=== PATIENT | female | born 1970 | race Caucasian/White ===

== ENCOUNTER 2020-08-29 11:15 | Outpatient (REF) | payer OTHER, SELFPAY | END 2020-08-29 11:16 | disposition home or self-care (01) | LOC: HO.LAB 11:15 | PROVIDERS: Visit Provider Internal Medicine | DX: Z20.828 Contact with and (suspected) exposure to other viral communicable diseases (principal) | CPT/HCPCS: C9803; U0003 ==

== ENCOUNTER → 2020-09-14 10:24 | Outpatient (BNVA) | payer OTHER, SELFPAY | PROVIDERS: Visit Provider Internal Medicine | DX: Z76.89 Persons encountering health services in other specified circumstances (principal) ==

== ENCOUNTER 2020-09-28 09:31 | Outpatient (REF) | payer OTHER, SELFPAY ==
[2020-09-28 10:31] LABS: Estimated Average Glucose 163 mg/dL; Hemoglobin A1c % 7.3 %
[2020-09-28 10:46] LABS: Alanine Aminotransferase 39 U/L (0-31); Albumin Level 4.3 g/dL (3.5-5.0); Alkaline Phosphatase 65 U/L (39-117); Anion Gap 14 (12-20); Aspartate Amino Transferase 27 U/L (5-31); Bilirubin Total 1.1 mg/dL (0.0-1.0); Blood Urea Nitrogen 15 mg/dL (9-16); Calcium 9.3 mg/dL (8.4-10.2); Carbon Dioxide 28 mmol/L (22-29); Chloride 100 mmol/L (96-108); Cholesterol 134 mg/dL; Estimated Glomerular Filt Rate > 60; Glucose Random 131 mg/dL (60-115); HDL Cholesterol 35 mg/dL; LDL Cholesterol Calculated 70 mg/dl; Potassium 4.7 mmol/l (3.3-5.1); Sodium 137 mmol/L (135-145); Total Protein 7.9 g/dL (6.5-8.0); Triglycerides 148 mg/dL
[2020-09-28 11:07] LABS: Free T4 (Free Thyroxine) 1.02 ng/dL (0.71-1.85); Thyroid Stimulating Hormone 5.97 uIU/mL (0.32-4.0); Vitamin D 25-OH Total 29.3 ng/mL (>30)
[2020-09-28 11:20] LABS: Creatinine Urine 129.17 mg/dL
[2020-09-28 11:33] LABS: Microalbum/Creatinine Ratio Ur 414.1 ug/mg cr
[2020-09-29 03:26] LABS: LDL Cholesterol Direct 80 mg/dL (<100)
== END 2020-09-28 09:32 | disposition home or self-care (01) ==
LOC: HO.LAB 09:31
PROVIDERS: Visit Provider Internal Medicine
DX: E11.9 Type 2 diabetes mellitus without complications (principal); E55.9 Vitamin D deficiency, unspecified; E03.9 Hypothyroidism, unspecified
CPT/HCPCS: 36415; 80053; 80061; 82043; 82306; 83036; 83721; 84439; 84443

== ENCOUNTER 2020-10-11 16:08 | Emergency (ER) | payer OTHER, SELFPAY ==
[2020-10-11 18:02] VITALS: BP 200/93; PULSE 66; RESP 16; TEMP 36.6; O2SAT 99; BMI 44.6
[2020-10-11 19:28] VITALS: BP 194/88; PULSE 68; RESP 16; O2SAT 99
--- NOTE | 2020-10-11 19:31 | ED.GENADULT ---
HPI - General Adult General Chief complaint: General Medical Stated complaint: Medical Refill Time Seen by Provider: 10/11/20 19:16 Source: patient Mode of arrival: ambulatory Limitations: no limitations History of Present Illness HPI narrative: Patient comes to emergency room requesting medication refill. Patient states she was patient of Dr. Caldera, unfortunately she has not been able to find another primary care physician. Patient has an appointment pending, however she ran out of lisinopril. Patient is asymptomatic, however, on triage she was noted that her blood pressure is 200/93 Related Data Home Medications Medication Instructions Recorded Confirmed atorvastatin 40 mg tablet 40 mg PO DAILY 09/14/20 09/14/20 chlorthalidone 25 mg tablet 12.5 mg PO DAILY 09/14/20 09/14/20 lisinopril 40 mg tablet 40 mg PO DAILY 09/14/20 09/14/20 metformin 500 mg tablet,extended 1,000 mg PO BID 09/14/20 09/14/20 release 24 hr metoprolol tartrate 100 mg tablet 100 mg PO BID 09/14/20 09/14/20 omeprazole 40 mg capsule,delayed 40 mg PO DAILY 09/14/20 09/14/20 release semaglutide 0.5 mg SUBCUT QWEEK ml 09/14/20 09/14/20 Previous Rx's Medication Instructions Recorded blood sugar diagnostic #100 ea 07/24/20 levothyroxine 125 mcg tablet 125 mcg PO DAILY 30 Days #30 tab 09/28/20 lisinopril 40 mg PO DAILY #90 tab 10/11/20 Allergies Allergy/AdvReac Type Severity Reaction Status Date / Time shellfish derived Allergy Severe ANAPHALAXIS Verified 09/14/20 11:16 [SHELLFISH DERIVED] Iodinated Contrast Media Allergy Unknown CAN NOT Verified 09/14/20 11:16 [IODINATED CONTRAST MEDIA - HAVE DUE IV DYE] TO SHELLFISH ALLERGY shellfish Allergy Unknown Unknown Uncoded 09/14/20 11:16 Review of Systems Review of Systems: Constitutional : No Weight loss, No Fever, No Chills, No Night Sweats, No Fatigue, No Malaise ENT/Mouth : No Hearing loss, No Ear Pain, No Nasal Congestion, No Sinus Pain, No Hoarseness, No sore throat, No Rhinorrhea, No Swallowing Difficulty Eyes: No Eye Pain, No Swelling, No Redness, No Foreign Body, No Discharge, No Vision Changes Cardiovascular : No Chest Pain, No SOB, No Dyspnea on Exertion, No Orthopnea, No Edema, No Palpitations Respiratory : No Cough, No Sputum, No Wheezing, No Smoke Exposure, No Dyspnea Gastrointestinal : No Nausea, No Vomiting, No Diarrhea, No Constipation, No abdominal Pain, No Hematochezia, No Melena Genitourinary : no irregular bleeding, No Dysuria, No Urinary Frequency, No Hematuria, No Urinary Incontinence, No Urgency, No Flank Pain, No Urinary Flow Changes, No Hesitancy Musculoskeletal : No joint pain, No Myalgias, No Joint Swelling Skin : No Skin Lesions, No rash Neuro : No Weakness, No Numbness, No Paresthesias, No Loss of Consciousness, No Dizziness, No Headache Psych : No Anxiety/Panic, No Depression, No SI/HI/AH/VH, No Social Issues, Heme/Lymph: No Bruising, No Bleeding,No Lymphadenopathy Endocrine : No Polyuria, No Polydipsia, No Temperature Intolerance PMFSH Past Medical History Medical History HLD (hyperlipidemia) HTN (hypertension) Hypothyroidism T2DM (type 2 diabetes mellitus) Vitamin D deficiency Surgical History Hx of section Family History Family History Father No problems noted. Mother Breast cancer Social History Social History Alcohol intake: former Smoking Status: Never smoker Advance Directives: No Advance Directives Information Provided: Yes Physical Exam Vital Signs: Vital Signs: Last Vital Signs Temp 97.8 F 10/11/20 18:02 Pulse 68 10/11/20 21:22 Resp 16 10/11/20 21:22 BP 149/84 H 10/11/20 21:22 Pulse Ox 99 10/11/20 21:22 Body Mass Index 44.6 Appearance: Alert. Oriented X3. No acute distress. Eyes: Pupils equal, round and reactive to light. ENT: Pharynx normal. Neck: Normal inspection. Neck supple. No lymph nodes noted. No crepitus CVS: Normal heart rate and rhythm. Pulses normal. Normal S1 and S2 Respiratory: No respiratory distress. Breath sounds normal. No Wheezing. No rales Abdomen: Soft and nontender. No rigidity. No distention. good BS x4 Skin: Skin warm and dry. Normal skin color. Normal skin turgor. Extremities: No lower extremity edema. No lower extremity edema. No Lacerations. No Rash Neuro: Oriented X 3. No motor deficit. No sensory deficit. Moving all extermities. No slurred speech. Course Course Course Narrative: Patient was given 1 dose of p.o. labetalol to control the blood pressure. Patient was given a prescription of lisinopril. Patient takes for other medications but states she has been off for over a month. Patient received 1 dose of p.o. labetalol, blood pressure is now 149/84, patient asymptomatic. Prescription to lisinopril as requested was sent to her pharmacy. Discharge Plan Discharge Clinical Impression: Medication refill HTN (hypertension) Qualifiers: Hypertension type: unspecified Qualified Code(s): I10 - Essential (primary) hypertension Patient Disposition: Home, Self-Care Instructions: Hypertension (ED) Additional Instructions: Please follow-up with your primary care physician tomorrow. If you have any worsening or new symptoms, please return to the emergency room or call 911 Prescriptions: New lisinopril 40 mg tablet 40 mg PO DAILY Qty: 90 RF: 0 No Action (DME) FreeStyle Precision [employer] Antonio Strips Strip See Rx Instructions .ROUTE .MEDSUPPLY Qty: 100 RF: 11 levothyroxine 125 mcg tablet 125 mcg PO DAILY 30 Days Qty: 30 RF: 11 metformin 500 mg tablet extended release 24 hr 1,000 mg PO BID RF: 0 omeprazole 40 mg capsule,delayed release(DR/EC) 40 mg PO DAILY RF: 0 metoprolol tartrate 100 mg tablet 100 mg PO BID RF: 0 atorvastatin 40 mg tablet 40 mg PO DAILY RF: 0 chlorthalidone 25 mg tablet 12.5 mg PO DAILY RF: 0 lisinopril 40 mg tablet 40 mg PO DAILY RF: 0 Ozempic 0.25 mg or 0.5 mg(2 mg/1.5 mL) pen injector 0.5 mg subcut QWEEK RF: 0
[2020-10-11 19:45] VITALS: BP 196/88; PULSE 68
[2020-10-11] MEDS: Labetalol HCL 100 MG TABLET PO (19:45)
[2020-10-11 20:27] VITALS: BP 189/81; PULSE 66; RESP 16; O2SAT 99
[2020-10-11 21:22] VITALS: BP 149/84; PULSE 68; RESP 16; O2SAT 99
== END 2020-10-11 21:41 | disposition home or self-care (01) ==
PROVIDERS: Emergency Provider Emergency Medicine
DX: I10 Essential (primary) hypertension (principal); Z76.0 Encounter for issue of repeat prescription; E11.9 Type 2 diabetes mellitus without complications
CPT/HCPCS: 99283; 99284

== ENCOUNTER 2020-12-05 10:47 | Outpatient (REF) | payer OTHER, SELFPAY ==
[2020-12-05 11:27] LABS: MANUAL DIFF FLAG NO
[2020-12-05 11:37] LABS: Basophils Percent Auto 0.4 % (0-2); Eosinophils Absolute Auto 0.2 X10*3/uL (0.0-0.4); Eosinophils Percent Auto 2.6 % (0-4); Hematocrit 37.4 % (37-47); Hemoglobin 11.6 g/dl (12.0-16.0); Imm Gran Abs Auto 0.04 X10*3/uL (0.00-0.03); Imm Gran Pct Auto 0.6 % (0.0-0.4); Lymphocytes Percent Auto 27.3 % (20-40); Mean Corpuscular Hemoglobin 25.6 pg (27.0-33.0); Mean Corpuscular Volume 82.4 fL (80-98); Mean Platelet Volume 10.2 fL (9.4-12.3); Monocytes Absolute Auto 0.6 X10*3/uL (0.1-1.2); Monocytes Percent Auto 8.9 % (2-11); Neutrophils Absolute Auto 4.4 X10*3/uL (2.0-8.3); Neutrophils Percent Auto 60.2 % (45-73); Platelet Count 259 X10*3/uL (160-400); Red Blood Count 4.54 X10*6/uL (4.20-5.50); Red Cell Distribution Width 14.2 % (11.0-16.0); White Blood Count 7.2 X10*3/uL (4.8-10.8)
[2020-12-05 11:41] LABS: Estimated Average Glucose 131 mg/dL; Hemoglobin A1c % 6.2 %
[2020-12-05 11:49] LABS: Glucose Urine UA NEG (NEG); Leukocyte Esterase Urine NEG (NEG); Nitrite Urine NEG (NEG); Specific Gravity - Urine >= 1.030 (1.005-1.025); Urine Blood TRACE (NEG); Urine Ketones NEG (NEG); Urine Protein 2+ MG/DL (NEG-TRACE)
[2020-12-05 12:05] LABS: Alanine Aminotransferase 43 U/L (0-31); Alkaline Phosphatase 60 U/L (39-117); Anion Gap 12 (12-20); Aspartate Amino Transferase 29 U/L (5-31); Bilirubin Total 0.9 mg/dL (0.0-1.0); Blood Urea Nitrogen 10 mg/dL (9-16); Calcium 9.4 mg/dL (8.4-10.2); Carbon Dioxide 25 mmol/L (22-29); Chloride 104 mmol/L (96-108); Estimated Glomerular Filt Rate > 60; Glucose Random 102 mg/dL (60-115); Potassium 4.4 mmol/L (3.3-5.1); Sodium 137 mmol/L (135-145); Total Protein 7.6 g/dL (6.5-8.0)
[2020-12-05 12:05] LABS: Appearance Urine HAZY; Color Urine YELLOW
[2020-12-05 12:06] LABS: Cholesterol 211 mg/dL; HDL Cholesterol 37 mg/dL; LDL Cholesterol Calculated 139 mg/dl; Triglycerides 177 mg/dL
[2020-12-05 12:16] LABS: Thyroid Stimulating Hormone 3.86 uIU/mL (0.32-4.0)
[2020-12-05 12:23] LABS: Bacteria Urine 1+ /LPF; RBC Urine 0-2 /HPF (0); Squamous Epithelial Cell Urine TRACE /LPF; WBC Urine 0 /HPF (0-4)
[2020-12-05 12:39] LABS: Creatinine Urine 70.78 mg/dL
[2020-12-05 12:52] LABS: Creatinine Urine 72.59 mg/dL
== END 2020-12-05 10:48 | disposition home or self-care (01) ==
LOC: HO.LAB 10:47
PROVIDERS: Absent Provider Internal Medicine; PCP Internal Medicine; Visit Provider Internal Medicine
DX: I10 Essential (primary) hypertension (principal); E03.9 Hypothyroidism, unspecified; E11.9 Type 2 diabetes mellitus without complications; E78.00 Pure hypercholesterolemia, unspecified
CPT/HCPCS: 36415; 80053; 80061; 81001; 81003; 82043; 83036; 84439; 84443; 85025

== ENCOUNTER → 2021-01-16 09:16 | Outpatient (REF) | payer OTHER, SELFPAY ==
--- NOTE | 2021-01-16 09:30 | CA_ITS ---
Transthoracic Echocardiogram Patient (Last, First, Middle): Marli Hanna J Gender: Female Date of : 1970 Age: 50 Procedure Date: 01/16/2021 Procedure Type: Transthoracic Echocardiogram Location: OP Height: 154.94 cm Weight: 104.33 kg BSA: 2.00 m2 Heart Rate: bpm BP: 140 / 90 mmHg Mobile Home Installer: Referring MD: Phill Banuelos MD Nanny/Household Manager: Tony Maddox MD Symptoms: R06.09 DYSPNEA, I49.9 CARDIAC ARRHYTHMIAS LVH PVCS Study Quality: Fair ECG Rhythm: Sinus Conclusions: - 1. Low normal LV systolic function with pseudonormal filling pattern 2. Mild mitral regurgitation 3. Normal RV systolic pressure 4. No pericardial effusion 5. Mildly dilated left atrium Findings Left Ventricle Normal left ventricular size, thickness, and systolic function. The visually estimated ejection fraction is between 50-55%. Spectral Doppler is indicative of a pseudonormal filling pattern. E/E prime ratio is between 8 and 15 consistent with indeterminate filling pressures. Right Ventricle Normal right ventricular cavity size and systolic function. Atria The left atrium is mildly dilated. There is no evidence of interatrial shunt. The right atrium is normal in size. Aortic Valve The aortic valve structure and function is likely normal. There is no aortic valve stenosis. There is no aortic valve regurgitation. Mitral Valve Normal mitral valve structure and function. There is mild mitral valve regurgitation. There is no mitral valve stenosis. Pulmonic Valve The pulmonic valve was not well visualized. Tricuspid Valve Likely normal tricuspid valve structure and function. There is trace tricuspid valve regurgitation. The right ventricular systolic pressure is normal. The right ventricular systolic pressure is 18 mmHg. There is no evidence of pulmonary hypertension. Great Vessels All visible segments of the aorta are normal in size. The pulmonary artery was not well visualized. Venous The inferior vena cava is normal in size and collapses greater than 50% with inspiration. Pericardium/Pleural There is no evidence of pericardial effusion. Prior Study Comparison No previous study in last 5 years for comparison. Measurements 2D Linear Measurements IVSd: 1.14 0.6-0.9/0.6-1.0 cm LVIDd: 5.17 3.9-5.3/4.2-5.9 cm LVIDd Index: 2.59 2.4-3.2/2.2-3.1 cm/m2 LVIDs: 3.79 2.0-3.6 cm LVPWd: 1.12 0.7-1.1 cm Ao Root: 2.60 2.1-3.5 cm LA Diam: 4.20 2.7-3.8/3.0-4.0 cm LAIDs Index: 2.10 1.5-2.3 cm/m2 LV Mass: 282.86 67-162/88-224 g LV Mass Index: 141.43 43-95/49-115 g/m2 LVOT Diam: 2.10 3.0+(-)1.3 cm Mitral Valve MV Pk E: 1.06 MV PK A: 0.72 MV Decel Time: 153.00 E/A: 1.50 E'Lateral: 7.16 E'Medial: 6.77 E/E' Med: 15.70 E/E' Lat: 14.80 PHT: 45.00 MVA PHT: 4.89 Decel [place]: 6.94 Aortic Valve AoV Pk Eric: 1.40 AoV Mn Eric: 0.92 AoV VTI: 0.34 AoV Pk Grad: 8.00 Aov Mn Grad: 4.00 TANIA Cont.VTI: 2.32 LVOT LVOT Pk Eric: 0.95 LVOT Mn Eric: 0.65 LVOT VTI: 0.23 LVOT Pk Grad: 4.00 LVOT Mn Grad: 2.00 LVOT Diam: 2.10 LVOT Area: 3.46 Diastolic Function MV Pk E: 1.06 MV Pk A: 0.72 E/A: 1.50 E'Medial: 6.77 E/E' Med: 15.70 E' Laterial: 7.16 E/E' Lat: 14.80 Tricuspid Valve TR Pk Eric: 1.91 TR Pk Grad: 15.00 RA Press: 3.00 RVSP: 18.00 Great Vessels Aorta Ao Root-2D: 2.60 2.0-3.7 cm Ao Asc: 3.00 2.1-3.4 cm Pulmonary Valve PV Pk Eric: 0.76 Peak PV Grad: 2.00 Updated in Other Vendor System with Status of Final Tony Maddox MD electronically signed on 01/16/2021 12:09:26 PM with status of Final
== END ==
LOC: HO.CARD 09:16
PROVIDERS: Visit Provider Internal Medicine
DX: R06.09 Other forms of dyspnea (principal); I49.9 Cardiac arrhythmia, unspecified; I49.3 Ventricular premature depolarization; I51.7 Cardiomegaly
CPT/HCPCS: 93306

== ENCOUNTER → 2021-01-30 12:44 | Outpatient (BNVA) | payer OTHER, SELFPAY | PROVIDERS: PCP Internal Medicine; Referring Provider Internal Medicine; Visit Provider Internal Medicine | DX: R06.02 Shortness of breath (principal); R94.31 Abnormal electrocardiogram [ECG] [EKG]; E11.8 Type 2 diabetes mellitus with unspecified complications; E78.5 Hyperlipidemia, unspecified; I10 Essential (primary) hypertension | CPT/HCPCS: 93005; 99202 ==

== ENCOUNTER → 2021-02-14 09:26 | Outpatient (BNVA) | payer OTHER, SELFPAY | PROVIDERS: PCP Internal Medicine; Visit Provider Internal Medicine ==

== ENCOUNTER → 2021-02-15 09:22 | Outpatient (REF) | payer OTHER, SELFPAY ==
--- NOTE | ~2021-02-15 | NM_ITS ---
Myocardial perfusion study Indication: Shortness of breath evaluate for myocardial ischemia Technique: The patient was brought in for a Lexiscan perfusion study on 02/15/2021. Patient performed low-level exercise and was injected 0.4 mg of Lexiscan intravenously. Within a minute of injection, 35 mCi of sestamibi was given intravenously. Images were obtained using the SPECT gamma camera interlaced with the gating device. Images were obtained in supine position. Resting perfusion study was performed on 02/19/2021. Patient was administered 35 mCi of sestamibi intravenously at rest. Images were then obtained in supine position. Images obtained with and without CT attenuation. Total DLP 180 mGy-cm. Images were processed with the software and compared side to side in short axis, horizontal long axis and vertical long axis views. Findings: The stress perfusion study showed nonattenuated images show minimal thinning in the distal lateral wall of the LV myocardium otherwise normal uptake of radiotracer in all segments of LV myocardium. Attenuated corrected images show minimal thinning of the distal septum of the LV myocardium.. The gated study shows normal LV systolic function with calculated LVEF of 56%. LV cavity is normal in size. The gated study shows normal systolic wall thickening and contraction of segments. Resting study shows nonattenuated images show normal uptake of radiotracer in all segments of myocardium except for minimal thinning of the distal lateral wall. Attenuation corrected images show mildly reduced uptake in the distal septum of the LV myocardium.. Gating at rest reveals normal systolic wall motion with ejection fraction at 53%. The findings are consistent with normal myocardial perfusion. NM/NM cardiolite stress test Impression: 1. Myocardial perfusion imaging study shows normal myocardial perfusion 2. Gated LVEF is 56% 3. Transient ischemic dilatation not present EKG is nondiagnostic for ischemia
--- NOTE | 2021-02-15 09:25 | CA_ITS ---
Acquisition Time: 2021-02-15 09:34:18 Total Exercise Time: 00:02:38 Test Indications: SOB Medications: Protocol: CLAUDY Max HR: 151 BPM 88% of Pred: 171 BPM Max BP: 198/076 mmHG Max Work Load: 4.6 METS Exercise stress test with exercise 2 min 38 sec of Claudy protocol, with moderate shortness of breath and request to slow exercise. Treadmill placed in recovery and slowed to 0.8 MPH. Testing changed to a pharmacological stress test with Lexiscan injection, without anginal symptoms, with isolated PVC and runs of ventricular bigeminy, with normotensive response to injection, with nondiagnostic EKG for ischemia. Nuclear images pending. Test reviewed with Dr Adame. Referred By: Stone Adame Overread By: JUDY MEADE
== END ==
LOC: HO.CARD 09:22
PROVIDERS: Visit Provider Internal Medicine
DX: R06.02 Shortness of breath (principal)
CPT/HCPCS: 78452; 93017; A9500; J0280; J2785

== ENCOUNTER 2021-03-02 09:05 | Outpatient (REF) | payer OTHER, SELFPAY ==
--- NOTE | ~2021-03-02 | MM_ITS ---
EXAMINATION: MM SCREENING DIGITAL BREAST TOMOSYNTHESIS, BILATERAL CLINICAL INFORMATION: Screening. Asymptomatic. The lifetime risk of breast cancer based on the Tyrer-Cuzick Model is 14%. COMPARISON: Mammography: 06/25/2017, 03/22/2016, 10/19/2014 TECHNIQUE: Digital breast tomosynthesis is performed in both the craniocaudal and mediolateral oblique views along with computer-aided detection (CAD). Synthesized 2D images are generated from the tomosynthesis. Additional views are provided: Exaggerated right CC, left CC, bilateral MLO. FINDINGS: The breasts are almost entirely fatty (ACR BI-RADS breast composition Category a). There are no significant masses, abnormal calcifications, or other abnormalities. Background stromal and fibroglandular densities are stable. There is a group of 3 punctate round calcifications central right breast mid depth. Mildly prominent draining vein again seen right axilla. The axillary nodes and skin contours are unremarkable. MM/MM tomosynthesis screening BI IMPRESSION: No significant changes from prior exams. ASSESSMENT: BI-RADS 2: Benign RECOMMENDATION: Routine annual mammography screening. This patient's information was entered into a reminder system with a target due date for their next mammogram.
--- NOTE | ~2021-03-02 | MM_ITS ---
EXAMINATION: BONE DENSITOMETRY CLINICAL INDICATION: Postmenopausal. COMPARISON: Baseline BD dated 03/20/2012. TECHNIQUE: Using a Prezto DXA System (software version: 13.1) manufactured by [employer], dual-energy x-ray absorptiometry was performed of the lumbar spine and left hip. The images are of good technical quality. Summary results are attached. FINDINGS: AP SPINE L1-L4: Current: BMD 1.152 g/cm2, Z-score -1.1, T-score -0.2, normal, 0.8% decrease from baseline (<5% change is not significant). Baseline: BMD 1.161 g/cm2. LEFT FEMUR, NECK: Current: BMD 1.074 g/cm2, Z-score 0.3, T-score 0.3, normal. Baseline: BMD 1.134 g/cm2. LEFT FEMUR, TOTAL: Current: BMD 1.259 g/cm2, Z-score 1.6, T-score 2.0, normal, 1.8% increase from baseline (<5% change is not significant). Baseline: BMD 1.237 g/cm2. IDENTIFIED RISK FACTORS: Early menopause, secondary osteoporosis. HISTORY OF FRACTURE: None listed. MEDICATIONS: None listed. MM/XR DEXA axial skeleton IMPRESSION: 1. DIAGNOSIS: Normal bone density based on the lowest T-score value of -0.2 in the lumbar spine applying World Health Organization criteria. 2. 10-YEAR FRACTURE RISK PREDICTION, FRAX: According to the guidelines, FRAX calculation should only be performed on patients in the osteopenia bone density category. Therefore, FRAX was not performed on this patient. 3. Treatment Recommendations: NOF guidelines recommend consideration for treatment in postmenopausal women and men age 50 and older presenting with the following: -A hip or vertebral (clinical or morphometric) fracture. -T-score less than or equal to -2.5 at the femoral neck or spine after appropriate evaluation to exclude secondary causes. -Low bone mass at the hip or spine and a 10-year fracture probability by FRAX of greater than or equal to 3% for hip fracture or greater than or equal to 20% for major osteoporotic fracture based on the [place] adapted WHO algorithm. 4. Other Recommendations: All treatment decisions require clinical judgment and consideration of individual patient factors, including patient preferences, comorbidities, previous drug use, risk factors not captured in the FRAX model (e.g. frailty, falls, vitamin D deficiency, increased bone turnover, interval significant decline in bone density) and possible under or overestimation of fracture risk by FRAX. FUTURE SCAN RECOMMENDATION: People with diagnosed cases of osteoporosis or at high risk for fracture should have regular bone mineral density tests. For patients eligible for Medicare, routine testing is allowed once every 2 years. The testing frequency can be increased to one year for patients who have rapidly progressing disease, those who are receiving or discontinuing medical therapy to restore bone mass, or have additional risk factors.
== END 2021-03-02 09:06 | disposition home or self-care (01) ==
LOC: HO.MAMMO 09:05
PROVIDERS: Visit Provider Internal Medicine
DX: Z12.31 Encounter for screening mammogram for malignant neoplasm of breast (principal); M81.8 Other osteoporosis without current pathological fracture; Z78.0 Asymptomatic menopausal state
CPT/HCPCS: 77063; 77067; 77080

== ENCOUNTER 2021-03-30 11:21 | Outpatient (REF) | payer OTHER, SELFPAY ==
[2021-03-30 12:57] LABS: MANUAL DIFF FLAG NO
[2021-03-30 13:02] LABS: Basophils Percent Auto 0.3 % (0-2); Eosinophils Percent Auto 0.5 % (0-4); Hematocrit 34.2 % (37-47); Hemoglobin 10.5 g/dl (12.0-16.0); Imm Gran Abs Auto 0.02 X10*3/uL (0.00-0.03); Imm Gran Pct Auto 0.3 % (0.0-0.4); Lymphocytes Absolute Auto 1.8 X10*3/uL (1.2-4.9); Lymphocytes Percent Auto 29.5 % (20-40); Mean Corpuscular HGB Conc 30.7 g/dl (31.0-35.0); Mean Corpuscular Hemoglobin 25.8 pg (27.0-33.0); Mean Platelet Volume 10.7 fL (9.4-12.3); Monocytes Absolute Auto 0.5 X10*3/uL (0.1-1.2); Monocytes Percent Auto 8.6 % (2-11); Neutrophils Absolute Auto 3.7 X10*3/uL (2.0-8.3); Neutrophils Percent Auto 60.8 % (45-73); Platelet Count 245 X10*3/uL (160-400); Red Blood Count 4.07 X10*6/uL (4.20-5.50); Red Cell Distribution Width 14.2 % (11.0-16.0); White Blood Count 6.1 X10*3/uL (4.8-10.8)
[2021-03-30 13:28] LABS: Estimated Average Glucose 157 mg/dL; Hemoglobin A1c % 7.1 %
[2021-03-30 13:37] LABS: Alanine Aminotransferase 43 U/L (0-31); Alkaline Phosphatase 68 U/L (39-117); Anion Gap 12 (12-20); Aspartate Amino Transferase 28 U/L (5-31); Bilirubin Total 0.9 mg/dL (0.0-1.0); Blood Urea Nitrogen 14 mg/dL (9-16); Calcium 9.9 mg/dL (8.4-10.2); Carbon Dioxide 27 mmol/L (22-29); Chloride 105 mmol/L (96-108); Estimated Glomerular Filt Rate > 60; Glucose Random 141 mg/dL (60-115); Sodium 139 mmol/L (135-145); Total Protein 7.7 g/dL (6.5-8.0)
[2021-03-30 13:40] LABS: Creatinine Urine 196.36 mg/dL
[2021-03-30 14:03] LABS: Free T4 (Free Thyroxine) 1.19 ng/dL (0.71-1.85); Thyroid Stimulating Hormone 3.89 uIU/mL (0.32-4.0)
[2021-03-30 14:07] LABS: Microalbum/Creatinine Ratio Ur 1594.5 ug/mg cr
== END 2021-03-30 11:22 | disposition home or self-care (01) ==
LOC: HO.WFDLDS 11:21
PROVIDERS: Visit Provider Internal Medicine
DX: E11.9 Type 2 diabetes mellitus without complications (principal); I10 Essential (primary) hypertension; E03.9 Hypothyroidism, unspecified
CPT/HCPCS: 36415; 80053; 82043; 83036; 84439; 84443; 85025

== ENCOUNTER 2021-08-29 09:01 | Outpatient (REF) | payer OTHER, SELFPAY | END 2021-08-29 09:02 | disposition home or self-care (01) | LOC: HO.LAB 09:01 | PROVIDERS: Visit Provider Internal Medicine | DX: Z20.822 Contact with and (suspected) exposure to COVID-19 (principal) | CPT/HCPCS: C9803; U0003; U0005 ==

== ENCOUNTER 2021-11-05 10:21 | Outpatient (REF) | payer OTHER, SELFPAY ==
[2021-11-05 11:05] LABS: MANUAL DIFF FLAG NO
[2021-11-05 11:16] LABS: Basophils Percent Auto 0.2 % (0-2); Eosinophils Percent Auto 0.2 % (0-4); Hematocrit 36.8 % (37.0-47.0); Hemoglobin 11.5 g/dl (12.0-16.0); Imm Gran Abs Auto 0.02 X10*3/uL (0.00-0.03); Imm Gran Pct Auto 0.3 % (0.0-0.4); Lymphocytes Percent Auto 32.4 % (20-40); Mean Corpuscular HGB Conc 31.3 g/dl (31.0-35.0); Mean Corpuscular Hemoglobin 25.4 pg (27.0-33.0); Mean Corpuscular Volume 81.2 fL (80.0-98.0); Mean Platelet Volume 10.3 fL (9.4-12.3); Monocytes Absolute Auto 0.5 X10*3/uL (0.1-1.2); Monocytes Percent Auto 7.9 % (2-11); Neutrophils Absolute Auto 3.7 x10*3/uL (2.0-8.3); Platelet Count 257 X10*3/uL (160-400); Red Blood Count 4.53 X10*6/uL (4.20-5.50); Red Cell Distribution Width 14.4 % (11.0-16.0); White Blood Count 6.2 X10*3/uL (4.8-10.8)
[2021-11-05 11:28] LABS: Estimated Average Glucose 226 mg/dL; Hemoglobin A1c % 9.5 %
[2021-11-05 11:59] LABS: Alanine Aminotransferase 46 U/L (0-31); Albumin Level 4.1 g/dL (3.5-5.0); Alkaline Phosphatase 74 U/L (39-117); Anion Gap 13 (12-20); Aspartate Amino Transferase 33 U/L (5-31); Bilirubin Total 0.8 mg/dL (0.0-1.0); Blood Urea Nitrogen 12 mg/dL (9-16); Calcium 10.1 mg/dL (8.4-10.2); Carbon Dioxide 27 mmol/L (22-29); Chloride 101 mmol/L (96-108); Cholesterol 133 mg/dL; Estimated Glomerular Filt Rate > 60; Glucose Random 185 mg/dL (60-115); HDL Cholesterol 31 mg/dL; LDL Cholesterol Calculated 75 mg/dl; Potassium 4.9 mmol/L (3.3-5.1); Sodium 136 mmol/L (135-145); Triglycerides 135 mg/dL
[2021-11-05 12:02] LABS: Magnesium 1.4 mg/dL (1.6-2.6); Phosphorus 3.8 mg/dL (2.7-4.5)
[2021-11-05 12:23] LABS: Free T4 (Free Thyroxine) 1.21 ng/dL (0.71-1.85); Thyroid Stimulating Hormone 8.89 uIU/mL (0.32-4.0); Vitamin D 25-OH Total 17.3 ng/mL (>30)
[2021-11-05 14:01] LABS: Microalbum/Creatinine Ratio Ur 2538.7 ug/mg cr
[2021-11-06 14:27] LABS: LDL Cholesterol Direct 86 mg/dL (<100)
[2021-11-06 17:46] LABS: Calcium (PTHI) 9.9 mg/dL (8.6-10.4); PTHI 44 pg/mL (14-64)
== END 2021-11-05 10:22 | disposition home or self-care (01) ==
LOC: HO.LAB 10:21
PROVIDERS: Absent Provider Internal Medicine; PCP Internal Medicine; Visit Provider Internal Medicine
DX: I10 Essential (primary) hypertension (principal); E03.9 Hypothyroidism, unspecified; E55.9 Vitamin D deficiency, unspecified; E11.8 Type 2 diabetes mellitus with unspecified complications
CPT/HCPCS: 36415; 80053; 80061; 82043; 82306; 83036; 83721; 83735; 83970; 84100; 84439; 84443; 85025

== ENCOUNTER → 2021-12-18 10:01 | Outpatient (BNVA) | payer OTHER, SELFPAY | PROVIDERS: PCP Internal Medicine; Visit Provider Nurse Practitioner Gerontology | DX: E11.65 Type 2 diabetes mellitus with hyperglycemia (principal); E78.5 Hyperlipidemia, unspecified; E03.9 Hypothyroidism, unspecified; E55.9 Vitamin D deficiency, unspecified; I10 Essential (primary) hypertension; Z79.84 Long term (current) use of oral hypoglycemic drugs | CPT/HCPCS: 82947; 99212 ==

== ENCOUNTER 2022-01-21 11:38 | Outpatient (REF) | payer OTHER, SELFPAY ==
[2022-01-21 12:41] LABS: Estimated Average Glucose 283 mg/dL; Hemoglobin A1c % 11.5 %
[2022-01-21 12:45] LABS: Anion Gap 13 (12-20); Blood Urea Nitrogen 15 mg/dL (9-16); Calcium 10.1 mg/dL (8.4-10.2); Carbon Dioxide 26 mmol/L (22-29); Chloride 99 mmol/L (96-108); Estimated Glomerular Filt Rate 48; Glucose Random 286 mg/dL (60-115); Magnesium 1.6 mg/dL (1.6-2.6); Potassium 4.9 mmol/L (3.3-5.1); Sodium 133 mmol/L (135-145)
[2022-01-21 13:08] LABS: Free T4 (Free Thyroxine) 1.34 ng/dL (0.71-1.85); Thyroid Stimulating Hormone 4.11 uIU/mL (0.32-4.0); Vitamin D 25-OH Total 28.9 ng/mL (>30)
== END 2022-01-21 11:39 | disposition home or self-care (01) ==
LOC: HO.LAB 11:38
PROVIDERS: PCP Internal Medicine; Visit Provider Internal Medicine
DX: E11.9 Type 2 diabetes mellitus without complications (principal); I10 Essential (primary) hypertension; E03.9 Hypothyroidism, unspecified; E55.9 Vitamin D deficiency, unspecified; E61.2 Magnesium deficiency
CPT/HCPCS: 36415; 80048; 82306; 83036; 83735; 84439; 84443

== ENCOUNTER 2022-06-04 09:31 | Outpatient (REF) | payer OTHER, SELFPAY ==
[2022-06-04 11:42] LABS: Estimated Average Glucose 128 mg/dL; Hemoglobin A1c % 6.1 %
[2022-06-04 12:05] LABS: Alanine Aminotransferase 26 U/L (0-31); Albumin Level 4.4 g/dL (3.5-5.0); Alkaline Phosphatase 71 U/L (39-117); Anion Gap 16 (12-20); Aspartate Amino Transferase 20 U/L (5-31); Bilirubin Total 0.9 mg/dL (0.0-1.0); Blood Urea Nitrogen 16 mg/dL (9-16); Calcium 10.4 mg/dL (8.4-10.2); Carbon Dioxide 27 mmol/L (22-29); Chloride 103 mmol/L (96-108); Estimated Glomerular Filt Rate > 60; Glucose Random 105 mg/dL (60-115); Potassium 4.7 mmol/L (3.3-5.1); Sodium 141 mmol/L (135-145); Total Protein 7.8 g/dL (6.5-8.0)
[2022-06-04 12:13] LABS: Free T4 (Free Thyroxine) 1.53 ng/dL (0.71-1.85)
== END 2022-06-04 09:32 | disposition home or self-care (01) ==
LOC: HO.LAB 09:31
PROVIDERS: PCP Internal Medicine; Visit Provider Internal Medicine
DX: I10 Essential (primary) hypertension (principal); E11.9 Type 2 diabetes mellitus without complications; E03.9 Hypothyroidism, unspecified; R79.89 Other specified abnormal findings of blood chemistry
CPT/HCPCS: 36415; 80053; 83036; 84439; 84443

== ENCOUNTER → 2022-06-20 07:39 | Outpatient (BNVA) | payer OTHER, SELFPAY | PROVIDERS: PCP Internal Medicine; Referring Provider Internal Medicine; Visit Provider Internal Medicine | DX: R94.31 Abnormal electrocardiogram [ECG] [EKG] (principal); I49.9 Cardiac arrhythmia, unspecified; I10 Essential (primary) hypertension | CPT/HCPCS: 93005; 99212 ==

== ENCOUNTER → 2022-08-19 11:05 | Outpatient (REF) | payer OTHER, SELFPAY | LOC: HO.CARD 11:05 | PROVIDERS: PCP Internal Medicine; Visit Provider Internal Medicine | DX: I49.9 Cardiac arrhythmia, unspecified (principal) | CPT/HCPCS: 93242 ==

== ENCOUNTER 2023-01-28 09:34 | Emergency (ER) | payer OTHER, SELFPAY ==
--- NOTE | ~2023-01-28 | XR_ITS ---
EXAMINATION: XR KNEE, RIGHT CLINICAL INFORMATION: Knee pain. COMPARISON: None available. TECHNIQUE: Four views of the right knee. FINDINGS: There is mild suprapatellar joint effusion. No loose bodies or bony erosive changes seen. There is mild superior patellar spurring. The soft tissues are normal. XR/XR knee RT 3V IMPRESSION: Mild suprapatellar joint effusion. No visible acute fracture, dislocation or subluxation seen. Anterior superior patellar enthesophyte.
--- NOTE | ~2023-01-28 | US_ITS ---
EXAMINATION: US VENOUS ULTRASOUND WITH DOPPLER LOWER EXTREMITY, RIGHT CLINICAL INFORMATION: Pain and swelling right lower leg COMPARISON: None available. TECHNIQUE: Ultrasound of the deep veins is performed from the hip to the calf with compression sonography and color and pulse Doppler assessment. Spectral analysis with color-flow imaging is performed. FINDINGS: There is normal venous compression and respiratory variation and augmented flow. The visualized common femoral vein, superficial femoral vein, profunda femoral vein, popliteal vein, and the trifurcation region shows no evidence of deep venous thrombosis. There is no significant popliteal fossa cyst. If the patient's symptoms persist, followup ultrasound in 5 days 7 days might be of value to exclude proximal propagation from a non-visualized calf vein. US/US venous duplex LE RT IMPRESSION: No DVT demonstrated in the right lower extremity.
[2023-01-28 09:44] VITALS: BP 151/77; PULSE 79; RESP 18; TEMP 36.1; O2SAT 97; BMI 43.5
--- NOTE | 2023-01-28 13:35 | ED_ITS ---
HPI - Extremity Problem General Chief complaint: Extremity Problem Stated complaint: R leg pain Time Seen by Provider: 01/28/23 09:58 History of Present Illness HPI Narrative: patient complains of pain in the right thigh and posterior and lateral right knee for several days which became worse today without injury She has had no trauma no fever denies any redness, denies any significant swelling, no other joint pains Related Data Home Medications Medication Instructions Recorded Confirmed metoprolol tartrate 100 mg tablet 100 mg PO BID 09/14/20 06/20/22 amlodipine 5 mg tablet 5 mg PO BID 01/30/21 06/20/22 omeprazole 40 mg capsule,delayed 40 mg PO DAILY PRN 02/14/21 06/20/22 release chlorthalidone 25 mg tablet 25 mg PO DAILY 06/20/22 06/20/22 dulaglutide 1.5 mg/0.5 mL 1.5 mg subcut QWEEK 06/20/22 06/20/22 subcutaneous pen injector (Trulicity) metformin 500 mg tablet 1,000 mg PO BID 06/20/22 06/20/22 Previous Rx's Medication Instructions Recorded lisinopril 40 mg tablet 40 mg PO DAILY #90 tabs 10/11/20 atorvastatin 80 mg tablet 80 mg PO BEDTIME 30 days #30 tabs 02/14/21 cholecalciferol (vitamin D3) 1,250 1,250 mcg PO QWEEK 8 weeks #8 caps 11/05/21 mcg (50,000 unit) capsule cholecalciferol (vitamin D3) 50 50 mcg PO DAILY 30 days #30 caps 11/05/21 mcg (2,000 unit) capsule levothyroxine 137 mcg tablet 137 mcg PO DAILY 30 days #30 tabs 11/05/21 blood sugar diagnostic (FreeStyle #50 ea 12/18/21 Lite Strips) acetaminophen 300 mg-codeine 30 mg 1 tab PO Q6H PRN pain #14 tabs 01/28/23 tablet Allergies Allergy/AdvReac Type Severity Reaction Status Date / Time shellfish derived Allergy Severe ANAPHALAXIS Verified 01/28/23 09:56 [SHELLFISH DERIVED] Iodinated Contrast Media Allergy Unknown CAN NOT Verified 01/28/23 09:56 [IODINATED CONTRAST MEDIA - HAVE DUE IV DYE] TO SHELLFISH ALLERGY [facility] Past Medical History Medical History (Updated 01/29/23 @ 00:01 by Background Daemon) HLD (hyperlipidemia) HTN (hypertension) Hypothyroidism T2DM (type 2 diabetes mellitus) Type 2 diabetes mellitus with diabetic neuropathy, unspecified Vitamin D deficiency Surgical History History of cholecystectomy Hx of section Family History Family History Father Hypertension Heart disease Mother Breast cancer Social History Social History Alcohol intake: former Patient Tobacco Use Status: Never used Tobacco Advance Directives: No Advance Directives Information Provided: No Patient : No Physical Exam Vital Signs: Vital Signs: Last Vital Signs Temp 97 F 01/28/23 09:44 Pulse 79 01/28/23 09:44 Resp 18 01/28/23 09:44 BP 151/77 H 01/28/23 09:44 Pulse Ox 97 01/28/23 09:44 O2 Del Method Room Air 01/28/23 09:44 BMI result Body Mass Index 43.5 General appearance no distress Head is normocephalic atraumatic Neck is supple Chest wall nontender Chest clear to auscultation bilateral No pleuritic pain no respiratory distress Extremities full range of motion x4 The right lower extremity had some posterior knee and posterior thigh tenderness as well as right knee tenderness, there is no redness or warmth the right knee extends to 180 and flexes past 90, there is mild swelling, skin is otherwise intact, patient can do straight leg raise no ligamentous laxity Skin no rash Neuro no focal motor sensory deficits Course Course Course Narrative: ultrasound was negative for DVT X-ray of the right knee showed some mild effusion and arthritis On exam circulation is good, there is no evidence of infection no evidence of septic joint and patient is discharged with analgesics and advised if posterior leg pain continues follow with her doctor for repeat outpatient ultrasound in a week to confirm there is no DVT Medications Administered Discontinued Medications Generic Name Dose Route Start Last Admin Trade Name Freq PRN Reason Stop Dose Admin Acetaminophen/Codeine Phosphate 1 tab 01/28/23 11:55 01/28/23 12:08 Acetaminophen With Codeine # 3 Tablet PO 01/28/23 11:56 1 tab ONCE ONE Administration Discharge Plan Discharge Clinical Impression: Leg pain Patient Disposition: Home, Self-Care Additional Instructions: we are not sure what is causing the pain in the back of her leg Ultrasound did not show any evidence of blood clot x-ray of your right knee showed some mild arthritis At this time there is no sign of any dangerous condition or infection If pain in the back of the leg continues follow with your doctor for repeat ultrasound in 1 week to confirm that you are not developing a clot If pain continues follow with primary or orthopedist for further evaluation Prescriptions: New acetaminophen-codeine 300-30 mg tablet 1 tab PO Q6H PRN (Reason: pain) Qty: 14 0RF No Action levothyroxine 137 mcg tablet 137 mcg PO DAILY 30 Days Qty: 30 3RF cholecalciferol (vitamin D3) 50 mcg (2,000 unit) capsule 50 mcg PO DAILY 30 Days Qty: 30 11RF cholecalciferol (vitamin D3) 1,250 mcg (50,000 unit) capsule 1,250 mcg PO QWEEK 56 Days Qty: 8 0RF lisinopril 40 mg tablet 40 mg PO DAILY Qty: 90 0RF metoprolol tartrate 100 mg tablet 100 mg PO BID omeprazole 40 mg capsule,delayed release(DR/EC) 40 mg PO DAILY PRN atorvastatin 80 mg tablet 80 mg PO BEDTIME 30 Days Qty: 30 11RF amlodipine 5 mg tablet 5 mg PO BID (DME) FreeStyle Lite Strips Strip See Rx Instructions .ROUTE .MEDSUPPLY Qty: 50 11RF Rx Instructions: As directed twice a day Trulicity 1.5 mg/0.5 mL pen injector 1.5 mg subcut QWEEK metformin 500 mg tablet 1,000 mg PO BID chlorthalidone 25 mg tablet 25 mg PO DAILY Referrals: Fabricio Millan MD [Physician] - ( right knee pain) Stand Alone Forms: Work/School Release Interventions: ED Discharge Assessment Last Done: 01/28/23 13:47 Discharge Date/Time: 01/28/23 13:47
== END 2023-01-28 13:47 | disposition home or self-care (01) ==
PROVIDERS: Emergency Provider Emergency Medicine; PCP Internal Medicine
DX: M79.604 Pain in right leg (principal); E11.9 Type 2 diabetes mellitus without complications; I10 Essential (primary) hypertension; E78.5 Hyperlipidemia, unspecified; Z79.85 Long-term (current) use of injectable non-insulin antidiabetic drugs; Z79.84 Long term (current) use of oral hypoglycemic drugs; Z79.02 Long term (current) use of antithrombotics/antiplatelets; Z79.899 Other long term (current) drug therapy
CPT/HCPCS: 73562; 93971; 99284

== ENCOUNTER 2024-02-05 12:22 | Outpatient (REF) | payer OTHER, SELFPAY ==
[2024-02-05 13:22] LABS: MANUAL DIFF FLAG NO
[2024-02-05 13:40] LABS: Basophils Percent Auto 0.3 % (0-2); Eosinophils Percent Auto 0.2 % (0-4); Hematocrit 38.2 % (37.0-47.0); Hemoglobin 12.4 g/dl (12.0-16.0); Imm Gran Abs Auto 0.02 X10*3/uL (0.00-0.03); Imm Gran Pct Auto 0.3 % (0.0-0.4); Lymphocytes Absolute Auto 2.1 X10*3/uL (1.2-4.9); Mean Corpuscular HGB Conc 32.5 g/dl (31.0-35.0); Mean Corpuscular Hemoglobin 26.6 pg (27.0-33.0); Mean Platelet Volume 11.3 fL (9.4-12.3); Monocytes Absolute Auto 0.6 X10*3/uL (0.1-1.2); Monocytes Percent Auto 9.3 % (2-11); Neutrophils Absolute Auto 3.4 x10*3/uL (2.0-8.3); Neutrophils Percent Auto 55.9 % (45-73); Platelet Count 265 X10*3/uL (160-400); Red Blood Count 4.66 X10*6/uL (4.20-5.50); Red Cell Distribution Width 13.4 % (11.0-16.0)
[2024-02-05 13:42] LABS: Estimated Average Glucose 346 mg/dL; Hemoglobin A1c % 13.7 % (<6.0)
[2024-02-05 13:54] LABS: Alanine Aminotransferase 23 U/L (0-31); Albumin Level 3.8 g/dL (3.5-5.0); Alkaline Phosphatase 66 U/L (39-117); Anion Gap 13 (12-20); Aspartate Amino Transferase 23 U/L (5-31); Bilirubin Total 0.7 mg/dL (0.0-1.0); Blood Urea Nitrogen 15 mg/dL (9-16); Calcium 9.8 mg/dL (8.4-10.2); Carbon Dioxide 26 mmol/L (22-29); Chloride 102 mmol/L (96-108); Estimated Glomerular Filt Rate 46; Magnesium 1.4 mg/dL (1.6-2.6); Potassium 4.5 mmol/L (3.3-5.1); Sodium 136 mmol/L (135-145); Total Protein 7.8 g/dL (6.5-8.0)
[2024-02-05 14:08] LABS: Thyroid Stimulating Hormone 5.35 uIU/mL (0.32-4.0); Vitamin D 25-OH Total 20.3 ng/mL (>30)
[2024-02-05 14:28] LABS: Creatinine Urine 142.45 mg/dL
[2024-02-05 14:39] LABS: Microalbumin Urine > 2000.0 mg/L
[2024-02-05 15:38] LABS: Glucose Random 380 mg/dL (60-115)
== END 2024-02-05 12:23 | disposition home or self-care (01) ==
LOC: HO.10HDL 12:22
PROVIDERS: Visit Provider Internal Medicine
DX: E11.9 Type 2 diabetes mellitus without complications (principal); I10 Essential (primary) hypertension; E03.9 Hypothyroidism, unspecified; N18.9 Chronic kidney disease, unspecified; E55.9 Vitamin D deficiency, unspecified
CPT/HCPCS: 36415; 80053; 82043; 82306; 82570; 83036; 83735; 84439; 84443; 85025

== ENCOUNTER 2024-05-26 09:44 | Outpatient (AMB) | payer OTHER, SELFPAY ==
--- NOTE | 2024-05-26 09:34 | HO.NEPHOV_ITS ---
Vital Signs 05/26/24 09:46 Height 5 ft 1 in Weight 205 lb BMI 38.7 BP 148/88 H Blood Pressure Location Lt brachial Position Sitting Pulse 76 Pulse Source Pulse Oximeter Pulse Oximetry (%) 98 Oxygen Delivery Method Room Air Intake Visit Reasons: Proteinuria/ Conf Safety Engineer Pressure Vessels Required: No Accompanied by: Daughter Allergies shellfish derived [SHELLFISH DERIVED] Allergy (Severe, Verified 05/26/24 09:49) ANAPHALAXIS Iodinated Contrast Media [IODINATED CONTRAST MEDIA - IV DYE] Allergy (Unknown, Verified 05/26/24 09:49) CAN NOT HAVE DUE TO SHELLFISH ALLERGY Medication List - Last Reconciled 05/26/24 by Heather Vargas, DNP, MARKETING PROGRAM MANAGER-BC amlodipine 5 mg PO BID blood sugar diagnostic (FreeStyle Lite Strips) As directed twice a day chlorthalidone 25 mg PO DAILY levothyroxine 137 mcg PO DAILY 30 days lisinopril 40 mg PO DAILY metformin 1,000 mg PO BID metoprolol tartrate 100 mg PO BID omeprazole 40 mg PO DAILY PRN HPI Comments Details: Pt is a 53 y/o female with a medical history of CKD stage 3a, proteinuria, uncontrolled DMII, HTN, RLS, GERD, hypercholesterolemia, morbid obesity, hx of cholecystectomy. Some diastolic dysfunction 2/2 HTN per cardiology in 2021 based on echo. She was referred by her PCP Dr Banuelos for proteinuria. non-smoker alcohol none no other drugs she takes chlorthalidone 25mg (pt reports taking every other day, not daily), amlodipine 5mg BID, lisinopril 40mg daily, metoprolol 100mg daily for blood pr essure control. she takes metformin 500mg BID and trulicity 1.5mg weekly SC injection for management of her diabetes. Most recent a1c was 13.7 in January she takes vitamin D 2000iu daily magnesium OTC due to low magnesium level per PCP, takes two daily dose unclear. does not see other providers outside of her PCP. has had ongoing proteinuria since at least 2018, DMII longstanding microalbumin to creatinine ratio 1404 in January, she has been elevated since at least 2018 (at that time ratio was 1596) blood pressures 140s/90s at home, taking medication as prescribed with exception of chlorthalidone which she takes every other day, not daily diet: uses a lot of salt, fair amount of ham, does eat low-sodium chips but they are not sodium-free sugars are high but does not check daily reports she recently lost 25lbs by losing more vegetables, cut down on rice to once weekly as well but still could improve, bread is my weakness. no shortness of breath no chest pain denies urinary symptoms- no burning, frequency, urgency, nocturia, blood in urine or flank pain. [facility] Medical History (Updated 05/26/24 @ 11:47 by Heather Vargas, DNP, MARKETING PROGRAM MANAGER-BC) Type 2 diabetes mellitus with diabetic neuropathy, unspecified Hypothyroidism Vitamin D deficiency HLD (hyperlipidemia) HTN (hypertension) T2DM (type 2 diabetes mellitus) Surgical History History of cholecystectomy Hx of section Family History Father Hypertension Heart disease Mother Breast cancer Social History Alcohol intake: former Patient Tobacco Use Status: Never used Tobacco Review of Systems Const All systems reviewed & are unremarkable except as noted in HPI and below Card Denies chest pain, Denies leg edema and Denies dyspnea Resp Denies dyspnea GI Reports no additional complaints Denies hematuria, Denies difficulty voiding, Denies nocturia, Denies dysuria, Denies flank pain and Denies urinary urgency Musc Denies arthralgias and Denies joint swelling Skin/Breast Denies rash Physical Exam Vital Signs: Last Vital Signs Pulse 76 05/26/24 09:46 BP 148/88 H 05/26/24 09:46 Pulse Ox 98 05/26/24 09:46 Oxygen Delivery Method Room Air 05/26/24 09:46 BMI result Body Mass Index 38.7 Const Other: General: No acute distress, well-appearing. Neck: No lymphadenopathy, no thyromegaly. No JVD. Resp: Clear to auscultation bilaterally. Cardio: Regular rate, regular rhythm; Heart sounds: S1 normal heart sound present and S2 normal heart sound present. No JVD. No lower extremity edema. GI: soft, nontender, no guarding. : No CVA tenderness. Skin: no rashes or lesions noted Neuro: Alert, oriented to person, place, time. Moves all extremities spontaneously. Results Reviewed Nephrology Results: Hgb 12.4 g/dl (12.0-16.0) 02/05/24 WBC 6.0 X10*3/uL (4.8-10.8) 02/05/24 Plt Count 265 X10*3/uL (160-400) 02/05/24 Sodium 136 mmol/L (135-145) 02/05/24 Potassium 4.5 mmol/L (3.3-5.1) 02/05/24 Chloride 102 mmol/L (96-108) 02/05/24 Carbon Dioxide 26 mmol/L (22-29) 02/05/24 BUN 15 mg/dL (9-16) 02/05/24 Creatinine 1.22 mg/dL (0.5-1.4) 02/05/24 Calcium 9.8 mg/dL (8.4-10.2) 02/05/24 Urine Creatinine 142.45 mg/dL 02/05/24 Assessment & Plan Assessment & Plan (1) Type 2 diabetes mellitus with diabetic neuropathy, unspecified: Code(s): E11.40 - Type 2 diabetes mellitus with diabetic neuropathy, unspecified Category: Medical Qualifiers: Diabetes mellitus halfway insulin use: without intermediate teacher use Qualified Code(s): E11.40 - Type 2 diabetes mellitus with diabetic neuropathy, unspecified (2) Proteinuria: Code(s): R80.9 - Proteinuria, unspecified Category: Medical Qualifiers: Proteinuria type: persistent Qualified Code(s): R80.1 - Persistent proteinuria, unspecified (3) CKD (chronic kidney disease): Code(s): N18.9 - Chronic kidney disease, unspecified Category: Medical Plan 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 will get renal US to rule out FSGS given longstanding obesity workup including serum electrophoresis has been completed, non-diabetic cause of proteinuria seem less likely blood pressure is suboptimally controlled today, pt only taking chlorthalidone every other day, advised to start taking daily patient would benefit from starting jardiance, would recommend starting this for renal protection and improved diabetic control advised reduce salt in diet continue to work on additional weight loss continue to work on improving blood sugar control pt to get labs tomorrow and renal ultrasound, she will return in 4-6 weeks Orders: Orders Magnesium 05/27/24 E11.40 - Type 2 diabetes mellitus with diabetic neuropathy, unspecified US renal BI Today E11.40 - Type 2 diabetes mellitus with diabetic neuropathy, unspecified, R80.9 - Proteinuria, unspecified Basic Metabolic Panel 05/27/24. - Type 2 diabetes mellitus with diabetic neuropathy, unspecified, N18.30 - Chronic kidney disease, stage 3 unspecified Vitamin D 1,25 dihydroxy 05/27/24. - Type 2 diabetes mellitus with diabetic neuropathy, unspecified, R79.89 - Other specified abnormal findings of blood chemistry, R80.9 - Proteinuria, unspecified Parathyroid Hormone Intact 05/27/24. - Type 2 diabetes mellitus with diabetic neuropathy, unspecified Phosphorus 05/27/24 - Type 2 diabetes mellitus with diabetic neuropathy, unspecified TSH reflex Free T4 05/27/24 E03.9 - Hypothyroidism, unspecified, - Type 2 diabetes mellitus with diabetic neuropathy, unspecified UA w Microscopic 05/27/24 - Type 2 diabetes mellitus with diabetic neuropathy, unspecified Coding Level of Care Code New Pt Level 4 (12444) Diagnoses Type 2 diabetes mellitus with diabetic neuropathy, without long-term current use of insulin Diabetes mellitus halfway insulin use: without halfway use Persistent proteinuria R80.1 Proteinuria type: persistent CKD (chronic kidney disease) N18.9
[2024-05-26 09:46] VITALS: BP 148/88; PULSE 76; O2SAT 98; BMI 38.7
== END 2024-05-26 10:15 | disposition home or self-care (01) ==
PROVIDERS: PCP Internal Medicine; Visit Provider Internal Medicine Hypertension Specialist
DX: E11.40 Type 2 diabetes mellitus with diabetic neuropathy, unspecified (principal); R80.1 Persistent proteinuria, unspecified; N18.9 Chronic kidney disease, unspecified
CPT/HCPCS: 99204

== ENCOUNTER → 2024-05-26 09:44 | Outpatient (BNVA) | payer OTHER, SELFPAY | PROVIDERS: PCP Internal Medicine; Visit Provider Internal Medicine Hypertension Specialist | DX: E11.65 Type 2 diabetes mellitus with hyperglycemia (principal); E11.40 Type 2 diabetes mellitus with diabetic neuropathy, unspecified; R80.1 Persistent proteinuria, unspecified; N18.9 Chronic kidney disease, unspecified | CPT/HCPCS: 99202 ==

== ENCOUNTER 2024-05-31 09:49 | Outpatient (REF) | payer OTHER, SELFPAY ==
[2024-05-31 10:05] LABS: MANUAL DIFF FLAG NO
[2024-05-31 11:03] LABS: Basophils Percent Auto 0.3 % (0-2); Hematocrit 38.1 % (37.0-47.0); Hemoglobin 12.4 g/dl (12.0-16.0); Imm Gran Abs Auto 0.04 X10*3/uL (0.00-0.03); Imm Gran Pct Auto 0.6 % (0.0-0.4); Lymphocytes Absolute Auto 2.1 X10*3/uL (1.2-4.9); Lymphocytes Percent Auto 32.6 % (20-40); Mean Corpuscular HGB Conc 32.5 g/dl (31.0-35.0); Mean Corpuscular Volume 82.8 fL (80.0-98.0); Mean Platelet Volume 10.4 fL (9.4-12.3); Monocytes Absolute Auto 0.6 X10*3/uL (0.1-1.2); Neutrophils Absolute Auto 3.6 x10*3/uL (2.0-8.3); Neutrophils Percent Auto 56.5 % (45-73); Platelet Count 264 X10*3/uL (160-400); Red Cell Distribution Width 13.5 % (11.0-16.0); White Blood Count 6.3 X10*3/uL (4.8-10.8)
[2024-05-31 11:12] LABS: Estimated Average Glucose 246 mg/dL; Hemoglobin A1c % 10.2 % (<6.0)
[2024-05-31 11:35] LABS: Alanine Aminotransferase 25 U/L (0-31); Alkaline Phosphatase 70 U/L (39-117); Anion Gap 13 (12-20); Aspartate Amino Transferase 22 U/L (5-31); Bilirubin Total 0.7 mg/dL (0.0-1.0); Blood Urea Nitrogen 14 mg/dL (9-16); Calcium 10.1 mg/dL (8.4-10.2); Carbon Dioxide 25 mmol/L (22-29); Chloride 104 mmol/L (96-108); Cholesterol 225 mg/dL (<200); Estimated Glomerular Filt Rate 40; Glucose Fasting 197 mg/dL (60-99); HDL Cholesterol 39 mg/dL (>40); LDL Cholesterol Calculated 152 mg/dL (<100); Potassium 4.5 mmol/L (3.3-5.1); Sodium 137 mmol/L (135-145); Total Protein 8.3 g/dL (6.5-8.0); Triglycerides 173 mg/dL (<150)
[2024-05-31 11:51] LABS: Thyroid Stimulating Hormone 8.96 uIU/mL (0.32-4.0)
[2024-05-31 12:45] LABS: Creatinine Urine 46.21 mg/dL
[2024-05-31 12:46] LABS: Microalbum/Creatinine Ratio Ur 4286.9 ug/mg cr (<30)
== END 2024-05-31 09:50 | disposition home or self-care (01) ==
LOC: HO.LAB 09:49
PROVIDERS: Absent Provider Nurse Practitioner Family; PCP Internal Medicine; Visit Provider Internal Medicine
DX: N18.30 Chronic kidney disease, stage 3 unspecified (principal); E11.40 Type 2 diabetes mellitus with diabetic neuropathy, unspecified
CPT/HCPCS: 36415; 80053; 80061; 82043; 82570; 83036; 84443; 85025

== ENCOUNTER 2024-06-02 09:41 | Outpatient (AMB) | payer OTHER, SELFPAY ==
[2024-06-02 09:42] VITALS: BP 130/76; PULSE 71; BMI 38.7
--- NOTE | 2024-06-02 09:42 | A.OFFVIS_ITS ---
Vital Signs 06/02/24 09:42 Height 5 ft 1 in Weight 204 lb 9.423 oz BMI 38.7 BP 130/76 Blood Pressure Location Lt brachial Position Sitting Pulse 71 Pulse Source Monitor Intake Visit Reasons: F/U Per Croke HTN/PVCs Vaccines Solutions Specialist Required: No Accompanied by: Self / Same As Patient Allergies shellfish derived [SHELLFISH DERIVED] Allergy (Severe, Verified 05/26/24 09:49) ANAPHALAXIS Iodinated Contrast Media [IODINATED CONTRAST MEDIA - IV DYE] Allergy (Unknown, Verified 05/26/24 09:49) CAN NOT HAVE DUE TO SHELLFISH ALLERGY Medication List - Last Reconciled 06/02/24 by Stone Adame MD amlodipine 5 mg PO BID blood sugar diagnostic (FreeStyle Lite Strips) As directed twice a day chlorthalidone 25 mg PO DAILY levothyroxine 137 mcg PO DAILY 30 days lisinopril 40 mg PO DAILY metformin 1,000 mg PO BID metoprolol tartrate 100 mg PO BID omeprazole 40 mg PO DAILY PRN HPI Comments Details: Marli has been referred for follow-up again. Last seen in 2021. She carries a diagnosis of diastolic dysfunction as well as PVCs. Many cardiovascular risk factors including diabetes, hypertension, dyslipidemia. In the past, shortness of breath led to evaluation and diagnosis of diastolic dysfunction. She has also had PVCs on EKG but no symptoms. Overall, she states she feels well. She states that her PCP wanted her to get re-evaluated. [facility] Medical History (Updated 06/02/24 @ 11:36 by Stone Adame MD) Type 2 diabetes mellitus with diabetic neuropathy, unspecified Hypothyroidism Vitamin D deficiency HLD (hyperlipidemia) HTN (hypertension) T2DM (type 2 diabetes mellitus) Surgical History History of cholecystectomy Hx of section Family History Father Hypertension Heart disease Mother Breast cancer Social History Alcohol intake: former Patient Tobacco Use Status: Never used Tobacco Review of Systems Const Denies chills, Denies fatigue, Denies fever(s), Denies frequent falls, Denies weakness, Denies weight gain and Denies weight loss ENT Denies dizziness Card Denies chest pain, Denies leg edema, Denies lightheadedness, Denies palpitations, Denies dyspnea and Denies dyspnea on exertion Resp Denies cough, Denies dyspnea and Denies dyspnea on exertion GI Denies hematochezia Musc Denies abnormal gait, Denies muscle weakness, Denies numbness, Denies radiating pain into limb and Denies tingling Neuro Denies abnormal gait, Denies dizziness, Denies frequent falls, Denies numbness, Denies tingling and Denies weakness Endo Denies fatigue and Denies palpitations Physical Exam Vital Signs: Last Vital Signs Pulse 71 06/02/24 09:42 BP 130/76 06/02/24 09:42 BMI result Body Mass Index 38.7 Const General: comfortable and no acute distress Orientation/consciousness: patient oriented x3 HEENT Other: Unremarkable Head: Yes normal to inspection Neck Neck: Yes normal visual inspection Chest Chest palpation & inspection: normal inspection of the chest Resp Auscultation: clear to auscultation bilaterally Cardio Palpation: normal PMI Heart sounds: S1 normal heart sound present, S2 normal heart sound present, no gallops, no murmurs and no rubs GI Palpation (GI): Soft to palpation Back/Spine/Pelvis Other: unremarkable Skin General skin exam: no rashes or lesions noted Neuro General: patient oriented x3 Extrem General: Yes normal to inspection Psych Mental Status: mental status grossly normal Office Procedures EKG Details: EKG with underlying sinus rhythm at 71/Min; frequent PVCs; LVH with repolarization changes; [place] [id number], Complete Assessment & Plan Assessment & Plan (1) PVC (premature ventricular contraction): Code(s): I49.3 - Ventricular premature depolarization Category: Medical (2) Diastolic dysfunction: Code(s): I51.89 - Other ill-defined heart diseases Category: Medical (3) Essential hypertension: Code(s): I10 - Essential (primary) hypertension Category: Medical (4) Type 2 diabetes mellitus with unspecified complications: Code(s): E11.8 - Type 2 diabetes mellitus with unspecified complications Category: Medical Plan Baseline EKG shows sinus rhythm with PVCs. Echocardiogram 2020 with low-normal LVEF at 50-55%, moderate diastolic dysfunction, mild left atrial dilatation. Myocardial perfusion imaging study 2020 unremarkable. Holter monitor 2021 with normal sinus rhythm but frequent PVCs and a burden of 11.6%. Overall many risk factors for coronary disease and history of frequent PVCs. We will recheck echocardiogram for any PVC induced cardiomyopathy. Holter monitor to assess PVC burden. Home sleep study. For blood pressure, on amlodipine, lisinopril, chlorthalidone, metoprolol. Seems reasonable. Diabetes seems poorly controlled as hemoglobin A1c is 10.2%. She is on metformin. Suspect she is going to need other medications too. Follow-up after testing. Orders: Orders RT home sleep study Today G47.33 - Obstructive sleep apnea (adult) (pediatric) ECG 3 day holter monitor Today I49.3 - Ventricular premature depolarization CA echo transthoracic complete Today I49.3 - Ventricular premature depolarization Coding Level of Care Code Est Pt Level 4 (45515) Diagnoses PVC (premature ventricular contraction) I49.3 Diastolic dysfunction I51.89 Essential hypertension I10 Type 2 diabetes mellitus with unspecified complications E11.8 CPT Codes EKG - CPT: 48424-[id number], Complete ([id number])
== END 2024-06-02 10:11 | disposition home or self-care (01) ==
PROVIDERS: PCP Internal Medicine; Visit Provider Internal Medicine
DX: I49.3 Ventricular premature depolarization (principal); I51.89 Other ill-defined heart diseases; I10 Essential (primary) hypertension; E11.8 Type 2 diabetes mellitus with unspecified complications
CPT/HCPCS: 93010; 99214

== ENCOUNTER → 2024-06-02 09:41 | Outpatient (BNVA) | payer OTHER, SELFPAY | PROVIDERS: PCP Internal Medicine; Visit Provider Internal Medicine | DX: I49.3 Ventricular premature depolarization (principal); I11.0 Hypertensive heart disease with heart failure; I51.89 Other ill-defined heart diseases; E11.8 Type 2 diabetes mellitus with unspecified complications; R94.31 Abnormal electrocardiogram [ECG] [EKG]; I51.7 Cardiomegaly | CPT/HCPCS: 93005; 99212 ==

== ENCOUNTER 2024-06-18 10:51 | Outpatient (REF) | payer OTHER, SELFPAY ==
--- NOTE | ~2024-06-18 | US_ITS ---
EXAMINATION: US RETROPERITONEAL LIMITED (RENAL ONLY) CLINICAL INFORMATION: Proteinuria. COMPARISON: None available. TECHNIQUE: Real-time imaging of the kidneys. FINDINGS: RIGHT KIDNEY: 11.1 x 5.6 x 6.3 cm (SAG x AP x TRV). The kidney is normal in size, contour, and echogenicity. Renal cortical thickness is normal. No calculi or focal parenchymal lesions. No hydronephrosis. LEFT KIDNEY: 11.0 x 5.6 x 5.1 cm (SAG x AP x TRV). The kidney is normal in size, contour, and echogenicity. Renal cortical thickness is normal. No calculi or focal parenchymal lesions. No hydronephrosis. ADDITIONAL FINDINGS: Incidental note made of an echogenic liver consistent with hepatic steatosis. US/US renal BI IMPRESSION: 1. Normal-appearing kidneys. 2. Incidentally noted hepatic steatosis. Electronically signed by: Troy Vines MD 08/15/2024 10:51 PM MEJIA
== END 2024-06-18 10:52 | disposition home or self-care (01) ==
LOC: HO.US 10:51
PROVIDERS: PCP Internal Medicine; Visit Provider Internal Medicine Hypertension Specialist
DX: R80.9 Proteinuria, unspecified (principal); E11.40 Type 2 diabetes mellitus with diabetic neuropathy, unspecified
CPT/HCPCS: 76775

== ENCOUNTER → 2024-07-13 09:45 | Outpatient (REF) | payer OTHER, SELFPAY ==
--- NOTE | 2024-07-13 09:48 | HM_ITS ---
Conclusion: 1. Patient was monitored for total period of 2 days and 23 hours 2. Baseline was normal sinus rhythm with average heart of 85 beats per minute 3. No significant pauses noted 4. Frequent PVCs noted with total burden of 2.8%, mostly isolated 5. No patient reported events MTDD
== END ==
LOC: HO.CARD 09:45
PROVIDERS: PCP Internal Medicine; Visit Provider Internal Medicine
DX: I49.3 Ventricular premature depolarization (principal)
CPT/HCPCS: 93242

== ENCOUNTER → 2024-07-13 09:48 | Outpatient (BNV) | payer OTHER, SELFPAY | PROVIDERS: PCP Internal Medicine; Visit Provider Internal Medicine Cardiovascular Disease | DX: I49.3 Ventricular premature depolarization (principal) | CPT/HCPCS: 93244 ==

== ENCOUNTER 2024-08-26 11:07 | Outpatient (AMB) | payer OTHER, SELFPAY ==
[2024-08-26 11:27] VITALS: BP 138/84; PULSE 79; O2SAT 99; BMI 38.9
--- NOTE | 2024-08-26 11:27 | HO.NEPHOV_ITS ---
Vital Signs 08/26/24 11:27 Height 5 ft 1 in Weight 206 lb 2 oz BMI 38.9 BP 138/84 Blood Pressure Location Lt brachial Position Sitting Pulse 79 Pulse Source Pulse Oximeter Pulse Oximetry (%) 99 Oxygen Delivery Method Room Air Intake Visit Reasons: F/U appt/ LVM Tobacco Sample Puller Required: No Accompanied by: Self / Same As Patient Allergies shellfish derived [SHELLFISH DERIVED] Allergy (Severe, Verified 08/26/24 11:30) ANAPHALAXIS Iodinated Contrast Media [IODINATED CONTRAST MEDIA - IV DYE] Allergy (Unknown, Verified 08/26/24 11:30) CAN NOT HAVE DUE TO SHELLFISH ALLERGY Medication List - Last Reconciled 08/26/24 by Nacho Rivas MD amlodipine 5 mg PO BID blood sugar diagnostic (FreeStyle Lite Strips) As directed twice a day chlorthalidone 25 mg PO DAILY levothyroxine 137 mcg PO DAILY 30 days lisinopril 40 mg PO DAILY metformin 1,000 mg PO BID metoprolol tartrate 100 mg PO BID omeprazole 40 mg PO DAILY PRN Do you need a note to return to daycare/school/sports/work: No HPI Comments Details: Pt is a 53 y/o female with a medical history of CKD stage 3a, proteinuria, uncontrolled DMII, HTN, RLS, GERD, hypercholesterolemia, morbid obesity, hx of cholecystectomy. Some diastolic dysfunction 2/2 HTN per cardiology in 2021 based on echo. She was referred by her PCP Dr Banuelos for proteinuria. History of ongoing proteinuria since at least 2018, DMII longstanding microalbumin to creatinine ratio 1404 in January, she has been elevated since at least 2018 (at that time ratio was 1596) reports she recently lost 25lbs by losing more vegetables, cut down on rice to once weekly as well but still could improve, bread is my weakness. no shortness of breath no chest pain denies urinary symptoms- no burning, frequency, urgency, nocturia, blood in urine or flank pain. She underwent renal ultrasonogram which was reportedly normal [facility] Medical History Type 2 diabetes mellitus with diabetic neuropathy, unspecified Hypothyroidism Vitamin D deficiency HLD (hyperlipidemia) HTN (hypertension) T2DM (type 2 diabetes mellitus) Surgical History History of cholecystectomy Hx of section Family History Father Hypertension Heart disease Mother Breast cancer Social History Alcohol intake: former Patient Tobacco Use Status: Never used Tobacco Physical Exam Vital Signs: Last Vital Signs Pulse 79 08/26/24 11:27 BP 138/84 08/26/24 11:27 Pulse Ox 99 08/26/24 11:27 Oxygen Delivery Method Room Air 08/26/24 11:27 BMI result Body Mass Index 38.9 Comfortable Neck supple no JVD. Lungs entry equal no rales. Heart S1-S2 heard no gallop or rub. Abdomen soft nontender. Neuro alert awake oriented. No asterixis. Extremities no edema. Results Reviewed Results Reviewed: June 24. US/US renal BI IMPRESSION: 1. Normal-appearing kidneys. 2. Incidentally noted hepatic steatosis. Nephrology Results: Hgb 12.4 g/dl (12.0-16.0) 05/31/24 WBC 6.3 X10*3/uL (4.8-10.8) 05/31/24 Plt Count 264 X10*3/uL (160-400) 05/31/24 Sodium 137 mmol/L (135-145) 05/31/24 Potassium 4.5 mmol/L (3.3-5.1) 05/31/24 Chloride 104 mmol/L (96-108) 05/31/24 Carbon Dioxide 25 mmol/L (22-29) 05/31/24 BUN 14 mg/dL (9-16) 05/31/24 Creatinine 1.38 mg/dL (0.5-1.4) 05/31/24 Calcium 10.1 mg/dL (8.4-10.2) 05/31/24 Urine Creatinine 46.21 mg/dL 05/31/24 Renal US 06/18/24 Assessment & Plan Assessment & Plan (1) Type 2 diabetes mellitus with diabetic neuropathy, unspecified: Code(s): E11.40 - Type 2 diabetes mellitus with diabetic neuropathy, unspecified Category: Medical Qualifiers: Diabetes mellitus termite control servicer insulin use: without residential use Qualified Code(s): E11.40 - Type 2 diabetes mellitus with diabetic neuropathy, unspecified (2) Proteinuria: Code(s): R80.9 - Proteinuria, unspecified Category: Medical Qualifiers: Proteinuria type: persistent Qualified Code(s): R80.1 - Persistent proteinuria, unspecified (3) CKD (chronic kidney disease): Code(s): N18.9 - Chronic kidney disease, unspecified Category: Medical Plan 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 Differential would include FSGS from obesity. Serological workup for nondiabetic causes are unremarkable Mild bump in serum creatinine after increasing chlorthalidone. I will decrease chlorthalidone down to 12.5 mg every day. Recheck renal function in next few weeks. She would benefit from SGLT2 inhibitors, would recommend starting this for renal protection and improved diabetic control advised reduce salt in diet continue to work on additional weight loss continue to work on improving blood sugar control Orders: Orders Basic Metabolic Panel 3 Months N18.9 - Chronic kidney disease, unspecified UA and rflx microscopic 3 Months N18.9 - Chronic kidney disease, unspecified Phospholipase A2 Receptor Pnl 3 Months N18.9 - Chronic kidney disease, unspecified Complement C3 3 Months N18.9 - Chronic kidney disease, unspecified Complement C4 3 Months N18.9 - Chronic kidney disease, unspecified Medications: Changed From chlorthalidone 25 mg PO DAILY To chlorthalidone 12.5 mg PO DAILY Coding Level of Care Code Est Pt Level 4 (53189) Diagnoses Type 2 diabetes mellitus with diabetic neuropathy, without long-term current use of insulin E11.40 Diabetes mellitus residential insulin use: without residential use Persistent proteinuria R80.1 Proteinuria type: persistent CKD (chronic kidney disease) N18.9
== END 2024-08-26 11:40 | disposition home or self-care (01) ==
PROVIDERS: PCP Internal Medicine; Visit Provider Internal Medicine Hypertension Specialist
DX: E11.40 Type 2 diabetes mellitus with diabetic neuropathy, unspecified (principal); E11.22 Type 2 diabetes mellitus with diabetic chronic kidney disease; N18.9 Chronic kidney disease, unspecified; R80.1 Persistent proteinuria, unspecified
CPT/HCPCS: 99214

== ENCOUNTER → 2024-08-26 11:07 | Outpatient (BNVA) | payer OTHER, SELFPAY | PROVIDERS: PCP Internal Medicine; Visit Provider Internal Medicine Hypertension Specialist | DX: I12.9 Hypertensive chronic kidney disease with stage 1 through stage 4 chronic kidney disease, or unspecified chronic kidney disease (principal); E11.22 Type 2 diabetes mellitus with diabetic chronic kidney disease; E11.40 Type 2 diabetes mellitus with diabetic neuropathy, unspecified; N18.31 Chronic kidney disease, stage 3a; R80.1 Persistent proteinuria, unspecified | CPT/HCPCS: 99212 ==

== ENCOUNTER 2024-09-15 21:17 | Emergency (ER) | payer OTHER, SELFPAY ==
[2024-09-15] VITALS (25 sets, daily range): BP systolic 54–179; BP diastolic 34–110; PULSE 77–122; RESP 1–34; TEMP 35.8–36.3; O2SAT 65–97; BMI 39.6
--- NOTE | ~2024-09-15 | XR_ITS ---
CLINICAL HISTORY: line placement Chest X-ray, 1 View COMPARISON: CR - XR CHEST 1V - 09/15/24 22:21 EST FINDINGS: Similar diffuse right lung airspace disease with right lower lung consolidation. No pleural effusion. No pneumothorax. Stable heart size. No acute fracture. Endotracheal tube in place with tip 3.1 cm above the sarah. Enteric tube in place with tip projecting below the diaphragm beyond the [id number]. Dual-lumen right internal jugular central line in place with tip projecting over the right atrium. IMPRESSION: Similar right lung airspace disease and right lower lung consolidation. Support devices as above. This document has been electronically signed by: Diallo Davis MD on 09/15/2024 23:53:40
--- NOTE | ~2024-09-15 | XR_ITS ---
CLINICAL HISTORY: Intubation Chest X-ray, 1 View COMPARISON: CR - CHEST 2 VIEWS [id number] - 08/27/15 01:32 EST FINDINGS: Diffuse right lung airspace disease. No pleural effusion. No pneumothorax. No cardiomegaly. No acute fracture. Endotracheal tube in place with tip in the right mainstem bronchus. Enteric tube in place, with tip projecting below the diaphragm beyond the [id number]. IMPRESSION: Right mainstem bronchus intubation. Recommend ETT retraction approximately 5 cm. Right lung airspace disease, which could be due to pulmonary edema or pneumonia. This document has been electronically signed by: Diallo Davis MD on 09/15/2024 22:12:02
--- NOTE | ~2024-09-15 | XR_ITS ---
CLINICAL HISTORY: Confirmation of ET tube Chest X-ray, 1 View COMPARISON: CR - XR CHEST 1V - 09/15/24 21:40 EST FINDINGS: Diffuse right lung airspace disease with similar area of consolidation in the right lower lung. No pleural effusion. No pneumothorax. No cardiomegaly. No acute fracture. Endotracheal tube in place with tip 2.1 cm above the sarah, repositioned since the prior study. Enteric tube in place, with tip projecting below the diaphragm beyond the [id number]. IMPRESSION: Right lung airspace disease with similar right lower lung consolidation, which could be due to pneumonia. Support devices as above. This document has been electronically signed by: Diallo Davis MD on 09/15/2024 22:52:32
[2024-09-15 21:42] LABS: Glucose, Whole Blood 205 mg/dL (60-115)
[2024-09-15 21:48] LABS: ABG Base Excess -18.7 mmol/L; ABG HCO3 14 mmol/L (22-26); ABG pCO2 67 mmHg (32-45); ABG pH 6.93 (7.35-7.45); ABG pO2 74 mmHg (83-108)
[2024-09-15] MEDS: Etomidate 20 MG/10 ML VIAL IVPUSH (21:59)
[2024-09-15] MEDS: Rocuronium Bromide 50 MG/5 ML VIAL IVPUSH (21:59)
[2024-09-15] MEDS: 0.9 % Sodium Chloride 1,000 ML 999 ML IVCONT (22:00)
[2024-09-15] MEDS: Piperacillin Sodium/Tazobactam 4.5 GM in 0.9 % Sodium Chloride 100 ML IV (22:03)
[2024-09-15] MEDS: vancomycin/NS 2,000 MG/500 ML PLAST..BAG 250 MG IV (22:03)
[2024-09-15 22:04] LABS: VBG Base Excess -17.3 mmol/L; VBG HCO3 16 mmol/L (22-26); VBG O2 % Saturation < 30.0 %; VBG pCO2 71 mmHg; VBG pO2 28 mmHg
[2024-09-15 22:04] LABS: Venous Blood Gas Refer to POC result
[2024-09-15 22:05] LABS: VBG pH 6.95 (7.32-7.43)
--- NOTE | 2024-09-15 22:05 | PHA.MEDREC ---
Pharmacy Consult ? Medication Reconciliation Pharmacy has completed the medication reconciliation. Obtained from pt's claim history, unable to confirm if taking chlorthalidone 12.5 mg
[2024-09-15 22:07] LABS: Prothrombin Time 11.1 SEC (10.9-12.4)
[2024-09-15 22:10] LABS: Basophils Absolute Auto 0.1 X10*3/uL (0.0-0.2); Basophils Percent Auto 0.3 % (0-2); Eosinophils Percent Auto 0.1 % (0-4); Hematocrit 48.6 % (37.0-47.0); Hemoglobin 14.8 g/dl (12.0-16.0); Imm Gran Abs Auto 0.39 X10*3/uL (0.00-0.03); Lymphocytes Percent Auto 52.9 % (20-40); MANUAL DIFF FLAG SCAN; Mean Corpuscular HGB Conc 30.5 g/dl (31.0-35.0); Mean Corpuscular Hemoglobin 26.5 pg (27.0-33.0); Mean Corpuscular Volume 86.9 fL (80.0-98.0); Mean Platelet Volume 10.8 fL (9.4-12.3); Monocytes Absolute Auto 1.6 X10*3/uL (0.1-1.2); Monocytes Percent Auto 8.5 % (2-11); NRBC Pct Auto 0.4 /100WBC (0.0-0.2); Neutrophils Absolute Auto 6.9 x10*3/uL (2.0-8.3); Neutrophils Percent Auto 36.2 % (45-73); Platelet Count 378 X10*3/uL (160-400); Red Blood Count 5.59 X10*6/uL (4.20-5.50); Red Cell Distribution Width 14.2 % (11.0-16.0); SCAN SMEAR FLAG 1
--- NOTE | 2024-09-15 22:15 | PC.NURSE ---
please see code sheet, xray completed for tube placement, medicated per mar. pt currently on 400 tidal volume, 20 resp, 15 off peep, 100% . pt keep de-stating, respiratory at the bedside managing airway.
[2024-09-15 22:28] LABS: Lymphocytes Absolute Auto 10.1 X10*3/uL (1.2-4.9)
[2024-09-15 22:30] LABS: Ethanol < 10 mg/dL
[2024-09-15 22:31] LABS: Troponin-I High Sensitivity 24.5 ng/L (<3.5-17.0)
[2024-09-15 22:33] LABS: SLIDE REVIEW VERIFIED
[2024-09-15] MEDS: Norepinephrine Bitartrate/D5W 8 MG/250 ML PLAST..BAG 9.2 MG IVCONT (22:35)
[2024-09-15 22:36] LABS: Alanine Aminotransferase 47 U/L (0-31); Albumin Level 3.8 g/dL (3.5-5.0); Alkaline Phosphatase 100 U/L (39-117); Anion Gap 18 (12-20); Aspartate Amino Transferase 56 U/L (5-31); Bilirubin Direct 0.1 mg/dL (0.0-0.5); Bilirubin Total 0.6 mg/dL (0.0-1.0); Blood Urea Nitrogen 21 mg/dL (9-16); Calcium 9.6 mg/dL (8.4-10.2); Carbon Dioxide 18 mmol/L (22-29); Chloride 105 mmol/L (96-108); Creatinine Clr Calc Pharmacy 47.6; Estimated Glomerular Filt Rate 36; Glucose Random 300 mg/dL (60-115); Lipase 57 U/L (8-78); Magnesium 2.3 mg/dL (1.6-2.6); Potassium 2.9 mmol/L (3.3-5.1); Sodium 138 mmol/L (135-145); Total Protein 9.1 g/dL (6.5-8.0)
[2024-09-15] MEDS: propofoL 1,000 MG/100 ML VIAL 17.66 MG IVCONT (22:38)
[2024-09-15 22:45] LABS: TSH reflex Free T4 39.14 uIU/mL (0.32-4.0)
--- NOTE | 2024-09-15 22:53 | PC.NURSE ---
central line being placed at the bedside, 1 amp of calcium chloride, 1 am of sodium Bicarb
[2024-09-15] MEDS: Tenecteplase 50 MG/10 ML KIT IVPUSH (23:07)
[2024-09-15] MEDS: propofoL 200 MG/20 ML VIAL 100 MG IVPUSH (23:11)
--- NOTE | 2024-09-15 23:14 | W.PM.CCHP ---
Procedures Date of Service Date of Service: 09/15/24 Central Line Placement Right IJ: Central Line Comments: Emergent central line required after cardiac arrest. Consent for Procedure: Emergent-no informed consent obtained Time out performed: Yes Sterile Technique Used: Yes Patient placed on monitor/pulse ox: Yes MD prep: mask, gown and gloves Central line prep: Povidone-Iodine 1% Local anesthesia used: other anesthetic (on prop) Ultrasound used for placement: Yes Central line lumen inserted: triple Post procedure: sutured in place, good blood return, all ports aspirated, flushed, capped and sterile dressing applied Post procedure x-ray: tip of catheter in good position and no pneumothorax seen Patient tolerated procedure: well and no complications Complications: none
[2024-09-15] MEDS: Midazolam HCl/NS 50 MG/50 ML PLAST..BAG IVCONT (23:15)
[2024-09-15 23:18] LABS: B Type Natriuretic Peptide 246 pg/mL (<100)
[2024-09-15] MEDS: Rocuronium Bromide 50 MG/5 ML VIAL 100 MG IVPUSH (23:18)
[2024-09-15] MEDS: Calcium Chloride 1 GM/10 ML SYRINGE IVPUSH (23:18)
--- NOTE | 2024-09-15 23:18 | PC.NURSE ---
Provider at the bedside with respiratory, pt manually being bag by respiratory
[2024-09-15 23:19] LABS: Free T4 (Free Thyroxine) 1.04 ng/dL (0.71-1.85)
--- NOTE | 2024-09-15 23:55 | PC.NURSE ---
pt de-stating, began to manual ventilations.
[2024-09-16] VITALS (8 sets, daily range): BP systolic 95–128; BP diastolic 25–78; PULSE 89–92; RESP 3–128; TEMP 36.6–36.7; O2SAT 86–96
[2024-09-16 00:05] LABS: Reflex Lactate? Lactic Acid Added
--- NOTE | 2024-09-16 00:08 | ED_ITS ---
HPI - CPR General Chief Complaint: Cardiac Arrest/CPR Stated Complaint: difficulty breathing Time Seen by Provider: 09/15/24 21:52 Source: family Mode of arrival: wheelchair Limitations: other History of Present Illness ED Provider: Dr. Amena Neff HPI narrative: Patient comes to the emergency room via private vehicle. According to the patient's mother, they had just gotten out of latter day, got today a residency. Patient started complaining of severe short of breath, the patient's mother helped her into the car and arrived to the ED. On arrival to the emergency room, seems that patient was able to get into the wheelchair from the car. When she got into registration, patient vomited and lost consciousness and pulse. Related Data Home Medications ?Medication ?Instructions ?Recorded ?Confirmed metoprolol tartrate 100 mg tablet 100 mg PO BID 09/14/20 09/15/24 amlodipine 5 mg tablet 5 mg PO BID 01/30/21 09/15/24 metformin 500 mg tablet 1,000 mg PO BID 06/20/22 09/15/24 chlorthalidone 25 mg tablet 12.5 mg PO DAILY 08/26/24 08/26/24 dulaglutide 1.5 mg/0.5 mL 1.5 mg subcut Q7D 09/15/24 09/15/24 [facility] Previous Rx's ?Medication ?Instructions ?Recorded lisinopril 40 mg tablet 40 mg PO DAILY #90 tabs 10/11/20 levothyroxine 137 mcg tablet 137 mcg PO DAILY 30 days #30 tabs 11/05/21 blood sugar diagnostic (FreeStyle #50 ea 12/18/21 Lite Strips) Allergies Allergy/AdvReac Type Severity Reaction Status Date / Time shellfish derived Allergy Severe ANAPHALAXIS Verified 09/15/24 21:56 [SHELLFISH DERIVED] Iodinated Contrast Media Allergy Unknown CAN NOT Verified 09/15/24 21:56 [IODINATED CONTRAST MEDIA - HAVE DUE IV DYE] TO SHELLFISH ALLERGY Review of Systems 2 Review of Systems: Per family, patient complained of severe shortness of breath prior to arrival to the emergency room. Yes unobtainable due to endotracheal tube and Unobtainable due to mental condition PMFSH Past Medical History Medical History Type 2 diabetes mellitus with diabetic neuropathy, unspecified Hypothyroidism Vitamin D deficiency HLD (hyperlipidemia) HTN (hypertension) T2DM (type 2 diabetes mellitus) Surgical History History of cholecystectomy Hx of section Family History Family History Father Hypertension Heart disease Mother Breast cancer Social History Social History Alcohol intake: former Patient Tobacco Use Status: Never used Tobacco Advance Directives: No Advance Directives Information Provided: Yes Do you have a plan to hurt others: No Plan Physical Exam 2 Vital Signs: Vital Signs: Last Vital Signs Temp 98.1 F 09/16/24 00:41 Pulse 92 09/16/24 00:41 Resp 128 H 09/16/24 00:41 BP 128/78 09/16/24 00:41 Pulse Ox 93 09/16/24 00:41 O2 Del Method Ambu-Bag 09/16/24 00:41 FiO2 100 09/16/24 00:06 BMI result Body Mass Index 39.6 Const: Other: Appearance: Unresponsive Eyes: Pupils equal, round and reactive to light. ENT: Pharynx normal. Neck: Normal inspection. Neck supple. No lymph nodes noted. No crepitus CVS: No pulse, CPR in progress Respiratory: In acute respiratory failure, intubated Abdomen: Soft , distended Skin: Cold and mottled Extremities: No obvious injuries, no edema Neuro: Unresponsive Psych: Unresponsive Course Course Course Narrative: When patient was in cardiac arrest, patient was intubated without any medication. After 4 minutes of CPR, patient regained ROSC, strong pulse. Stable blood pressure Patient started waking up: Patient was giving etomidate and rocuronium to paralyze the patient, fighting the vent, started on propofol Patient in critical condition, intubated, central line in place. According to the patient's family, patient recently had a stress test for which they do not have the results. Patient has no known history of asthma, COPD or CHF Medications Administered Generic Name Dose Route Start Last Admin Trade Name Freq PRN Reason Stop Dose Admin Propofol 1,000 mg in 100 mls @ 0 mls/hr 09/15/24 22:00 09/15/24 22:38 Diprivan IVCONT 30 mcg/kg/min .Q0M MILO 17.66 mls/hr Administration Protocol Per Protocol Norepinephrine Bitartrate 8 mg in 250 mls @ 0 mls/hr 09/15/24 22:00 09/15/24 22:41 Levophed IVCONT 0.07 mcg/kg/min .Q0M MILO 12.88 mls/hr Titration Protocol Per Protocol Midazolam HCl 50 mg in 50 mls @ 2 mls/hr 09/15/24 23:15 09/15/24 23:15 Versed IVCONT 2 mg/hr .Q24H MILO 2 mls/hr Administration 2 MG/HR Sodium Bicarbonate 150 meq/ 1,000 mls @ 100 mls/hr 09/16/24 00:45 09/16/24 01:04 Dextrose IV 100 mls/hr .Q10H MILO Administration Discontinued Medications Generic Name Dose Route Start Last Admin Trade Name Freq PRN Reason Stop Dose Admin Calcium Chloride 1 gm 09/15/24 22:47 09/15/24 23:18 Calcium Chloride 1 Gm/10 Ml Syringe IVPUSH 09/15/24 22:48 1 gm STAT STA Administration Etomidate 20 mg 09/15/24 21:53 09/15/24 21:59 Etomidate 20 Mg/10 Ml Vial IVPUSH 09/15/24 21:54 20 mg NOW STA Administration Sodium Chloride 1,000 mls @ 999 mls/hr 09/15/24 21:54 09/16/24 01:29 Ns IVCONT 09/15/24 22:54 Infused .Q1H1M ONE Infusion Vancomycin HCl 2,000 mg in 500 mls @ 250 mls/hr 09/15/24 21:55 09/15/24 22:03 Vancomycin/Ns IV 09/15/24 23:54 250 mls/hr ONCE ONE Administration Piperacillin Sod/Tazobactam 100 mls @ 200 mls/hr 09/15/24 21:55 09/16/24 01:29 Sod 4.5 gm/ Sodium Chloride IV 09/15/24 22:24 Infused ONCE ONE Infusion Potassium Chloride 40 meq in 100 mls @ 100 mls/hr 09/15/24 23:25 09/16/24 00:39 Potassium Chloride/H20 IV 09/16/24 00:24 100 mls/hr ONCE ONE Administration Sodium Chloride 1,000 mls @ 999 mls/hr 09/16/24 00:24 09/16/24 01:10 Ns IVCONT 09/16/24 01:24 Not Given .Q1H1M ONE Propofol 100 mg 09/15/24 21:52 09/15/24 23:11 Propofol 200 Mg/20 Ml Vial IVPUSH 09/15/24 21:53 100 mg ONCE ONE Administration Rocuronium [place] 50 mg 09/15/24 21:53 09/15/24 21:59 Rocuronium [place] 50 Mg/5 Ml Vial IVPUSH 09/15/24 21:54 50 mg ONCE ONE Administration Rocuronium [place] 100 mg 09/15/24 23:04 09/15/24 23:18 Rocuronium [place] 50 Mg/5 Ml Vial IVPUSH 09/15/24 23:05 100 mg ONCE ONE Administration Tenecteplase 50 mg 09/15/24 22:45 09/15/24 23:07 Tenecteplase 50 Mg/10 Ml Kit IVPUSH 09/15/24 22:46 50 mg ONCE ONE Administration Medical Decision Making Medical Decision Making MDM Narrative: When patient was brought to the main ED immediately. CPR started and intubated. Before we attempted intubation, there was a very large amount of vomit in the patient's airway and frothy sputum. According to the patient's mother, she did not have any tonic-clonic movement to suspect seizure Once intubated, it was very difficult to oxygenate the patient. We were able to ventilate without any problem but the oxygen would increase. After 15-20 minutes of Ambu ventilation, patient eventually reach an oxygen saturation of 92%. However, every time that we tried to switch the patient to the event machine, her oxygen with dropped to the 70s. We tried AC/VC, AC/VC plus which seems to work the best, we tried AC/PC which was worse. Also, the respiratory therapist tried to imitative ventilatory settings, same as the Ambu bag ventilation. However, the patient did not respond well. Oxygen saturation remained in the low 80s high 70s. We know that the patient has right lower lobe pneumonia likely from aspiration. After faliling all ventilatory settings, we rotated the patient on her left lateral side. Seems that she was able to tolerate the vent a bit better. However, after a few minutes her oxygen dropped again to the 70s. The only way that we can keep a constant saturation for the patient is with the Ambu bag ventilation. It is unlikely that patient has severe hypoxia is secondary to just pneumonia. Patient is too unstable to go to the CT scan, prophylactically we treated for pulmonary embolism, patient was given TNK Patient has already received IV fluids, vancomycin, Zofran. Patient is currently on propofol which dropped the blood pressure, patient now also on Levophed. I discussed the patient with our machine i trimmer Dr. Odom, we are running out of options, is likely that the patient will need ECMO. There is a possibility that this might be massive saddle embolism. Patient would require care at a tertiary level of care hospital I discussed the patient with Dr. Allen, pt accepted to [facility] ICU, given the patient's current condition, patient will have to be life flighted Patient's mother and patient's son have been informed of the situation. Agreeable to have the patient transferred. Differential Diagnosis Differential Diagnoses: The differential diagnosis associated with the presentation includes (Flash pulmonary edema, pneumonia, pulmonary embolism) Admission/Observation Consideration of admission/observation: Escalation of care including admission/observation considered Consult Healthcare Provider Management of the patient was discussed with: Treating Plant Supervisor Lab Data MDM Lab Attestation statement: I reviewed the patient's lab results. 09/15/24 21:54 09/15/24 21:35 Labs: Lab Results 09/15/24 09/15/24 09/15/24 Range/Units 21:35 21:37 21:44 WBC (4.8-10.8) X10*3/uL RBC (4.20-5.50) X10*6/uL Hgb (12.0-16.0) g/dl Hct (37.0-47.0) % MCV (80.0-98.0) fL MCH (27.0-33.0) pg MCHC (31.0-35.0) g/dl RDW (11.0-16.0) % Plt Count (160-400) X10*3/uL MPV (9.4-12.3) fL Immature Gran % (Auto) (0.0-0.4) % Neut % (Auto) (45-73) % Lymph % (Auto) (20-40) % Bee % (Auto) (2-11) % Eos % (Auto) (0-4) % Baso % (Auto) (0-2) % Lymph # (Auto) (1.2-4.9) X10*3/uL Bee # (Auto) (0.1-1.2) X10*3/uL Eos # (Auto) (0.0-0.4) X10*3/uL Baso # (Auto) (0.0-0.2) X10*3/uL Abs Immat Gran (auto) (0.00-0.03) X10*3/uL Absolute Neuts (auto) (2.0-8.3) x10*3/uL Absolute Nucleated RBC (0.0-0.012) X10*3/uL Nucleated RBC % (auto) (0.0-0.2) /100WBC Smear Tech's Comments PT 11.1 (10.9-12.4) SEC INR 1.0 (0.9-1.1) O2 Saturation 78.0 % ABG pH at Pt Temp 6.93 L* (7.35-7.45) ABG pCO2 at Pt Temp 67 H* (32-45) mmHg ABG pO2 at Pt Temp 74 L (83-108) mmHg ABG HCO3 14 L (22-26) mmol/L ABG Base Excess (Actual) -18.7 mmol/L VBG pH 6.95 L* (7.32-7.43) VBG pCO2 71 mmHg VBG pO2 28 mmHg VBG HCO3 16 L (22-26) mmol/L VBG O2 Saturation < 30.0 % VBG Base Excess -17.3 mmol/L Sodium 138 (135-145) mmol/L Potassium 2.9 L* D (3.3-5.1) mmol/L Chloride 105 (96-108) mmol/L Carbon Dioxide 18 L (22-29) mmol/L Anion Gap 18 (12-20) BUN 21 H (9-16) mg/dL Creatinine 1.51 H (0.5-1.4) mg/dL Estim Creat Clear Calc 47.6 Estimated GFR 36 POC Glucose 205 H (60-115) mg/dL Random Glucose 300 H (60-115) mg/dL Lactic Acid 10.5 H* (0.5-2.0) mmol/L Calcium 9.6 (8.4-10.2) mg/dL Magnesium 2.3 (1.6-2.6) mg/dL Total Bilirubin 0.6 (0.0-1.0) mg/dL Direct Bilirubin 0.1 (0.0-0.5) mg/dL AST 56 H (5-31) U/L ALT 47 H (0-31) U/L Alkaline Phosphatase 100 (39-117) U/L Ammonia (13-55) umol/L Troponin I High Sens 24.5 H (<3.5-17.0) ng/L B-Natriuretic Peptide (<100) pg/mL Total Protein 9.1 H (6.5-8.0) g/dL Albumin 3.8 (3.5-5.0) g/dL Lipase 57 (8-78) U/L TSH 39.14 H (0.32-4.0) uIU/mL Free T4 1.04 (0.71-1.85) ng/dL Hold Yellow Top See Note Urine Color Urine Appearance Urine pH (5.0-9.0) Ur Specific [place] (1.005-1.025) Urine Protein (Neg-Trace) mg/dL Urine Glucose (UA) (Negative) mg/dL Urine Ketones (Negative) mg/dL Urine Blood (Negative) Urine Nitrite (Negative) Ur Leukocyte Esterase (Negative) Urine RBC (0-2) /HPF Urine WBC (0-5) /HPF Ur Squamous Epith Cells (0-2) /HPF Urine Bacteria (None Seen) Hyaline Casts (0-2) /LPF Urine Opiates Screen (Not Detect) Ur Buprenorphine Scrn (Not Detect) ng/mL Ur Oxycodone Screen (Not Detect) ng/mL Urine Methadone Screen (Not Detect) ng/mL Urine Fentanyl Screen (Not Detect) Ur Barbiturates Screen (Not Detect) Ur Phencyclidine Scrn (Not Detect) Ur Amphetamines Screen (Not Detect) U Benzodiazepines Scrn (Not Detect) Urine Cocaine Screen (Not Detect) U Marijuana (THC) Screen (Not Detect) Ethyl Alcohol < 10 mg/dL Influenza Type A (PCR) (Negative) Influenza Type B (PCR) (Negative) RSV RNA Qual (PCR) (Negative) SARS-CoV-2 RNA (RT-PCR) (Negative) 09/15/24 09/15/24 09/16/24 Range/Units 21:54 23:26 00:11 WBC 19.0 H (4.8-10.8) X10*3/uL RBC 5.59 H D (4.20-5.50) X10*6/uL Hgb 14.8 (12.0-16.0) g/dl Hct 48.6 H D (37.0-47.0) % MCV 86.9 (80.0-98.0) fL MCH 26.5 L (27.0-33.0) pg MCHC 30.5 L (31.0-35.0) g/dl RDW 14.2 (11.0-16.0) % Plt Count 378 D (160-400) X10*3/uL MPV 10.8 (9.4-12.3) fL Immature Gran % (Auto) 2.0 H (0.0-0.4) % Neut % (Auto) 36.2 L (45-73) % Lymph % (Auto) 52.9 H (20-40) % Bee % (Auto) 8.5 (2-11) % Eos % (Auto) 0.1 (0-4) % Baso % (Auto) 0.3 (0-2) % Lymph # (Auto) 10.1 H (1.2-4.9) X10*3/uL Bee # (Auto) 1.6 H (0.1-1.2) X10*3/uL Eos # (Auto) 0.0 (0.0-0.4) X10*3/uL Baso # (Auto) 0.1 (0.0-0.2) X10*3/uL Abs Immat Gran (auto) 0.39 H (0.00-0.03) X10*3/uL Absolute Neuts (auto) 6.9 (2.0-8.3) x10*3/uL Absolute Nucleated RBC 0.080 H (0.0-0.012) X10*3/uL Nucleated RBC % (auto) 0.4 H (0.0-0.2) /100WBC Smear Tech's Comments VERIFIED PT (10.9-12.4) SEC INR (0.9-1.1) O2 Saturation % ABG pH at Pt Temp (7.35-7.45) ABG pCO2 at Pt Temp (32-45) mmHg ABG pO2 at Pt Temp (83-108) mmHg ABG HCO3 (22-26) mmol/L ABG Base Excess (Actual) mmol/L VBG pH (7.32-7.43) VBG pCO2 mmHg VBG pO2 mmHg VBG HCO3 (22-26) mmol/L VBG O2 Saturation % VBG Base Excess mmol/L Sodium (135-145) mmol/L Potassium (3.3-5.1) mmol/L Chloride (96-108) mmol/L Carbon Dioxide (22-29) mmol/L Anion Gap (12-20) BUN (9-16) mg/dL Creatinine (0.5-1.4) mg/dL Estim Creat Clear Calc Estimated GFR POC Glucose (60-115) mg/dL Random Glucose (60-115) mg/dL Lactic Acid (0.5-2.0) mmol/L Calcium (8.4-10.2) mg/dL Magnesium (1.6-2.6) mg/dL Total Bilirubin (0.0-1.0) mg/dL Direct Bilirubin (0.0-0.5) mg/dL AST (5-31) U/L ALT (0-31) U/L Alkaline Phosphatase (39-117) U/L Ammonia 86 H (13-55) umol/L Troponin I High Sens (<3.5-17.0) ng/L B-Natriuretic Peptide 246 H (<100) pg/mL Total Protein (6.5-8.0) g/dL Albumin (3.5-5.0) g/dL Lipase (8-78) U/L TSH (0.32-4.0) uIU/mL Free T4 (0.71-1.85) ng/dL Hold Yellow Top Urine Color Yellow Urine Appearance Cloudy Urine pH 6.0 (5.0-9.0) Ur Specific [place] 1.015 (1.005-1.025) Urine Protein 300 (3+) H (Neg-Trace) mg/dL Urine Glucose (UA) 250 H (Negative) mg/dL Urine Ketones Negative (Negative) mg/dL Urine Blood Small (1+) H (Negative) Urine Nitrite Negative (Negative) Ur Leukocyte Esterase Small (1+) H (Negative) Urine RBC 0-2 (0-2) /HPF Urine WBC >50 H (0-5) /HPF Ur Squamous Epith Cells 11-20 (0-2) /HPF Urine Bacteria 4+ (None Seen) Hyaline Casts 3-5 (0-2) /LPF Urine Opiates Screen Not Detected (Not Detect) Ur Buprenorphine Scrn Not Detected (Not Detect) ng/mL Ur Oxycodone Screen Not Detected (Not Detect) ng/mL Urine Methadone Screen Not Detected (Not Detect) ng/mL Urine Fentanyl Screen Not Detected (Not Detect) Ur Barbiturates Screen Not Detected (Not Detect) Ur Phencyclidine Scrn Not Detected (Not Detect) Ur Amphetamines Screen Not Detected (Not Detect) U Benzodiazepines Scrn Not Detected (Not Detect) Urine Cocaine Screen Not Detected (Not Detect) U Marijuana (THC) Screen Not Detected (Not Detect) Ethyl Alcohol mg/dL Influenza Type A (PCR) NEGATIVE (Negative) Influenza Type B (PCR) NEGATIVE (Negative) RSV RNA Qual (PCR) NEGATIVE (Negative) SARS-CoV-2 RNA (RT-PCR) NEGATIVE (Negative) Independent Interpretation I performed an independent interpretation of an: Plain X-Ray Radiology Impression Discussion of test interpretation with radiology: I have reviewed the radiologist's reading. Radiologist Impression: Similar diffuse right lung airspace disease with right lower lung consolidation. No pleural effusion. No pneumothorax. Stable heart size. No acute fracture. Endotracheal tube in place with tip 3.1 cm above the sarah. Enteric tube in place with tip projecting below the diaphragm beyond the [id number]. Dual-lumen right internal jugular central line in place with tip projecting over the right atrium. IMPRESSION: Similar right lung airspace disease and right lower lung consolidation. Support devices as above. Independent Historian Clinical information obtained from an independent historian. History obtained from or confirmed by: Other (Patient's mother) External Record Review External record reviewed: Inpatient record Procedures Central Line Placement Right IJ: Patient Placed on Monitor/Pulse Ox: Yes Prep: mask, gown and gloves Central Line Prep: Povidone-Iodine 1% Ultrasound Used for Placement: Yes Central Line Lumen Inserted: triple Post Procedure: sutured in place, good blood return, all ports aspirated, flushed, capped and sterile dressing applied Post Procedure X-Ray: tip of catheter in good position and no pneumothorax seen Patient Tolerated Procedure: well and no complications Complications: none Intubation Intubation Type:: Endotracheal Tube Insertion Intubation Date:: 09/16/24 sedative: none paralytic: other (During the intubation, we were able to intubate without any medications.) ET Tube Size: 7 ET Tube Uncuffed: No Tube Secured Depth (cm): 22 Tube Secured Location: lips Tube Placement Confirmation: visualized tube passing through cords, equal breath sounds bilaterally, no breath sounds over epigastrium and confirmation by capnometry Patient Tolerated Procedure: well Intubation Complications: none Critical Care Time Critical Care Time Critical Care Time: Yes Total Critical Care Time: 120 Attestation: I have personally provided critical care time. Time includes review of lab data, radiology results, discussion with consultants, and monitoring for potential decompensation. Intervention performed as documented. Discharge Plan Discharge Clinical Impression: Cardiac arrest, Acute hypoxic respiratory failure, Pneumonia, Acute hypokalemia Patient Disposition: [facility] Transfer Details: [facility] ICU, Dr. Allen Prescriptions: No Action levothyroxine 137 mcg tablet 137 mcg PO DAILY 30 Days Qty: 30 3RF lisinopril 40 mg tablet 40 mg PO DAILY Qty: 90 0RF Trulicity 1.5 mg/0.5 mL pen injector 1.5 mg subcut Q7D metoprolol tartrate 100 mg tablet 100 mg PO BID amlodipine 5 mg tablet 5 mg PO BID (DME) FreeStyle Lite Strips Strip See Rx Instructions .ROUTE .MEDSUPPLY Qty: 50 11RF Rx Instructions: As directed twice a day metformin 500 mg tablet 1,000 mg PO BID chlorthalidone 25 mg tablet 12.5 mg PO DAILY Print Language: Citizen [place]
[2024-09-16 00:12] LABS: Influenza A PCR NEGATIVE (Negative); Influenza B PCR NEGATIVE (Negative); Resp Syncy Virus RNA Qual PCR NEGATIVE (Negative); SARS COV2 PCR INHOUSE NEGATIVE (Negative)
[2024-09-16 00:18] LABS: Appearance Urine Cloudy; Color Urine Yellow; Glucose Urine UA 250 mg/dL (Negative); Leukocyte Esterase Urine Small (1+) (Negative); Nitrite Urine Negative (Negative); Specific Gravity - Urine 1.015 (1.005-1.025); UMIC TRIGGER UACC YES; Urine Blood Small (1+) (Negative); Urine Ketones Negative (Negative); Urine Protein 300 (3+) mg/dL (Neg-Trace)
[2024-09-16 00:29] LABS: Amphetamine Screen Urine Not Detected (Not Detect); Barbiturates, Urine Not Detected (Not Detect); Benzodiazepines Screen Urine Not Detected (Not Detect); Buprenorphine Scr Not Detected (Not Detect); Cannabinoid Screen Urine Not Detected (Not Detect); Cocaine Screen Urine Not Detected (Not Detect); Fentanyl, urine Not Detected (Not Detect); Methadone Screen, Urine Not Detected (Not Detect); Opiate Screen Urine Not Detected (Not Detect); Oxycodone Screen Urine Not Detected (Not Detect); Phencyclidine Screen Urine Not Detected (Not Detect)
[2024-09-16 00:34] LABS: Bacteria Urine 4+ (None Seen); RBC Urine 0-2 /HPF (0-2); UACC Culture Trigger YES; WBC Urine >50 /HPF (0-5)
[2024-09-16] MEDS: Potassium Chloride/H20 40 MEQ/100 ML PIGGYBACK 100 MEQ IV (00:39)
[2024-09-16 00:46] LABS: Ammonia 86 umol/L (13-55)
[2024-09-16] MEDS: Sodium Bicarbonate 8.4% 150 MEQ in Dextrose 5 % 850 ML 100 MEQ IV (01:04)
--- NOTE | 2024-09-16 01:04 | PC.NURSE ---
bicab drip mixed and hang
--- NOTE | 2024-09-16 01:06 | PC.NURSE ---
report given to [facility], and care transfered
--- NOTE | 2024-09-16 01:27 | PC.NURSE ---
Pt transferred to [facility] [place] with [facility], report given to ICU at [facility] [place] Jerad Rowley
--- NOTE | 2024-09-16 01:33 | PC.NURSE ---
prior to pt being flighted out, temperature sensor castelan placed, ua collected and sent.
--- NOTE | 2024-09-16 07:43 | ECG_ITS ---
Test Reason : Cardiac arrest Blood Pressure : */* mmHG Vent. Rate : 123 BPM Atrial Rate : 123 BPM P-R Int : 138 ms QRS Dur : 150 ms QT Int : 342 ms P-R-T Axes : 54 9 179 degrees QTcB Int : 489 ms Sinus tachycardia Possible Left atrial enlargement Left bundle branch block Abnormal ECG When compared with ECG of 26-Aug-2015 23:31, Vent. rate has increased by 42 bpm Left bundle branch block is now Present Referred By: Amena Neff Electronically Signed By: Eliot Orlando
[2024-09-18 07:13] LABS: Lactic Acid 10.5 mmol/L (0.5-2.0)
== END 2024-09-16 02:32 | disposition short-term general hospital (02) ==
PROVIDERS: Emergency Provider Emergency Medicine; PCP Internal Medicine
DX: I46.9 Cardiac arrest, cause unspecified (principal); J96.01 Acute respiratory failure with hypoxia; J18.9 Pneumonia, unspecified organism; E87.6 Hypokalemia; E11.9 Type 2 diabetes mellitus without complications; I10 Essential (primary) hypertension; Z03.818 Encounter for observation for suspected exposure to other biological agents ruled out; Z51.81 Encounter for therapeutic drug level monitoring; Z79.899 Other long term (current) drug therapy; Z79.84 Long term (current) use of oral hypoglycemic drugs
CPT/HCPCS: 0241U; 31500; 36415; 36556; 51701; 71045; 80048; 80076; 80307; 81001; 82140; 82803; 82947; 83605; 83690; 83735; 83880; 84439; 84443; 84484; 85025; 85610; 87040; 87086; 93005; 94002; 96365; 96366; 96367; 96368; 96375; 96376; 99285; 99291; 99292; J0171; J2251; J2543; J2704; J3101; J3370; J3480

== ENCOUNTER → 2024-09-15 21:45 | Outpatient (BNV) | payer OTHER, SELFPAY | PROVIDERS: Emergency Provider Emergency Medicine; PCP Internal Medicine; Visit Provider Radiology Diagnostic Radiology | DX: R91.8 Other nonspecific abnormal finding of lung field (principal) | CPT/HCPCS: 71045 ==

== ENCOUNTER → 2024-09-15 21:59 | Outpatient (BNV) | payer OTHER, SELFPAY | PROVIDERS: Emergency Provider Emergency Medicine; PCP Internal Medicine; Visit Provider Registered Nurse Community Health | DX: I46.9 Cardiac arrest, cause unspecified (principal) | CPT/HCPCS: 36556 ==

== ENCOUNTER → 2024-09-16 07:43 | Outpatient (BNV) | payer OTHER, SELFPAY | PROVIDERS: Emergency Provider Emergency Medicine; PCP Internal Medicine; Visit Provider Internal Medicine Cardiovascular Disease | DX: R94.31 Abnormal electrocardiogram [ECG] [EKG] (principal) | CPT/HCPCS: 93010 ==

== ENCOUNTER 2024-10-11 11:33 | Outpatient (REF) | payer OTHER, SELFPAY ==
[2024-10-11 12:47] LABS: MANUAL DIFF FLAG NO
[2024-10-11 12:54] LABS: Appearance Urine Cloudy; Color Urine Yellow; Glucose Urine UA Negative (Negative); Leukocyte Esterase Urine Trace (Negative); Nitrite Urine Negative (Negative); PH 5.5 (5.0-9.0); Specific Gravity - Urine 1.015 (1.005-1.025); UMIC TRIGGER UA YES; Urine Blood Negative (Negative); Urine Ketones Negative (Negative); Urine Protein 300 (3+) mg/dL (Neg-Trace)
--- OUTSIDE RECORDS SUMMARY | 2024-10-11 12:55 | XMS_ITS | Continuity of Care Document ---
Author Organization [facility] ter Address [address] [place] [id number] Care Team Providers Care Obstetrics Teacher Name Role Phone Verenice FONSECA, Naman Primary Care Physician Encounter [facility] Date(s): 09/16/24 - 09/29/[address] [address]- Encounter Diagnosis Cardiomyopathy(Discharge Diagnosis) - 09/18/24 Discharge Disposition: A-D/C Home Attending Physician: Kirk Hernandez MD Admitting Physician: Víctor Medrano MD Referring Physician: Not on Staff, Referring MD Encounter Type: Disch IP Allergies, Adverse Reactions, Alerts Substance Criticality Severity Reaction Reaction Severity Status shellfish Active Medications amLODIPine 5 mg oral tablet TAKE 1 TABLET BY MOUTH TWICE A DAY Start Date: 09/16/24 Status: Ordered Repeat number: 1 aspirin 81 mg oral delayed release tablet 81 mg, By Mouth, Daily, # 30 tablet, Refills 0, Tot. Refills 0, Maintenance, 09/29/24 1:13:00 PM EST, Route to Pharmacy Electronically, [facility], Partial fill upon patient request if the prescription is for a schedule II opioid drug., 158, cm, 09/29/24 1:28:00 EST, Height, 98, kg, 09/16/24 2:10:00 EST, Dry Weight Start Date: 09/29/24 Status: Ordered Quantity: 30.0 Unit: tablet Repeat number: 1 atorvastatin 40 mg oral tablet = 40 mg, By Mouth, Daily at bedtime, # 30 tablet, 0 Refills, Maintenance, 09/29/24 1:13:00 PM EST, Tablet, [facility], Partial fill upon patient request if the prescription is for a schedule II opioid drug., 158, cm, 09/29/24 1:28:00 EST, Height, 98, kg, 09/16/24 2:10:00 EST, Dry Weight Start Date: 09/29/24 Status: Ordered Quantity: 30.0 Unit: tablet Repeat number: 1 Coreg 6.25 mg oral tablet 6.25 mg, 1, tablet, By Mouth, 2 times a day, # 60 tablet, Refills 0, Tot. Refills 0, Maintenance, 09/29/24 1:15:00 PM EST, Route to Pharmacy Electronically, [facility], Partial fill uponpatient request if the prescription is for a schedule II opioid drug., 158, cm, 09/29/24 1:28:00 EST, Height, 98, kg, 09/16/24 2:10:00 EST, Dry Weight Start Date: 09/29/24 Status: Ordered Quantity: 60.0 Unit: tablet Repeat number: 1 famotidine 20 mg oral tablet 20 mg, By Mouth, Daily at bedtime, # 30 tablet, Refills 0, Tot. Refills 0, Maintenance, 09/29/24 1:13:00 PM EST, Route to Pharmacy Electronically, [facility], Partial fill upon patient request if the prescription is for a schedule II opioid drug., 158, cm, 09/29/24 1:28:00 EST, Height,98, kg, 09/16/24 2:10:00 EST, Dry Weight Start Date: 09/29/24 Status: Ordered Quantity: 30.0 Unit: tablet Repeat number: 1 levothyroxine 0.137 mg oral tablet 1 tablet = 137 mcg, By Mouth, Daily, # 30 tablet, 0 Refills, Maintenance, 09/29/24 6:17:00 PM EST, Tablet, [id number], Partial fill upon patient request if the prescription is for a schedule II opioid drug., 158, cm, 09/29/24 1:28:00 EST, Height, 98, kg, 09/16/24 2:10:00 EST, Dry Weight Start Date: 09/29/24 Stop Date: 10/29/24 Status: Ordered Quantity: 30.0 Unit: tablet Repeat number: 1 levothyroxine 0.137 mg oral tablet TAKE 1 TABLET BY MOUTH EVERY DAY Start Date: 09/16/24 Status: Ordered Repeat number: 1 sodium bicarbonate 650 mg oral tablet = 650 mg, By Mouth, 2 times a day, for 30 days, # 60 tablet, 0 Refills, Acute 10/29/24 1:13:00 PM EST, 09/29/24 1:13:00 PM EST, Tablet, [facility], Partial fill upon patient request if the prescription is for a schedule II opioid drug., 158, cm, 09/29/24 1:28:00 EST, Height, 98, kg, 09/16/24 2:10:00 EST, Dry Weight Start Date: 09/29/24 Stop Date: 10/29/24 Status: Ordered Quantity: 60.0 Unit: tablet Repeat number: 1 Trulicity Pen 1.5 mg/0.5 mL subcutaneous solution INJECT 1 PEN SUBCUTANEOUSLY ONCE A WEEK Start Date: 09/16/24 Status: Ordered Repeat number: 1 Problem List Condition Confirmation Course Effective Dates Status Health St atus Informant Severe obesity Confirmed Active Diagnosis Diagnosis Type Effective Dates Health Status Cl inical Service Informant Cardiomyopathy Discharge Diagnosis 09/18/24 Results Radiology Reports * Exam Date Time Procedure Performing Provider Status 09/18/24 3:04 PM US Doppler Ext Lower Venous Bilat Leslee Mix; Auth (Verified) Notes: (US Doppler Ext Lower Venous Bilat) Reason For Exam: hypoxic, initial c/f PE, r/o DVT;Other: RESULT: US Doppler Ext Lower Venous Bilat US Doppler Ext Lower Venous Bilat Reason: Hypoxia, initial c f PE, r o DVT; Clinical Question(s): Thrombosis COMPARISON: None IMAGING TECHNIQUE: Streamlined portable ultrasound of the lower extremity deep venous system was performed using grayscale, color, and spectral Doppler ultrasound from the common femoral through the popliteal vein assessing for complete compressibility and good response to compression and augmentation. The calf veins are not assessed. FINDINGS: RIGHT LOWER EXTREMITY: Common femoral vein: Patent. No thrombosis. Femoral vein: Patent. No thrombosis. Popliteal vein: Patent. No thrombosis. LEFT LOWER EXTREMITY: Common femoral vein: Patent. No thrombosis. Femoral vein: Patent. No thrombosis. Popliteal vein: Patent. No thrombosis. OTHER FINDINGS: None. IMPRESSION: No evidence of deep venous thrombosis from the groin through the popliteal vein. Calf veins not assessed with portable technique. WSN: [id number] Ordering Physician: Nikolai Helton Dictated By: Alek Jackson MD Dictated Date/Time: 09/18/24 3:19 pm Reviewed By: Alek Jackson MD Signed By: Alek Jackson MD Signed Date/Time: 09/18/24 3:19 pm Transcribed By: CHRIS Transcribed Date/Time: 09/18/24 3:18 pm * Exam Date Time Procedure Performing Provider Status 09/16/24 10:[address] Head/Brain W/O Contrast Dolly Pitt llfrances; Auth (Verified) Notes: (CT Head/Brain W/O Contrast) Reason For Exam: cardiac arrest;Other: RESULT: CT Head/Brain W/O Contrast CT Head/Brain W/O Contrast INDICATION: Reason: Other:; cardiac arrest; Clinical Question(s): Anoxic Ischemic Encephalopathy; Order Comment: TECHNIQUE: Noncontrast head CT using axial technique and reconstructed in axial and coronal planes.Iterative reconstruction techniques are used to optimize dose and image quality. CTDIvol Head: 45.80 mGy, DLP Head: 773 mGy*cm. COMPARISON: None. FINDINGS: Hydrogeologist view findings, lines and tubes: None. BRAIN AND EXTRA-AXIAL SPACES: No parenchymal hemorrhage, midline shift, or mass effect. Brown-white matter differentiation is wellpreserved. No acute infarct. Ventricles, sulci, and basilar cisterns are normal. No white matter lesions. No subarachnoid hemorrhage. No subdural or epidural collection. CALVARIUM, SKULL BASE, AND SOFT TISSUES: No fractures or suspicious bony lesions. The paranasal sinuses and mastoid air cells are clear. Visualized orbits and globes are intact. The extracranial soft tissues are unremarkable. IMPRESSION: No acute intracranial pathology. WSN: [id number] Ordering Physician: Brad Ramos Dictated By: Bob Cruz MD Dictated Date/Time: 09/16/24 10:46 a Reviewed By: Bob Cruz MD Signed By: Bob Cruz MD Signed Date/Time: 09/16/24 10:46 am Transcribed By: CHRIS Transcribed Date/Time: 09/16/24 10:43 am * Exam Date Time Procedure Performing Provider Status 09/16/24 10:[address] Chest W/O Contrast Noa Pitt ; Auth (Verified) Notes: (CT Chest W/O Contrast) Reason For Exam: Other: RESULT: CT Chest W/O Contrast CT Chest W/O Contrast INDICATION: Reason: Other:; Clinical Question(s): Other:; hypoxemia TECHNIQUE: Helical CT scan of the chest without IV contrast, formatted in 3 planes. Weight-based protocol was performed using automatic exposure control. CTDIvol Body: 15.10 mGy, DLP Body: 505 mGy*cm. COMPARISON: None. FINDINGS: Hydrogeologist view findings, lines and tubes: Endotracheal tube terminates above the sarah. Vascular access catheter tip is in the area of the cavoatrial junction. There is an enteric tube with the tip extending to the stomach. On the printing gray cloth tender image the distal tip is seen at the level of the distal gastric body. Trachea and airways: Proximal tracheal bronchial tree is patent. Expiratory appearance. Lungs and pleura: Lower lung consolidative opacities as well as atelectasis with bilateral [id number] volume effusions. There is also mild lower lung interlobular septal thickening. No pneumothorax. Mediastinum and arpita: No mass or hematoma. Enlarged mediastinal lymph nodes, right precarinal up to1.6 cm, for example. No esophageal abnormality. Thyroid gland is not seen Heart: Francisco heart size. Trace volume of pericardial fluid. Mild coronary artery calcification. Aorta: Mild vascular calcification but no aneurysm. Pulmonary arteries: Nonenlarged main pulmonary artery. Chest wall soft tissues: No axillary adenopathy. Mild edema. Diaphragm: Intact. Upper abdomen: No acute abnormality. Hepatic steatosis. Bones: No acute or destructive osseous abnormality. IMPRESSION: Bilateral lower lung opacities are concerning for infection or aspiration. There is concomitant pulmonary edema with pleural effusions, interlobular septal thickening, and basilar atelectasis. Enlarged right precarinal lymph node could be reactive. WSN: [id number] Ordering Physician: Rene Borrego Dictated By: Breana Mcdaniel MD Dictated Date/Time: 09/16/24 10:51 a Reviewed By: Breana Mcdaniel MD Signed By: Breana Mcdaniel MD Signed Date/Time: 09/16/24 10:51 am Transcribed By: CHRIS Transcribed Date/Time: 09/16/24 10:35 am * Exam Date Time Procedure Performing Provider Status 09/16/24 3:32 AM Chest Portable Bryce De Paz; Auth (V erified) Notes: (Chest Portable) Reason For Exam: Line Placement RESULT: Chest Portable Chest Portable Reason: Line Placement; Clinical Question(s): Line Placement COMPARISON: None. FINDINGS: LINES AND TUBES: Endotracheal tube tip 2.5 cm above the sarah. Enteric tube tip below the diaphragm, outside the field of view at the bottom of the image Right IJ central venous catheter in place with tip in the region of the right atrium in good position. LUNGS AND PLEURA: Ill-defined diffuse air space opacities in the right lower lung, no definite focal consolidation. Left retrocardiac opacity. Normal pulmonary vascularity. No pleural effusion. No pneumothorax. HEART, MEDIASTINUM AND ARPITA: Heart is normal in size. Aorta is mildly calcified. BONES AND SOFT TISSUES: No acute abnormality. IMPRESSION: Support lines and tubes in appropriate position. Mild diffuse airspace opacities in the right lower lung, may be atelectasis and/or early infiltrateprocess. Left retrocardiac opacity consistent with left lower lobe atelectasis and/or infiltrates and/or a small left pleural effusion. Correlation with a chest CT is advised. I have personally reviewed the images and I agree with this report. WSN: [id number] Ordering Physician: Brad Ramos Dictated By: Jessica Álvarez DO Dictated Date/Time: 09/16/24 8:41 am Reviewed By: Krzysztof Lackey MD, V Signed By: Krzysztof Lackey MD, V Signed Date/Time: 09/16/24 8:46 am Transcribed By: CHRIS Transcribed Date/Time: 09/16/24 8:24 am Vital Signs Most recent to oldest [Reference Range]: 1 2 3 Height 158 cm (09/29/24 1:28 AM) 158 cm (09/28/24 8:40 PM) 158 cm (09/28/24 3:28 PM) Weight 97.3 kg (09/17/24 4:00 AM) 100.2 kg (09/16/24 2:10 AM) Oxygen Saturation [94-100 %] 100 % (09/29/24 1:00 PM) 99 % (09/29/24 7:00 AM) 100 % (09/29/24 1:28 AM) Pulse Rate [55-90 bpm] 71 bpm (09/29/24 1:00 PM) 96 bpm *H* (09/29/24 7:00 AM) 92 bpm *H* (09/29/24 1: AM) Body Mass Index [18.5-24.99 kg/m2] 40.14 kg/m2 *>HHI* (09/16/24 2:10 AM) Blood Pressure [90-138/55-84 mm Hg] 129/80mm Hg (09/29/24 1:00 PM) 132/78mm Hg (09/29/24 7:00 AM) 124/65mm Hg (09/29/24 1:28 AM) Respiratory Rate [16-30 br/min] 16 br/min (09/29/24 1:00 PM) 20 br/min (09/29/24 7:00 AM) 16 br/min (09/29/24 1: AM) Temperature [96.8-100.4 DegF] 97.9 DegF (09/29/24 1:00 PM) 98.7 DegF (09/29/24 7:00 AM) 97.9 DegF (09/29/24 1: AM) Liters per Minute 2 L/min (09/20/24 7:27 AM) 2 L/min (09/19/24 8:25 PM) 1 L/min (09/19/24 1:00 PM) Mode of Delivery (Oxygen) Room air (09/29/24 1:00 PM) Room air (09/29/24 7:00 AM) Room air (09/29/24 1:28 AM) Blood pressure sites Arm, right (09/29/24 1:00 PM) Arm, right (09/29/24 7:00 AM) Arm, right (09/29/24 1:28 AM) Temperature Route Oral (09/29/24 1:00 PM) Oral (09/29/24 7:00 AM) Oral (09/29/24 1:28 AM) Dry Weight 98 kg (09/16/24 2:10 AM) Weight Obtained Via Bed scale (09/17/24 4:00 AM) Bed scale (09/16/24 2:10 AM) Dry Weight Obtained Via Bed scale (09/16/24 2:10 AM) Social History Social History Type Response Smoking Status Never smoker entered on: 05/17/14 Sex Sex Representation Female (finding) Note * Mary FONSECA, Kirk Johnson: PERFORM, MODIFY, MODIFY Event Display: Discharge/Transfer Note Hospital Authored Date: [id number] Patient: ??MARLI HANNA ? Age:??53 Years?Sex:??Female?:??1970?? Patient Information Discharge Location: S1 Primary Care Physician: Naman Caldera MD Admit Date/Time: 09/16/2024 01:56 Discharge Disposition Discharge Disposition: ?? Discharge Diagnosis ?? PNA (pneumonia) (J18.9) Cardiac arrest with pulseless electrical activity (I46.9) Acute hypoxemic respiratory failure (J96.01) ABELARDO (acute kidney injury) (N17.9) Heart failure with reduced ejection fraction (I50.20) Hypertension (I10) Hyperlipidemia (E78.5) Type 2 diabetes mellitus (E11.9) Normocytic hypochromic anemia (D50.9) _ Discharge Medications Amlodipine (amLODIPine 5 mg oral tablet)?TAKE 1 TABLET BY MOUTH TWICE A DAY Aspirin (aspirin 81 mg oral delayed release tablet)?81?Milligram?By Mouth?Daily Atorvastatin (atorvastatin 40 mg oral tablet)?40?Milligram?By Mouth?Daily at bedtime Carvedilol (Coreg 6.25 mg oral tablet)?6.25?Milligram?1?tablet?By Mouth?2 times aday dulaglutide (Trulicity Pen 1.5 mg/0.5 mL subcutaneous solution)?INJECT 1 PEN SUBCUTANEOUSLY ONCEA WEEK Famotidine (famotidine 20 mg oral tablet)?20?Milligram?By Mouth?Daily at bedtime Levothyroxine (levothyroxine 0.137 mg oral tablet)?TAKE 1 TABLET BY MOUTH EVERY DAY sodium bicarbonate (sodium bicarbonate 650 mg oral tablet)?650?Milligram?By Mouth?2 times a day?for 30?Days ? Medications Started sodium bicarbonate, aspirin, statins, famotidine, carvedilol Medications Discontinued metformin, metoprolol, lisinopril Doses Changed none Allergies Allergies ?(Active and Proposed Allergies Only) shellfish? (Severity: Unknown severity, Onset: Unknown) ? PCP Follow-Up/Heads-Up PCP f/u in 1 week to rpt BMP. Future Appointments Friday 9:15 AM EST ?? With: Alivia ROSE, Julissa Garcia Where: [facility] [address] [place], [place] [id number]- Status: Pending Hospital Course ??53yoF with pmhx??T2DM with neuropathy, hypothyroidism,??hypertension, hyperlipidemia, vitamin D deficiency who was initially transferred 09/15 from?? s/p cardiac arrest and septic shock requiring intubation??to MICU with course complicated by pneumonia, pulmonary edema, abelardo,??and new cardiomyopathy. Patient extubated 09/17, with resolution of shock and weaned to NC oxygen support, now stable for transfer for acute floor.? On evaluation, patient reports that she remembers suddenly feeling like she was falling prior to her arrest. She denied chest pain, shortness of breath, lightheadedness, dizziness, or abdominal discomfort. She remembers expressing I feel like i'm going to to someone around her and asked for EMS to be called. Now, she feels better and is thankful that she is alive. She notes some chest discomfort from the cpr which is reproducible. ?? Per Admission note, patient received CPR for 14min with 1x epi before ROSC. At ,??labs notable for??leukocytosis 19,??hypokalemia 2.9, creatinine 1.51,??hyperglycemia 300,??troponin 24.5, TSH 39.14with free T41.04, mag??2.3, lactate??10.5. ??CXR??notable for??right lung airspace disease with right lower lobe consolidation. ??She was intubated and transferred to [facility] ICU for septic shock s/p cardiac arrest with propofol gtt, levophed gtt, and bicarb gtt. ?? Hospital course??per MICU note:?? PEA at OSH (given TNK) of unclear etiology. Intubated found to have pna, pulm edema, new CMP /w EF25-30%, ABELARDO, shock. low suspicion of PE based on RV eval, negative DVT study, and marked improvement off AC. extubated 09/17, now on 1L LFNC. Urine output increased, likely in polyuric phase of ATN, lytes and acid base stable. remains on ceftriaxone. consulted cardiology today given new CMP, which may be stunning iso recent arrest. HDS, stable for floor /w tele. Objective Assessment and Plan 53yoF with pmhx??T2DM with neuropathy, hypothyroidism,??hypertension, hyperlipidemia, vitamin D deficiency who was initially transferred 09/15 from??HH s/p cardiac arrest and septic shock requiring intubation??to MICU with course complicated by pneumonia, pulmonary edema, abelardo,??and new cardiomyopathy. Patient extubated 09/17, with resolution of shock and weaned to NC oxygen support, now stable for transfer for acute floor. Patient currently pending??Improvement of renal function, wean off oxygen support, further investigation and management of new cardiomyopathy, and overall clinical improvement. ?? Acute hypoxemic respiratory failure (J96.01) - improved Pulmonary edema (J81.1) - resolved S/p extubation s/p completed ceftriaxone Pt likely with undiagnosed FRANCISCO, would benefit from sleep study outpatient ?? ABELARDO (acute kidney injury) (N17.9) Cr??baseline is 1.63,??improving, rpt BMP in 1 week by pcp Hold??lasix for now. ?? Renal recs - renal function is stable and improving - no indication for renal replacement therapy?? -??continue??sodium bicarb 650 mg TID ?? Heart failure with reduced ejection fraction (I50.20) S/p Cardiac arrest with pulseless electrical activity (I46.9) Cardiomyopathy (I42.9) Hypertension (I10) Hyperlipidemia (E78.5) Echo with EF 20-25% with LBBB on EKG without known cardiac history Concern for chronic undiagnosed heart failure vs depressed EF post cardiac arrest S/p PEA arrest where pt was given??TNK. RV size is normal. US LE venous doppler neg for DVT.? Cardiology recs ??? ASA 81mg Po daily?? -Lipitor 40mg PO Daily?? -start coreg 3.125mg Po BID, increase to 6.25mg PO BID if tolerated.? ACEI/ARB once Cr improves - likely outpatient?? -Will arrange FU in 4 weeks -No clinical HF on exam cath and cardiac MRI outpt. likely needs zio patch after discharge s/p stress test??09/23 positive for fixed ischemia and hypokinesia?---cardiology on board for further plan??outpatient cardiac cath once creatinine stable. ?? NM Stress test Summary ??1. Myocardial perfusion imaging is abnormal after Regadenoson stress test.There is a medium sizedmoderate intensity mostly fixed defect of the mid- inferior, basal inferior haq and apical inferior haq likely representing scar/artifact. ??2. LV function is abnormal with diffuse hypokinesis and an E.F. of 25 % at rest and 26% with stress. ? Normocytic hypochromic anemia (D50.9):?? H/H stable No signs of acute blood loss at this time. Consider reactive in acute process.? Type 2 diabetes mellitus (E11.9):??- Continue home meds ?? Hypothyroidism (E03.9) Continue home levothyroxine 137mcg ??cortisol wnl ?? Pt is clinically and hemodynamically stable and better at discharge. ?? Vital Signs?? Temperature: 98.7 DegF (09/29/24 07:00:00) Temperature Route: Oral (09/29/24 07:00:00) Pulse Rate:??96 bpm??High (09/29/24 07:00:00) Respiratory Rate: 20 br/min (09/29/24 07:00:00) Systolic Blood Pressure: 132 mm Hg (09/29/24 07:00:00) Diastolic Blood Pressure: 78 mm Hg (09/29/24 07:00:00) Blood pressure sites: Arm, right (09/29/24 07:00:00) Mean Arterial Pressure: 85 mm Hg (09/29/24 01:28:00) Pulse Pressure: 54 mm Hg (09/29/24 07:00:00) Oxygen Saturation: 99 % (09/29/24 07:00:00) Mode of Delivery (Oxygen): Room air (09/29/24 07:00:00) Early Warning Score: 4 (09/29/24 11:26:08) ? . Physical Exam ?General: Awake, not in??distress, obese?Head and neck: Atraumatic, no neck swelling ?Eye: no injection or jaundice, EOMI. ?Cardiac: RRR, no murmurs, gallops or rubs, no S3 or S4. ?Pulmonary: Normal breathing sounds bilaterally with good air entry with??no wheezing or??rhonchi ?Abdominal: No tenderness or rebound tenderness, normal BS, no HSM ?Skin: No rashes, jaundice or schritching florentino ?Extremities: No edema, no swelling or varicose veins ?Neuro: awake, alert oriented X3, no focal weakness. ?Psych: Not anxious _ Pending Results Add On Lab Order ordered on 09/23/2024 Basic Metabolic Panel ordered on 2024 Phosphorus Level ordered on 2024 Tot. Lipid Fatty Acid Profile ordered on 09/25/2024 Follow-Up Appointments Added Follow Up ?Time Frame ?Comments [facility] [phone]?1 week Home Health Face to Face *Denotes mandatory licea ?? *I certify that this patient is under my care and that I or an allowed non- physician working with me had a face to face encounter with the patient on this date:??09/29/2024 13:11 ?? *The encounter with the patient was in whole, or in part, for the following medical condition, which is the primary diagnosis(es) for home health care:??Cardiomyopathy (I42.9) Pneumonia of both lungs due to infectious organism, unspecified part of lung (J18.9) PNA (pneumonia) (J18.9) Cardiac arrest with pulseless electrical activity (I46.9) Acute hypoxemic respiratory failure (J96.01) ABELARDO (acute kidney injury) (N17.9) Heart failure with reduced ejection fraction (I50.20) Pulmonary edema (J81.1) Hypertension (I10) Hyperlipidemia (E78.5) Type 2 diabetes mellitus (E11.9) Normocytic hypochromic anemia (D50.9) ?? *Select the indications for the discipline/s that are being arranged for this patient. Nursing (select all that apply): [_] None [x_] Medication management (reconciliation, teaching)?? [_x] Chronic disease management?? [_] Wound care and treatment?? [_x] Home safety evaluation [_] Administer SQ/IM/IV medications?? [_] Cath care?? [_] Drain care?? [_] Trach or GT care?? Other _ Occupation Therapy (select all that apply): [_] None [_] ADL Management [_] Fall prevention training [_] Energy conservation [_] Cognitive training Other _ Physical Therapy (select all that apply): [_] None [_] Functional mobility training [_x] Home exercise program to strengthen [x_] Increase ROM?? [x_] Falls prevention training [_] Home maintenance program for chronic disease Other _ Speech Therapy (select all that apply): [_] None [_] Swallow evaluation and training [_] Speech and language training [_] Cognitive training to process, organize, and/or recall information Other _ ? *Homebound due to (select all that apply): [_] Inability to leave home without assistance/supervision [_] Inability to ambulate without assistance [_] Pain [_x] Decreased strength and endurance [_] Unsteady gait [_] Severe SOB and fatigue [_] Impaired transfers [_] Inability to negotiate stairs [_] Limited weight bearing [_] Mental status change? *Physician Signature: eder hernandez ?? *By signing this, I certify that I have personally evaluated the patient and agree with the findings and recommendations as documented above. ? Results Discharge Labs BACTERIOLOGY MRSA PCR Result Negative, MRSA target DNA not detected. ()?? 09/16/2024 09:38 S Aureus ??PCR Result Positive, SA target DNA detected. (Abnormal)?? 09/16/2024 09:38 Blood Culture Results Final report ()?? 09/16/2024 08:10 Blood Culture Specimen Source BLOOD ()?? 09/16/2024 08:10 Blood Culture Isolate 1 Comment ()?? 09/16/2024 08:10 Sputum Culture Specimen Source ENDOTRACHEAL ASPIRATE ()?? 09/16/2024 11:31 Sputum Cult Epithelial Cells Few ()?? 09/16/2024 11:31 Gram Stain Evaluation Comment ()?? 09/16/2024 11:31 Sputum Gram Stain Result 1 Comment ()?? 09/16/2024 11:31 Sputum Gram Stain Result 2 Comment ()?? 09/16/2024 11:31 Sputum Culture Isolate 1 Comment ()?? 09/16/2024 11:31 White Blood Cells Moderate ()?? 09/16/2024 11:31 Blood Cult 2 Results Final report ()?? 09/16/2024 10:39 Blood Culture 2 Specimen Source BLOOD ()?? 09/16/2024 10:39 Blood Culture 2 Isolate 1 Comment ()?? 09/16/2024 10:39 Sputum Culture Status Final report ()?? 09/16/2024 11:31 ?? BLOOD COUNT & DIFF WBC 5.2 k/mm3 ()?? 09/29/2024 07:00 RBC 3.70 m/mm3 (Low)?? 09/29/2024 07:00 Hgb 9.7 Gm/dL (Low)?? 09/29/2024 07:00 Hct 30.3 % (Low)?? 09/29/2024 07:00 MCV 81.9 femtoliters ()?? 09/29/2024 07:00 MCH 26.2 pg (Low)?? 09/29/2024 07:00 MCHC 32.0 Gm/dL (Low)?? 09/29/2024 07:00 Platelet Count 334 k/mm3 ()?? 09/29/2024 07:00 RDW-SD 44.6 femtoliters ()?? 09/29/2024 07:00 MPV 9.2 femtoliters (Low)?? 09/29/2024 07:00 Nucleated RBC (Automated) 0.0 #/100 WBC'S ()?? 09/29/2024 07:00 Abs. NRBC 0.0 k/mm3 ()?? 09/29/2024 07:00 Abs. Neut 6.3 k/mm3 ()?? 09/16/2024 03:19 Abs. Lymph 1.4 k/mm3 ()?? 09/16/2024 03:19 Abs. Pecos 0.7 k/mm3 ()?? 09/16/2024 03:19 Abs. Eo 0.0 k/mm3 ()?? 09/16/2024 03:19 Abs. Baso 0.0 k/mm3 ()?? 09/16/2024 03:19 Neut % 74.1 % ()?? 09/16/2024 03:19 Lymph % 16.6 % ()?? 09/16/2024 03:19 Pecos % 8.1 % ()?? 09/16/2024 03:19 Eos % 0.0 % ()?? 09/16/2024 03:19 Baso % 0.1 % ()?? 09/16/2024 03:19 Hemoglobin (POC) POC Cartridge 12.6 Gm/dL ()?? 09/16/2024 02:49 Hematocrit (POC) POC Cartridge 37 % ()?? 09/16/2024 02:49 Imm Gran 1.1 % ()?? 09/16/2024 03:19 Abs. Imm Gran 0.1 k/mm3 ()?? 09/16/2024 03:19 ?? BLOOD GAS pH (POC) POC Cartridge 7.31 (Low)?? 09/16/2024 02:49 pCO2 (POC) POC Cartridge 40.2 mm Hg ()?? 09/16/2024 02:49 pO2 (POC) POC Cartridge 93 mm Hg ()?? 09/16/2024 02:49 Estimated Bicarbonate (POC) POC Cart 20.2 mmol/L (Low)?? 09/16/2024 02:49 % O2 Sat Arterial (POC) POC Cartridge 96 % ()?? 09/16/2024 02:49 pCO2 Venous (POC) POC Cartridge 42.3 mm Hg ()?? 09/17/2024 12:20 pO2 Venous (POC) POC Cartridge 39 mm Hg ()?? 09/17/2024 12:20 Estimated Bicarbonate Luan (POC) POC Cart 21 mmol/L (Low)?? 09/17/2024 12:20 % O2 Sat Venous (POC) POC Cartridge 67 ()?? 09/17/2024 12:20 Base Excess (POC) POC Cartridge NEGATIVE 6 ()?? 09/16/2024 02:49 pH 7.32 (Low)?? 09/17/2024 11:58 pCO2 35 mm Hg (Low)?? 09/17/2024 11:58 pO2 81 mm Hg ()?? 09/17/2024 11:58 Bicarbonate, Estimated 17 mmol/L (Low)?? 09/17/2024 11:58 Specimen Type - Blood Gas ARTERIAL ()?? 09/17/2024 11:58 pH, Venous 7.32 (Low)?? 09/16/2024 11:49 pCO2, Venous 39 mm Hg (Low)?? 09/16/2024 11:49 pO2, Venous 46 mm Hg (High)?? 09/16/2024 11:49 Bicarbonate, Estimated(Venous) 19 mmol/L (Low)?? 09/16/2024 11:49 Percent O2 (FIO2) 50 ()?? 09/17/2024 11:58 ?? CARDIAC Nt-Probnp 1111 pg/mL (High)?? 09/24/2024 09:31 High Sensitivity Troponin (HSTnT) 236 ng/L (Critical)?? 09/16/2024 09:27 ?? CHEM GENERAL Sodium 135 mmol/L ()?? 09/29/2024 07:00 Potassium 5.0 mmol/L ()?? 09/29/2024 07:00 Chloride 103 mmol/L ()?? 09/29/2024 07:00 Bicarbonate Level 15 mmol/L (Low)?? 09/29/2024 07:00 Anion Gap 17 mmol/L ()?? 09/29/2024 07:00 Sodium (POC) POC Cartridge 139 mmol/L ()?? 09/16/2024 02:49 Potassium (POC) POC Cartridge 4.1 mmol/L ()?? 09/16/2024 02:49 Glucose Level 111 mg/dL (High)?? 09/29/2024 07:00 Glucose (POC) POC Cartridge 204 (High)?? 09/16/2024 02:49 Glucose, POC 131 mg/dL (High)?? 09/29/2024 11:15 BUN 69 mg/dL (High)?? 09/29/2024 07:00 Creatinine-Blood 3.89 mg/dL (High)?? 09/29/2024 07:00 Estimated GFR Creatinine 13 ML/MIN/1.73 M2 ()?? 09/29/2024 07:00 Calcium 10.0 mg/dL ()?? 09/29/2024 07:00 Ionized Calcium (POC) POC Cartridge 1.28 mmol/L ()?? 09/16/2024 02:49 Phosphorus 6.0 mg/dL (High)?? 09/29/2024 07:00 Magnesium 1.8 mg/dL ()?? 09/29/2024 07:00 Protein, Total 7.8 Gm/dL ()?? 09/25/2024 07:32 Albumin 3.3 Gm/dL (Low)?? 09/25/2024 07:32 AG Ratio 0.7 ()?? 09/22/2024 07:16 Alkaline Phosphatase 80 units/L ()?? 09/25/2024 07:32 AST (SGOT) 21 units/L ()?? 09/25/2024 07:32 ALT (SGPT) 22 units/L ()?? 09/25/2024 07:32 Bilirubin, Total 0.2 mg/dL ()?? 09/25/2024 07:32 Bilirubin, Direct 0.1 mg/dL ()?? 09/25/2024 07:32 Bilirubin, Indirect 0.1 mg/dL ()?? 09/25/2024 07:32 Lactate 3.3 mmol/L (High)?? 09/16/2024 09:27 ? COAG INR 1.1 ()?? 09/23/2024 07:29 Protime (PT) 11.2 seconds ()?? 09/23/2024 07:29 APTT 23.8 seconds ()?? 09/16/2024 03:19 ? ENDOCRINE/TUMOR MARKER TSH 20.40 uIU/mL (High)?? 09/27/2024 07:20 Free T4 1.22 ng/dL ()?? 09/25/2024 07:32 T3, Free 1.6 pg/mL (Low)?? 09/27/2024 07:20 Cortisol Level 16.5 ??g/dL ()?? 09/23/2024 07:29 ?? HEME OTHER Hold Lavender Top SPECIMEN DISCARDED AFTER 24 HOURS. ()?? 09/20/2024 06:59 ? LIPID STUDIES Cholesterol 260 mg/dL (High)?? 09/27/2024 07:20 Triglycerides 222 mg/dL (High)?? 09/27/2024 07:20 HDL Cholesterol 32 mg/dL (Low)?? 09/27/2024 07:20 LDL Cholesterol 184 mg/dL (High)?? 09/27/2024 07:20 Non HDL Cholesterol 228 mg/dL (High)?? 09/27/2024 07:20 ? MISC. CHEMISTRY Procalcitonin 14.80 ng/mL ()?? 09/16/2024 09:27 ? UA/URINALYSIS Appear/Color, Urine COLORLESS ()?? 09/19/2024 08:50 Specific Republic, Urine <1.005 ()?? 09/19/2024 08:50 pH, Urine 6.5 ()?? 09/19/2024 08:50 Albumin, Urine 1+ (Abnormal)?? 09/19/2024 08:50 Glucose, Urine NEGATIVE ()?? 09/19/2024 08:50 Ketones, Urine NEGATIVE ()?? 09/19/2024 08:50 Bilirubin, Urine NEGATIVE ()?? 09/19/2024 08:50 Hemoglobin, Urine 2+ (Abnormal)?? 09/19/2024 08:50 Nitrite, Urine NEGATIVE ()?? 09/19/2024 08:50 Leukocyte, Urine NEGATIVE ()?? 09/19/2024 08:50 Urobilinogen NORMAL mg/dL ()?? 09/19/2024 08:50 WBC's, Urine 1 /HPF ()?? 09/19/2024 08:50 RBC's, Urine 12 /HPF (High)?? 09/19/2024 08:50 Squamous Epith <1 /HPF ()?? 09/19/2024 08:50 ?? URINE OTHER Creatinine, Urine Random 22.3 mg/dL ()?? 09/16/2024 23:50 Sodium, Urine Random 79 mmol/L ()?? 09/19/2024 08:50 Urea Nitrogen, Urine Random 101.2 mg/dL ()?? 09/16/2024 23:50 Osmolality, Urine Random 246 mOsm/kg ()?? 09/19/2024 08:50 Est Creatinine Clearance 13.51 mL/min ()?? 09/29/2024 07:46 ? VIROLOGY Adenovirus by PCR NEGATIVE ()?? 09/16/2024 23:40 Coronavirus 229E by PCR (not COVID-19) NEGATIVE ()?? 09/16/2024 23:40 Coronavirus HKU1 by PCR (not COVID-19) NEGATIVE ()?? 09/16/2024 23:40 Coronavirus NL63 by PCR (not COVID-19) NEGATIVE ()?? 09/16/2024 23:40 Coronavirus OC43 by PCR (not COVID-19) NEGATIVE ()?? 09/16/2024 23:40 Human Metapneumovirus by PCR NEGATIVE ()?? 09/16/2024 23:40 Rhinovirus/Enterovirus by PCR NEGATIVE ()?? 09/16/2024 23:40 Influenza A by PCR NEGATIVE ()?? 09/16/2024 23:40 Influenza B by PCR NEGATIVE ()?? 09/16/2024 23:40 Parainfluenza 1 by PCR NEGATIVE ()?? 09/16/2024 23:40 Parainfluenza 2 by PCR NEGATIVE ()?? 09/16/2024 23:40 Parainfluenza 3 by PCR NEGATIVE ()?? 09/16/2024 23:40 Parainfluenza 4 by PCR NEGATIVE ()?? 09/16/2024 23:40 RSV by PCR NEGATIVE ()?? 09/16/2024 23:40 Bordetella Pertussis by PCR NEGATIVE ()?? 09/16/2024 23:40 Chlamydophila Pneumoniae by PCR NEGATIVE ()?? 09/16/2024 23:40 Mycoplasma Pneumoniae by PCR NEGATIVE ()?? 09/16/2024 23:40 COVID-19 PCR Specimen Source NASAL ()?? 09/16/2024 03:46 COVID-19 PCR Result NEGATIVE ()?? 09/16/2024 03:46 COVID-19 (SARS-CoV-2) by PCR NEGATIVE ()?? 09/16/2024 23:40 Bordetella Parapertussis by PCR NEGATIVE ()?? 09/16/2024 23:40 ? 25_ minutes spent on discharge * Josue Rosas LPN: PERFORM Event Display: Patient Education/Instruction Authored Date: [id number] Inpatient Adult Discharge Instructions. [place] [id number] Name: MARLI HANNA : 1970?? Visit: 09/16/2024 01:56?? Current Date: 09/29/2024 13:49 ?? Account: [id number]?? Inpatient Adult Discharge Instructions We would like to thank you for allowing us to assist you with your healthcare needs. The following includes patient education materials and information regarding your injury/illness. Our entire staffstrives to provide an excellent experience for our patients and their families. PLEASE ENSURE YOU FOLLOW-UP PER THE INSTRUCTIONS BELOW! ?? YOUR OPINION IS IMPORTANT TO US! Please complete the survey you may receive by mail or email. Your feedback will be used to make improvements to the healthcare experiences of our patients and their families. Surveys are administered by [employer] ?? If further treatment with your primary care physician or another doctor is recommended, it is important for you to keep the appointment. Call your primary care physician or return to the Emergency Department immediately if your condition worsens, fails to improve, or new symptoms develop. If you need to find a doctor, you can call [facility] for a referral at [phone] or toll free at [email or web address] ([phone]) or log in to [email or web address].. ?? [facility], in keeping with [facility] guidance, no longer requires face masks for staff, patientsor visitors in most situations. Similiar to time spent indoors at other locations, there is the chance that you were exposed to repiratory viruses during your time with us (such as flu or COVID-19). If you develop symptoms concerning for a viral respiratory infection, please seek testing (and treatment if indicated) from your medical provider or home test kit. ?? You can view and manage your care through the patient portal or by using a health care tyrell of your choosing. [employer] is a website that allows you to securely view your medical information including your hospital discharge summary, office visit summaries, medications and follow-up visits. You can also request appointments, renew medications, and request access to your medical information using a health care tyrell of your choosing, or just ask a question. You can enroll at [email or web address] or register during your next office visit. You have been discharged from [facility], Patient Care Unit: S1??. If you have any questions regarding these instructions, including results of studies pending, afteryou leave, please call us and we will be happy to assist you 24/03. [facility] Your Care Team Attending Physician Kirk Hernandez MD?? Consulting Providers Kirk Hernandez MD?? Discharging Providers Kirk Hernandez MD Reason for Your Visit cardiac arrest, septic shock?? Your Diagnosis Cardiomyopathy Pneumonia of both lungs due to infectious organism, unspecified part of lung Acute hypoxemic respiratory failure ABELARDO (acute kidney injury) Cardiac arrest with pulseless electrical activity Heart failure with reduced ejection fraction Hyperlipidemia Hypertension Normocytic hypochromic anemia PNA (pneumonia) Pulmonary edema Type 2 diabetes mellitus Tests Performed Below is a partial list of the tests performed during your hospitalization. You may have had other tests and procedures not included in this list. Please discuss all test results with your provider. ABG ABG POC CARTRIDGE BASE EXCESS POC CARTRIDGE Blood Culture Blood Culture #2 Blood Culture 2 Results Blood Culture Result CALCIUM IONIZED POC CART CBC CBC w/ Differential Comprehensive Metabolic Panel Cortisol Level COVID-19 (2019 Novel Coronavirus) PCR Creatinine Urine Culture Sputum w/ Gram Smear EST CO2 VENOUS POC CARTRIDGE Free T3 Free T4 GLUCOSE POC GLUCOSE POC CARTRIDGE HEMATOCRIT POC CARTRIDGE HEMOGLOBIN POC CARTRIDGE HOLD LAVENDER TUBE ISTAT O2SAT Lactate Level Lipid Panel Liver Function Panel Lytes Magnesium Level Mg Level MRSA/MSSA PCR Nasal Swab NT ProBNP Osmolality Urine PCO2 VENOUS POC CARTRIDGE PO2 VENOUS POC CARTRIDGE POTASSIUM POC CARTRIDGE ProBNP Procalcitonin Level PT (INR) PTT Respiratory Pathogen PCR with COVID-19 SODIUM POC CARTRIDGE Sodium Urine Sputum Culture Troponin T, High Sensitivity TSH UA UREA NITROGEN, URINE MG/DL VBG Chest CT W/O Contrast CT Head/Brain W/O Contrast CXR Portable Venous Doppler Ext Lower Bilat (US) ABG (Lab) POC Cartridge (ABG POC CARTRIDGE)?? Add On Lab Order?? B Type Natriuretic Peptide (NT-proBNP) (NT ProBNP)?? Base Excess (Lab) POC Cartridge (BASE EXCESS POC CARTRIDGE)?? Basic Metabolic Panel?? Blood Culture?? Blood Culture #2?? Blood Culture 2 Results?? Blood Culture Result?? Blood Gas Arterial (ABG)?? Blood Gas Venous (VBG)?? CBC?? CBC w/ Differential?? COVID-19 (2019 Novel Coronavirus) PCR?? CT Chest W/O Contrast (Chest CT W/O Contrast)?? CT Head/Brain W/O Contrast?? Complete Urinalysis (UA)?? Comprehensive Metabolic Panel?? Cortisol Level?? Creatinine Urine?? Electrolytes (Lytes)?? Est CO2 Venous (Lab) POC Cartridge (EST CO2 VENOUS POC CARTRIDGE)?? Free T4?? Glucose (Lab) POC Cartridge (GLUCOSE POC CARTRIDGE)?? Glucose POC?? Hematocrit (Lab) POC Cartridge (HEMATOCRIT POC CARTRIDGE)?? Hemoglobin (Lab) POC Cartridge (HEMOGLOBIN POC CARTRIDGE)?? Hepatic Function Panel (Liver Function Panel)?? High??Sensitivity??Troponin T (Troponin T, High Sensitivity)?? Hold Lavender Top Tube (HOLD LAVENDER TUBE)?? INR (PT (INR))?? Ionized Calcium(POC) POC Cartridge (CALCIUM IONIZED POC CART)?? Lactic Acid Level (Lactate Level)?? Lipid Panel?? MRSA/MSSA PCR Nasal Swab?? Magnesium Level (Mg Level)?? O2 Sat Venous (Lab) POC Cartridge (ISTAT O2SAT)?? Osmolality Urine?? PTT?? Phosphorus Level?? Potassium (Lab) POC Cartridge (POTASSIUM POC CARTRIDGE)?? Procalcitonin Level?? Respiratory Pathogen PCR with COVID-19?? Sodium (Lab) POC Cartridge (SODIUM POC CARTRIDGE)?? Sodium Urine?? Sputum Culture?? Sputum, Gram Smear w/Culture Rfx (Culture Sputum w/ Gram Smear)?? T3 Free (Free T3)?? TSH?? Tot. Lipid Fatty Acid Profile?? US Doppler Ext Lower Venous Bilat (Venous Doppler Ext Lower Bilat (US))?? Urea Nitrogen Urine (UREA NITROGEN, URINE MG/DL)?? Chest Portable (CXR Portable)?? pCO2 Venous (Lab) POC Cartridge (PCO2 VENOUS POC CARTRIDGE)?? pO2 Venous (Lab) POC Cartridge (PO2 VENOUS POC CARTRIDGE)?? Primary Care Provider Naman Caldera MD? Advance Directive Health Care Proxy on File No Patient refuses to discuss Discharge Vitals Temperature: 97.9 DegF Height: 158 cm Pulse Rate: 71 bpm Weight: 97.3 kg Respiratory Rate: 16 br/min Body Mass Index:??40.14 kg/m2??Critical Systolic Blood Pressure: 129 mm Hg Body surface area: 2.1 Diastolic Blood Pressure: 80 mm Hg ?? Oxygen Saturation: 100 % ?? Studies Pending All studies ordered during this hospital stay have been completed unless listed below. Please discuss all pending results with your provider listed above in these instructions. ?? Add On Lab Order?? Basic Metabolic Panel?? Phosphorus Level?? Tot. Lipid Fatty Acid Profile?? What to do next Instructions From Your Doctor ?? Orders? 09/29/24 13:20:00 EST?? Prescriptions??, ??09/29/24 13:20:00 EST?? Scheduled Follow-Up Appointments Friday 9:15 AM EST ?? With: Alivia ROSE, Julissa Garcia Where: [facility] [address] [place] [id number]- Status: Pending You Need to Schedule the Following Appointments Follow Up with??[facility] [phone] When:??Within 1 week Discharge Medications MARLI HANNA :1970 Visit Date:09/16/2024 Medications: Please continue your medications until treatment is completed or stopped by your provider. Medications not listed below should be discontinued. Discuss any questions related to medications with your provider. What How Much When Instructions Next Dose New Aspirin (aspirin 81 mg oral delayed release tablet) 81 Milligram Oral Daily Pickup at [place] [address] next dose 09/30/24 @ 9:00m New Atorvastatin (atorvastatin 40 mg oral tablet) 40 Milligram Oral Daily at Bedtime Pickup at [place] [address] next dose 09/29/24 @ 9:00pm New Carvedilol (Coreg 6.25 mg oral tablet) 1 tab(s) Oral Twice a day Pickup at [place] [address] next dose 09/29/24 @ 9:00pm New Famotidine (famotidine 20 mg oral tablet) 20 Milligram Oral Daily at Bedtime Pickup at [place] [address] next dose 09/29/24??@ 9:00pm New sodium bicarbonate (sodium bicarbonate 650 mg oral tablet) 650 Milligram Oral Twice a day Duration: 30 Days Pickup at [place] [address] next dose 09/29/24 @ 17:00 Changed Levothyroxine (levothyroxine 0.137 mg oral tablet) TAKE 1 TABLET BY MOUTH EVERY DAY ?? next dose 09/30/24 @ 6:00am Unchanged Amlodipine (amLODIPine 5 mg oral tablet) TAKE 1 TABLET BY MOUTH TWICE A DAY ?? next dose 09/29/24 @ 9:00pm Unchanged dulaglutide (Trulicity Pen 1.5 mg/ 0.5 mL subcutaneous solution) INJECT 1 PEN SUBCUTANEOUSLY ONCE A WEEK ?? as directed Pharmacy Information [facility] 3: [address], [place] [id number] [phone] ?? What How Much When Comments Stop Taking Lisinopril 10 Milligram Oral Daily Stop Taking Lisinopril (lisinopril 40 mg oral tablet) TAKE 1 TABLET BY MOUTH EVERY DAY ?? Stop Taking Metformin 500 Milligram Oral Stop Taking Metformin (metFORMIN 500 mg oral tablet) TAKE 2 TABLETS BY MOUTH TWICE A DAY ?? Stop Taking Metoprolol (Metoprolol Tartrate 100 mg oral tablet) TAKE 1 TABLET BY MOUTH TWICE A DAY ?? Stop Taking Metoprolol (Metoprolol Tartrate) 100 Milligram Twice a day Stop Taking Pravastatin 40 Milligram Oral Daily at Bedtime Stop Taking sitagliptin (Januvia) 100 Milligram Oral Daily Prescription Given During Visit Aspirin (aspirin 81 mg oral delayed release tablet) - 81 mg, By Mouth, Daily, # 30 tablet, 0 Refills, [place] [address] [phone]?? Atorvastatin (atorvastatin 40 mg oral tablet) - 40 mg, By Mouth, Daily at bedtime, # 30 tablet, 0 Refills, [place] [address] [phone]?? Carvedilol (Coreg 6.25 mg oral tablet) - 1 tablet = 6.25 mg, By Mouth, 2 times a day, # 60 tablet, 0 Refills, [place] [address] [phone]?? Famotidine (famotidine 20 mg oral tablet) - 20 mg, By Mouth, Daily at bedtime, # 30 tablet, 0 Refills, [place] [address] [phone]?? sodium bicarbonate (sodium bicarbonate 650 mg oral tablet) - 650 mg, By Mouth, 2 times a day, # 60 tablet, 0 Refills, [place] [address] [phone]?? Laboratory Results Below is a partial list of the most recent Laboratory test results done prior to this discharge. You may have had other tests and procedures not included in this list. Please discuss all test resultswith your provider. Est Creatinine Clearance - 13.51 mL/min (09/29/2024) ABG (09/17/2024) ???pH - 7.32???pCO2 - 35 mm Hg???pO2 - 81 mm Hg???Bicarbonate, Estimated - 17 mmol/L???Specimen Type - Blood Gas - ARTERIAL???Percent O2 (FIO2) - 50 ABG POC CARTRIDGE (09/16/2024) ???pH (POC) POC Cartridge - 7.31???pCO2 (POC) POC Cartridge - 40.2 mm Hg???pO2 (POC) POC Cartridge - 93 mm Hg???Estimated Bicarbonate (POC) POC Cart - 20.2 mmol/L???% O2 Sat Arterial (POC) POC Cartridge - 96 %???Specimen Type - Blood Gas - ARTERIAL BASE EXCESS POC CARTRIDGE (09/16/2024) ???Base Excess (POC) POC Cartridge - NEGATIVE 6 Blood Culture (09/16/2024) ???Blood Culture Results - Final report???Blood Culture Specimen Source - BLOOD Blood Culture #2 (09/16/2024) ???Blood Cult 2 Results - Final report???Blood Culture 2 Specimen Source - BLOOD Blood Culture 2 Results (09/16/2024) ???Blood Culture 2 Isolate 1 - Comment Blood Culture Result (09/16/2024) ???Blood Culture Isolate 1 - Comment CALCIUM IONIZED POC CART (09/16/2024) ???Ionized Calcium (POC) POC Cartridge - 1.28 mmol/L CBC (09/29/2024) ???WBC - 5.2 k/mm3???RBC - 3.70 m/mm3???Hgb - 9.7 Gm/dL???Hct - 30.3 %???MCV - 81.9 femtoliters???MCH - 26.2 pg???MCHC - 32.0 Gm/dL???Platelet Count - 334 k/mm3???RDW-SD - 44.6 femtoliters???MPV - 9.2 femtoliters???Nucleated RBC (Automated) - 0.0 #/100 WBC'S???Abs. NRBC - 0.0 k/mm3 CBC w/ Differential (09/16/2024) ???WBC - 8.5 k/mm3???RBC - 4.67 m/mm3???Hgb - 12.0 Gm/dL???Hct - 37.8 %???MCV - 80.9 femtoliters???MCH - 25.7 pg???MCHC - 31.7 Gm/dL???Platelet Count - 343 k/mm3???RDW-SD - 41.3 femtoliters???MPV - 10.1 femtoliters???Nucleated RBC (Automated) - 0.0 #/100 WBC'S???Abs. NRBC - 0.0 k/mm3???Abs. Neut - 6.3 k/mm3???Abs. Lymph - 1.4 k/mm3???Abs. Pecos - 0.7 k/mm3???Abs. Eo - 0.0 k/mm3???Abs. Baso - 0.0 k/mm3???Neut % - 74.1 %???Lymph % - 16.6 %???Pecos % - 8.1 %???Eos % - 0.0 %???Baso % - 0.1 %???Imm Gran - 1.1 %???Abs. Imm Gran - 0.1 k/mm3 Comprehensive Metabolic Panel (09/22/2024) ???Sodium - 133 mmol/L???Potassium - 4.8 mmol/L???Chloride - 99 mmol/L???Bicarbonate Level - 16 mmol/L???Anion Gap - 18???Glucose Level - 107 mg/dL???BUN - 69 mg/dL???Creatinine-Blood - 5.31 mg/dL???Estimated GFR Creatinine - 9 ML/MIN/1.73 M2???Calcium - 9.8 mg/dL???Protein, Total - 7.6 Gm/dL???Albumin - 3.2 Gm/dL???AG Ratio - 0.7???Alkaline Phosphatase - 87 units/L???AST (SGOT) - 26 units/L???ALT (SGPT) - 29 units/L???Bilirubin, Total - 0.2 mg/dL Cortisol Level (09/23/2024) ???Cortisol Level - 16.5 ??g/dL COVID-19 (2019 Novel Coronavirus) PCR (09/16/2024) ???COVID-19 PCR Specimen Source - NASAL???COVID-19 PCR Result - NEGATIVE Creatinine Urine (09/16/2024) ???Creatinine, Urine Random - 22.3 mg/dL Culture Sputum w/ Gram Smear (09/16/2024) ???Sputum Culture Specimen Source - ENDOTRACHEAL ASPIRATE???Sputum Cult Epithelial Cells - Few???Gram Stain Evaluation - Comment???Sputum Gram Stain Result 1 - Comment???Sputum Gram Stain Result 2 - Comment???White Blood Cells - Moderate EST CO2 VENOUS POC CARTRIDGE (09/17/2024) ???Estimated Bicarbonate Luan (POC) POC Cart - 21 mmol/L Free T3 (09/27/2024) ???T3, Free - 1.6 pg/mL Free T4 (09/25/2024) ???Free T4 - 1.22 ng/dL GLUCOSE POC (09/29/2024) ???Glucose, POC - 131 mg/dL GLUCOSE POC CARTRIDGE (09/16/2024) ???Glucose (POC) POC Cartridge - 204 HEMATOCRIT POC CARTRIDGE (09/16/2024) ???Hematocrit (POC) POC Cartridge - 37 % HEMOGLOBIN POC CARTRIDGE (09/16/2024) ???Hemoglobin (POC) POC Cartridge - 12.6 Gm/dL HOLD LAVENDER TUBE (09/20/2024) ???Hold Lavender Top - SPECIMEN DISCARDED AFTER 24 HOURS. ISTAT O2SAT (09/17/2024) ???% O2 Sat Venous (POC) POC Cartridge - 67 Lactate Level (09/16/2024) ???Lactate - 3.3 mmol/L Lipid Panel (09/27/2024) ???Cholesterol - 260 mg/dL???Triglycerides - 222 mg/dL???HDL Cholesterol - 32 mg/dL???LDL Cholesterol - 184 mg/dL???Non HDL Cholesterol - 228 mg/dL Liver Function Panel (09/25/2024) ???Protein, Total - 7.8 Gm/dL???Albumin - 3.3 Gm/dL???Alkaline Phosphatase - 80 units/L???AST (SGOT) - 21 units/L???ALT (SGPT) - 22 units/L???Bilirubin, Total - 0.2 mg/dL???Bilirubin, Direct - 0.1 mg/dL???Bilirubin, Indirect - 0.1 mg/dL Lytes (09/17/2024) ???Sodium - 137 mmol/L???Potassium - 5.0 mmol/L???Chloride - 99 mmol/L???Bicarbonate Level - 19 mmol/L???Anion Gap - 19 Magnesium Level (09/21/2024) ???Magnesium - 2.2 mg/dL Mg Level (09/29/2024) ???Magnesium - 1.8 mg/dL MRSA/MSSA PCR Nasal Swab (09/16/2024) ???MRSA PCR Result - Negative, MRSA target DNA not detected.???S Aureus PCR Result - Positive, SA target DNA detected. NT ProBNP (09/24/2024) ???Nt-Probnp - 1111 pg/mL Osmolality Urine (09/19/2024) ???Osmolality, Urine Random - 246 mOsm/kg PCO2 VENOUS POC CARTRIDGE (09/17/2024) ???pCO2 Venous (POC) POC Cartridge - 42.3 mm Hg PO2 VENOUS POC CARTRIDGE (09/17/2024) ???pO2 Venous (POC) POC Cartridge - 39 mm Hg POTASSIUM POC CARTRIDGE (09/16/2024) ???Potassium (POC) POC Cartridge - 4.1 mmol/L ProBNP (09/20/2024) ???Nt-Probnp - 2450 pg/mL Procalcitonin Level (09/16/2024) ???Procalcitonin - 14.80 ng/mL PT (INR) (09/23/2024) ???INR - 1.1???Protime (PT) - 11.2 seconds PTT (09/16/2024) ???APTT - 23.8 seconds Respiratory Pathogen PCR with COVID-19 (09/16/2024) ???Adenovirus by PCR - NEGATIVE???Coronavirus 229E by PCR (not COVID-19) - NEGATIVE???Coronavirus HKU1 by PCR (not COVID-19) - NEGATIVE???Coronavirus NL63 by PCR (not COVID-19) - NEGATIVE???Coronavirus OC43 by PCR (not COVID-19) - NEGATIVE???Human Metapneumovirus by PCR - NEGATIVE???Rhinovirus/Enterovirus by PCR - NEGATIVE???Influenza A by PCR - NEGATIVE???Influenza B by PCR - NEGATIVE???Parainfluenza 1 by PCR - NEGATIVE???Parainfluenza 2 by PCR - NEGATIVE???Parainfluenza 3 by PCR - NEGATIVE???Parainfluenza 4 by PCR - NEGATIVE???RSV by PCR - NEGATIVE???Bordetella Pertussis by PCR - NEGATIVE??? Chlamydophila Pneumoniae by PCR - NEGATIVE???Mycoplasma Pneumoniae by PCR - NEGATIVE???COVID-19 (SARS-CoV-2) by PCR - NEGATIVE???Bordetella Parapertussis by PCR - NEGATIVE SODIUM POC CARTRIDGE (09/16/2024) ???Sodium (POC) POC Cartridge - 139 mmol/L Sodium Urine (09/19/2024) ???Sodium, Urine Random - 79 mmol/L Sputum Culture (09/16/2024) ???Sputum Culture Isolate 1 - Comment???Sputum Culture Status - Final report Troponin T, High Sensitivity (09/16/2024) ???High Sensitivity Troponin (HSTnT) - 236 ng/L TSH (09/27/2024) ???TSH - 20.40 uIU/mL UA (09/19/2024) ? ?Appear/Color, Urine - COLORLESS? ?Specific [place], Urine - <1.005? ?pH, Urine - 6.5? ?Albumin, Urine - 1+???Glucose, Urine - NEGATIVE???Ketones, Urine - NEGATIVE???Bilirubin, Urine - NEGATIVE???Hemoglobin, Urine - 2+???Nitrite, Urine - NEGATIVE???Leukocyte, Urine - NEGATIVE???Urobilinogen - NORMAL? ?WBC's, Urine - 1 /HPF? ?RBC's, Urine - 12 /HPF? ?Squamous Epith - <1 /HPF UREA NITROGEN, URINE MG/DL (09/16/2024) ???Urea Nitrogen, Urine Random - 101.2 mg/dL VBG (09/16/2024) ???Specimen Type - Blood Gas - VENOUS???pH, Venous - 7.32???pCO2, Venous - 39 mm Hg???pO2, Venous -46 mm Hg???Bicarbonate, Estimated(Venous) - 19 mmol/L You will be contacted within 72 hours with your results. Allergies (NKA means No Known Allergies) shellfish Problems Active Problems??(1) Severe obesity?? Education Materials Below is the list of Educational Leaflet Providered with your Discharge Instructions. Valuables and Belongings I fully understand and agree that [facility] accepts no responsibility for all my personal property including clothing, toilet articles, radios, jewelry, dentures, hearing aids, rings, money, or any other property that is in my possession or is brought to me after admission. I understand certain valuables may be placed in a hospital safe for a short period of time. I understand that the hospital is not liable for loss or damage due to accident, fire, or other natural occurrence while said property is in the safe. I accept full responsibility for any personal property that I keep with me, and will not hold the hospital responsible in case of loss or disappearance. I acknowledge that i have been encouraged to send valuables and belongings home. ?? No Valuables/Belongings: No valuables/belongings present Date for Pt to Sign Valuables/Belongings: 09/18/24 21:51:00 ?? Other Discharge Information ? Case Management Discharge Plan?? Discharge Plan?? Discharge Agency Information?? Discharge Level of Care at Discharge: Homehealth/VNA Name of Agency #1: [facility] [phone] Discharge VNA/Hospice/Home Care: [facility] [phone] Service Categories #1: Physical Therapy, Prison ?? Service Comments #1: [facility] will contact you within 24-48hrs to arrange a visit ?? Pulmonary Rehab Status?? Pulmonary Rehab Discharge Status?? CPAP/BiPAP Mask Type: Full CPAP/BiPAP Mask Size: Medium Respiratory Rate: 16 br/min PEEP: 5 ? Common Emergency Awareness Tips IS IT A STROKE? Act FAST and Check for these signs: FACE Does the face look uneven? ARM Does one arm drift down? SPEECH Does their speech sound strange? TIME Call at any sign of stroke ?? Heart Attack Signs Chest discomfort: Most heart attacks involve discomfort in the center of the chest and lasts more than a few minutes, or goes away and comes back. It can feel like uncomfortable pressure, squeezing, fullness or pain. Discomfort in upper body: Symptoms can include pain or discomfort in one or both arms, back, neck, jaw or stomach. Shortness of breath: With or without discomfort. Other signs: Breaking out in a cold sweat, nausea, or lightheaded. Remember, MINUTES DO MATTER. If you experience any of these heart attack warning signs, call to get immediate medical attention! ?? Smoking can increase your chances of developing chronic health problems and can cause harmful effects to other family members in your house. If you smoke, you are strongly encouraged to quit. Please call [facility] Link at [phone] or [phone] ([phone]) or log in to [email or web address] for referrals to smoking cessation programs. ?? 560 Suicide & Crisis Lifeline is available 24/03 if you or someone you know needs to find a reason to keep living. By calling 042 you'll be connected to a skilled, trained counselor at a crisis center in your area. INPATIENT DISCHARGE INSTRUCTIONS SIGNATURE PAGE ADÁNGILLIANMARLI Location:[facility] Registration Date and Time:09/16/2024 01:56 EST Primary Care Physician: Verenice FONSECA, Naman, Attending Physician: Mary FONSECA, Kirk Johnson, I MARLI HANNA, have received the above patient education materials/instructions and have verbalized understanding. If ambulance or transport services are being used I further acknowledge being given a choice of service. ?? If you need to contact me, please call me at this number: . Patient/Collections Curator Name: Patient/Collections Curator Signature: Relationship to Patient: Witness Name/Signature: Date: * Jade Rsoa RN: PERFORM, SIGN, VERIFY Event Display: Case Management Discharge Plan Authored Date: [id number] Patient: MARLI HANNA Age: 53 years Sex: Female : 1970 Associated Diagnoses: None Author: Jade Rosa RN Discharge Plan Case Management Discharge Plan : Case Management Discharge Plan Data 09/28/2024 10:30 EST Discharge Level of Care at Discharge Homehealth/VNA Discharge VNA/Hospice/Home Care [facility] [phone] Name of Agency #1 [facility] [phone] Service Categories #1 Physical Therapy, Prison Service Comments #1 [facility] will contact you within 24-48hrs to arrange a visit * Event Display: Provider Clarification Note Please click on pdf link to open report * Víctor Medrano MD: PERFORM Event Display: Procedures Invasive Line Authored Date: [id number] Vascular Access Insertion Entered On: 09/16/2024 2:56 EST Performed On: 09/16/2024 2:55 EST by Víctor Medrano MD Vascular Access Insertion Date of Vascular Access Insertion : 09/16/2024 EST Procedure Location Vascular Access : MICU Person recording insertion : Underground Foreman Underground Foreman of Vascular Access : Víctor Medrano MD Occupation of Vascular Access Underground Foreman : Attending physician Was dairy quality assurance officer a member of PICC/IV Team : No Was vascular access order placed : No Vascular Access Type : Arterial line Time Out Performed : Yes Time Out Data : Patient identified, Site verified, Procedure verified, Consent signed, RN attendance Reason for Vascular Access Insertion : Hemodynamic monitoring Suspected Vascular Access Infection : No, the access was not exchanged over a guide wire Vascular Access Procedure Check : Consent obtained Hand Hygiene prior to insertion : Yes Maximal sterile barriers used : Mask, Sterile gown, Large sterile full body drape, Sterile gloves, Ultrasound sterile cover, Cap Sterile Field Maintained : Yes Skin Preparation : Chlorhexidine (CHG) Skin Prep dry at first skin puncture : Yes Vascular Access Catheter Type : Non-tunneled (other than dialysis) Vascular Access Insertion Site : Radial Vascular Access Insertion Side : Right Vessel Identified By : Ultrasound Vascular Access Insertion Circumstance : Emergent (life-threatening or code situation) Vascular Access Dressing : Occlusive Follow-up CXR : Not applicable Complications during Insertion : None Tolerated CLIP procedure well : Yes Insertion Attempts : 1 Mitchell FONSECA, Víctor K - 09/16/2024 2:55 EST Admission evaluation note * Arabella Rosenberg MD: PERFORM Event Display: Admission Note Authored Date: [id number] Patient: ??MARLI HANNA ? Age:??53 Years?Sex:??Female?:??1970?? Chief Complaint/Reason for Consultation cardiac arrest, septic shock History of Present Illness Briefly: 53yoF with pmhx??T2DM with neuropathy, hypothyroidism,??hypertension, hyperlipidemia, vitamin D deficiency who was initially transferred 09/15 from?? s/p cardiac arrest and septic shock requiring intubation??to MICU with course complicated by pneumonia, pulmonary edema, abelardo,??and new cardiomyopathy. Patient extubated 09/17, with resolution of shock and weaned to NC oxygen support, now stable for transfer for acute floor.? On evaluation, patient reports that she remembers suddenly feeling like she was falling prior to her arrest. She denied chest pain, shortness of breath, lightheadedness, dizziness, or abdominal discomfort. She remembers expressing I feel like i'm going to to someone around her and asked for EMS to be called. Now, she feels better and is thankful that she is alive. She notes some chest discomfort from the cpr which is reproducible. ?? Per Admission note, patient received CPR for 14min with 1x epi before ROSC. At ,??labs notable for??leukocytosis 19,??hypokalemia 2.9, creatinine 1.51,??hyperglycemia 300,??troponin 24.5, TSH 39.14with free T41.04, mag??2.3, lactate??10.5. ??CXR??notable for??right lung airspace disease with right lower lobe consolidation. ??She was intubated and transferred to [facility] ICU for septic shock s/p cardiac arrest with propofol gtt, levophed gtt, and bicarb gtt. ?? Hospital course??per MICU note:?? PEA at OSH (given TNK) of unclear etiology. Intubated found to have pna, pulm edema, new CMP /w EF25-30%, ABELARDO, shock. low suspicion of PE based on RV eval, negative DVT study, and marked improvement off AC. extubated 09/17, now on 1L LFNC. Urine output increased, likely in polyuric phase of ATN, lytes and acid base stable. remains on ceftriaxone. consulted cardiology today given new CMP, which may be stunning iso recent arrest. HDS, stable for floor /w tele. Objective Measurements?? Height: 158 cm (09/16/24) Weight: 97.3 kg (09/17/24) Dry Weight: 98 kg (09/16/24) Body Mass Index:??40.14 kg/m2??Critical (09/16/24) ? Vital Signs?? Temperature: 98.1 DegF (09/19/24 03:00:00) Temperature Route: Oral (09/19/24 03:00:00) Pulse Rate:??103 bpm??High (09/19/24 03:00:00) Heart Rate Monitored:??107 bpm??High (09/18/24 18:00:19) Respiratory Rate: 21 br/min (09/19/24 03:00:00) Vented: No (09/18/24 18:00:00) Systolic Blood Pressure: 138 mm Hg (09/19/24 03:00:00) Diastolic Blood Pressure: 84 mm Hg (09/19/24 03:00:00) Blood pressure sites: Arm, left (09/19/24 03:00:00) Pulse Pressure: 54 mm Hg (09/19/24 03:00:00) Oxygen Saturation: 94 % (09/19/24 03:00:00) Liters per Minute: 1 L/min (09/19/24 03:00:00) Mode of Delivery (Oxygen): Nasal cannula (09/19/24 03:00:00) FiO2: 50 % (09/18/24 07:00:00) Early Warning Score: 8 (09/19/24 03:01:18) ? Physical Exam Gen: No acute distress, well appearing, CPAP in place, obese female, castelan in place. HEENT:??Neck full ROM, mucous membranes moist, EMOI, PERRLA CV:??S1, S2 heard, no murmurs appreciated. ??No LE edema. Cap refill <2s.?? Resp: Lungs clear to auscultation bilaterally,??breathing comfortably with CPAP, transmitted breathsounds heard.?? Abd:??Soft, nontender, nondistended, obese abdomen Mentation: Baseline, A&O x3 Assessment/Plan Diagnoses ABELARDO (acute kidney injury) ??(N17.9) Acute hypoxemic respiratory failure ??(J96.01) Cardiac arrest with pulseless electrical activity ??(I46.9) Heart failure with reduced ejection fraction ??(I50.20) Hyperlipidemia ??(E78.5) Hypertension ??(I10) Normocytic hypochromic anemia ??(D50.9) PNA (pneumonia) ??(J18.9) Pulmonary edema ??(J81.1) Type 2 diabetes mellitus ??(E11.9) 1. ??Cardiomyopathy ??(I42.9) ?? Assessment:??53yoF with pmhx??T2DM with neuropathy, hypothyroidism,??hypertension, hyperlipidemia, vitamin D deficiency who was initially transferred 09/15 from??HH s/p cardiac arrest and septic shockrequiring intubation??to MICU with course complicated by pneumonia, pulmonary edema, abelardo,??and new cardiomyopathy. Patient extubated 09/17, with resolution of shock and weaned to NC oxygen support, now stable for transfer for acute floor. Patient currently pending??Improvement of renal function, wean off oxygen support, further investigation and management of new cardiomyopathy, and overall clinical improvement. ?? Acute hypoxemic respiratory failure (J96.01) - improving PNA (pneumonia) (J18.9) Pulmonary edema (J81.1) - resolved Patient initially intubated, s/p extubation now requiring near 1L NC and CPAP nightly?? Patient on ceftriaxone s/p zosyn?? 09/16 CXR??Support lines and tubes in appropriate position. Mild diffuse airspace opacities in the right lower lung, may be atelectasis and/or early infiltrate process. Left retrocardiac opacity consistent with left lower lobe atelectasis and/or infiltrates and/or a small left pleural effusion. 09/16 CT Chest -??Bilateral lower lung opacities are concerning for infection or aspiration. There is concomitant pulmonary edema with pleural effusions, interlobular septal thickening, and basilar atelectasis. ?? Enlarged right precarinal lymph node could be reactive. ?? Plan: - Continue ceftraixone for??5-7d total?? Plan: - Continuous O2 monitor - Continue to wean oxygen as tolerated - Pt likely with undiagnosed FRANCISCO, would benefit from sleep study outpatient ?? ABELARDO (acute kidney injury) (N17.9):?? Creatinine has been increasing from 1.83 on arrival 09/16 to 5.6 now. Initially patient was oliguric, however urine production has improved and patient now has clear urine in castelan bag Pt treated with lasix during admission. Concern for transition of oliguiric??phase to polyuric phase of ATN? Plan:?? - Monitor I/Os - Daily BMP - Consult Renal, appreciate recommendations - Avoid nephrotoxic medications?? - Hold on further lasix at this time, patient appear euvolemic? Heart failure with reduced ejection fraction (I50.20) S/p Cardiac arrest with pulseless electrical activity (I46.9) Cardiomyopathy (I42.9) Hypertension (I10) Hyperlipidemia (E78.5) Echo with EF 20-25% with LBBB on EKG without known cardiac history Concern for chronic undiagnosed heart failure vs depressed EF post cardiac arrest S/p PEA arrest where pt was given??TNK. RV size is normal. US LE venous doppler neg for DVT.? Plan: - Cardiology consulted and recommend stabilizing renal function prior to continued ischemic workup with ct coronaries vs cardiac cath and initiation of gdmt ?- Patient likely needs zio patch after discharge - monitor tech - Initiation of GDMT pending renal improvement and further cardiac investigation ?? Normocytic hypochromic anemia (D50.9):?? Hb has been reducing during hospitalization, initially 12, now 9 Patient s/p TNK at OSH No signs of acute blood loss at this time. Consider reactive in acute process.? Plan:?? - Daily cbc - Monitor for signs of blood loss ?? Type 2 diabetes mellitus (E11.9):??- Continue insulin sliding scale - POC glc TID and bedtime ?? Hypothyroidism (E03.9) - Continue home levothyroxine 137mcg ?? Quality??Measures VTE Prophylaxis:??SQH ?VTE Prophylaxis Assessment:??VTE Prophylaxis Ordered Discharge Planning:??Pending clinical course Ongoing Medical Necessity:??Improvement of renal function, wean off oxygen support, further investigation and management of new cardiomyopathy. Code Status:??Full code confirmed on transfer to acute floor ?Order Code Status:??Code Status Ordered ? Patient discussed with attending, Dr. Catse. ?? Arabella Rosenberg MD Internal Medicine-Pediatrics PGY3 Histories Allergies Allergies ?(Active and Proposed Allergies Only) shellfish? (Severity: Unknown severity, Onset: Unknown) ? Past Medical History/Problem List Active Problems(1) Severe obesity Neuropathy Hypothyroidism Hypertension Hyperlipidemia Vitamin D deficiency ? Past Surgical History investigating ? Social History Tobacco Details:??Use: Never smoker. investigating ? Family History investigating ? Medications Home Medications Amlodipine (amLODIPine 5 mg oral tablet)?TAKE 1 TABLET BY MOUTH TWICE A DAY dulaglutide (Trulicity Pen 1.5 mg/0.5 mL subcutaneous solution)?INJECT 1 PEN SUBCUTANEOUSLY ONCEA WEEK Levothyroxine (levothyroxine 0.137 mg oral tablet)?TAKE 1 TABLET BY MOUTH EVERY DAY Lisinopril (lisinopril 40 mg oral tablet)?TAKE 1 TABLET BY MOUTH EVERY DAY Metformin (metFORMIN 500 mg oral tablet)?TAKE 2 TABLETS BY MOUTH TWICE A DAY Metoprolol (Metoprolol Tartrate 100 mg oral tablet)?TAKE 1 TABLET BY MOUTH TWICE A DAY ? Inpatient Medications Medications (7) Active SCHEDULED: (6) Albuterol 0.083% Inhalation Solution (Albuterol 0.083% inhalation karen) ??2.5 mg 3 mL, BAND Nebulizer, 4 times a day Ceftriaxone 1 Gm Inj (Ceftriaxone Inj) ??1 Gm, IVPB, Every 24 hours Famotidine 10 mg/mL Inj (Famotidine Inj) ??20 mg 2 mL, IV Push Slowly, Every 24 hours Heparin 5000 units/mL Inj (1 mL) (Heparin Inj) ??5,000 units 1 mL, Subcutaneous Injection, 3 times a day Insulin Lispro 100 units/mL Inj (Insulin LISPRO Sliding Scale) ??2-10 units, Subcutaneous Injection, 3 times a day before meals Levothyroxine 137 mcg Tablet (levothyroxine 0.137 mg oral tablet) ??137 mcg, Orogastric Tube, Daily CONTINUOUS: (0) PRN: (1) Acetaminophen 325 mg Tablet (Tylenol 325 mg oral tablet) ??650 mg, By Mouth, Every 4 hours ? Results Recent Labs BACTERIOLOGY Sputum Culture Status Final report ()?? 09/16/2024 11:31 ?? BLOOD COUNT & DIFF WBC 5.8 k/mm3 ()?? 09/18/2024 03:00 RBC 3.56 m/mm3 (Low)?? 09/18/2024 03:00 Hgb 9.4 Gm/dL (Low)?? 09/18/2024 03:00 Hct 29.1 % (Low)?? 09/18/2024 03:00 MCV 81.7 femtoliters ()?? 09/18/2024 03:00 MCH 26.4 pg (Low)?? 09/18/2024 03:00 MCHC 32.3 Gm/dL (Low)?? 09/18/2024 03:00 Platelet Count 207 k/mm3 ()?? 09/18/2024 03:00 RDW-SD 43.8 femtoliters ()?? 09/18/2024 03:00 MPV 10.0 femtoliters ()?? 09/18/2024 03:00 Nucleated RBC (Automated) 0.0 #/100 WBC'S ()?? 09/18/2024 03:00 Abs. NRBC 0.0 k/mm3 ()?? 09/18/2024 03:00 ?? CHEM GENERAL Sodium 139 mmol/L ()?? 09/18/2024 16:18 Potassium 4.4 mmol/L ()?? 09/18/2024 16:18 Chloride 101 mmol/L ()?? 09/18/2024 16:18 Bicarbonate Level 17 mmol/L (Low)?? 09/18/2024 16:18 Anion Gap 21 (High)?? 09/18/2024 16:18 Glucose Level 109 mg/dL (High)?? 09/18/2024 16:18 Glucose, POC 140 mg/dL (High)?? 09/18/2024 22:11 BUN 54 mg/dL (High)?? 09/18/2024 16:18 Creatinine-Blood 5.16 mg/dL (High)?? 09/18/2024 16:18 Estimated GFR Creatinine 9 ML/MIN/1.73 M2 ()?? 09/18/2024 16:18 Calcium 9.0 mg/dL ()?? 09/18/2024 16:18 Phosphorus 8.1 mg/dL (High)?? 09/18/2024 03:00 Magnesium 2.2 mg/dL ()?? 09/18/2024 16:18 ?? URINE OTHER Est Creatinine Clearance 10.18 mL/min ()?? 09/18/2024 17:08 ? * Loan FONSECA, Mary Kerns: PERFORM Event Display: Admission Note Authored Date: Attending attestation.??Patient seen and examined on Sep 19. Reviewed HPI, ROS. I have independently examined the patient, confirmed physical exam findings and developed the plan with the resident. Agree with assessment and plan as outlined in Dr. Rosenberg' note. ?? Worsening acute kidney injury - likely ATN. Renal consult. * Brad Ramos DO: PERFORM, MODIFY, MODIFY, MODIFY, MODIFY, MODIFY, MODIFY, MODIFY, MODIFY, MODIFY, MODIFY, MODIFY, MODIFY Winston FONSECA, MMALANNAH,SIN, Vish: MODIFY Event Display: Admission Note Authored Date: Patient: ??MARLI HANNA ? Age:??53 Years?Sex:??Female?:??1970?? Chief Complaint/Reason for Consultation cardiac arrest, septic shock History of Present Illness 53F with a past medical history of type 2 diabetes mellitus??with neuropathy, hypothyroidism,??hypertension, hyperlipidemia, vitamin D deficiency??coming in as a transfer from s/p cardiac arrest and septic shock. ?? HPI obtained from??paper charts??from OSH.?? Patient's mother reports that they had just gotten outof latter-day. ??Patient then started complaining of severe shortness of breath, she was helped into the car and came into the ED.?? On arrival to the emergency room, she was initially talking in triage,but then became unresponsive and pulseless. Per EMS report, CPR went on for 14 minutes and epinephrine was only given once before ROSC was achieved. ?? OSH Hospital course: Initial vital signs,??97F, heart rate 90,??BP 108/65.?? Lab work??showed??ABG pH 6.93, pCO2 67, pO274, bicarb of 14.?? She had a leukocytosis of 19, H/H 14.8/48.6, platelets at 378.?? Hypokalemia at2.9, creatinine elevated at 1.51, glucose high at 300.?? LFTs within normal limits.?High-sensitivity troponin was 24.5, TSH was 39.14 with a free T4 of 1.04.?? Magnesium was 2.3. ??Elevated lactate to 10.5.?? Chest x-ray showed right lung airspace disease with right lower lobe consolidation. ??Patient was intubated, no findings of pleural effusion, pneumothorax or cardiomegaly. Transferred to [facility] ICU for septic shock s/p cardiac arrest. CT head--not done at because of ventilation issues (spoke to her nurse at , confirmed unable to do any imaging besides CXR). ?? Home medications: Metoprolol 100 mg??twice daily, amlodipine 5 mg twice daily, metformin??1000 mg twice daily, chlorthalidone??12.5 mg daily, Trulicity, levothyroxine 137 mcg daily, lisinopril 40 mg daily. ?? On arrival, she is on propofol, levophed and bicarbonate drip. Finished her course of vancomycin. ?? Review of Systems unable to obtain Objective Vital Signs?? Temperature: 97.8 DegF (09/16/24 02:10:00) Temperature Route: Oral (09/16/24 02:10:00) Pulse Rate: 89 bpm (09/16/24 02:19:00) Heart Rate Monitored: 89 bpm (09/16/24 02:19:00) Respiratory Rate: 18 br/min (09/16/24 02:10:00) Vented: Yes (09/16/24 02:07:00) Systolic Blood Pressure: 119 mm Hg (09/16/24 02:10:00) Diastolic Blood Pressure:??86 mm Hg??High (09/16/24 02:10:00) Blood pressure sites: Arm, right (09/16/24 02:10:00) Mean Arterial Pressure: 97 mm Hg (09/16/24 02:10:00) Pulse Pressure: 33 mm Hg (09/16/24 02:10:00) Oxygen Saturation: 95 % (09/16/24 02:20:32) Mode of Delivery (Oxygen): Ventilator (09/16/24 02:10:00) FiO2: 100 % (09/16/24 02:00:00) ? Physical Exam General Appearance:?? intubated sedated no response. pupils are 2mm bilaterally and minimally responsive to light. obese body habitus Cardiovascular: RRR S1 and S2 heard with no M/R/G. Respiratory: ??Breath sounds bilaterally . + crackles GI: Soft. Nontender and nondistended.?No rebound tenderness or other findings suggestive of an acute abdomen.?? MS: ??No appreciable BLE edema. Skin:??No rashes seen on extremities. Neuro:?Could not assess speech due to intubated. deeply sedated Assessment/Plan 53F with a past medical history of type 2 diabetes mellitus??with neuropathy, hypothyroidism,??hypertension, hyperlipidemia, vitamin D deficiency??coming in as a transfer from s/p PEA cardiac arrest and septic shock of unknown origin. ?? Neuro Intubated Sedated s/p TNK (?) at outside hospital, not sure what the indication was - propofol gtt with RASS goal -3 to -4 for ARDS - fentanyl gtt to titrate CPOT<2, and fentanyl 25mcg prn pushes q2 for CPOT>2 - CTH post-arrest to eval for anoxia, however, rocuronium is wearing off, gag reflex is intact, withdraws to pain in all 4 extremities (to perform when she is on a lower PEEP, she is on a PEEP of 18 right now) ?? Cardiovascular Hypertension Hyperlipemia PEA cardiac arrest Septic Shock unclear etiology but may be PNA was complaining of shortness of breath, PEA arrest - norepinephrine currently at 0.1, MAP goal>65mmHg - hydrocortisone 100mg every 8 hours - fludrocortisone 0.05 mg QD - holding home metoprolol, amlodipine, lisinopril and chlorthalidone ?? Pulmonary Acute Hypoxic Hypercarbic Respiratory Failure iSTAT labs shows pH 7.1, PF ratio about 92 given rocuronium in the helicopter en route to [facility] to help with ventilation synchrony currently 28/480/18/100% FiO2 - ACVC, lung protective ventilation with??low tidal volume (around 6-8 ml/kg predicted body weight), plateau pressure <30 cm H2O, driving pressure??<15 cm H2O, wean down FiO2 - ABG improved - COVID negative, pending RSV and flu ?? GI - famotidine while intubated - meds through OGT, will confirm line placement with CXR statport ?? ID Community Acquired Pneumonia CXR from OSH showed RLL consolidation - COVID/RSV/Flu sent - Zosyn and vancomycin ?? Renal/Electrolytes Acute Kidney Injury Hypokalemia- resolved K was 2.9 on arrival to OSH Cr 1.5, unclear baseline - recheck K>>4.1 - castelan in place ?? Endo Type 2 DM holding home metformin and Trulicity POC 178 on arrival to the unit - insulin lispro and POC q6 while intubated ?? Hypothyroidism - on levothyroxine 135mcg at home ?? Heme/Onc no active issues ?? MSK no active issues ?? Quality measures VTE prophylaxis: [facility] Code status: full Diet: NPO Family update: mother (marli) and son updated on admission; Marli Senior is bilingual Polish and Chinese, but she says she would prefer an hospital cna present for medical updates for questions Patient case and plan discussed with attending physician Dr. Medrano ?? Brad Ramos??DO Internal Medicine PGY3 ?? Supervising Attending Note ?? I have personally reviewed this patient and participated in the management plan outlined above. ?? Date of Service:?09/16/2024? I spent additional??90 minutes in performing critical care.?? The patient required critical careservices due to??critical and medical diagnoses and problems listed below.??The threat to imminent deterioration of these conditions mandated critical care monitoring, observation and management. This critical care service was provided in supervision of house staff (residents and/or fellows taking care of the patient), and/or [id number] with an advanced practice provider yet independently provided critical care services with additional critical care time as documented above. ?? Critical care diagnoses: ?? Acute hypoxic??and hypercarbic respiratory failure. Post PEA arrest. Possible massive PE. Post arrest anoxic ischemic encephalopathy. At need for targeted temperature management. Postcardiac arrest??ischemic cardiomyopathy. Undifferentiated shock ?? Her clinical presentation is not very clear.?? We are not sure why she deteriorated and had a PEA arrest.?? This probably of her respiratory??origin??but??it is also possible that administration of tenecteplase helped to stabilize her and get her back with a return??of spontaneous circulation.??From our standpoint at the moment she is critically ill and with an unknown and guarded prognosis.?? We will target??therapeutic hypothermia externally to see if we regain some mental function and preserve some??tissues.?? We will monitor her??kidney function and kidney perfusion.?? Will obtain CT scan of the brain as well as CT scan of the chest to see if we find any??pathologies that explain the clinical picture.?? Family were at bedside. ?? Critical care time reflects my personal work performing the following specific actions at the patient's bedside with the multidisciplinary team: ?? Critical care management included:??Active management of invasive mechanical ventilation, Assessment and interpretation of invasive hemodynamic monitoring, Management of Unstable hemodynamics withvasopressors and/or inoptropes, Management of Unstable hemodynamics with IV fluids infusions or boluses, Management of Unstable hemodynamics with diuretics, Management of Unstable hemodynamics with IV corticosteroids, Continuous neurological assessment due to acute, impending, or ongoing neurologiccompromise, Management of sedative infusions See chart documentation for additional details ?? Additional activities performed during the critical care time included: - Review of overnight and recent events - Review of medications, allergies, and vital signs - Serial data review - Ordering, interpreting, and reviewing diagnostic studies/lab tests - Clinical examination - High complexity medical decision-making ?? This time also includes time spent for documentation, but??does not include time spent in performing any separately billed procedures. ?? Vish Montero MD, KATHY, A Supervising Critical Care Medicine Attending Division of Pulmonary, and Critical Care Medicine, Department of Medicine, [facility]?? Histories Allergies Allergies ?(Active and Proposed Allergies Only) shellfish? (Severity: Unknown severity, Onset: Unknown) ? Past Medical History/Problem List No problems documented. ? Past Surgical History No surgery history documented. ? Social History Tobacco Details:??Use: Never smoker. ? Family History No Family History documented. ? Medications Home Medications Levothyroxine?100?Microgram?Daily Lisinopril?10?Milligram?By Mouth?Daily Metformin?500?Milligram?By Mouth Metoprolol (Metoprolol Tartrate)?100?Milligram?2 times a day Pravastatin?40?Milligram?By Mouth?Daily at bedtime sitagliptin (Januvia)?100?Milligram?By Mouth?Daily ? Results Recent Labs No labs resulted between 09/15/2024 00:00 and 09/16/2024 02:42? EKG study * Event Display: ECG 12-Lead Authored Date: Please click on pdf link to open report * Event Display: ECG 12-Lead Authored Date: Ventricular Rate: 100 BPM Atrial Rate: 100 BPM P-R Interval: 144 ms QRS Duration: 136 ms Q-T Interval: 394 ms QTC Calculation(Bazett): 508 ms P Haverstraw: 36 degrees R Haverstraw: -8 degrees T Haverstraw: 40 degrees Normal sinus rhythm Left bundle branch block Abnormal ECG Confirmed by RIVAS LEES ([id number]) on 09/23/2024 2:49:21 PM [place]: RIVAS LEES * Event Display: ECG 12-Lead Authored Date: Please click on pdf link to open report * Event Display: ECG 12-Lead Authored Date: Ventricular Rate: 97 BPM Atrial Rate: 97 BPM P-R Interval: 150 ms QRS Duration: 132 ms Q-T Interval: 392 ms QTC Calculation(Bazett): 497 ms P Haverstraw: 42 degrees R Haverstraw: -9 degrees T Haverstraw: 61 degrees Sinus rhythm with Premature supraventricular complexes Left bundle branch block Abnormal ECG Confirmed by RIVAS LEES ([id number]) on 09/23/2024 2:49:15 PM [place]: RIVAS LEES * Event Display: ECG 12-Lead Authored Date: Please click on pdf link to open report * Event Display: ECG 12-Lead Authored Date: Ventricular Rate: 105 BPM Atrial Rate: 105 BPM P-R Interval: 152 ms QRS Duration: 138 ms Q-T Interval: 398 ms QTC Calculation(Bazett): 526 ms P Haverstraw: 34 degrees R Haverstraw: 14 degrees T Haverstraw: 233 degrees Sinus tachycardia with occasional Premature ventricular complexes and Fusion complexes Left bundle branch block Minimal voltage criteria for LVH, may be normal variant ( [place] product ) Possible Anterolateral infarct , age undetermined T wave abnormality, consider inferior ischemia Abnormal ECG When compared with ECG of 16-Sep-2024 09:48, Premature ventricular complexes are now Present T wave inversion now evident in Inferior leads Confirmed by Randall Camarena ([id number]) on 09/17/2024 12:24:16 PM [place]: Randall Camarena Heart * Event Display: Echocardiogram - Complete Authored Date: [id number] Transthoracic Echocardiography Report (TTE) Patient Demographics Patient Name MARLI HANNA Date of Study 09/21/2024 Corporate Gender Female Facility Race Unknown .[id number] Ethnicity or Date of 1970 Height: 62.2 inches Age 53 year(s) Weight: 213.85 pounds Accession Number [id number] BSA: 1.97 m2 Room Number [id number] BMI: 38.86 kg/m2 Referring Héctor Wiseman MD Interpreting Marvin Colbert, Physician Physician Cocoa Milling Machine Operator Gaurav Bruno [facility] Indications Heart failure. Clinical History Severe Obesity Hypertension. Diabetes Mellitus. Hyperlipidemia. Cardiac arrest Septic shock Study Data Type of Study TTE procedure:Echo Complete-(Doppler, Colorflow) with Contrast. Procedure Information:Definity was administered by RN . Study Date09/21/2024 Start Time: 11:10 AM Study Location: [facility] [place] Adult Echo Study Status: Echo lab Patient Status: Routine Technical Quality: Adequate Blood Pressure:135/65 mmHg EKG: Sinus with ectopy HR: 91 bpm Contrast Medium: Definity. Amount - 2 ml 2D Measurements LV Diastolic Dimension: 5.4 cm LV Systolic Dimension: 4.9 cm LV Septum Diastolic: 1.2 cm LV PW Diastolic: 1.2 cm AO Root Dimension: 2.9 cm LA Dimension: 4.1 cm LA ESV (BP):44.1 ml LVOT Stroke Volume: 50.2 ml LA ESV Index: 22 ml/m2 Stroke Volume Index25.48 ml/m2 LVOT: 2.1 cm Cardiac Index:2.32 l/min/m2 Ascending Aorta:3 cm Doppler Measurements AV Peak Velocity: 115 cm/s MV Peak E-Wave: 77.1 cm/s AV Peak Gradient: 5.29 mmHg MV Peak A-Wave: 75.8 cm/s AV Mean Gradient: 4 mmHg MV E/A Ratio: 1.02 AV VTI:25.7 cm LVOT Peak Velocity: 73.7 cm/s MV Mean Gradient: 2 mmHg LVOT VTI14.5 cm MV Area (continuity): 2.24 cm2 AV Area (Continuity):1.95 cm2 MV Deceleration Time: 141 msec PV Peak Velocity: 103 cm/s E' Septal Velocity: 4.57 cm/s PV Peak Gradient: 4.24 mmHg E' Lateral Velocity: 6.96 cm/s E/Med E':16.8709 E/Lat E':11.72005 Cardiac Anatomy Left Ventricle/Interventricular Septum The left ventricle is mildly dilated. The left ventricular wall thickness is mildly increased. The LV systolic function is severely reduced. Quantitative LVEF 27% (biplane Zimmerman). There is severe global LV hypokinesis. There is abnormal septal motion consistent with LBBB. Unable to assess diastolic function. LV global longitudinal strain is severely abnormal, Left Atrium/Interatrial Septum The left atrium is normal in size (by indexed volume). Aortic Valve The aortic valve is probably trileaflet. There is no aortic stenosis. There is no aortic regurgitation. Mitral Valve The mitral annulus is dilated. The mitral leaflets appear mildly thickened. There is apical tethering of both mitral leaflets. There is mild mitral regurgitation. Aorta The ascending aorta and aortic root are normal in size. Right Ventricle The right ventricle is normal in size and systolic function. Right Atrium The right atrium is normal in size. Pulmonic Valve The pulmonic valve is grossly normal. The pulmonic valve is functionally normal. Tricuspid Valve The tricuspid valve is poorly visualized. There is trace tricuspid regurgitation. Pumonary Artery Unable to estimate pulmonary artery systolic pressure. Venous Structures The inferior vena cava size is normal with normal inspiratory collapse. The central venous pressure estimation is normal, 3mmHg. Pericardium/Extracardiac There is no significant pericardial effusion. Summary The left ventricle is mildly dilated. The left ventricular wall thickness is mildly increased. The LV systolic function is severely reduced. Quantitative LVEF 27% (biplane Zimmerman). There is severe global LV hypokinesis. There is abnormal septal motion consistent with LBBB. Unable to assess diastolic function. LV global longitudinal strain is severely abnormal, The right ventricle is normal in size and systolic function. Normal biatrial size. There is mild mitral regurgitation. Normal CVP estimate. Unable to estimate PASP. Comparison Comparison is made to the study of September 16, 2024. No definite significant change. Signature * Event Display: Echocardiogram - Complete Authored Date: * Event Display: Echocardiogram - Complete Authored Date: Transthoracic Echocardiography Report (TTE) Patient Demographics Patient Name MARLI HANNA Date of Study 09/16/2024 Corporate Gender Female Facility Race Unknown .[id number] Ethnicity or Date of 1970 Height: 62.2 inches Age 53 year(s) Weight: 220.46 pounds Accession Number [id number] BSA: 2 m2 Room Number [id number] BMI: 40.06 kg/m2 Referring Salima López MD Interpreting Brandon Adams MD Physician Physician Cocoa Milling Machine Operator Ml Gallagher Indications Hypoxemia and Congestive heart failure. Clinical History Diabetes Mellitus. Hypertension. Hyperlipidemia. Study Data Type of Study TTE procedure:Echo Complete-(Doppler, Colorflow) with Contrast. Procedure Information:Saline (bubble study) was administered by Data Modeler . Study Date09/16/2024 Start Time: 03:11 PM Study Location: [facility] [place] Adult Echo Study Status: Bedside Patient Status: Routine Technical Quality: Technically difficult due to patient on ventilator. Blood Pressure:131/61 mmHg EKG: Sinus tachycardia HR: 98 bpm Contrast Medium: Definity. Amount - 2 ml 2D Measurements LV Diastolic Dimension: 4.5 cm LV Systolic Dimension: 3 cm LV Septum Diastolic: 1.3 cm LV PW Diastolic: 1.2 cm AO Root Dimension: 3.4 cm LA Dimension: 3.2 cm LA ESV (BP):37.1 ml LVOT Stroke Volume: 39.67 ml LA ESV Index: 19 ml/m2 Stroke Volume Index19.84 ml/m2 LVOT: 1.9 cm Cardiac Index:1.94 l/min/m2 Ascending Aorta:3.1 cm Doppler Measurements AV Peak Velocity: 152 cm/s MV Peak E-Wave: 80.9 cm/s AV Peak Gradient: 9.24 mmHg AV Mean Gradient: 5 mmHg AV VTI:25.2 cm MV Mean Gradient: 2 mmHg LVOT Peak Velocity: 91.5 cm/s MV Area (continuity): 1.97 cm2 LVOT VTI14 cm AV Area (Continuity):1.57 cm2 PV Peak Velocity: 112 cm/s PV Peak Gradient: 5.02 mmHg E' Septal Velocity: 4.13 cm/s E' Lateral Velocity: 8.27 cm/s E/Med E':19.61310 E/Lat E':9.857343 Cardiac Anatomy Left Ventricle/Interventricular Septum The left ventricular size is normal. The left ventricular wall thickness is mildly increased. The LV systolic function is severely reduced. The left ventricular ejection fraction is 25-30%. There is global hypokinesis of the left ventricle. There is abnormal septal motion consistent with LBBB. Unable to assess diastolic function. Left Atrium/Interatrial Septum The left atrium is normal in size. An agitated saline study (bubble study) was performed and was normal at rest and with Valsalva. There is no evidence of right to left shunting. Aortic Valve The aortic valve is probably trileaflet. There is no aortic stenosis. There is no aortic regurgitation. Mitral Valve The mitral valve is grossly normal. There is trace mitral regurgitation. Aorta The ascending aorta and aortic root are normal in size. Right Ventricle The right ventricle is normal in size and function. Right Atrium The right atrium is normal in size. Pulmonic Valve The pulmonic valve appears grossly normal. There is no significant pulmonic regurgitation. Tricuspid Valve The tricuspid valve is grossly normal. There is trace tricuspid valve regurgitation. Pumonary Artery An accurate pulmonary artery pressure could not be obtained. Venous Structures The inferior vena cava appears normal. Pericardium/Extracardiac There is no significant pericardial effusion. Summary 1) The LV systolic function is severely reduced. The left ventricular ejection fraction is 25-30%. There is global hypokinesis of the left ventricle. There is abnormal septal motion consistent with LBBB. 2) The left ventricular wall thickness is mildly increased. 3) The right ventricle is normal in size and function. 4) An agitated saline study (bubble study) was performed and was normal at rest and with Valsalva. There is no evidence of right to left shunting. 5) No significant valvular abnormalities. Comparison No prior study available for comparison. Signature * Event Display: Echocardiogram - Complete Authored Date: Cardiology * Event Display: Cardiac Rhythm Strips Authored Date: * Event Display: Cardiac Rhythm Strips Authored Date: * Event Display: Cardiac Rhythm Strips Authored Date: * Event Display: Stress Nuc with Regadenoson Authored Date: Please click on pdf link to open report Hospital Progress note * Josue Rosas LPN: PERFORM, SIGN, VERIFY Event Display: Progress Note Hospital Authored Date: Patient: MARLI HANNA Age: 53 years Sex: Female : 1970 Associated Diagnoses: None Author: Josue Rosas LPN Findings Narrative/Incidental Patient discharge paperwork gone over with patient including F/U appointments. IV discontinued catheter tip in place. Patient belongings including cell-phone and chargers. Patient now discharged homewith family.. Discharge Information Case Management Discharge Plan : Case Management Discharge Plan Data 09/28/2024 10:30 EST Discharge Level of Care at Discharge Homehealth/VNA Discharge VNA/Hospice/Home Care [facility] [phone] Name of Agency #1 [facility] [phone] Service Categories #1 Physical Therapy, Prison Service Comments #1 [facility] will contact you within 24-48hrs to arrange a visit * Josue Rosas LPN: PERFORM, SIGN, VERIFY Event Display: Progress Note Hospital Authored Date: Patient: MARLI HANNA Age: 53 years Sex: Female : 1970 Associated Diagnoses: None Author: Josue Rosas LPN Findings Narrative/Incidental Patient alert and oriented times 4. Lung sounds clear. Bowel sounds positive times 4 quadrants. Denies any pain at this time. Patient tolerated all medications and breathing treatments. Patient expected to be dischaaarged at 3:30pm. Will continue current plan of care.. Discharge Information Case Management Discharge Plan : Case Management Discharge Plan Data 09/28/2024 10:30 EST Discharge Level of Care at Discharge Homehealth/VNA Discharge VNA/Hospice/Home Care [facility] [phone] Name of Agency #1 [facility] [phone] Service Categories #1 Physical Therapy, Prison Service Comments #1 [facility] will contact you within 24-48hrs to arrange a visit * Michelle ROSE, Karissa: PERFORM Event Display: Progress Note Hospital Authored Date: [id number] Patient: ??MARLI HANNA ? Age:??53 Years?Sex:??Female?:??1970?? Attending:??Kirk Hernandez MD Admission Date: 09/16/2024 ?? Subjective Patient seen and examined; events noted.?? No complaints to offer this morning. ? Objective Vital Signs (last 24 hrs) ?Last Charted Heart Rate Peripheral?H??96bpm ??(SEP 29 07:00) Resp Rate?20 br/min ??(SEP 29 07:00) SBP?132 mm Hg ??(SEP 29 07:00) DBP?78 mm Hg ??(SEP 29 07:00) SpO2?99 % ??(SEP 29 07:00) Height?158 cm ??(SEP 29:28) Intake?? Output?? Oral Fluids: 360 mL (08:00) Urine Voided: 1750 mL (08:00) ?? Urine Count: 1 (14:00) ?? Intake/Output? 09/16 01:56 09/29 07:00 09/28 07:00 09/27 07:00 09/26 07:00 ?? 09/29 09:40 09/29 09:40 09/29 06:59 09/28 06:59 09/27 06:59 Intake ? 6408.3 ?360 ?360 ?600 ?120 Output ?68801 ? 1750 ?0 ? 2000 ?900 Net Total ? -51887.7 ?-1390 ?360 ?-1400 ? -780 ? Urine Count ? 12 ?0 ?3 ?7 ?2 ? Physical Exam General: NAD, AAOx4 HEENT: NCAT, MMM Neck: no JVD, neck supple Cardio: normal S1 snd S2, no MRG, RRR Resp: CTAB Abdo:??NT, ND Extremities: No peripheral edema Skin: No rashes or other abnormalities Neuro: Grossly intact ?? BLOOD COUNT & DIFF WBC 5.2 k/mm3 ()?? 09/29/2024 07:00 RBC 3.70 m/mm3 (Low)?? 09/29/2024 07:00 Hgb 9.7 Gm/dL (Low)?? 09/29/2024 07:00 Hct 30.3 % (Low)?? 09/29/2024 07:00 MCV 81.9 femtoliters ()?? 09/29/2024 07:00 MCH 26.2 pg (Low)?? 09/29/2024 07:00 MCHC 32.0 Gm/dL (Low)?? 09/29/2024 07:00 Platelet Count 334 k/mm3 ()?? 09/29/2024 07:00 RDW-SD 44.6 femtoliters ()?? 09/29/2024 07:00 MPV 9.2 femtoliters (Low)?? 09/29/2024 07:00 Nucleated RBC (Automated) 0.0 #/100 WBC'S ()?? 09/29/2024 07:00 Abs. NRBC 0.0 k/mm3 ()?? 09/29/2024 07:00 ?? CHEM GENERAL Sodium 135 mmol/L ()?? 09/29/2024 07:00 Potassium 5.0 mmol/L ()?? 09/29/2024 07:00 Chloride 103 mmol/L ()?? 09/29/2024 07:00 Bicarbonate Level 15 mmol/L (Low)?? 09/29/2024 07:00 Anion Gap 17 mmol/L ()?? 09/29/2024 07:00 Glucose Level 111 mg/dL (High)?? 09/29/2024 07:00 Glucose, POC 100 mg/dL (High)?? 09/29/2024 06:12 BUN 69 mg/dL (High)?? 09/29/2024 07:00 Creatinine-Blood 3.89 mg/dL (High)?? 09/29/2024 07:00 Estimated GFR Creatinine 13 ML/MIN/1.73 M2 ()?? 09/29/2024 07:00 Calcium 10.0 mg/dL ()?? 09/29/2024 07:00 Phosphorus 6.0 mg/dL (High)?? 09/29/2024 07:00 Magnesium 1.8 mg/dL ()?? 09/29/2024 07:00 ?? URINE OTHER Est Creatinine Clearance 13.51 mL/min ()?? 09/29/2024 07:46 ?? No qualifying data available ? Assessment/Plan Ms. Hanna is a 53 year-old female with??a past medical history of??T2DM with neuropathy, hypothyroidism, hypertension, hyperlipidemia, vitamin D deficiency who was initially transferred 09/15 from [facility] cardiac arrest and septic shock requiring intubation to MICU with course complicated by pneumonia, pulmonary edema, ABELARDO, and new cardiomyopathy. Patient extubated 09/17 with persistent non-oliguric stage III ABELARDO slowly recovering.?? We have been consulted in order to help manage her ABELARDO. ?? 1. Non-Oliguric ABELARDO - in the setting of PEA for 14 minutes I think this is more than likely ischemic ATN with slow recovery - improving renal function function?? - dosing meds for eGFR < 15 mL/min ?? Plan - renal function is stable and improving - no indication for renal replacement therapy?? -??continue??sodium bicarb 650 mg TID ? Case discussed with Dr. Qursehi. Thank you for allowing us to participate in your patient's care. ?? Karissa Martinez [facility]- [facility] [place]?? * Dylon Whittington DO: PERFORM Event Display: Progress Note Hospital Authored Date: I have seen and evaluated the patient in conjunction with the advanced practitioner. I have personally examined the patient, reviewed their history, confirmed the above findings, and agree with the impressions and recommendations of the advanced practitioner.?? Consult note * Adelia Becker MD: PERFORM Event Display: Consultation Note Authored Date: Patient: ??MARLI HANNA ? Age:??53 Years?Sex:??Female?:??1970? Hypothyroidism Patient is a 53?? yo F with pmhx??T2DM with neuropathy, hypothyroidism,??hypertension, hyperlipidemia, vitamin D deficiency who was initially transferred 09/15 from[facility]/p cardiac arrest and septic shock requiring intubation, course complicated by pneumonia, pulmonary edema, abelardo,??and new cardiomyopathy. Patient was??extubated 09/17 and transferred to medical floors.?Endocrinology is consulted??for history of hypothyroidism with elevated TSH. ?? Patient is has a history of hypothyroidism and appears to be on levothyroxine 137 mcg??daily which she has been getting throughout her admission. ??She is currently??vitally stable with no evidence of hypothermia, bradycardia??or hyponatremia. TFTs from today show a TSH of 28, free T4 1.04. ??TSH on admission a week ago was 19, Free T4 1.24. Cardiac arrest likely not related to hypothyroidism given normal Free t4, however given the fact that patient came with??a high TSH we will increase the dose??slightly??with need for repeat TFTs in 4to 6 weeks outpatient. ?? Plan: -Increase levothyroxine to 150 mcg daily -Repeat TFTs??in 4 to 6 weeks outpatient ?? Full consult note to follow tomorrow Discussed with Dr. Cristina Becker MD PGY-4 Endocrinology, Diabetes and Metabolism? * Letty Evans MD: PERFORM Event Display: Consultation Note Authored Date: ?I have discussed the case and its management with the fellow ??and agree with the findings and plan as documented in the fellow s note. * Benito Mobley MD: PERFORM Event Display: Consultation Note Authored Date: [id number] Patient: ??MARLI HANNA ? Age:??53 Years?Sex:??Female?:??1970?? dictation software was used do not hesitate to contact for any questions related to possible errors SUBJECTIVE Marli Hanna is a 53-year-old lady with no known CKD??for whom nephrology has been consulted for??stage 3 ABELARDO. ?? She presented??after??PEA??requiring 40 minutes of CPR??and improvement of receiving tenecteplase.?? After ROSC??an echocardiogram was performed showing??wall hypokinesis with an ejection fraction of 25??to 30%. CT of the chest??showed possible pulmonary edema versus aspiration??and of course her creatinine today has increased to??5.5. She however has made 3 L worth of urine in the past 24 hours??nephrology has been consulted for??her ABELARDO ?? OBJECTIVE?? GENERAL aox4? MSK/SKIN/EXT no LE ??pitting edema ??No Castelan?DIALYSIS ACCESS??No access ?? Labs??(Last four charted values) WBC ?5.0?(SEP 19)?5.8?(SEP 18)?7.1?(SEP 17)?8.5?(SEP 16) Hgb ?L??9.7?(SEP 19)?L??9.4?(SEP 18)?L??10.2?(SEP 17)?12.0?(BRADEN 16) Hct ?37?(SEP 16)?L??31.1?(SEP 19)?L??29.1?(SEP 18)?L??31.5?(SEP 17) Plt ?197?(SEP 19)?207?(SEP 18)?209?(SEP 17)?343?(SEP 16) Na ?140?(SEP 19)?139?(SEP 18)?136?(SEP 18)?137?(SEP 17) K ?5.0?(SEP 19)?4.4?(SEP 18)?4.9?(SEP 18)?5.0?(SEP 17) Cr ?H??5.55?(SEP 19)?H??5.16?(SEP 18)?H??4.77?(SEP 18)?H??3.51?(SEP 17) BUN ?H??57?(SEP 19)?H??54?(SEP 18)?H??48?(SEP 18)?H??41?(SEP 17) Glucose ?H??126?(SEP 19)?H??109?(SEP 18)?H??116?(SEP 18)?H??108?(SEP 17) Glucose Random ?H??136?(SEP 19)?H??123?(SEP 19)?H??111?(SEP 19)?H??140?(SEP 18) Mg ?2.2?(SEP 18)?2.1?(SEP 17)?2.3?(SEP 17)?1.6?(SEP 16) Phos ?H??7.8?(SEP 19)?H??8.1?(SEP 18)?H??6.8?(SEP 17)?H??4.9?(SEP 17) INR ?H??1.2?(SEP 16) ?? ASSESSMENT 53-year-old lady with no known history of CKD??who nephrology has been consulted for stage 3 ABELARDO ?? stage 3 abelardo In the setting of??PEA for 14 minutes??I think this is more than likely ischemic ATN??though after liters of urine she appears to be in a polyuric phase.?? Because she does not have any crazy electrolyte abnormalities??or??any??obligate volume requirements??to hold off due to the renal replacement therapy and continue to trend her creatinine ?? PLAN daily bmp no indication for volume or??renal replacement therapy? * Maryann FONSECA, Rosamaria: PERFORM, MODIFY Event Display: Consultation Note Authored Date: Patient: ??MARLI HANNA ? Age:??53 Years?Sex:??Female?:??1970?? Indication for Consult cardiac arrest, septic shock History of Present Illness/Interval History Consultation requested for: Cardiomyopathy Consultation requested by: Sunitha FONSECA [facility] Primary gun striper: None Consulting gun striper: Dr. Adams ? 53-year-old female with history of type 2 diabetes with neuropathy, hypertension, hyperlipidemia, hypothyroidism, vitamin D deficiency, obesity who presented to [facility] as a transfer from outside hospital s/p cardiac arrest s/p TNK.?? Cardiology has been consulted for new cardiomyopathy seen on echocard iogram ? As per ED/EMS/ICU documentation: Patient developed sudden onset shortness of breath, she was helped into the car and came into the ED while in the emergency department she became unresponsive and pulseless.?? CPR was done for approximately 14 minutes with 1 epi.?? And there is some report that TNK was given at outside hospital (norecords available in the system for what indication).?? Patient was transferred to [facility] where she required vasopressor support for a little bit, initially she was cooled however later on patient was following commands.?? Today patient was extubated initially to BiPAP and then to nasal cannula. Patient had an echocardiogram done yesterday that showed LVEF of 25 to 30% with global hypokinesis and abnormal septal motion consistent with left bundle branch block..?? Her initial EKG showed normal sinus rhythm with a left bundle branch block and some T wave changes in the lateral leads. ?? We spoke to patient today after she had been extubated Patient reports that she does not have any cardiac history, she did have palpitations a few days ago and some dizziness otherwise no chest pain or shortness of breath.?? Yesterday after she came backfrom latter-day she developed significant shortness of breath and she is unable to recall what happenednext however she denied chest pain, palpitations or any other symptoms during this episode. She was previously told by her PCP that on EKG something was abnormal and she was referred for an echocardiogram. Otherwise as per external review it appears she is on Trulicity, amlodipine, levothyroxine, metformin, lisinopril and metoprolol. ?? At bedside she is refusing any chest pain and overall feels better.?? Patient denies??any??smoking, marijuana use, alcohol use. ??No family history of??premature coronary artery disease Review of Systems An extensive review of system was conducted and everything was negative except ones mentioned above Physical Exam Vitals & Measurements T:??100.0?F?? HR:??112??(Monitored)?? RR:??24?? BP:??134/83?? BP:??163/73(Line)?? SpO2:??97%?? HT:??158??cm?? WT:??97.3??kg?? BMI:??40.14?? Weight lb/oz: 214 lb 8 oz General: Patient in no acute distress.?? HEENT: normocephalic, atraumatic Respiratory: bilateral equal air entry, clear to auscultation with no wheezes or crackles. CVS: Sinus tachycardia. ??No JVD. ??No murmurs Abdomen: soft, non tender, non distended, bowel sounds present, no organomegaly.?? Extremities: no cyanosis, pulses present and equal bilaterally. . No edema noted b/l.?? Neuro: alert and oriented x3. Cranial nerves II-XII grossly intact. Moving all extremities spontaneously. Normal tones, following simple commands.?? . ??No murmurs Intake and Output Today's Output Total? 1625?? Today's Urine Catheter? 1625?? Today's Balance?-1625?? Yesterday's Intake Total?192?? Yesterday's Output Total? 3380?? Yesterday's Urine Catheter? 3380?? Yesterday's Balance?-3188?? Clinical Range's Intake Total? 1435?? Clinical Range's Output Total? 5438?? Clinical Range's Total NG Output?100?? Clinical Range's Total Urine Catheter? 5338?? Clinical Range's Balance ?-4003?? Assessment/Plan 1.??Cardiomyopathy Cardiac arrest s/p ROSC??(received TNK/unknown indication) now extubated Left bundle branch block on EKG??(unclear if this is new or old) History of hypertension/type 2 diabetes Patient??with history of hypertension??and type 2 diabetes??presenting??after a cardiac arrest??(CPR 30 minutes, received TNK,??unsure??what the indication was).?? Initially there was concern of septic shock??and she required Levophed, she has been weaned off of??vasopressor. ??She is Staph aureus positive otherwise??no infectious etiology has been identified so far. It appears from her history??she had??sudden onset shortness of breath,??was brought into the ED??where she had??cardiac arrest??which was presumably PEA,??she also received TNK??which is unclear forwhat reason. Her EKG at [facility] shows??a left bundle branch block??(patient does report she had an EKG done at her PCP which she was told was??abnormal and an echocardiogram was ordered at that time, she is unable torecall what condition it was). She had only mildly elevated troponin in 200. ??Patient denied any chest pain??prior to this episode??however did endorse??some ongoing??palpitations??and exertional shortness of breath. Her echo??showing new cardiomyopathy??which is more global without any wall motion. ?? Assessment: Unclear what prompted??patient's cardiac arrest,??not sure if this was??an acute IL??shaista troponin was only 2000 and patient did not have any chest pain.?? She does have a left bundle branch block??however??patient reports she had an abnormal EKG in the past??([facility]/PCP).??Do not suspect this was??ACS??his cardiac arrest was PEA and not VT/V-fib. She has a cardiomyopathy with EF of 20 to 25% and a left bundle branch block, unclear if she has depressed EF??post??cardiac arrest??or if this has been ongoing for some time. Her risk factors for CAD include hypertension, type 2 diabetes and obesity ? Recommendation -Continue ICU care as you are doing -Once patient is stabilized and out of the ICU??we will decide on further ischemic workup.?CT coronaries versus??cardiac cath. ??Her creatinine needs to improved??before further workup is done. -Once stabilized??will initiate patient on GDMT -No evidence of volume overload right now -We will continue to follow patient??along with you -Continue color television console monitor -Check lipid panel and A1c ??? Patient will probably need Zio patch on discharge??to monitor for arrhythmias ?? Case discussed with Dr. Adams Allergies shellfish Home Medications Amlodipine: TAKE 1 TABLET BY MOUTH TWICE A DAY dulaglutide: INJECT 1 PEN SUBCUTANEOUSLY ONCE A WEEK Levothyroxine: TAKE 1 TABLET BY MOUTH EVERY DAY Lisinopril: TAKE 1 TABLET BY MOUTH EVERY DAY Metformin: TAKE 2 TABLETS BY MOUTH TWICE A DAY Metoprolol: TAKE 1 TABLET BY MOUTH TWICE A DAY Hospital Medications Medications (14) Active SCHEDULED: (6) Albuterol 0.083% Inhalation Solution (Albuterol 0.083% inhalation karen) ??2.5 mg 3 mL, BAND Nebulizer, 4 times a day Ceftriaxone 1 Gm Inj (Ceftriaxone Inj) ??1 Gm, IVPB, Every 24 hours Famotidine 10 mg/mL Inj (Famotidine Inj) ??20 mg 2 mL, IV Push Slowly, Every 24 hours Heparin 5000 units/mL Inj (1 mL) (Heparin Inj) ??5,000 units 1 mL, Subcutaneous Injection, 3 times a day Insulin Lispro 100 units/mL Inj (Insulin LISPRO Sliding Scale) ??2-10 units, Subcutaneous Injection, 3 times a day before meals Levothyroxine 137 mcg Tablet (levothyroxine 0.137 mg oral tablet) ??137 mcg, Orogastric Tube, Daily CONTINUOUS: (6) Fentanyl 1000mcg/100mL NaCL 1,000 mcg (FENTanyl 1000mcg / 100mL NaCl 1,000 mcg) ??1,000 mcg 100 mL,IV Infusion Insulin R 100 units in 100 mL NaCL 100 units [1 units/hr] + NaCL 0.9% Premixed IV 100 mL (Insulin R100 units in 100 mL Premix 100 units [1 units/hr] + NaCL 0.9% Premixed IV 100 mL) ??100 mL, IV Infusion, 1 mL/hr NaCL 0.9% (1000 mL) Cont IV 500 mL (NaCL 0.9% Bolus 500 mL) ??500 mL, IV Infusion Nitroglycerin 100 mg Cont IV 100 mg (Nitroglycerin 100 mg/250 mL D5W 100 mg) ??100 mg 250 mL, IV Infusion NORepinephrine 4mg / 250mL D5W 4 mg (Levophed 4 mg / D5W 250 mL 4 mg) ??4 mg 250 mL, IV Infusion Propofol 10mg/mL Cont IV (100mL) 1000 mg (Propofol 1% /100 mL 1000 mg) ??1,000 mg 100 mL, IV Infusion PRN: (2) Acetaminophen 325 mg Tablet (Tylenol 325 mg oral tablet) ??650 mg, By Mouth, Every 4 hours FENTanyl 50 mcg/mL Inj (2 mL) (FENTanyl Inj) ??25 mcg 0.5 mL, IV Push Slowly, Every 2 hours Lab Results Cardiology Labs Blood Count & Diff?? COAG?? General Chemistry?? Cardiac?? Endocrine/Tumor Marker?? WBC: 5.8 k/mm3 (09/18/24) INR:??1.2??High (09/16/24) Sodium: 139 mmol/L (09/18/24) Bilirubin, Total: 0.9 mg/dL (09/16/24) Free T4: 1.24 ng/dL (09/16/24) RBC:??3.56 m/mm3??Low (09/18/24) Protime (PT):??12.3 seconds??High (09/16/24) Potassium: 4.4 mmol/L (09/18/24) ? Hgb:??9.4 Gm/dL??Low (09/18/24) APTT: 23.8 seconds (09/16/24) Chloride: 101 mmol/L (09/18/24) ? Hct:??29.1 %??Low (09/18/24) ?? Bicarbonate Level:??17 mmol/L??Low (09/18/24) ? MCV: 81.7 femtoliters (09/18/24) ?? Anion Gap:??21??High (09/18/24) ? Platelet Count: 207 k/mm3 (09/18/24) ?? Glucose Level:??109 mg/dL??High (09/18/24) ? BUN:??54 mg/dL??High (09/18/24) ? Creatinine-Blood:??5.16 mg/dL??High (09/18/24) ? Estimated GFR Creatinine: 9 ML/MIN/1.73 M2 (09/18/24) ? Calcium: 9 mg/dL (09/18/24) ? Magnesium: 2.2 mg/dL (09/18/24) ? Protein, Total: 6.8 Gm/dL (09/16/24) ? Albumin:??3.3 Gm/dL??Low (09/16/24) ? Alkaline Phosphatase: 72 units/L (09/16/24) ? AST (SGOT):??93 units/L??High (09/16/24) ? ALT (SGPT):??57 units/L??High (09/16/24) ? Diagnostic Impression ECG ECG 12-Lead ?? 08:18:39 Please click on pdf link to open report ?? Signed By: Nicol FONSECA, Randall López ?? ECG 12-Lead ?? 08:18:39 Ventricular Rate: 105 BPM Atrial Rate: 105 BPM P-R Interval: 152 ms QRS Duration: 138 ms Q-T Interval: 398 ms QTC Calculation(Bazett): 526 ms P [place]: 34 degrees R [place]: 14 degrees T [place]: 233 degrees Sinus tachycardia with occasional Premature ventricular complexes and Fusion complexes Left bundle branch block Minimal voltage criteria for LVH, may be normal variant ( [place] product ) Possible Anterolateral infarct , age undetermined T wave abnormality, consider inferior ischemia Abnormal ECG When compared with ECG of 16-Sep-2024 09:48, Premature ventricular complexes are now Present T wave inversion now evident in Inferior leads Confirmed ?? Signed By: Randall Camarena MD Stress Test No qualifying data available. Echo Echocardiogram - Complete ?? 15:11:20 Summary 1) The LV systolic function is severely reduced. The left ventricular ejection fraction is 25-30%. There is global hypokinesis of the left ventricle. There is abnormal septal motion consistent with LBBB. 2) The left ventricular wall thickness is mildly increased. 3) The right ventricle is normal in size and function. 4) An agitated saline study (bubble study) was performed and was normal at rest and with Valsalva. There is no evidence of right to left shunting. 5) No significant valvular abnormalities. ?? Comparison No prior study available for comparison. ?? Signature ?? Signed By: Brandon Adams MD Problem List/Past Medical History Ongoing Severe obesity Procedure/Surgical History No qualifying data available. Social History Tobacco Use: Never smoker. Family History No family history recorded. * Brandon Adams MD: PERFORM Event Display: Consultation Note Authored Date: [id number] Attending Attestation:??I have seen and evaluated this patient on the date of service. ??I have discussed the case and its management with the fellow and agree with the findings and plan as documented in the fellow???s note.? 53-year-old with type 2 diabetes, hypertension??initially presented to an outside hospital with acute shortness of breath??and then??had an arrest??(reportedly PEA). ??Was resuscitated??and??may havereceived TNK.?? Admitted to the MICU underwent echocardiogram which showed LVEF 30% with septal dyssynchrony. ??She has done well in the MICU is currently off pressors and??has been extubated awake and alert. ?? In reviewing her echocardiogram, unclear if this is related to post resuscitation.?? It does not appear classic for stress cardiomyopathy. ??The septal dyssynchrony is more than??one would expect??for her LBBB??(which is not particularly wide).?? Also, her arrest does not sound to be??cardiac per se although was not really clear in etiology and she does have several risk factors.?? On exam, she does not appear to be??in??heart failure, nor is there any concern for low cardiac output. ?? In terms of diagnostic workup, additional evaluation??of her coronaries??would be appropriate givenher risk factors.?? She may be a good candidate??for a cardiac??CT, once her acute kidney injury??has resolved.?Also would favor??repeating an echocardiogram limited in a few days to see??if??there is improvement in??LV function.?? Would recommend outpatient ZIO as well. ??Further recommendations??will??be depending on her clinical course and diagnostic results. ?? In regard to medical therapy given that she was just extubated on pressors would not start anythingtoday.?? Once she is stable would initiate low-dose beta- edi. ??Would hold off on??THOMAS/ARB??at this time given acute??kidney injury. ?? Brandon Adams MD [address] , [address] [place] [address] [address] [facility], [address], [place], [place] [id number] [phone] ([phone])?? Radiology * Event Display: NM Myocard Perf SPECT Multi Authored Date: [id number] Myocardial Perfusion Imaging Demographics Patient Name ADÁN LE Gender Female Corporate Race Unknown Facility Room Number [id number] Height 62.2 inches Date of 1970 Weight 214.5 pounds Age 53 year(s) BSA 1.97 m2 Accession Number [id number] BMI 38.98 kg/m2 Date of study 09/22/2024 Resident Referring Physician Lopez Scott Fellow Danielito Carrasco MD Interpreting St Kerri CORTEZ Technologist Hipolito Carvalho Physician Procedure Procedure Type: Myocardial Perfusion Imaging:NM Myocardial Perfusion Spect Multi Indications: Chest pain. Stress Protocols Resting ECG Sinus rhythm. Left Bundle Branch Block. Resting HR:98 bpm Resting BP:124/68 mmHg Pre-stress physical exam: The patient's medications include Heparin, Albuterol, Famotidine, Levothyroxine, Tylenol, Insulin and were not held prior to the test. Stress Protocol:Pharmacologic - IV Regadenoson Dose: 0.4 mg Peak HR:121 bpm HR response: Not assessed Peak BP:154/62 mmHg (pharmacologic study) Predicted HR: 168 bpm HR recovery: Not Assessed % of predicted HR: 72 (Pharmacologic Study) BP response: Normal resting BP with Reason for termination:Protocol complete appropriate response Functional capacity:Not assessed HR/BP product:[id number] Chest pain:No chest pain ST Changes:No changes from baseline Arrhythmias No arrhythmias. Stress Interpretation Pharmacologic study only. Physiologic response not assessed - pharm stress. EKG nondiagnostic LBBB. Imaging Protocols - One Day Rest Stress Isotope:Tc99m Sestamibi Isotope: Tc99m Sestamibi Isotope dose:11.6 mCi IV Isotope dose:33.2 mCi IV Date:09/22/2024 Date:09/22/2024 Time to Rest Imagin minutes Time to Stress Imagin minutes Technique: Gated Technique: Gated Supine Supine Imaging Results Study artifacts 1) Breast attenuation Summed scores - Summed stress score: 10 - Summed rest score: 8 - Summed difference score: 2 Rest ejection Stress ejection Ejection fraction:25 % Ejection fraction:26 % EDV :146 ml EDV :191 ml ESV :109 ml ESV :142 ml Stroke volume :37 ml Stroke volume :49 ml LV mass :159 gr LV mass :201 gr Conclusions Summary 1. Myocardial perfusion imaging is abnormal after Regadenoson stress test. There is a medium sized moderate intensity mostly fixed defect of the mid-inferior, basal inferior haq and apical inferior haq likely representing scar/artifact. 2. LV function is abnormal with diffuse hypokinesis and an E.F. of 25 % at rest and 26% with stress. 3. EKG portion of the stress test is reported separately. This procedure is not being performed on this patient for preoperative evaluation for low-risk surgery within 30 days. Signatures * Event Display: NM Myocard Perf SPECT Multi Authored Date: Patient Care team information Care Team Personnel Name: Srinivasan Juarez RN Position: [facility] RN Member Role: Primary Care Nurse Name: Melinda Doe RN Position: S RN Member Role: Primary Care Nurse Name: Cassy Plata RN Position: S RN Member Role: Primary Care Nurse Name: Josue Rosas LPN Position: S RN Member Role: Primary Care Nurse Name: Karissa Martinez NP Position: S Associate Professional Member Role: Lifetime Consulting Provider Address: [address] [place] [address] [facility] [place], [place] [address] Telecom: Name: Jason Qureshi MD Position: [facility] Renal MD Member Role: Lifetime Consulting Physician Address: [address] [place], [place] [address] [place], [place] [address] Telecom: Name: Naman Caldera MD Position: Reference Physician Member Role: PCP Address: [address] [place] [address]- [place] Telecom: Name: Dylon Whittington DO Position: [facility] Renal MD Member Role: Lifetime Consulting Physician Address: [address] [facility] [place] [address]- [place] Telecom: Name: Oxana Odom RN Position: S RN Member Role: Primary Care Nurse Name: Willian Luo RN Position: S RN Member Role: Primary Care Nurse Name: Kaylee Chan LPN Position: S RN Member Role: Primary Care Nurse Name: Marlon Duarte RN Position: S RN Member Role: Primary Care Nurse Name: Susan Neff RN Position: S RN Member Role: Primary Care Nurse Name: Florencia Dyson RN, Heather Sadler Position: S RN Member Role: Primary Care Nurse Name: Roberto Huston RN Position: S RN Member Role: Primary Care Nurse Care Team Related Persons Name: MARLI LUU Insurance Providers Guarantor name: LEENA Health Plan Information #: 1 Payer: [employer] Member Number: [id number] Policy Number: NA Group Number: [id number] Health Plan Information #: 2 Payer: S[employer]URANCE Member Number: [id number] Policy Number: NA Group Number: NA
--- OUTSIDE RECORDS SUMMARY | 2024-10-11 12:55 | XMS_ITS | Clinical Summary ---
Author Organization [facility] Address [address] [place] [address] Phone Care Team Providers Care Tram Driver Name Role Phone Phill Banuelos MD Primary Care Provider Allergies Active Allergy Reactions Criticality Noted Date Comments Shellfish Allergy Other (see comments) 03/08/20 21 Medications amLODIPine (NORVASC) 10 MG tablet Take 1 tablet by mouth 2 (two) times a day Active atorvastatin (LIPITOR) 80 MG tablet Take 1 tablet by mouth 1 (one) time each day Active levothyroxine sodium (TIROSINT) 125 MCG capsule Take 1 tablet by mouth 1 (one) time each day Active lisinopril 40 MG tablet Take 1 tablet by mouth 1 (one) time each day Active metFORMIN XR (GLUCOPHAGE-XR) 500 MG 24 hr tablet Take 2 tablets by mouth 2 (two) times a day Active metoprolol tartrate (LOPRESSOR) 100 MG tablet Take 1 tablet by mouth 2 (two) times a day Active omeprazole (PriLOSEC) [address] capsule Take 1 capsule by mouth 1 (one) time each day Active chlorthalidone 25 MG tablet Take 1 tablet (25 mg total) by mouth 1 (one) time each day 90 tablet 3 1 Active Blood Pressure Monitor kit 1 kit 1 (one) time each day 1 kit 1 Active Invokana 100 MG tabletIndications :Renal disorder due to type 2 diabetes mellitus <Diabetic nephropathy> (HCC),Persistent proteinuria,Essen tial hypertension TAKE 1 TABLET BY MOUTH DAILY 90 tablet 2 2 Active Trulicity 1.5 MG/0.5ML solution pen-injector Inject 1 pen under the skin per week 2 Active Active Problems Problem Noted Date Diagnosed Date Chronic kidney disease, stage 2 (mild) 1 Proteinuria 04/26/2021 Anemia 03/08/2021 Essential hypertension 03/08/2021 Renal disorder due to type 2 diabetes mellitus 0 03/08/2021 Resolved Problems Problem Noted Date Diagnosed Date Resolved Date Hypothyroidism 03/08/2021 04/24/2021 Type 2 diabetes mellitus 03/08/2021 Family History Medical History Relation Comments Cancer Mother Kidney disease Mother Hypertension Sibling 1 Diabetes Sibling 2 Relation Status Comments Mother Alive Sibling 1 Sibling 2 Social History Tobacco Use Types Packs/Day Years Used Date Smoking Tobacco: Never Smokeless Tobacco: Never Alcohol Use Standard Drinks/Week Comments No 0 (1 standard drink = 0.6 oz pur e alcohol) Comments Unknown Sex and Gender Information Value Date Recorded Sex Assigned at Not on file Legal Sex Female 4:55 PM EST Gender Identity Not on file Sexual Orientation Not on file Last Filed Vital Signs Vital Sign Reading Time Taken Comments Blood Pressure 122/80 06/11/2022 11:03 AM EDT Pulse 74 06/11/2022 11:03 AM EDT Temperature - - Respiratory Rate - - Oxygen Saturation 98% 06/11/2022 11:03 AM EDT Inhaled Oxygen Concentration - - Weight 91.2 kg (201 lb) 06/11/2022 11:03 AM EDT Height 154.9 cm (5' 1 ) 08/16/2019 12:00 PM EST Body Mass Index 37.98 08/16/2019 12:00 PM EST Plan of Treatment Health Maintenance Due Date Last Done Comments Breast Cancer Screening 1970 Pneumococcal Vaccine: Pediat rics (0 to 5 Years) and At-Risk Patients (6 to 64 Years) (1 of 2 - PCV) 1977 Hepatitis B Vaccine (1 of 3 - 19+ 3-dose series) 1990 Colorectal Cancer Screening: Annual FOBT 2020 Colorectal Cancer Screening: Colonoscopy 2020 Colorectal Cancer Screening: Sigmoidoscopy 2020 Diabetes: Ophthalmology Exam 10/02/2020 Diabetes: Pedal Pulse Checked 10/02/2020 Diabetes: Sensory Foot Exam 10/02/2020 Diabetes: Visual Foot Exam 10/02/2020 Diabetes: Hemoglobin A1C 04/23/2022 022, 09/28/2020, 04/14/2019 Influenza Vaccine (#1) 2024 Procedures Procedure Name Priority Date/Time Associated Diagnosis Comments EXT RESULT ENTRY Routine 01/21/2022 from Last 3 Months or Most Recently Relevant to Health Maintenance Results * (ABNORMAL) EXT RESULT ENTRY (01/21/2022) Sodium 133(A) 137 - 147 Potassium 4.9 3.4 - 5.5 Chloride 99.0 99.0 - 108.0 Anion Gap 13 <=30 MMOL/L BUN 15 4 - 21 mg/dL Creatinine 1.19(A) 0.50 - 1.10 mg/dL Calcium 10.1 8.7 - 10.7 mg/dL eGFR Non-Afr [place] 48 Magnesium 1.6 1.6 - 2.4 Hemoglobin A1C 11.5(A) 4.0 - 6.0 01/21/2022 Historical Provider LAB BLOOD ORDERABLES Amarilis l Result from Last 3 Months or Most Recently Relevant to Health Maintenance Insurance MEDICAID MEDICAID [facility] MEDICAID Care Teams Tram Driver Relationship Specialty Start Date End Date Phill Banuelos MD [address] [place], [place] PCP - General Internal Medicine 04/26/21
--- OUTSIDE RECORDS SUMMARY | 2024-10-11 12:55 | XMS_ITS | Clinical Summary ---
Author Organization [facility] Address [address] [place] [address] Care Team Providers Care Security Flex Officer Name Role Phone Unavailable Primary Care Provider Unavailabl e Encounters Date Type Department Care Team Description 09/16/2024 1:41 AM EST - 09/16/2024 11:59 PM EST Hospital Encounter [facility] [address] [place] [address] Forest Henry MD Discharge Disposition: Home or Self Care from Last 3 Months Social History Tobacco Use Types Packs/Day Years Used Date Smoking Tobacco: Never Assessed Sex and Gender Information Value Date Recorded Sex Assigned at Not on file Gender Identity Not on file Sexual Orientation Not on file Plan of Treatment Health Maintenance Due Date Last Done Comments Hepatitis C Virus Screening 1970 HIV Screening 1984 DTaP/Tdap/Td Vaccines (1 - Tdap) 1990 Hepatitis B Vaccines (1 of 3 - 19+ 3-dose series) 09/03 Pap Smear (Ages 21-65) 1992 Mammogram 2011 Colonoscopy 2016 Pneumococcal Vaccines 50+ (1 of 1 - PCV) 2021 Zoster (Shingles) Vaccine (1 of 2) 2021 Influenza Vaccine 04/01/2024 COVID-19 Vaccine ( - 2023-25 season) 2024
--- OUTSIDE RECORDS SUMMARY | 2024-10-11 12:55 | XMS_ITS | Encounter Summary ---
Author Organization [facility] Address [address] [place] [address] Care Team Providers Care Portrait Artist Name Role Phone Unavailable Primary Care Provider Unavailabl e Encounter Details Date Type Department Care Team (Latest Contact Info) Description 09/16/2024 1:41 AM EST - 09/16/2024 11:59 PM [facility] Hospital Encounter [facility] [address] [place] [address] Forest Henry MD [address] [facility] [address] [place] [address] Discharge Disposition: Home or Self Care Social History Tobacco Use Types Packs/Day Years Used Date Smoking Tobacco: Never Assessed Sex and Gender Information Value Date Recorded Sex Assigned at Not on file Gender Identity Not on file Sexual Orientation Not on file documented as of this encounter Plan of Treatment Not on file documented as of this encounter Visit Diagnoses Not on filedocumented in this encounter
[2024-10-11 12:57] LABS: Bacteria Urine 1+ (None Seen); Basophils Percent Auto 0.2 % (0-2); Eosinophils Percent Auto 0.2 % (0-4); Hematocrit 32.2 % (37.0-47.0); Hemoglobin 10.3 g/dl (12.0-16.0); Hyaline Casts Urine 0-2 /LPF (0-2); Imm Gran Abs Auto 0.01 X10*3/uL (0.00-0.03); Imm Gran Pct Auto 0.2 % (0.0-0.4); Lymphocytes Absolute Auto 1.2 X10*3/uL (1.2-4.9); Lymphocytes Percent Auto 21.9 % (20-40); Mean Corpuscular Hemoglobin 26.9 pg (27.0-33.0); Mean Corpuscular Volume 84.1 fL (80.0-98.0); Mean Platelet Volume 9.4 fL (9.4-12.3); Monocytes Absolute Auto 0.5 X10*3/uL (0.1-1.2); Monocytes Percent Auto 8.8 % (2-11); Neutrophils Absolute Auto 3.6 x10*3/uL (2.0-8.3); Neutrophils Percent Auto 68.7 % (45-73); Platelet Count 294 X10*3/uL (160-400); RBC Urine 0-2 /HPF (0-2); Red Blood Count 3.83 X10*6/uL (4.20-5.50); Red Cell Distribution Width 15.2 % (11.0-16.0)
[2024-10-11 12:58] LABS: White Blood Count 5.3 X10*3/uL (4.8-10.8)
[2024-10-11 12:59] LABS: Estimated Average Glucose 137 mg/dL; Hemoglobin A1C 123.7872 umol/L; Hemoglobin A1c % 6.4 % (<6.0); Total Hemoglobin (HGBA1C) 2643.7894 umol/L
[2024-10-11 13:08] LABS: Alanine Aminotransferase 7 U/L (0-31); Albumin Level 4.1 g/dL (3.5-5.0); Alkaline Phosphatase 58 U/L (39-117); Anion Gap 13 (12-20); Aspartate Amino Transferase 19 U/L (5-31); Bilirubin Total 0.4 mg/dL (0.0-1.0); Blood Urea Nitrogen 42 mg/dL (9-16); Calcium 10.1 mg/dL (8.4-10.2); Carbon Dioxide 22 mmol/L (22-29); Chloride 108 mmol/L (96-108); Estimated Glomerular Filt Rate 26; Glucose Random 113 mg/dL (60-115); Magnesium 1.7 mg/dL (1.6-2.6); Potassium 4.6 mmol/L (3.3-5.1); Sodium 138 mmol/L (135-145); Total Protein 8.8 g/dL (6.5-8.0)
[2024-10-11 13:27] LABS: Thyroid Stimulating Hormone 1.46 uIU/mL (0.32-4.0)
[2024-10-11 13:29] LABS: Creatinine Urine 71.23 mg/dL
[2024-10-11 13:45] LABS: Microalbum/Creatinine Ratio Ur 1521.8 ug/mg cr (<30)
== END 2024-10-11 11:34 | disposition home or self-care (01) ==
LOC: HO.10HDL 11:33
PROVIDERS: Visit Provider Internal Medicine
DX: E11.22 Type 2 diabetes mellitus with diabetic chronic kidney disease (principal); I12.9 Hypertensive chronic kidney disease with stage 1 through stage 4 chronic kidney disease, or unspecified chronic kidney disease; N18.9 Chronic kidney disease, unspecified; K21.9 Gastro-esophageal reflux disease without esophagitis
CPT/HCPCS: 36415; 80053; 81001; 82043; 82570; 83036; 83735; 84443; 85025

== ENCOUNTER 2024-11-09 22:53 | Emergency (ER) | payer OTHER, SELFPAY ==
--- NOTE | 2024-11-09 | ECG_ITS ---
Test Reason : CARDIAC ARREST Blood Pressure : */* mmHG Vent. Rate : 109 BPM Atrial Rate : 109 BPM P-R Int : 162 ms QRS Dur : 140 ms QT Int : 356 ms P-R-T Axes : 51 4 255 degrees QTcB Int : 479 ms Sinus tachycardia Left bundle branch block Abnormal ECG When compared with ECG of 15-Sep-2024 21:38, No significant change was found Referred By: Generic ED Physician Electronically Signed By: INA BERMAN
--- NOTE | ~2024-11-09 | XR_ITS ---
CLINICAL HISTORY: ETT, GT, aspiration 1 view chest x-ray Comparison: CR - XR CHEST 1V - 09/15/24 23:00 EST Findings: Hazy opacities throughout the right lung, similar to prior. No large effusion or pneumothorax. Endotracheal tube tip is at the sarah and directed towards the left mainstem bronchus. Distal gastric tube is below the left hemidiaphragm tip is outside the field of view. Cardiomediastinal silhouette is stable. IMPRESSION: 1. Endotracheal tube tip at sarah, directed towards left mainstem bronchus, recommend retraction by 2-3 cm 2. Right lung hazy opacities. This document has been electronically signed by: Stan Dutta MD on 11/10/2024 00:31:13
--- NOTE | ~2024-11-09 | XR_ITS ---
CLINICAL HISTORY: intubation 1 view chest x-ray. Comparison: CR - XR CHEST 1V - 11/10/24 00:59 EDT Findings: The endotracheal tube is within the proximal left mainstem bronchus. No other interval change from the recent prior study. IMPRESSION: Endotracheal tube is within the proximal left mainstem bronchus. This document has been electronically signed by: Marquis Giraldo MD on 11/10/2024 04:53:38
--- NOTE | ~2024-11-09 | XR_ITS ---
CLINICAL HISTORY: s p attemped right IJ central line , r o pneumo 1 view chest x-ray. Comparison: CR - XR CHEST 1V - 11/09/24 22:33 EDT Findings: Study is mildly limited by overlying external artifact. There is no evidence of a pneumothorax. Endotracheal tube remains at the sarah with tip directed towards the left mainstem bronchus. NG tube passes into the stomach. There are hazy bilateral airspace opacities stable on the right and increased on the left suggestive of pneumonitis or edema. Cardiomediastinal silhouette is stable. IMPRESSION: Findings as above. This document has been electronically signed by: Marquis Giraldo MD on 11/10/2024 01:59:24
[2024-11-09 23:01] LABS: Glucose, Whole Blood 98 mg/dL (60-115)
[2024-11-09] MEDS: Etomidate 20 MG/10 ML VIAL IVPUSH (23:01)
[2024-11-09] MEDS: Rocuronium Bromide 50 MG/5 ML VIAL IVPUSH (23:01)
[2024-11-09] MEDS: propofoL 1,000 MG/100 ML VIAL 16.29 MG IVCONT (23:05)
[2024-11-09 23:17] VITALS: BMI 39.0
[2024-11-09 23:21] VITALS: BP 102/59; PULSE 100; RESP 24; TEMP 36.9; O2SAT 85
[2024-11-09 23:21] LABS: Appearance Urine Clear; Color Urine Yellow; Glucose Urine UA Negative (Negative); Leukocyte Esterase Urine Small (1+) (Negative); Nitrite Urine Negative (Negative); UMIC TRIGGER UACC YES; Urine Blood Negative (Negative); Urine Ketones Negative (Negative); Urine Protein 300 (3+) mg/dL (Neg-Trace)
[2024-11-09 23:22] LABS: Basophils Percent Auto 0.2 % (0-2); Eosinophils Percent Auto 0.1 % (0-4); Hematocrit 38.8 % (37.0-47.0); Hemoglobin 11.8 g/dl (12.0-16.0); Imm Gran Abs Auto 0.14 X10*3/uL (0.00-0.03); Lymphocytes Percent Auto 51.1 % (20-40); MANUAL DIFF FLAG SCAN; Mean Corpuscular HGB Conc 30.4 g/dl (31.0-35.0); Mean Corpuscular Hemoglobin 26.3 pg (27.0-33.0); Mean Corpuscular Volume 86.4 fL (80.0-98.0); Mean Platelet Volume 9.8 fL (9.4-12.3); Monocytes Absolute Auto 1.3 X10*3/uL (0.1-1.2); Monocytes Percent Auto 8.8 % (2-11); Neutrophils Absolute Auto 5.5 x10*3/uL (2.0-8.3); Neutrophils Percent Auto 38.8 % (45-73); Platelet Count 345 X10*3/uL (160-400); Red Blood Count 4.49 X10*6/uL (4.20-5.50); Red Cell Distribution Width 14.5 % (11.0-16.0); SCAN SMEAR FLAG 1; White Blood Count 14.1 X10*3/uL (4.8-10.8)
[2024-11-09 23:23] LABS: Bacteria Urine Trace (None Seen); Hyaline Casts Urine 0-2 /LPF (0-2); RBC Urine 0-2 /HPF (0-2); UACC Culture Trigger YES
[2024-11-09 23:28] LABS: INTERNATIONAL NORM RATIO 1.1 (0.9-1.1); Prothrombin Time 12.4 SEC (10.9-12.4)
[2024-11-09] MEDS: 0.9 % Sodium Chloride 1,000 ML 999 ML IVCONT (23:28)
[2024-11-09 23:30] LABS: Lymphocytes Absolute Auto 7.2 X10*3/uL (1.2-4.9)
[2024-11-09 23:32] LABS: Venous Blood Gas Refer to POC result
[2024-11-09] MEDS: ondansetron HCL 4 MG/2 ML VIAL IVPUSH (23:32)
[2024-11-09 23:33] LABS: VBG Base Excess -17.5 mmol/L; VBG HCO3 14 mmol/L (22-26); VBG pCO2 61 mmHg; VBG pH 6.97 (7.32-7.43); VBG pO2 36 mmHg
[2024-11-09 23:40] LABS: Lactic Acid 8.6 mmol/L (0.5-2.0)
--- OUTSIDE RECORDS SUMMARY | 2024-11-09 23:40 | XMS_ITS ---
Author Name [facility] Organization Unknown Encounters Encounter Type Encounter Reason Primary Diagnosis Location Date Ambulatory Cardiac Arrest Cardiac Arrest [facility] [employer] 09/16/2024 Care Team Organization Name Specialty Phone Email Start Date End [facility] [employer] 10/05/2024 [place] 09/16[place]
--- OUTSIDE RECORDS SUMMARY | 2024-11-09 23:40 | XMS_ITS | Clinical Summary ---
Author Organization [facility] Address [address] [facility] [address] [place] [address] Phone Care Team Providers Care Acid Mixer Name Role Phone Phill Banuelos MD Primary Care Provider [phone] Allergies Active Allergy Reactions Criticality Noted Date [...] 10.1 8.7 - 10.7 mg/dL eGFR Non-Afr [place] 48 Magnesium 1.6 1.6 - 2.4 Hemoglobin A1C 11.5(A) 4.0 - 6.0 01/21/2022 Historical Provider LAB BLOOD ORDERABLES Amarilis l Result from Last 3 Months or Most Recently Relevant to Health Maintenance Insurance MEDICAID MEDICAID [facility] MEDICAID Care Teams Acid Mixer Relationship Specialty Start Date End Date Phill Banuelos MD [id number] [place], [place] PCP - General Internal Medicine 04/26/21
--- OUTSIDE RECORDS SUMMARY | 2024-11-09 23:40 | XMS_ITS | Clinical Summary ---
Author Organization [facility] Address [address] [place] [address] Care Team Providers Care Form Stripper Name Role Phone Unavailable Primary Care Provider Unavailabl e Encounters Date Type Department Care Team Description 09/16/2024 1:41 AM EST - 09/16/2024 11:59 PM EST Hospital Encounter [facility] [address] [place] [address] Forest Henry MD Discharge Disposition: Home or [...]
[2024-11-09 23:42] LABS: B Type Natriuretic Peptide 250 pg/mL (<100)
[2024-11-09 23:43] VITALS: BP 75/43; PULSE 94
[2024-11-09 23:43] LABS: SLIDE REVIEW VERIFIED
[2024-11-09] MEDS: Norepinephrine Bitartrate/D5W 8 MG/250 ML PLAST..BAG 8.48 MG IVCONT (23:43)
[2024-11-09 23:45] LABS: Alanine Aminotransferase 45 U/L (0-31); Albumin Level 3.7 g/dL (3.5-5.0); Alkaline Phosphatase 104 U/L (39-117); Anion Gap 21 (12-20); Aspartate Amino Transferase 43 U/L (5-31); Bilirubin Direct 0.2 mg/dL (0.0-0.5); Bilirubin Total 0.6 mg/dL (0.0-1.0); Blood Urea Nitrogen 27 mg/dL (9-16); Calcium 9.5 mg/dL (8.4-10.2); Carbon Dioxide 14 mmol/L (22-29); Chloride 107 mmol/L (96-108); Creatinine Clr Calc Pharmacy 37.4; Estimated Glomerular Filt Rate 31; Glucose Random 255 mg/dL (60-115); Sodium 138 mmol/L (135-145); Total Protein 8.6 g/dL (6.5-8.0)
[2024-11-09 23:47] LABS: Troponin-I High Sensitivity 24.6 ng/L (<3.5-17.0)
[2024-11-09 23:49] VITALS: BP 84/53; PULSE 96
[2024-11-09 23:54] VITALS: BP 78/50; PULSE 91
[2024-11-10] VITALS (24 sets, daily range): BP systolic 69–137; BP diastolic 40–78; PULSE 80–94; RESP 20–36; TEMP 37.8–38.2; O2SAT 88–98
[2024-11-10] MEDS: Piperacillin Sodium/Tazobactam 3.375 GM in 0.9 % Sodium Chloride 50 ML IV (00:09)
[2024-11-10 00:11] LABS: Influenza A PCR NEGATIVE (Negative); Influenza B PCR NEGATIVE (Negative); Resp Syncy Virus RNA Qual PCR NEGATIVE (Negative); SARS COV2 PCR INHOUSE NEGATIVE (Negative)
[2024-11-10] MEDS: Furosemide 100 MG/10 ML VIAL 80 MG IVPUSH (00:15)
[2024-11-10] MEDS: vancomycin/NS 2,000 MG/500 ML PLAST..BAG 250 MG IV (00:25)
--- NOTE | 2024-11-10 00:38 | PC.NURSE ---
Spoke with Amy from [facility]: ETT at [facility] towards left, recommend retracting 2-3cm. aware
[2024-11-10] MEDS: Midazolam HCl/NS 50 MG/50 ML PLAST..BAG IVCONT (00:45)
[2024-11-10 01:15] LABS: ABG Refer to POC result
[2024-11-10 01:17] LABS: Reflex Lactate? Lactic Acid Added
[2024-11-10 01:22] LABS: ABG Base Excess -9.6 mmol/L; ABG HCO3 15 mmol/L (22-26); ABG pCO2 32 mmHg (32-45); ABG pH 7.28 (7.35-7.45); ABG pO2 67 mmHg (83-108)
--- NOTE | 2024-11-10 01:27 | ED.GENADULT ---
HPI - General Adult General Chief complaint: Cardiac Arrest/CPR Stated complaint: unresponsive Time Seen by Provider: 11/09/24 23:08 Source: EMS Mode of arrival: EMS Limitations: other History of Present Illness ED Provider: Dr. Amena Neff HPI narrative: patient comes to the emergency room via private vehicle unresponsive. According to the family, earlier today, the patient complaining of sudden onset of severe shortness of breath. The patient's mother went to get the patient's inhaler to a different room, when she returned, the patient was cyanotic. The family was able to get the patient in the car and they brought her to the emergency room. When the patient arrived to the ED, security staff pulled the patient out of the car, they put the patient on the wheelchair, no palpable pulses or spontaneous respiration present. patient was and immediately brought her back in the main ED. CPR was started And the patient was emergently intubated. Of note, this is the 2nd time that patient presenting in the same way. On 09/15/2023, patient had similar presentation. Related Data Home Medications ?Medication ?Instructions ?Recorded ?Confirmed metoprolol tartrate 100 mg tablet 100 mg PO BID 09/14/20 09/15/24 amlodipine 5 mg tablet 5 mg PO BID 01/30/21 09/15/24 metformin 500 mg tablet 1,000 mg PO BID 06/20/22 09/15/24 chlorthalidone 25 mg tablet 12.5 mg PO DAILY 08/26/24 08/26/24 dulaglutide 1.5 mg/0.5 mL 1.5 mg subcut Q7D 09/15/24 09/15/24 subcutaneous pen injector ([facility]) Previous Rx's ?Medication ?Instructions ?Recorded lisinopril 40 mg tablet 40 mg PO DAILY #90 tabs 10/11/20 levothyroxine 137 mcg tablet 137 mcg PO DAILY 30 days #30 tabs 11/05/21 blood sugar diagnostic (FreeStyle #50 ea 12/18/21 Lite Strips) Allergies Allergy/AdvReac Type Severity Reaction Status Date / Time shellfish derived Allergy Severe ANAPHALAXIS Verified 11/09/24 23:19 [SHELLFISH DERIVED] Iodinated Contrast Media Allergy Unknown CAN NOT Verified 11/09/24 23:19 [IODINATED CONTRAST MEDIA - HAVE DUE IV DYE] TO SHELLFISH ALLERGY Review of Systems Review of Systems: Yes unobtainable due to endotracheal tube and Other PMFSH Past Medical History Medical History Type 2 diabetes mellitus with diabetic neuropathy, unspecified Hypothyroidism Vitamin D deficiency HLD (hyperlipidemia) HTN (hypertension) T2DM (type 2 diabetes mellitus) Surgical History History of cholecystectomy Hx of section Family History Family History Father Hypertension Heart disease Mother Breast cancer Social History Social History Alcohol intake: former Patient Tobacco Use Status: Never used Tobacco Advance Directives: Yes Advance Directives Information Provided: Yes Advance Directives on File: No Physical Exam ED Vital Signs: Vital Signs - 24 hr 11/09/24 23:21 11/09/24 23:43 11/09/24 23:49 Temperature 98.4 F Pulse Rate 100 94 96 Respiratory Rate 24 H Blood Pressure 102/59 L 75/43 L 84/53 L Pulse Oximetry 85 L Oxygen Delivery Method Ambu-Bag Fraction of Inspired Oxygen 11/09/24 23:54 11/10/24 00:00 11/10/24 00:06 Temperature Pulse Rate 91 94 93 Respiratory Rate Blood Pressure 78/50 L 69/44 L 89/57 L Pulse Oximetry Oxygen Delivery Method Fraction of Inspired Oxygen 11/10/24 00:10 11/10/24 00:16 11/10/24 00:18 Temperature Pulse Rate 93 91 89 Respiratory Rate Blood Pressure 70/40 L 89/52 L 89/52 L Pulse Oximetry Oxygen Delivery Method Fraction of Inspired Oxygen 11/10/24 00:22 11/10/24 00:24 11/10/24 00:29 Temperature 100.4 F 100.4 F Pulse Rate 91 91 89 Respiratory Rate 30 H 25 H Blood Pressure 104/67 123/76 114/76 Pulse Oximetry 91 L 88 L Oxygen Delivery Method Ambu-Bag Ambu-Bag Fraction of Inspired Oxygen 11/10/24 00:36 11/10/24 00:45 11/10/24 00:45 Temperature 100.2 F Pulse Rate 93 94 91 Respiratory Rate 30 H 21 H Blood Pressure 120/73 119/73 119/73 Pulse Oximetry 89 L Oxygen Delivery Method Ambu-Bag Fraction of Inspired Oxygen 11/10/24 00:51 11/10/24 00:59 11/10/24 01:15 Temperature 100.2 F 100.2 F Pulse Rate 88 87 84 Respiratory Rate 36 H 30 H Blood Pressure 82/55 L 116/62 122/73 Pulse Oximetry 90 L 97 Oxygen Delivery Method Ambu-Bag Mechanical Ventilation Fraction of Inspired Oxygen 100 11/10/24 01:23 11/10/24 01:38 11/10/24 01:44 Temperature 100.0 F 100.0 F Pulse Rate 81 80 Respiratory Rate 30 H 30 H Blood Pressure 123/65 113/69 Pulse Oximetry 95 98 Oxygen Delivery Method Mechanical Ventilation Mechanical Ventilation Fraction of Inspired Oxygen 100 100 100 11/10/24 01:53 11/10/24 01:59 11/10/24 03:11 Temperature 100.0 F 100.0 F 100.2 F Pulse Rate 81 81 89 Respiratory Rate 30 H 30 H 30 H Blood Pressure 124/70 137/52 L 135/70 Pulse Oximetry 98 98 95 Oxygen Delivery Method Mechanical Ventilation Mechanical Ventilation Mechanical Ventilation Fraction of Inspired Oxygen 100 100 100 11/10/24 03:38 11/10/24 03:38 Temperature Pulse Rate 89 89 Respiratory Rate Blood Pressure 134/68 134/68 Pulse Oximetry Oxygen Delivery Method Fraction of Inspired Oxygen BMI result Body Mass Index 39.0 Const Other: Appearance: Unresponsive Eyes: Pupils equal, round and reactive to light. ENT: large amount of vomit in the mouth Neck: Normal inspection. Neck supple. No lymph nodes noted. No crepitus CVS: no pulse, CPR started upon arrival Respiratory: cyanotic, intubated on arrival Abdomen: Soft and nontender. No rigidity. No distention. Skin: warm, cyanotic Extremities: No lower extremity edema. No Lacerations. No Rash Neuro: unresponsive Psych: unresponsive Course Course Course Narrative: on 09/15/2024, patient presented to this emergency room with a similar presentation, unresponsive, cyanotic and in cardiac arrest. Patient states that she does not know why the patient went to cardiac arrest. Eventually patient was extubated and sent home. I requested records from [facility]. Seems that she was diagnosed with new onset CHF with an ejection fraction of 20-25% and new onset cardiomyopathy. Based on this information, it is possible that patient went into flash pulmonary edema? When I intubated the patient, there was a large amount of vomit and frothy sputum in the ET tube Of note, when the patient was intubated, no medications were push. patient did not have a gag reflex. Patient had a very large amount of vomit in the oropharynx. Patient was in asystole and CPR in progress. After 4 minutes of CPR, we got ROSC, within a few seconds, patient started opening her eyes, blinking. Medications were pushed Medications Administered Generic Name Dose Route Start Last Admin Trade Name Freq PRN Reason Stop Dose Admin Norepinephrine Bitartrate 8 mg in 250 mls @ 0 mls/hr 11/09/24 23:30 11/10/24 03:38 Levophed IVCONT 0.3 mcg/kg/min .Q0M MILO 50.91 mls/hr Administration Protocol Per Protocol Propofol 1,000 mg in 100 mls @ 0 mls/hr 11/09/24 23:45 11/10/24 02:45 Diprivan IVCONT 50 mcg/kg/min .Q0M MILO 27.15 mls/hr Administration Protocol Per Protocol Midazolam HCl 50 mg in 50 mls @ 2 mls/hr 11/10/24 00:45 11/10/24 00:45 Versed IVCONT 2 mg/hr .Q24H MILO 2 mls/hr Administration Protocol 2 MG/HR Discontinued Medications Generic Name Dose Route Start Last Admin Trade Name Freq PRN Reason Stop Dose Admin Etomidate 20 mg 11/09/24 23:29 11/09/24 23:01 Etomidate 20 Mg/10 Ml Vial IVPUSH 11/09/24 23:30 20 mg NOW STA Administration Furosemide 80 mg 11/10/24 00:12 11/10/24 00:15 Furosemide 100 Mg/10 Ml Vial IVPUSH 11/10/24 00:13 80 mg ONCE ONE Administration Protocol Sodium Chloride 1,000 mls @ 999 mls/hr 11/09/24 23:26 11/10/24 00:12 Ns IVCONT 11/10/24 00:26 Infused .Q1H1M ONE Infusion Vancomycin HCl 2,000 mg in 500 mls @ 250 mls/hr 11/09/24 23:26 11/10/24 02:31 Vancomycin/Ns IV 11/10/24 01:25 Infused ONCE ONE Infusion Piperacillin Sod/Tazobactam 50 mls @ 100 mls/hr 11/09/24 23:26 11/10/24 00:46 Sod 3.375 gm/ Sodium Chloride IV 11/09/24 23:55 Infused ONCE ONE Infusion Midazolam HCl 4 mg 11/10/24 02:21 11/10/24 02:27 Midazolam Hcl 2 Mg/2 Ml Vial IVPUSH 11/10/24 02:22 4 mg ONCE ONE Administration Ondansetron HCl 4 mg 11/09/24 23:26 11/09/24 23:32 Ondansetron Hcl 4 Mg/2 Ml Vial IVPUSH 11/09/24 23:27 4 mg ONCE ONE Administration Propofol 100 mg 11/09/24 23:29 11/09/24 23:38 Propofol 200 Mg/20 Ml Vial IVPUSH 11/09/24 23:30 Not Given ONCE ONE Rocuronium [place] 50 mg 11/09/24 23:29 11/09/24 23:01 Rocuronium [place] 50 Mg/5 Ml Vial IVPUSH 11/09/24 23:30 50 mg ONCE ONE Administration Procedures Central Line Placement Right Femoral: Time Out Performed: Yes Patient Placed on Monitor/Pulse Ox: Yes MD Prep: mask, gown and gloves Central Line Prep: Chlorhexidine scrub Ultrasound Used for Placement: Yes Central Line Lumen Inserted: triple Post Procedure: sutured in place, good blood return, all ports aspirated, flushed, capped and sterile dressing applied Patient Tolerated Procedure: well and no complications Complications: none Medical Decision Making Medical Decision Making MDM Narrative: - when patient arrived, CPR was done, 4 minutes, 1 epinephrine push was given, patient regained ROSC - patient was given etomidate, rocuronium, patient is on a propofol drip. When patient regained loss, patient was hypotensive in the 70s. Given 1 L of normal saline ( This was given before we got records from [facility] and we were not aware of patient's new diagnosis of CHF and cardiomyopathy) it was noted the patient had a large amount of vomit in the airway upon intubated, patient very likely aspirated, patient was given vancomycin and Zosyn. Also, given Lasix, Zofran. Patient is on a propofol drip, drop for the blood pressure, Levophed was started. I attempted inserting an right IJ central line. However, patient does not tolerate being supine or in Trendelenburg position. Patient has oxygen saturation dropped to the 50s even being intubated. A right femoral line was inserted. Patient's seems to be waking up even on propofol at maximum dose, 50 micrograms/kilogram per hour. Versed drip was started. It was very difficult to oxygenate the patient. Ventilating patient was not difficult. However, the oxygen saturation did not improve past 90 even on an Ambu bag with 100% O2. We tried AC\VC, AC/VC Plus, AC/PC, patient kept desaturated into the 70s uneven down to the 60s unfortunately, we do not have beds available here at [facility]. I spoke with the ICU fellow at [facility]. They do not have beds either. [facility] also, patient remained too unstable to be transferred, patient did not tolerate any vent settings. Eventually, after 2 hours of continuous Ambu bag ventilation, we were able to stabilize the patient on the vent. Patient is on AC/VC Plus, on a respiratory rate of 30, tidal volume 300, FiO2 100, peep 15 current vitals: Heart rate 80, respirations 30, oxygen saturation 98% intubated, blood pressure 133/65 at this time, patient has propofol 50 micrograms/kilogram per minute, norepinephrine 0.4 micrograms/kilogram per minute per minute, Versed 2 milligrams/hour [facility] accepted the patient. Patient will be going from ED to ED, Dr. Welsh accepted the patient patient will be traveling with a CD with patient's images and the records from [facility] that were sent to us patient's family agreeable with plan and with transfer out of state to [place] Initially, [facility] came to [place] picking supervisor the patient. however, the team that oversees the [facility] crew in [facility], they were uncomfortable having the patient being transferred with ALS rather than critical care transport. there is a that they were uncomfortable with the patient going with a PEEP that high, on 100% FiO2 with a high respiratory rate. we were able to reduce the PEEP to 12, tidal volume 300, respiratory rate 18. Vitals signs: Heart rate 92, oxygen 93%, blood pressure 126/61, temperature 100.8 degrees however, per [facility] house furnishings supervisor from [place], they recommended against transfering the patient with ALS. We called critical care transport and they are on the way Differential Diagnosis Differential Diagnoses: The differential diagnosis associated with the presentation includes ( Flash pulmonary edema, pneumonia, arrhythmia) Admission/Observation Consideration of admission/observation: Escalation of care including admission/observation considered Consult Healthcare Provider Management of the patient was discussed with: Director Of Sleep Lab Data MDM Lab Attestation statement: I reviewed the patient's lab results. 11/09/24 23:10 11/09/24 23:10 Labs: Lab Results 11/09/24 11/09/24 11/09/24 Range/Units 22:55 23:10 23:16 WBC 14.1 H (4.8-10.8) X10*3/uL RBC 4.49 (4.20-5.50) X10*6/uL Hgb 11.8 L (12.0-16.0) g/dl Hct 38.8 D (37.0-47.0) % MCV 86.4 (80.0-98.0) fL MCH 26.3 L (27.0-33.0) pg MCHC 30.4 L (31.0-35.0) g/dl RDW 14.5 (11.0-16.0) % Plt Count 345 (160-400) X10*3/uL MPV 9.8 (9.4-12.3) fL Immature Gran % (Auto) 1.0 H (0.0-0.4) % Neut % (Auto) 38.8 L (45-73) % Lymph % (Auto) 51.1 H (20-40) % [place] % (Auto) 8.8 (2-11) % Eos % (Auto) 0.1 (0-4) % Baso % (Auto) 0.2 (0-2) % Lymph # (Auto) 7.2 H (1.2-4.9) X10*3/uL [place] # (Auto) 1.3 H (0.1-1.2) X10*3/uL Eos # (Auto) 0.0 (0.0-0.4) X10*3/uL Baso # (Auto) 0.0 (0.0-0.2) X10*3/uL Abs Immat Gran (auto) 0.14 H (0.00-0.03) X10*3/uL Absolute Neuts (auto) 5.5 (2.0-8.3) x10*3/uL Absolute Nucleated RBC 0.000 (0.0-0.012) X10*3/uL Nucleated RBC % (auto) 0.0 (0.0-0.2) /100WBC Smear Tech's Comments VERIFIED PT 12.4 (10.9-12.4) SEC INR 1.1 (0.9-1.1) O2 Saturation % ABG pH at Pt Temp (7.35-7.45) ABG pCO2 at Pt Temp (32-45) mmHg ABG pO2 at Pt Temp (83-108) mmHg ABG HCO3 (22-26) mmol/L ABG Base Excess (Actual) mmol/L VBG pH (7.32-7.43) VBG pCO2 mmHg VBG pO2 mmHg VBG HCO3 (22-26) mmol/L VBG O2 Saturation % VBG Base Excess mmol/L Sodium 138 (135-145) mmol/L Potassium 4.0 (3.3-5.1) mmol/L Chloride 107 (96-108) mmol/L Carbon Dioxide 14 L (22-29) mmol/L Anion Gap 21 H (12-20) BUN 27 H (9-16) mg/dL Creatinine 1.74 H (0.5-1.4) mg/dL Estim Creat Clear Calc 37.4 Estimated GFR 31 POC Glucose 98 (60-115) mg/dL Random Glucose 255 H (60-115) mg/dL Lactic Acid 8.6 H* (0.5-2.0) mmol/L Lactic Acid F/U @ 2Hr (0.5-2.0) mmol/L Calcium 9.5 (8.4-10.2) mg/dL Total Bilirubin 0.6 (0.0-1.0) mg/dL Direct Bilirubin 0.2 (0.0-0.5) mg/dL AST 43 H (5-31) U/L ALT 45 H (0-31) U/L Alkaline Phosphatase 104 (39-117) U/L Troponin I High Sens 24.6 H (<3.5-17.0) ng/L B-Natriuretic Peptide 250 H (<100) pg/mL Total Protein 8.6 H (6.5-8.0) g/dL Albumin 3.7 (3.5-5.0) g/dL Urine Color Yellow Urine Appearance Clear Urine pH 6.0 (5.0-9.0) Ur Specific [place] 1.010 (1.005-1.025) Urine Protein 300 (3+) H (Neg-Trace) mg/dL Urine Glucose (UA) Negative (Negative) mg/dL Urine Ketones Negative (Negative) mg/dL Urine Blood Negative (Negative) Urine Nitrite Negative (Negative) Ur Leukocyte Esterase Small (1+) H (Negative) Urine RBC 0-2 (0-2) /HPF Urine WBC 11-20 H (0-5) /HPF Ur Squamous Epith Cells 3-5 (0-2) /HPF Urine Bacteria Trace (None Seen) Hyaline Casts 0-2 (0-2) /LPF Influenza Type A (PCR) (Negative) Influenza Type B (PCR) (Negative) RSV RNA Qual (PCR) (Negative) SARS-CoV-2 RNA (RT-PCR) (Negative) 11/09/24 11/09/24 11/10/24 Range/Units 23:24 23:25 01:15 WBC (4.8-10.8) X10*3/uL RBC (4.20-5.50) X10*6/uL Hgb (12.0-16.0) g/dl Hct (37.0-47.0) % MCV (80.0-98.0) fL MCH (27.0-33.0) pg MCHC (31.0-35.0) g/dl RDW (11.0-16.0) % Plt Count (160-400) X10*3/uL MPV (9.4-12.3) fL Immature Gran % (Auto) (0.0-0.4) % Neut % (Auto) (45-73) % Lymph % (Auto) (20-40) % [place] % (Auto) (2-11) % Eos % (Auto) (0-4) % Baso % (Auto) (0-2) % Lymph # (Auto) (1.2-4.9) X10*3/uL [place] # (Auto) (0.1-1.2) X10*3/uL Eos # (Auto) (0.0-0.4) X10*3/uL Baso # (Auto) (0.0-0.2) X10*3/uL Abs Immat Gran (auto) (0.00-0.03) X10*3/uL Absolute Neuts (auto) (2.0-8.3) x10*3/uL Absolute Nucleated RBC (0.0-0.012) X10*3/uL Nucleated RBC % (auto) (0.0-0.2) /100WBC Smear Tech's Comments PT (10.9-12.4) SEC INR (0.9-1.1) O2 Saturation 90.0 % ABG pH at Pt Temp 7.28 L (7.35-7.45) ABG pCO2 at Pt Temp 32 (32-45) mmHg ABG pO2 at Pt Temp 67 L (83-108) mmHg ABG HCO3 15 L (22-26) mmol/L ABG Base Excess (Actual) -9.6 mmol/L VBG pH 6.97 L* (7.32-7.43) VBG pCO2 61 mmHg VBG pO2 36 mmHg VBG HCO3 14 L (22-26) mmol/L VBG O2 Saturation 31.0 % VBG Base Excess -17.5 mmol/L Sodium (135-145) mmol/L Potassium (3.3-5.1) mmol/L Chloride (96-108) mmol/L Carbon Dioxide (22-29) mmol/L Anion Gap (12-20) BUN (9-16) mg/dL Creatinine (0.5-1.4) mg/dL Estim Creat Clear Calc Estimated GFR POC Glucose (60-115) mg/dL Random Glucose (60-115) mg/dL Lactic Acid (0.5-2.0) mmol/L Lactic Acid F/U @ 2Hr (0.5-2.0) mmol/L Calcium (8.4-10.2) mg/dL Total Bilirubin (0.0-1.0) mg/dL Direct Bilirubin (0.0-0.5) mg/dL AST (5-31) U/L ALT (0-31) U/L Alkaline Phosphatase (39-117) U/L Troponin I High Sens (<3.5-17.0) ng/L B-Natriuretic Peptide (<100) pg/mL Total Protein (6.5-8.0) g/dL Albumin (3.5-5.0) g/dL Urine Color Urine Appearance Urine pH (5.0-9.0) Ur Specific [place] (1.005-1.025) Urine Protein (Neg-Trace) mg/dL Urine Glucose (UA) (Negative) mg/dL Urine Ketones (Negative) mg/dL Urine Blood (Negative) Urine Nitrite (Negative) Ur Leukocyte Esterase (Negative) Urine RBC (0-2) /HPF Urine WBC (0-5) /HPF Ur Squamous Epith Cells (0-2) /HPF Urine Bacteria (None Seen) Hyaline Casts (0-2) /LPF Influenza Type A (PCR) NEGATIVE (Negative) Influenza Type B (PCR) NEGATIVE (Negative) RSV RNA Qual (PCR) NEGATIVE (Negative) SARS-CoV-2 RNA (RT-PCR) NEGATIVE (Negative) 11/10/24 Range/Units 01:24 WBC (4.8-10.8) X10*3/uL RBC (4.20-5.50) X10*6/uL Hgb (12.0-16.0) g/dl Hct (37.0-47.0) % MCV (80.0-98.0) fL MCH (27.0-33.0) pg MCHC (31.0-35.0) g/dl RDW (11.0-16.0) % Plt Count (160-400) X10*3/uL MPV (9.4-12.3) fL Immature Gran % (Auto) (0.0-0.4) % Neut % (Auto) (45-73) % Lymph % (Auto) (20-40) % [place] % (Auto) (2-11) % Eos % (Auto) (0-4) % Baso % (Auto) (0-2) % Lymph # (Auto) (1.2-4.9) X10*3/uL [place] # (Auto) (0.1-1.2) X10*3/uL Eos # (Auto) (0.0-0.4) X10*3/uL Baso # (Auto) (0.0-0.2) X10*3/uL Abs Immat Gran (auto) (0.00-0.03) X10*3/uL Absolute Neuts (auto) (2.0-8.3) x10*3/uL Absolute Nucleated RBC (0.0-0.012) X10*3/uL Nucleated RBC % (auto) (0.0-0.2) /100WBC Smear Tech's Comments PT (10.9-12.4) SEC INR (0.9-1.1) O2 Saturation % ABG pH at Pt Temp (7.35-7.45) ABG pCO2 at Pt Temp (32-45) mmHg ABG pO2 at Pt Temp (83-108) mmHg ABG HCO3 (22-26) mmol/L ABG Base Excess (Actual) mmol/L VBG pH (7.32-7.43) VBG pCO2 mmHg VBG pO2 mmHg VBG HCO3 (22-26) mmol/L VBG O2 Saturation % VBG Base Excess mmol/L Sodium (135-145) mmol/L Potassium (3.3-5.1) mmol/L Chloride (96-108) mmol/L Carbon Dioxide (22-29) mmol/L Anion Gap (12-20) BUN (9-16) mg/dL Creatinine (0.5-1.4) mg/dL Estim Creat Clear Calc Estimated GFR POC Glucose (60-115) mg/dL Random Glucose (60-115) mg/dL Lactic Acid (0.5-2.0) mmol/L Lactic Acid F/U @ 2Hr 1.7 (0.5-2.0) mmol/L Calcium (8.4-10.2) mg/dL Total Bilirubin (0.0-1.0) mg/dL Direct Bilirubin (0.0-0.5) mg/dL AST (5-31) U/L ALT (0-31) U/L Alkaline Phosphatase (39-117) U/L Troponin I High Sens 54.3 H* D (<3.5-17.0) ng/L B-Natriuretic Peptide (<100) pg/mL Total Protein (6.5-8.0) g/dL Albumin (3.5-5.0) g/dL Urine Color Urine Appearance Urine pH (5.0-9.0) Ur Specific [place] (1.005-1.025) Urine Protein (Neg-Trace) mg/dL Urine Glucose (UA) (Negative) mg/dL Urine Ketones (Negative) mg/dL Urine Blood (Negative) Urine Nitrite (Negative) Ur Leukocyte Esterase (Negative) Urine RBC (0-2) /HPF Urine WBC (0-5) /HPF Ur Squamous Epith Cells (0-2) /HPF Urine Bacteria (None Seen) Hyaline Casts (0-2) /LPF Influenza Type A (PCR) (Negative) Influenza Type B (PCR) (Negative) RSV RNA Qual (PCR) (Negative) SARS-CoV-2 RNA (RT-PCR) (Negative) Independent Interpretation I performed an independent interpretation of an: Plain X-Ray Radiology Impression Discussion of test interpretation with radiology: I have reviewed the radiologist's reading. Radiologist Impression: Study is mildly limited by overlying external artifact. There is no evidence of a pneumothorax. Endotracheal tube remains at the sarah with tip directed towards the left mainstem bronchus. NG tube passes into the stomach. There are hazy bilateral airspace opacities stable on the right and increased on the left suggestive of pneumonitis or edema. Cardiomediastinal silhouette is stable. IMPRESSION: Findings as above. Critical Care Time Critical Care Time Critical Care Time: Yes Total Critical Care Time: 120 Attestation: I have personally provided critical care time. Time includes review of lab data, radiology results, discussion with consultants, and monitoring for potential decompensation. Intervention performed as documented. Discharge Plan Discharge Clinical Impression: Cardiac arrest, Flash pulmonary edema, GILBERTO (acute kidney injury) Patient Disposition: [facility] Transfer Details: [facility] ED to ED, Dr. Welsh Prescriptions: No Action levothyroxine 137 mcg tablet 137 mcg PO DAILY 30 Days Qty: 30 3RF lisinopril 40 mg tablet 40 mg PO DAILY Qty: 90 0RF Trulicity 1.5 mg/0.5 mL pen injector 1.5 mg subcut Q7D metoprolol tartrate 100 mg tablet 100 mg PO BID amlodipine 5 mg tablet 5 mg PO BID (DME) FreeStyle Lite Strips Strip See Rx Instructions .ROUTE .MEDSUPPLY Qty: 50 11RF Rx Instructions: As directed twice a day metformin 500 mg tablet 1,000 mg PO BID chlorthalidone 25 mg tablet 12.5 mg PO DAILY Print Language: Greenlandic
--- NOTE | 2024-11-10 01:40 | PC.NURSE ---
see code sheet 4722-1080. 2313- 16F temp sensing castelan placed 2324- pt unable to tolerate vent, pt manually bagged at 100% FIO2, and RT at bedside. 2356- 20C central line placed by in the right femoral. 0113- pt placed on vent tolerating well. pt manually bagged by this RN and RT at this time. see mar for medication administration and titration.
--- NOTE | 2024-11-10 01:43 | PC.NURSE ---
pt mother collected pt belongings at this time. belongings list updated.
--- NOTE | 2024-11-10 01:43 | MHC.EDTECH ---
Family took belongings home. Belongings list updated
[2024-11-10 01:47] LABS: ~Lactic Acid-LAB USE ONLY 1.7 mmol/L (0.5-2.0)
[2024-11-10 01:59] LABS: Troponin-I High Sensitivity 54.3 ng/L (<3.5-17.0)
--- NOTE | 2024-11-10 02:19 | PC.NURSE ---
pt noted to desat to 85% n the vent, RT and provider called to bedside. pt manually being bagged at this time.
[2024-11-10] MEDS: Midazolam HCl 2 MG/2 ML VIAL 4 MG IVPUSH (02:27)
--- NOTE | 2024-11-10 02:35 | PC.NURSE ---
report given to Brenda PALM at [facility] ed. pt back on mechanical vent sating 95%.
[2024-11-10] MEDS: propofoL 1,000 MG/100 ML VIAL 27.15 MG IVCONT ×2 (02:45→05:26)
--- NOTE | 2024-11-10 03:11 | PC.NURSE ---
family at bedside with pt. ems at bedside, report given.
[2024-11-10] MEDS: Norepinephrine Bitartrate/D5W 8 MG/250 ML PLAST..BAG 50.91 MG IVCONT (03:38)
--- NOTE | 2024-11-10 04:43 | PC.NURSE ---
[facility] unable to transport pt. air flight coming at this time to transport pt via helicopter.
[2024-11-10] MEDS: Acetaminophen 1,000 MG/100 ML PIGGYBACK 400 MG IV (04:44)
--- NOTE | 2024-11-10 04:58 | PC.NURSE ---
Critical radiology report given to DR. Alexander. Respirator called per Dr. Alexander, T tube in the main stem of the left bronchus
--- NOTE | 2024-11-10 05:27 | PC.NURSE ---
CCT at bedside for flight transport of pt. report given at bedside.
[2024-11-10 05:41] LABS: Glucose, Whole Blood 176 mg/dL (60-115)
== END 2024-11-10 06:47 | disposition short-term general hospital (02) ==
PROVIDERS: Emergency Provider Emergency Medicine; PCP Internal Medicine
DX: I46.9 Cardiac arrest, cause unspecified (principal); J81.0 Acute pulmonary edema; I13.0 Hypertensive heart and chronic kidney disease with heart failure and stage 1 through stage 4 chronic kidney disease, or unspecified chronic kidney disease; I50.30 Unspecified diastolic (congestive) heart failure; N18.9 Chronic kidney disease, unspecified; E11.22 Type 2 diabetes mellitus with diabetic chronic kidney disease; N17.8 Other acute kidney failure; R06.02 Shortness of breath; Z03.818 Encounter for observation for suspected exposure to other biological agents ruled out; E78.5 Hyperlipidemia, unspecified; E03.9 Hypothyroidism, unspecified; I25.2 Old myocardial infarction; Z79.899 Other long term (current) drug therapy; Z79.85 Long-term (current) use of injectable non-insulin antidiabetic drugs; Z79.84 Long term (current) use of oral hypoglycemic drugs
CPT/HCPCS: 0241U; 31500; 36415; 36556; 71045; 80053; 81001; 82248; 82803; 82947; 83605; 83880; 84484; 85025; 85610; 87040; 87086; 93005; 94002; 96361; 96365; 96366; 96367; 96375; 99285; 99291; 99292; J0131; J0171; J1940; J2250; J2251; J2405; J2543; J2704; J3370

== ENCOUNTER → 2024-11-09 23:01 | Outpatient (BNV) | payer OTHER, SELFPAY | PROVIDERS: Emergency Provider Emergency Medicine; PCP Internal Medicine; Visit Provider Internal Medicine | DX: I44.7 Left bundle-branch block, unspecified (principal) | CPT/HCPCS: 93010 ==

== ENCOUNTER → 2024-11-09 23:20 | Outpatient (BNV) | payer OTHER, SELFPAY | PROVIDERS: Emergency Provider Emergency Medicine; PCP Internal Medicine; Visit Provider Radiology Diagnostic Radiology | DX: Z99.11 Dependence on respirator [ventilator] status (principal) | CPT/HCPCS: 71045 ==

== ENCOUNTER → 2024-11-10 00:14 | Outpatient (BNV) | payer OTHER, SELFPAY | PROVIDERS: Emergency Provider Emergency Medicine; PCP Internal Medicine; Visit Provider Radiology Diagnostic Radiology | DX: Z45.2 Encounter for adjustment and management of vascular access device (principal); Z99.11 Dependence on respirator [ventilator] status | CPT/HCPCS: 71045 ==

== ENCOUNTER 2024-11-23 09:49 | Outpatient (AMB) | payer OTHER, SELFPAY ==
--- NOTE | 2024-11-23 09:53 | HO.NEPHOV_ITS ---
Vital Signs 11/23/24 09:54 Height 5 ft 1 in Weight 189 lb BMI 35.7 BP 112/72 Blood Pressure Location Lt brachial Position Sitting Pulse 93 Pulse Source Pulse Oximeter Pulse Oximetry (%) 98 Oxygen Delivery Method Room Air Intake Visit Reasons: CKD/ Conf Drywall Stripper Required: No Accompanied by: Mother Allergies shellfish derived [SHELLFISH DERIVED] Allergy (Severe, Verified 11/23/24 09:56) ANAPHALAXIS Iodinated Contrast Media [IODINATED CONTRAST MEDIA - IV DYE] Allergy (Unknown, Verified 11/23/24 09:56) CAN NOT HAVE DUE TO SHELLFISH ALLERGY Medication List - Last Reconciled 11/23/24 by Nacho Rivas MD amlodipine 10 mg PO BID apixaban (Eliquis) 5 mg PO BID aspirin 81 mg PO DAILY atorvastatin 40 mg PO DAILY blood sugar diagnostic (FreeStyle Lite Strips) As directed twice a day carvedilol 6.25 mg PO BID dulaglutide (Trulicity) 1.5 mg subcut Q7D empagliflozin (Jardiance) 10 mg PO DAILY famotidine 20 mg PO DAILY ferrous sulfate 325 mg PO DAILY furosemide 40 mg PO DAILY levothyroxine 137 mcg PO DAILY 30 days sacubitril-valsartan 24-26 mg (Entresto) 1 tab PO BID HPI Comments Details: Pt is a 53 y/o female with a medical history of CKD stage 3a, proteinuria, uncontrolled DMII, HTN, RLS, GERD, hypercholesterolemia, morbid obesity, hx of cholecystectomy. Some diastolic dysfunction 2/2 HTN per cardiology in 2021 based on echo. She was referred by her PCP Dr Banuelos for proteinuria. History of ongoing proteinuria since at least 2018, DMII longstanding microalbumin to creatinine ratio 1404 in January, she has been elevated since at least 2018 (at that time ratio was 1596) reports she recently lost 25lbs by losing more vegetables, cut down on rice to once weekly as well but still could improve, bread is my weakness. no shortness of breath no chest pain denies urinary symptoms- no burning, frequency, urgency, nocturia, blood in urine or flank pain. She underwent renal ultrasonogram which was reportedly normal 11/21/2024. Two weeks ago she had cardiac arrest and resuscitated. Transferred to [facility] Waiting for cardiac evaluation. She is off chlorthalidone. Currently on Lasix 20 mg a day. She has no cardiology follow up [facility] Medical History Type 2 diabetes mellitus with diabetic neuropathy, unspecified Hypothyroidism Vitamin D deficiency HLD (hyperlipidemia) HTN (hypertension) T2DM (type 2 diabetes mellitus) Surgical History History of cholecystectomy Hx of section Family History Father Hypertension Heart disease Mother Breast cancer Social History Alcohol intake: former Patient Tobacco Use Status: Never used Tobacco Physical Exam Vital Signs: Last Vital Signs Pulse 93 11/23/24 09:54 BP 112/72 11/23/24 09:54 Pulse Ox 98 11/23/24 09:54 Oxygen Delivery Method Room Air 11/23/24 09:54 BMI result Body Mass Index 35.7 Comfortable Neck supple no JVD. Lungs entry equal no rales. Heart S1-S2 heard no gallop or rub. Abdomen soft nontender. Neuro alert awake oriented. No asterixis. Extremities no edema. Results Reviewed Nephrology Results: Hgb 11.8 g/dl (12.0-16.0) L 11/09/24 WBC 14.1 X10*3/uL (4.8-10.8) H 11/09/24 Plt Count 345 X10*3/uL (160-400) 11/09/24 Sodium 138 mmol/L (135-145) 11/09/24 Potassium 4.0 mmol/L (3.3-5.1) 11/09/24 Chloride 107 mmol/L (96-108) 11/09/24 Carbon Dioxide 14 mmol/L (22-29) L 11/09/24 BUN 27 mg/dL (9-16) H 11/09/24 Creatinine 1.74 mg/dL (0.5-1.4) H 11/09/24 Calcium 9.5 mg/dL (8.4-10.2) 11/09/24 Urine Protein 300 (3+) mg/dL (Neg-Trace) H 11/09/24 Urine Creatinine 71.23 mg/dL 10/11/24 Assessment & Plan Assessment & Plan (1) Type 2 diabetes mellitus with diabetic neuropathy, unspecified: Code(s): E11.40 - Type 2 diabetes mellitus with diabetic neuropathy, unspecified Category: Medical Qualifiers: Diabetes mellitus terminal system operator insulin use: without alf use Qualified Code(s): E11.40 - Type 2 diabetes mellitus with diabetic neuropathy, unspecified (2) Proteinuria: Code(s): R80.9 - Proteinuria, unspecified Category: Medical Qualifiers: Proteinuria type: persistent Qualified Code(s): R80.1 - Persistent proteinuria, unspecified (3) CKD (chronic kidney disease): Code(s): N18.9 - Chronic kidney disease, unspecified Category: Medical Plan 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 Differential would include FSGS from obesity. Serological workup for nondiabetic causes are unremarkable GILBERTO due to hypoperfusion Renal function is improving She would benefit from SGLT2 inhibitors, for renal protection and improved diabetic control advised reduce salt in diet continue to work on additional weight loss continue to work on improving blood sugar control She needs cardiology follow up and she has an appointment in [facility] Coding Level of Care Code Est Pt Level 4 (92583) Diagnoses Type 2 diabetes mellitus with diabetic neuropathy, without long-term current use of insulin E11.40 Diabetes mellitus alf insulin use: without terminal system operator use Persistent proteinuria R80.1 Proteinuria type: persistent CKD (chronic kidney disease) N18.9
[2024-11-23 09:54] VITALS: BP 112/72; PULSE 93; O2SAT 98; BMI 35.7
--- OUTSIDE RECORDS SUMMARY | 2024-11-23 11:14 | XMS_ITS | Continuity of Care Document ---
Author Organization [facility] Address [address] [place] [address]- Care Team Providers Care Securities Clerk Name Role Phone Naman Caldera MD Primary Care Physician [phone] [id number] Date(s): 09/29/24 - 10/29/[address] [address]- Attending Physician: Not on Staff, Attending MD Admitting Physician: Not on Staff, Admitting MD Referring Physician: Not on Staff, Referring MD Encounter Type: Pre-Outpt Allergies, Adverse Reactions, Alerts Substance Criticality Severity [...] 1:13:00 PM EST, Route to Pharmacy Electronically, [facility], Partial fill upon patient request [...] Refills, Maintenance, 09/29/24 1:13:00 PM EST, Tablet, [facility], Partial fill upon patient request [...] 1:15:00 PM EST, Route to Pharmacy Electronically, [facility], Partial fill uponpatient request if the [...] 1:13:00 PM EST, Route to Pharmacy Electronically, [facility], Partial fill upon patient request if [...] Refills, Maintenance, 09/29/24 6:17:00 PM EST, Tablet, [id number], Partial fill upon patient request [...] Date: 09/16/24 Status: Ordered Repeat number: 1 Trulicity Pen 1.5 mg/0.5 mL subcutaneous solution INJECT 1 PEN SUBCUTANEOUSLY ONCE A WEEK Start Date: 09/16/24 Status: Ordered Repeat number: 1 Problem List Condition Confirmation Course Effective Dates Status Health St [facility] Informant Severe obesity Confirmed Active Social History Social History Type Response Smoking Status Never smoker entered on: 05/17/14 Sex Sex Representation Female (finding) Patient Care team information Care Team Personnel Name: Srinivasan Juarez RN Position: S RN Member Role: Primary Care Nurse Name: Melinda Doe RN Position: S RN Member Role: Primary Care Nurse Name: Cassy Plata RN Position: S RN Member Role: Primary Care Nurse Name: Josue Rosas LPN Position: S RN Member Role: Primary Care Nurse Name: Karissa Martinez NP Position: [facility] Associate Professional Member Role: Lifetime Consulting Provider Address: [address] [place], [place] [address] [address] Telecom: Name: Jason Qureshi MD Position: [facility] Renal MD Member Role: Lifetime Consulting Physician Address: [address] [place], [place] [address] [address] Telecom: Name: Naman Caldera MD Position: Reference Physician Member Role: PCP Address: [address] [place] [address] Telecom: Name: Dylon Whittington DO Position: [facility] Renal MD Member Role: Lifetime Consulting Physician Address: [address] [place], [place] [address] [address] Telecom: Name: Oxana Odom RN Position: S [...] Care Nurse Care Team Related Persons Name: REY LUU Name: BOBBY ARCE Insurance Providers Guarantor name: LEENA Health Plan Information #: 1 Payer: [employer] Member Number: NA Policy Number: NA Group Number: NA
--- OUTSIDE RECORDS SUMMARY | 2024-11-23 11:14 | XMS_ITS | Continuity of Care Document ---
Author Organization [facility] Address [address] [place] [address]- Care Team Providers Care Telephone Coin Box Collector Name Role Phone Phill Banuelos MD Primary Care Physician [phone] Encounter 10/01/24 - 11/09/24 [facility] Nurse [facility] [address] [place] [address]- Discharge Disposition: GOALS MET Encounter Type: Disch [facility] Allergies, Adverse Reactions, Alerts Substance Criticality Severity [...] 1:13:00 PM EST, Route to Pharmacy Electronically, [facility], Partial fill upon patient [...] Refills, Maintenance, 09/29/24 1:13:00 PM EST, Tablet, [facility], Partial fill upon patient request if the prescription is for a schedule II opioid drug., 158, cm, 09/29/24 1:28:00 EST, Height, 98, kg, 09/16/24 2:10:00 EST, Dry Weight Start Date: 09/29/24 Status: Ordered Quantity: 30.0 Unit: tablet Repeat number: 1 Blood pressure cuff for HTN Blood pressure cuff for HTN, See Instructions, # 1 each, Refills 0, Tot. Refills 0, Maintenance, Blood pressure cuff for HTN, 11/03/24 9:52:00 AM EST, Supply Start Date: 11/03/24 Status: Ordered Quantity: 1.0 Unit: each Repeat number: 1 Coreg 6.25 mg oral tablet 6.25 mg, 1, tablet, By Mouth, 2 times a day, # 60 tablet, Refills 0, Tot. Refills 0, Maintenance, 09/29/24 1:15:00 PM EST, Route to Pharmacy Electronically, [facility], Partial fill uponpatient request if the [...] 1:13:00 PM EST, Route to Pharmacy Electronically, [facility], Partial fill upon patient request if [...] Effective Dates Status Health [facility] Informant Obese class II Confirmed Active Social History Social History Type Response Smoking Status Never smoker entered on: 05/17/14 Sex Sex Representation Female (finding) Patient Care team information Care Team Personnel Name: Srinivasan Juarez RN Position: [facility] RN Member Role: Primary Care Nurse Name: Melinda Doe RN Position: S RN Member Role: Primary Care Nurse Name: Cassy Plata RN Position: S RN Member Role: Primary Care Nurse Name: Phill Banuelos MD Position: [facility] Outreach Member Role: PCP Address: [address] Phill Rene [place]uel[place], [place] [address] Telecom: Name: Josue Rosas LPN Position: [facility] RN Member Role: Primary Care Nurse Name: Karissa Martinez NP Position: [facility] Associate Professional Member Role: Lifetime Consulting Provider Address: [address] [facility] [place], [place] [address] Telecom: Name: Jason Qureshi MD Position: [facility] Renal MD Member Role: Lifetime Consulting Physician Address: [address] [facility] [place], [place] [address] Telecom: Name: Dylon Whittington DO Position: [facility] Renal MD Member Role: Lifetime Consulting Physician Address: [address] [facility] [place] [address]- Telecom: Name: Oxana Odom RN Position: [facility] RN Member Role: Primary Care Nurse Name: Willian Luo RN Position: [facility] RN Member Role: Primary Care Nurse Name: Kaylee Chan LPN Position: [facility] RN Member Role: Primary Care Nurse Name: Marlon Duarte RN Position: [facility] RN Member Role: Primary Care Nurse Name: Susan Neff RN Position: [facility] RN Member Role: Primary Care Nurse Name: Heather Rosas RN Position: S RN Member Role: Primary Care Nurse Name: Roberto Huston RN Position: [facility] RN Member Role: Primary Care Nurse Care Team Related Persons Name: REY LUU Name: REY LUU Name: BOBBY ARCE Insurance Providers Guarantor name: NA Health Plan Information #: 1 Payer: [employer] Member Number: NA Policy Number: NA Group Number: NA
--- OUTSIDE RECORDS SUMMARY | 2024-11-23 11:14 | XMS_ITS | Encounter Summary ---
Author Organization [facility] Address [address] [place] [address] Care Team Providers Care Technician Submarine Cable Equipment Name Role Phone Unavailable Primary Care Provider Unavailabl e Encounter Details Date Type Department Care Team (Late st Contact Info) Description 11/10/2024 6:10 AM EDT Ancillary Procedure [facility] [address] [place] [address] Provider, File Room Social History Tobacco Use Types Packs/Day Years Used Date Smoking Tobacco: Never Assessed AUDIT-C Answer Date Recorded Q1: How often do you have a drink containing alcohol? Patient unable to answer 11/10/2024 Q2: How many drinks containi ng alcohol do you have on a typical day when you are drinking? Patient unable to answer Q3: How often do you have si x or more drinks on one occasion? Patient unable to answer 11/10/2024 Sex and Gender Information Value Date Recorded Sex Assigned at Female 11/10/2024 6:28 AM EDT Gender Identity Female 11/10/2024 6:28 AM EDT Sexual Orientation Choose not to disclose 2024 6:28 AM EDT documented as of this encounter Plan of Treatment Not on file documented as of this encounter Procedures Procedure Name Priority Date/Time Associated Diagnosis Comments MAN ARCHIVE FOR REFERENCE ONLY CR Routine 11/10/2024 6:10 AM EDT documented in this encounter Results * MAN Archive for reference only CR (11/10/2024 6:10 AM EDT) Narrative SYSTEMGENERATED, DOCUMENTATION - 11/10/2024 6:08 AM EDT This order has been auto-finalized and does not contain a result. Heather CORONEL DIGITIZE FILMS documented in this encounter Visit Diagnoses Not on filedocumented in this encounter
--- OUTSIDE RECORDS SUMMARY | 2024-11-23 11:14 | XMS_ITS | Clinical Summary ---
Author Organization [facility] Address [address] [place] [address] Phone Care Team Providers Care Education Reporter Name Role Phone Phill Banuelos MD Primary Care Provider [phone] Allergies Active Allergy Reactions Criticality Noted Date [...] Relevant to Health Maintenance Insurance MEDICAID MEDICAID [facility] MEDICAID Care Teams Education Reporter Relationship Specialty Start Date End Date Phill Banuelos MD [address] [place], [place] PCP - General Internal Medicine 04/26/21
--- OUTSIDE RECORDS SUMMARY | 2024-11-23 11:15 | XMS_ITS | Encounter Summary ---
Author Organization [facility] Address [address] [place] [address] Care Team Providers [facility] [employer] [employer] Name Role Phone Unavailable Primary Care Provider Unavailabl e Reason for Referral * Cardiology (Routine) - Authorized Specialty Diagnoses / Procedures Referred By Contact Referred To Contact Cardiovascular Disease / Cardiology Diagnoses Cardiac arrest (HCC) Cardiomyopathy (HCC) Srinivasan Mattson MD [address] [place] [address] [address] [place] [id number] Referral ID Status Reason Start Date Expiration Date V isits Requested Visits Authorized [id number] Authorized Consult 11/17/2024 11/18/2025 1 1 Question Answer Reason for referral: Arrhythmia Reason for Visit * Reason Comments Cardiopulmonary Arrest * Auth/Cert Specialty Diagnoses / Procedures Referred By Contac t Referred To Contact Diagnoses Acute respiratory failure (HCC) Cardiac arrest (HCC) respiratory distress, cardiac arrest, ROSC Procedures na Referral ID Status Reason Start Date Expiration Date Visits Re quested Visits Authorized [id number] 1 1 Encounter Details Date Type Department Care Team (Late st Contact Info) Description 11/10/2024 6:20 AM EDT - 11/18/2024 11:32 AM EDT Hospital Encounter [facility] [address] [place] [address] Satnam Silva MD [address] [facility] [address] [place] [address] Luke King MD [address] [place] [address] Cesilia Ames MD [address] [address] [place] [address] Neil Rivera MD 85 [facility] [address] [place] [address] Srinivasan Mattson MD [address] [place] [address] Neil Padilla MD [address] [place] [id number] Acute respiratory failure (HCC) (Primary Dx); Cardiac arrest (HCC); Cardiomyopathy (HCC); Shock (HCC); Indwelling catheter present on admission; Left bundle branch block (LBBB) Discharge Disposition: Home or Self Care Social History Tobacco Use Types Packs/Day Years Used Date Smoking Tobacco: Never Assessed [facility] Utilities Answer Date Recorded In the past 12 months has [facility], gas, oil, or water [employer] threatened to shut off services in your home? Patient unable to answer 11/12/2024 AUDIT-C Answer Date Recorded Q1: How often do you have a drink containing alcohol? Patient unable to answer 11/10/2024 Q2: How many drinks containi ng alcohol do you have on a typical day when you are drinking? Patient unable to answer Q3: How often do you have si x or more drinks on one occasion? Patient unable to answer 11/10/2024 Hunger Vital Sign Answer Date Recorded Within the past 12 months, y ou worried that your food would run out before you got the money to buy more. Patient unable to answer 11/12/2024 Within the past 12 months, t he food you bought just didn't last and you didn't have money to get more. Patient unable to answer 11/12/2024 PRAPARE - Transportation Answer Date Re corded In the past 12 months, has l ack of transportation kept you from medical appointments or from getting medications? Patient unable to answer 11/12/2024 In the past 12 months, has l ack of transportation kept you from meetings, work, or from getting things needed for daily living? Patient unable to answer 11/12/2024 Housing Stability Vital Sign Answer Nelson e Recorded In the last 12 months, was t here a time when you were not able to pay the mortgage or rent on time? Patient unable to answer 11/12/2024 In the past 12 months, how m any times have you moved where you were living? 0 11/12/2024 At any time in the past 12 m [facility], were you homeless or living in a alf (including now)? Patient unable to answer 11/12/2024 Sex and Gender Information Value Date Recorded Sex Assigned at Female 11/10/2024 6:28 AM EDT Gender Identity Female 11/10/2024 6:28 AM EDT Sexual Orientation Choose not to disclose 2024 6:28 AM EDT documented as of this encounter Last Filed Vital Signs Vital Sign Reading Time Taken Comments Blood Pressure 164/91 11/18/2024 7:51 AM EDT Pulse 89 11/18/2024 7:51 AM EDT Temperature 35.4 ??C (95.7 ??F) 11/18/2024 7 :51 AM EDT Respiratory Rate 18 11/18/2024 7:51 AM EDT Oxygen Saturation 97% 11/18/2024 7:5 1 AM EDT Inhaled Oxygen Concentration - - Weight 86.5 kg (190 lb 11.2 oz) 11/18/2024 6:52 AM EDT Height 154.9 cm (5' 1 ) 11/10/2024 3:00 PM EDT per pt mother Body Mass Index 36.03 11/10/2024 3:00 PM EDT documented in this encounter Discharge Summaries * Srinivasan Mattson MD - 11/18/2024 11:32 AM EDT Inpatient Discharge Summary [facility] Brief Overview Patient Demographics Name: Marli Hanna :1970 Admission Date: 11/10/2024 Admitting Provider: Luke King MD Discharge Date: 11/18/2024 Discharge Provider: No att. providers found Discharge Disposition: Home Or Self Care Primary Care Provider at Discharge: No primary care provider on file. Primary Discharge Diagnosis Principal Problem: Cardiac arrest (HCC) (POA: Yes) Resolved Problems: Discharge Medications Discharge Medications NEW MEDICATIONS * apixaban 5 MG tablet; Quantity: 14 tablet; Commonly known as: ELIQUIS; 10 mg, Oral, Every 12 hours scheduled * apixaban 5 MG tablet; Quantity: 60 tablet; Commonly known as: ELIQUIS; 5 mg, Oral, Every 12 hours scheduled; Start taking on: November 22, 2024 empagliflozin 10 MG tablet; Quantity: 90 tablet; Commonly known as: JARDIANCE; 10 mg, Oral, Daily ferrous sulfate 325 (65 FE) MG EC tablet; Quantity: 30 tablet; 325 mg, Oral, Daily, Take 2 hours before or 4 hours after acid reducers. furosemide 20 MG tablet; Quantity: 60 tablet; Commonly known as: LASIX; 40 mg, Oral, Daily sacubitril-valsartan 24-26 mg per tablet; Quantity: 60 tablet; Commonly known as: ENTRESTO; 1 tablet, Oral, 2 times daily * There are duplicate medications prescribed to the patient CHANGED MEDICATIONS carvedilol 6.25 MG tablet; Quantity: 120 tablet; What changed: how much to take; Commonly known as: COREG; 12.5 mg, Oral, 2 times daily CONTINUED MEDICATIONS amLODIPine 10 MG tablet; Commonly known as: NORVASC; 1 tablet, Oral, 2 times daily Aspirin Low Dose 81 MG EC tablet; Generic drug: aspirin enteric coated; 81 mg, Oral, Daily atorvastatin 40 MG tablet; Commonly known as: LIPITOR; 40 mg, Oral, Nightly famotidine 20 MG tablet; Commonly known as: PEPCID; 20 mg, Oral, Nightly glipiZIDE 10 MG tablet; Commonly known as: GLUCOTROL; 1 tablet, Mouth/Oral Cavity, Every 12 hours levothyroxine 137 MCG tablet; Commonly known as: SYNTHROID, LEVOTHROID; 137 mcg, Oral, Every morning metFORMIN 500 MG 24 hr tablet; Commonly known as: GLUCOPHAGE-XR; 2 tablets, Oral, 2 times daily Trulicity 1.5 MG/0.5ML prefilled pen injection; Generic drug: dulaglutide; 1.5 mg, Subcutaneous, Weekly STOPPED MEDICATIONS lisinopril 40 MG tablet; Commonly known as: PRINIVIL,ZeSTRIL; metoPROLOL TARTRATE 100 MG tablet; Commonly known as: LOPRESSOR; sodium bicarbonate 650 MG tablet; No future appointments. Follow Up Information [facility] [place] [facility] Specialty: Cardiology Details of Hospital Stay Hospital Course A 54-year-old female with a medical history of recently diagnosed non-ischemic cardiomyopathy (NICM) with an ejection fraction (EF) of 25%, hypertension, hyperlipidemia, chronic kidney disease (CKD),hypothyroidism, and a recent PEA cardiac arrest in September 2024, was transferred from [place] after[place] episode of unresponsiveness. Upon admission, she was diagnosed with acute pulmonary edema and acute respiratory failure. Transthoracic echocardiogram (TTE) showed severely diminished left ventricular (LV) function, normal right ventricular (RV) size and function, and an LV internal dimension (LVIDD) of 5.6 cm. A mildly elevated high-sensitivity troponin was noted. Additionally, she was diagnosed with an acute right common femoral vein (CFV) deep vein thrombosis (DVT) and started on anticoagulation. She was diuresed with a negative fluid balance of -5 L, transitioned from nasal cannula to room air, and clinically approached euvolemia. During her hospitalization, she was managed for acute respiratory failure and pulmonary edema. She was closely monitored with cardiac telemetry and received diuretic therapy with furosemide 40 mg daily, closely tracking her fluid balance, electrolytes, and renal function. Her chronic conditions, including type 2 diabetes, hypertension, hyperlipidemia, CKD, hypothyroidism, obesity, and anemia, were managed appropriately. A nuclear stress test from September 2024 revealed a positive fixed area of ischemia with hypokinesia in the mid, basal, and apical inferior haq. On 11/16/24, right and left heart catheterizations (RHC and LHC) revealed minimal nonobstructive coronary artery disease (CAD) with a small ramus intermedius stenosis. Right heart pressures were unremarkable, with a mildly elevated LV end-diastolic pressure (LVEDP) of 23-25 mmHg. The degree of her heart failure with reduced ejection fraction (HFrEF) did not match her catheterization results, supporting a diagnosis of NICM. The patient is being discharged with a management plan that includes continued monitoring with cardiac telemetry and a 2g sodium diet. Diuretic therapy will continue with furosemide 40 mg daily po. She will remain on guideline-directed medical therapy (GDMT) including Entresto, Coreg, and Jardiance. Spironolactone 12.5 mg will be started on an outpatient basis. Coreg will be increased to 12.5 mg twice daily, and she will be discharged on oral Lasix 40 mg. Follow-up appointments will be scheduled to continue monitoring her progress. Her heparin drip to Eliquis loading dose 10 mg twice daily for the first 7 days then 5 mg twice daily for 3 months for DVT treatment. Changes in medications and follow-up -Continue anticoagulation with Eliquis as prescribed -Started GDMT of Entresto, Jardiance and Coreg -Spironolactone 12.5 mg to be added on outpatient basis -Started p.o. ferrous sulfate -Follow-up with director of creative services clinic Procedures: Surgical/Procedural Cases on this Admission Case IDs Date Procedure Surgeon Location Status [id number] 11/16/24 CORONARY ANGIO W/LV+LT/RT CATH Carlos Herman MD [employer] Comp Physical Exam at Discharge Discharge Condition: good Last Vitals: Pulse:89,Resp:18,BP:(!) 164/91,SpO2:97 %,Weight: 86.5 kg (190 lb 11.2 oz) BMI: Body mass index is 36.03 kg/m??. Temp Last 24 hrs: Temp Min: 95.7 ??F (35.4 ??C) Max: 96.7 ??F (35.9 ??C) Physical Exam Constitutional - alert. not in acute distress. Head - normocephalic and atraumatic. Cardiovascular - normal rate. normal heart sounds. Pulmonary - breath sounds present bilaterally. no wheezing and no crackles. Abdominal - soft. Skin - warm. Neurological - alert and oriented x 4. Discharge Orders Amb Referral to Cardiology Referral Priority: Routine Referral Type: Cardiology Referral Reason: Consult Requested Specialty: Cardiovascular Disease Number of Visits Requested: 1 Activity as tolerated DISCHARGE DIET Diet Restricted Diet Diet Restrictions Cardiac (heart healthy) Code Status: Code Status Procedures Full Code 4. Next of Kin (Spouse, Adult Child, Parent, Adult Sibling, Grandparent): Scott Powell - Adult child - [phone] 4. Next of Kin (Spouse, Adult Child, Parent, Adult Sibling, Grandparent): Benito Hanna - Adult child - [phone] 4. Next of Kin (Spouse, Adult Child, Parent, Adult Sibling, Grandparent): Alfred Rios - Adult child - [phone] Activity Restrictions: (including driving, showering, working) None Time Spent on Discharge Total time spent for discharge:40 minutes Time was spent in educating the patient, making a comprehensive discharge plan and discussion with the staff regarding the discharge plan, medication reconciliation and discharge summary Srinivasan Mattson MD 11/18/2024 4:25 PM documented in this encounter Discharge Instructions * Appointments* Isi Valladares RN - 11/16/2024 3:18 PM EDT New PCP appointment: Dr. Ruth Meyers November 26 at 2:15pm [address] [place] [address] * Discharge Instr - Incision/Wound/Pressure Ulcer/Ostomy* Marilyn Robertson RN - 11/11/2024 2:19 PM EDT 1. Routine interventions per skin Injury prevention and treatment interventions per protocol: Low air loss bed, dry flow pads under patient, Q2 turns, waffle cushion when OOB to chair, limit sit times to 1 hr (may extend to 2 hours if no sacral or posterior wounds) with frequent weight shifts. Elevate heels off bed with pillows or boots. 2. Optimize nutrition per RD recommendations. Glucose control. 3. Progress mobility per MDs orders. 4. Protective sacral foam dressing q3d and prn, remove and reapply for twice daily skin assessments * Attachments The following attachments cannot be sent through Care Everywhere. * Femoral Site Care (Cuban) * Radial Site Care (Cuban) documented in this encounter Medications at Time of Discharge Medication Sig Dispensed Refills Start Date End Date amLODIPine (NORVASC) 10 MG tablet Take 1 tablet (10 mg total) by mouth 2 times a day. apixaban (ELIQUIS) 5 MG tabletIndications:Cardi omyopathy (HCC) Take 2 tablets (10 mg total) by mouth every 12 (twelve) hours around the clock. 14 tablet 11/18/2024 apixaban (ELIQUIS) 5 MG tabletIndications:Cardi omyopathy (HCC) Take 1 tablet (5 mg total) by mouth every 12 (twelve) hours around the clock. Do not start before November 22, 2024. 60 tablet 11/22/2024 12/22/2024 Aspirin Low Dose 81 MG EC tablet Take 1 tablet (81 mg total) by mouth daily. atorvastatin (LIPITOR) 40 MG tablet Take 1 tablet (40 mg total) by mouth nightly. carvedilol (COREG) 6.25 MG tabletIndications:Cardi omyopathy (HCC) Take 2 tablets (12.5 mg total) by mouth 2 times a day. 120 tablet 11/18/2024 12/18/2024 empagliflozin (JARDIANCE) 10 MG tabletIndications:Cardi omyopathy (HCC) Take 1 tablet (10 mg total) by mouth daily. 90 tablet 3 11/18/2024 11/13/2025 famotidine (PEPCID) 20 MG tablet Take 1 tablet (20 mg total) by mouth nightly. ferrous sulfate 325 (65 FE) MG EC tabletIndications:Cardi omyopathy (HCC) Take 1 tablet (325 mg total) by mouth daily. Take 2 hours before or 4 hours after acid reducers. 30 tablet 11/18/2024 12/18/2024 furosemide (LASIX) 20 MG tabletIndications:Cardi omyopathy (HCC) Take 2 tablets (40 mg total) by mouth daily. 60 tablet 11/18/2024 12/18/2024 glipiZIDE (GLUCOTROL) 10 MG tablet 1 tablet (10 mg total) by Mouth/Oral Cavity route every 12 hours. 10/22/2024 levothyroxine (SYNTHROID, LEVOTHROID) 137 MCG tablet Take 137 mcg by mouth every morning. metFORMIN (GLUCOPHAGE-XR) 500 MG 24 hr tablet Take 2 tablets (1,000 mg total) by mouth 2 times a day. sacubitril-valsartan (ENTRESTO) 24-26 mg per tabletIndications:Cardi omyopathy (HCC) Take 1 tablet by mouth 2 (two) times a day. 60 tablet 11/18/2024 12/18/2024 Trulicity 1.5 MG/0.5ML prefilled pen injection Inject 1.5 mg under the skin once a week. documented as of this encounter Progress Notes * Hannah Abdul RN - 11/18/2024 9:28 AM EDT 11/18/24 0928 Plan Plan Home with family Patient/Family in Agreement with Plan yes Final Discharge Disposition Code 01 - home or self-care Final Case Management Care Plan Note Summary: Per provider, patient is medically ready to transition home. Confirmed that patient is able to obtain medications/food/necessities post discharge. Final Destination: Home Plan for home support/Caregiver/responsible person: Self, family Follow-up provider appointment: Per AVS/W-10 Equipment Ordered and Given at Discharge: Rolling walker Final Discharge Transportation: Family * Srinivasan Mattson MD - 11/17/2024 4:11 PM EDT Cardiology Hospitalist Progress Note Principal Problem: Cardiac arrest (HCC) (POA: Yes) Resolved Problems: Assessment & Plan 54-year-old female with recently diagnosed NICM EF 25%, hypertension, hyperlipidemia, CKD, hypothyroidism, PEA cardiac arrest September 2024 transferred from [place] following an episode of unresponsiveness. Found to have acute pulmonary edema and acute respiratory failure. TTE demonstrates severely d iminished LV function, normal RV size and function, LVIDD 5.6cm, high- sensitivity troponin is mildly elevated. Diagnosed with acute R CFV DVT and started on anticoagulation. Patient was diuresed and transition to nasal cannula and eventually to room air. She has a negativefluid balance of -5 L and clinically close to euvolemia. GDMT with Entresto/Coreg/Jardiance. LHC/RHC done on 11/16 Assessment Acute medical issues: Acute respiratory failure with hypoxemia, resolved Cardiac arrest not TTM candidate Acute on chronic decompensated HFrEF, stage C AHA Pulmonary edema IVCD GILBERTO on CKD stage III Streptococcal pneumonia Acute metabolic encephalopathy Acute right CFV DVT Chronic conditions: Type 2 diabetes, A1c 6.0 Hypertension Hyperlipidemia CKD Hypothyroidism Anemia, normocytic and normochromic, Obesity BMI 36 Plan -Continue monitoring cardiac telemetry -2 g sodium diet - Continue diuretic therapy with furosemide 40 mg daily, closely monitor fluid balance, electrolytestatus and renal function. Consider transition to oral diuretic - GDMT with Entresto 24-26 mg twice daily, Jardiance 10 mg daily -nuclear stress test on 09/23 demonstrates a positive fixed area of ischemia with hypokinesia over the mid inferior, basal inferior, and apical inferior wall -11/16/24 RHC and LHC: minimal nonobstructive CAD, small ramus intermedius moderate to severe stenosis. R heart pressures were unremarkable other than a mildly elevated LVEDP - . Her degree of HFrEF does not match cath results, suggesting she has NICM. -Start spironolactone 12.5 mg on outpatient basis -Will switch the heparin drip to p.o. DOAC -Increased his Coreg to 12.5 mg twice daily -Will discharge on p.o. Lasix 40 mg DVT PROPHYLAXIS Risk Assessment Scores and Dates: VTE Time Out IMPROVE SCORE: 2 (11/10/2024 9:01 AM) Interpretation - High Risk Chemical Prophylaxis heparin (porcine) 1000 unit/mL injection 2,600 Units Intravenous Every 6 hours PRN heparin (porcine) 1000 unit/mL injection 1,700 Units Intravenous Every 6 hours PRN heparin (porcine) IV infusion 25,000 units in 500 mL 0.45% NaCl (premix) Intravenous Continuous Heparin (Porcine) in NaCl, Enoxaparin Sodium 90 mg Last dose 11/15/2024 12:33 PM Heparin (Porcine) in NaCl, Heparin Sodium (Porcine) 5000 Units Last dose 11/16/2024 4:56 PM Mechanical Prophylaxis Mechanical VTE prophylaxis NOT ordered. Click here to order if appropriate Subjective LOS: Day 7 Patient seen this morning, no acute events overnight She is sitting comfortably in bed, no complaints or concerns Objective Last Vitals Pulse:80,Resp:18,BP:134/65,SpO2:98 %,Weight:86.4 kg (190 lb 7.6 oz) Temp Last 24 hrs: Temp Min: 96 ??F (35.6 ??C) Max: 97.2 ??F (36.2 ??C) Intake/Output Summary (Last 24 hours) at 11/17/2024 1611 Last data filed at 11/17/2024 1330 Gross per 24 hour Intake 1262.03 ml Output 560 ml Net 702.03 ml Physical Exam Constitutional:-awake, alert, oriented in no distress SKIN: Inspection of the skin reveals no rashes, ulcerations or petechiae. HEENT:-Normocephalic, Atraumatic,PEERLA, EOMI, no conjuctival jaundice or erythema noted,Mucous membranes moist, External ears w/o mass. External Ears w/o lesion, Nose w/o mass or lesion, Oropharynx w/o erythema, Oropharynx w/o edema. Neck:-Supple, no JVD, no carotid bruits, no thyroid masses or lymphadenopathy, trachea in the middle. Chest:-CTA, no wheezes, no rales, no rhonchi, equal breath sounds. CVS:-RRR, normal S1, normal S2, no S3, no S$, no click, gallops or murmurs, carotid upstroke is 2+ bilaterally with no bruit Abd:-soft, NT, BS active, no rebound, rigidity or guarding, no hernias, no venous distension, no bruits audible Extr:-well perfused, no edema, no cyanosis, no calf tenderness. Neurological Normal gait, No focal deficit, Normal speech, Normal tone, Strength equal bilateral, Reflexes equal bilateral, Sensation intact, Cranial nerves intact. Musculoskeletal:-No deformities. Skin:-No bruises, no echymosis, no petechias. Relevant data reviewed Labs and Radiology Notable labs are: No results found for: CK , HEATHER , TNI , BNP Lab Results Component Value Date PROBNP 2,385 (H) 11/10/2024 No results found for: HEATHER , TNI Lab Results Component Value Date WBC 7.1 11/17/2024 HGB 9.0 (L) 11/17/2024 HCT 29.2 (L) 11/17/2024 PLT 286 11/17/2024 Lab Results Component Value Date NA 137 11/17/2024 K 3.9 11/17/2024 CL 102 11/17/2024 CO2 20 (L) 11/17/2024 CO2 24 11/12/2024 BUN 32 (H) 11/17/2024 CREAT 1.2 (H) 11/17/2024 GLUC 128 (H) 11/17/2024 GLUC 138 (H) 11/17/2024 Lab Results Component Value Date TSH 2.76 11/10/2024 Imaging Studies Vas Venous Duplex - Leg Result Date: 11/11/2024 Table formatting from the original result was not included. Department: [facility] Patient: [id number] (MARLI HANNA) Patient Location: ..[address] CPT Code: [address]453 ICD-9: Referring Physician: EDEL Erazo Critical Findings: [place] was given to ADDI Flores by Tegan El RVT at 11:41 am on 11/11/2024. Result: partial acute thrombus of right CFV Read Back Performed: Yes Right lower extremity venous duplex ultrasound exam demonstrates acute thrombus involving the common femoral vein. Diagnosis of acute thrombosis is supported by a low level of echogenicity of the thrombus in the distended vein. The remainder of the deep system is patent. Left lower extremity venous duplex ultrasound exam demonstrates normalDoppler flow with no thrombus seen in dan scale. Findings are not consistent with the presence of deep vein thrombosis. Indications Bilateral Swelling of Limb [M79.89]. 54 year old female presents with bilateral leg swelling. Findings: Right Impression Phasic Compressible Common Femoral Vein AcutePartial Thrombus Yes Partial Proximal femoral vein Normal Complete Mid femoral vein Normal CompleteDistal femoral vein Normal Complete Popliteal Normal Complete Posterior Tibial Vein Normal CompletePeroneal Normal Complete GSV Saphenofemoral junction Normal Complete Left Impression Phasic Compressible Common Femoral Vein Normal Yes Complete Proximal femoral vein Normal Complete Mid femoral veinNormal Complete Distal femoral vein Normal Complete Popliteal Normal Complete Posterior Tibial VeinNormal Complete Peroneal Normal Complete GSV Saphenofemoral junction Normal Complete ElectronicallySigned by: Mihai Vicente MD, MPH, RPVI on 2024-11-11 12:51:41 PM End of Report XR Chest 1 view-Portable Result Date: 11/11/2024 EXAMINATION: XR CHEST CLINICAL INFORMATION: Confirm ETT, s/p retraction. COMPARISON: XR Chest 11/10/2024 at 0645 hours TECHNIQUE: Frontal view of the chest was obtained on 11/10/2024 at 1501 hours. HEART & VASCULARITY: There are moderate cardiomegaly and increased pulmonary vascularity. LUNGS: Lungs are hypoinflated. Extensive alveolar infiltrates are seen in bilateral lungs. No pneumothorax is seen. LINES & SUPPORTING TUBES: Endotracheal tube is seen ending at 5.5 cm above sarah. Enteric tube is seen coiled up in left upper quadrant of abdomen. 1. Unchanged moderate cardiomegaly and pulmonary venous congestion. 2. Persistent hypoinflated lungs with Extensive alveolar infiltrates compatible with pulmonary edema due to congestive heart failure or bronchopneumonia. 3. Interval retraction of endotracheal tube away from sarah. 4. No interval change in position of coiled up enteric tube. XR Chest 1 view-Portable (STAT) Result Date: 11/11/2024 EXAMINATION: XR CHEST CLINICAL INFORMATION: Readjusted ET tube COMPARISON: Chest x-ray on 11/10/2024t 1501 hours TECHNIQUE: Frontal view of the chest was obtained on 11/11/2024 at 0527 hours. FINDINGS: HEART & VASCULARITY: There are moderate cardiomegaly and increased pulmonary vascularity. LUNGS: Lungs are hypoinflated. Extensive alveolar infiltrates are seen in bilateral lungs. No pneumothorax is seen. LINES & SUPPORTING TUBES: Endotracheal tube is seen ending at 1.0 cm above sarah. Enteric tube is seen coiled up in left upper quadrant of abdomen. 1. Unchanged moderate cardiomegaly and pulmonary venous congestion. 2. Unchanged hypoinflated lungswith Extensive alveolar infiltrates compatible with pulmonary edema due to congestive heart failureor bronchopneumonia. 3. Interval advancement of endotracheal tube close to sarah. 4. No interval change in position of coiled up enteric tube. XR Abdomen 1 view Result Date: 11/10/2024 EXAMINATION: XR ABDOMEN KUB CLINICAL INDICATION: Confirm OGT. COMPARISON: No prior plain film examination of the abdomen. Chest x-ray dated November 10, 2024. TECHNIQUE: Supine AP view of the abdomen. FINDINGS: The lower abdomen and right abdomen are cut off the image. The tip and sidehole of a presumed nasogastric tube project over the left upper quadrant, below the diaphragm. Suspect hepatosplenomegaly. No evidence of intestinal obstruction or free air. Mild degenerative changes of the spine. The patient is status post cholecystectomy. No acute finding. Echocardiogram (TTE) Comprehensive (Contrast PRN) Result Date: 11/10/2024 Left ventricular systolic function is severely decreased. The quantitative EF by 2D Zimmerman biplaneis 25%. Right ventricular systolic function is normal. Valve structure and function are normal. There is no previous study for comparison in our system. XR Chest 1 view-Portable Result Date: 11/10/2024 EXAMINATION: XR CHEST 1 VIEW-PORTABLE CLINICAL HISTORY: 54f s/p arrest; xfer [facility]; HARPREET;diminished bases; eval tube placement/ptx COMPARISON: Earlier same day FINDINGS: Tip of ETT terminates over the left mainstem bronchus approximately 2.5 cm distal of the bifurcation. Recommend retraction. The NG tube is stable. Persistent and unchanged symmetric bilateral interstitial and airspace opacities. No pneumothorax. Stable heart size and mediastinal contours. The aortic knob is poorly defined. 1. ETT placement. Recommend retraction. 2. Stable bilateral infiltrates. 3. Superior mediastinal prominence. Consider CT follow-up correlation as clinically warranted. This may reflect technique. RECOMMENDATIONS: MAN Archive for reference only CR Result Date: 11/10/2024 This order has been auto-finalized and does not contain a result. MAN Archive for reference only CR Result Date: 11/10/2024 This order has been auto-finalized and does not contain a result. Sign Srinivasan Mattson MD 11/17/2024 4:11 PM * Nan Dietz MD - 11/17/2024 1:55 PM EDT CARDIOLOGY FELLOWS SERVICE PROGRESS NOTE Date of Consult: 11/17/2024 Patient's Primary Care Physician: No primary care provider on file. Reason for Consultation: s/p arrest ; HFrEF exacerbation Admit Date: 11/10/2024 6:20 AM Assessment & Plan 54-year-old female with a history of obesity, hypothyroidism, CKD, hypertension, hyperlipidemia, and recently diagnosed HFrEF (25%) secondary to a suspected prior PEA cardiac arrest in September 2024 who was transferred from outside hospital following an unresponsive episode, concerning for an another cardiac arrest vs respiratory arrest. Family said patient collapsed in car on arrival to ED; unclear if she had true loss of pulses and what initial rhythm was. Upon transfer to , she was deemed not a candidate for TTM; cardiology have been consulted for further recommendations 2 unresponsive episodes. Recurrent Collapse secondrary to acute pulmonary edema Acute decompensated heart failure History of recently diagnosed HFrEF (25%) Chronic Kidney Disease stage 3 Hypertension Hyperlipidemia Hypothyroidism Obesity Diabetes mellitus (A1c 6.0) Likely undiagnosed obstructive sleep apnea Acute R common femoral partial DVT TTE 11/10/2024: Normal LV size, eccentric hypertrophy, severely decreased LV function, global anginal strain is -6.3%, global hypokinesis, normal RV size and function, normal atria, no valvular disease, no pericardial effusion. LVIDD 5.6 cm WNL; LVOT VTI 16.1 cm Troponins have downtrended (79 --> 70). Creatinine better with diuresis (1.8 --> 1.5) Transferrin 189, ferritin 114, iron sat 7, iron 16, HIV negative Bilateral leg DVT studies : R partial DVT Bilateral renal artery ultrasound normal (but was done without dopplers) 11/16/24 RHC and LHC: minimal nonobstructive CAD, small ramus intermedius moderate to severe stenosis. R heart pressures were unremarkable other than a mildly elevated LVEDP 23 - 25. Her degree of HFrEF does not match cath results, suggesting she has NICM. Plan -- From our perspective, patient can be discharged. We can further work-up her HFrEF outpatient. Liban arrange for her to have followup with director of creative services clinic. She should go home on PO [id number] daily. She needs to weigh herself unclothed at home on the day of discharge as this will be her dry weight. She needs to weigh herself daily and take an extra dose of lasix if her weight goes upby 5 pounds and call the clinic. - Resume jardiance 10mg daily -- Increase coreg 6.25 bid to 12.5mg bid -- Start entresto 24-26mg bid -- Start spironolactone 12.5mg bid tomorrow or when we see her outpatient, we can start it -- Patient can swap to oral anticoagulation for DVT - Continue aspirin 81mg daily - Continue atorvastatin 40mg daily - Patient should start iron supplementation prior to discharge - Please maintain on telemetry. Monitor BMP/mag closely; please aim for K 4< and Mg 2<. -- Patient may benefit from a GLP-1 agonist ; should discuss with her PCP following discharge. She should also get tested for sleep apnea formally. Patient seen with Dr. Giraldo. The plan is considered preliminary until co- signed by the attendingphysician. Subjective Today: Patient seated in chair. Feeling much better. We discussed the above plan and she is in agreement. Hospital Presentation Summary: 54-year-old female with a history of obesity, hypothyroidism, CKD, hypertension, hyperlipidemia, and recently diagnosed HFrEF (25%) secondary to a suspected prior PEA cardiac arrest in September 2024 who was transferred from outside hospital following an unresponsive episode, concerning for an another cardiac arrest vs respiratory arrest. History obtained primarily from chart review and collateral history from patient mother and son by bedside. In September 2024, she went to an outside hospital after she was acutely short of breath and felt like she was going to . Per mother, immediately upon arrival, patient became unresponsive.Had CPR ; chart documentation details PEA arrest secondary to likely respiratory arrest. Patient was diuresed that admission; she was also found to have a new EF of 20-25%. In the chart, she is also noted to have had a nuclear stress test on 09/23 which showed a positive fixed area of ischemia with hypokinesia over the mid inferior, basal inferior, and apical inferior wall. She was discharged on amlodipine 5 mg daily, aspirin 81 mg daily, Lipitor 40 mg daily, Coreg 6.25 mg daily, Trulicity, and levothyroxine 0.137 mg daily. She was not discharged with a diuretic. Patient was planned to have outpatient cardiology appointment (family stated patient had an upcoming appointment at [facility] this week close) and also being planned for future outpatient cath and a Zio patch. However, 11/09 night, patient called her mother around 10 PM saying again that she felt like she could not breathe and was going to . On arrival, mother noted that patient was wheezing significantly and very short of breath. She seemed to also be foaming at the mouth with bubbly sputum. She immediately drove the patient to the outside hospital. However, patient became unresponsive in the parking lot per documentation. Unclear if loss of pulses and what initial rhythm may have been. Seems to have likely been a respiratory arrest-patient quickly achieved ROSC after approximately 4 minutes of CPR. When she was being intubated, vomit was noted in her area intubation. Per documentation, patient was following commands and alert just before intubation. She was transferred to [facility] for CCU evaluation and further care. In our ED, patient febrile 100.6, pulse between 80-90, respiratory rate 16, blood pressure normotensive 119/58. Labs on arrival: Hb 10.5, plts 361, na 137, K 4, cl 104, co2 19, Cr 1.8, ca 8.5, ALT 54, trop 79, probnp 2385, TSH 2.76. Latest ABG pH 7.24, CO2 51, O2 65, bicarb 23. Chest x-ray shows diffuse pulmonary congestion. She was deemed not to be a TTM candidate. Review of Systems The review of systems was negative, other than that stated above. Objective Past History No past medical history on file. Past Surgical History: Procedure Laterality Date CC CORONARY ANGIO W/LV+LT/RT CATH N/A 11/16/2024 Procedure: CORONARY ANGIO W/LV+LT/RT CATH; Surgeon: Carlos Herman MD; Location: [facility]; Service: Cardiovascular; Laterality: N/A; No family history on file. Medications Prior to Admission Medications: Medications Prior to Admission Medication Sig Dispense Refill Last Dose glipiZIDE (GLUCOTROL) 10 MG tablet 1 tablet (10 mg total) by Mouth/Oral Cavity route every 12 hours. sodium bicarbonate 650 MG tablet 1 tablet (650 mg total) by Mouth/Oral Cavity route every 12 hours. amLODIPine (NORVASC) 10 MG tablet Take 1 tablet (10 mg total) by mouth 2 times a day. Aspirin Low Dose 81 MG EC tablet Take 1 tablet (81 mg total) by mouth daily. atorvastatin (LIPITOR) 40 MG tablet Take 1 tablet (40 mg total) by mouth nightly. carvedilol (COREG) 6.25 MG tablet Take 1 tablet (6.25 mg total) by mouth 2 times a day. famotidine (PEPCID) 20 MG tablet Take 1 tablet (20 mg total) by mouth nightly. levothyroxine (SYNTHROID, LEVOTHROID) 137 MCG tablet Take 137 mcg by mouth every morning. lisinopril (PRINIVIL,ZeSTRIL) 40 MG tablet Take 1 tablet (40 mg total) by mouth daily. metFORMIN (GLUCOPHAGE-XR) 500 MG 24 hr tablet Take 2 tablets (1,000 mg total) by mouth 2 times a day. metoPROLOL TARTRATE (LOPRESSOR) 100 MG tablet Take 1 tablet (100 mg total) by mouth 2 times a day. Trulicity 1.5 MG/0.5ML prefilled pen injection Inject 1.5 mg under the skin once a week. Current Medications / MAR: Medications Scheduled Medication Ordered Dose/Rate, Route, Frequency Last Action [Provider Held] amLODIPine (NORVASC) tablet 10 mg On hold since 11/13/2024 at 1542 until manually unheld; held by Hiram Olmedo Reason: NPO On hold since 11/13/2024 at 1542 until manually unheld (Needs Review) Hold reason: NPO 10 mg, PO, BID Ordered aspirin chewable tablet 81 mg 81 mg, PO, Daily Given, 81 mg at 11/17 942 atorvastatin (LIPITOR) tablet 40 mg 40 mg, PO, Daily Given, 40 mg at 11/17 942 carvedilol (COREG) tablet 6.25 mg 6.25 mg, PO, BID with meals Given, 6.25 mg at 11/17 942 cefUROXime (CEFTIN) tablet 500 mg 500 mg, PO, Q12H MILO Given, 500 mg at 11/17 942 chlorhexidine gluconate 2 % wipes - central line CHG application No Dose/Rate, TOP, Daily Given, 1 each at 11/11 1252 [Provider Held] empagliflozin (JARDIANCE) tablet 10 mg On hold since Fri11/15/2024 at 1500 until manually unheld; held by Andrea Cain Reason: Pre-procedure On hold since 11/15/2024 at 1500 until manually unheld (Needs Review) Hold reason: Pre-procedure 10 mg, PO, Daily Given, 10 mg at 11/15 0911 famotidine (PEPCID) tablet 20 mg 20 mg, PO, Daily Given, 20 mg at 11/17 0943 [Provider Held] furosemide (LASIX) injection 40 mg On hold since yesterday at 0703 until manually unheld; held by Clemente Young Reason: Pre-procedure On hold since yesterday at 0703 until manually unheld (Needs Review) Hold reason: Pre-procedure 40 mg, IV, Daily Ordered insulin lispro (HumaLOG/ADMELOG) 100 units/mL injection 1-6 Units 1-6 Units, SC, TID with meals Given, 1 Units at 11/15 1233 levothyroxine (SYNTHROID, LEVOTHROID) tablet 137 mcg 137 mcg, PO, Daily 6AM Given, 137 mcg at 11/17 0621 multivitamin tablet 1 tablet 1 tablet, PO, Daily Given, 1 tablet at 11/17 0943 senna-docusate (SENNA-S) 8.6-50 MG tablet 2 tablet 2 tablet, PO, Nightly Given, 2 tablet at 11/13 2138 thiamine mononitrate (VITAMIN B-1) tablet 200 mg 200 mg, PO, Daily Given, 200 mg at 11/17 0944 Continuous Medication Ordered Dose/Rate, Route, Frequency Last Action heparin (porcine) IV infusion 25,000 units in 500 mL 0.45% NaCl (premix) 15 Units/kg/hr, IV, Continuous Rate Change - High Risk Medication, 14 Units/kg/hr at 11/17 1250 PRN Medication Ordered Dose/Rate, Route, Frequency Last Action acetaminophen (TYLENOL) tablet 650 mg 650 mg, PO, Q6H PRN Given, 650 mg at 11/16 2109 bisacodyl (DULCOLAX) suppository 10 mg 10 mg, RE, Daily PRN Ordered dextrose 50 % solution 12.5 g (Or Linked Group #1) 12.5 g, IV, Q15 Min PRN Ordered dextrose 50 % solution 25 g (Or Linked Group #1) 25 g, IV, Q15 Min PRN Ordered glucagon (GLUCAGEN) injection 1 mg (Or Linked Group #1) 1 mg, IM, Daily PRN Ordered glucose (GLUTOSE 15) 40 % oral gel 37.5 g (Or Linked Group #1) 1 Tube, PO, Q15 Min PRN Ordered glucose (GLUTOSE 15) 40 % oral gel 75 g (Or Linked Group #1) 2 Tube, PO, Q15 Min PRN Ordered heparin (porcine) 1000 unit/mL injection 1,700 Units 20 Units/kg, IV, Q6H PRN Ordered heparin (porcine) 1000 unit/mL injection 2,600 Units 30 Units/kg, IV, Q6H PRN Ordered lactulose (ENULOSE) 10 gm/15 mL solution 20 g 30 mL, PO, Q4H PRN Ordered naloxone (NARCAN) 0.4 mg/mL injection 0.4 mg 0.4 mg, IV, Q5 Min PRN Ordered perflutren lipid microsphere (DEFINITY) 1.3 mL in sodium chloride (NS) 0.9 % 10 mL 0.5-8 mL, IV, Once in imaging Ordered Allergies No Known Allergies Vital Signs Pulse:80,Resp:18,BP:134/65,SpO2:98 %,Weight:86.4 kg (190 lb 7.6 oz) Temp Last 24 hrs: Temp Min: 96 ??F (35.6 ??C) Max: 97.2 ??F (36.2 ??C) Intake/Output Summary (Last 24 hours) at 11/17/2024 1355 Last data filed at 11/17/2024 1201 Gross per 24 hour Intake 1042.03 ml Output 760 ml Net 282.03 ml Physical Examination General: Well-developed. Well-nourished. Resting comfortably. Obese. HEENT: Normocephalic, atraumatic. PERRLA. EOMI. Mucous membranes moist. Neck: Difficult to assess JVP Cardiovascular: Regular rate. Regular rhythm. No murmrs, gallops, or rubs. Respiratory: Adequate respiratory effort. Wheezing Abdomen: Soft. Nondistended. Nontender. No rigidity or guarding. Normoactive bowel sounds. Extremities: no sacral or bilateral lower extremity edema. Skin: Warm, dry. Neurologic: Awake. Alert. No gross focal deficits. Moves all four extremities spontaneously. Relevant Data Reviewed: Results from last 7 days Lab Units 11/17/24 1208 11/17/24 1032 11/17/24 0753 11/16/24 1209 11/16/24 0750 11/15/24 1204 11/15/24 0840 11/11/24 0336 11/11/24 0001 SODIUM mmol/L -- 137 -- -- 134* -- 134* < > 139 POTASSIUM mmol/L -- 3.9 -- -- 3.7 -- 3.8 < > 3.8 CHLORIDE mmol/L -- 102 -- -- 99 -- 96* < > 107 CO2 mmol/L -- 20* -- -- 23 -- 26 < > 22 CO2, TOTAL -- -- -- -- -- -- -- < > -- BUN mg/dL -- 32* -- -- 43* -- 45* < > 33* CREATININE mg/dL -- 1.2* -- -- 1.4* -- 1.6* < > 1.7* CALCIUM mg/dL -- 9.6 -- -- 9.7 -- 9.9 < > 8.8 GLUCOSE mg/dL -- 138* -- -- 115* -- 117* < > 139* GLUCOSE, POC mg/dL 128* -- 100* < > -- < > -- < > -- EGFR -- 54* -- -- 45* -- 38* < > 36* ALBUMIN g/dL -- -- -- -- -- -- -- -- 3.5 PROTEIN, TOTAL g/dL -- -- -- -- -- -- -- -- 7.4 BILIRUBIN TOTAL mg/dL -- -- -- -- -- -- -- -- 0.8 ALK PHOS U/L -- -- -- -- -- -- -- -- 96 ALT U/L -- -- -- -- -- -- -- -- 49 AST U/L -- -- -- -- -- -- -- -- 36 < > = values in this interval not displayed. Lab Results Component Value Date MG 2.1 11/16/2024 Results from last 7 days Lab Units 11/17/24 0832 11/16/24 0750 11/15/24 1928 11/11/24 2343 11/11/24 1243 WHITE BLOOD CELL COUNT Thou/uL 7.1 7.7 7.4 < > 6.3 HEMOGLOBIN g/dL 9.0* 9.4* 9.4* < > 8.5* HEMATOCRIT % 29.2* 30.1* 29.8* < > 28.1* PLATELET COUNT Thou/uL 286 300 304 < > 202 NEUTROS PCT % -- -- 58.6 -- 69.4 LYMPHS PCT % -- -- 25.3 -- 17.9 MONOS PCT % -- -- 10.9 -- 11.7 EOS PCT % -- -- 0.3 -- 0.3 BASOS PCT % -- -- 0.3 -- 0.2 < > = values in this interval not displayed. Lab Results Component Value Date HSTNT 70 () 11/10/2024 HSTNT 79 () 11/10/2024 Lab Results Component Value Date PROBNP 2,385 (H) 11/10/2024 Lab Results Component Value Date HGBA1C 6.0 (H) 11/12/2024 No results found for: CHOL No results found for: HDL No results found for: LDLCALC Lab Results Component Value Date TRIG 210 (H) 11/10/2024 No results found for: CHOLHDL ECG: TELE: Imaging Studies: Echocardiogram (TTE) Comprehensive (Contrast PRN) Result Date: 11/10/2024 Left ventricular systolic function is severely decreased. The quantitative EF by 2D Zimmerman biplane is 25%. Right ventricular systolic function is normal. Valve structure and function are normal. There is no previous study for comparison in our system. Sign: Nan Dietz MD Internal Medicine PGY-2 [facility] 11/17/2024 1:55 PM Available via [employer] Text 24/03 at Crnp Consult Service Associated attestation - Yung Giraldo MD - 11/17/2024 5:16 PM EDT Ms. Hanna was seen and examined with Dr. Dietz I agree with Dr. Dietz SVS detailed recommendations for discharge. * Pao Zepeda, PT - 11/17/2024 10:07 AM EDT Physical Therapy Progress Note Assessment Summary: Marli Hanna was seen for follow-up PT session. Pt demonstrated good progress towards her PT goals. At previous session, Pt was being treated at ICU LOC and was unable to progress past bedlevel. Today, Pt ambulated in [place] w/o use of an assistive device and negotiated stairs with unilateral UE support. Pt admitted to 5/10 fatigue at conclusion of session. Discussed use of RW as energy conservation tool for community mobility, Pt receptive. Anticipate Pt will be safe to return home with assist from family PRN when medically ready for DC. Defer to primary medical team for referral to OP cardiac rehab. Safety: - Precautions/Restrictions: fall, other (see comments) (skin) - Pt cleared for participation in therapy by RN. Pt received semi-reclined in bed on RA. Pt alert, in NAD, and agreeable to participation in PT follow-up. - At conclusion of session, hand-off provided to RN. White board updated with mobility recommendations. Progress Towards Goals: progress toward functional goals is good Outcome Measures: The Activity Measure for Post-Acute Care (AM-PAC) Basic Mobility Inpatient Short Form (6-clicks) royce standardized measure used to quantify functional deficits in mobility. The total score of the measure ranges from 6-24. A higher score indicates a higher level of independence with functional mobility. Current [facility] Basic Mobility Score: 22 Rehab Plan of Care - It is imperative that Pt mobilizes daily with nursing/PROCESSING ENGINEER staff in order to maintain her current level of function and prevent further deconditioning during hospital stay. Recommend transfer<>chair for meals, use of restroom for toileting , and ambulation in pis[place] with staff at least 3x/day. - PT team will follow-up with Pt in house at 2-3x/week alirio to address the functional deficits described above in order to maximize Pt's functional independence, reduce risk for for falls, decrease risk of hospital readmission, and assist in facilitation of DC planning. 1.) PT Recommendations for Staff: SBA x 1 to ambulate 2.) PT Frequency during Hospitalization: 2-3 times/wk 3.) Plan of Care Reviewed With: patient Objective Data/Intervention Bed Mobility: Ind Transfers: Pt completed STSs w/ SBA x 1 . Pt utilized bilateral UE for push-off during performance of sit<>stand. Gait/Stairs: Pt completed three bouts of gait training (approximately 250 feet each). X 1 bout w/ RW, x 1 bout with IV pole, x 1 bout w/o device. Pt ambulated with steady reciprocal gait pattern. No LOB or LE buckling noted throughout. Pt negotiated 3 steps using step-to pattern and unilateral rail for UE support, SBA x 1 provided throughout. No LOB or LE buckling noted appreciated. Activity Tolerance: Pt was on RA for duration of session. Pt's activity tolerance was limited d/t fatigue. Pt rated her overall perceived exertion as a 5/10 at conclusion of the session. 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 Existing Precautions/Restrictions fall;other (see comments) (skin) Pain Scale: Numbers Pre/Post-Treatment Pre/Posttreatment Pain Comment Pt reported mild chest soreness, denied pain. Cognition Affect/Mental Status (Cognition) WFL Orientation Status (Cognition) oriented x 4 Coping Trust Relationship/Rapport care explained;choices provided;thoughts/feelings acknowledged;reassurance provided;questions encouraged;questions answered Observed Emotional State calm;cooperative Verbalized Emotional State acceptance Plan of Care Review Plan of Care Reviewed With patient Safety Safety WDL WDL All Alarms alarm(s) activated and audible Enhanced Safety Measures bed alarm set Progressive Mobility Progressive Mobility Level Achieved Ambulation Ambulation Distance (Feet) 250 [facility] Basic Mobility Turning from your back to your side while in a flat bed without using bedrails? 4 Moving from lying on your back to sitting on the side of a flat bed without using bedrails? 4 Moving to and from a bed to a chair (including wheelchair)? 4 Standing up from a chair using your arms? 4 To walk in a hospital room? 3 Climbing 3-5 steps with a railing? 3 [facility] Basic Mobility Score 22 Therapy Assessment/Plan (PT) Therapy Frequency (PT) 2-3 times/wk PT Recommendations for Staff SBA x 1 to ambulate Progress Summary (PT) Progress Toward Functional Goals (PT) progress toward functional goals is good Therapy Plan Review/Discharge Plan (PT) Therapy Plan Review (PT) care plan/treatment goals reviewed;participants included;patient Sign: Pao Zepeda PT Thank you for consulting PT services. If unable to contact this medical underwriter via [employer], please contact Physical Therapy PT Team. * Neil Padilla MD - 11/16/2024 12:56 PM EDT Cardiology Hospitalist Progress Note Principal Problem: Cardiac arrest (HCC) (POA: Yes) Resolved Problems: Assessment & Plan 54-year-old female with recently diagnosed NICM EF 25%, hypertension, hyperlipidemia, CKD, hypothyroidism, PEA cardiac arrest September 2024 transferred from [facility] following an episode of unresponsiveness. Found to have acute pulmonary edema and acute respiratory failure. TTE demonstrates severely d iminished LV function, normal RV size and function, LVIDD 5.6cm, high- sensitivity troponin is mildly elevated. Diagnosed with acute R CFV DVT and started on anticoagulation. Patient was diuresed and transition to nasal cannula and eventually to room air. She has a negativefluid balance of -5 L and clinically close to euvolemia. GDMT with Entresto/Coreg/Jardiance. LHC/RHC done on 11/16 with pending results. Assessment Acute medical issues: Acute respiratory failure with hypoxemia, resolved Cardiac arrest not TTM candidate Acute on chronic decompensated HFrEF, stage C AHA Pulmonary edema IVCD GILBERTO on CKD stage III Streptococcal pneumonia Acute metabolic encephalopathy Acute right CFV DVT Chronic conditions: Type 2 diabetes, A1c 6.0 Hypertension Hyperlipidemia CKD Hypothyroidism Anemia, normocytic and normochromic, Obesity BMI 36 Plan -Continue monitoring cardiac telemetry -2 g sodium diet - Continue diuretic therapy with furosemide 40 mg daily, closely monitor fluid balance, electrolytestatus and renal function. Consider transition to oral diuretic - IV chlorothiazide was discontinued - GDMT with Entresto 24-26 mg twice daily, Coreg 6.25 mg twice daily, Jardiance 10 mg daily - Workup for renal artery stenosis with arterial Doppler ongoing, would be favoring severe LV dysfunction as is the reason for cardiopulmonary decompensation - Anticoagulant was changed to IV unfractionated heparin - Recurrent admissions with flash pulmonary edema and decompensated heart failure with who were notinvestigation regarding left main disease. Will discuss with general cardiology. Would recommend [facility] -nuclear stress test on 09/23 demonstrates a positive fixed area of ischemia with hypokinesia over the mid inferior, basal inferior, and apical inferior wall - At the time discharge needs to assume medical anticoagulation with DOAC - Remains in the hospital today with ongoing diuresis and optimization of medical management and GDMT. For [facility] today DVT PROPHYLAXIS Risk Assessment Scores and Dates: VTE Time Out IMPROVE SCORE: 2 (11/10/2024 9:01 AM) Interpretation - High Risk Chemical Prophylaxis heparin (porcine) IV infusion 25,000 units in 500 mL 0.45% NaCl (premix) Intravenous Continuous heparin (porcine) 1000 unit/mL injection 2,600 Units Intravenous Every 6 hours PRN heparin (porcine) 1000 unit/mL injection 1,700 Units Intravenous Every 6 hours PRN Heparin (Porcine) in NaCl, Enoxaparin Sodium 90 mg Last dose 11/15/2024 12:33 PM Mechanical Prophylaxis Mechanical VTE prophylaxis NOT ordered. Click here to order if appropriate Subjective LOS: Day 6 Patient seen at the bedside in rounds this morning, denies chest pressure and denies lightheadedness or dizziness, no orthopnea or paroxysmal tunnel dyspnea Fluid balance negative -4.5 L from admission, even from yesterday Telemetry:-NSR Objective Last Vitals Pulse:82,Resp:18,BP:119/68,SpO2:98 %,Weight:85.3 kg (188 lb 0.8 oz) Temp Last 24 hrs: Temp Min: 96.5 ??F (35.8 ??C) Max: 97.1 ??F (36.2 ??C) Intake/Output Summary (Last 24 hours) at 11/16/2024 1256 Last data filed at 11/16/2024 0832 Gross per 24 hour Intake 1906.24 ml Output 700 ml Net 1206.24 ml Physical Exam Constitutional:-awake, alert, oriented in no distress SKIN: Inspection of the skin reveals no rashes, ulcerations or petechiae. HEENT:-Normocephalic, Atraumatic,PEERLA, EOMI, no conjuctival jaundice or erythema noted,Mucous membranes moist, External ears w/o mass. External Ears w/o lesion, Nose w/o mass or lesion, Oropharynx w/o erythema, Oropharynx w/o edema. Neck:-Supple, no JVD, no carotid bruits, no thyroid masses or lymphadenopathy, trachea in the middle. Chest:-CTA, no wheezes, no rales, no rhonchi, equal breath sounds. CVS:-RRR, normal S1, normal S2, no S3, no S$, no click, gallops or murmurs, carotid upstroke is 2+ bilaterally with no bruit Abd:-soft, NT, BS active, no rebound, rigidity or guarding, no hernias, no venous distension, no bruits audible Extr:-well perfused, no edema, no cyanosis, no calf tenderness. Neurological Normal gait, No focal deficit, Normal speech, Normal tone, Strength equal bilateral, Reflexes equal bilateral, Sensation intact, Cranial nerves intact. Musculoskeletal:-No deformities. Skin:-No bruises, no echymosis, no petechias. Relevant data reviewed Labs and Radiology Notable labs are: No results found for: CK , HEATHER , TNI , BNP Lab Results Component Value Date PROBNP 2,385 (H) 11/10/2024 No results found for: HEATHER , TNI Lab Results Component Value Date WBC 7.7 11/16/2024 HGB 9.4 (L) 11/16/2024 HCT 30.1 (L) 11/16/2024 PLT 300 11/16/2024 Lab Results Component Value Date NA 134 (L) 11/16/2024 K 3.7 11/16/2024 CL 99 11/16/2024 CO2 23 11/16/2024 CO2 24 11/12/2024 BUN 43 (H) 11/16/2024 CREAT 1.4 (H) 11/16/2024 GLUC 127 (H) 11/16/2024 GLUC 115 (H) 11/16/2024 Lab Results Component Value Date TSH 2.76 11/10/2024 Imaging Studies Vas Venous Duplex - Leg Result Date: 11/11/2024 Table formatting from the original result was not included. Department: [facility] Patient: [id number] (MARLI HANNA) Patient Location: ..[address] CPT Code: 15130 ICD-9: Referring Physician: EDEL CASAS Impression Critical Findings: [place] was given to ADDI Flores by Tegan El RVT at 11:41 am on 11/11/2024. Result: partial acute thrombus of right CFV Read Back Performed: Yes Right lower extremity venous duplex ultrasound exam demonstrates acute thrombus involving the common femoral vein. Diagnosis of acute thrombosis is supported by a low level of echogenicity of the thrombus in the distended vein. The remainder of the deep system is patent. Left lower extremity venous duplex ultrasound exam demonstrates normalDoppler flow with no thrombus seen in dan scale. Findings are not consistent with the presence of deep vein thrombosis. Indications Bilateral Swelling of Limb [M79.89]. 54 year old female presents with bilateral leg swelling. Findings: Right Impression Phasic Compressible Common Femoral Vein AcutePartial Thrombus Yes Partial Proximal femoral vein Normal Complete Mid femoral vein Normal CompleteDistal femoral vein Normal Complete Popliteal Normal Complete Posterior Tibial Vein Normal CompletePeroneal Normal Complete GSV Saphenofemoral junction Normal Complete Left Impression Phasic Compressible Common Femoral Vein Normal Yes Complete Proximal femoral vein Normal Complete Mid femoral veinNormal Complete Distal femoral vein Normal Complete Popliteal Normal Complete Posterior Tibial VeinNormal Complete Peroneal Normal Complete GSV Saphenofemoral junction Normal Complete ElectronicallySigned by: Mihai Vicente MD, MPH, RPVI on 2024-11-11 12:51:41 PM End of Report XR Chest 1 view-Portable Result Date: 11/11/2024 EXAMINATION: XR CHEST CLINICAL INFORMATION: Confirm ETT, s/p retraction. COMPARISON: XR Chest 11/10/2024 at 0645 hours TECHNIQUE: Frontal view of the chest was obtained on 11/10/2024 at 1501 hours. HEART & VASCULARITY: There are moderate cardiomegaly and increased pulmonary vascularity. LUNGS: Lungs are hypoinflated. Extensive alveolar infiltrates are seen in bilateral lungs. No pneumothorax is seen. LINES & SUPPORTING TUBES: Endotracheal tube is seen ending at 5.5 cm above sarah. Enteric tube is seen coiled up in left upper quadrant of abdomen. 1. Unchanged moderate cardiomegaly and pulmonary venous congestion. 2. Persistent hypoinflated lungs with Extensive alveolar infiltrates compatible with pulmonary edema due to congestive heart failure or bronchopneumonia. 3. Interval retraction of endotracheal tube away from sarah. 4. No interval change in position of coiled up enteric tube. XR Chest 1 view-Portable (STAT) Result Date: 11/11/2024 EXAMINATION: XR CHEST CLINICAL INFORMATION: Readjusted ET tube COMPARISON: Chest x-ray on 11/10/2024t 1501 hours TECHNIQUE: Frontal view of the chest was obtained on 11/11/2024 at 0527 hours. FINDINGS: HEART & VASCULARITY: There are moderate cardiomegaly and increased pulmonary vascularity. LUNGS: Lungs are hypoinflated. Extensive alveolar infiltrates are seen in bilateral lungs. No pneumothorax is seen. LINES & SUPPORTING TUBES: Endotracheal tube is seen ending at 1.0 cm above sarah. Enteric tube is seen coiled up in left upper quadrant of abdomen. 1. Unchanged moderate cardiomegaly and pulmonary venous congestion. 2. Unchanged hypoinflated lungswith Extensive alveolar infiltrates compatible with pulmonary edema due to congestive heart failureor bronchopneumonia. 3. Interval advancement of endotracheal tube close to sarah. 4. No interval change in position of coiled up enteric tube. XR Abdomen 1 view Result Date: 11/10/2024 EXAMINATION: XR ABDOMEN KUB CLINICAL INDICATION: Confirm OGT. COMPARISON: No prior plain film examination of the abdomen. Chest x-ray dated November 10, 2024. TECHNIQUE: Supine AP view of the abdomen. FINDINGS: The lower abdomen and right abdomen are cut off the image. The tip and sidehole of a presumed nasogastric tube project over the left upper quadrant, below the diaphragm. Suspect hepatosplenomegaly. No evidence of intestinal obstruction or free air. Mild degenerative changes of the spine. The patient is status post cholecystectomy. No acute finding. Echocardiogram (TTE) Comprehensive (Contrast PRN) Result Date: 11/10/2024 Left ventricular systolic function is severely decreased. The quantitative EF by 2D Zimmerman biplaneis 25%. Right ventricular systolic function is normal. Valve structure and function are normal. There is no previous study for comparison in our system. XR Chest 1 view-Portable Result Date: 11/10/2024 EXAMINATION: XR CHEST 1 VIEW-PORTABLE CLINICAL HISTORY: 54f s/p arrest; xfer [facility]; [facility]; diminished bases; eval tube placement/ptx COMPARISON: Earlier same day FINDINGS: Tip of ETT terminates over the left mainstem bronchus approximately 2.5 cm distal of the bifurcation. Recommend retraction. The NG tube is stable. Persistent and unchanged symmetric bilateral interstitial and airspaceopacities. No pneumothorax. Stable heart size and mediastinal contours. The aortic knob is poorly defined. 1. ETT placement. Recommend retraction. 2. Stable bilateral infiltrates. 3. Superior mediastinal prominence. Consider CT follow-up correlation as clinically warranted. This may reflect technique. RECOMMENDATIONS: MAN Archive for reference only CR Result Date: 11/10/2024 This order has been auto-finalized and does not contain a result. MAN Archive for reference only CR Result Date: 11/10/2024 This order has been auto-finalized and does not contain a result. Sign Neil Padilla MD 11/16/2024 12:56 PM * Nan Dietz MD - 11/16/2024 12:20 PM EDT CARDIOLOGY FELLOWS SERVICE PROGRESS NOTE Date of Consult: 11/16/2024 Patient's Primary Care Physician: No primary care provider on file. Reason for Consultation: s/p arrest ; HFrEF exacerbation Admit Date: 11/10/2024 6:20 AM Assessment & Plan 54-year-old female with a history of obesity, hypothyroidism, CKD, hypertension, hyperlipidemia, and recently diagnosed HFrEF (25%) secondary to a suspected prior PEA cardiac arrest in September 2024 who was transferred from outside hospital following an unresponsive episode, concerning for an another cardiac arrest vs respiratory arrest. Family said patient collapsed in car on arrival to ED; unclear if she had true loss of pulses and what initial rhythm was. Upon transfer to , she was deemed not a candidate for TTM; cardiology have been consulted for further recommendations 2 unresponsive episodes. Recurrent Collapse secondrary to acute pulmonary edema Acute decompensated heart failure History of recently diagnosed HFrEF (25%) Chronic Kidney Disease stage 3 Hypertension Hyperlipidemia Hypothyroidism Obesity Diabetes mellitus (A1c 6.0) Likely undiagnosed obstructive sleep apnea Acute R common femoral partial DVT TTE 11/10/2024: Normal LV size, eccentric hypertrophy, severely decreased LV function, global anginal strain is -6.3%, global hypokinesis, normal RV size and function, normal atria, no valvular disease, no pericardial effusion. LVIDD 5.6 cm WNL; LVOT VTI 16.1 cm Troponins have downtrended (79 --> 70). Creatinine better with diuresis (1.8 --> 1.5) Transferrin 189, ferritin 114, iron sat 7, iron 16, HIV negative Bilateral leg DVT studies : R partial DVT Bilateral renal artery ultrasound normal (but was done without dopplers) Although patient does not have evident pitting edema and her JVD is difficult to assess, her elevated BNP, classical history for dyspnea with pulmonary edema, and chest x-ray support acute decompensated heart failure. Especially since she was not on a diuretic at home. Family also mentioned that patient frequently snores at night and sometimes has apneic episodes briefly-she likely had undiagnosed FRANCISCO as well. Considering these factors, we suspect that her 2 sudden collapses were likely respiratory arrests from acute pulmonary edema. Plan --Plan for RHC and LHC today - Continue aspirin 81mg daily - Continue atorvastatin 40mg daily - Hold jardiance 10mg daily in prep for cath -- Continue home coreg 6.25 bid -- Continue entresto 24-26mg bid -- Cr 1.6 today (stable). Post heart cath, we can plan to start spironolactone 25mg OD -- Patient currently on heparin drip pre- cath - Patient should start iron supplementation prior to discharge - Please maintain on telemetry. Monitor BMP/mag closely; please aim for K 4< and Mg 2<. Patient seen with Dr. Giraldo. The plan is considered preliminary until co- signed by the attendingphysician. Subjective Today: Patient seated in chair. Feeling much better. Patient says she has not had a cath before, just the nuclear stress test in September. Hospital Course Summary: 54-year-old female with a history of obesity, hypothyroidism, CKD, hypertension, hyperlipidemia, and recently diagnosed HFrEF (25%) secondary to a suspected prior PEA cardiac arrest in September 2024 who was transferred from outside hospital following an unresponsive episode, concerning for an another cardiac arrest vs respiratory arrest. History obtained primarily from chart review and collateral history from patient mother and son by bedside. In September 2024, she went to an outside hospital after she was acutely short of breath and felt like she was going to . Per mother, immediately upon arrival, patient became unresponsive. Had CPR ; chart documentation details PEA arrest secondary to likely respiratory arrest. Patient was diuresed that admission; she was also found to have a new EF of 20-25%. In the chart, she is alsonoted to have had a nuclear stress test on 09/23 which showed a positive fixed area of ischemia withhypokinesia over the mid inferior, basal inferior, and apical inferior wall. She was discharged on amlodipine 5 mg daily, aspirin 81 mg daily, Lipitor 40 mg daily, Coreg 6.25 mg daily, Trulicity, andlevothyroxine 0.137 mg daily. She was not discharged with a diuretic. Patient was planned to have outpatient cardiology appointment (family stated patient had an upcoming appointment at [facility] this week close) and also being planned for future outpatient cath and a Zio patch. However, 11/09 night, patient called her mother around 10 PM saying again that she felt like she could not breathe and was going to . On arrival, mother noted that patient was wheezing significantly and very short of breath. She seemed to also be foaming at the mouth with bubbly sputum. She immediately drove the patient to the outside hospital. However, patient became unresponsive in the parking lot per documentation. Unclear if loss of pulses and what initial rhythm may have been. Seems to have likely been a respiratory arrest-patient quickly achieved ROSC after approximately 4 minutes of CPR. When she was being intubated, vomit was noted in her area intubation. Per documentation, patient was following commands and alert just before intubation. She was transferred to [facility] for CCU evaluation and further care. In our ED, patient febrile 100.6, pulse between 80-90, respiratory rate 16, blood pressure normotensive 119/58. Labs on arrival: Hb 10.5, plts 361, na 137, K 4, cl 104, co2 19, Cr 1.8, ca 8.5, ALT 54, trop 79, probnp 2385, TSH 2.76. Latest ABG pH 7.24, CO2 51, O2 65, bicarb 23. Chest x-ray shows diffuse pulmonary congestion. She was deemed not to be a TTM candidate. Review of Systems The review of systems was negative, other than that stated above. Objective Past History No past medical history on file. No past surgical history on file. No family history on file. Medications Prior to Admission Medications: Medications Prior to Admission Medication Sig Dispense Refill Last Dose glipiZIDE (GLUCOTROL) 10 MG tablet 1 tablet (10 mg total) by Mouth/Oral Cavity route every 12 hours. sodium bicarbonate 650 MG tablet 1 tablet (650 mg total) by Mouth/Oral Cavity route every 12 hours. amLODIPine (NORVASC) 10 MG tablet Take 1 tablet (10 mg total) by mouth 2 times a day. Aspirin Low Dose 81 MG EC tablet Take 1 tablet (81 mg total) by mouth daily. atorvastatin (LIPITOR) 40 MG tablet Take 1 tablet (40 mg total) by mouth nightly. carvedilol (COREG) 6.25 MG tablet Take 1 tablet (6.25 mg total) by mouth 2 times a day. famotidine (PEPCID) 20 MG tablet Take 1 tablet (20 mg total) by mouth nightly. levothyroxine (SYNTHROID, LEVOTHROID) 137 MCG tablet Take 137 mcg by mouth every morning. lisinopril (PRINIVIL,ZeSTRIL) 40 MG tablet Take 1 tablet (40 mg total) by mouth daily. metFORMIN (GLUCOPHAGE-XR) 500 MG 24 hr tablet Take 2 tablets (1,000 mg total) by mouth 2 times a day. metoPROLOL TARTRATE (LOPRESSOR) 100 MG tablet Take 1 tablet (100 mg total) by mouth 2 times a day. Trulicity 1.5 MG/0.5ML prefilled pen injection Inject 1.5 mg under the skin once a week. Current Medications / MAR: Medications Scheduled Medication Ordered Dose/Rate, Route, Frequency Last Action [Provider Held] amLODIPine (NORVASC) tablet 10 mg On hold since 11/13/2024 at 1542 until manually unheld; held by Hiram Olmedo Reason: NPO On hold since 11/13/2024 at 1542 until manually unheld (Needs Review) Hold reason: NPO 10 mg, PO, BID Ordered aspirin chewable tablet 81 mg 81 mg, PO, Daily Given, 81 mg at 11/16 0737 atorvastatin (LIPITOR) tablet 40 mg 40 mg, PO, Daily Given, 40 mg at 11/16 0738 carvedilol (COREG) tablet 6.25 mg 6.25 mg, PO, BID with meals Given, 6.25 mg at 11/16 0640 cefUROXime (CEFTIN) tablet 500 mg 500 mg, PO, Q12H MILO Given, 500 mg at 11/16 0737 chlorhexidine gluconate 2 % wipes - central line CHG application No Dose/Rate, TOP, Daily Given, 1 each at 11/11 1252 [Provider Held] empagliflozin (JARDIANCE) tablet 10 mg On hold since yesterday at 1500 until manually unheld; held by Andrea Cain Reason: Pre-procedure On hold since yesterday at 1500 until manually unheld (Needs Review) Hold reason: Pre-procedure 10 mg, PO, Daily Given, 10 mg at 11/15 0911 famotidine (PEPCID) tablet 20 mg 20 mg, PO, Daily Given, 20 mg at 11/16 0739 [Provider Held] furosemide (LASIX) injection 40 mg On hold since today at 0703 until manually unheld; held by Clemente Young Reason: Pre-procedure On hold since today at 0703 until manually unheld Hold reason: Pre-procedure 40 mg, IV, Daily Ordered insulin lispro (HumaLOG/ADMELOG) 100 units/mL injection 1-6 Units 1-6 Units, SC, TID with meals Given, 1 Units at 11/15 1233 levothyroxine (SYNTHROID, LEVOTHROID) tablet 137 mcg 137 mcg, PO, Daily 6AM Given, 137 mcg at 11/16 0527 multivitamin tablet 1 tablet 1 tablet, PO, Daily Given, 1 tablet at 11/16 0739 senna-docusate (SENNA-S) 8.6-50 MG tablet 2 tablet 2 tablet, PO, Nightly Given, 2 tablet at 11/13 2139 thiamine mononitrate (VITAMIN B-1) tablet 200 mg 200 mg, PO, Daily Given, 200 mg at 11/16 0740 Continuous Medication Ordered Dose/Rate, Route, Frequency Last Action sodium chloride 0.9% (NS) infusion 100 mL/hr, IV, Continuous New Bag, 100 mL/hr at 11/16 0832 heparin (porcine) IV infusion 25,000 units in 500 mL 0.45% NaCl (premix) 15 Units/kg/hr, IV, Continuous Rate Change - High Risk Medication, 12 Units/kg/hr at 11/16 0454 PRN Medication Ordered Dose/Rate, Route, Frequency Last Action acetaminophen (TYLENOL) tablet 650 mg 650 mg, PO, Q6H PRN Given, 650 mg at 11/14 0943 bisacodyl (DULCOLAX) suppository 10 mg 10 mg, RE, Daily PRN Ordered dextrose 50 % solution 12.5 g (Or Linked Group #1) 12.5 g, IV, Q15 Min PRN Ordered dextrose 50 % solution 25 g (Or Linked Group #1) 25 g, IV, Q15 Min PRN Ordered glucagon (GLUCAGEN) injection 1 mg (Or Linked Group #1) 1 mg, IM, Daily PRN Ordered glucose (GLUTOSE 15) 40 % oral gel 37.5 g (Or Linked Group #1) 1 Tube, PO, Q15 Min PRN Ordered glucose (GLUTOSE 15) 40 % oral gel 75 g (Or Linked Group #1) 2 Tube, PO, Q15 Min PRN Ordered heparin (porcine) 1000 unit/mL injection 1,700 Units 20 Units/kg, IV, Q6H PRN Ordered heparin (porcine) 1000 unit/mL injection 2,600 Units 30 Units/kg, IV, Q6H PRN Ordered lactulose (ENULOSE) 10 gm/15 mL solution 20 g 30 mL, PO, Q4H PRN Ordered naloxone (NARCAN) 0.4 mg/mL injection 0.4 mg 0.4 mg, IV, Q5 Min PRN Ordered perflutren lipid microsphere (DEFINITY) 1.3 mL in sodium chloride (NS) 0.9 % 10 mL 0.5-8 mL, IV, Once in imaging Ordered Allergies No Known Allergies Vital Signs Pulse:82,Resp:18,BP:119/68,SpO2:98 %,Weight:85.3 kg (188 lb 0.8 oz) Temp Last 24 hrs: Temp Min: 96.5 ??F (35.8 ??C) Max: 97.1 ??F (36.2 ??C) Intake/Output Summary (Last 24 hours) at 11/16/2024 1220 Last data filed at 11/16/2024 0832 Gross per 24 hour Intake 1906.24 ml Output 700 ml Net 1206.24 ml Physical Examination General: Well-developed. Well-nourished. Resting comfortably. Obese. HEENT: Normocephalic, atraumatic. PERRLA. EOMI. Mucous membranes moist. Neck: Difficult to assess JVP Cardiovascular: Regular rate. Regular rhythm. No murmrs, gallops, or rubs. Respiratory: Adequate respiratory effort. Wheezing Abdomen: Soft. Nondistended. Nontender. No rigidity or guarding. Normoactive bowel sounds. Extremities: no sacral or bilateral lower extremity edema. Skin: Warm, dry. Neurologic: Awake. Alert. No gross focal deficits. Moves all four extremities spontaneously. Relevant Data Reviewed: Results from last 7 days Lab Units 11/16/24 0750 11/16/24 0739 11/15/24 2049 11/15/24 1204 11/15/24 0840 11/14/24 0820 11/14/24 0650 11/11/24 0336 11/11/24 0001 11/10/24 0750 11/10/24 0642 SODIUM mmol/L 134* -- -- -- 134* -- 136 < > 139 < > 137 POTASSIUM mmol/L 3.7 -- -- -- 3.8 -- 3.6 < > 3.8 < > 4.0 CHLORIDE mmol/L 99 -- -- -- 96* -- 98 < > 107 < > 104 CO2 mmol/L 23 -- -- -- 26 -- 24 < > 22 < > 19* CO2, TOTAL -- -- -- -- -- -- -- < > -- < > -- BUN mg/dL 43* -- -- -- 45* -- 46* < > 33* < > 31* CREATININE mg/dL 1.4* -- -- -- 1.6* -- 1.6* < > 1.7* < > 1.8* CALCIUM mg/dL 9.7 -- -- -- 9.9 -- 9.4 < > 8.8 < > 8.5* GLUCOSE mg/dL 115* -- -- -- 117* -- 112* < > 139* < > 217* GLUCOSE, POC mg/dL -- 119* 187* < > -- < > -- < > -- < > -- EGFR 45* -- -- -- 38* -- 38* < > 36* < > 33* ALBUMIN g/dL -- -- -- -- -- -- -- -- 3.5 -- 3.4* PROTEIN, TOTAL g/dL -- -- -- -- -- -- -- -- 7.4 -- 7.1 BILIRUBIN TOTAL mg/dL -- -- -- -- -- -- -- -- 0.8 -- 0.6 ALK PHOS U/L -- -- -- -- -- -- -- -- 96 -- 109 ALT U/L -- -- -- -- -- -- -- -- 49 -- 54* AST U/L -- -- -- -- -- -- -- -- 36 -- 46 < > = values in this interval not displayed. Lab Results Component Value Date MG 2.1 11/16/2024 Results from last 7 days Lab Units 11/16/24 0750 11/15/24 1928 11/15/24 0840 11/11/24 2343 11/11/24 1243 11/11/24 0001 11/10/24 0642 WHITE BLOOD CELL COUNT Thou/uL 7.7 7.4 7.1 < > 6.3 < > 13.2* HEMOGLOBIN g/dL 9.4* 9.4* 9.9* < > 8.5* < > 10.5* HEMATOCRIT % 30.1* 29.8* 30.9* < > 28.1* < > 33.7* PLATELET COUNT Thou/uL 300 304 306 < > 202 < > 361 NEUTROS PCT % -- 58.6 -- -- 69.4 -- 71.7 LYMPHS PCT % -- 25.3 -- -- 17.9 -- 17.6 MONOS PCT % -- 10.9 -- -- 11.7 -- 9.5 EOS PCT % -- 0.3 -- -- 0.3 -- 0.1 BASOS PCT % -- 0.3 -- -- 0.2 -- 0.3 < > = values in this interval not displayed. Lab Results Component Value Date HSTNT 70 (HH) 11/10/2024 HSTNT 79 (HH) 11/10/2024 Lab Results Component Value Date PROBNP 2,385 (H) 11/10/2024 Lab Results Component Value Date HGBA1C 6.0 (H) 11/12/2024 No results found for: CHOL No results found for: HDL No results found for: LDLCALC Lab Results Component Value Date TRIG 210 (H) 11/10/2024 No results found for: CHOLHDL ECG: TELE: Imaging Studies: Echocardiogram (TTE) Comprehensive (Contrast PRN) Result Date: 11/10/2024 Left ventricular systolic function is severely decreased. The quantitative EF by 2D Zimmerman biplane is 25%. Right ventricular systolic function is normal. Valve structure and function are normal. There is no previous study for comparison in our system. Sign: Nan Dietz MD Internal Medicine PGY-2 [facility] 11/16/2024 12:20 PM Available via [employer] Text 24/03 at [facility] Consult Service * Isi Valladares RN - 11/16/2024 9:29 AM EDT 11/16/24 0900 Discharge Needs Assessment Offered/Gave Vendor List yes Discharge Coordination/Tasks Status Patient/Patient Waist Cutter Provided With Choices Of Homecare Company Preferences(s) Homecare Company Preference(s) Karrie Miranda Plan Plan Home Care Patient/Family in Agreement with Plan yes Case Management Care Plan Note Summary: Per clinical progression rounds with the bedside RN and provider, and ongoing continuing care assessment, patient is not yet clinically stable for transition. Plan is for L/RHC today. CM spoke with Pt about discharge planning. Pt would like to return home w/ services. She reports she has georges ambulating to the bathroom and feels strong enough to return home. At this time transition plan remains for patient to be discharged when medically stable. CC will continue to follow for readiness to transition. Recommendation: Anticipate transition home w/ services when medically stable. * Isi Valladares RN - 11/16/2024 9:27 AM EDT Error * Nan Dietz MD - 11/15/2024 12:06 PM EDT CARDIOLOGY FELLOWS SERVICE PROGRESS NOTE Date of Consult: 11/15/2024 Patient's Primary Care Physician: No primary care provider on file. Reason for Consultation: s/p arrest ; HFrEF exacerbation Admit Date: 11/10/2024 6:20 AM Assessment & Plan 54-year-old female with a history of obesity, hypothyroidism, CKD, hypertension, hyperlipidemia, and recently diagnosed HFrEF (25%) secondary to a suspected prior PEA cardiac arrest in September 2024 who was transferred from outside hospital following an unresponsive episode, concerning for an another cardiac arrest vs respiratory arrest. Family said patient collapsed in car on arrival to ED; unclear if she had true loss of pulses and what initial rhythm was. Upon transfer to , she was deemed not a candidate for TTM; cardiology have been consulted for further recommendations 2 unresponsive episodes. Recurrent Collapse secondrary to acute pulmonary edema Acute decompensated heart failure History of recently diagnosed HFrEF (25%) Chronic Kidney Disease stage 3 Hypertension Hyperlipidemia Hypothyroidism Obesity Diabetes mellitus (A1c 6.0) Likely undiagnosed obstructive sleep apnea Acute R common femoral partial DVT TTE 11/10/2024: Normal LV size, eccentric hypertrophy, severely decreased LV function, global anginal strain is -6.3%, global hypokinesis, normal RV size and function, normal atria, no valvular disease, no pericardial effusion. LVIDD 5.6 cm WNL; LVOT VTI 16.1 cm Troponins have downtrended (79 --> 70). Creatinine better with diuresis (1.8 --> 1.5) Transferrin 189, ferritin 114, iron sat 7, iron 16, HIV negative Bilateral leg DVT studies : R partial DVT Although patient does not have evident pitting edema and her JVD is difficult to assess, her elevated BNP, classical history for dyspnea with pulmonary edema, and chest x-ray support acute decompensated heart failure. Especially since she was not on a diuretic at home. Family also mentioned that patient frequently snores at night and sometimes has apneic episodes briefly-she likely had undiagnosed FRANCISCO as well. Considering these factors, we suspect that her 2 sudden collapses were likely respiratory arrests from acute pulmonary edema. Plan -- We have consulted interventional cardiology to see if patient can get RHC and LHC tomorrow. Patient to be NPO from midnight onwards. -- Please reduce to IV lasix 40mg OD. - Continue jardiance 10mg daily -- Continue home coreg 6.25 bid -- Continue entresto 24-26mg bid -- Cr 1.6 today (stable). Post heart cath, we can plan to start spironolactone 25mg OD -- Follow-up bilateral renal artery ultrasound -- Patient currently on lovenox injections for DVT treatment. Would continue for now. Once patient post-cath, can then transition to PO anticoagulation. - Patient should start iron supplementation prior to discharge - Please maintain on telemetry. Monitor BMP/mag closely; please aim for K 4< and Mg 2<. Patient seen with Dr. Giraldo. The plan is considered preliminary until co- signed by the attendingphysician. Subjective Today: Patient seated in chair. Feeling much better. Patient says she has not had a cath before, just the nuclear stress test in September. Hospital Course Summary: 54-year-old female with a history of obesity, hypothyroidism, CKD, hypertension, hyperlipidemia, and recently diagnosed HFrEF (25%) secondary to a suspected prior PEA cardiac arrest in September 2024 who was transferred from outside hospital following an unresponsive episode, concerning for an another cardiac arrest vs respiratory arrest. History obtained primarily from chart review and collateral history from patient mother and son by bedside. In September 2024, she went to an outside hospital after she was acutely short of breath and felt like she was going to . Per mother, immediately upon arrival, patient became unresponsive.Had CPR ; chart documentation details PEA arrest secondary to likely respiratory arrest. Patient was diuresed that admission; she was also found to have a new EF of 20-25%. In the chart, she is also noted to have had a nuclear stress test on 09/23 which showed a positive fixed area of ischemia with hypokinesia over the mid inferior, basal inferior, and apical inferior wall. She was discharged on amlodipine 5 mg daily, aspirin 81 mg daily, Lipitor 40 mg daily, Coreg 6.25 mg daily, Trulicity, and levothyroxine 0.137 mg daily. She was not discharged with a diuretic. Patient was planned to have outpatient cardiology appointment (family stated patient had an upcoming appointment at [facility] this week close) and also being planned for future outpatient cath and a Zio patch. However, 3/11 night, patient called her mother around 10 PM saying again that she felt like she could not breathe and was going to . On arrival, mother noted that patient was wheezing significantly and very short of breath. She seemed to also be foaming at the mouth with bubbly sputum. She immediately drove the patient to the outside hospital. However, patient became unresponsive in the parking lot per documentation. Unclear if loss of pulses and what initial rhythm may have been. Seems to have likely been a respiratory arrest-patient quickly achieved ROSC after approximately 4 minutes of CPR. When she was being intubated, vomit was noted in her area intubation. Per documentation, patient was following commands and alert just before intubation. She was transferred to [facility] for CCU evaluation and further care. In our ED, patient febrile 100.6, pulse between 80-90, respiratory rate 16, blood pressure normotensive 119/58. Labs on arrival: Hb 10.5, plts 361, na 137, K 4, cl 104, co2 19, Cr 1.8, ca 8.5, ALT 54, trop 79, probnp 2385, TSH 2.76. Latest ABG pH 7.24, CO2 51, O2 65, bicarb 23. Chest x-ray shows diffuse pulmonary congestion. She was deemed not to be a TTM candidate. Review of Systems The review of systems was negative, other than that stated above. Objective Past History No past medical history on file. No past surgical history on file. No family history on file. Medications Prior to Admission Medications: Medications Prior to Admission Medication Sig Dispense Refill Last Dose glipiZIDE (GLUCOTROL) 10 MG tablet 1 tablet (10 mg total) by Mouth/Oral Cavity route every 12 hours. sodium bicarbonate 650 MG tablet 1 tablet (650 mg total) by Mouth/Oral Cavity route every 12 hours. amLODIPine (NORVASC) 10 MG tablet Take 1 tablet (10 mg total) by mouth 2 times a day. Aspirin Low Dose 81 MG EC tablet Take 1 tablet (81 mg total) by mouth daily. atorvastatin (LIPITOR) 40 MG tablet Take 1 tablet (40 mg total) by mouth nightly. carvedilol (COREG) 6.25 MG tablet Take 1 tablet (6.25 mg total) by mouth 2 times a day. famotidine (PEPCID) 20 MG tablet Take 1 tablet (20 mg total) by mouth nightly. levothyroxine (SYNTHROID, LEVOTHROID) 137 MCG tablet Take 137 mcg by mouth every morning. lisinopril (PRINIVIL,ZeSTRIL) 40 MG tablet Take 1 tablet (40 mg total) by mouth daily. metFORMIN (GLUCOPHAGE-XR) 500 MG 24 hr tablet Take 2 tablets (1,000 mg total) by mouth 2 times a day. metoPROLOL TARTRATE (LOPRESSOR) 100 MG tablet Take 1 tablet (100 mg total) by mouth 2 times a day. Trulicity 1.5 MG/0.5ML prefilled pen injection Inject 1.5 mg under the skin once a week. Current Medications / MAR: Medications Scheduled Medication Ordered Dose/Rate, Route, Frequency Last Action [Provider Held] amLODIPine (NORVASC) tablet 10 mg On hold since 11/13/2024 at 1542 until manually unheld; held by Hiram Olmedo Reason: NPO On hold since 11/13/2024 at 1542 until manually unheld (Needs Review) Hold reason: NPO 10 mg, PO, BID Ordered aspirin chewable tablet 81 mg 81 mg, PO, Daily Given, 81 mg at 11/15 910 atorvastatin (LIPITOR) tablet 40 mg 40 mg, PO, Daily Given, 40 mg at 11/15 910 carvedilol (COREG) tablet 6.25 mg 6.25 mg, PO, BID with meals Given, 6.25 mg at 11/15 910 cefUROXime (CEFTIN) tablet 500 mg 500 mg, PO, Q12H MILO Given, 500 mg at 11/15 909 chlorhexidine gluconate 2 % wipes - central line CHG application No Dose/Rate, TOP, Daily Given, 1 each at 11/11 1252 empagliflozin (JARDIANCE) tablet 10 mg 10 mg, PO, Daily Given, 10 mg at 11/15 910 enoxaparin (LOVENOX) syringe 90 mg 1 mg/kg, SC, Q12H Given, 90 mg at 11/15 0056 famotidine (PEPCID) tablet 20 mg 20 mg, PO, Daily Given, 20 mg at 11/15 910 furosemide (LASIX) injection 40 mg 40 mg, IV, BID Given, 40 mg at 11/15 909 insulin lispro (HumaLOG/ADMELOG) 100 units/mL injection 1-6 Units 1-6 Units, SC, TID with meals Ordered levothyroxine (SYNTHROID, LEVOTHROID) tablet 137 mcg 137 mcg, PO, Daily 6AM Given, 137 mcg at 11/15 0439 multivitamin tablet 1 tablet 1 tablet, PO, Daily Given, 1 tablet at 11/15 0911 potassium chloride (KLOR-CON M20) CR tablet 40 mEq 40 mEq, PO, Once Ordered senna-docusate (SENNA-S) 8.6-50 MG tablet 2 tablet 2 tablet, PO, Nightly Given, 2 tablet at 11/13 213 thiamine mononitrate (VITAMIN B-1) tablet 200 mg 200 mg, PO, Daily Given, 200 mg at 11/15 0911 PRN Medication Ordered Dose/Rate, Route, Frequency Last Action acetaminophen (TYLENOL) tablet 650 mg 650 mg, PO, Q6H PRN Given, 650 mg at 11/14 0943 bisacodyl (DULCOLAX) suppository 10 mg 10 mg, RE, Daily PRN Ordered dextrose 50 % solution 12.5 g (Or Linked Group #1) 12.5 g, IV, Q15 Min PRN Ordered dextrose 50 % solution 25 g (Or Linked Group #1) 25 g, IV, Q15 Min PRN Ordered glucagon (GLUCAGEN) injection 1 mg (Or Linked Group #1) 1 mg, IM, Daily PRN Ordered glucose (GLUTOSE 15) 40 % oral gel 37.5 g (Or Linked Group #1) 1 Tube, PO, Q15 Min PRN Ordered glucose (GLUTOSE 15) 40 % oral gel 75 g (Or Linked Group #1) 2 Tube, PO, Q15 Min PRN Ordered lactulose (ENULOSE) 10 gm/15 mL solution 20 g 30 mL, PO, Q4H PRN Ordered naloxone (NARCAN) 0.4 mg/mL injection 0.4 mg 0.4 mg, IV, Q5 Min PRN Ordered perflutren lipid microsphere (DEFINITY) 1.3 mL in sodium chloride (NS) 0.9 % 10 mL 0.5-8 mL, IV, Once in imaging Ordered Allergies No Known Allergies Vital Signs Pulse:86,Resp:20,BP:(!) 126/58,SpO2:95 %,Weight:85.2 kg (187 lb 13.3 oz) Temp Last 24 hrs: Temp Min: 96.3 ??F (35.7 ??C) Max: 97.1 ??F (36.2 ??C) Intake/Output Summary (Last 24 hours) at 11/15/2024 1207 Last data filed at 11/15/2024 1024 Gross per 24 hour Intake 240 ml Output 1050 ml Net -810 ml Physical Examination General: Well-developed. Well-nourished. Resting comfortably. Obese. HEENT: Normocephalic, atraumatic. PERRLA. EOMI. Mucous membranes moist. Neck: Difficult to assess JVP Cardiovascular: Regular rate. Regular rhythm. No murmrs, gallops, or rubs. Respiratory: Adequate respiratory effort. Wheezing Abdomen: Soft. Nondistended. Nontender. No rigidity or guarding. Normoactive bowel sounds. Extremities: no sacral or bilateral lower extremity edema. Skin: Warm, dry. Neurologic: Awake. Alert. No gross focal deficits. Moves all four extremities spontaneously. Relevant Data Reviewed: Results from last 7 days Lab Units 11/15/24 0840 11/15/24 0829 11/14/24 2114 11/14/24 0820 11/14/24 0650 11/13/24 1614 11/13/24 1205 11/11/24 0336 11/11/24 0001 11/10/24 0750 11/10/24 0642 SODIUM mmol/L 134* -- -- -- 136 -- 137 < > 139 < > 137 POTASSIUM mmol/L 3.8 -- -- -- 3.6 -- 4.0 < > 3.8 < > 4.0 CHLORIDE mmol/L 96* -- -- -- 98 -- 102 < > 107 < > 104 CO2 mmol/L 26 -- -- -- 24 -- 22 < > 22 < > 19* CO2, TOTAL -- -- -- -- -- -- -- < > -- < > -- BUN mg/dL 45* -- -- -- 46* -- 41* < > 33* < > 31* CREATININE mg/dL 1.6* -- -- -- 1.6* -- 1.5* < > 1.7* < > 1.8* CALCIUM mg/dL 9.9 -- -- -- 9.4 -- 9.5 < > 8.8 < > 8.5* GLUCOSE mg/dL 117* -- -- -- 112* -- 136* < > 139* < > 217* GLUCOSE, POC mg/dL -- 127* 177* < > -- < > -- < > -- < > -- EGFR 38* -- -- -- 38* -- 41* < > 36* < > 33* ALBUMIN g/dL -- -- -- -- -- -- -- -- 3.5 -- 3.4* PROTEIN, TOTAL g/dL -- -- -- -- -- -- -- -- 7.4 -- 7.1 BILIRUBIN TOTAL mg/dL -- -- -- -- -- -- -- -- 0.8 -- 0.6 ALK PHOS U/L -- -- -- -- -- -- -- -- 96 -- 109 ALT U/L -- -- -- -- -- -- -- -- 49 -- 54* AST U/L -- -- -- -- -- -- -- -- 36 -- 46 < > = values in this interval not displayed. Lab Results Component Value Date MG 2.2 11/15/2024 Results from last 7 days Lab Units 11/15/24 0840 11/14/24 0650 11/12/24 2350 11/11/24 2343 11/11/24 1243 11/11/24 0001 11/10/24 0642 WHITE BLOOD CELL COUNT Thou/uL 7.1 6.2 8.0 < > 6.3 < > 13.2* HEMOGLOBIN g/dL 9.9* 9.3* 9.3* < > 8.5* < > 10.5* HEMATOCRIT % 30.9* 29.2* 29.4* < > 28.1* < > 33.7* PLATELET COUNT Thou/uL 306 264 233 < > 202 < > 361 NEUTROS PCT % -- -- -- -- 69.4 -- 71.7 LYMPHS PCT % -- -- -- -- 17.9 -- 17.6 MONOS PCT % -- -- -- -- 11.7 -- 9.5 EOS PCT % -- -- -- -- 0.3 -- 0.1 BASOS PCT % -- -- -- -- 0.2 -- 0.3 < > = values in this interval not displayed. Lab Results Component Value Date HSTNT 70 () 11/10/2024 HSTNT 79 () 11/10/2024 Lab Results Component Value Date PROBNP 2,385 (H) 11/10/2024 Lab Results Component Value Date HGBA1C 6.0 (H) 11/12/2024 No results found for: CHOL No results found for: HDL No results found for: LDLCALC Lab Results Component Value Date TRIG 210 (H) 11/10/2024 No results found for: CHOLHDL ECG: TELE: Imaging Studies: Echocardiogram (TTE) Comprehensive (Contrast PRN) Result Date: 11/10/2024 Left ventricular systolic function is severely decreased. The quantitative EF by 2D Zimmerman biplane is 25%. Right ventricular systolic function is normal. Valve structure and function are normal. There is no previous study for comparison in our system. Sign: Nan Dietz MD Internal Medicine PGY-2 [facility] 11/15/2024 12:07 PM Available via [employer] Text 24/03 at Crnp Consult Service Associated attestation - Yung Giraldo MD - 11/16/2024 6:34 PM EDT Ms. Hanna was seen and examined with Dr. Almanza and I agree with Dr. Almanza's assessment and plan. The patient has a reduced ejection fraction and I do not believe that she has had 2 episodes of pulseless arrest but do believe she has had 2 episodes of acute pulmonary edema. She is scheduled to have coronary angiography to exclude the possibility that she has severe coronary disease causing her episodes of what sound to be acute pulmonary edema. * Neil Padilla MD - 11/15/2024 11:10 AM EDT Cardiology Hospitalist Progress Note Principal Problem: Cardiac arrest (HCC) (POA: Yes) Resolved Problems: Assessment & Plan 54-year-old female with recently diagnosed NICM EF 25%, hypertension, hyperlipidemia, CKD, hypothyroidism, PEA cardiac arrest September 2024 transferred from [place] following an episode of unresponsiveness. Found to have acute pulmonary edema and acute respiratory failure. TTE demonstrates severely d iminished LV function, normal RV size and function, LVIDD 5.6cm, high- sensitivity troponin is mildly elevated. Diagnosed with acute R CFV DVT and started on anticoagulation. Assessment Acute medical issues: Acute respiratory failure with hypoxemia, resolved Cardiac arrest not TTM candidate Acute on chronic decompensated HFrEF, stage C AHA Pulmonary edema IVCD GILBERTO on CKD stage III Streptococcal pneumonia Acute metabolic encephalopathy Acute right CFV DVT Chronic conditions: Type 2 diabetes, A1c 6.0 Hypertension Hyperlipidemia CKD Hypothyroidism Anemia, normocytic and normochromic, Obesity BMI 36 Plan -Continue monitoring cardiac telemetry -2 g sodium diet - Continue diuretic therapy with furosemide 40 mg twice daily, closely monitor fluid balance, electrolyte status and renal function. Consider transition to oral diuretic - IV chlorothiazide was discontinued - GDMT with Entresto 24-26 mg twice daily, Coreg 6.25 mg twice daily, Jardiance 10 mg daily - Workup for renal artery stenosis with arterial Doppler ongoing, would be favoring severe LV dysfunction as is the reason for cardiopulmonary decompensation - Continue anticoagulation with subcutaneous Lovenox and therapeutic doses - Recurrent admissions with flash pulmonary edema and decompensated heart failure with who were notinvestigation regarding left main disease. Will discuss with general cardiology. Would recommend [facility] -nuclear stress test on 09/23 demonstrates a positive fixed area of ischemia with hypokinesia over the mid inferior, basal inferior, and apical inferior wall - Remains in the hospital today with ongoing diuresis and optimization of medical management and GDMT DVT PROPHYLAXIS Risk Assessment Scores and Dates: VTE Time Out IMPROVE SCORE: 2 (11/10/2024 9:01 AM) Interpretation - High Risk Chemical Prophylaxis enoxaparin (LOVENOX) syringe 90 mg Subcutaneous Every 12 hours Heparin Sodium (Porcine), Heparin (Porcine) in NaCl, Enoxaparin Sodium 90 mg Last dose 11/15/2024 12:56 AM Mechanical Prophylaxis Mechanical VTE prophylaxis NOT ordered. Click here to order if appropriate Subjective LOS: Day 5 Patient seen at the bedside in rounds this morning, denies chest pressure and denies lightheadedness or dizziness, no orthopnea or paroxysmal tunnel dyspnea Fluid balance negative -6.0 L from admission Telemetry:-NSR Objective Last Vitals Pulse:86,Resp:20,BP:(!) 126/58,SpO2:95 %,Weight:85.2 kg (187 lb 13.3 oz) Temp Last 24 hrs: Temp Min: 96.3 ??F (35.7 ??C) Max: 97.1 ??F (36.2 ??C) Intake/Output Summary (Last 24 hours) at 11/15/2024 1111 Last data filed at 11/15/2024 1024 Gross per 24 hour Intake 240 ml Output 1050 ml Net -810 ml Physical Exam Constitutional:-awake, alert, oriented in no distress SKIN: Inspection of the skin reveals no rashes, ulcerations or petechiae. HEENT:-Normocephalic, Atraumatic,PEERLA, EOMI, no conjuctival jaundice or erythema noted,Mucous membranes moist, External ears w/o mass. External Ears w/o lesion, Nose w/o mass or lesion, Oropharynx w/o erythema, Oropharynx w/o edema. Neck:-Supple, no JVD, no carotid bruits, no thyroid masses or lymphadenopathy, trachea in the middle. Chest:-CTA, no wheezes, no rales, no rhonchi, equal breath sounds. CVS:-RRR, normal S1, normal S2, no S3, no S$, no click, gallops or murmurs, carotid upstroke is 2+ bilaterally with no bruit Abd:-soft, NT, BS active, no rebound, rigidity or guarding, no hernias, no venous distension, no bruits audible Extr:-well perfused, no edema, no cyanosis, no calf tenderness. Neurological Normal gait, No focal deficit, Normal speech, Normal tone, Strength equal bilateral, Reflexes equal bilateral, Sensation intact, Cranial nerves intact. Musculoskeletal:-No deformities. Skin:-No bruises, no echymosis, no petechias. Relevant data reviewed Labs and Radiology Notable labs are: No results found for: CK , HEATHER , TNI , BNP Lab Results Component Value Date PROBNP 2,385 (H) 11/10/2024 No results found for: HEATHER , TNI Lab Results Component Value Date WBC 7.1 11/15/2024 HGB 9.9 (L) 11/15/2024 HCT 30.9 (L) 11/15/2024 PLT 306 11/15/2024 Lab Results Component Value Date NA 134 (L) 11/15/2024 K 3.8 11/15/2024 CL 96 (L) 11/15/2024 CO2 26 11/15/2024 CO2 24 11/12/2024 BUN 45 (H) 11/15/2024 CREAT 1.6 (H) 11/15/2024 GLUC 117 (H) 11/15/2024 GLUC 127 (H) 11/15/2024 Lab Results Component Value Date TSH 2.76 11/10/2024 Imaging Studies Vas Venous Duplex - Leg Result Date: 11/11/2024 Table formatting from the original result was not included. Department: [facility] Patient: [id number] (MARLI HANNA) Patient Location: ..[address] CPT Code: 38810 ICD-9: Referring Physician: EDEL Erazo Critical Findings: [place] was given to ADDI Flores by Tegan El RVT at 11:41 am on 11/11/2024. Result: partial acute thrombus of right CFV Read Back Performed: Yes Right lower extremity venous duplex ultrasound exam demonstrates acute thrombus involving the common femoral vein. Diagnosis of acute thrombosis is supported by a low level of echogenicity of the thrombus in the distended vein. The remainder of the deep system is patent. Left lower extremity venous duplex ultrasound exam demonstrates normalDoppler flow with no thrombus seen in dan scale. Findings are not consistent with the presence of deep vein thrombosis. Indications Bilateral Swelling of Limb [M79.89]. 54 year old female presents with bilateral leg swelling. Findings: Right Impression Phasic Compressible Common Femoral Vein AcutePartial Thrombus Yes Partial Proximal femoral vein Normal Complete Mid femoral vein Normal CompleteDistal femoral vein Normal Complete Popliteal Normal Complete Posterior Tibial Vein Normal CompletePeroneal Normal Complete GSV Saphenofemoral junction Normal Complete Left Impression Phasic Compressible Common Femoral Vein Normal Yes Complete Proximal femoral vein Normal Complete Mid femoral veinNormal Complete Distal femoral vein Normal Complete Popliteal Normal Complete Posterior Tibial VeinNormal Complete Peroneal Normal Complete GSV Saphenofemoral junction Normal Complete ElectronicallySigned by: Mihai Vicente MD, MPH, RPVI on 2024-11-11 12:51:41 PM End of Report XR Chest 1 view-Portable Result Date: 11/11/2024 EXAMINATION: XR CHEST CLINICAL INFORMATION: Confirm ETT, s/p retraction. COMPARISON: XR Chest 11/10/2024 at 0645 hours TECHNIQUE: Frontal view of the chest was obtained on 11/10/2024 at 1501 hours. HEART & VASCULARITY: There are moderate cardiomegaly and increased pulmonary vascularity. LUNGS: Lungs are hypoinflated. Extensive alveolar infiltrates are seen in bilateral lungs. No pneumothorax is seen. LINES & SUPPORTING TUBES: Endotracheal tube is seen ending at 5.5 cm above sarah. Enteric tube is seen coiled up in left upper quadrant of abdomen. 1. Unchanged moderate cardiomegaly and pulmonary venous congestion. 2. Persistent hypoinflated lungs with Extensive alveolar infiltrates compatible with pulmonary edema due to congestive heart failure or bronchopneumonia. 3. Interval retraction of endotracheal tube away from sarah. 4. No interval change in position of coiled up enteric tube. XR Chest 1 view-Portable (STAT) Result Date: 11/11/2024 EXAMINATION: XR CHEST CLINICAL INFORMATION: Readjusted ET tube COMPARISON: Chest x-ray on 11/10/2024t 1501 hours TECHNIQUE: Frontal view of the chest was obtained on 11/11/2024 at 0527 hours. FINDINGS: HEART & VASCULARITY: There are moderate cardiomegaly and increased pulmonary vascularity. LUNGS: Lungs are hypoinflated. Extensive alveolar infiltrates are seen in bilateral lungs. No pneumothorax is seen. LINES & SUPPORTING TUBES: Endotracheal tube is seen ending at 1.0 cm above sarah. Enteric tube is seen coiled up in left upper quadrant of abdomen. 1. Unchanged moderate cardiomegaly and pulmonary venous congestion. 2. Unchanged hypoinflated lungswith Extensive alveolar infiltrates compatible with pulmonary edema due to congestive heart failureor bronchopneumonia. 3. Interval advancement of endotracheal tube close to sarah. 4. No interval change in position of coiled up enteric tube. XR Abdomen 1 view Result Date: 11/10/2024 EXAMINATION: XR ABDOMEN KUB CLINICAL INDICATION: Confirm OGT. COMPARISON: No prior plain film examination of the abdomen. Chest x-ray dated November 10, 2024. TECHNIQUE: Supine AP view of the abdomen. FINDINGS: The lower abdomen and right abdomen are cut off the image. The tip and sidehole of a presumed nasogastric tube project over the left upper quadrant, below the diaphragm. Suspect hepatosplenomegaly. No evidence of intestinal obstruction or free air. Mild degenerative changes of the spine. The patient is status post cholecystectomy. No acute finding. Echocardiogram (TTE) Comprehensive (Contrast PRN) Result Date: 11/10/2024 Left ventricular systolic function is severely decreased. The quantitative EF by 2D Zimmerman biplaneis 25%. Right ventricular systolic function is normal. Valve structure and function are normal. There is no previous study for comparison in our system. XR Chest 1 view-Portable Result Date: 11/10/2024 EXAMINATION: XR CHEST 1 VIEW-PORTABLE CLINICAL HISTORY: 54f s/p arrest; xfer [facility]; HARPREET;diminished bases; eval tube placement/ptx COMPARISON: Earlier same day FINDINGS: Tip of ETT terminates over the left mainstem bronchus approximately 2.5 cm distal of the bifurcation. Recommend retraction. The NG tube is stable. Persistent and unchanged symmetric bilateral interstitial and airspace opacities. No pneumothorax. Stable heart size and mediastinal contours. The aortic knob is poorly defined. 1. ETT placement. Recommend retraction. 2. Stable bilateral infiltrates. 3. Superior mediastinal prominence. Consider CT follow-up correlation as clinically warranted. This may reflect technique. RECOMMENDATIONS: MAN Archive for reference only CR Result Date: 11/10/2024 This order has been auto-finalized and does not contain a result. MAN Archive for reference only CR Result Date: 11/10/2024 This order has been auto-finalized and does not contain a result. Sign Neil Padilla MD 11/15/2024 11:11 AM * Hannah Vaughn, OT - 11/15/2024 10:27 AM EDT Occupational Therapy Progress Note Assessment & Progress Summary: Marli was seen for OT follow up session today and was pleasant, cooperative and highly appreciative of session. She was able to perform all mobility, grooming/bathing standing at the sink and dressing activities without need for physical assist. Pt walked to and from the bathroom without device or assistance with no LOB or unsteadiness noted. She was noted with some redness and chaffing under breasts and in groin area with pt requesting powder that she has been prescribed in the past -nurse made aware and reported he will follow up with MD. Pt requesting to sit EOB (where she was initially found) with nurse aware. Marli is currently at or near baseline functional level and doesn't require further skilled OT services in house, with orders completed after session today. She is expected to be able to transition home, when medically cleared, with family assist prn. Progress Towards Goals: progress toward functional goals is good Outcome Measures: The Activity Measure for Post-Acute Care (AM-PAC) Daily Activity Inpatient Short Form (6-clicks) royce standardized measure used to quantify deficits in self- care. The total score of the measure ranges from 6-24. A higher score indicates a higher level of independence with self-care tasks. Current [facility] Daily Activity Score: 24 Precautions/Restrictions: fall, other (see comments) (skin) Rehab Plan of Care No further skilled OT services are indicated at this time with orders completed. See below for recommendations. -OT Recommendations for Staff: SB assist for toileting. Encourage active participation with grooming and bathing at the sink and dressing from EOB. Encourage frequent mobilization during the day. -OT Frequency during Hospitalization: 2-3 times/wk -Progressive Mobility Level: Level 5 -Plan of Care Reviewed With: care plan/treatment goals reviewed, patient, participants voiced agreement with care plan Education: OT role, POC, and recommendations Treatment Interventions/Objective Data Interventions to Optimize ADL Performance Grooming: Pt was able to wash face and hands and complete oral care while standing at the sink without need for assistance. Bathing: Pt completed sponge bathing while standing at the sink without need for physical assistance. No LOB or unsteadiness noted during performance. Dressing: Pt donned antwan gown over arms and head while standing and doffed/donned socks from EOB using figure 4 posture with no assistance. Toileting: Independent for clothing mgmt in standing as well as for heidi-area hygiene. Transfers and Functional Mobility: Independent for sit to stands and transfers. She was able to walk in room and bathroom without device, assist or LOB noted. Endurance/Activity Tolerance: good for session completed on RA without reports of SOB or dizziness. Vitals: HR: 87-110 bpm, O2: 97-96% on RA Subjective Thank you so much for taking the time to do this. Flowsheet Data 11/15/24 1027 OT Time and Intention OT Follow-Up Visit follow up treatment Mode of Treatment individual therapy;occupational therapy Patient Effort excellent Symptoms Noted During/After Treatment none General Information Patient Profile Reviewed yes Patient/Family/Caregiver Comments/Observations Thank you so much for taking the time to do this. General Observations of Patient Pt was received sitting EOB, in NAD and agreeable to OT session. Existing Precautions/Restrictions fall;other (see comments) (skin) Pain Assessment Pretreatment Pain Rating 0/10 - no pain Posttreatment Pain Rating 0/10 - no pain Cognition Behavioral Issues (Cognition) combative/physical outbursts Orientation Status (Cognition) oriented x 4 Follows Commands (Cognition) follows two-step commands Cognitive Function (Cognition) WNL Coping Observed Emotional State calm;cooperative;pleasant Verbalized Emotional State acceptance Safety Safety WDL WDL Safety Factors bed in low position;call light in reach All Alarms alarm(s) activated and audible Enhanced Safety Measures bed alarm set Progressive Mobility Progressive Mobility Level Achieved Ambulation [facility] Daily Activity Putting on and taking off Lower Body Clothing? 4 Bathing (including washing/rinsing/drying)? 4 Toileting (includes using toilet, bedpan, or urinal)? 4 Putting on and taking off upper body clothing? 4 Taking care of personal grooming such as brushing teeth? 4 Eating meals? 4 [facility] Daily Activity Score 24 Therapy Assessment/Plan (OT) Predicted Duration of Therapy Intervention (OT) Orders d/polina after session today Progress Summary (OT) Progress Toward Functional Goals (OT) progress toward functional goals is good Daily Progress Summary (OT) goals met Therapy Plan Review/Discharge Plan (OT) Therapy Plan Review (OT) care plan/treatment goals reviewed;patient;participants voiced agreement with care plan OT Recommendations for Staff SB assist for toileting. Encourage active participation with grooming and bathing at the sink and dressing from EOB. Encourage frequent mobilization during the day. Bed Mobility Goal 1 (OT) Progress/Outcomes (Bed Mobility Goal 1, OT) goal met Transfer Goal 1 (OT) Progress/Outcome (Transfer Goal 1, OT) goal met Dressing Goal 1 (OT) Progress/Outcome (Dressing Goal 1, OT) goal met Toileting Goal 1 (OT) Progress/Outcome (Toileting Goal 1, OT) goal met Grooming Goal 1 (OT) Progress/Outcome (Grooming Goal 1, OT) goal met Sign: Hannah Vaughn OT * Neil Padilla MD - 11/14/2024 1:27 PM EDT Cardiology Hospitalist Progress Note Principal Problem: Cardiac arrest (HCC) (POA: Yes) Resolved Problems: Assessment & Plan 54-year-old female with recently diagnosed NICM EF 25%, hypertension, hyperlipidemia, CKD, hypothyroidism, PEA cardiac arrest September 2024 transferred from [place] following an episode of unresponsiveness. Found to have acute pulmonary edema and acute respiratory failure. TTE demonstrates severely d iminished LV function, normal RV size and function, LVIDD 5.6cm, high- sensitivity troponin is mildly elevated. Diagnosed with acute R CFV DVT and started on anticoagulation. Assessment Acute medical issues: Acute respiratory failure with hypoxemia, resolved Cardiac arrest not TTM candidate Acute on chronic decompensated HFrEF, stage C AHA Pulmonary edema IVCD GILBERTO on CKD stage III Streptococcal pneumonia Acute metabolic encephalopathy Acute right CFV DVT Chronic conditions: Type 2 diabetes, A1c 6.0 Hypertension Hyperlipidemia CKD Hypothyroidism Anemia, normocytic and normochromic, Obesity BMI 36 Plan -Continue monitoring cardiac telemetry -2 g sodium diet - Continue diuretic therapy with furosemide 40 mg twice daily, closely monitor fluid balance, electrolyte status and renal function - IV chlorothiazide will be discontinued - GDMT with Entresto 24-26 mg twice daily, Coreg 6.25 mg twice daily, Jardiance 10 mg daily - Workup for renal artery stenosis with arterial Doppler ongoing, would be favoring severe LV dysfunction as is the reason for cardiopulmonary decompensation - Continue anticoagulation with subcutaneous Lovenox and therapeutic doses - Recurrent admissions with flash pulmonary edema and decompensated heart failure with who were notinvestigation regarding left main disease. Will discuss with general cardiology -nuclear stress test on 09/23 demonstrates a positive fixed area of ischemia with hypokinesia over the mid inferior, basal inferior, and apical inferior wall - Remains in the hospital today with ongoing diuresis and optimization of medical management and GDMT DVT PROPHYLAXIS Risk Assessment Scores and Dates: VTE Time Out IMPROVE SCORE: 2 (11/10/2024 9:01 AM) Interpretation - High Risk Chemical Prophylaxis enoxaparin (LOVENOX) syringe 90 mg Subcutaneous Every 12 hours Heparin Sodium (Porcine), Heparin (Porcine) in NaCl, Enoxaparin Sodium 90 mg Last dose 11/13/2024 11:31 PM Mechanical Prophylaxis Mechanical VTE prophylaxis NOT ordered. Click here to order if appropriate Subjective LOS: Day 4 Patient seen at the bedside in rounds this morning, denies chest pressure and denies lightheadedness or dizziness, no orthopnea or paroxysmal tunnel dyspnea Fluid balance negative -5.4 L from admission Telemetry:-NSR Objective Last Vitals Pulse:89,Resp:19,BP:131/72,SpO2:96 %,Weight:86.5 kg (190 lb 11.2 oz) Temp Last 24 hrs: Temp Min: 97.2 ??F (36.2 ??C) Max: 99.9 ??F (37.7 ??C) Intake/Output Summary (Last 24 hours) at 11/14/2024 1327 Last data filed at 11/14/2024 1000 Gross per 24 hour Intake 126 ml Output 1300 ml Net -1174 ml Physical Exam Constitutional:-awake, alert, oriented in no distress SKIN: Inspection of the skin reveals no rashes, ulcerations or petechiae. HEENT:-Normocephalic, Atraumatic,PEERLA, EOMI, no conjuctival jaundice or erythema noted,Mucous membranes moist, External ears w/o mass. External Ears w/o lesion, Nose w/o mass or lesion, Oropharynx w/o erythema, Oropharynx w/o edema. Neck:-Supple, no JVD, no carotid bruits, no thyroid masses or lymphadenopathy, trachea in the middle. Chest:-CTA, no wheezes, no rales, no rhonchi, equal breath sounds. CVS:-RRR, normal S1, normal S2, no S3, no S$, no click, gallops or murmurs, carotid upstroke is 2+ bilaterally with no bruit Abd:-soft, NT, BS active, no rebound, rigidity or guarding, no hernias, no venous distension, no bruits audible Extr:-well perfused, no edema, no cyanosis, no calf tenderness. Neurological Normal gait, No focal deficit, Normal speech, Normal tone, Strength equal bilateral, Reflexes equal bilateral, Sensation intact, Cranial nerves intact. Musculoskeletal:-No deformities. Skin:-No bruises, no echymosis, no petechias. Relevant data reviewed Labs and Radiology Notable labs are: No results found for: CK , HEATHER , TNI , BNP Lab Results Component Value Date PROBNP 2,385 (H) 11/10/2024 No results found for: HEATHER , TNI Lab Results Component Value Date WBC 6.2 11/14/2024 HGB 9.3 (L) 11/14/2024 HCT 29.2 (L) 11/14/2024 PLT 264 11/14/2024 Lab Results Component Value Date NA 136 11/14/2024 K 3.6 11/14/2024 CL 98 11/14/2024 CO2 24 11/14/2024 CO2 24 11/12/2024 BUN 46 (H) 11/14/2024 CREAT 1.6 (H) 11/14/2024 GLUC 139 (H) 11/14/2024 GLUC 112 (H) 11/14/2024 Lab Results Component Value Date TSH 2.76 11/10/2024 Imaging Studies Vas Venous Duplex - Leg Result Date: 11/11/2024 Table formatting from the original result was not included. Department: [facility] Patient: [id number] (MARLI HANNA) Patient Location: ..[address] CPT Code: 69889 ICD-9: Referring Physician: EDEL Erazo Critical Findings: [place] was given to ADDI Flores by Tegan El RVT at 11:41 am on 11/11/2024. Result: partial acute thrombus of right CFV Read Back Performed: Yes Right lower extremity venous duplex ultrasound exam demonstrates acute thrombus involving the common femoral vein. Diagnosis of acute thrombosis is supported by a low level of echogenicity of the thrombus in the distended vein. The remainder of the deep system is patent. Left lower extremity venous duplex ultrasound exam demonstrates normalDoppler flow with no thrombus seen in dan scale. Findings are not consistent with the presence of deep vein thrombosis. Indications Bilateral Swelling of Limb [M79.89]. 54 year old female presents with bilateral leg swelling. Findings: Right Impression Phasic Compressible Common Femoral Vein AcutePartial Thrombus Yes Partial Proximal femoral vein Normal Complete Mid femoral vein Normal CompleteDistal femoral vein Normal Complete Popliteal Normal Complete Posterior Tibial Vein Normal CompletePeroneal Normal Complete GSV Saphenofemoral junction Normal Complete Left Impression Phasic Compressible Common Femoral Vein Normal Yes Complete Proximal femoral vein Normal Complete Mid femoral veinNormal Complete Distal femoral vein Normal Complete Popliteal Normal Complete Posterior Tibial VeinNormal Complete Peroneal Normal Complete GSV Saphenofemoral junction Normal Complete ElectronicallySigned by: Mihai Vicente MD, MPH, RPVI on 2024-11-11 12:51:41 PM End of Report XR Chest 1 view-Portable Result Date: 11/11/2024 EXAMINATION: XR CHEST CLINICAL INFORMATION: Confirm ETT, s/p retraction. COMPARISON: XR Chest 11/10/2024 at 0645 hours TECHNIQUE: Frontal view of the chest was obtained on 11/10/2024 at 1501 hours. HEART & VASCULARITY: There are moderate cardiomegaly and increased pulmonary vascularity. LUNGS: Lungs are hypoinflated. Extensive alveolar infiltrates are seen in bilateral lungs. No pneumothorax is seen. LINES & SUPPORTING TUBES: Endotracheal tube is seen ending at 5.5 cm above sarah. Enteric tube is seen coiled up in left upper quadrant of abdomen. 1. Unchanged moderate cardiomegaly and pulmonary venous congestion. 2. Persistent hypoinflated lungs with Extensive alveolar infiltrates compatible with pulmonary edema due to congestive heart failure or bronchopneumonia. 3. Interval retraction of endotracheal tube away from sarah. 4. No interval change in position of coiled up enteric tube. XR Chest 1 view-Portable (STAT) Result Date: 11/11/2024 EXAMINATION: XR CHEST CLINICAL INFORMATION: Readjusted ET tube COMPARISON: Chest x-ray on 11/10/2024t 1501 hours TECHNIQUE: Frontal view of the chest was obtained on 11/11/2024 at 0527 hours. FINDINGS: HEART & VASCULARITY: There are moderate cardiomegaly and increased pulmonary vascularity. LUNGS: Lungs are hypoinflated. Extensive alveolar infiltrates are seen in bilateral lungs. No pneumothorax is seen. LINES & SUPPORTING TUBES: Endotracheal tube is seen ending at 1.0 cm above sarah. Enteric tube is seen coiled up in left upper quadrant of abdomen. 1. Unchanged moderate cardiomegaly and pulmonary venous congestion. 2. Unchanged hypoinflated lungswith Extensive alveolar infiltrates compatible with pulmonary edema due to congestive heart failureor bronchopneumonia. 3. Interval advancement of endotracheal tube close to sarah. 4. No interval change in position of coiled up enteric tube. XR Abdomen 1 view Result Date: 11/10/2024 EXAMINATION: XR ABDOMEN KUB CLINICAL INDICATION: Confirm OGT. COMPARISON: No prior plain film examination of the abdomen. Chest x-ray dated November 10, 2024. TECHNIQUE: Supine AP view of the abdomen. FINDINGS: The lower abdomen and right abdomen are cut off the image. The tip and sidehole of a presumed nasogastric tube project over the left upper quadrant, below the diaphragm. Suspect hepatosplenomegaly. No evidence of intestinal obstruction or free air. Mild degenerative changes of the spine. The patient is status post cholecystectomy. No acute finding. Echocardiogram (TTE) Comprehensive (Contrast PRN) Result Date: 11/10/2024 Left ventricular systolic function is severely decreased. The quantitative EF by 2D Zimmerman biplaneis 25%. Right ventricular systolic function is normal. Valve structure and function are normal. There is no previous study for comparison in our system. XR Chest 1 view-Portable Result Date: 11/10/2024 EXAMINATION: XR CHEST 1 VIEW-PORTABLE CLINICAL HISTORY: 54f s/p arrest; xfer [facility]; HARPREET;diminished bases; eval tube placement/ptx COMPARISON: Earlier same day FINDINGS: Tip of ETT terminates over the left mainstem bronchus approximately 2.5 cm distal of the bifurcation. Recommend retraction. The NG tube is stable. Persistent and unchanged symmetric bilateral interstitial and airspace opacities. No pneumothorax. Stable heart size and mediastinal contours. The aortic knob is poorly defined. 1. ETT placement. Recommend retraction. 2. Stable bilateral infiltrates. 3. Superior mediastinal prominence. Consider CT follow-up correlation as clinically warranted. This may reflect technique. RECOMMENDATIONS: MAN Archive for reference only CR Result Date: 11/10/2024 This order has been auto-finalized and does not contain a result. MAN Archive for reference only CR Result Date: 11/10/2024 This order has been auto-finalized and does not contain a result. Sign Neil Padilla MD 11/14/2024 1:27 PM * Nan Dietz MD - 11/14/2024 11:20 AM EDT CARDIOLOGY FELLOWS SERVICE PROGRESS NOTE Date of Consult: 11/14/2024 Patient's Primary Care Physician: No primary care provider on file. Reason for Consultation: s/p arrest ; HFrEF exacerbation Admit Date: 11/10/2024 6:20 AM Assessment & Plan 54-year-old female with a history of obesity, hypothyroidism, CKD, hypertension, hyperlipidemia, and recently diagnosed HFrEF (25%) secondary to a suspected prior PEA cardiac arrest in September 2024 who was transferred from outside hospital following an unresponsive episode, concerning for an another cardiac arrest vs respiratory arrest. Family said patient collapsed in car on arrival to ED; unclear if she had true loss of pulses and what initial rhythm was. Upon transfer to , she was deemed not a candidate for TTM; cardiology have been consulted for further recommendations 2 unresponsive episodes. Recurrent Collapse secondrary to acute pulmonary edema Acute decompensated heart failure History of recently diagnosed HFrEF (25%) Chronic Kidney Disease stage 3 Hypertension Hyperlipidemia Hypothyroidism Obesity Diabetes mellitus (A1c 6.0) Likely undiagnosed obstructive sleep apnea Acute R common femoral partial DVT TTE 11/10/2024: Normal LV size, eccentric hypertrophy, severely decreased LV function, global anginal strain is -6.3%, global hypokinesis, normal RV size and function, normal atria, no valvular disease, no pericardial effusion. LVIDD 5.6 cm WNL; LVOT VTI 16.1 cm Troponins have downtrended (79 --> 70). Creatinine better with diuresis (1.8 --> 1.5) Transferrin 189, ferritin 114, iron sat 7, iron 16, HIV negative Bilateral leg DVT studies : R partial DVT Although patient does not have evident pitting edema and her JVD is difficult to assess, her elevated BNP, classical history for dyspnea with pulmonary edema, and chest x-ray support acute decompensated heart failure. Especially since she was not on a diuretic at home. Family also mentioned that patient frequently snores at night and sometimes has apneic episodes briefly-she likely had undiagnosed FRANCISCO as well. Considering these factors, we suspect that her 2 sudden collapses were likely respiratory arrests from acute pulmonary edema. Plan -- Continue IV Lasix 40 mg twice daily. We can stop the IV chlorothiazide 250mg - Continue jardiance 10mg daily -- Continue home coreg 6.25 bid -- Please start entresto 24-26mg bid today -- Follow-up bilateral renal artery ultrasound - Patient will need an ischemic evaluation at some point, once she is more euvolemic and optimized.We are still assessing whether will be inpatient vs outpatient. -- Patient currently on lovenox injections for DVT treatment. Would continue for now. Once we know if patient is not having inpatient cath (or post-cath), can then transition to PO anticoagulation. - Patient should start iron supplementation prior to discharge - Please maintain on telemetry. Monitor BMP/mag closely; please aim for K 4< and Mg 2<. Patient seen with Dr. Giraldo. The plan is considered preliminary until co- signed by the attendingphysician. Subjective Today: Patient downgraded from ICU overnight. Is doing well - has mobilized to bathroom and back. Says chest is sore, on coughing particularly. Appears much more euvolemic. Hospital Course Summary: 54-year-old female with a history of obesity, hypothyroidism, CKD, hypertension, hyperlipidemia, and recently diagnosed HFrEF (25%) secondary to a suspected prior PEA cardiac arrest in September 2024 who was transferred from outside hospital following an unresponsive episode, concerning for an another cardiac arrest vs respiratory arrest. History obtained primarily from chart review and collateral history from patient mother and son by bedside. In September 2024, she went to an outside hospital after she was acutely short of breath and felt like she was going to . Per mother, immediately upon arrival, patient became unresponsive.Had CPR ; chart documentation details PEA arrest secondary to likely respiratory arrest. Patient was diuresed that admission; she was also found to have a new EF of 20-25%. In the chart, she is also noted to have had a nuclear stress test on 09/23 which showed a positive fixed area of ischemia with hypokinesia over the mid inferior, basal inferior, and apical inferior wall. She was discharged on amlodipine 5 mg daily, aspirin 81 mg daily, Lipitor 40 mg daily, Coreg 6.25 mg daily, Trulicity, and levothyroxine 0.137 mg daily. She was not discharged with a diuretic. Patient was planned to have outpatient cardiology appointment (family stated patient had an upcoming appointment at [facility] this week close) and also being planned for future outpatient cath and a Zio patch. However, 11/09 night, patient called her mother around 10 PM saying again that she felt like she could not breathe and was going to . On arrival, mother noted that patient was wheezing significantly and very short of breath. She seemed to also be foaming at the mouth with bubbly sputum. She immediately drove the patient to the outside hospital. However, patient became unresponsive in the parking lot per documentation. Unclear if loss of pulses and what initial rhythm may have been. Seems to have likely been a respiratory arrest-patient quickly achieved ROSC after approximately 4 minutes of CPR. When she was being intubated, vomit was noted in her area intubation. Per documentation, patient was following commands and alert just before intubation. She was transferred to [facility] for CCU evaluation and further care. In our ED, patient febrile 100.6, pulse between 80-90, respiratory rate 16, blood pressure normotensive 119/58. Labs on arrival: Hb 10.5, plts 361, na 137, K 4, cl 104, co2 19, Cr 1.8, ca 8.5, ALT 54, trop 79, probnp 2385, TSH 2.76. Latest ABG pH 7.24, CO2 51, O2 65, bicarb 23. Chest x-ray shows diffuse pulmonary congestion. She was deemed not to be a TTM candidate. Review of Systems The review of systems was negative, other than that stated above. Objective Past History No past medical history on file. No past surgical history on file. No family history on file. Medications Prior to Admission Medications: Medications Prior to Admission Medication Sig Dispense Refill Last Dose glipiZIDE (GLUCOTROL) 10 MG tablet 1 tablet (10 mg total) by Mouth/Oral Cavity route every 12 hours. sodium bicarbonate 650 MG tablet 1 tablet (650 mg total) by Mouth/Oral Cavity route every 12 hours. amLODIPine (NORVASC) 10 MG tablet Take 1 tablet (10 mg total) by mouth 2 times a day. Aspirin Low Dose 81 MG EC tablet Take 1 tablet (81 mg total) by mouth daily. atorvastatin (LIPITOR) 40 MG tablet Take 1 tablet (40 mg total) by mouth nightly. carvedilol (COREG) 6.25 MG tablet Take 1 tablet (6.25 mg total) by mouth 2 times a day. famotidine (PEPCID) 20 MG tablet Take 1 tablet (20 mg total) by mouth nightly. levothyroxine (SYNTHROID, LEVOTHROID) 137 MCG tablet Take 137 mcg by mouth every morning. lisinopril (PRINIVIL,ZeSTRIL) 40 MG tablet Take 1 tablet (40 mg total) by mouth daily. metFORMIN (GLUCOPHAGE-XR) 500 MG 24 hr tablet Take 2 tablets (1,000 mg total) by mouth 2 times a day. metoPROLOL TARTRATE (LOPRESSOR) 100 MG tablet Take 1 tablet (100 mg total) by mouth 2 times a day. Trulicity 1.5 MG/0.5ML prefilled pen injection Inject 1.5 mg under the skin once a week. Current Medications / MAR: Medications Scheduled Medication Ordered Dose/Rate, Route, Frequency Last Action [Provider Held] amLODIPine (NORVASC) tablet 10 mg On hold since yesterday at 1542 until manually unheld; held by Hiram Olmedo Reason: NPO On hold since yesterday at 1542 until manually unheld Hold reason: NPO 10 mg, PO, BID Ordered aspirin chewable tablet 81 mg 81 mg, PO, Daily Given, 81 mg at 11/14 0915 [Provider Held] aspirin enteric coated (ECOTRIN LOW STRENGTH) tablet 81 mg On hold since yesterday at 1542 until manually unheld; held by AXEL Olmedo Reason: NPO On hold since yesterday at 1542 until manually unheld Hold reason: NPO 81 mg, PO, Daily Ordered [Provider Held] atorvastatin (LIPITOR) tablet 40 mg On hold since yesterday at 1542 until manually unheld; held by Hiram Olmedo Reason: NPO On hold since yesterday at 1542 until manually unheld Hold reason: NPO 40 mg, PO, Nightly Ordered atorvastatin (LIPITOR) tablet 40 mg 40 mg, PO, Daily Given, 40 mg at 11/14 0915 [Provider Held] carvedilol (COREG) tablet 6.25 mg On hold since yesterday at 1542 until manually unheld; held by Hiram Olmedo Reason: NPO On hold since yesterday at 1542 until manually unheld Hold reason: NPO 6.25 mg, PO, BID Ordered carvedilol (COREG) tablet 6.25 mg 6.25 mg, PO, BID with meals Given, 6.25 mg at 11/14 914 cefTRIAXone (ROCEPHIN) 1 g in sodium chloride-MBP (NS) 100 mL IVPB-MBP 1 g, IV, Q24H Stopped, 11/14 1000 chlorhexidine gluconate 2 % wipes - central line CHG application No Dose/Rate, TOP, Daily Given, 1 each at 11/11 1252 empagliflozin (JARDIANCE) tablet 10 mg 10 mg, PO, Daily Given, 10 mg at 11/14 914 enoxaparin (LOVENOX) syringe 90 mg 1 mg/kg, SC, Q12H Given, 90 mg at 11/13 2331 famotidine (PEPCID) tablet 20 mg 20 mg, PO, Daily Given, 20 mg at 11/14 914 furosemide (LASIX) injection 40 mg 40 mg, IV, BID Given, 40 mg at 11/14 913 insulin lispro (HumaLOG/ADMELOG) 100 units/mL injection 1-6 Units 1-6 Units, SC, TID with meals Ordered [Provider Held] levothyroxine (SYNTHROID, LEVOTHROID) tablet 137 mcg On hold since yesterday at 1542 until manually unheld; held by ADDI Olmedo-Vira Reason: NPO On hold since yesterday at 1542 until manually unheld Hold reason: NPO 137 mcg, PO, QAM Ordered levothyroxine (SYNTHROID, LEVOTHROID) tablet 137 mcg 137 mcg, PO, Daily 6AM Given, 137 mcg at 11/14 0518 multivitamin tablet 1 tablet 1 tablet, PO, Daily Given, 1 tablet at 11/14 914 senna-docusate (SENNA-S) 8.6-50 MG tablet 2 tablet 2 tablet, PO, Nightly Given, 2 tablet at 11/139 PRN Medication Ordered Dose/Rate, Route, Frequency Last Action acetaminophen (TYLENOL) tablet 650 mg 650 mg, PO, Q6H PRN Given, 650 mg at 11/14 0843 bisacodyl (DULCOLAX) suppository 10 mg 10 mg, RE, Daily PRN Ordered dextrose 50 % solution 12.5 g (Or Linked Group #1) 12.5 g, IV, Q15 Min PRN Ordered dextrose 50 % solution 25 g (Or Linked Group #1) 25 g, IV, Q15 Min PRN Ordered glucagon (GLUCAGEN) injection 1 mg (Or Linked Group #1) 1 mg, IM, Daily PRN Ordered glucose (GLUTOSE 15) 40 % oral gel 37.5 g (Or Linked Group #1) 1 Tube, PO, Q15 Min PRN Ordered glucose (GLUTOSE 15) 40 % oral gel 75 g (Or Linked Group #1) 2 Tube, PO, Q15 Min PRN Ordered lactulose (ENULOSE) 10 gm/15 mL solution 20 g 30 mL, PO, Q4H PRN Ordered naloxone (NARCAN) 0.4 mg/mL injection 0.4 mg 0.4 mg, IV, Q5 Min PRN Ordered perflutren lipid microsphere (DEFINITY) 1.3 mL in sodium chloride (NS) 0.9 % 10 mL 0.5-8 mL, IV, Once in imaging Ordered Allergies No Known Allergies Vital Signs Pulse:89,Resp:19,BP:131/72,SpO2:96 %,Weight:86.5 kg (190 lb 11.2 oz) Temp Last 24 hrs: Temp Min: 97.2 ??F (36.2 ??C) Max: 99.9 ??F (37.7 ??C) Intake/Output Summary (Last 24 hours) at 11/14/2024 1120 Last data filed at 11/14/2024 1000 Gross per 24 hour Intake 525.75 ml Output 1525 ml Net -999.25 ml Physical Examination General: Well-developed. Well-nourished. Resting comfortably. Obese. HEENT: Normocephalic, atraumatic. PERRLA. EOMI. Mucous membranes moist. Neck: Difficult to assess JVP Cardiovascular: Regular rate. Regular rhythm. No murmrs, gallops, or rubs. Respiratory: Adequate respiratory effort. Wheezing Abdomen: Soft. Nondistended. Nontender. No rigidity or guarding. Normoactive bowel sounds. Extremities: no sacral or bilateral lower extremity edema. Skin: Warm, dry. Neurologic: Awake. Alert. No gross focal deficits. Moves all four extremities spontaneously. Relevant Data Reviewed: Results from last 7 days Lab Units 11/14/24 0820 11/14/24 0650 11/13/24204411/13/24 1614 11/13/24 1205 11/12/24 2351 11/12/24 2350 11/11/24 0336 11/11/24 0001 11/10/24 0750 11/10/24 0642 SODIUM mmol/L -- 136 -- -- 137 -- 138 < > 139 < > 137 POTASSIUM mmol/L -- 3.6 -- -- 4.0 -- 4.0 < > 3.8 < > 4.0 CHLORIDE mmol/L -- 98 -- -- 102 -- 104 < > 107 < > 104 CO2 mmol/L -- 24 -- -- 22 -- 23 < > 22 < > 19* CO2, TOTAL -- -- -- -- -- -- -- < > -- < > -- BUN mg/dL -- 46* -- -- 41* -- 38* < > 33* < > 31* CREATININE mg/dL -- 1.6* -- -- 1.5* -- 1.5* < > 1.7* < > 1.8* CALCIUM mg/dL -- 9.4 -- -- 9.5 -- 9.3 < > 8.8 < > 8.5* GLUCOSE mg/dL -- 112* -- -- 136* -- 116* < > 139* < > 217* GLUCOSE, POC mg/dL 128* -- 158* < > -- < > -- < > -- < > -- EGFR -- 38* -- -- 41* -- 41* < > 36* < > 33* ALBUMIN g/dL -- -- -- -- -- -- -- -- 3.5 -- 3.4* PROTEIN, TOTAL g/dL -- -- -- -- -- -- -- -- 7.4 -- 7.1 BILIRUBIN TOTAL mg/dL -- -- -- -- -- -- -- -- 0.8 -- 0.6 ALK PHOS U/L -- -- -- -- -- -- -- -- 96 -- 109 ALT U/L -- -- -- -- -- -- -- -- 49 -- 54* AST U/L -- -- -- -- -- -- -- -- 36 -- 46 < > = values in this interval not displayed. Lab Results Component Value Date MG 2.1 11/14/2024 Results from last 7 days Lab Units 11/14/24 0650 11/12/24 2350 11/11/24 2343 11/11/24 1243 11/11/24 0001 11/10/24 0642 WHITE BLOOD CELL COUNT Thou/uL 6.2 8.0 7.1 6.3 < > 13.2* HEMOGLOBIN g/dL 9.3* 9.3* 9.1* 8.5* < > 10.5* HEMATOCRIT % 29.2* 29.4* 29.7* 28.1* < > 33.7* PLATELET COUNT Thou/uL 264 233 215 202 < > 361 NEUTROS PCT % -- -- -- 69.4 -- 71.7 LYMPHS PCT % -- -- -- 17.9 -- 17.6 MONOS PCT % -- -- -- 11.7 -- 9.5 EOS PCT % -- -- -- 0.3 -- 0.1 BASOS PCT % -- -- -- 0.2 -- 0.3 < > = values in this interval not displayed. Lab Results Component Value Date HSTNT 70 () 11/10/2024 HSTNT 79 () 11/10/2024 Lab Results Component Value Date PROBNP 2,385 (H) 11/10/2024 Lab Results Component Value Date HGBA1C 6.0 (H) 11/12/2024 No results found for: CHOL No results found for: HDL No results found for: LDLCALC Lab Results Component Value Date TRIG 210 (H) 11/10/2024 No results found for: CHOLHDL ECG: TELE: Imaging Studies: Echocardiogram (TTE) Comprehensive (Contrast PRN) Result Date: 11/10/2024 Left ventricular systolic function is severely decreased. The quantitative EF by 2D Zimmerman biplane is 25%. Right ventricular systolic function is normal. Valve structure and function are normal. There is no previous study for comparison in our system. Sign: Nan Dietz MD Internal Medicine PGY-2 [facility] 11/14/2024 11:20 AM Available via [employer] 24/03 at [facility] Consult Service Associated attestation - Yung Giraldo MD - 11/14/2024 11:44 AM EDT Ms. Hanna was seen and examined with Dr. Almanza and I agree with her assessment and plan. I wouldsuggest renal artery ultrasounds to exclude renal artery stenosis as a cause of her flash pulmonaryedema and also recommend coronary angiography to make sure that she does not have severe triple-vessel disease. * Nan Dietz MD - 11/13/2024 11:49 AM EDT CARDIOLOGY FELLOWS SERVICE PROGRESS NOTE Date of Consult: 11/13/2024 Patient's Primary Care Physician: No primary care provider on file. Reason for Consultation: s/p arrest ; HFrEF exacerbation Admit Date: 11/10/2024 6:20 AM Assessment & Plan 54-year-old female with a history of obesity, hypothyroidism, CKD, hypertension, hyperlipidemia, and recently diagnosed HFrEF (25%) secondary to a suspected prior PEA cardiac arrest in September 2024 who was transferred from outside hospital following an unresponsive episode, concerning for an another cardiac arrest vs respiratory arrest. Family said patient collapsed in car on arrival to ED; unclear if she had true loss of pulses and what initial rhythm was. Upon transfer to , she was deemed not a candidate for TTM; cardiology have been consulted for further recommendations regarding recent cardiac arrest. Recurrent Collapse - unclear if true loss of pulses or electrical activity; likely respiratory arrest Acute decompensated heart failure History of recently diagnosed HFrEF (25%) Chronic Kidney Disease stage 3 Hypertension Hyperlipidemia Hypothyroidism Obesity Diabetes mellitus (A1c 6.0) Likely undiagnosed obstructive sleep apnea Acute R common femoral partial DVT TTE 11/10/2024: Normal LV size, eccentric hypertrophy, severely decreased LV function, global anginal strain is -6.3%, global hypokinesis, normal RV size and function, normal atria, no valvular disease, no pericardial effusion. LVIDD 5.6 cm WNL; LVOT VTI 16.1 cm Troponins have downtrended (79 --> 70). Creatinine improving with diuresis (1.8 --> 1.5) Transferrin 189, ferritin 114, iron sat 7, iron 16, HIV negative Bilateral leg DVT studies negative Although patient does not have evident pitting edema and her JVD is difficult to assess, her elevated BNP, classical history for dyspnea with pulmonary edema, chest x-ray support fluid overload from acute decompensated heart failure. Especially since she was not on a diuretic at home. Family also mentioned that patient frequently snores at night and sometimes has apneic episodes briefly-she likely had undiagnosed FRANCISCO as well. Considering these factors, we suspect that her 2 sudden collapses were likely respiratory arrests. Plan -- Continue IV Lasix 40 mg twice daily and the IV chlorothiazide 250mg daily: we want to continue diuresing her well - Please start jardiance 10mg daily -- Continue home coreg 6.25 bid - Please maintain on telemetry. Monitor BMP/mag closely; please aim for K 4< and Mg 2<. -- In the setting of HTN and flash edema, we would recommend doing a bilateral renal artery ultrasound - Patient should start iron supplementation prior to discharge - Patient will need an ischemic evaluation at some point, once she is more euvolemic and optimized.May be inpatient vs outpatient. - If possible, please consider swapping from heparin drip to therapeutic lovenox injections for theDVT to minimize volume intake Patient seen with Dr. Giraldo. The plan is considered preliminary until co- signed by the attendingphysician. Subjective Summary: 54-year-old female with a history of obesity, hypothyroidism, CKD, hypertension, hyperlipidemia, and recently diagnosed HFrEF (25%) secondary to a suspected prior PEA cardiac arrest in September 2024 who was transferred from outside hospital following an unresponsive episode, concerning for an another cardiac arrest vs respiratory arrest. History obtained primarily from chart review and collateral history from patient mother and son by bedside. In September 2024, she went to an outside hospital after she was acutely short of breath and felt like she was going to . Per mother, immediately upon arrival, patient became unresponsive.Had CPR ; chart documentation details PEA arrest secondary to likely respiratory arrest. Patient was diuresed that admission; she was also found to have a new EF of 20-25%. In the chart, she is also noted to have had a nuclear stress test on 09/23 which showed a positive fixed area of ischemia with hypokinesia over the mid inferior, basal inferior, and apical inferior wall. She was discharged on amlodipine 5 mg daily, aspirin 81 mg daily, Lipitor 40 mg daily, Coreg 6.25 mg daily, Trulicity, and levothyroxine 0.137 mg daily. She was not discharged with a diuretic. Patient was planned to have outpatient cardiology appointment (family stated patient had an upcoming appointment at [facility] this week close) and also being planned for future outpatient cath and a Zio patch. However, 11/09 night, patient called her mother around 10 PM saying again that she felt like she could not breathe and was going to . On arrival, mother noted that patient was wheezing significantly and very short of breath. She seemed to also be foaming at the mouth with bubbly sputum. She immediately drove the patient to the outside hospital. However, patient became unresponsive in the parking lot per documentation. Unclear if loss of pulses and what initial rhythm may have been. Seems to have likely been a respiratory arrest-patient quickly achieved ROSC after approximately 4 minutes of CPR. When she was being intubated, vomit was noted in her area intubation. Per documentation, patient was following commands and alert just before intubation. She was transferred to [facility] for CCU evaluation and further care. In our ED, patient febrile 100.6, pulse between 80-90, respiratory rate 16, blood pressure normotensive 119/58. Labs on arrival: Hb 10.5, plts 361, na 137, K 4, cl 104, co2 19, Cr 1.8, ca 8.5, ALT 54, trop 79, probnp 2385, TSH 2.76. Latest ABG pH 7.24, CO2 51, O2 65, bicarb 23. Chest x-ray shows diffuse pulmonary congestion. She was deemed not to be a TTM candidate. Today: Patient extubated last night successfully. On room air currently, talking and doing well. Says she is med compliant at home. Says she gets a home nurse to visit her daily. She is not very active at home - stays on the first floor mostly, does not do stairs often. Says the only chest pain she had athome was from the compressions she had after the 1st arrest. Review of Systems The review of systems was negative, other than that stated above. Objective Past History No past medical history on file. No past surgical history on file. No family history on file. Medications Prior to Admission Medications: Medications Prior to Admission Medication Sig Dispense Refill Last Dose glipiZIDE (GLUCOTROL) 10 MG tablet 1 tablet (10 mg total) by Mouth/Oral Cavity route every 12 hours. sodium bicarbonate 650 MG tablet 1 tablet (650 mg total) by Mouth/Oral Cavity route every 12 hours. amLODIPine (NORVASC) 10 MG tablet Take 1 tablet (10 mg total) by mouth 2 times a day. Aspirin Low Dose 81 MG EC tablet Take 1 tablet (81 mg total) by mouth daily. atorvastatin (LIPITOR) 40 MG tablet Take 1 tablet (40 mg total) by mouth nightly. carvedilol (COREG) 6.25 MG tablet Take 1 tablet (6.25 mg total) by mouth 2 times a day. famotidine (PEPCID) 20 MG tablet Take 1 tablet (20 mg total) by mouth nightly. levothyroxine (SYNTHROID, LEVOTHROID) 137 MCG tablet Take 137 mcg by mouth every morning. lisinopril (PRINIVIL,ZeSTRIL) 40 MG tablet Take 1 tablet (40 mg total) by mouth daily. metFORMIN (GLUCOPHAGE-XR) 500 MG 24 hr tablet Take 2 tablets (1,000 mg total) by mouth 2 times a day. metoPROLOL TARTRATE (LOPRESSOR) 100 MG tablet Take 1 tablet (100 mg total) by mouth 2 times a day. Trulicity 1.5 MG/0.5ML prefilled pen injection Inject 1.5 mg under the skin once a week. Current Medications / MAR: Medications Scheduled Medication Ordered Dose/Rate, Route, Frequency Last Action aspirin chewable tablet 81 mg 81 mg, PO, Daily Given, 81 mg at 11/13 0804 atorvastatin (LIPITOR) tablet 40 mg 40 mg, PO, Daily Given, 40 mg at 11/13 0804 carvedilol (COREG) tablet 6.25 mg 6.25 mg, PO, BID with meals Given, 6.25 mg at 11/13 0804 cefTRIAXone (ROCEPHIN) 1 g in sodium chloride-MBP (NS) 100 mL IVPB-MBP 1 g, IV, Q24H New Bag, 1 g at 11/12 1020 chlorhexidine gluconate 2 % wipes - central line CHG application No Dose/Rate, TOP, Daily Given, 1 each at 11/11 1252 chlorothiazide (DIURIL) 250 mg in sodium chloride (NS) 0.9 % 50 mL IVPB 250 mg, IV, Once Ordered enoxaparin (LOVENOX) syringe 90 mg 1 mg/kg, SC, Q12H Ordered famotidine (PEPCID) tablet 20 mg 20 mg, PO, Daily Given, 20 mg at 11/14 803 furosemide (LASIX) injection 40 mg 40 mg, IV, BID Given, 40 mg at 11/13 08 levothyroxine (SYNTHROID, LEVOTHROID) tablet 137 mcg 137 mcg, PO, Daily 6AM Given, 137 mcg at 11/13 06 multivitamin tablet 1 tablet 1 tablet, PO, Daily Given, 1 tablet at 11/14 803 senna-docusate (SENNA-S) 8.6-50 MG tablet 2 tablet 2 tablet, PO, Nightly Given, 2 tablet at 11/12 2008 PRN Medication Ordered Dose/Rate, Route, Frequency Last Action acetaminophen (TYLENOL) tablet 650 mg 650 mg, PO, Q6H PRN Given, 650 mg at 11/12 2008 bisacodyl (DULCOLAX) suppository 10 mg 10 mg, RE, Daily PRN Ordered dextrose 50 % solution 12.5 g (Or Linked Group #1) 12.5 g, IV, Q15 Min PRN Ordered dextrose 50 % solution 25 g (Or Linked Group #1) 25 g, IV, Q15 Min PRN Ordered glucagon (GLUCAGEN) injection 1 mg (Or Linked Group #1) 1 mg, IM, Daily PRN Ordered glucose (GLUTOSE 15) 40 % oral gel 37.5 g (Or Linked Group #1) 1 Tube, PO, Q15 Min PRN Ordered glucose (GLUTOSE 15) 40 % oral gel 75 g (Or Linked Group #1) 2 Tube, PO, Q15 Min PRN Ordered lactulose (ENULOSE) 10 gm/15 mL solution 20 g 30 mL, PO, Q4H PRN Ordered naloxone (NARCAN) 0.4 mg/mL injection 0.4 mg 0.4 mg, IV, Q5 Min PRN Ordered perflutren lipid microsphere (DEFINITY) 1.3 mL in sodium chloride (NS) 0.9 % 10 mL 0.5-8 mL, IV, Once in imaging Ordered Allergies No Known Allergies Vital Signs Pulse:87,Resp:19,BP:(!) 104/58,SpO2:93 %,Weight:90.5 kg (199 lb 8.3 oz) Temp Last 24 hrs: Temp Min: 99.1 ??F (37.3 ??C) Max: 100.9 ??F (38.3 ??C) Intake/Output Summary (Last 24 hours) at 11/13/2024 1149 Last data filed at 11/13/2024 1100 Gross per 24 hour Intake 1150.46 ml Output 2295 ml Net -1144.54 ml Physical Examination General: Well-developed. Well-nourished. Resting comfortably. Obese. HEENT: Normocephalic, atraumatic. PERRLA. EOMI. Mucous membranes moist. Neck: Difficult to assess JVP Cardiovascular: Regular rate. Regular rhythm. No murmrs, gallops, or rubs. Respiratory: Adequate respiratory effort. No wheezing Abdomen: Soft. Nondistended. Nontender. No rigidity or guarding. Normoactive bowel sounds. Extremities: no sacral or bilateral lower extremity edema. Skin: Warm, dry. Neurologic: Awake. Alert. No gross focal deficits. Moves all four extremities spontaneously. Relevant Data Reviewed: Results from last 7 days Lab Units 11/13/24 0731 11/12/24 2351 11/12/24 2350 11/12/24 1512 11/12/24 1312 11/12/24 1137 11/12/24 1015 11/12/24 0339 11/11/24 2343 11/11/24 0336 11/11/24 0001 11/10/24 0750 11/10/24 0642 SODIUM mmol/L -- -- 138 -- 142 -- -- -- 140 < > 139 < > 137 POTASSIUM mmol/L -- -- 4.0 -- 4.3 -- -- -- 3.9 < > 3.8 < > 4.0 CHLORIDE mmol/L -- -- 104 -- 108* -- -- -- 109* < > 107 < > 104 CO2 mmol/L -- -- 23 -- 21* -- -- -- 22 < > 22 < > 19* CO2, TOTAL mmol/L -- -- -- -- -- -- 24 -- -- -- -- < > -- BUN mg/dL -- -- 38* -- 36* -- -- -- 35* < > 33* < > 31* CREATININE mg/dL -- -- 1.5* -- 1.4* -- -- -- 1.5* < > 1.7* < > 1.8* CALCIUM mg/dL -- -- 9.3 -- 9.3 -- -- -- 9.2 < > 8.8 < > 8.5* GLUCOSE mg/dL -- -- 116* -- 157* -- -- -- 144* < > 139* < > 217* GLUCOSE, POC mg/dL 131* 114* -- < > -- < > -- < > -- < > -- < > -- EGFR -- -- 41* -- 45* -- -- -- 41* < > 36* < > 33* ALBUMIN g/dL -- -- -- -- -- -- -- -- -- -- 3.5 -- 3.4* PROTEIN, TOTAL g/dL -- -- -- -- -- -- -- -- -- -- 7.4 -- 7.1 BILIRUBIN TOTAL mg/dL -- -- -- -- -- -- -- -- -- -- 0.8 -- 0.6 ALK PHOS U/L -- -- -- -- -- -- -- -- -- -- 96 -- 109 ALT U/L -- -- -- -- -- -- -- -- -- -- 49 -- 54* AST U/L -- -- -- -- -- -- -- -- -- -- 36 -- 46 < > = values in this interval not displayed. Lab Results Component Value Date MG 1.9 11/12/2024 Results from last 7 days Lab Units 11/12/24 2350 11/11/24 2343 11/11/24 1243 11/11/24 0001 11/10/24 0642 WHITE BLOOD CELL COUNT Thou/uL 8.0 7.1 6.3 < > 13.2* HEMOGLOBIN g/dL 9.3* 9.1* 8.5* < > 10.5* HEMATOCRIT % 29.4* 29.7* 28.1* < > 33.7* PLATELET COUNT Thou/uL 233 215 202 < > 361 NEUTROS PCT % -- -- 69.4 -- 71.7 LYMPHS PCT % -- -- 17.9 -- 17.6 MONOS PCT % -- -- 11.7 -- 9.5 EOS PCT % -- -- 0.3 -- 0.1 BASOS PCT % -- -- 0.2 -- 0.3 < > = values in this interval not displayed. Lab Results Component Value Date HSTNT 70 () 11/10/2024 HSTNT 79 () 11/10/2024 Lab Results Component Value Date PROBNP 2,385 (H) 11/10/2024 Lab Results Component Value Date HGBA1C 6.0 (H) 11/12/2024 No results found for: CHOL No results found for: HDL No results found for: LDLCALC Lab Results Component Value Date TRIG 210 (H) 11/10/2024 No results found for: CHOLHDL ECG: TELE: Imaging Studies: Echocardiogram (TTE) Comprehensive (Contrast PRN) Result Date: 11/10/2024 Left ventricular systolic function is severely decreased. The quantitative EF by 2D Zimmerman biplane is 25%. Right ventricular systolic function is normal. Valve structure and function are normal. There is no previous study for comparison in our system. Sign: Nan Dietz MD Internal Medicine PGY-2 [facility] 11/13/2024 11:49 AM Available via [employer] 24/03 at [facility] Consult Service Associated attestation - Yung Giraldo MD - 11/14/2024 9:00 AM EDT Ms. Hanna was seen and examined with Dr. Dietz and I agree with Dr. Dietz's assessment and plan with the exception that I would not label her tow events as cardiac arrests or even arrests . We spoke with her mother who drove her to the hospital each time and she describes the patient havingextreme dyspnea and frothy sputum so I am suspicious about acute pulmonary edema. That differential includes mitral apparatus ischemia, occult not hypertensive renal artery stenosis, and hypertensivecrisis. We suggest continued diuresis until she develops signs of volume contraction such as increasing creat and decreasing Cl, monitoring to observe rhythms, renal artery ultrasound, and probably coronary angiography to evaluate her reduced ef. * Neil Rivera MD - 11/13/2024 10:30 AM EDT Critical Care Progress Note Assessment 54 y.o. female with history of obesity, hypothyroidism, CKD, HFrEF who presented with cardiac arrest. Active Problems: Cardiac arrest-not a TTM candidate Shock likely cardiogenic -resolved Acute hypoxemic respiratory failure Strept pneumo PNA Acute on possibly chronic HFrEF Acute cardiogenic pulmonary edema NSTEMI type II, demand GILBERTO on CKD3 Acute metabolic encephalopathy Anemia Acute right common femoral DVT Comorbid Conditions: Obesity Hypothyroidism Possible HFrEF Hypertension, hyperlipidemia Diabetes CKD3 Total LOS: 3 days Overnight Extubated overnight Now on RA Doing much better Plan by System I performed rounds on the medical unit with the entire critical care team and we discussed the events below while developing the daily treatment plan: Neuro: CAM-ICU Delirium Present: Negative Henao Agitation Sedation Scale (RASS) / Modified RASS: 0-->alert and calm Acute metabolic encephalopathy S/p arrest; 4 mins before ROSC Awake and O , follows commands Can hold off CT head as she is following commands Was Not a TTM candidate Resp: Down to RA Seems like flash edema No RH strain on ECHO sonot consistent with PE leading to cardiac arrest CV: Shock, likely cardiogenic and septic-resolved NSTEMI type II, demand Acute on chronic HFrEF with EF 25% Heart is massive on CXR EKG nonischemic Elevated proBNP Norvasc DC and should not restart Was not on diuretic at home Will make sure we work with heart failure team at time of DC to keep volume status managed as much as possible >Echo: 11/10 Left ventricular systolic function is severely decreased. The quantitative EF by 2D Zimmerman biplaneis 25%. Right ventricular systolic function is normal. Valve structure and function are normal. There is no previous study for comparison in our system. GI: Cont tube feeds Bowel regimen LFT PPI >Nutrition: Diet/Nutrition Received: NPO, ice chips Diet Regular Renal: GILBERTO on CKD-unknown baseline -improving Keep O>I 2 L; no change Remove Tate >Intake & Output Intake/Output Summary (Last 24 hours) at 11/13/2024 1030 Last data filed at 11/13/2024 1000 Gross per 24 hour Intake 1189.16 ml Output 2530 ml Net -1340.84 ml I/O last 3 completed shifts: In: 2517.4 [I.V.:1218.4; NG/GT:940; IV Piggyback:359] Out: 4395 [Urine:4395] Endo: Monitor glucose FS q 4h Heme/Onc: Anemia Monitor H/H, goal 03/21 Doppler LE: acute R common femoral DVT Transition to Lovenox treatment dose ID: Strep pneumonia Ceftriaxone D4 ABX; complete 7 days therapy Urine Strep Ag + >Antibiotics: Anti-infectives (From admission, onward) Start Dose/Rate Route Frequency Ordered Stop 11/11/24 1030 cefTRIAXone (ROCEPHIN) 1 g in sodium chloride-MBP (NS) 100 mL IVPB-MBP 1 g 200 mL/hr over 30 Minutes Intravenous Every 24 hours 11/11/24 1013 >Recent Cultures: Culture Date Value Ref Range Status 11/10/2024 Negative after 2 days Final 11/10/2024 Sterile after 3 days Preliminary 11/10/2024 Sterile after 3 days Preliminary ICU Checklist Drips: heparin (porcine) IV infusion - thromboembolic/standard/full dose protocol, 15 Units/kg/hr, Last Rate: 17 Units/kg/hr (11/13/24 0800) Lines: Peripheral IV - Single Lumen (Adult) 11/12/24 0837 cephalic vein (lateral side of arm), right 22 gauge;1 in length;3/4 in length (Active) Number of days: 1 Peripheral IV - Single Lumen (Adult) 11/12/24 0837 cephalic vein (lateral side of arm), left 22 gauge;1 in length;3/4 in length (Active) Number of days: 1 Restraints: Restraint Type: Unlocked Unlocked Bilateral Wrist (NV): discontinued Behaviors Observed: pulling at lines/tubes Mobility: Progressive Mobility Level Achieved: Level 0 Tate: Urethral Catheter (Adult) 11/10/24 0629 latex (Active) Number of days: 3 GI Prophylaxis (if needed): PPI VTE Time Out IMPROVE SCORE: 2 (11/10/2024 9:01 AM) Interpretation - High Risk Chemical Prophylaxis heparin (porcine) IV infusion 25,000 units in 500 mL 0.45% NaCl (premix) Intravenous Continuous heparin (porcine) 1000 unit/mL injection 2,800 Units Intravenous Every 6 hours PRN heparin (porcine) 1000 unit/mL injection 1,800 Units Intravenous Every 6 hours PRN Heparin Sodium (Porcine) 5000 Units Last dose 11/11/2024 6:13 AM Mechanical Prophylaxis Code Status and Disposition CODE STATUS: FULL DISPOSITION: ICU--> Floor I spent 32 minutes of Critical Care time in multiple visits throughout the day for collaboration/coordination of care exclusive of time spent performing separately billable medical procedures. I affirm that this patient is critically ill and at high risk for sudden, fatal deterioration due to one or more of the above active issues. I managed/supervised life- or organ-supporting interventions that require frequent physician assessment and reassessment. Critical care time was spent, but not limited to, the review of laboratory test results, medications, relevant radiology and discussing this critically ill patient's care with other medical staff in the unit or at the nursing station ont floor where the patient is located. My full attention was given to the management of this patient and I was immediately available during this same time. Objective SpO2:94 %,O2 Device: room air (none), , Temp Last 24 hrs: Temp Min: 99.1 ??F (37.3 ??C) Max: 100.9 ??F (38.3 ??C) WBC Trend White Blood Cell Count Date Value Ref Range Status 11/12/2024 8.0 4.0 - 11.0 Thou/uL Final 11/11/2024 7.1 4.0 - 11.0 Thou/uL Final 11/11/2024 6.3 4.0 - 11.0 Thou/uL Final 11/11/2024 7.7 4.0 - 11.0 Thou/uL Final Last Vitals: Pulse:92, Resp:(!) 22, BP:BP Min: 114/56 Max: 169/91 MAP: Physical Exam: General: Extubated; A and O x 3 HEENT: supple without LAD Lungs: clear to auscultation bilaterally Chest wall: no tenderness Heart: regular rate and rhythm, S1, S2 normal, no murmur, click, rub or gallop Abdomen: soft, non-tender; bowel sounds normal; no masses, no organomegaly Extremities: atraumatic, no cyanosis or edema Neuro: non focal, awake follows commands Skin: Warm, no rash I reviewed the prescribed Medications and new Laboratory Blood Work I reviewed all new Imaging Studies (actual images) and compared to prior where applicable Sign: Neil Rivera MD 11/13/2024 10:30 AM * MATTHEW HigginbothamEMERGENCY CREW SUPERVISOR - 11/13/2024 10:00 AM EDT Speech Pathology Communication Note EMERGENCY CREW SUPERVISOR consult received and appreciated. Per communication with provider, pt no longer needs a swallowevaluation. EMERGENCY CREW SUPERVISOR will complete order. Sowmya Stoll CCC-LACEY 10:01 AM * Heather Plascencia PA-C - 11/13/2024 6:07 AM EDT Critical Care Progress Note Subjective Overnight events: - extubated last evening to 4L NC, currently satting well on room air Assessment & Plan Assessment 53F hx diabetes, HTN, HFrEF with recently dx EF 25% who presented to [facility] with SOB, suffered cardiac arrest. ROSC achieved after 4 minutes CPR. Intubated and transferred to for furthermanagement. Principal Problem: Cardiac arrest (HCC) LOS: 3 days Plan by system Neuro: no acute issues - mental status: alert and oriented - s/p versed at OSH - s/p propofol gtt - no CT head s/p cardiac arrest, however mental status improved Behavioral/Sedation scales CAM-ICU Delirium Present: Negative Henao Agitation Sedation Scale (RASS) / Modified RASS: 0-->alert and calm Resp: Acute hypoxic respiratory failure, likely aspiration event vs HF exacerbation - SpO2 96% on RA - extubated 11/12 to NC - right lower extremity DVT, no RH strain on echo (AC below in heme) CXR (11/11): 1. Unchanged moderate cardiomegaly and pulmonary venous congestion. 2. Unchanged hypoinflated lungs with Extensive alveolar infiltrates compatible with pulmonary edemadue to congestive heart failure or bronchopneumonia. 3. Interval advancement of endotracheal tube close to sarah. 4. No interval change in position of coiled up enteric tube. CV: PEA cardiac arrest; Prolonged Qtc, Hx of HTN, prior cardiac arrest (Sep 2024) and HFrEF (reported EF < 20%) - HR 90-110s, SBP 120-180s - trop 70 (79) - proBNP 2,385 - EKG: SR with PVCs, QTc 502 - s/p levo and vaso - continue IV lasix 40mg bid for goal neg 1-2L as tolerated - will give IV diuril 250mg - start jardiance 10mg daily - continue home coreg 6.25mg bid - continue aspirin 81mg daily and lipitor 40mg daily - do not resume home norvasc 5mg - should discontinue entirely given EF 25% - cardiology following, ruled out for TTM s/p cardiac arrest Echo (11/10/24): Left ventricular systolic function is severely decreased. The quantitative EF by 2D Zimmerman biplaneis 25%. Right ventricular systolic function is normal. Valve structure and function are normal. There is no previous study for comparison in our system. GI: No acute issues - start regular diet - nutrition consulted - total bili 0.6, AST/ALT 46/54, alk phos 109 - lactic acid 1.3 - continue home pepcid - continue bowel reg, stool output: 1x/24h Abdomen XR (11/10): No acute finding. Renal: ?GILBERTO on CKD, hx CKD - BUN/Cr 38/1.5 (36/1.4), unknown baseline - FeUrea 47.4%, intrinsic renal disease - will order renal ultrasound per cardiology - UOP/24h: 3L - net I/Os: -1.5L/24h, -4.3L LOS - remove tate Tate: yes Tate indication: Strict I/O Intake & Output Intake/Output Summary (Last 24 hours) at 11/13/2024 0607 Last data filed at 11/13/2024 0601 Gross per 24 hour Intake 1537.86 ml Output 2930 ml Net -1392.14 ml Endo: Hx hypothyroidism - FS 110s-160s - continue ISS - hgb a1c 6.0 - TSH 2.76 - continue home synthroid 137 mcg daily - holding home glipizide 10mg and trulicity Heme/Onc: acute on chronic anemia, acute right LE common femoral DVT - H/H 9.3/29.4 (9.1/29.7) - PLT 233 (215) - INR 1.1 - iron 16, TIBC 225, iron sat 7, ferritin 114 - antiXa 0.45 - continue heparin gtt for DVT- switch to therapeutic lovenox ID: Strep PNA - tmax 100.9, WBC 8.0 (7.1) - procal 1.14 - blood cx (11/10): NGTD - MRSA (11/10): negative - viral resp panel (11/10): negative - urine strep/legionella (11/10): +Strep antigen - resp cx (11/10): NGTD - continue ceftriaxone (started with cefepime 11/10, day 4 of antibiotics - plan to complete 7 days) Vascular access: PIV x2 Mobility: Progressive Mobility Level Achieved: Level 0,PT/OT: Yes GI PPx: PPI DVT PPx: heparin drip VTE Risk Assessment VTE Time Out IMPROVE SCORE: 2 (11/10/2024 9:01 AM) Interpretation - High Risk Chemical Prophylaxis heparin (porcine) IV infusion 25,000 units in 500 mL 0.45% NaCl (premix) Intravenous Continuous heparin (porcine) 1000 unit/mL injection 2,800 Units Intravenous Every 6 hours PRN heparin (porcine) 1000 unit/mL injection 1,800 Units Intravenous Every 6 hours PRN Heparin Sodium (Porcine) 5000 Units Last dose 11/11/2024 6:13 AM Mechanical Prophylaxis Drips: heparin (porcine) IV infusion - thromboembolic/standard/full dose protocol, 15 Units/kg/hr, Last Rate: 17 Units/kg/hr (11/13/24 0400) Lines: Peripheral IV - Single Lumen (Adult) 11/12/24 0837 cephalic vein (lateral side of arm), right 22 gauge;1 in length;3/4 in length (Active) Number of days: 1 Peripheral IV - Single Lumen (Adult) 11/12/24 0837 cephalic vein (lateral side of arm), left 22 gauge;1 in length;3/4 in length (Active) Number of days: 1 Enteric Access and Tate: Urethral Catheter (Adult) 11/10/24 0629 latex (Active) Number of days: 3 Restraints: N/a Code: FULL Dispo: Floor per Dr. Rivera Objective Last Vitals: Pulse:92, Resp:18, BP:BP Min: 124/60 Max: 169/91 MAP: SpO2:97 % CVP: Temp Last 24 hrs: Temp Min: 99.1 ??F (37.3 ??C) Max: 100.9 ??F (38.3 ??C) Physical Exam: General appearance: adult female, NAD Lungs: scattered coarse, diminished b/l, on vent Heart: regular rate, regular rhythm, no murmur appreciated Abdomen: +BS, softly distended, NTND Extremities: no pitting edema of BL lower ext Neurologic: awake, nodding yes/no appropriately, following commands in all extremities. Non-focal. Labs: Recent Labs 11/10/24 0642 11/11/24 0001 11/11/24 1124 11/11/24 1243 11/11/24 2343 11/12/24 2350 WBC 13.2* 7.7 -- 6.3 7.1 8.0 HGB 10.5* 9.2* 8.8* 8.5* 9.1* 9.3* HCT 33.7* 29.4* 28.6* 28.1* 29.7* 29.4* PLT 361 193 -- 202 215 233 MCV 85 84 -- 84 84 83 MCH 26.4* 26.1* -- 25.5* 25.8* 26.2* MCHC 31.2 31.3 -- 30.2 30.6 31.6 RDW 14.5 14.8* -- 14.8* 14.9* 14.6* BASOABS 0.04 -- -- 0.01 -- -- Recent Labs 11/10/24 0642 11/10/24 0750 11/10/24 1500 11/10/24 1500 11/11/24 0001 11/11/24 1124 11/11/24 2343 11/12/24 1015 11/12/24 1312 11/12/24 2350 BUN 31* -- 33* -- 33* 33* 35* -- 36* 38* CREAT 1.8* -- 1.8* -- 1.7* 1.6* 1.5* -- 1.4* 1.5* NA 137 -- 137 -- 139 140 140 -- 142 138 K 4.0 -- 4.1 -- 3.8 3.4 3.9 -- 4.3 4.0 CO2 19* 20* 20* 20* -- 22 22 22 24 21* 23 CL 104 -- 104 -- 107 108* 109* -- 108* 104 MG -- -- 1.6 -- 2.1 2.0 2.0 -- 2.0 1.9 PHOS -- -- 4.3 < > 4.7* 3.5 3.1 -- 3.0 3.3 AST 46 -- -- -- 36 -- -- -- -- -- ALT 54* -- -- -- 49 -- -- -- -- -- PROT 7.1 -- -- -- 7.4 -- -- -- -- -- < > = values in this interval not displayed. Recent Labs 11/10/24 1500 11/11/24 1243 PTT -- 37* INR 1.1 1.3 Medications Medication/MAR Report: Medications Scheduled Medication Ordered Dose/Rate, Route, Frequency Last Action aspirin chewable tablet 81 mg 81 mg, PO, Daily Given, 81 mg at 11/12 1023 atorvastatin (LIPITOR) tablet 40 mg 40 mg, PO, Daily Given, 40 mg at 11/12 08 carvedilol (COREG) tablet 6.25 mg 6.25 mg, PO, BID with meals Given, 6.25 mg at 11/12 1651 cefTRIAXone (ROCEPHIN) 1 g in sodium chloride-MBP (NS) 100 mL IVPB-MBP 1 g, IV, Q24H New Bag, 1 g at 11/12 1020 chlorhexidine gluconate 2 % wipes - central line CHG application No Dose/Rate, TOP, Daily Given, 1 each at 11/11 1252 famotidine (PEPCID) tablet 20 mg 20 mg, PO, Daily Given, 20 mg at 11/12 1133 furosemide (LASIX) injection 40 mg 40 mg, IV, BID Given, 40 mg at 11/12 1443 insulin lispro (HumaLOG/ADMELOG) 100 units/mL injection 3-11 Units 3-11 Units, SC, Q4H MILO Given, 5 Units at 11/12 0801 levothyroxine (SYNTHROID, LEVOTHROID) tablet 137 mcg 137 mcg, PO, Daily 6AM Given, 137 mcg at 11/13 0601 magnesium sulfate IVPB 1 g in 100 mL D5W (premix) 1 g, IV, Once New Bag, 1 g at 11/13 600 multivitamin tablet 1 tablet 1 tablet, PO, Daily Ordered senna-docusate (SENNA-S) 8.6-50 MG tablet 2 tablet 2 tablet, PO, Nightly Given, 2 tablet at 11/12 2008 Continuous Medication Ordered Dose/Rate, Route, Frequency Last Action heparin (porcine) IV infusion 25,000 units in 500 mL 0.45% NaCl (premix) 15 Units/kg/hr, IV, Continuous Rate/Dose Verify, 17 Units/kg/hr at 11/14 399 PRN Medication Ordered Dose/Rate, Route, Frequency Last Action acetaminophen (TYLENOL) tablet 650 mg 650 mg, PO, Q6H PRN Given, 650 mg at 11/12 2008 bisacodyl (DULCOLAX) suppository 10 mg 10 mg, RE, Daily PRN Ordered dextrose 50 % solution 12.5 g (Or Linked Group #1) 12.5 g, IV, Q15 Min PRN Ordered dextrose 50 % solution 25 g (Or Linked Group #1) 25 g, IV, Q15 Min PRN Ordered glucagon (GLUCAGEN) injection 1 mg (Or Linked Group #1) 1 mg, IM, Daily PRN Ordered glucose (GLUTOSE 15) 40 % oral gel 37.5 g (Or Linked Group #1) 1 Tube, PO, Q15 Min PRN Ordered glucose (GLUTOSE 15) 40 % oral gel 75 g (Or Linked Group #1) 2 Tube, PO, Q15 Min PRN Ordered heparin (porcine) 1000 unit/mL injection 1,800 Units 20 Units/kg, IV, Q6H PRN Ordered heparin (porcine) 1000 unit/mL injection 2,800 Units 30 Units/kg, IV, Q6H PRN Ordered lactulose (ENULOSE) 10 gm/15 mL solution 20 g 30 mL, PO, Q4H PRN Ordered naloxone (NARCAN) 0.4 mg/mL injection 0.4 mg 0.4 mg, IV, Q5 Min PRN Ordered perflutren lipid microsphere (DEFINITY) 1.3 mL in sodium chloride (NS) 0.9 % 10 mL 0.5-8 mL, IV, Once in imaging Ordered Sign: Heather Plascencia PA-C 11/13/2024 6:07 AM * Aiyana Palacio, RAMIREZ - 11/12/2024 12:21 PM EDT 11/12/24 1217 General Information Admission Type inpatient Arrived From Hospital Initial Information Source of Information family;health record (mother) Designated Caregiver for Discharge Coordination Do You Have a Designated Caregiver for Discharge? no Living Environment People in Home child(calixto), adult Name(s) of People in Home (daughter age 21, son age 24) Current Living Arrangements apartment Primary Care Provided by self Provides Primary Care For no one Family Caregiver if Needed child(calixto), adult;parent(s) Family Caregiver Names kids work, mother lives in same apt complex Able to Return to Prior Arrangements yes Relationship/Environment Primary Source of Support/Comfort child(calixto);parent Resource/Environmental Concerns Resource/Environmental Concerns home accessibility Home Accessibility Concerns stairs to enter home;stairs to access bedroom or bathroom Disability/Function Walking or Climbing Stairs Difficulty no Dressing/Bathing Difficulty no Doing Errands Independently Difficulty (such as shopping) yes Errands Management (mother, son take to appts, grocery shopping) Equipment Currently Used at Home none Functional Status, IADL Medications independent Meal Preparation assistive person Housekeeping assistive person Laundry assistive person Shopping assistive person Housing Stability In the last 12 months, was there a time when you were not able to pay the mortgage or rent on time?Pt Unable In the past 12 months, how many times have you moved where you were living? 0 At any time in the past 12 months, were you homeless or living in a alf (including now)? Pt Unable Food Insecurity Within the past 12 months, you worried that your food would run out before you got the money to buymore. Pt Unable Within the past 12 months, the food you bought just didn't last and you didn't have money to get more. Pt Unable Transportation Needs Do you currently have transportation available to you? Yes If yes, what transportation do you currently have available to you? Family/Friend;Own Vehicle In the past 12 months, has lack of transportation kept you from medical appointments or from getting medications? Pt Unable In the past 12 months, has lack of transportation kept you from meetings, work, or from getting things needed for daily living? Pt Unable Utilities In the past 12 months has the electric, gas, oil, or water company threatened to shut off services in your home? Pt Unable Interpersonal Safety Within the last year, have you been humiliated or emotionally abused in other ways by anyone? Patient unable to answer Within the last year, have you been kicked, hit, slapped, or otherwise physically hurt by anyone? Patient unable to answer Discharge Needs Assessment Readmission Within the Last 30 Days no previous admission in last 30 days Concerns to be Addressed adjustment to diagnosis/illness;discharge planning Current Discharge Risk chronically ill;dependent with mobility/activities of daily living * Nan Dietz MD - 11/12/2024 11:30 AM EDT CARDIOLOGY FELLOWS SERVICE PROGRESS NOTE Date of Consult: 11/12/2024 Patient's Primary Care Physician: No primary care provider on file. Reason for Consultation: s/p arrest ; HFrEF exacerbation Admit Date: 11/10/2024 6:20 AM Assessment & Plan 54-year-old female with a history of obesity, hypothyroidism, CKD, hypertension, hyperlipidemia, and recently diagnosed HFrEF (25%) secondary to a suspected prior PEA cardiac arrest in September 2024 who was transferred from outside hospital following an unresponsive episode, concerning for an another cardiac arrest vs respiratory arrest. Family said patient collapsed in car on arrival to ED; unclear if she had true loss of pulses and what initial rhythm was. Upon transfer to , she was deemed not a candidate for TTM; cardiology have been consulted for further recommendations regarding recent cardiac arrest. Recurrent Collapse - unclear if true loss of pulses or electrical activity; likely respiratory arrest Acute decompensated heart failure History of recently diagnosed HFrEF (25%) History of chest pain prior to initial arrest (Sep 2024) GILBERTO on Chronic Kidney Disease stage 3 Hypertension Hyperlipidemia Hypothyroidism Obesity Diabetes mellitus Likely undiagnosed obstructive sleep apnea Acute R common femoral partial DVT TTE 11/10/2024: Normal LV size, eccentric hypertrophy, severely decreased LV function, global anginal strain is -6.3%, global hypokinesis, normal RV size and function, normal atria, no valvular disease, no pericardial effusion. LVIDD 5.6 cm WNL; LVOT VTI 16.1 cm Troponins have downtrended (79 --> 70). Creatinine improving with diuresis (1.8 --> 1.5) Transferrin 189, ferritin 114, iron sat 7, iron 16, HIV negative Bilateral leg DVT studies negative Although patient does not have evident pitting edema and her JVD is difficult to assess, her elevated BNP, classical history for dyspnea with pulmonary edema, chest x-ray suggesting fluid overload, and suspicion for respiratory arrest suggest that patient likely has acute decompensated heart failure. Especially since she was not taking a diuretic at home. Family also mentioned that patient frequently snores at night and sometimes has apneic episodes briefly-she likely had undiagnosed FRANCISCO as well. Considering these factors, we suspect that her 2 sudden collapses were likely respiratory arrests. Plan - Continue IV Lasix 40 mg twice daily. Pleas stop the PO hydrochlorothiazide and give IV chlorothiazide 250mg daily instead. - Please monitor her urine output strictly - Can hold off on GDMT for now. We can slowly introduce later as patient improves - Please maintain on telemetry. Monitor BMP/mag closely; please aim for K 4< and Mg 2<. - Patient should be initiated on iron supplementation prior to discharge - Per patient's history and report of prior abnormal stress test for fixed ischemia in the mid inferior, basal inferior, and apical inferior haq, patient likely will need further ischemic evaluation - we will need to discuss further whether needs to be inpatient or outpatient. - Please check A1c - If possible, please consider swapping from heparin drip to therapeutic lovenox injections for theDVT Patient seen with Dr. Giraldo. The plan is considered preliminary until co- signed by the attendingphysician. Subjective Background: 54-year-old female with a history of obesity, hypothyroidism, CKD, hypertension, hyperlipidemia, and recently diagnosed HFrEF (25%) secondary to a suspected prior PEA cardiac arrest in September 2024 who was transferred from outside hospital following an unresponsive episode, concerning for an another cardiac arrest vs respiratory arrest. History obtained primarily from chart review and collateral history from patient mother and son by bedside. In September 2024, she went to an outside hospital after she was acutely short of breath and felt like she was going to . Per mother, immediately upon arrival, patient became unresponsive.Had CPR ; chart documentation details PEA arrest secondary to likely respiratory arrest. Patient was diuresed that admission; she was also found to have a new EF of 20-25%. In the chart, she is also noted to have had a nuclear stress test on 09/23 which showed a positive fixed area of ischemia with hypokinesia over the mid inferior, basal inferior, and apical inferior wall. She was discharged on amlodipine 5 mg daily, aspirin 81 mg daily, Lipitor 40 mg daily, Coreg 6.25 mg daily, Trulicity, and levothyroxine 0.137 mg daily. She was not discharged with a diuretic. Patient was planned to have outpatient cardiology appointment (family stated patient had an upcoming appointment at [facility] this week close) and also being planned for future outpatient cath and a Zio patch. However, 11/09 night, patient called her mother around 10 PM saying again that she felt like she could not breathe and was going to . On arrival, mother noted that patient was wheezing significantly and very short of breath. She seemed to also be foaming at the mouth with bubbly sputum. She immediately drove the patient to the outside hospital. However, patient became unresponsive in the parking lot per documentation. Unclear if loss of pulses and what initial rhythm may have been. Seems to have likely been a respiratory arrest-patient quickly achieved ROSC after approximately 4 minutes of CPR. When she was being intubated, vomit was noted in her area intubation. Per documentation, patient was following commands and alert just before intubation. She was transferred to [facility] for CCU evaluation and further care. In our ED, patient febrile 100.6, pulse between 80-90, respiratory rate 16, blood pressure normotensive 119/58. Labs on arrival: Hb 10.5, plts 361, na 137, K 4, cl 104, co2 19, Cr 1.8, ca 8.5, ALT 54, trop 79, probnp 2385, TSH 2.76. Latest ABG pH 7.24, CO2 51, O2 65, bicarb 23. Chest x-ray shows diffuse pulmonary congestion. She was deemed not to be a TTM candidate. Today: Patient CPAPing this morning. RT mentioned no cuff leak yet; team working on extubating her. She remains intubated but is interactive - following commands and communicating with hand movements. Off pressors and restraints. Review of Systems The review of systems was negative, other than that stated above. Objective Past History No past medical history on file. No past surgical history on file. No family history on file. Medications Prior to Admission Medications: Medications Prior to Admission Medication Sig Dispense Refill Last Dose glipiZIDE (GLUCOTROL) 10 MG tablet 1 tablet (10 mg total) by Mouth/Oral Cavity route every 12 hours. sodium bicarbonate 650 MG tablet 1 tablet (650 mg total) by Mouth/Oral Cavity route every 12 hours. amLODIPine (NORVASC) 10 MG tablet Take 1 tablet (10 mg total) by mouth 2 times a day. Aspirin Low Dose 81 MG EC tablet Take 1 tablet (81 mg total) by mouth daily. atorvastatin (LIPITOR) 40 MG tablet Take 1 tablet (40 mg total) by mouth nightly. carvedilol (COREG) 6.25 MG tablet Take 1 tablet (6.25 mg total) by mouth 2 times a day. famotidine (PEPCID) 20 MG tablet Take 1 tablet (20 mg total) by mouth nightly. levothyroxine (SYNTHROID, LEVOTHROID) 137 MCG tablet Take 137 mcg by mouth every morning. lisinopril (PRINIVIL,ZeSTRIL) 40 MG tablet Take 1 tablet (40 mg total) by mouth daily. metFORMIN (GLUCOPHAGE-XR) 500 MG 24 hr tablet Take 2 tablets (1,000 mg total) by mouth 2 times a day. metoPROLOL TARTRATE (LOPRESSOR) 100 MG tablet Take 1 tablet (100 mg total) by mouth 2 times a day. Trulicity 1.5 MG/0.5ML prefilled pen injection Inject 1.5 mg under the skin once a week. Current Medications / MAR: Medications Scheduled Medication Ordered Dose/Rate, Route, Frequency Last Action aspirin chewable tablet 81 mg 81 mg, PO, Daily Given, 81 mg at 11/12 1023 atorvastatin (LIPITOR) tablet 40 mg 40 mg, PO, Daily Given, 40 mg at 11/12 0801 carvedilol (COREG) tablet 6.25 mg 6.25 mg, PO, BID with meals Ordered cefTRIAXone (ROCEPHIN) 1 g in sodium chloride-MBP (NS) 100 mL IVPB-MBP 1 g, IV, Q24H New Bag, 1 g at 11/12 1020 chlorhexidine gluconate 2 % wipes - central line CHG application No Dose/Rate, TOP, Daily Given, 1 each at 11/11 1252 famotidine (PEPCID) tablet 20 mg 20 mg, PO, Daily Ordered furosemide (LASIX) injection 40 mg 40 mg, IV, BID Ordered hydroCHLOROthiazide (HYDRODIURIL) tablet 25 mg 25 mg, PO, Daily Ordered insulin lispro (HumaLOG/ADMELOG) 100 units/mL injection 3-11 Units 3-11 Units, SC, Q4H MILO Given, 5 Units at 11/12 800 lansoprazole (PREVACID SOLUTAB) disintegrating tablet 30 mg 30 mg, PER OG TUBE, Daily Given, 30 mg at 11/12 800 levothyroxine (SYNTHROID, LEVOTHROID) tablet 137 mcg 137 mcg, FT, Daily 6AM Given, 137 mcg at 11/12 0546 multivitamin with minerals (CEROVITE) liquid 15 mL 15 mL, FT, Daily Given, 15 mL at 11/12 08 protein supplement feeding tube flush (PROSOURCE TF) 3 oz 3 oz, FT, BID Given, 3 oz at 11/12 08 senna-docusate (SENNA-S) 8.6-50 MG tablet 2 tablet 2 tablet, PO, Nightly Given, 2 tablet at 11/11 2016 Continuous Medication Ordered Dose/Rate, Route, Frequency Last Action heparin (porcine) IV infusion 25,000 units in 500 mL 0.45% NaCl (premix) 15 Units/kg/hr, IV, Continuous Rate/Dose Verify, 17 Units/kg/hr at 11/12 0900 PRN Medication Ordered Dose/Rate, Route, Frequency Last Action acetaminophen (TYLENOL) tablet 650 mg 650 mg, PO, Q6H PRN Given, 650 mg at 11/11 1817 bisacodyl (DULCOLAX) suppository 10 mg 10 mg, RE, Daily PRN Ordered dextrose 50 % solution 12.5 g (Or Linked Group #1) 12.5 g, IV, Q15 Min PRN Ordered dextrose 50 % solution 25 g (Or Linked Group #1) 25 g, IV, Q15 Min PRN Ordered glucagon (GLUCAGEN) injection 1 mg (Or Linked Group #1) 1 mg, IM, Daily PRN Ordered glucose (GLUTOSE 15) 40 % oral gel 37.5 g (Or Linked Group #1) 1 Tube, PO, Q15 Min PRN Ordered glucose (GLUTOSE 15) 40 % oral gel 75 g (Or Linked Group #1) 2 Tube, PO, Q15 Min PRN Ordered heparin (porcine) 1000 unit/mL injection 1,800 Units 20 Units/kg, IV, Q6H PRN Ordered heparin (porcine) 1000 unit/mL injection 2,800 Units 30 Units/kg, IV, Q6H PRN Ordered HYDROmorphone (DILAUDID) 2 mg/mL injection 1 mg 1 mg, IV, Q2H PRN Given, 1 mg at 11/12 1124 lactulose (ENULOSE) 10 gm/15 mL solution 20 g 30 mL, PO, Q4H PRN Ordered naloxone (NARCAN) 0.4 mg/mL injection 0.4 mg 0.4 mg, IV, Q5 Min PRN Ordered perflutren lipid microsphere (DEFINITY) 1.3 mL in sodium chloride (NS) 0.9 % 10 mL 0.5-8 mL, IV, Once in imaging Ordered Allergies No Known Allergies Vital Signs Pulse:(!) 113,Resp:18,BP:(!) 180/72,SpO2:97 %,Weight:90.5 kg (199 lb 8.3 oz) Temp Last 24 hrs: Temp Min: 99.5 ??F (37.5 ??C) Max: 100.9 ??F (38.3 ??C) Intake/Output Summary (Last 24 hours) at 11/12/2024 1130 Last data filed at 11/12/2024 1025 Gross per 24 hour Intake 2241.57 ml Output 3765 ml Net -1523.43 ml Physical Examination General: Well-developed. Well-nourished. Resting comfortably. Intubated. Obese. HEENT: Normocephalic, atraumatic. PERRLA. EOMI. Mucous membranes moist. Neck: Difficult to assess JVP Cardiovascular: Regular rate. Regular rhythm. No murmrs, gallops, or rubs. Respiratory: Adequate respiratory effort. improved wheezing Abdomen: Soft. Nondistended. Nontender. No rigidity or guarding. Normoactive bowel sounds. Extremities: no sacral or bilateral lower extremity edema. Skin: Warm, dry. Neurologic: Awake. Alert. No gross focal deficits. Moves all four extremities spontaneously. Relevant Data Reviewed: Results from last 7 days Lab Units 11/12/24 1015 11/12/24 0742 11/12/24 0339 11/11/24 2343 11/11/24 1555 11/11/24 1124 11/11/24 0336 11/11/24 0001 11/10/24 0750 11/10/24 0642 SODIUM mmol/L -- -- -- 140 -- 140 -- 139 < > 137 POTASSIUM mmol/L -- -- -- 3.9 -- 3.4 -- 3.8 < > 4.0 CHLORIDE mmol/L -- -- -- 109* -- 108* -- 107 < > 104 CO2 mmol/L -- -- -- 22 -- 22 -- 22 < > 19* CO2, TOTAL mmol/L 24 -- -- -- -- -- -- -- < > -- BUN mg/dL -- -- -- 35* -- 33* -- 33* < > 31* CREATININE mg/dL -- -- -- 1.5* -- 1.6* -- 1.7* < > 1.8* CALCIUM mg/dL -- -- -- 9.2 -- 8.9 -- 8.8 < > 8.5* GLUCOSE mg/dL -- -- -- 144* -- 159* -- 139* < > 217* GLUCOSE, POC mg/dL -- 188* 168* -- < > -- < > -- < > -- EGFR -- -- -- 41* -- 38* -- 36* < > 33* ALBUMIN g/dL -- -- -- -- -- -- -- 3.5 -- 3.4* PROTEIN, TOTAL g/dL -- -- -- -- -- -- -- 7.4 -- 7.1 BILIRUBIN TOTAL mg/dL -- -- -- -- -- -- -- 0.8 -- 0.6 ALK PHOS U/L -- -- -- -- -- -- -- 96 -- 109 ALT U/L -- -- -- -- -- -- -- 49 -- 54* AST U/L -- -- -- -- -- -- -- 36 -- 46 < > = values in this interval not displayed. Lab Results Component Value Date MG 2.0 11/11/2024 Results from last 7 days Lab Units 11/11/24 2343 11/11/24 1243 11/11/24 1124 11/11/24 0001 11/10/24 0642 WHITE BLOOD CELL COUNT Thou/uL 7.1 6.3 -- 7.7 13.2* HEMOGLOBIN g/dL 9.1* 8.5* 8.8* 9.2* 10.5* HEMATOCRIT % 29.7* 28.1* 28.6* 29.4* 33.7* PLATELET COUNT Thou/uL 215 202 -- 193 361 NEUTROS PCT % -- 69.4 -- -- 71.7 LYMPHS PCT % -- 17.9 -- -- 17.6 MONOS PCT % -- 11.7 -- -- 9.5 EOS PCT % -- 0.3 -- -- 0.1 BASOS PCT % -- 0.2 -- -- 0.3 Lab Results Component Value Date HSTNT 70 () 11/10/2024 HSTNT 79 () 11/10/2024 Lab Results Component Value Date PROBNP 2,385 (H) 11/10/2024 No results found for: HGBA1C No results found for: CHOL No results found for: HDL No results found for: LDLCALC Lab Results Component Value Date TRIG 210 (H) 11/10/2024 No results found for: CHOLHDL ECG: TELE: Imaging Studies: Echocardiogram (TTE) Comprehensive (Contrast PRN) Result Date: 11/10/2024 Left ventricular systolic function is severely decreased. The quantitative EF by 2D Zimmerman biplane is 25%. Right ventricular systolic function is normal. Valve structure and function are normal. There is no previous study for comparison in our system. Sign: Nan Dietz MD Internal Medicine PGY-2 [facility] 11/12/2024 11:30 AM Available via [employer] Text 24/03 at [facility] Consult Service * ADDI Muse - 11/12/2024 7:10 AM EDT Critical Care Progress Note Subjective Overnight events: - no acute overnight events - tolerated SBT with PS 8 yesterday, rested on vent overnight. PEEP weaned to 6 Assessment & Plan Assessment 53-year-old female with a history of diabetes, hypertension, HFrEF with recently Dx EF 25% who presented to [facility] with SOB, suffered cardiac arrest. ROSC achieved after 4 minutes CPR. Intubated and transferred to for further management. Principal Problem: Cardiac arrest (HCC) LOS: 2 days Plan by system Neuro: No acute issues - Mental status: Alert and oriented, following commands BL, writing on clipboard - continue dilaudid 1mg IV q2h PRN - s/p versed at OSH - s/p propofol gtt - No CT head s/p cardiac arrest however mental status improved Behavioral/Sedation scales CAM-ICU Delirium Present: Negative Henao Agitation Sedation Scale (RASS) / Modified RASS: 0-->alert and calm Resp: Acute hypoxic respiratory failure, likely aspiration event vs HF exacerbation - SpO2 93-98% on PC-AC rate 18, PS 26, FiO2 40%, PEEP 6 - plan to place back on SPN minimals this AM and ZEEP - ABG 7.33/37/82/20, repeat on ZEEP - pt does have lower ext DVT, no RH strain on echo. Continue heparin gtt - continue diuresis as per CV section CXR 11/11: 1. Unchanged moderate cardiomegaly and pulmonary venous congestion. 2. Unchanged hypoinflated lungs with Extensive alveolar infiltrates compatible with pulmonary edema due to congestive heart failure or bronchopneumonia. 3. Interval advancement of endotracheal tube close to sarah. 4. No interval change in position of coiled up enteric tube. Current Ventilator/Noninvasive Ventilator/Oxygen Settings Ventilation Mode (Drager V500): PC-AC Rate Set (breaths/min) (Drager V500): 18 Pressure Set (cmH2O): 26 Oxygen Concentration (%) (Drager V500): 40 PEEP (cmH2O) (Drager V500): (S) 6 (weaned per spo2/fio2) CV: PEA cardiac arrest; Prolonged Qtc. Hx of HTN, prior cardiac arrest (Sep 2024) and HFrEF (reported EF < 20%) - SBP 110s-140s, HR 80s-110s - HST 70 (79), proBNP 2,385 - MvO2: 91.1, indicating distributive shock - ECG 11/10: sinus rhythm with PVCs, Qtc 535 - s/p levo and vaso - continue lasix 40 mg IV BID for goal negative -1-2L as tolerated - s/p diuril 500 mg IV x1 - unhold home coreg 6.25 mg BID - continue to hold norvasc 5 mg daily for now - continue atorvastatin 40 mg daily - unhold ASA 81 mg daily - Ruled out for TTM s/p cardiac arrest - Cardiology following, appreciate recommendations Echo (11/10/24): Left ventricular systolic function is severely decreased. The quantitative EF by 2D Zimmerman biplaneis 25%. Right ventricular systolic function is normal. Valve structure and function are normal. There is no previous study for comparison in our system. Hemodynamic Parameters GI: No acute issues - continue osmolite at goal rate 35 ml/hr, will hold this AM for potential extubation - Nutrition consulted - Total bili 0.6, AST/ALT 46/54, alk phos 109 - Lactic acid 1.3 - continue PPI - continue bowel regimen Abdomen XR (11/10): No acute finding. Renal: ? GILBERTO on CKD. Hx CKD - BUN/Cr 35/1.5 (33/1.6) unclear what baseline Cr is - lytes ok - FeUrea 47.4 % suggests intrinsic renal disease - diuresis as above - monitor chemistry - UOP 3.3L 24h, I/O -1.4L/24h, -2.8L LOS Tate: yes Tate indication: Strict I/O Intake & Output Intake/Output Summary (Last 24 hours) at 11/12/2024 0710 Last data filed at 11/12/2024 0600 Gross per 24 hour Intake 1937.63 ml Output 3365 ml Net -1427.37 ml Endo: Hx of hypothyroidism - FS 140s-170s - continue MIRYAM - Hold home glipizide 10mg, trulicity - TSH 2.76 - continue home synthroid 137 mcg daily Heme/Onc: Anemia, acute R lower ext DVT - H/H 9.1/29.7 (8.5/28.1) - Plt 215 (193) - INR 1.1 - iron 16, TIBC 225, iron sat 7 - ferritin 114 - anti xa 0.38 - continue heparin gtt for DVT ID: Strep PNA - Tmax 100.9 - WBC 7.1 (6.3) - Procal 1.14 - Bcx x2 in process - MRSA negative - viral PCR negative - strep antigen presumed positive - legionella antigen presumed negative - resp cx ordered - continue ceftriaxone Vascular access: PIV x2 and femoral central line, remove central line today Mobility: Progressive Mobility Level Achieved: Level 0,PT/OT: Yes GI PPx: PPI DVT PPx: heparin drip VTE Risk Assessment VTE Time Out IMPROVE SCORE: 2 (11/10/2024 9:01 AM) Interpretation - High Risk Chemical Prophylaxis heparin (porcine) IV infusion 25,000 units in 500 mL 0.45% NaCl (premix) Intravenous Continuous heparin (porcine) 1000 unit/mL injection 2,800 Units Intravenous Every 6 hours PRN heparin (porcine) 1000 unit/mL injection 1,800 Units Intravenous Every 6 hours PRN Heparin Sodium (Porcine) 5000 Units Last dose 11/11/2024 6:13 AM Mechanical Prophylaxis SCDs are ordered - Bilateral (Knee High) Drips: heparin (porcine) IV infusion - thromboembolic/standard/full dose protocol, 15 Units/kg/hr, Last Rate: 17 Units/kg/hr (11/12/24 0600) Lines: Triple Lumen Infusion Catheter 11/10/24 0629 femoral vein, right (Active) Number of days: 2 Peripheral IV - Single Lumen (Adult) 11/10/24 0629 median cubital vein (antecubital fossa), right 18 gauge (Active) Number of days: 2 Peripheral IV - Single Lumen (Adult) 11/10/24 0629 median cubital vein (antecubital fossa), left 18gauge (Active) Number of days: 2 Enteric Access and Tate: Naso/Orogastric Tube (Adult) orogastric mouth, center (Active) Number of days: Urethral Catheter (Adult) 11/10/24 0629 latex (Active) Number of days: 2 Restraints: soft bilateral wrist Interference with medical treatment and Risk for self injury Code: FULL Dispo: ICU, per Dr. Ames Objective Last Vitals: Pulse:(!) 105, Resp:18, BP:BP Min: 119/55 Max: 147/68 MAP: SpO2:94 % CVP: Temp Last 24 hrs: Temp Min: 99.5 ??F (37.5 ??C) Max: 100.9 ??F (38.3 ??C) Physical Exam: General appearance: adult female resting in bed on vent, no acute distress Lungs: scattered course, diminished b/l, on vent Heart: tachycardic, regular rhythm, no murmur appreciated Abdomen: +BS, softly distended, NTND Extremities: no pitting edema of BL lower ext Neurologic: awake, nodding yes/no appropriately, following commands in all extremities. Non-focal. Labs: Recent Labs 11/10/24 0642 11/11/24 0001 11/11/24 1124 11/11/24 1243 11/11/24 2343 WBC 13.2* 7.7 -- 6.3 7.1 HGB 10.5* 9.2* 8.8* 8.5* 9.1* HCT 33.7* 29.4* 28.6* 28.1* 29.7* PLT 361 193 -- 202 215 MCV 85 84 -- 84 84 MCH 26.4* 26.1* -- 25.5* 25.8* MCHC 31.2 31.3 -- 30.2 30.6 RDW 14.5 14.8* -- 14.8* 14.9* BASOABS 0.04 -- -- 0.01 -- Recent Labs 11/10/24 0642 11/10/24 0750 11/10/24 1500 11/10/24 1500 11/11/24 0001 11/11/24 1124 11/11/24 2343 BUN 31* -- 33* -- 33* 33* 35* CREAT 1.8* -- 1.8* -- 1.7* 1.6* 1.5* NA 137 -- 137 -- 139 140 140 K 4.0 -- 4.1 -- 3.8 3.4 3.9 CO2 19* 20* 20* 20* -- 22 22 22 CL 104 -- 104 -- 107 108* 109* MG -- -- 1.6 -- 2.1 2.0 2.0 PHOS -- -- 4.3 < > 4.7* 3.5 3.1 AST 46 -- -- -- 36 -- -- ALT 54* -- -- -- 49 -- -- PROT 7.1 -- -- -- 7.4 -- -- < > = values in this interval not displayed. Recent Labs 11/10/24 1500 11/11/24 1243 PTT -- 37* INR 1.1 1.3 Medications Medication/MAR Report: Medications Scheduled Medication Ordered Dose/Rate, Route, Frequency Last Action [Provider Held] aspirin chewable tablet 81 mg On hold since yesterday at 1158 until manually unheld; held by Clemente Muse Reason: Other - Comment requiredHold Comments: Starting heparindrip, anemia On hold since yesterday at 1158 until manually unheld Hold reason: Other - Comment required, Hold comment: Starting heparin drip, anemia 81 mg, PO, Daily Ordered atorvastatin (LIPITOR) tablet 40 mg 40 mg, PO, Daily Ordered cefTRIAXone (ROCEPHIN) 1 g in sodium chloride-MBP (NS) 100 mL IVPB-MBP 1 g, IV, Q24H New Bag, 1 g at 11/11 1147 chlorhexidine gluconate 2 % wipes - central line CHG application No Dose/Rate, TOP, Daily Given, 1 each at 11/11 1252 ferrous sulfate 300 mg/5 mL oral solution 300 mg 300 mg, PO, Daily Given, 300 mg at 11/11 1518 furosemide (LASIX) injection 40 mg 40 mg, IV, BID Given, 40 mg at 11/11 1642 insulin lispro (HumaLOG/ADMELOG) 100 units/mL injection 3-11 Units 3-11 Units, SC, Q4H MILO Given, 4 Units at 11/12 0343 lansoprazole (PREVACID SOLUTAB) disintegrating tablet 30 mg 30 mg, PER OG TUBE, Daily Given, 30 mg at 11/11 1141 levothyroxine (SYNTHROID, LEVOTHROID) tablet 137 mcg 137 mcg, FT, Daily 6AM Given, 137 mcg at 11/12 0546 multivitamin with minerals (CEROVITE) liquid 15 mL 15 mL, FT, Daily Given, 15 mL at 11/11 0758 protein supplement feeding tube flush (PROSOURCE TF) 3 oz 3 oz, FT, BID Given, 3 oz at 11/11 2017 senna-docusate (SENNA-S) 8.6-50 MG tablet 2 tablet 2 tablet, PO, Nightly Given, 2 tablet at 11/11 2016 Continuous Medication Ordered Dose/Rate, Route, Frequency Last Action heparin (porcine) IV infusion 25,000 units in 500 mL 0.45% NaCl (premix) 15 Units/kg/hr, IV, Continuous Rate/Dose Verify, 17 Units/kg/hr at 11/12 0600 PRN Medication Ordered Dose/Rate, Route, Frequency Last Action acetaminophen (TYLENOL) tablet 650 mg 650 mg, PO, Q6H PRN Given, 650 mg at 11/11 1818 bisacodyl (DULCOLAX) suppository 10 mg 10 mg, RE, Daily PRN Ordered dextrose 50 % solution 12.5 g (Or Linked Group #1) 12.5 g, IV, Q15 Min PRN Ordered dextrose 50 % solution 25 g (Or Linked Group #1) 25 g, IV, Q15 Min PRN Ordered glucagon (GLUCAGEN) injection 1 mg (Or Linked Group #1) 1 mg, IM, Daily PRN Ordered glucose (GLUTOSE 15) 40 % oral gel 37.5 g (Or Linked Group #1) 1 Tube, PO, Q15 Min PRN Ordered glucose (GLUTOSE 15) 40 % oral gel 75 g (Or Linked Group #1) 2 Tube, PO, Q15 Min PRN Ordered heparin (porcine) 1000 unit/mL injection 1,800 Units 20 Units/kg, IV, Q6H PRN Ordered heparin (porcine) 1000 unit/mL injection 2,800 Units 30 Units/kg, IV, Q6H PRN Ordered HYDROmorphone (DILAUDID) 2 mg/mL injection 1 mg 1 mg, IV, Q2H PRN Given, 1 mg at 11/12 0502 lactulose (ENULOSE) 10 gm/15 mL solution 20 g 30 mL, PO, Q4H PRN Ordered naloxone (NARCAN) 0.4 mg/mL injection 0.4 mg 0.4 mg, IV, Q5 Min PRN Ordered perflutren lipid microsphere (DEFINITY) 1.3 mL in sodium chloride (NS) 0.9 % 10 mL 0.5-8 mL, IV, Once in imaging Ordered Sign: ADDI Flores 11/12/2024 7:10 AM * Cesilia Ames MD - 11/12/2024 6:02 AM EDT Images from the original note were not included. Critical Care Progress Note Assessment 54 y.o. female with history of obesity, hypothyroidism, CKD, HFrEF who presented with cardiac arrest. The patient is critically ill/injured and/or remains at high risk for life threatening complications requiring critical care management given the following acute conditions and comorbid processes Active Problems: Cardiac arrest-not a TTM candidate Shock likely cardiogenic -resolved Acute hypoxemic respiratory failure Strept pneumo PNA Acute on possibly chronic HFrEF Acute cardiogenic pulmonary edema NSTEMI type II, demand GILBERTO on CKD3 Acute metabolic encephalopathy Anemia Acute right common femoral DVT Comorbid Conditions: Obesity Hypothyroidism Possible HFrEF Hypertension, hyperlipidemia Diabetes CKD3 Total LOS: 2 days Overnight Weaned down to peep 6 No events o/n Awake HPI At She arrived afebrile BP 129/77 on levophed at 26, satting 100% on PC/AC 100% FiO2. Labs notable for WBC 13.2, H/H 10.5/33.7, BUN/Cr 31/1.8, CO2 19, lactate 1.3, Troponin 79, proBNP 2385, procalcitonin 1.14, VBG 7.30/38. CXR showed bilateral infiltrates and superior mediastinal prominence. Plan by System I performed rounds on the medical unit with the entire critical care team and we discussed the events below while developing the daily treatment plan: Neuro: CAM-ICU Delirium Present: Negative Henao Agitation Sedation Scale (RASS) / Modified RASS: 0-->alert and calm Acute metabolic encephalopathy S/p arrest Awake and O , follows commands Off propofol Dilaudid PRN Can hold off CT head as she is following commands Was Not a TTM candidate Resp: Ventilator Start 11/10/24 0657 (Active) Number of days: 2 Ventilation Mode (Drager V500): PC-AC Rate Set (breaths/min) (Drager V500): 18 Pressure Set (cmH2O): 26 Oxygen Concentration (%) (Drager V500): 40 PEEP (cmH2O) (Drager V500): (S) 6 (weaned per spo2/fio2) Acute hypoxemic respiratory failure Acute cardiogenic pulmonary edema Acute on chronic heart failure reduced EF Possible aspiration pneumonia flash pulmonary edema PE not likely considering the normal RV function on echo Ventilate with tidal volume 6cc/kg ideal body weight, maintain plateau pressure less than 30 and driving pressure less than 15 Wean FiO2 as able Target pO2 60 Zpeep trial today after effective diuresis 7.33/ CV: Shock, likely cardiogenic and septic-resolved NSTEMI type II, demand Acute on chronic HFrEF with EF 25% EKG nonischemic Trend troponin Off Levophed, goal MAP > 65 Off vaso coreg Lasix 40 mg bid IV and Diuril 500 mg PRN Cont statin Card following: Appreciate input ASA Keep K> 4 and Mg> 2 Keep O>I - 2 L Elevated proBNP Trop decreasing Lactic acid 1.3 I/O 1.3 L -2.6 L for LOS >Echo: 11/10 Left ventricular systolic function is severely decreased. The quantitative EF by 2D Zimmerman biplaneis 25%. Right ventricular systolic function is normal. Valve structure and function are normal. There is no previous study for comparison in our system. GI: Cont tube feeds Bowel regimen LFT PPI >Nutrition: Diet/Nutrition Received: NPO, tube feeding Diet, Tube Feeding, No Tray Continuous; OG Tube; Osmolite 1.5; 10 mL; 35 mL/hr; 10; q3h; Water; Every 4 hours; 30 cc; NPO Renal: GILBERTO on CKD-unknown baseline -improving Monitor electrolytes Diuresis as above Keep K more than 4 and mag more than [address] Feurea 47% Lasix 40 mg bid IV and diuril Keep O>I 2 L CKD3 >Intake & Output Intake/Output Summary (Last 24 hours) at 11/12/2024 0602 Last data filed at 11/12/2024 0500 Gross per 24 hour Intake 1881.32 ml Output 3310 ml Net -1428.68 ml I/O last 3 completed shifts: In: 2785.9 [P.O.:90; I.V.:637.9; NG/GT:850; IV Piggyback:1208] Out: 5200 [Urine:5200] Endo: Monitor fglucose FS q 4h TSH 2.7 Home synthroid Heme/Onc: Anemia Monitor H/H, goal 03/21 No evidence of bleeding INR 1.1 Doppler LE: acute R common femoral DVT Cont heparin gtt ID: Strept pneumonia Ceftriaxone Urine Strep Ag + Pro CT 1.14 Viral PCR neg Sputum NF PT and OT PPI Heparin gtt >Antibiotics: Anti-infectives (From admission, onward) Start Dose/Rate Route Frequency Ordered Stop 11/11/24 1030 cefTRIAXone (ROCEPHIN) 1 g in sodium chloride-MBP (NS) 100 mL IVPB-MBP 1 g 200 mL/hr over 30 Minutes Intravenous Every 24 hours 11/11/24 1013 >Recent Cultures: Culture Date Value Ref Range Status 11/10/2024 Negative <24 hours Preliminary 11/10/2024 Sterile after 1 day Preliminary 11/10/2024 Sterile after 1 day Preliminary ICU Checklist Drips: heparin (porcine) IV infusion - thromboembolic/standard/full dose protocol, 15 Units/kg/hr, Last Rate: 17 Units/kg/hr (11/12/24 0500) Lines: Triple Lumen Infusion Catheter 11/10/24 0629 femoral vein, right (Active) Number of days: 2 Peripheral IV - Single Lumen (Adult) 11/10/24 0629 median cubital vein (antecubital fossa), right 18 gauge (Active) Number of days: 2 Peripheral IV - Single Lumen (Adult) 11/10/24 0629 median cubital vein (antecubital fossa), left 18gauge (Active) Number of days: 2 Restraints: Restraint Type: Unlocked Unlocked Bilateral Wrist (NV): discontinued Behaviors Observed: pulling at lines/tubes Mobility: Progressive Mobility Level Achieved: Level 0 Tate: Urethral Catheter (Adult) 11/10/24 0629 latex (Active) Number of days: 2 GI Prophylaxis (if needed): PPI VTE Time Out IMPROVE SCORE: 2 (11/10/2024 9:01 AM) Interpretation - High Risk Chemical Prophylaxis heparin (porcine) IV infusion 25,000 units in 500 mL 0.45% NaCl (premix) Intravenous Continuous heparin (porcine) 1000 unit/mL injection 2,800 Units Intravenous Every 6 hours PRN heparin (porcine) 1000 unit/mL injection 1,800 Units Intravenous Every 6 hours PRN Heparin Sodium (Porcine) 5000 Units Last dose 11/11/2024 6:13 AM Mechanical Prophylaxis SCDs are ordered - Bilateral (Knee High) Code Status and Disposition CODE STATUS: FULL DISPOSITION: ICU I spent 32 minutes of Critical Care time in multiple visits throughout the day for collaboration/coordination of care exclusive of time spent performing separately billable medical procedures. I affirm that this patient is critically ill and at high risk for sudden, fatal deterioration due to one or more of the above active issues. I managed/supervised life- or organ-supporting interventions that require frequent physician assessment and reassessment. Critical care time was spent, but not limited to, the review of laboratory test results, medications, relevant radiology and discussing this critically ill patient's care with other medical staff in the unit or at the nursing station [facility] floor where the patient is located. My full attention was given to the management of this patient and I was immediately available during this same time. Objective SpO2:96 %,O2 Device: ventilator, , Oxygen Concentration (%) (Drager V500): 40 Temp Last 24 hrs: Temp Min: 99.5 ??F (37.5 ??C) Max: 100.9 ??F (38.3 ??C) WBC Trend White Blood Cell Count Date Value Ref Range Status 11/11/2024 7.1 4.0 - 11.0 Thou/uL Final 11/11/2024 6.3 4.0 - 11.0 Thou/uL Final 11/11/2024 7.7 4.0 - 11.0 Thou/uL Final 11/10/2024 13.2 (H) 4.0 - 11.0 Thou/uL Final Last Vitals: Pulse:(!) 101, Resp:(!) 23, BP:BP Min: 119/55 Max: 147/68 MAP: Physical Exam: General: Intubated HEENT: supple without LAD Lungs: clear to auscultation bilaterally Chest wall: no tenderness Heart: regular rate and rhythm, S1, S2 normal, no murmur, click, rub or gallop Abdomen: soft, non-tender; bowel sounds normal; no masses, no organomegaly Extremities: atraumatic, no cyanosis or edema Neuro: non focal, awake follows commands Skin: Warm, no rash I reviewed the prescribed Medications and new Laboratory Blood Work I reviewed all new Imaging Studies (actual images) and compared to prior where applicable Sign: Cesilia Ames MD 11/12/2024 6:02 AM * Nan Dietz MD - 11/11/2024 7:58 AM EDT CARDIOLOGY FELLOWS SERVICE PROGRESS NOTE Date of Consult: 11/11/2024 Patient's Primary Care Physician: No primary care provider on file. Reason for Consultation: s/p arrest ; HFrEF exacerbation Admit Date: 11/10/2024 6:20 AM Assessment & Plan 54-year-old female with a history of obesity, hypothyroidism, CKD, hypertension, hyperlipidemia, and recently diagnosed HFrEF (25%) secondary to a suspected prior PEA cardiac arrest in September 2024 who was transferred from outside hospital following an unresponsive episode, concerning for an another cardiac arrest vs respiratory arrest. Family said patient collapsed in car on arrival to ED; unclear if she had true loss of pulses and what initial rhythm was. Upon transfer to , she was deemed not a candidate for TTM; cardiology have been consulted for further recommendations regarding recent cardiac arrest. Recurrent Collapse - unclear if true loss of pulses or electrical activity; likely respiratory arrest Acute decompensated heart failure History of recently diagnosed HFrEF (25%) History of chest pain prior to initial arrest (Sep 2024) Chronic Kidney Disease stage 3 Hypertension Hyperlipidemia Hypothyroidism Obesity Diabetes mellitus Likely undiagnosed obstructive sleep apnea TTE 11/10/2024: Normal LV size, eccentric hypertrophy, severely decreased LV function, global anginal strain is -6.3%, global hypokinesis, normal RV size and function, normal atria, no valvular disease, no pericardial effusion. LVIDD 5.6 cm WNL; LVOT VTI 16.1 cm Troponins have downtrended (79 --> 70). Creatinine improved with diuresis (1.8 --> 1.7) ; likely has GILBERTO on CKD Although patient does not have evident pitting edema and her JVD is difficult to assess, her elevated BNP, classical history for dyspnea with pulmonary edema, chest x-ray suggesting fluid overload, and suspicion for respiratory arrest suggest that patient likely has acute decompensated heart failure. Especially since she was not taking a diuretic at home. Family also mentioned that patient frequently snores at night and sometimes has apneic episodes briefly-she likely had undiagnosed FRANCISCO as well. Considering these factors, we suspect that her 2 sudden collapses were likely respiratory arrests. Plan - Continue IV Lasix 40 mg twice daily. We would recommend also adding hydrochlorothiazide 25mg oncedaily as well to optimize diuresis - Please monitor her urine output strictly - Can hold off on GDMT for now. We can slowly introduce later as patient improves - Given recent diagnosis of HFrEF, would advise checking iron, transferrin, ferritin, HIV, hepatitis B and C as part of new reduced heart failure workup - Please maintain on telemetry. Monitor BMP/mag closely; please aim for K 4< and Mg 2<. - Please follow-up bilateral DVT leg studies. - Per patient's history and report of prior abnormal stress test for fixed ischemia in the mid inferior, basal inferior, and apical inferior haq, patient likely will need further ischemic evaluation - we will need to discuss further whether needs to be inpatient or outpatient. - Please check A1c Patient seen with Dr. Giraldo. The plan is considered preliminary until co- signed by the attendingphysician. Subjective Background: 54-year-old female with a history of obesity, hypothyroidism, CKD, hypertension, hyperlipidemia, and recently diagnosed HFrEF (25%) secondary to a suspected prior PEA cardiac arrest in September 2024 who was transferred from outside hospital following an unresponsive episode, concerning for an another cardiac arrest vs respiratory arrest. History obtained primarily from chart review and collateral history from patient mother and son by bedside. In September 2024, she went to an outside hospital after she was acutely short of breath and felt like she was going to . Per mother, immediately upon arrival, patient became unresponsive.Had CPR ; chart documentation details PEA arrest secondary to likely respiratory arrest. Patient was diuresed that admission; she was also found to have a new EF of 20-25%. In the chart, she is also noted to have had a nuclear stress test on 09/23 which showed a positive fixed area of ischemia with hypokinesia over the mid inferior, basal inferior, and apical inferior wall. She was discharged on amlodipine 5 mg daily, aspirin 81 mg daily, Lipitor 40 mg daily, Coreg 6.25 mg daily, Trulicity, and levothyroxine 0.137 mg daily. She was not discharged with a diuretic. Patient was planned to have outpatient cardiology appointment (family stated patient had an upcoming appointment at [facility] this week close) and also being planned for future outpatient cath and a Zio patch. However, 11/09 night, patient called her mother around 10 PM saying again that she felt like she could not breathe and was going to . On arrival, mother noted that patient was wheezing significantly and very short of breath. She seemed to also be foaming at the mouth with bubbly sputum. She immediately drove the patient to the outside hospital. However, patient became unresponsive in the parking lot per documentation. Unclear if loss of pulses and what initial rhythm may have been. Seems to have likely been a respiratory arrest-patient quickly achieved ROSC after approximately 4 minutes of CPR. When she was being intubated, vomit was noted in her area intubation. Per documentation, patient was following commands and alert just before intubation. She was transferred to [facility] for CCU evaluation and further care. In our ED, patient febrile 100.6, pulse between 80-90, respiratory rate 16, blood pressure normotensive 119/58. Labs on arrival: Hb 10.5, plts 361, na 137, K 4, cl 104, co2 19, Cr 1.8, ca 8.5, ALT 54, trop 79, probnp 2385, TSH 2.76. Latest ABG pH 7.24, CO2 51, O2 65, bicarb 23. Chest x-ray shows diffuse pulmonary congestion. She was deemed not to be a TTM candidate. Today: Patient was unable to be weaned off ventilator last night due to desatting. She remains intubated but is interactive - following commands and communicating with hand movements. Off pressors but has high PEEP (10) to help with pulmonary congestion. Review of Systems The review of systems was negative, other than that stated above. Objective Past History No past medical history on file. No past surgical history on file. No family history on file. Medications Prior to Admission Medications: Medications Prior to Admission Medication Sig Dispense Refill Last Dose glipiZIDE (GLUCOTROL) 10 MG tablet 1 tablet (10 mg total) by Mouth/Oral Cavity route every 12 hours. sodium bicarbonate 650 MG tablet 1 tablet (650 mg total) by Mouth/Oral Cavity route every 12 hours. amLODIPine (NORVASC) 10 MG tablet Take 1 tablet (10 mg total) by mouth 2 times a day. Aspirin Low Dose 81 MG EC tablet Take 1 tablet (81 mg total) by mouth daily. atorvastatin (LIPITOR) 40 MG tablet Take 1 tablet (40 mg total) by mouth nightly. carvedilol (COREG) 6.25 MG tablet Take 1 tablet (6.25 mg total) by mouth 2 times a day. famotidine (PEPCID) 20 MG tablet Take 1 tablet (20 mg total) by mouth nightly. levothyroxine (SYNTHROID, LEVOTHROID) 137 MCG tablet Take 137 mcg by mouth every morning. lisinopril (PRINIVIL,ZeSTRIL) 40 MG tablet Take 1 tablet (40 mg total) by mouth daily. metFORMIN (GLUCOPHAGE-XR) 500 MG 24 hr tablet Take 2 tablets (1,000 mg total) by mouth 2 times a day. metoPROLOL TARTRATE (LOPRESSOR) 100 MG tablet Take 1 tablet (100 mg total) by mouth 2 times a day. Trulicity 1.5 MG/0.5ML prefilled pen injection Inject 1.5 mg under the skin once a week. Current Medications / MAR: Medications Scheduled Medication Ordered Dose/Rate, Route, Frequency Last Action cefepime (MAXIPIME) 2 g in sodium chloride-MBP (NS) 100 mL IVPB-MBP 2 g, IV, Q12H New Bag, 2 g at 11/11 075 chlorhexidine gluconate 2 % wipes - central line CHG application No Dose/Rate, TOP, Daily Ordered doxycycline (VIBRAMYCIN) 100 mg in sodium chloride-MBP (NS) 100 mL IVPB-MBP 100 mg, IV, Q12H New Bag, 100 mg at 11/11 442 famotidine (PEPCID) tablet 20 mg 20 mg, FT, Nightly Ordered furosemide (LASIX) injection 40 mg 40 mg, IV, BID Ordered heparin (porcine) 5000 unit/mL injection 5,000 Units 5,000 Units, SC, Q8H MILO Given, 5,000 Units at 11/11 06 insulin lispro (HumaLOG/ADMELOG) 100 units/mL injection 3-11 Units 3-11 Units, SC, Q4H MILO Given, 4 Units at 11/11 442 levothyroxine (SYNTHROID, LEVOTHROID) tablet 137 mcg 137 mcg, FT, Daily 6AM Ordered multivitamin with minerals (CEROVITE) liquid 15 mL 15 mL, FT, Daily Given, 15 mL at 11/11 757 protein supplement feeding tube flush (PROSOURCE TF) 3 oz 3 oz, FT, BID Given, 3 oz at 11/10 2104 senna-docusate (SENNA-S) 8.6-50 MG tablet 2 tablet 2 tablet, PO, Nightly Given, 2 tablet at 11/10 2104 PRN Medication Ordered Dose/Rate, Route, Frequency Last Action acetaminophen (TYLENOL) tablet 650 mg 650 mg, PO, Q6H PRN Given, 650 mg at 11/11 0753 bisacodyl (DULCOLAX) suppository 10 mg 10 mg, RE, Daily PRN Ordered dextrose 50 % solution 12.5 g (Or Linked Group #1) 12.5 g, IV, Q15 Min PRN Ordered dextrose 50 % solution 25 g (Or Linked Group #1) 25 g, IV, Q15 Min PRN Ordered glucagon (GLUCAGEN) injection 1 mg (Or Linked Group #1) 1 mg, IM, Daily PRN Ordered glucose (GLUTOSE 15) 40 % oral gel 37.5 g (Or Linked Group #1) 1 Tube, PO, Q15 Min PRN Ordered glucose (GLUTOSE 15) 40 % oral gel 75 g (Or Linked Group #1) 2 Tube, PO, Q15 Min PRN Ordered HYDROmorphone (DILAUDID) 2 mg/mL injection 1 mg 1 mg, IV, Q2H PRN Given, 1 mg at 11/11 0751 lactulose (ENULOSE) 10 gm/15 mL solution 20 g 30 mL, PO, Q4H PRN Ordered naloxone (NARCAN) 0.4 mg/mL injection 0.4 mg 0.4 mg, IV, Q5 Min PRN Ordered perflutren lipid microsphere (DEFINITY) 1.3 mL in sodium chloride (NS) 0.9 % 10 mL 0.5-8 mL, IV, Once in imaging Ordered Allergies No Known Allergies Vital Signs Pulse:(!) 105,Resp:19,BP:134/67,SpO2:100 %,Weight:92.1 kg (203 lb 0.7 oz) Temp Last 24 hrs: Temp Min: 99.9 ??F (37.7 ??C) Max: 101.3 ??F (38.5 ??C) Intake/Output Summary (Last 24 hours) at 11/11/2024 0758 Last data filed at 11/11/2024 0752 Gross per 24 hour Intake 1898.93 ml Output 3200 ml Net -1301.07 ml Physical Examination General: Well-developed. Well-nourished. Resting comfortably. Intubated. Obese. HEENT: Normocephalic, atraumatic. PERRLA. EOMI. Mucous membranes moist. Neck: Difficult to assess JVP Cardiovascular: Regular rate. Regular rhythm. No murmrs, gallops, or rubs. Respiratory: Adequate respiratory effort. Has wheezing, likely cardiac wheeze. Abdomen: Soft. Nondistended. Nontender. No rigidity or guarding. Normoactive bowel sounds. Extremities: no sacral or bilateral lower extremity edema. Skin: Warm, dry. Neurologic: Awake. Alert. No gross focal deficits. Moves all four extremities spontaneously. Relevant Data Reviewed: Results from last 7 days Lab Units 11/11/24 0711 11/11/24 0336 11/11/24 0001 11/10/24 1542 11/10/24 1500 11/10/24 0750 11/10/24 0642 SODIUM mmol/L -- -- 139 -- 137 -- 137 POTASSIUM mmol/L -- -- 3.8 -- 4.1 -- 4.0 CHLORIDE mmol/L -- -- 107 -- 104 -- 104 CO2 mmol/L -- -- 22 -- 20* -- 19* CO2, TOTAL mmol/L -- -- -- -- 20* < > -- BUN mg/dL -- -- 33* -- 33* -- 31* CREATININE mg/dL -- -- 1.7* -- 1.8* -- 1.8* CALCIUM mg/dL -- -- 8.8 -- 8.4* -- 8.5* GLUCOSE mg/dL -- -- 139* -- 154* -- 217* GLUCOSE, POC mg/dL 143* 162* -- < > -- < > -- EGFR -- -- 36* -- 33* -- 33* ALBUMIN g/dL -- -- 3.5 -- -- -- 3.4* PROTEIN, TOTAL g/dL -- -- 7.4 -- -- -- 7.1 BILIRUBIN TOTAL mg/dL -- -- 0.8 -- -- -- 0.6 ALK PHOS U/L -- -- 96 -- -- -- 109 ALT U/L -- -- 49 -- -- -- 54* AST U/L -- -- 36 -- -- -- 46 < > = values in this interval not displayed. Lab Results Component Value Date MG 2.1 11/11/2024 Results from last 7 days Lab Units 11/11/24 0001 11/10/24 0642 WHITE BLOOD CELL COUNT Thou/uL 7.7 13.2* HEMOGLOBIN g/dL 9.2* 10.5* HEMATOCRIT % 29.4* 33.7* PLATELET COUNT Thou/uL 193 361 NEUTROS PCT % -- 71.7 LYMPHS PCT % -- 17.6 MONOS PCT % -- 9.5 EOS PCT % -- 0.1 BASOS PCT % -- 0.3 Lab Results Component Value Date HSTNT 70 () 11/10/2024 HSTNT 79 () 11/10/2024 Lab Results Component Value Date PROBNP 2,385 (H) 11/10/2024 No results found for: HGBA1C No results found for: CHOL No results found for: HDL No results found for: LDLCALC Lab Results Component Value Date TRIG 210 (H) 11/10/2024 No results found for: CHOLHDL ECG: TELE: Imaging Studies: Echocardiogram (TTE) Comprehensive (Contrast PRN) Result Date: 11/10/2024 Left ventricular systolic function is severely decreased. The quantitative EF by 2D Zimmerman biplane is 25%. Right ventricular systolic function is normal. Valve structure and function are normal. There is no previous study for comparison in our system. Sign: Nan Dietz MD Internal Medicine PGY-2 [facility] 11/11/2024 7:58 AM Available via [employer] Text 24/03 at Crnp Consult Service Associated attestation - Yung Giraldo MD - 11/11/2024 1:55 PM EDT Ms. Hanna was seen and evaluated with Dr. Dietz and I agree with her assessment and plan. Our approach today will be to diurese her aggressively to see if we can get the patient off the ventilator. * ADDI Muse - 11/11/2024 7:24 AM EDT Critical Care Progress Note Subjective Overnight events: - No acute overnight events PM addendum 12:04 PM: Received message from vascular lab that pt has right common femoral DVT. Plan to start heparin drip Assessment & Plan Assessment 53-year-old female with a history of diabetes, hypertension, HFrEF with recently Dx EF 25% who presented to [facility] with SOB, suffered cardiac arrest. ROSC achieved after 4 minutes CPR. Intubated and transferred to for further management. Principal Problem: Cardiac arrest (HCC) LOS: 1 day Plan by system Neuro: No acute issues - Mental status: Alert and oriented, following commands BL - continue dilaudid 1mg IV q2h PRN (x3 overnight) - s/p versed at OSH - s/p propofol gtt - No CT head s/p cardiac arrest however mental status improved Behavioral/Sedation scales CAM-ICU Delirium Present: Negative Henao Agitation Sedation Scale (RASS) / Modified RASS: -1-->Wakes easily, drowsy Resp: Acute hypoxic respiratory failure, likely aspiration event vs HF exacerbation - SpO2 88-100% on PC-AC rate 18, PS 26, FiO2 60%, PEEP 10 - wean O2 then PEEP today - ABG 7.33/37/82/20 - when appropriate for SBT - s/p lasix 40 mg IV 11/10, start lasix 40 mg IV BID - obtain lower ext dopplers - CXR in process, appears wet CXR 11/10: 1. ETT placement. Recommend retraction. 2. Stable bilateral infiltrates. 3. Superior mediastinal prominence. Consider CT follow-up correlation as clinically warranted. This may reflect technique Current Ventilator/Noninvasive Ventilator/Oxygen Settings Ventilation Mode (Drager V500): PC-AC Rate Set (breaths/min) (Drager V500): 18 Pressure Set (cmH2O): 26 Oxygen Concentration (%) (Drager V500): 60 PEEP (cmH2O) (Drager V500): 10 CV: PEA cardiac arrest; Prolonged Qtc. Hx of HTN, prior cardiac arrest (Sep 2024) and HFrEF (reported EF < 20%) - SBP 100s-150s, HR 50s-110s - HST 70 (79), proBNP 2,385 - MvO2: 91.1, indicating distributive shock - ECG 11/10: sinus rhythm with PVCs, Qtc 535 - s/p levo and vaso - holding home carvedilol 6.25 mg and amlodipine 5 mg daily, resume as appropriate - can start home atorvastatin 40 mg daily - PRN diuril 500 mg , goal -1-2L as tolerated - start home aspirin 81 mg daily, just watch CBC - Cardiology consulted, appreciate recommendations - Ruled out for TTM s/p cardiac arrest Echo (11/10/24): Left ventricular systolic function is severely decreased. The quantitative EF by 2D Zimmerman biplaneis 25%. Right ventricular systolic function is normal. Valve structure and function are normal. There is no previous study for comparison in our system. Hemodynamic Parameters GI: No acute issues - continue osmolite at goal rate 35 ml/hr - Nutrition consulted - Total bili 0.6, AST/ALT 46/54, alk phos 109 - Lactic acid 1.3 - start PPI - continue bowel regimen Abdomen XR (11/10): No acute finding. Renal: ? GILBERTO on CKD vs CKD - BUN/Cr 33/1.7 (31/1.8), unclear what baseline Cr is - Bicarb 22 (20) - FeUrea 47.4 % suggests intrinsic renal disease - diuresis as above - monitor chemistry - UOP 3.2L 24h, I/O -1.5L/24h, -1.5L LOS Tate: yes Tate indication: Strict I/O Intake & Output Intake/Output Summary (Last 24 hours) at 11/11/2024 0724 Last data filed at 11/11/2024 0600 Gross per 24 hour Intake 1698.93 ml Output 3200 ml Net -1501.07 ml Endo: Hx of hypothyroidism - FS 100s-160s - continue MIRYAM - Hold home glipizide 10mg, trulicity - TSH 2.76 - start home synthroid 137 mcg daily Heme/Onc: Anemia - H/H 9.2/29.4 (10.5/33.7) - Plt 193 (361) - INR 1.1 - check iron, ferritin, transferrin per cards as part of HF workup - Check LE duplex - DVT ppx: subcutaneous heparin - monitor CBC and for sign of bleeding ID: Leukocytosis (improved), strep PNA - Tmax 101.3 - WBC 7.7 (13.2) - Procal 1.14 - Bcx x2 in process - MRSA negative - viral PCR negative - strep antigen presumed positive - legionella antigen presumed negative - resp cx ordered - on cefepime and doxycycline plan to change to ceftriaxone Vascular access: PIV x2 and femoral central line, will try to remove central line Mobility: Progressive Mobility Level Achieved: Level 0,PT/OT: Yes GI PPx: PPI DVT PPx: SC Heparin VTE Risk Assessment VTE Time Out IMPROVE SCORE: 2 (11/10/2024 9:01 AM) Interpretation - High Risk Chemical Prophylaxis heparin (porcine) 5000 unit/mL injection 5,000 Units Subcutaneous Every 8 hours scheduled Heparin Sodium (Porcine) 5000 Units Last dose 11/11/2024 6:13 AM Mechanical Prophylaxis SCDs are ordered - Bilateral (Knee High) Drips: Lines: Triple Lumen Infusion Catheter 11/10/24 0629 femoral vein, right (Active) Number of days: 1 Peripheral IV - Single Lumen (Adult) 11/10/24 0629 median cubital vein (antecubital fossa), right 18 gauge (Active) Number of days: 1 Peripheral IV - Single Lumen (Adult) 11/10/24 0629 median cubital vein (antecubital fossa), left 18gauge (Active) Number of days: 1 Enteric Access and Tate: Naso/Orogastric Tube (Adult) orogastric mouth, center (Active) Number of days: Urethral Catheter (Adult) 11/10/24 0629 latex (Active) Number of days: 1 Restraints: soft bilateral wrist Interference with medical treatment and Risk for self injury Code: FULL Dispo: ICU, per Dr. Ames Objective Last Vitals: Pulse:(!) 105, Resp:19, BP:BP Min: 121/57 Max: 147/70 MAP: SpO2:100 % CVP: Temp Last 24 hrs: Temp Min: 99.9 ??F (37.7 ??C) Max: 101.3 ??F (38.5 ??C) Physical Exam: General appearance: adult female resting in bed on vent, no acute distress Lungs: scattered course, diminished at bases b/l Heart: RRR S1S2, no murmur appreciated Abdomen: +BS, softly distended, NTND Extremities: no pitting edema BL Neurologic: awake, nodding yes/no appropriately, following commands in all extremities. Non-focal. Labs: Recent Labs 11/10/24 0642 11/11/24 0001 WBC 13.2* 7.7 HGB 10.5* 9.2* HCT 33.7* 29.4* PLT 361 193 MCV 85 84 MCH 26.4* 26.1* MCHC 31.2 31.3 RDW 14.5 14.8* BASOABS 0.04 -- Recent Labs 11/10/24 0642 11/10/24 0750 11/10/24 1500 11/10/24 1500 11/11/24 0001 BUN 31* -- 33* -- 33* CREAT 1.8* -- 1.8* -- 1.7* NA 137 -- 137 -- 139 K 4.0 -- 4.1 -- 3.8 CO2 19* 20* 20* 20* -- 22 CL 104 -- 104 -- 107 MG -- -- 1.6 -- 2.1 PHOS -- -- 4.3 < > 4.7* AST 46 -- -- -- 36 ALT 54* -- -- -- 49 PROT 7.1 -- -- -- 7.4 < > = values in this interval not displayed. Recent Labs 11/10/24 1500 INR 1.1 Medications Medication/MAR Report: Medications Scheduled Medication Ordered Dose/Rate, Route, Frequency Last Action cefepime (MAXIPIME) 2 g in sodium chloride-MBP (NS) 100 mL IVPB-MBP 2 g, IV, Q12H New Bag, 2 g at 11/10 2099 chlorhexidine gluconate 2 % wipes - central line CHG application No Dose/Rate, TOP, Daily Ordered doxycycline (VIBRAMYCIN) 100 mg in sodium chloride-MBP (NS) 100 mL IVPB-MBP 100 mg, IV, Q12H New Bag, 100 mg at 11/11 442 heparin (porcine) 5000 unit/mL injection 5,000 Units 5,000 Units, SC, Q8H MILO Given, 5,000 Units at 11/11 06 insulin lispro (HumaLOG/ADMELOG) 100 units/mL injection 3-11 Units 3-11 Units, SC, Q4H MILO Given, 4 Units at 11/11 442 multivitamin with minerals (CEROVITE) liquid 15 mL 15 mL, FT, Daily Given, 15 mL at 11/10 1711 protein supplement feeding tube flush (PROSOURCE TF) 3 oz 3 oz, FT, BID Given, 3 oz at 11/10 210 senna-docusate (SENNA-S) 8.6-50 MG tablet 2 tablet 2 tablet, PO, Nightly Given, 2 tablet at 11/10 2104 PRN Medication Ordered Dose/Rate, Route, Frequency Last Action acetaminophen (TYLENOL) tablet 650 mg 650 mg, PO, Q6H PRN Given, 650 mg at 11/10 1831 bisacodyl (DULCOLAX) suppository 10 mg 10 mg, RE, Daily PRN Ordered dextrose 50 % solution 12.5 g (Or Linked Group #1) 12.5 g, IV, Q15 Min PRN Ordered dextrose 50 % solution 25 g (Or Linked Group #1) 25 g, IV, Q15 Min PRN Ordered glucagon (GLUCAGEN) injection 1 mg (Or Linked Group #1) 1 mg, IM, Daily PRN Ordered glucose (GLUTOSE 15) 40 % oral gel 37.5 g (Or Linked Group #1) 1 Tube, PO, Q15 Min PRN Ordered glucose (GLUTOSE 15) 40 % oral gel 75 g (Or Linked Group #1) 2 Tube, PO, Q15 Min PRN Ordered HYDROmorphone (DILAUDID) 2 mg/mL injection 1 mg 1 mg, IV, Q2H PRN Given, 1 mg at 11/11 0441 lactulose (ENULOSE) 10 gm/15 mL solution 20 g 30 mL, PO, Q4H PRN Ordered naloxone (NARCAN) 0.4 mg/mL injection 0.4 mg 0.4 mg, IV, Q5 Min PRN Ordered perflutren lipid microsphere (DEFINITY) 1.3 mL in sodium chloride (NS) 0.9 % 10 mL 0.5-8 mL, IV, Once in imaging Ordered Sign: ADDI Flores 11/11/2024 7:24 AM * Cesilia Ames MD - 11/11/2024 5:45 AM EDT Images from the original note were not included. Critical Care Progress Note Assessment 54 y.o. female with history of obesity, hypothyroidism, CKD, HFrEF who presented with cardiac arrest. The patient is critically ill/injured and/or remains at high risk for life threatening complications requiring critical care management given the following acute conditions and comorbid processes Active Problems: Cardiac arrest Shock likely cardiogenic and septic Acute hypoxemic respiratory failure Acute on possibly chronic HFrEF Acute cardiogenic pulmonary edema NSTEMI type II, demand GILBERTO Acute metabolic encephalopathy Anemia Comorbid Conditions: Obesity Hypothyroidism Possible HFrEF Total LOS: 1 days Overnight Dilaudid O/N No events o/n At She arrived afebrile BP 129/77 on levophed at 26, satting 100% on PC/AC 100% FiO2. Labs notable for WBC 13.2, H/H 10.5/33.7, BUN/Cr 31/1.8, CO2 19, lactate 1.3, Troponin 79, proBNP 2385, procalcitonin 1.14, VBG 7.30/38. CXR showed bilateral infiltrates and superior mediastinal prominence. Plan by System I performed rounds on the medical unit with the entire critical care team and we discussed the events below while developing the daily treatment plan: Neuro: CAM-ICU Delirium Present: Negative Henao Agitation Sedation Scale (RASS) / Modified RASS: -1-->Wakes easily, drowsy Acute metabolic encephalopathy S/p arrest Was able to follow commands off prop Off propofol Follows commands Dilaudid PRN Can hold off CT head as she is following commands Not a TTM candidate, treat fevers aggressively Resp: Ventilator Start 11/10/24 0657 (Active) Number of days: 1 Ventilation Mode (Drager V500): PC-AC Rate Set (breaths/min) (Drager V500): 18 Pressure Set (cmH2O): 26 Oxygen Concentration (%) (Drager V500): 60 PEEP (cmH2O) (Drager V500): 10 Acute hypoxemic respiratory failure CXR with evidence of fluid overload Suspect flash pulmonary edema PE not likely considering the normal RV function on echo Ventilate with tidal volume 6cc/kg ideal body weight, maintain plateau pressure less than 30 and driving pressure less than 15 Wean FiO2 as able Target pO2 60 7.33/37/82 CV: Shock, likely cardiogenic and septic NSTEMI type II, demand Acute on chronic HFrEF EF 25% EKG nonischemic Trend troponin Off Levophed, goal MAP > 65 Off vaso Lasix 40 mg bid IV and Diuril 500 mg PRN Obtain echo Obtain mixed venous Start statin and ASA Keep K> 4 and Mg> 2 Elevated proBNP Diuresis with goal net -1 to 2 L as BP allows Cardiology consult Trop decreasing Pbnp 2 K Lactic acid 1.3 >Echo: Pending GI: Cont tube feeds Bowelk regimen LFT PPI >Nutrition: Diet/Nutrition Received: NPO, tube feeding Diet, Tube Feeding, No Tray Continuous; OG Tube; Osmolite 1.5; 10 mL; 35 mL/hr; 10; q3h; Water; Every 4 hours; 30 cc; NPO Renal: GILBERTO on CKD-unknown baseline Unclear baseline creat Monitor electrolytes Diuresis as above Tate in place Feurea 47% Lasix 40 mg bid IV Keep O>I CKD3 >Intake & Output Intake/Output Summary (Last 24 hours) at 11/11/2024 0545 Last data filed at 11/11/2024 0500 Gross per 24 hour Intake 1663.93 ml Output 3135 ml Net -1471.07 ml I/O last 3 completed shifts: In: 1243.9 [I.V.:303.9; IV Piggyback:940] Out: 1880 [Urine:1880] Endo: Monitor fglucose FS q 4h TSH 2.7 Home synthroid Heme/Onc: Anemia Monitor H/H, goal 03/21 No evidence of bleeding INR 1.1 Obtain Doppler LE HSQ Px ID: Suspected pneumonia Ceftriaxone D/C azithromycin MRSA PCR Strep Ag + Pro CT 1.14 Viral PCR neg Blood and resp culture Remove femoral TLC HSQPx PPI >Antibiotics: Anti-infectives (From admission, onward) Start Dose/Rate Route Frequency Ordered Stop 11/10/24 1730 doxycycline (VIBRAMYCIN) 100 mg in sodium chloride-MBP (NS) 100 mL IVPB-MBP 100 mg 50 mL/hr over 120 Minutes Intravenous Every 12 hours 11/10/24 1701 11/10/24 0758 cefepime (MAXIPIME) 2 g in sodium chloride-MBP (NS) 100 mL IVPB-MBP 2 g 33.3 mL/hr over 3 Hours Intravenous Every 12 hours 11/10/24 0757 >Recent Cultures: Culture Date Value Ref Range Status 11/10/2024 PENDING Preliminary 11/10/2024 Sterile <24 hours Preliminary 11/10/2024 Sterile <24 hours Preliminary ICU Checklist Drips: Lines: Triple Lumen Infusion Catheter 11/10/24 0629 femoral vein, right (Active) Number of days: 1 Peripheral IV - Single Lumen (Adult) 11/10/24 0629 median cubital vein (antecubital fossa), right 18 gauge (Active) Number of days: 1 Peripheral IV - Single Lumen (Adult) 11/10/24 0629 median cubital vein (antecubital fossa), left 18gauge (Active) Number of days: 1 Restraints: Restraint Type: Unlocked Unlocked Bilateral Wrist (NV): continued Behaviors Observed: pulling at lines/tubes Mobility: Progressive Mobility Level Achieved: Level 0 Tate: Urethral Catheter (Adult) 11/10/24 0629 latex (Active) Number of days: 1 GI Prophylaxis (if needed): PPI VTE Time Out IMPROVE SCORE: 2 (11/10/2024 9:01 AM) Interpretation - High Risk Chemical Prophylaxis heparin (porcine) 5000 unit/mL injection 5,000 Units Subcutaneous Every 8 hours scheduled Heparin Sodium (Porcine) 5000 Units Last dose 11/10/2024 9:05 PM Mechanical Prophylaxis SCDs are ordered - Bilateral (Knee High) Code Status and Disposition CODE STATUS: FULL DISPOSITION: ICU I spent 32 minutes of Critical Care time in multiple visits throughout the day for collaboration/coordination of care exclusive of time spent performing separately billable medical procedures. I affirm that this patient is critically ill and at high risk for sudden, fatal deterioration due to one or more of the above active issues. I managed/supervised life- or organ-supporting interventions that require frequent physician assessment and reassessment. Critical care time was spent, but not limited to, the review of laboratory test results, medications, relevant radiology and discussing this critically ill patient's care with other medical staff in the unit or at the nursing station [facility] floor where the patient is located. My full attention was given to the management of this patient and I was immediately available during this same time. Objective SpO2:96 %,O2 Device: ventilator, , Oxygen Concentration (%) (Drager V500): 60 Temp Last 24 hrs: Temp Min: 96.6 ??F (35.9 ??C) Max: 101.3 ??F (38.5 ??C) WBC Trend White Blood Cell Count Date Value Ref Range Status 11/11/2024 7.7 4.0 - 11.0 Thou/uL Final 11/10/2024 13.2 (H) 4.0 - 11.0 Thou/uL Final Last Vitals: Pulse:(!) 104, Resp:18, BP:BP Min: 118/58 Max: 147/70 MAP: Physical Exam: General: Intubated HEENT: supple without LAD Lungs: clear to auscultation bilaterally Chest wall: no tenderness Heart: regular rate and rhythm, S1, S2 normal, no murmur, click, rub or gallop Abdomen: soft, non-tender; bowel sounds normal; no masses, no organomegaly Extremities: atraumatic, no cyanosis or edema Neuro: non focal, awake follows commands Skin: Warm, no rash I reviewed the prescribed Medications and new Laboratory Blood Work I reviewed all new Imaging Studies (actual images) and compared to prior where applicable Sign: Cesilia Ames MD 11/11/2024 5:45 AM * Neil Morales PharmD - 11/10/2024 9:01 AM EDT Pharmacokinetic Consult - Vancomycin Dosing (for patients with acute kidney injury or those on renal replacement therapy) Marli Hanna is a 54 y.o. female who has been consulted for vancomycin dosing for pneumonia. Height: Last ht No data found for Ht Weight: Last wt 11/10/24 90.5 kg (199 lb 8.3 oz) IBW: Patient height not recorded Labs: Creatinine Date/Time Value Ref Range Status 11/10/2024 06:42 AM 1.8 (H) 0.4 - 1.1 mg/dL Final Blood Urea Nitrogen (BUN) Date/Time Value Ref Range Status 11/10/2024 06:42 AM 31 (H) 8 - 21 mg/dL Final No results found for: VANCOTR , VANCTR , VANCORAND , VANRAN , VANCOPK , VANCPK CrCl cannot be calculated (Unknown ideal weight.). Assessment: At this time, give a loading dose of 2000 mg. The pharmacy team will plan to obtain a random level within 24 hours. Pharmacy will continue to follow the patient's renal function, culture results, and clinical progress daily. Neil Morales PharmD A Document for: [facility] Title: Vancomycin: Pharmacy to Dose_[facility] Purpose: To provide instruction on pharmacy to dose vancomycin service Scope: Prescribers and pharmacists Protocol: Prescriber Responsibilities: Prescribers may order ???vancomycin dosing by pharmacy??? to authorize pharmacy to manage vancomycin therapy. Prescriber must document the indication for vancomycin. Pharmacist Responsibilities: For orders entered as ???vancomycin dosing by pharmacy???, the pharmacist will dose, monitor, and modify vancomycin therapy. The pharmacist will check the patient???s record for doses of vancomycin administered prior to the implementation of the protocol, will determine the time of administration of the first protocol dose, and will, if necessary, call the nurse to schedule doses accordingly. Pharmacists will demonstrate competency on a regular basis. All vancomycin orders and related labs should be ordered per protocol, no cosign required. Protocol Exclusions: Adult patients weighing less than 20 kg Trough-based monitoring in conjunction with the provider and an infectious diseases clinical pharmacist should be utilized. Pediatric patients (less than 16 years of age) An infectious diseases clinical pharmacist should be contacted for assistance with dosing. patients (Less than 28 days of age) Contact [facility] for assistance. AUC Therapeutic Drug Monitoring: An AUC/JOSE DAVID (area under the curve/minimum inhibitory concentration) ratio of greater than or equal to 400 is considered the optimal pharmacokinetic/pharmacodynamic efficacy target for vancomycin. The literature supporting this target is mainly derived from studies of patients with MRSA bloodstream infections. An JOSE DAVID of less than or equal to 1 mg/L should be assumed for empiric dosing. Alternative agents arerecommended when the JOSE DAVID is 2 mg/L or greater. Data suggests that an AUC less than 400 potentiates the emergence of resistance. A target AUC of 400 to 600 is recommended to achieve clinical efficacy while improving patient safety. For some infections, such as BOARDING KENNEL OR CATTERY OPERATOR infections, a higher range of 500-600 may be considered if possible. Trough-based monitoring is no longer recommended for most patients based on efficacy and nephrotoxicity data. Bayesian dosing software, like InsightRx???,utilizes a population pharmacokinetic model coupled with an individual patient???s observed drug concentrations to calculate the patient???s optimal vancomycin dosing regimen. InsightRx??? should be utilized to dose all vancomycin regimens unless otherwise noted in the protocol. Vancomycin Dosing Recommendations Dosing: Available Doses: 500 mg, 750 mg, 1000 mg, 1250 mg, 1500 mg, 1750 mg, 2000 mg, 2500 mg Doses should be rounded to the nearest 250 mg Maximum Doses: Maximum loading dose: 2500 mg Maximum maintenance dose: 2000 mg Minimum Dose: 500 mg Dosing Frequencies: Every 6, 8, 12, 18, 24, 36, or 48 hours For ease of administration, consider preferentially using every 8, 12, or 24- hour dosing regimens when possible and if clinically appropriate based on pharmacokinetic estimates. All doses should be based on actual body weight Vancomycin Infusion Times: Doses of 1.5 g or less will be infused over 1.5 hours. Doses of 1.75 to 2 g will be infused over 2 hours Doses of 2.5 g will be infused over 2.5 hours Loading Doses: Loading doses should be administered to all patients who are not currently on vancomycin. Loading doses are solely dependent on the weight of the patient. Renal function should not be used as a deciding factor to order or the amount of the loading dose. (See Table 1) Loading doses can be entered in InsightRx??? within the loading dose feature to check that simulated PK exposure predictions fall within the target range. The loading dose feature in InsightRx??? will only appear when no doses have been documented in the patient???s chart. Table 1 Loading doses for patients based on actual body weight: Weight: Vancomycin Dose: 20-29 kg 500 mg 30-39 kg 750 mg 40-49 kg 1000 mg 50-59 kg 1250 mg 60-69 kg 1500 mg 70-79 kg 1750 mg 80-99 kg 2000 mg 100 kg or more 2500 mg Maintenance Doses: InsightRx??? will be utilized to determine maintenance regimens in all patients with stable renal function using the DoseAssist function. InsightRx??? recommends doses based on the patient???s age, weight, renal function, predicted trough and AUC, and richly sampled vancomycin data as the Bayesian prior. InsightRx??? will calculate the predicated 24-hour AUC at steady state (AUC24, ss), the trough concentration at steady state (Ctrough, ss), the probability of an AUC24, ss greater than or equal to 400 (PAUC), the probability of Ctrough,ss greater than or equal to 20 mg/L (Pconc), and the probability of a nephrotoxic event (Tox.). Pharmacists should aim to keep the Pconc and Tox. column values as close to 0% as possible, while maximizing PAUC closest to 100%. Maintenance Doses & Unstable Renal Function: When dosing patients with acute kidney injury or unstable renal function, InsightRx??? should stillbe utilized to determine the appropriate regimen. In the setting of significant renal impairment, an orange warning banner will populate in InsightRx??? indicating when the custom dose feature should be utilized. The custom dose feature in InsightRx??? must be utilized as the DoseAssist feature will no longer populate recommendations in these scenarios. The custom dose feature can be used to evaluate the patient???s predicted exposure metrics based onthe various regimens entered. In patients with fluctuating renal function, a [id number] strategy can be utilized. Target AUC Concentrations: A target AUC of 400 to 600 is recommended for all patients except those with BOARDING KENNEL OR CATTERY OPERATOR infections. For BOARDING KENNEL OR CATTERY OPERATOR infections, a higher range of 500-600 may be considered if possible. Therapeutic Drug Monitoring: Initial vancomycin concentration levels should be drawn early in therapy, within the first 24-48 hours of therapy, generally after doses 2-4. It is no longer necessary to wait until steady state to collect levels. Earlier level collection allows for early target attainment and optimal efficacy. Levels should routinely be ordered to be collected with AM labs to decrease the number of lab sticks required. Levels may be interpreted from any time point between dose administrations (except during the infusion). All levels should be ordered as random levels. Vancomycin levels should be ordered within approximately 24 hours of due time. Levels should not beordered several days in advance. Doses should not be routinely held by nursing awaiting the return of a vancomycin level that is in process. If there is concern for supratherapeutic levels (i.e., in the setting of acute kidney injury) the vancomycin regimen should be discontinued pending evaluation of the level and doses re-ordered accordingly after the level results. Repeat Levels: Throughout the treatment course, repeat levels may be considered to be obtained within 24-48 hours: After a dosing regimen change During changes in renal function (SCr change by greater than or equal to 0.3 mg/dL OR urine output less than 0.5 mL/kg/hr over 6 hours) Hemodynamic instability If patients remain clinically stable with a documented AUC concentration in range, repeat levels only need to be rechecked every 5-7 days. Vancomycin Received at an Outside Hospital: Vancomycin doses that were received at an outside hospital or via home infusion can be manually entered into InsightRx??? along with any levels that were collected prior to admission to [facility]. This will allow InsightRx??? to recognize that the patient is likely already at steady state and the dosing r ecommendations in the DoseAssist feature will reflect this. If the doses administered or time since the last dose administered is unknown or there is a concernfor supratherapeutic levels, a random stat level should be collected prior to dosing vancomycin to ensure level is not supratherapeutic. Laboratory Monitoring: Pharmacists may order serum creatinine, BUN, and vancomycin levels as needed per protocol. For new start vancomycin orders or for patients receiving vancomycin for less than 48 hours with anorder indication of pneumonia or sepsis that is secondary to suspected pneumonia, pharmacists may order a ???MRSA PCR Screen, Qualitative?? per protocol, no cosign required. The MRSA PCR nasal swab has a high negative predictive value for MRSA pneumonia. If the PCR resultsas ???not detected?? , the provider team should be contacted to discuss the need for vancomycin if no other clinical indications for vancomycin are present. Administration of doses should not be delayed pending a PCR result. A positive MRSA PCR nasal swab has a low positive predictive value and does not independently indicate the presence of MRSA pneumonia Vancomycin Dosing in Dialysis Patients requiring any form of dialysis will be dosed outside of the InsightRx??? software. All patients should receive weight-based loading doses as recommended in Table 1. Trough-based monitoring should be utilized for all patients requiring hemodialysis. Intermittent hemodialysis: Pre-hemodialysis vancomycin levels are preferred and should be drawn with scheduled morning labs when possible. Each dialysis session is expected to decrease the pre-dialysis level by 30-50%. Goal pre-hemodialysis level: 15-20 mcg/mL for all indications Maintaining pre-hemodialysis concentrations between 15 and 20 mcg/mL is likely to achieve an AUC of400 to 600 in the previous 24 hours. Random levels should be drawn within the first 72 hours of therapy and after the loading dose has been administered, prior to the next dialysis session. Generally, the weight-based maintenance doses from Table 2 in the protocol can be given after a hemodialysis session. In some instances, patients may have very low levels after receipt of a vancomycin loading dose. The calculation below can be utilized to help obtain a therapeutic level after a dialysis session. ? Concentration = Dose/VD (VD= 0.7 * weight) The supplemental dose is not intended to be a standard maintenance dose. Once a therapeutic regimen has been attained, levels should be monitored every 5-7 days in stable patients. Table 2 Hemodialysis Initial Maintenance Doses Weight Dose 20 - 59 kg 500 mg with each HD session 60 - 89 kg 750 mg with each HD session 90 kg or greater 1000 mg with each HD session Peritoneal Dialysis: For patients undergoing peritoneal dialysis and receiving intravenous vancomycin therapy, a level should be checked 24 hours after the initial dose. Subsequent doses should be administered based on the level. Frequencies of 48-72 hours may be expected. Patients receiving vancomycin intraperitoneally are excluded from this protocol. An infectious diseases clinical pharmacist should be contacted for assistance with dosing. Continuous Renal Replacement Therapy (CRRT): Patients receiving systemic vancomycin and continuous renal replacement therapy should be re-dosed with vancomycin when serum levels are or are expected to be less than 20 mcg/mL. The pharmacist should order a vancomycin random level approximately 12 hours after the initial dose. The pharmacist will re-dose accordingly based on level and monitor daily for CRRT interruptions or modifications. Monitoring Pharmacists will review patients daily (even if there is no pending level for that day). Daily reviews should include monitoring renal function, concomitant nephrotoxic agents (Table 3), microbiology, doses administered, pharmacy & relevant provider notes, and pending levels. In patients receiving dialysis or continuous renal replacement therapy, the pharmacist will review dialysis schedule & nephrology notes daily. Table 3 Potentially Nephrotoxic Agents: (list is not all-inclusive) Acyclovir [place] Aminoglycosides Loop Diuretics (usually higher doses) Amphotericin B and derivatives Methotrexate Angiotensin Inhibitors and Blockers NSAIDS (including WILKERSON-1 and WILKERSON-2 Inhibitors Calcineurin Inhibitors (cyclosporine, tacrolimus, sirolimus) Pentamidine Cidofovir Polymyxins (colistimethate and polymixin B) Contrast Media Piperacillin/tazobactam Foscarnet Documentation Pharmacists should document in Epic their plan for dosing and monitoring vancomycin per pharmacy protocol. The summary note from InsightRx??? should be copied into the pharmacy protocol i-Vent and posted inthe chart as a note for all patients being dosed with InsightRx???. The Epic i-Vent template shouldbe utilized for all trough-based monitoring. At initiation of therapy With each level With each regimen change Patients being discharged on long-term intravenous vancomycin Pharmacists will ensure adequate handoff via verbal communication with external pharmacies/providers for patients who are being discharged on long-term IV vancomycin. The process for long-term vancomycin handoffs will be as follows: When a provider enters a discharge prescription for IV vancomycin, a RxDischarge In Basket message will fire. The pharmacist will review the discharge plans, including anticipated date of discharge and who will be taking over outpatient antibiotic therapy. Pharmacists will also review inpatient dosing regimen, recent labs, and anticipated plan for antibiotic therapy. Pharmacist will call long-term care pharmacy, home infusion service, etc. to provide handoff of thepatient???s vancomycin regimen, recent drug levels (provide AUC and corresponding estimated trough level listed in InsightRx???), and any other pertinent information to safely and effectively hand off therapy. From the Rx Discharge message, pharmacists will use the New i-Vent button to document handoff as follows: i-Vent type: ???Transitions of Care?? i-Vent subtype: ???Discharge Handoff?? Pharmacists will use SmartText ???.dischargevancomycin?? to document the handoff that occurred. Pharmacists will copy the i-Vent to a note so that it is visible in the patient???s chart. Three attempts should be made to provide the discharge handoff Each attempt you make should be documented in an ivent using the SmartText ???.dischargevancounsuccessful?? and copied into the chart as a note After three unsuccessful attempts, update the ivent using the ivent template and orestes the BPA in the In Basket complete Downtime Procedures Should an Epic downtime occur, the following procedures should be followed. If internet is still accessible during the downtime, the InsightRx??? web-based platform can still be utilized ([email or web address]). All general concepts or restrictions in this protocol should still be followed during downtime Loading doses should be administered to all patients as recommended in Table 1 Table 4 should be referenced for the recommended initial maintenance dose and frequency based on the patient weight and creatinine clearance if the web-based platform is not available. This should beused in downtimes only when the InsightRx??? web-based platform is not available. In the setting of Epic and internet downtime, trough-based monitoring should be utilized Trough Goals: 15-20 mcg/mL for severe infections such as bacteremia, endocarditis, pneumonia, necrotizing fasciitis, or meningitis 10-20 mcg/mL for cellulitis, urinary tract infections Trough levels should be collected 1 hour prior to the 4th or 5th dose or sooner based on clinical judgement. Patients with impaired or unstable renal function should be dosed by level. Once the downtime has resolved, patients should be converted to AUC monitoring and doses administered during the downtime can be manually added to InsightRx???. Table 4 Creatinine Clearance (CrCl) Recommended Dose & Interval Greater than or equal to 100 mL/min & age less than 50 years 10-15 mg/kg IV Q8h Greater than or equal to 100 mL/min & age greater than 50 years 15-20 mg/kg IV Q12h 70-99 mL/min 15-20 mg/kg IV Q12h 50-69 mL/min 10-15 mg/kg IV Q12h 30-49 mL/min 15-20 mg/kg IV Q24h Less than 30 mL/min (not on hemodialysis) OR Unstable renal function 15-20 mg/kg IV once Obtain random level with AM labs or at 12- or 24-hour interval as applicable Re-dose at 10-15 mg/kg when level is estimated to be less than 20 mcg/mL documented in this encounter H&P Notes * Luke King MD - 11/10/2024 8:26 AM EDT Images from the original note were not included. Division of Pulmonary, Critical Care, and Sleep Medicine [address] [place] [address], [address], [place] [address] Critical Care Progress Note Assessment 54 y.o. female with history of obesity, hypothyroidism, CKD, HFrEF who presented with cardiac arrest. The patient is critically ill/injured and/or remains at high risk for life threatening complications requiring critical care management given the following acute conditions and comorbid processes Active Problems: Cardiac arrest Shock likely cardiogenic and septic Acute hypoxemic respiratory failure Anemia GILBERTO HFrEF NSTEMI type II, demand Acute metabolic encephalopathy Comorbid Conditions: Obesity Hypothyroidism Total LOS: 0 days Overnight At She arrived afebrile BP 129/77 on levophed at 26, satting 100% on PC/AC 100% FiO2. Labs notable for WBC 13.2, H/H 10.5/33.7, BUN/Cr 31/1.8, CO2 19, lactate 1.3, Troponin 79, proBNP 2385, procalcitonin 1.14, VBG 7.30/38. CXR showed bilateral infiltrates and superior mediastinal prominence. Plan by System I performed rounds on the medical unit with the entire critical care team and we discussed the events below while developing the daily treatment plan: Neuro: Henao Agitation Sedation Scale (RASS) / Modified RASS: -2-->Wakes slowly, very drowsy/light sedation Acute metabolic encephalopathy S/p arrest Was able to follow commands off prop Sedate with prop Opiate PRN Can hold off CT head as she is following commands Not a TTM candidate, treat fevers aggressively Resp: Ventilator Start 11/10/24 0657 (Active) Number of days: 0 Ventilation Mode (Bell[place]ista): Pressure Assist Control Ventilaton Rate Set (breaths/min) ([place]ista): 18 Vt Set ml (Bellavista): 22 PEEP (cm H2O) (Bellavista): 12 mbar Acute hypoxemic respiratory failure CXR with evidence of fluid overload Suspect flash pulmonary edema PE possible but given chest x-ray findings we will hold off CTA Obtain lower extremity Dopplers Ventilate with tidal volume 68 cc/kg ideal body weight, maintain plateau pressure less than 30 and driving pressure less than 15 ABG improving CV: Shock, likely cardiogenic and septic NSTEMI type II, demand EKG nonischemic Trend troponin Levophed, goal MAP > 65 Start vaso Obtain echo Obtain mixed venous History of HFrEF 20%? Elevated proBNP Diuresis with goal net -1 to 2 L Cardiology consult >Echo: Pending GI: NPO Hold tube feeds due to high pressor requirement >Nutrition: Diet NPO Renal: GILBERTO Unclear baseline Monitor electrolytes Diuresis as above Tate in place >Intake & Output Intake/Output Summary (Last 24 hours) at 11/10/2024 0826 Last data filed at 11/10/2024 0800 Gross per 24 hour Intake -- Output 125 ml Net -125 ml No intake/output data recorded. Endo: Monitor flucose Heme/Onc: Anemia Monitor H/H, goal 03/21 No evidence of bleeding ID: Suspected pneumonia Vanc/cefepime/azithro MRSA PCR Strep/legionella Blood and resp culture >Antibiotics: Anti-infectives (From admission, onward) Start Dose/Rate Route Frequency Ordered Stop 11/10/24 0758 cefepime (MAXIPIME) 2 g in sodium chloride-MBP (NS) 100 mL IVPB-MBP 2 g 33.3 mL/hr over 3 Hours Intravenous Every 12 hours 11/10/24 0757 11/10/24 0755 vancomycin (VANCOCIN) IV dosing PER PHARMACY PROTOCOL Pharmacy Protocol Orders Pharmacy Protocol Orders 11/10/24 0757 >Recent Cultures: No results found for: CULTURE ICU Checklist Drips: norepinephrine (LEVOPHED) IV infusion, 2-60 mcg/min, Last Rate: 24 mcg/min (11/10/24 0818) Lines: Peripheral IV - Single Lumen (Adult) 11/10/24 0629 median cubital vein (antecubital fossa), right 18 gauge (Active) Number of days: 0 Peripheral IV - Single Lumen (Adult) 11/10/24 0629 median cubital vein (antecubital fossa), left 18gauge (Active) Number of days: 0 Restraints: Restraint Type: Unlocked Unlocked Bilateral Wrist (NV): start Behaviors Observed: pulling at lines/tubes, agitated upon awakening, agitated with patient care Mobility: Tate: Urethral Catheter (Adult) 11/10/24 0629 latex (Active) Number of days: 0 GI Prophylaxis (if needed): PPI VTE Time Out VTE risk assessment NOT done - Click here to document Chemical Prophylaxis heparin (porcine) 5000 unit/mL injection 5,000 Units Subcutaneous Every 8 hours scheduled Mechanical Prophylaxis SCDs are ordered - Bilateral (Knee High) Code Status and Disposition CODE STATUS: FULL DISPOSITION: ICU I spent 38 minutes of Critical Care time in multiple visits throughout the day for collaboration/coordination of care exclusive of time spent performing separately billable medical procedures. I affirm that this patient is critically ill and at high risk for sudden, fatal deterioration due to one or more of the above active issues. I managed/supervised life- or organ-supporting interventions that require frequent physician assessment and reassessment. Critical care time was spent, but not limited to, the review of laboratory test results, medications, relevant radiology and discussing this critically ill patient's care with other medical staff in the unit or at the nursing station onthe floor where the patient is located. My full attention was given to the management of this patient and I was immediately available during this same time. Objective SpO2:100 %,O2 Device: ventilator, , Temp Last 24 hrs: Temp Min: 96.6 ??F (35.9 ??C) Max: 100.2 ??F (37.9 ??C) WBC Trend White Blood Cell Count Date Value Ref Range Status 11/10/2024 13.2 (H) 4.0 - 11.0 Thou/uL Final Last Vitals: Pulse:86, Resp:18, BP:BP Min: 113/68 Max: 142/79 MAP: Physical Exam: General: Intubated and sedated HEENT: supple without LAD Lungs: clear to auscultation bilaterally Chest wall: no tenderness Heart: regular rate and rhythm, S1, S2 normal, no murmur, click, rub or gallop Abdomen: soft, non-tender; bowel sounds normal; no masses, no organomegaly Extremities: atraumatic, no cyanosis or edema Neuro: non focal Skin: Warm, no rash I reviewed the prescribed Medications and new Laboratory Blood Work I reviewed all new Imaging Studies (actual images) and compared to prior where applicable Sign: Luke King MD 11/10/2024 8:26 AM documented in this encounter Consult Notes * Gayatri Rivera Kellie, PROFESSOR OF BUSINESS ADMINISTRATION - 11/15/2024 12:38 PM EDTAssociated Order(s): IP CONSULT TO INTERVENTIONAL CARDIOLOGY Images from the original note were not included. Interventional Cardiology / Cardiac Catheterization Consult Date of Consult: 11/15/2024 Patient's Primary Care Provider: No primary care provider on file. Physician Requesting Consult: Dr. Padilla Reason for Consultation: Congestive heart failure Name: Marli Hanna Age: 54 y.o. Sex: female Race and Ethnicity Race Other Ethnic Group or Principal Problem: Cardiac arrest (HCC) (POA: Yes) Resolved Problems: Assessment & Plan Assessment 1. 54 y.o. female with LVEF 25% recently diagnosed HFrEF 2. Cardiac arrest, acute respiratory failure 3. Hypertension 4. Hyperlipidemia 5. Type 2 diabetes mellitus 4. Acute right common femoral vein partial DVT diagnosed 3/14/25; lovenox 90 mg Q 12 hours. We recommend transition to IV heparin until post cath period. 7. GILBERTO on CKD stage III; unknown baseline I have personally reviewed with the patient and family the medical history, labs, previous testing and testing results consisting of echocardiogram, stress testing, EKG, and have requested/obtained records to review. Adjusted CathPCI bleeding event risk: 4.5% Estimated Creatinine Clearance: 40.3 mL/min (A) (by C-G formula based on SCr of 1.6 mg/dL (H)). Risk of any post PCI TOAN 7.5%; risk of post PCI TOAN requiring dialysis 0.04% Maximum Predicted Contrast 140.6 cc Plan The plan is to proceed with further evaluation with a right and left heart catheterization, coronary angiogram. 1.Please gently hydrate pre-procedure; 75cc/hr x 6 hours. 2. Please hold nephrotoxic medications (Jardiance) pre procedure. 3. The patient is taking anticoagulation enoxaparin 90 mg po bid. Ideally, this medication, at thisdose, would be held 24 hours prior to left heart cath to reduce risk of bleeding. Primary team to transition Ms. Hanna to heparin and hold enoxaparin tonight and tomorrow. The reason for the procedure, the alternatives (medical therapy, other non- invasive imaging tests) to the procedure and the risks were discussed. The details of the procedure were discussed, benefitsand risks explained include approximately a 1% risk of major complications including , heart attack, stroke, and bleeding/blood transfusion, vascular complications/perforation, loss of limb, need for emergency bypass or vascular surgery, allergic reactions, adverse reaction to contrast or sedation, emergency defibrillation, endotracheal intubation, renal insufficiency or failure, small risk of temporary or permanent hemodialysis, etc. In the setting of a PCI, the need for prolonged dual antiplatelet therapy with heightened risk of bleeding and needing to defer elective surgery was all discussed with the patient. All questions answered, the patient wishes to proceed. Please contact the mill labor supervisor if the patient develops intractable chest pain, clinical instability, or dynamic ECG changes. Total amount of time spent on visit: 60 min Subjective Chief Complaint Recently diagnosed NICM with LVEF 25% History of Present Illness Mr. Hanna is a 54-year-old female with recently diagnosed NICM LVEF 25%. She has a history of a PEA cardiac arrest in September 2024, and a second cardiac arrest on 11/10/2024 when she arrived to the ED at [facility]. At [facility], she was found to be in pulmonary edema and diagnosed with acute respiratory failure. TTE demonstrated severely diminished LV function, normal RV size and function, and high-sensitivity troponin was mildly elevated. She has GILBERTO on CKD stage III, and was found to have an acute right CFV DVT. She was initially started on a heparin drip, and then transition to Lovenox 90 mg twice daily. She denies any history of chest pain, dyspnea on exertion, lightheadedness syncope or presyncope. She denies orthopnea. Her medical history also includes hypertension, hyperlipidemia, type 2 diabetesmellitus, hypothyroidism, and anemia. She denies any history of problematic bleeding. She does not have any surgeries or procedures scheduled in the next 6 months. Past History No past medical history on file. No past surgical history on file. No family history on file. Social History Tobacco Use Smoking status: Not on file Smokeless tobacco: Not on file Substance Use Topics Alcohol use: Not on file Review of Systems Review of Systems Constitutional: Negative for activity change and appetite change. HENT: Negative for facial swelling and hearing loss. Eyes: Negative for pain, discharge and itching. Respiratory: Negative for chest tightness and shortness of breath. Gastrointestinal: Negative for anal bleeding, blood in stool and constipation. Endocrine: Negative for cold intolerance and heat intolerance. Genitourinary: Negative for enuresis and hematuria. Skin: Negative for color change, pallor and rash. Allergic/Immunologic: Negative for environmental allergies, food allergies and immunocompromised state. Neurological: Negative for syncope, facial asymmetry and numbness. Hematological: Negative for adenopathy. Does not bruise/bleed easily. Psychiatric/Behavioral: Negative for agitation, confusion and hallucinations. Objective Medications Current Outpatient Medications Medication Instructions amLODIPine (NORVASC) 10 MG tablet 1 tablet, Oral, 2 times daily Aspirin Low Dose 81 mg, Oral, Daily atorvastatin (LIPITOR) 40 mg, Oral, Nightly carvedilol (COREG) 6.25 mg, Oral, 2 times daily famotidine (PEPCID) 20 mg, Oral, Nightly glipiZIDE (GLUCOTROL) 10 MG tablet 1 tablet, Mouth/Oral Cavity, Every 12 hours levothyroxine (SYNTHROID, LEVOTHROID) 137 mcg, Oral, Every morning lisinopril (PRINIVIL,ZeSTRIL) 40 MG tablet 1 tablet, Oral, Daily metFORMIN (GLUCOPHAGE-XR) 500 MG 24 hr tablet 2 tablets, Oral, 2 times daily metoPROLOL TARTRATE (LOPRESSOR) 100 MG tablet 1 tablet, Oral, 2 times daily sodium bicarbonate 650 MG tablet 1 tablet, Mouth/Oral Cavity, Every 12 hours Trulicity 1.5 mg, Subcutaneous, Weekly No Known Allergies Physical Exam Vitals: 11/15/24 0600 11/15/24 0826 11/15/24 0910 11/15/24 1200 BP: (!) 126/58 (!) 126/58 129/76 BP Location: Right arm Right arm Patient Position: Sitting Sitting Pulse: 83 86 88 Resp: Temp: 96.8 ??F (36 ??C) (!) 95.1 ??F (35.1 ??C) TempSrc: Tympanic Tympanic SpO2: 95% 97% Weight: 85.2 kg (187 lb 13.3 oz) Height: Intake/Output Summary (Last 24 hours) at 11/15/2024 1457 Last data filed at 11/15/2024 1319 Gross per 24 hour Intake 480 ml Output 1050 ml Net -570 ml Physical Exam Constitutional: Appearance: Normal appearance. HENT: Head: Normocephalic and atraumatic. Right Ear: External ear normal. Left Ear: External ear normal. Nose: Nose normal. Mouth/Throat: Mouth: Mucous membranes are moist. Pharynx: Oropharynx is clear. Eyes: Conjunctiva/sclera: Conjunctivae normal. Pupils: Pupils are equal, round, and reactive to light. Cardiovascular: Rate and Rhythm: Normal rate and regular rhythm. Pulses: Radial pulses are 1+ on the right side. Dorsalis pedis pulses are 1+ on the right side and 1+ on the left side. Posterior tibial pulses are 1+ on the right side and 1+ on the left side. Heart sounds: Normal heart sounds. Pulmonary: Effort: Pulmonary effort is normal. Breath sounds: Normal breath sounds. Abdominal: General: There is no distension. Tenderness: There is no abdominal tenderness. There is no guarding. Musculoskeletal: Cervical back: Normal range of motion. Right lower leg: No edema. Left lower leg: No edema. Skin: General: Skin is warm and dry. Neurological: General: No focal deficit present. Mental Status: She is alert and oriented to person, place, and time. Mental status is at baseline. Psychiatric: Mood and Affect: Mood normal. Behavior: Behavior normal. Thought Content: Thought content normal. Judgment: Judgment normal. Mallampati Score: II (hard and soft palate, upper portion of tonsils anduvula visible) ASA PHYSICAL STATUS CLASSIFICATION SYSTEM ASA 3 - Patient with moderate systemic disease with functional limitations Relevant data reviewed: Labs, Notes, Meds Lab Results Component Value Date/Time HSTNT 70 (HH) 11/10/2024 03:00 PM EK11/13/24 Labs: HS Trop Lab Results Component Value Date/Time HSTNT 70 (HH) 11/10/2024 03:00 PM Notable labs are: No results found for: HEATHER , TNI Lab Results Component Value Date WBC 7.1 11/15/2024 HGB 9.9 (L) 11/15/2024 HCT 30.9 (L) 11/15/2024 PLT 306 11/15/2024 Lab Results Component Value Date NA 134 (L) 11/15/2024 K 3.8 11/15/2024 CL 96 (L) 11/15/2024 CO2 26 11/15/2024 CO2 24 11/12/2024 BUN 45 (H) 11/15/2024 CREAT 1.6 (H) 11/15/2024 GLUC 148 (H) 11/15/2024 GLUC 117 (H) 11/15/2024 Lab Results Component Value Date PTT 37 (H) 11/11/2024 LABPROT 14.1 (H) 11/11/2024 INR 1.3 11/11/2024 Imaging Studies: Echocardiogram Report reviewed 11/10/2024 echocardiogram Interpretation Summary Show Result Comparison Left ventricular systolic function is severely decreased. The quantitative EF by 2D Zimmerman biplaneis 25%. Right ventricular systolic function is normal. Valve structure and function are normal. There is no previous study for comparison in our system. Per note by Dr. Padilla, nuclear stress test on 09/23 demonstrates a positive fixed area of ischemia with hypokinesia over the mid inferior, basal inferior, and apical inferior wall. I was not able to locate this report. Time spent at the bedside reviewing previous records, performing H&P, physical assessment, and educated on cardiac Spanish Literature Professor procedure was approximately 60 minutes The following information is collected for participation in the [employer] CATH/PCI Registry (ACCNCDR) and is used for submission of data and may not be entirely consistent with the clinical evaluation. ACC-NCDR CathPCI V5 Collection Form History and Risk Factors Hypertension: Yes Dyslipidemia: Yes Diabetes mellitus: Yes Diabetes therapy: Insulin Hx of CAD: No Prior WI: No Prior CABG: No Prior diagnostic cath: No Prior PCI: No Currently on dialysis: No Cerebrovascular disease: No Peripheral arterial disease: Yes Tobacco use: Never Clinical frailty score: Vulnerable Pre-Procedure Information Prior heart failure: Yes NYHA Class: Class II Heart failure newly diagnosed: Yes Most recent heart failure type: Systolic Electrocardiac assessment method: ECG The assessment result was normal. Recent stress test performed: No Cardiac CTA performed: No Calcium score assessed: No LVEF assessed: Yes Most recent LVEF: 25% Indications and Presentation Indication(s) for mill labor supervisor visit: cardiomyopathy Chest pain symptom assessment: Asymptomatic Cardiovascular instability: No - Ventricular support was not required. PCI Procedure Staged PCI: No Pre-Procedure Mediations Aspirin: Yes THOMAS Inhibitor: Yes Angiotensin II receptor edi: No Beta edi: Yes Calcium channel blocking agent: Yes Long acting nitrate: No Non-statin: No Ranolazine: No Statin: Yes Sacubitril and valsartan: No Antiarrhythmic agent other: No Kexin type 9 inhibitor: No Sign: Gayatri Hopkins APRN 11/15/2024 2:57 PM Associated attestation - Carlos Herman MD - 11/16/2024 3:56 PM EDT Spanish Literature Professor attending The patient was interviewed and examined at the bedside in the Spanish Literature Professor holding area prior to her procedure this afternoon. The patient's medical history, physical exam, laboratory data, imaging studies, medications and allergies were all reviewed. Informed consent for left and right heart cath was obtained through a patient- centered, shared decision-making process. Summary: 54-year-old female with a history of type 2 diabetes, hypertension, hyperlipidemia, with recent admission in September to [facility] after being transferred from [facility] for respiratory failure requiring intubation. An echo demonstrated severely reduced EF of 20 to 30%. Was released home. Approximately a week ago she developed abrupt onset of dyspnea while going to the bathroom. Collapse while being transported to the ED on Nov 10. Required brief CPR and was intubated and subsequently extubated 2 days later on the . High-sensitivity troponin was minimally elevated. ECGdemonstrated sinus rhythm PVCs and left bundle branch block. An echo demonstrates EF of 25% normal RV size and systolic function. In addition she has a partial DVT in her right common femoral vein. She is now referred for left and right heart cath. Denies any chest pain recently. Denies any history of stroke, bleeding or need for upcoming invasive procedures. Access will be right radial and brachial with femoral backup. Risks, benefits and alternatives to cardiac catheterization, coronary angiography, potential PCI and moderate conscious sedation were discussed with the patient. Risks including but not limited to WI, stroke, bleeding/vascular complications, emergency cardiac surgery, adverse reaction to contrast or sedation, emergency defibrillation, endotracheal intubation, catheter induced complications such as dissections, acute kidney injury, anaphylactic or other types of reaction to contrast, need for prolonged dual antiplatelet therapy with heightened risk of bleeding and needing to defer elective surgery in the event of PCI was all discussed with the patient. The benefit of obtaining diagnostic andprognostic information and performing revascularization of appropriate anatomy for symptom relief, reduction in recurrent WI and mortality was discussed with the patient. The alternative of not proceeding with cath and medical therapy alone or additional noninvasive testing was discussed with the patient. She voiced understanding wishes to proceed ASA class III Mallampati: 1 * Magaly López, RD - 11/13/2024 11:28 AM EDTAssociated Order(s): IP CONSULT TO NUTRITION SERVICES [facility] Nutrition Note Visit Type: follow up assessment Reason for Dietitian Visit: at nutrition risk, consult. Reason for Admission: Cardiac arrest (HCC) Pertinent Medical History: No past medical history on file. Nutrition Diagnosis: Intake: Inadequate oral intake related to inability to consume adequate nutrients PO as evidenced by NPO requiring nutrition support Diagnosis Status: improvement shown/unresolved (pt extuabted, started on regular diet). Interventions/Recommendations: Food & Nutrient Delivery: 1. Recommend 2g Na, low fat diet 2. Add Ensure Max daily (chocolate) 3. Document PO intake 4. Trend weights weekly 5. Continue MVI with minerals daily 6. Recommend 200mg thiamine daily while on high dose lasix 7. Monitor BG trend and adjust insulin PRN - If BG trend consistently above 180mg/dL recommend adding CHO restriction as needed Nutrition Education/Counseling: Learner: patient Readiness: acceptance Method: Handout Explanation Topics: Low Sodium Low Fat Heart Healthy Diet, Oral Nutrition Supplement Use Response: verbalizes understanding Comprehension: Good Coordination of Nutrition Care: None at this time. Nutrition Plan for Discharge/Transfer: Heart healthy diet Nutrition Assessment: Consult received for wound. Chart reviewed, pt is 53yo F who suffered cardiac arrest, intubated. Pt is now extubated and remains in ICU approved for PO diet and tolerating bfast during interview. Will add 1 ONS to optimize protein intake and trend PO intake trend. Educated pt per above. She reports wt loss over the last few months due to eating healthier. NFPE performed and no wasting noted. Typical Food & Fluid Intake: Per mother at bedside, pt was following low sodium diet. 3 meals/day Factors Affecting Nutritional Intake: cognitive status/motor function, difficulty/impaired swallowing, respiratory difficulty/therapies Food Related Allergies: NKFA Cultural/Ethnic Preferences: None noted/reported. Food Insecurity Concerns: Patient unable to answer Weight: Wt Readings from Last 20 Encounters: 11/12/24 90.5 kg (199 lb 8.3 oz) Weights (last 20 days) Date/Time Weight Scale 11/12/24 0600 90.5 kg (199 lb 8.3 oz) bed 11/11/24 0600 92.1 kg (203 lb 0.7 oz) bed 11/10/24 1356 94.7 kg (208 lb 12.4 oz) bed 11/10/24 0632 90.5 kg (199 lb 8.3 oz) -- Nutrition Physical Findings: Physical Appearance: obese Muscle Wasting: None Adipose Wasting: None Gastrointestinal: (LBM 11/13) Enteral Access Devices: (removed) Skin: pressure injury (PI medial coccyx stage 1) Wound Documentation Reviewed: yes Labs: BUN 38, Cr 1.5, gluc 116, eGFR 41, POC gluc 114-162 x 24hr Diagnostics: reviewed Medications: Abx, pepcid, lasix 40mg BID, synthroid, MVI, senna-s Estimated Daily Energy and Protein Needs: Energy Needs: 1810 - 2263 Kcals/day (20 - 25 Kcals/kg) based on 90.5 kg (199 lb 8.3 oz) Protein Needs: 71 - 95 gm, (1.5 - 2.0g/kg) based on 47.6 kg (105 lb) (IBW) Fluids: 1800 (or per MD)ml based on RECHECKER Method Estimated/Assessed Carbohydrates Needs: N/A on TF Current Diet: Diet Regular Intake Compared to Estimated Needs: Energy Intake: other (see comments) (extubated, diet started today) x 3 days Protein Intake: other (see comments) x 3 days Fluid Intake: other (see comments) (1565ml x24hr per I/O) Educational Needs Assessment: Assessed patient's learning needs. Barriers to Education: None noted at this time. Monitoring & Evaluation: Goals to be Achieved by Next Assessment: PO intake at least 75% of meals and ONS Pt tolerating diet BG trend between 65-180mg/dL Monitoring/Evaluation: RD/DTR will monitor and evaluate nutrition plan of care and provide additional interventions and recommendations based on nutrition/clinical status. Sign: Magaly López RD 11/13/2024 11:28 AM * Marilyn Robertson RN - 11/11/2024 2:19 PM EDT Images from the original note were not included. [facility] Wound Care Consult Visit Date: 11/11/2024 Patient Name: Marli Hanna Date of : 1970 Reason for Consult: initial Wound Team Summary Assessment: Coccyx with Stage 1 pressure injury - intact non-blanching erythema. Surrounding mild erythema. Of note, patient had a cardiac arrest prior to admission. Cloth Colors Examiner scan shows an area of thermal anomaly (warmer) at the area of the coccyx. This could indicate pre-visual skin damage. Please re-consultWound team if any further skin breakdown is noted. Wound Team Plan: Topical treatment recommendations provided , please re consult if further recommendations are needed. Recommendations: 1. Routine interventions per skin Injury prevention and treatment interventions per protocol: Low air loss bed, dry flow pads under patient, Q2 turns, waffle cushion when OOB to chair, limit sit times to 1 hr (may extend to 2 hours if no sacral or posterior wounds) with frequent weight shifts. Elevate heels off bed with pillows or boots. 2. Optimize nutrition per RD recommendations. Glucose control. 3. Progress mobility per MDs orders. 4. Protective sacral foam dressing q3d and prn, remove and reapply for twice daily skin assessments Offloading: PB bed, wedges and TruVue boots Wound History: 54 year old female admitted s/p cardiac arrest. Wound Team is consulted for skin alteration noted on admission. Pertinent Labs: Albumin Date Value Ref Range Status 11/11/2024 3.5 3.5 - 5.0 g/dL Final No results found for: PREALBUMIN Wound Assessment: Pressure Injury (Adult, Obstetrics) 11/10/24 1500 medial coccyx stage I (Active) Present on Admission (see row info) yes 11/11/24 1400 Current Pressure Injury Stage stage I 11/11/24 1400 Dressing Appearance dry;intact 11/11/24 1400 Pressure Injury Appearance reddened 11/11/24 1400 Heidi Wound Area hyperpigmentation 11/11/24 1400 Length (cm) 7.5 cm 11/11/24 1400 Width (cm) 2 cm 11/11/24 1400 Depth (cm) 0 cm 11/11/24 1400 Tunneling (Depth/Location) 0 11/11/24 1400 Undermining (Depth/Location) 0 11/11/24 1400 Wound Surface Area (cm^2) 15 cm^2 11/11/24 1400 Volume (cm^3) 0 cm^3 11/11/24 1400 Drainage Amount none 11/11/24 1400 Dressing foam 11/11/24 1400 Number of days: 0 GI/ Management Strategies: Foleey and Driflow pads in place. Marilyn XIAO,, RN 11/11/2024 2:19 PM * Adelaida Ghosh, RD - 11/10/2024 3:14 PM EDTAssociated Order(s): IP CONSULT TO NUTRITION SERVICES [facility] Nutrition Note Visit Type: initial assessment Reason for Dietitian Visit: consult, tube feeding. Reason for Admission: Cardiac arrest (HCC) Pertinent Medical History: Cardiac arrest with new diagnosis of HF in September 2024 Nutrition Diagnosis: Intake: Inadequate oral intake related to inability to consume adequate nutrients PO as evidenced by NPO requiring nutrition support Diagnosis Status: (New). Interventions/Recommendations: Food & Nutrient Delivery: 1. Recommend Osmolite 1.5 with goal rate of 35 mL/hr and 3 oz ProsourceTF BID - At goal provides 1420 kcal, 97 gm protein, 640 mL FW without flushes daily 2. Minimum 30 mL FW flushes Q4hrs, additional hydration per team 3. Monitor TF tolerance 4. Trend weights weekly 5. Recommend MVI with minerals daily 6. Monitor lytes, replete PRN Nutrition Education/Counseling: None at this time Coordination of Nutrition Care: Collaboration with Edel Sheth PA-C Nutrition Plan for Discharge/Transfer: TBD Nutrition Assessment: 54 YO F admitted from OSH via [facility] status post cardiac arrest requiring intubation this morning. TTM ruled out. Currently weaned of pressors and Propofol. Met with pt and mother at bedside, pt able to nod head yes and no while on vent. Reports pt trying to lose weight prior to admission by following diet that she was receiving during previous hospitalization, was using it to gauge portion size. NFPE performed, no depletion noted. Recommend TF regimen as above to best provide estimated needs. Typical Food & Fluid Intake: Per mother at bedside, pt was following low sodium diet. 3 meals/day Factors Affecting Nutritional Intake: cognitive status/motor function, difficulty/impaired swallowing, respiratory difficulty/therapies Food Related Allergies: NKFA Cultural/Ethnic Preferences: None noted/reported. Food Insecurity Concerns: None reported Weight: UBW 192-194 lb per mother Weights (last 5 days) Date/Time Weight Scale 11/10/24 1356 94.7 kg (208 lb 12.4 oz) bed 11/10/24 0632 90.5 kg (199 lb 8.3 oz) -- Wt Readings from Last 10 Encounters: 11/10/24 94.7 kg (208 lb 12.4 oz) Nutrition Physical Findings: Physical Appearance: obese, on ventilator support Muscle Wasting: None noted Adipose Wasting: None noted Gastrointestinal: feeding tube, other (see comments) (LBM SPEECH LANGUAGE SPECIALIST) Enteral Access Devices: orogastric tube (AB XR confirmed 11/10) Skin: (WNL) Wound Documentation Reviewed: yes Labs: BUN 31 Cr 1.8 GFR 33 POC glucose 177-237 x 24 hrs Diagnostics: reviewed Medications: Insulin ordered, Senna ordered, Abx regimen ordered Estimated Daily Energy and Protein Needs: Energy Needs: 1136 - 1515 Kcals/day ( (12) - (16) Kcals/kg) based on 94.7 kg (208 lb 12.4 oz) Protein Needs: 86 - 105 gm, (1.8 - 2.2g/kg) based on 47.6 kg (105 lb) (IBW) Fluids: 1300ml based on RECHECKER Method (or per MD/team) Estimated/Assessed Carbohydrates Needs: N/A on TF Current Diet: Diet, Tube Feeding, No Tray Continuous; OG Tube; Osmolite 1.5; 10 mL; 40 mL/hr; 10; q3h; Water; Every 4 hours; 30 cc; NPO Intake Compared to Estimated Needs: Energy Intake: not meeting needs x (less than 1) days Protein Intake: not meeting needs x (less than 1) days Fluid Intake: other (see comments) (1158 mL so far today) Educational Needs Assessment: Assessed patient's learning needs. Barriers to Education: Clinical Condition Monitoring & Evaluation: Goals to be Achieved by Next Assessment: 1. Receive at least 80% of recommended TF regimen 2. Tolerate TF at goal Monitoring/Evaluation: RD/DTR will monitor and evaluate nutrition plan of care and provide additional interventions and recommendations based on nutrition/clinical status. Sign: Adelaida Ghosh RD 11/10/2024 3:22 PM * Nan Dietz MD - 11/10/2024 1:46 PM EDTAssociated Order(s): IP CONSULT TO CARDIOLOGY CARDIOLOGY FELLOWS SERVICE CONSULT NOTE Date of Consult: 11/10/2024 Patient's Primary Care Physician: No primary care provider on file. Reason for Consultation: s/p arrest ; HFrEF exacerbation Admit Date: 11/10/2024 6:20 AM Assessment & Plan 54-year-old female with a history of obesity, hypothyroidism, CKD, hypertension, hyperlipidemia, and recently diagnosed HFrEF (25%) secondary to a suspected prior PEA cardiac arrest in September 2024 who was transferred from outside hospital following an unresponsive episode, concerning for an another cardiac arrest vs respiratory arrest. Family said patient collapsed in car on arrival to ED; unclear if she had true loss of pulses and what initial rhythm was. Upon transfer to , she was deemed not a candidate for TTM; cardiology have been consulted for further recommendations regarding recent cardiac arrest. Recurrent Collapse - unclear if true loss of pulses or electrical activity; likely respiratory arrest Acute decompensated heart failure History of recently diagnosed HFrEF (25%) History of chest pain prior to initial arrest (Sep 2024) Chronic Kidney Disease stage 3 Hypertension Hyperlipidemia Hypothyroidism Obesity Diabetes mellitus Likely undiagnosed obstructive sleep apnea TTE 11/10/2024: Normal LV size, eccentric hypertrophy, severely decreased LV function, global anginal strain is -6.3%, global hypokinesis, normal RV size and function, normal atria, no valvular disease, no pericardial effusion. LVIDD 5.6 cm WNL; LVOT VTI 16.1 cm Although patient does not have evident pitting edema and her JVD is difficult to assess, her elevated BNP, classical history for dyspnea with pulmonary edema, chest x-ray suggesting fluid overload, and suspicion for respiratory arrest suggest that patient likely has acute decompensated heart failure. Especially since she was not taking a diuretic at home. Family also mentioned that patient frequently snores at night and sometimes has apneic episodes briefly-she likely had undiagnosed FRANCISCO as well. Considering these factors, we suspect that her 2 sudden collapses were likely respiratory arrests. Plan - Please give another dose of IV lasix 40mg today. Would recommend starting IV Lasix 40 mg twice daily tomorrow morning as well. - Please monitor her urine output strictly - Would hold off on GDMT for now. We can slowly reduce depending on how patient improves - Given recent diagnosis of HFrEF, would advise checking iron, transferrin, ferritin, HIV, hepatitis B and C as part of new reduced heart failure workup - Please maintain on telemetry. Monitor BMP/mag closely; please aim for K 4< and Mg 2<. She has an elevated creatinine of 1.8-may be a baseline but may also be GILBERTO on CKD (no prior data available) - Please trend troponin to plateau / downtrend - Please follow-up bilateral DVT studies. Given that patient has presented in the setting of what seems to be due to respiratory arrests, we would advise the team to consider PE as a possible differential. However, her TTE today did not show any evidence of right heart strain. Agree with starting with bilateral duplex scans of the legs first. -Per patient's history and report of prior abnormal stress test for fixed ischemia in the mid inferior, basal inferior, and apical inferior haq, patient likely will need further ischemic evaluation- we will discuss further whether needs to be inpatient or outpatient. - Please check A1c Patient seen with Dr. Giraldo. The plan is considered preliminary until co- signed by the attendingphysician. Subjective Background: 54-year-old female with a history of obesity, hypothyroidism, CKD, hypertension, hyperlipidemia, and recently diagnosed HFrEF (25%) secondary to a suspected prior PEA cardiac arrest in September 2024 who was transferred from outside hospital following an unresponsive episode, concerning for an another cardiac arrest vs respiratory arrest. History obtained primarily from chart review and collateral history from patient mother and son by bedside. In September 2024, she went to an outside hospital after she was acutely short of breath and felt like she was going to . Per mother, immediately upon arrival, patient became unresponsive.Had CPR ; chart documentation details PEA arrest secondary to likely respiratory arrest. Patient was diuresed that admission; she was also found to have a new EF of 20-25%. In the chart, she is alsonoted to have had a nuclear stress test on 09/23 which showed a positive fixed area of ischemia withhypokinesia over the mid inferior, basal inferior, and apical inferior wall. She was discharged on amlodipine 5 mg daily, aspirin 81 mg daily, Lipitor 40 mg daily, Coreg 6.25 mg daily, Trulicity, andlevothyroxine 0.137 mg daily. She was not discharged with a diuretic. Patient was planned to have outpatient cardiology appointment (family stated patient had an upcoming appointment at [facility] this week close) and also being planned for future outpatient cath and a Zio patch. However, yesterday night, patient called her mother around 10 PM saying again that she felt like she could not breathe and was going to . On arrival, mother noted that patient was wheezing significantly and very short of breath. She seemed to also be foaming at the mouth with bubbly sputum. She immediately drove the patient to the outside hospital. However, patient became unresponsive in the parking lot per documentation. Unclear if loss of pulses and what initial rhythm may have been. Seemsto have likely been a respiratory arrest-patient quickly achieved ROSC after approximately 4 minutes of CPR. When she was being intubated, vomit was noted in her area intubation. Per documentation, patient was following commands and alert just before intubation. She was transferred to [facility] for CCU evaluation and further care. In our ED, patient febrile 100.6, pulse between 80-90, respiratory rate 16, blood pressure normotensive 119/58. Labs on arrival: Hb 10.5, plts 361, na 137, K 4, cl 104, co2 19, Cr 1.8, ca 8.5, ALT 54, trop 79, probnp 2385, TSH 2.76. Latest ABG pH 7.24, CO2 51, O2 65, bicarb 23. Chest x-ray shows diffuse pulmonary congestion. She was deemed not to be a TTM candidate. Evaluation: At the time of our evaluation, patient was off pressors. She was intubated but awake and following commands and trying to engage in the conversation. Family provided the history above. Her son also mentioned that the patient was having intermittent tight chest pain episodes a few months prior to the initial unresponsive episode. Review of Systems The review of systems was negative, other than that stated above. Objective Past History No past medical history on file. No past surgical history on file. No family history on file. Medications Prior to Admission Medications: Medications Prior to Admission Medication Sig Dispense Refill Last Dose glipiZIDE (GLUCOTROL) 10 MG tablet 1 tablet (10 mg total) by Mouth/Oral Cavity route every 12 hours. sodium bicarbonate 650 MG tablet 1 tablet (650 mg total) by Mouth/Oral Cavity route every 12 hours. amLODIPine (NORVASC) 10 MG tablet Take 1 tablet (10 mg total) by mouth 2 times a day. Aspirin Low Dose 81 MG EC tablet Take 1 tablet (81 mg total) by mouth daily. atorvastatin (LIPITOR) 40 MG tablet Take 1 tablet (40 mg total) by mouth nightly. carvedilol (COREG) 6.25 MG tablet Take 1 tablet (6.25 mg total) by mouth 2 times a day. famotidine (PEPCID) 20 MG tablet Take 1 tablet (20 mg total) by mouth nightly. levothyroxine (SYNTHROID, LEVOTHROID) 137 MCG tablet Take 137 mcg by mouth every morning. lisinopril (PRINIVIL,ZeSTRIL) 40 MG tablet Take 1 tablet (40 mg total) by mouth daily. metFORMIN (GLUCOPHAGE-XR) 500 MG 24 hr tablet Take 2 tablets (1,000 mg total) by mouth 2 times a day. metoPROLOL TARTRATE (LOPRESSOR) 100 MG tablet Take 1 tablet (100 mg total) by mouth 2 times a day. Trulicity 1.5 MG/0.5ML prefilled pen injection Inject 1.5 mg under the skin once a week. Current Medications / MAR: Medications Scheduled Medication Ordered Dose/Rate, Route, Frequency Last Action azithromycin (ZITHROMAX) 500 mg in sodium chloride (NS) 0.9 % 250 mL IVPB-WTD 500 mg, IV, Q24H Stopped, 11/10 1137 cefepime (MAXIPIME) 2 g in sodium chloride-MBP (NS) 100 mL IVPB-MBP 2 g, IV, Q12H Stopped, 11/10 1137 chlorhexidine gluconate 2 % wipes - central line CHG application No Dose/Rate, TOP, Daily Ordered heparin (porcine) 5000 unit/mL injection 5,000 Units 5,000 Units, SC, Q8H MLIO Ordered senna-docusate (SENNA-S) 8.6-50 MG tablet 2 tablet 2 tablet, PO, Nightly Ordered vancomycin (VANCOCIN) IV dosing PER PHARMACY PROTOCOL No Dose/Rate, Protocol, Pharmacy Protocol Orders Ordered Continuous Medication Ordered Dose/Rate, Route, Frequency Last Action norepinephrine (LEVOPHED) IV infusion 8 mg in 250 mL NS (premix) 2-60 mcg/min, IV, Titrated Rate/Dose Change, 4 mcg/min at 11/10 1342 VASOpressin (VASOSTRICT) 20 units in sodium chloride (NS) 0.9 % 50 mL IV infusion-WTD Shock 0.03 Units/min, IV, Continuous Stopped, 11/10 1331 PRN Medication Ordered Dose/Rate, Route, Frequency Last Action bisacodyl (DULCOLAX) suppository 10 mg 10 mg, RE, Daily PRN Ordered HYDROmorphone (DILAUDID) 2 mg/mL injection 1 mg 1 mg, IV, Q2H PRN Given, 1 mg at 11/10 1145 lactulose (ENULOSE) 10 gm/15 mL solution 20 g 30 mL, PO, Q4H PRN Ordered naloxone (NARCAN) 0.4 mg/mL injection 0.4 mg 0.4 mg, IV, Q5 Min PRN Ordered perflutren lipid microsphere (DEFINITY) 1.3 mL in sodium chloride (NS) 0.9 % 10 mL 0.5-8 mL, IV, Once in imaging Ordered Allergies No Known Allergies Vital Signs Pulse:96,Resp:17,BP:131/67,SpO2:93 %,Weight:90.5 kg (199 lb 8.3 oz) Temp Last 24 hrs: Temp Min: 96.6 ??F (35.9 ??C) Max: 100.6 ??F (38.1 ??C) Intake/Output Summary (Last 24 hours) at 11/10/2024 1347 Last data filed at 11/10/2024 1340 Gross per 24 hour Intake 1158.38 ml Output 1040 ml Net 118.38 ml Physical Examination General: Well-developed. Well-nourished. Resting comfortably. Intubated. Obese. HEENT: Normocephalic, atraumatic. PERRLA. EOMI. Mucous membranes moist. Neck: No JVP. Cardiovascular: Regular rate. Regular rhythm. No murmrs, gallops, or rubs. Respiratory: Adequate respiratory effort. No wheezes, rhonchi, or rales. Abdomen: Soft. Nondistended. Nontender. No rigidity or guarding. Normoactive bowel sounds. Extremities: No sacral or bilateral lower extremity edema. Skin: Warm, dry. Neurologic: Awake. Alert. No gross focal deficits. Moves all four extremities spontaneously. Relevant Data Reviewed: Results from last 7 days Lab Units 11/10/24 1325 11/10/24 0915 11/10/24 0750 11/10/24 0642 SODIUM mmol/L -- -- -- 137 POTASSIUM mmol/L -- -- -- 4.0 CHLORIDE mmol/L -- -- -- 104 CO2 mmol/L -- -- -- 19* CO2, TOTAL mmol/L -- -- 20* -- BUN mg/dL -- -- -- 31* CREATININE mg/dL -- -- -- 1.8* CALCIUM mg/dL -- -- -- 8.5* GLUCOSE mg/dL -- -- -- 217* GLUCOSE, POC mg/dL 198* 177* -- -- EGFR -- -- -- 33* ALBUMIN g/dL -- -- -- 3.4* PROTEIN, TOTAL g/dL -- -- -- 7.1 BILIRUBIN TOTAL mg/dL -- -- -- 0.6 ALK PHOS U/L -- -- -- 109 ALT U/L -- -- -- 54* AST U/L -- -- -- 46 No results found for: MG Results from last 7 days Lab Units 11/10/24 0642 WHITE BLOOD CELL COUNT Thou/uL 13.2* HEMOGLOBIN g/dL 10.5* HEMATOCRIT % 33.7* PLATELET COUNT Thou/uL 361 NEUTROS PCT % 71.7 LYMPHS PCT % 17.6 MONOS PCT % 9.5 EOS PCT % 0.1 BASOS PCT % 0.3 Lab Results Component Value Date HSTNT 79 () 11/10/2024 Lab Results Component Value Date PROBNP 2,385 (H) 11/10/2024 No results found for: HGBA1C No results found for: CHOL No results found for: HDL No results found for: LDLCALC Lab Results Component Value Date TRIG 210 (H) 11/10/2024 No results found for: CHOLHDL ECG: TELE: Imaging Studies: Echocardiogram (TTE) Comprehensive (Contrast PRN) Result Date: 11/10/2024 Left ventricular systolic function is severely decreased. The quantitative EF by 2D Zimmerman biplane is 25%. Right ventricular systolic function is normal. Valve structure and function are normal. There is no previous study for comparison in our system. Plan as discussed with attending. Sign: Nan Dietz MD Internal Medicine PGY-2 [facility] 11/10/2024 1:47 PM Available via [employer] Text 24/03 at Crnp Consult Service Associated attestation - Yung Giraldo MD - 11/11/2024 1:52 PM EDT Ms. Hanna was seen and examined with Dr. Dietz and I agree with her assessment and plan. The etiology of this patient's collapse and possible cardiac arrests are unclear. This history obtained from her mother is that both episodes were associated with difficulty breathing and the production of white foamy sputum suggesting that both episodes were related to volume overload and sudden pulmonaryedema. Sudden pulmonary edema can be related to cardiac dysfunction or sudden hypertension from renal artery stenosis. Her ejection fraction is reduced to 25%. Our initial approach will be to diureseher aggressively so that we can get her off the ventilator. She will then need a full cardiac workup to determine and treat any possible cardiac causes of her episodes. * Tammy Larsen MD - 11/10/2024 7:37 AM EDT CCU post cardiac arrest targeted temperature management (TTM) evaluation Brief history: 54-year-old female with a history of CKD, hypertension hyperlipidemia and recent cardiomyopathy whopresents with PEA cardiac arrest transferred from [place]. Inclusion Criteria: Adult survivors of cardiac arrest with ROSC and high suspicion of cardiac event etiology: Yes Comatose (defined as Leo Coma Scale/motor score less than or equal to 5: the patient does not obey commands or have purposeful movements): Yes Intubated on mechanical ventilation: Yes Systolic blood pressure greater than 90 mmHg (with or without fluids and vasopressors): Yes Absolute Contraindications: Greater than 8 hours since ROSC: No Combs Motor score 6 (the patient obeys commands): Yes Poor baseline cognitive status: No Intracranial bleed: No Evidence of brainstem herniation (irreversible brain damage) on brain imaging: No The combination of generalized cerebral edema (as evidenced by sulci effacement and increased attenuation in the basal cisterns and subarachnoid spaces) AND loss of dan and white matter differentiation: No DNR/DNI status: No Uncontrollable bleeding: No Hemodynamic instability: Systolic BP less than 90 or mean arterial pressure less than 70 mmHg with the use of three or more vasopressor agents: No Relative Contraindications: Significant risk of bleeding: No The time from the initial arrest to the time of ROSC is 30 minutes or greater: No Septic shock: No : No PEA/hypoxic arrest, asystole with suspicion of non-cardiac etiology: Yes Unwitnessed or unknown down time: No Active Cancer: No : No Recommendation: She will not require TTM in the CCU given that she had purposeful movements and a PEA arrest. Parminder was discussed with attending Dr. Singleton documented in this encounter ED Notes * Sarah Flor RN - 11/10/2024 10:21 AM EDT Icu at bedside Sarah Flor RN 11/10/24 1021 * Dylon Noble MD - 11/10/2024 7:59 AM EDT History Chief Complaint Patient presents with Cardiopulmonary Arrest HPI This is a 54-year-old transfer [facility] post ROSC intubated postarrest patient., Patient apparently was recently admitted for similar presentation after PEA likely respiratory arrest. She hadregained completely normal neurologic function, and had shortness of breath earlier yesterday, arrested on the way to the hospital, CPR was started immediately in the parking lot at outside facility,1 round of CPR was enough to get ROSC, now intubated and sedated on propofol, requiring pressors now. Apparently patient was making purposeful movements before sedation was started and after ROSC. Cardiopulmonary Arrest No past medical history on file. No past surgical history on file. No family history on file. Review of Systems All other systems negative x 10 except where noted in HPI or above Physical Exam BP 129/77 (BP Location: Left arm, Patient Position: Lying) Pulse 82 Temp 100 ??F (37.8 ??C) (Bladder) Resp 18 Wt 90.5 kg (199 lb 8.3 oz) SpO2 100% Physical Exam Constitutional: Patient is intubated and sedated HENT: Head: Normocephalic and atraumatic. Nose: Nose normal. Mouth/Throat: Mouth: Mucous membranes are moist. Cardiovascular: Rate and Rhythm: Normal rate and regular rhythm. Pulses: Normal pulses. Heart sounds: Normal heart sounds. Pulmonary: Rales and coarse breath sounds bilaterally. Abdominal: Abdomen is distended, no tenderness or visual abnormalities noted. Musculoskeletal: General: Normal range of motion. Skin: General: Skin is warm. Capillary Refill: Capillary refill takes less than 2 seconds. Neurological: Patient is currently sedated Psychiatric: Mood and Affect: Mood normal. ED Course Final diagnoses: Acute respiratory failure (HCC) Cardiac arrest (HCC) Cardiomyopathy (HCC) Shock (HCC) Indwelling catheter present on admission Left bundle branch block (LBBB) MDM: Number and Complexity of Problems Addressed MDM Detail: Postarrest patient, stable vitals on norepinephrine, we are working on transferring thepatient over to our vent, patient currently receiving propofol at 50, norepinephrine at 0.34 mcg/kg. Patient was getting Versed at the outside hospital infusion, got pushed doses in route. Patient with minimal reflexes now, coarse breath sounds bilaterally, satting normally current vent settings. Cardiology was contacted, rules out for TTM, MICU to admit postarrest patient likely in the setting of respiratory arrest/heart failure exacerbation/pulmonary process. Initial chest x-ray noted left mainstem, will back off and reposition ET tube, will get basic labs, ABG to assess ventilatory status,repeat EKG. This did not show any clear new ischemic changes. To be admitted to MICU Amount and Complexity of Data Dr. Silva Risk of Complications and/or Morbidity or Mortality of Patient Management Critical Care Thomas Noble MD Emergency Medicine, PGY3 [employer] Preferred ECG Independent Visualization Date and Time Interpretation ECG Findings Previous ECG Reviewed Comparison to Electronic Interpretation User 11/10/24 0638 Sinus rhythm 84 normal axis left bundle branch block unifocal PVCs no definitive injury pattern LBBB;nonspecific ST-T wave abnormalities PVCs unavailable -- KO MAN Archive for reference only CR MAN Archive for reference only CR XR Chest 1 view-Portable (Results Pending) Echocardiogram (TTE) Comprehensive (Contrast PRN) (Results Pending) Face to Face Restraint Evaluation Date and Time I have personally seen and evaluated the restrained patient at this time User 11/10/24 0725 [id number] MARIA A Noble MD Resident 11/10/24 0812 Associated attestation - Satnam Silva MD - 11/11/2024 1:14 PM EDT I personally saw the patient and performed a substantive portion of the visit including all aspectsof the medical decision-making. I reviewed the AP's or resident's findings, supervised the management of the patient, made/approved the management plan and take responsibility for the patient management. Further, I agree with the controlled substance prescriptions(s) and/or order(s) as written by the AP, if any. My note reflects my personal findings on my history and exam. * Sarah Flor RN - 11/10/2024 7:09 AM EDT I have acknowledged/accepted the hand off of care for this patient from [facility]. We have verified the telemetry order, leads are on the patient, alarms on, and a NS rhythm. Sarah Flor RN 11/10/24 0709 * Satnam Silva MD - 11/10/2024 6:28 AM EDT ATTENDING ATTESTATION NOTE: I SAW THIS PATIENT TOGETHER WITH THE RESIDENT PHYSICIAN, PHYSICIAN PHOTO MANAGER OR ADVANCED PRACTITIONER NURSE. I PERSONALLY SAW THE PATIENT AND PERFORMED A SUBSTANTIVE PORTION OF THE VISIT INCLUDING ALL ASPECTS OF THE MEDICAL DECISION MAKING. I REVIEWED THE AP'S OR RESIDENT'S FINDINGS, SUPERVISED THE MANAGEMENT PLAN AND TAKE RESPONSIBILITY FOR THE PATIENT MANAGEMENT. FURTHER, I AGREE WITH THE CONTROLLED SUBSTANCE PRESCRIPTION(S) AND/OR ORDER(S) WRITTEN BY THE AP IF ANY. MY NOTE REFLECTS MY PERSONAL FINDINGS ON MY HISTORY AND EXAM. DATE: 11/10/2024 PATIENT'S PRIMARY CARE PHYSICIAN: No primary care provider on file. HISTORY OF PRESENT ILLNESS: 54 female transfer from [place] by [facility] reported cardiac pulmonary renal history prior cardiac arrest with resuscitation leading to hospital discharge reported acute shortness of breath by private vehicle to [facility] upon arrival to the emergency department was found in her vehicle in cardiac arrest immediate CPR initiated full workup ACLS with spontaneous return of circulation placed on pressors propofol transferred here for further evaluation. Will review if she received any defibrillation cardioversion. On arrival is GCS 3 T on propofol pressors. LOCATION: Systemic DURATION: Acutely on Friday PROVOCATION: Reported shortness of breath respiratory failure cardiac arrest RELIEVING FACTORS: Currently GCS 3 T on pressors propofol intubated WORSENING FACTORS: Remains critically ill respiratory cardiac failure PRIOR EPISODES: Reportedly had a prior cardiac arrest ROS: Limited due to critical state ALL OF SYSTEMS x10 NEGATIVE EXCEPT WHERE DOCUMENTED ABOVE. ALLERGY: No Known Allergies MEDS: Scheduled Meds: chlorhexidine gluconate, , Topical, Daily senna-docusate, 2 tablet, Oral, Nightly Continuous Infusions: norepinephrine (LEVOPHED) IV infusion, 2-60 mcg/min, Last Rate: 26 mcg/min (11/10/24 0738) PRN Meds: bisacodyl HYDROmorphone lactulose naloxone PAST MEDICAL HISTORY: No past medical history on file. PAST SURGICAL HISTORY: No past surgical history on file. FAMILY HISTORY: Unknown SOCIAL HISTORY: Unknown OCCUPATION: Unknown IMMUNIZATION: Unknown LAST MENSTRUAL PERIOD: No LMP recorded. DOMESTIC VIOLENCE: Unknown TRIAGE AND CURRENT VITAL SIGNS REVIEWED. PULSE:82,RESP:18,BP:129/77,SpO2:100 %,WEIGHT:90.5 kg (199 lb 8.3 oz) TEMP: Temp Min: 96.6 ??F (35.9 ??C) Max: 100 ??F (37.8 ??C) I&O: No intake or output data in the 24 hours ending 11/10/24 0756 GENERAL: Larger habitus critically ill on the vent GCS 3 T HEENT: Pupils fixed 2 mm no pallor or icterus secured endotracheal orogastric tube moist mucous membranes hirsute face NECK: Large neck trach midline no obvious JVD CHEST: Diminished bases on the vent occasional crackles S1-S2 quiet no obvious murmur occasional skipped beat ABDOMEN: Protuberant abdomen no definitive pulsatile mass or obvious guarding BACK: No midline step-off PELVIS: Intact indwelling catheter in place right femoral TLC in place no external bleeding noted internal vaginal rectal deferred EXTREMITIES: 2+ carotid femoral weak but present peripheral pulses delayed cap refill nonpitting edema LYMPH: SKIN: Cool periphery warm Central no obvious rash NEURO: Absent corneal absent gag PSYCH: Unknown MDM: 54 female status post respiratory cardiac arrest transfer from [facility] spontaneous return of circulation currently on propofol norepinephrine critically ill GCS 3 T. Per [facility] crew has had a prior cardiac arrest in the past where she did leave the hospital. Heart rate 90 saturation 94% on the vent larger habitus fixed miotic pupils moist mucous membranes secured endotracheal tube diminished lung bases with occasional crackles quiet but present heart sounds with occasional skipped beat pulses in all extremities although decreased with delayed cap refill absent corneal and gag. Plan: Continued aggressive supportive care titrate norepinephrine continue propofol while on the vent continuous cardiac oxygen monitoring repeat chest x-ray ABG ECG labs--respiratory cardiac arrestwith spontaneous return of circulation--will need ICU admission rule out pneumothorax arrhythmia hypoxemia treatable infection cardiac ischemia and disease--await family arrival critical patient DIAGNOSIS: 1. Acute respiratory failure (HCC) 2. Cardiac arrest (HCC) 3. Cardiomyopathy (HCC) 4. Shock (HCC) 5. Indwelling catheter present on admission 6. Left bundle branch block (LBBB) DISPOSITION: Admission critical ICU EKG PRELIMINARY INTERPRETATION MY INDEPENDENT IMPRESSION: Sinus rhythm 84 normal axis unifocal PVCsleft bundle branch block no definitive injury pattern--old to compare with RADIOLOGY PRELIMINARY INTERPRETATION MY INDEPENDENT IMPRESSION: AP chest visible deep left mainstemintubation will be retracted whitened out right lung coarse bilateral breath markings consistent with pulmonary edema with large cardiac silhouette cannot rule out superimposed pneumonia no obvious pneumothorax RADIOLOGY OFFICIAL: MAN Archive for reference only CR Result Date: 11/10/2024 This order has been auto-finalized and does not contain a result. MAN Archive for reference only CR Result Date: 11/10/2024 This order has been auto-finalized and does not contain a result. PAST RECORDS REVIEWED: Outside visits for cardiomyopathy CKD nephrology PCP HISTORY OBTAINED FROM: [employer] crew outside records epic COMORBIDITY INTEGRATED INTO DIFFERENTIAL DIAGNOSIS: Respiratory failure respiratory arrest cardiac arrest with spontaneous return of circulation transfer from [place] on pressors and propofol GCS 3 T CONSIDERED DIAGNOSTIC TESTING AND PHARMACOLOGY: Continuous cardiac oxygen monitoring ABG chest x-ray repeat labs ECG ICU level of care SOC[employer]ING CARE: Has a [facility] address will confirm if she has a PCP upon disposition per [employer] crew family is coming to the hospital including her mother CTPMP REVIEWED: Tylenol 3 prescription December 2022 CONSULTATION DISCUSSION: Cardiology medical ICU CRITICAL CARE TIME: 45 minutes SATNAM SILVA MD MPH ATTENDING PHYSICIAN EMERGENCY MEDICINE/MEDICAL TOXICOLOGY 11/10/2024 7:56 AM Satnam Silva MD 11/11/24 1314 * Carlyn Andre RN - 11/10/2024 6:25 AM EDT Pt to [facility] as med alert tx from [facility]. Recent cardiac arrest w/ CHF dx in September , EF <20%. Today, feeling unwell at home, episodes of SOB. Family went to check on pt and found her unresponsive. Family drove to hospital and found to be asystolic by team at [facility]. Given epi, ROSC. Pt reported to have purposeful movement at [facility] following intubation, grabbing at tube, turning head. +PNA at OSH/also found to be febrile. Arrives on ventilator, appears to be in NAD. VSS. Carlyn Andre RN 11/10/24 0628 documented in this encounter Miscellaneous Notes * Case Coordination-Payor Communication - Nereyda Mullins - 11/18/2024 11:32 AM EDT PATIENT DISCHARGED 11/18/2024 Please fax authorization determination to [phone] or call [phone]. * Plan of Care - Hannah Abdul RN - 11/18/2024 11:32 AM EDT [facility] Case Coordination Durable Medical Equipment Order and Medically Necessity Note Patient Name: Marli Hanna : 1970 Patient Height: Ht Readings from Last 1 Encounters: 11/10/24 1.549 m (5' 1 ) Patient Weight: Wt Readings from Last 1 Encounters: 11/18/24 86.5 kg (190 lb 11.2 oz) Delivery Location: Unit [facility]'s Office Responsible Libertarian Name: Marli Hanna Responsible Libertarian Requested Delivery Date: 11/19/24 Tomorrow to unit bilingual patient support caseworker's office on N10 Diagnosis and ICD: Diagnoses ICD-10-CM 1. Acute respiratory failure (HCC) J96.00 2. Cardiac arrest (HCC) I46.9 3. Cardiomyopathy (HCC) I42.9 4. Shock (HCC) R57.9 5. Indwelling catheter present on admission Z96.0 6. Left bundle branch block (LBBB) I44.7 LOU (Length of need): 99 Requested DME and Medical [id number] Supportive Clinical Documentation ??Rolling Walker-Regular (up to 350lbs) Medical Necessity: The patient requires a rolling walker toperform ADLs in the home Hannah Abdul 11/18/2024 4:04 PM * Plan of Care - Adela De La Torre RN - 11/18/2024 11:20 AM EDT Plan of Care Reviewed With: patient Progress: improving Outcome Evaluation: Pt A&O x4, discharging to [facility]. Medicated per OCT. Discharge instruction discussed with pt. pt verbalized understanding of medication regimen, follow-up appts, and s/s to look out for adverse efftects.Tele dc;d, PIVs removed. pt transported to main entrance for ride. current needs met at this time Adela De La Torre 11/18/2024 11:20 AM * Plan of Care - Alexa Garcia RN - 11/18/2024 6:30 AM EDT Pt AxOX4. Pt offers no complaints. Given dose of eliquis at HS. Pt up to BR x3, hat in BR for I/O's. Pt slept comfortably all night. Plan to d/c today. Alexa Garcia 11/18/2024 6:30 AM * Plan of Care - Adela De La Torre RN - 11/17/2024 8:34 PM EDT Plan of Care Reviewed With: patient Progress: improving Outcome Evaluation: Pt is A&O x4. VSS. Denies CP or SOB. Meds given per OCT. Heparin gtt d/c'd this evening. Pt ambulating well as SBA to BR. Safety maintained. Plan is to cont diuresing. Poss d/c tomorrow. No further needs at this time. Adela De La Torre 11/17/2024 8:34 PM * Plan of Care - Isi Valladares RN - 11/17/2024 1:28 PM EDT Ongoing Case Management Care Plan Note Summary: Per PT, Patient requires a rolling walker to perform ADLs in the home. CM spoke with pt about discharge planning and update on referrals sent to home care agencies. Pt does not have an accepting agency due to not having a current PCP. She will see a new PCP 11/26, howvere she will not have a provider to sign home care orders. Pt did well with PT today and is agreeable to going home routine w/ rolling walker. Pt will follow up with PCP and have them place referral for home care if neededat time of appt. Recommendation: Home Routine * Case Coordination-Payor Communication - Claribel Gonzalez RN - 11/17/2024 10:12 AM EDT Continued Stay Review Date: 11/17/2024 Clinical Update: 11/16/24 RHC and LHC: minimal nonobstructive CAD, small ramus intermedius moderate to severe stenosis. R heart pressures were unremarkable other than a mildly elevated LVEDP 23 - 25. Her degree of HFrEF does not match cath results, suggesting she has NICM. Plan: - Resume jardiance 10mg daily -- Increase coreg 6.25 bid to 12.5mg bid -- Start entresto 24-26mg bid -- Start spironolactone 12.5mg bid tomorrow or when we see her outpatient, we can start it -- Patient can swap to oral anticoagulation for DVT - Continue aspirin 81mg daily - Continue atorvastatin 40mg daily - Patient should start iron supplementation prior to discharge - Please maintain on telemetry. Monitor BMP/mag closely; please aim for K 4< and Mg 2<. Vitals: Date/Time Temp Pulse Resp BP SpO2 O2 Device 11/17/24 0750 96 (35.6) Abnormal 80 18 134/65 98 -- 11/16/24 2300 -- -- 16 -- -- room air (none) 11/16/24 2200 -- -- 16 -- -- room air (none) 11/16/24 2100 -- -- -- -- -- room air (none) 11/16/24 1937 -- 93 16 133/68 97 -- 11/16/24 1845 -- 94 -- -- 98 -- 11/16/24 1829 97.2 (36.2) 91 -- 138/65 97 -- 11/16/24 1825 -- 88 14 138/65 97 -- 11/16/24 1810 -- 88 15 138/78 97 room air (none) 11/16/24 1755 -- 88 16 139/75 97 room air (none) Meds/Treatments: ASA PO, Lipitor 40mg PO, Coreg 6.25mg PO BID, Ceftin PO, Pepcid PO Heparin IV Cont Labs/Diagnostics: H/H: 9.0/ 29.2 Latest Reference Range & Units 11/17/24 10:32 CO2, POC 22 - 33 mmol/L 20 (L) Anion Gap 7 - 17 15 BUN 8 - 21 mg/dL 32 (H) Creatinine 0.4 - 1.1 mg/dL 1.2 (H) Bun / Creat Ratio 10.0 - 25.0 Ratio 27 (H) Glucose 65 - 99 mg/dL 138 (H) Calcium 8.7 - 10.5 mg/dL 9.6 eGFR >59 54 (L) CARDIAC CATH: Minimal nonobstructive coronary disease with isolated moderate to severe stenosis in a small ramus intermediate. Cardiomyopathy is out of proportion to degree of CAD suggesting primary nonischemic etiology Normal cardiac output and index at rest Mildly elevated central filling pressures moderately elevated LVEDP (23-25 mmHg) Bed Type: telemetry D/C Plan: ongoing care Sign Claribel Gonzalez RN 11/17/2024 10:19 AM * Plan of Care - Alexa Garcia RN - 11/17/2024 6:44 AM EDT Pt AxOx4. Pt post cath, RRA and left femoral site CDI. TR band off at 1900, heparin gtt restarted at 2100. C/o some tenderness at RRA site, given tylenol with good effect. Alexa Garcia 11/17/2024 6:44 AM * Plan of Care - Remi Rangel RN - 11/16/2024 6:14 PM EDT Plan of Care Reviewed With: patient Progress: no change Outcome Evaluation: PT AOx4, vss, no c/o pain or SOB. Medicated per OCT. 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 Report taken from cath, patient clean cores, TR band still on. Assessmentto bed done at bedside with cath and night nurse, see flowsheet. All care explained and saftey maintained. Remi Rangel 11/16/2024 6:14 PM * Hospital Course - Neil Padilla MD - 11/16/2024 4:28 PM EDT 54-year-old female with recently diagnosed NICM EF 25%, hypertension, hyperlipidemia, CKD, hypothyroidism, PEA cardiac arrest September 2024 transferred from [facility] following an episode of unresponsiveness. Found to have acute pulmonary edema and acute respiratory failure. TTE demonstrates severely d iminished LV function, normal RV size and function, LVIDD 5.6cm, high- sensitivity troponin is mildly elevated. Diagnosed with acute R CFV DVT and started on anticoagulation. Patient was diuresed and transition to nasal cannula and eventually to room air. She has a negativefluid balance of -5 L and clinically close to euvolemia. GDMT with Entresto/Coreg/Jardiance. LHC/RHC done on 11/16 with pending results. * Case Coordination-Payor Communication - Claribel Gonzalez RN - 11/16/2024 9:15 AM EDT Continued Stay Review Date: 11/16/2024 Clinical Update: - Anticoagulant was changed to IV unfractionated heparin -Fluid balance negative -4.5 L from admission, even from yesterday - Plan for RHC and LHC today PLAN: - Continue aspirin 81mg daily - Continue atorvastatin 40mg daily - Hold jardiance 10mg daily in prep for cath -- Continue home coreg 6.25 bid -- Continue entresto 24-26mg bid -- Cr 1.6 today (stable). Post heart cath, we can plan to start spironolactone 25mg OD -- Patient currently on heparin drip pre- cath - Patient should start iron supplementation prior to discharge - Please maintain on telemetry. Monitor BMP/mag closely; please aim for K 4< and Mg 2<. Vitals: Date/Time Temp Pulse Resp BP SpO2 O2 Device 11/16/24 0734 97.1 (36.2) 82 18 119/68 98 -- 11/15/24 2343 97 (36.1) 83 20 136/80 97 -- 11/15/24 2000 97.1 (36.2) 85 20 132/74 -- room air (none) 11/15/24 1554 96.5 (35.8) 82 20 123/71 97 room air (none) Meds/Treatments: ASA PO, Lipitor 40mg PO, Coreg 6.25mg PO BID, Ceftin PO, Pepcid PO, Humalog subcutaneous, NS 100 ml/hr IV, Heparin IV Cont Labs/Diagnostics: H/H: 9.4/ 30.1 Na: 134 Bun: 43 Cr: 1.4 Gfr: 45 Bed Type: Telemetry D/C Plan: ongoing care Sign Claribel Gonzalez RN 11/16/2024 9:15 AM * Plan of Care - Gisele Sawyer RN - 11/16/2024 7:45 AM EDT Outcome Evaluation: Aox4, no complaints of SOB or chest pain. Heparin gtt infusing. NPO since midnight for L/RHC. Gisele Sawyer 11/16/2024 7:45 AM * Plan of Care - Remi Rangel RN - 11/15/2024 6:23 PM EDT Progress: no change Outcome Evaluation: PT AOx4, vss, no c/o pain or SOB. Medicated per OCT. NPO at midnight tonight for possible L/R HC tomorrow. All care explained and saftey maintained. Remi Rangel 11/15/2024 6:23 PM * Case Coordination-Payor Communication - Claribel Gonzalez RN - 11/15/2024 3:42 PM EDT Continued Stay Review Date: 11/15/2024 Clinical Update: consulted interventional cardiology to see if patient can get RHC and LHC tomorrow. Patient to be NPO from midnight onwards. Reduce to IV lasix 40mg OD. Cr 1.6 today (stable). Post heart cath, we canplan to start spironolactone 25mg OD PLAN: -Continue monitoring cardiac telemetry -2 g sodium diet - Continue diuretic therapy with furosemide 40 mg twice daily, closely monitor fluid balance, electrolyte status and renal function. Consider transition to oral diuretic - IV chlorothiazide was discontinued - GDMT with Entresto 24-26 mg twice daily, Coreg 6.25 mg twice daily, Jardiance 10 mg daily - Workup for renal artery stenosis with arterial Doppler ongoing, would be favoring severe LV dysfunction as is the reason for cardiopulmonary decompensation - Continue anticoagulation with subcutaneous Lovenox and therapeutic doses - Recurrent admissions with flash pulmonary edema and decompensated heart failure with who were notinvestigation regarding left main disease. Will discuss with general cardiology. Would recommend LHC -nuclear stress test on 09/23 demonstrates a positive fixed area of ischemia with hypokinesia over the mid inferior, basal inferior, and apical inferior wall - Remains in the hospital today with ongoing diuresis and optimization of medical management and GDMT Vitals: Date/Time Temp Pulse Resp BP SpO2 O2 Device 11/15/24 1200 95.1 (35.1) Abnormal 88 -- 129/76 97 -- 11/15/24 0945 -- -- -- -- -- room air (none) 11/15/24 0910 -- 86 -- 126/58 Abnormal -- -- 11/15/24 0826 96.8 (36) 83 -- 126/58 Abnormal 95 -- 11/15/24 0438 97 (36.1) 89 20 124/59 98 room air (none) 11/15/24 0017 97.1 (36.2) 86 18 129/74 97 room air (none) 11/14/24 2112 97 (36.1) 82 17 102/57 Abnormal 97 room air (none) Meds/Treatments: ASA PO, Lipitor 40mg PO, Coreg 6.25mg PO BID, Ceftin PO, Jardiance PO, Lovenox subcutaneous, PepcidPO, Lasix 40mg IV, Humalog subcutaneous, KlorCon PO Labs/Diagnostics: H/H: 9.9/ 30.9 Latest Reference Range & Units 11/15/24 08:40 Sodium 136 - 145 mmol/L 134 (L) Potassium 3.4 - 5.3 mmol/L 3.8 Chloride 98 - 107 mmol/L 96 (L) CO2, POC 22 - 33 mmol/L 26 Anion Gap 7 - 17 12 BUN 8 - 21 mg/dL 45 (H) Creatinine 0.4 - 1.1 mg/dL 1.6 (H) Bun / Creat Ratio 10.0 - 25.0 Ratio 28 (H) Glucose 65 - 99 mg/dL 117 (H) Calcium 8.7 - 10.5 mg/dL 9.9 Magnesium 1.6 - 2.7 mg/dL 2.2 eGFR >59 38 (L) Bed Type: TELEMETRY D/C Plan: Ongoing Sign Claribel Gonzalez RN 11/15/2024 3:42 PM * Plan of Care - Gisele Sawyer RN - 11/15/2024 6:33 AM EDT Outcome Evaluation: Aox4, no complaints of SOB or chest pain. Plan to continue diuresing, ischemic w/u and I&O's. Gisele Sawyer 11/15/2024 6:33 AM * Plan of Care - Adela De La Torre RN - 11/14/2024 8:02 PM EDT Plan of Care Reviewed With: patient Progress: improving Outcome Evaluation: A&O x4, no c/o CP/SOB Medicated per OCT. IV abt changed to PO today. Pt voiding in BR w/o issue. Safety maintained. Plan is to cont diuresing. No further needs at this time Adela De La Torre 11/14/2024 8:02 PM * Plan of Care - Gisele Sawyer RN - 11/14/2024 6:50 AM EDT Progress: improving Outcome Evaluation: Aox4, no complaints of SOB or chest pain. Tate removed. Pt voiding well. RenalUS completed. Plan for ischemic w/u. Gisele Sawyer 11/14/2024 6:50 AM * Critical Care Communication - Heather Plascencia PA-C - 11/13/2024 1:56 PM EDT Critical Care Communication This is a communication tool to be used by providers for patients in the ICU. This note is not part of the patient's legal medical record but all documentation can be tracked and audited. Patient Demographics MARLI HANNA 1970 54 y.o. No Known Allergies Reason for admission: cardiac arrest Hospital course of events: Patient is a 53-year-old female with a history of diabetes, [facility] Patient was at home History provided by patients mother at bedside. She states that patient called for her mothers helpbecause she felt short of breath and unwell. Patient reported to her mother that she felt like she was going to . Mother noted that during this time patient had foaming at her mouth, cyanosis and increased work of breathing. She did not lose consciousness or have seizure like activity. Her mother got the patient in the car and drove her to the emergency department. On arrival to the emergency department she lost consciousness, and pulses and CPR was initiated and she was emergently intubated with vomitus noted in airway on intubation. ROSC was achieved after 4 minutes of CPR and patient w as opening her eyes. She was given lasix 80mg IV, zosyn, vancomycin, 1L NS (prior to receiving records of reduced EF), zofran. Initially she required bagging to improve O2 sats. Femoral central line placed as patients sats could not maintain in trendelenburg. Of note patient was recently admitted to [facility] in September for a cardiac arrest, discharged on 09/29 with a diagnosis of new cardiomyopathy, EF 25%. At She arrived afebrile BP 129/77 on levophed at 26, satting 100% on PC/AC 100% FiO2. Labs notable for WBC 13.2, H/H 10.5/33.7, BUN/Cr 31/1.8, CO2 19, lactate 1.3, Troponin 79, proBNP 2385, procalcitonin 1.14, VBG 7.30/38. CXR showed bilateral infiltrates and superior mediastinal prominence. In the ICU, propofol was weaned off and patient's mental status improved. Echo showed LV function is severely decreased with EF 25%. Vent was able to be weaned with IV diuresis. Strep antigen +, abx changed to ceftriaxone. Found to have right femoral DVT for which she was started on heparin drip. With IV diuresis she tolerated SBT and ZEEP. On 11/12 she was extubated to 4L NC. She continued to getdiuresed and was weaned to room air. She was also started on jardiance with cardiology closely following. On 11/13, she was appropriate for floor level of care with telemetry per Dr. Rivera. Consults: Cardiology Procedures: Problem list: Active Problems: * No active hospital problems. * Resolved Problems: System Review: Neuro: no acute issues - mental status: alert and oriented - s/p versed at OSH - s/p propofol gtt - no CT head s/p cardiac arrest, however mental status improved Behavioral/Sedation scales CAM-ICU Delirium Present: Negative Henao Agitation Sedation Scale (RASS) / Modified RASS: 0-->alert and calm Resp: Acute hypoxic respiratory failure, likely aspiration event vs HF exacerbation - SpO2 96% on RA - extubated 11/12 to NC - right lower extremity DVT, no RH strain on echo (AC below in heme) CXR (11/11): 1. Unchanged moderate cardiomegaly and pulmonary venous congestion. 2. Unchanged hypoinflated lungs with Extensive alveolar infiltrates compatible with pulmonary edemadue to congestive heart failure or bronchopneumonia. 3. Interval advancement of endotracheal tube close to sarah. 4. No interval change in position of coiled up enteric tube. CV: PEA cardiac arrest; Prolonged Qtc, Hx of HTN, prior cardiac arrest (Sep 2024) and HFrEF (reported EF < 20%) - HR 90-110s, SBP 120-180s - trop 70 (79) - proBNP 2,385 - EKG: SR with PVCs, QTc 502 - s/p levo and vaso - continue IV lasix 40mg bid for goal neg 1-2L as tolerated - will give IV diuril 250mg - start jardiance 10mg daily - continue home coreg 6.25mg bid - continue aspirin 81mg daily and lipitor 40mg daily - do not resume home norvasc 5mg - should discontinue entirely given EF 25% - cardiology following, ruled out for TTM s/p cardiac arrest Echo (11/10/24): Left ventricular systolic function is severely decreased. The quantitative EF by 2D Zimmerman biplaneis 25%. Right ventricular systolic function is normal. Valve structure and function are normal. There is no previous study for comparison in our system. GI: No acute issues - start regular diet - nutrition consulted - total bili 0.6, AST/ALT 46/54, alk phos 109 - lactic acid 1.3 - continue home pepcid - continue bowel reg, stool output: 1x/24h Abdomen XR (11/10): No acute finding. Renal: ?GILBERTO on CKD, hx CKD - BUN/Cr 38/1.5 (36/1.4), unknown baseline - FeUrea 47.4%, intrinsic renal disease - will order renal ultrasound per cardiology - UOP/24h: 3L - net I/Os: -1.5L/24h, -4.3L LOS - remove tate Tate: yes Tate indication: Strict I/O Intake & Output Intake/Output Summary (Last 24 hours) at 11/13/2024 0607 Last data filed at 11/13/2024 0601 Gross per 24 hour Intake 1537.86 ml Output 2930 ml Net -1392.14 ml Endo: Hx hypothyroidism - FS 110s-160s - continue ISS - hgb a1c 6.0 - TSH 2.76 - continue home synthroid 137 mcg daily - holding home glipizide 10mg and trulicity Heme/Onc: acute on chronic anemia, acute right LE common femoral DVT - H/H 9.3/29.4 (9.1/29.7) - PLT 233 (215) - INR 1.1 - iron 16, TIBC 225, iron sat 7, ferritin 114 - antiXa 0.45 - continue heparin gtt for DVT- switch to therapeutic lovenox ID: Strep PNA - tmax 100.9, WBC 8.0 (7.1) - procal 1.14 - blood cx (11/10): NGTD - MRSA (11/10): negative - viral resp panel (11/10): negative - urine strep/legionella (11/10): +Strep antigen - resp cx (11/10): NGTD - continue ceftriaxone (started with cefepime 11/10, day 4 of antibiotics - plan to complete 7 days) Prophylaxis: Heparin subcutaneous, PPI (home med) Code Status: FULL Lines: Right femoral TLC- pressors Issues for follow up: - cardiology recs for diuresis / HF management - would advise her against taking her home amlodipine when discharged - renal ultrasound pending - watch QTc, today 502 - ordered to complete 7 day course antibiotics * Significant Event - ADDI Muse - 11/12/2024 5:33 PM EDT Pt tolerated ZEEP x2, good mechanics. She was extubated to 4L NC. * Plan of Care - Kristine Carvalho, TAILER OFF - 11/12/2024 5:23 PM EDT Problem: Adult Inpatient Plan of Care Goal: Plan of Care Review Outcome: Progressing Flowsheets (Taken 11/12/2024 1722) Outcome Evaluation: pt extubated at 1715. no stridor or resp distress noted. pt resting on 4L NC tolerating well. Outcome Evaluation: pt extubated at 1715. no stridor or resp distress noted. pt resting on 4L NC tolerating well. Kristine Carvalho 11/12/2024 5:23 PM * Plan of Care - ADDI Muse - 11/12/2024 3:06 PM EDT Patient and family updated regarding plan of care at bedside. All questions answered at this time. * Plan of Care - Aiyana Palacio CM - 11/12/2024 12:21 PM EDT Initial Case Management Care Plan Note Assessment completed with patient's mother, medical record review and discussion with clinical team. Provided a Case Coordination packet with contact information, CC pamphlet and Your Next Step: Care Outside the Hospital brochure to the patient. Summary: Pt was transferred from [facility] in [place] and admitted to [facility] on 11/10 s/p cardiac arrest, shock, acute hypoxemic resp failure, pulmonary edema, NSTEMI type II demand, GILBERTO, acute metabolic encephalopathy, anemia. Pt is currently intubated in ICU. I spoke with pt's mother and explained role of [facility]. Pt lives with children ages 21, 24in 2 story apartment and was independent prior to admission, however needs assist with household duties. [facility] Winder will speak with pt once extubated and mental status allows. Anticipated transition plan: Pt recently had home care (ended 2 days [employer] SPECIALIST), however pt's mother uncertain the name of agency and will follow up with her grand daughter. Caregiver/responsible person supports: Pt lives with children ages 21,24 who both work. Pt's motherlives in same apt complex. PCP: Per pt's mother she had PCP who is no longer in the practice at [address] [place] [address] in [place]. [facility] office was to contact her with new PCP information. Anticipated transportation:ambulance Referrals made: None Barriers to discharge: clinical Problem: Adult Inpatient Plan of Care Goal: Readiness for Transition of Care Outcome: Progressing Aiyana Palacio 11/12/2024 12:21 PM * Rehab Therapy Consults - Anabela Hoffman, PT - 11/12/2024 11:08 AM EDT Physical Therapy Initial Evaluation Current Diagnosis and Pertinent Medical History: Marli Hanna is a 54 y.o. female admitted with ahistory of diabetes, hypertension, HFrEF with recently Dx EF 25% who presented to [facility] with SOB, suffered cardiac arrest. ROSC achieved after 4 minutes CPR. Intubated and transferred to for further management. Precautions/Restrictions: fall, other (see comments) (skin) Previous Level Of Function/Home Environment Home Environment: Living Arrangements: apartment People In Home: child(calixto), adult Prior Level Of Function: Household Mobility: independent Community Mobility: independent Equipment Used at Home: none Pt reposrt living with son and daughter , grandaughter in ahouse with 5STE with B/L rails and FOS to bedroom with R side rail. Pt was I iwth mobility and ADLS, daughter assist with showering and transportation, Family assist as required. Assessment & Plan Assessment: Pt presents to PTIE with ETT to vent , alert and Ox4 , agreeable for PT session. Duringattempt for bed mobility pt endorsed need for suction and difficulty breathing with tachy cardia and desaturation to low 70's required intervention by team and with RT and provider team pt recovered back to 90%.Session limited due to event. Pt presents below her baseline and will require ongoing PTin house and post D/c . Pt will be reassessed for mobility and DME needs at next session pending medical progress. Rehab Plan of Care: Pt will be seen by PT next session to maximize her I with safe bed mobility , trial transfers and mobility , stair trial as appropriate. Pt will benefit from beach chair and egress with Ax2 as appropriate . PT Recommendations for Staff: Ax2 in bed , Jorge CABELLO at this time unable to assess secondary to SOBand tachy event. PT Frequency during Hospitalization: 2-3 times/wk Plan of Care Reviewed With: Outcome Measures The Activity Measure for Post-Acute Care (AM-PAC) Basic Mobility Inpatient Short Form (6-clicks) royce standardized measure used to quantify functional deficits in mobility. The total score of the measure ranges from 6-24. A higher score indicates a higher level of independence with functional mobility. Baseline [facility] Basic Mobility Score: 24 Current [facility] Basic Mobility Score: 8 Objective Data Balance: static sitting - STACIE dynamic sitting - STACIE static standing - STACIE dynamic standing - STACIE Activity Tolerance:Good for bed level session until pt began reporting SOB, after which she desaturated with suctioning; Patient performed all activity on ETT to vent (SPN-CPAP mode at 40% FiO2, PEEP- 6, pressure support - 5 prior to nursing and RT intervention). Vitals: BP: 157/73, HR: 110-125, rising to 135 with anxiety and reports of SOB; O2: 96-98% on vent prior to desaturation with team present. Education: Role of PT, purpose of evaluation and POC. Subjective '' I cannot breathe'' mouthing with ETT Past Medical/Surgery History No past medical history on file. No past surgical history on file. Flowsheet Data 11/12/24 1108 Physical Therapy Time and Intention PT Visit Type initial evaluation Mode of Treatment physical therapy Patient Effort good Symptoms Noted During/After Treatment significant change in vital signs General Information Patient Profile Reviewed yes Onset of Illness/Injury or Date of Surgery 11/10/24 Referring Physician ADDI Muse Patient/Family/Caregiver Comments/Observations '' I cannot breathe'' mouthing with ETT General Observations of Patient Pt was received in bed in the ICU with ETT to vent, R femoral CVC, OGT and tate cath with heparin running, in NAD and agreeable to PTIE . Pertinent History of Current Functional Problem Per EMR:53-year-old female with a history of diabetes, hypertension, HFrEF with recently Dx EF 25% who presented to [facility] with SOB, sufferedcardiac arrest. ROSC achieved after 4 minutes CPR. Intubated and transferred to for further management. Existing Precautions/Restrictions fall;other (see comments) (skin) Previous Level of Function/Home Environm Previous Level of Function, Premorbid Pt reposrt living with son and daughter , grandaughter in ahouse with 5STE with B/L rails and FOS to bedroom with R side rail. Pt was I iwth mobility and ADLS, daughter assist with showering and transportation, Family assist as required. Living Environment Current Living Arrangements home Home Accessibility stairs to enter home;stairs within home People in Home child(calixto), adult;grandchild(calixto) Primary Care Provided by self Home Main Entrance Number of Stairs, Main Entrance five Stair Railings, Main Entrance railings on both sides of stairs Stairs Within Home, Primary Stairs, Within Home, Primary FOS to 2nd floor bedroom Stair Railings, Within Home, Primary railing on right side (ascending) Home Use of Assistive/Adaptive Equipment Equipment Currently Used at Home other (see comments);grab bar, tub/shower Pain Additional Documentation Pain Scale: Word Pre/Post-Treatment (Group) Pain Scale: Numbers Pre/Post-Treatment Pre/Posttreatment Pain Comment Pt C/o some upper abdominal pain did not quantify. Range of Motion (ROM) Range of Motion ROM is WFL;bilateral lower extremities Strength (Manual Muscle Testing) Strength (Manual Muscle Testing) bilateral lower extremities (atleast 4/5 tO BLe with functional assessment .) Bed Mobility Comment, (Bed Mobility) Bed level assessment limited by SOB and tachycardia requiring intervention. Coping Observed Emotional State calm;cooperative Verbalized Emotional State acceptance Safety All Alarms alarm(s) activated and audible Enhanced Safety Measures bed alarm set Progressive Mobility Progressive Mobility Level Achieved Bedrest/PROM/Lateral Rotation AMPAC Basic Mobility Turning from your back to your side while in a flat bed without using bedrails? 2 Moving from lying on your back to sitting on the side of a flat bed without using bedrails? 2 Moving to and from a bed to a chair (including wheelchair)? 1 Standing up from a chair using your arms? 1 To walk in a hospital room? 1 Climbing 3-5 steps with a railing? 1 [facility] Basic Mobility Score 8 Therapy Assessment/Plan (PT) Patient/Family Therapy Goals Statement (PT) None stated Functional Level at Time of Evaluation (PT) bed level session secondary to tachy and SOB. PT Diagnosis (PT) IMpaired functuional mobility Rehab Potential (PT) good Criteria for Skilled Interventions Met (PT) skilled treatment is necessary Therapy Frequency (PT) 2-3 times/wk PT Recommendations for Staff Ax2 in bed , Jorge CABELLO at this time unable to assess secondary to SOB and tachy event. Predicted Duration of Therapy Intervention (PT) LOS PT Evaluation Complexity Clinical Decision Making (PT Evaluation Complexity) moderate complexity Overall Complexity (PT Evaluation Complexity) moderate complexity Therapy Plan Review/Discharge Plan (PT) Therapy Plan Review (PT) evaluation/treatment results reviewed;care plan/treatment goals reviewed Physical Therapy Goals Bed Mobility Goal Selection (PT) bed mobility, PT goal 1 Transfer Goal Selection (PT) transfer, PT goal 1 Gait Training Goal Selection (PT) gait training, PT goal 1 Stairs Goal Selection (PT) stairs, PT goal 1 Bed Mobility Goal 1 (PT) Emmett Level/Cues Needed (Bed Mobility Goal 1, PT) independent Activity/Assistive Device (Bed Mobility Goal 1, PT) bed mobility activities, all Time Frame (Bed Mobility Goal 1, PT) 2 weeks Transfer Goal 1 (PT) Emmett Level/Cues Needed (Transfer Goal 1, PT) independent Time Frame (Transfer Goal 1, PT) 2 weeks Activity/Assistive Device (Transfer Goal 1, PT) transfers, all Gait Training Goal 1 (PT) Time Frame (Gait Training Goal 1, PT) 2 weeks Emmett Level (Gait Training Goal 1, PT) independent Activity/Assistive Device (Gait Training Goal 1, PT) gait (walking locomotion) Distance (Gait Training Goal 1, PT) 300 Stairs Goal 1 (PT) Emmett Level/Cues Needed (Stairs Goal 1, PT) modified independence Activity/Assistive Device (Stairs Goal 1, PT) stairs, all skills Number of Stairs (Stairs Goal 1, PT) FOS Time Frame (Stairs Goal 1, PT) 2 weeks Sign: Anabela Hoffman PT * Rehab Therapy Consults - Hannah Vaughn, OT - 11/12/2024 11:03 AM EDT Occupational Therapy Initial Evaluation Current Diagnosis and Pertinent Medical History: Marli Hanna is a 54 y.o. female with history ofobesity, hypothyroidism, CKD, HFrEF who presented with cardiac arrest. Precautions/Restrictions: fall, other (see comments) (skin) Occupational Profile/Previous Level Of Function Occupational History/Life Experiences: Pt lives with her son, daughter and granddaughter in a 2 floor home however she spents most of her time on the 1st floor. One of her children are generally homeas they work different hours. - driving but family provides transportation. Environmental Supports and Barriers: Supportive family who are able to provide her assist. Her mother is also involved and lives nearby. Equipment Currently Used at Home: none Patient Goals: to return home BADL: partial assistance (daughter assists with showers) IADL: partial assistance (family assists) Transfers: independent Household Mobility: independent Assessment & Plan Assessment: Pt was cleared for session by nurse and provider who reported they were hopeful to extubate pt later today. Marli presents for OT eval with deficits in strength and activity tolerance, resulting in decreased functional independence from baseline self-care and mobility status as noted above. She was pleasant and cooperative during bed level session and communicated via writing and gestures. Pt participated in B UE mvmt with grossly intact range and mild strength deficits observed. During bed level session pt requesting the nurse to suction her (with stable O2 sats). Nurse was notified however while she was awaiting her arrival she became more anxious, with HR rising, reporting she felt like she was having trouble breathing. Nurse in to suction pt with sats noted to drop into the 70s with provider response. She eventually recovered to 90% with RT and team in with patient however limited session was terminated with plan to follow up as medically appropriate. This patient remains intubated in the ICU and will require further OT follow up in house to furtherassess ADLs and mobility and to assist with transitional planning needs. Rehab Plan of Care: Pt would benefit from continued OT services 2-3x/wk while in house to maximize functional independence, safety and participation in meaningful occupations. OT intervention to focus on maximizing independence with bed mobility, commode transfers, grooming and UB dressing as able and appropriate. Recommend bed level toileting at this time and chair position in bed as tolerated. Encourage active participation with grooming and UB ADLs as able with staff assist. -OT Recommendations for Staff: Bed level toileting. Encourage active participation with ADLs throughout the day as able. -OT Frequency during Hospitalization: 2-3 times/wk -Plan of Care Reviewed With: evaluation/treatment results reviewed, patient, participants voiced agreement with care plan Outcome Measures The Activity Measure for Post-Acute Care (AM-PAC) Daily Activity Inpatient Short Form (6-clicks) royce standardized measure used to quantify deficits in self- care. The total score of the measure ranges from 6-24. A higher score indicates a higher level of independence with self-care tasks. Baseline [facility] Daily Activity Score: 22 Current [facility] Daily Activity Score: 9 Objective Data Cognitive Status: Arousal: alert Affect: pleasant, appropriate Orientation: A&O x 3 Command Following: able to follow 2 step commands without difficulty Communication: able to express self and needs through writing and use of some gestures Cognitive Function: Attention: intact sustained attention Memory/recall: intact for STM/LTM Safety Awareness: no concerns noted during session Insight: good into current deficits and limitations Activities of Daily Living: Feeding: NPO with OGT in place at this time Toileting: Dependent with tate cath in place Functional Mobility: Bed Mobility: Unable to assess 2/2 episode of SOB and desaturation prior to mobility attempts Sensory Systems: Vision: wears contact lenses Hearing: WFL Somatosensory: intact to light touch in B UEs ROM: B UE ROM WFL Strength: grossly at least 4/5 based on functional assessment Coordination: FMC/GMC intact for ADL and mobility performance Activity Tolerance: good for bed level session until pt began reporting SOB, after which she desaturated with suctioning; Patient performed all activity on ETT to vent (SPN-CPAP mode at 40% FiO2, PEEP - 6, pressure support - 5 prior to nursing and RT intervention). Vitals: BP: 157/73, HR: 110-125, rising to 135 with anxiety and reports of SOB; O2: 96-88% on vent prior to desaturation with team present Education: Role of OT, purpose of evaluation and POC. Subjective I need to be suctioned. - via writing Past Medical/Surgery History No past medical history on file. No past surgical history on file. Flowsheet Data 11/12/24 1103 OT Time and Intention OT Visit Type initial evaluation Mode of Treatment occupational therapy Patient Effort good Symptoms Noted During/After Treatment significant change in vital signs;shortness of breath General Information Patient Profile Reviewed yes Onset of Illness/Injury or Date of Surgery 11/10/24 Referring Physician ADDI Muse Patient/Family/Caregiver Comments/Observations I need to be suctioned. - via writing General Observations of Patient Pt was received in bed in the ICU with ETT to vent, R femoral CVC, OGT and tate cath with heparin running, in NAD and agreeable to OT assessment. Pertinent History of Current Functional Problem Per EMR - 54 y.o. female with history of obesity, hypothyroidism, CKD, HFrEF who presented with cardiac arrest. Existing Precautions/Restrictions fall;other (see comments) (skin) Previous Level of Function/Home Environm BADLs, Premorbid Functional Level partial assistance (daughter assists with showers) IADLs, Premorbid Functional Level partial assistance (family assists) Transfers, Premorbid Functional Level independent Household Ambulation, Premorbid Functional Level independent Community Ambulation, Premorbid Functional Level independent Living Environment Current Living Arrangements home Home Accessibility stairs to enter home;stairs within home People in Home child(calixto), adult;grandchild(calixto) Primary Care Provided by self Home Main Entrance Stair Railings, Main Entrance railings on both sides of stairs Number of Stairs, Main Entrance five Stairs Within Home, Primary Stair Railings, Within Home, Primary railing on right side (ascending) Stairs, Within Home, Primary FOS to 2nd floor bedroom Home Use of Assistive/Adaptive Equipment Equipment Currently Used at Home other (see comments);grab bar, tub/shower (pt reports her mom has a shower chair she can borrow.) Occupational Profile Occupational History/Life Experiences (Occupational Profile) Pt lives with her son, daughter and granddaughter in a 2 floor home however she spents most of her time on the 1st floor. One of her children are generally home as they work different hours. - driving but family provides transportation. Environmental Supports and Barriers (Occupational Profile) Supportive family who are able to provide her assist. Her mother is also involved and lives nearby. Patient Goals (Occupational Profile) to return home Pain Assessment Pre/Posttreatment Pain Comment Pt reporting some generalized pain in upper abdomen Cognition Affect/Mental Status (Cognition) WNL Orientation Status (Cognition) oriented x 3 Follows Commands (Cognition) follows one-step commands Cognitive Function (Cognition) WNL Coping Observed Emotional State calm;cooperative;pleasant Verbalized Emotional State acceptance (via writing) Safety Safety WDL WDL Safety Factors call light in reach;bed in low position All Alarms alarm(s) activated and audible Enhanced Safety Measures bed alarm set Progressive Mobility Progressive Mobility Level Achieved Bedrest/PROM/Lateral Rotation [facility] Daily Activity Putting on and taking off Lower Body Clothing? 1 Bathing (including washing/rinsing/drying)? 2 Toileting (includes using toilet, bedpan, or urinal)? 1 Putting on and taking off upper body clothing? 2 Taking care of personal grooming such as brushing teeth? 2 Eating meals? 1 [facility] Daily Activity Score 9 Therapy Assessment/Plan (OT) Patient/Family Therapy Goal Statement (OT) to return home OT Diagnosis weakness s/p cardiac arrest Rehab Potential (OT) good Criteria for Skilled Therapeutic Interventions Met (OT) yes Therapy Frequency (OT) 2-3 times/wk Predicted Duration of Therapy Intervention (OT) LOS Problem List (OT) problems related to;mobility;strength Planned Therapy Interventions (OT) activity tolerance training;BADL retraining;functional balance retraining;occupation/activity based interventions;strengthening exercise;transfer/mobility retraining Evaluation Complexity (OT) Review Occupational Profile/Medical/Therapy History Complexity expanded/moderate complexity Assessment, Occupational Performance/Identification of Deficit Complexity 3-5 performance deficits Clinical Decision Making Complexity (OT) detailed assessment/moderate complexity Overall Complexity of Evaluation (OT) moderate complexity Therapy Plan Review/Discharge Plan (OT) Therapy Plan Review (OT) evaluation/treatment results reviewed;patient;participants voiced agreement with care plan OT Recommendations for Staff Bed level toileting. Encourage active participation with ADLs throughout the day as able. OT Goals Bed Mobility Goal Selection (OT) bed mobility, OT goal 1 Transfer Goal Selection (OT) transfer, OT goal 1 Dressing Goal Selection (OT) dressing, OT goal 1 Toileting Goal Selection (OT) toileting, OT goal 1 Grooming Goal Selection (OT) grooming, OT goal 1 Bed Mobility Goal 1 (OT) Emmett Level/Cues Needed (Bed Mobility Goal 1, OT) minimum assist (75% or more patient effort) Activity/Assistive Device (Bed Mobility Goal 1, OT) sit to supine/supine to sit Time Frame (Bed Mobility Goal 1, OT) 1 week Transfer Goal 1 (OT) Emmett Level/Cues Needed (Transfer Goal 1, OT) moderate assist (50-74% patient effort) Activity/Assistive Device (Transfer Goal 1, OT) toilet;commode chair Time Frame (Transfer Goal 1, OT) 1 week Dressing Goal 1 (OT) Activity/Device (Dressing Goal 1, OT) upper body dressing Time Frame (Dressing Goal 1, OT) 1 week Emmett/Cues Needed (Dressing Goal 1, OT) minimum assist (75% or more patient effort) Toileting Goal 1 (OT) Activity/Device (Toileting Goal 1, OT) toileting skills, all Time Frame (Toileting Goal 1, OT) 1 week Emmett Level/Cues Needed (Toileting Goal 1, OT) moderate assist (50-74% patient effort) Grooming Goal 1 (OT) Activity/Device (Grooming Goal 1, OT) oral care;wash face, hands Emmett (Grooming Goal 1, OT) supervision required Time Frame (Grooming Goal 1, OT) 1 week Sign: Hannah Vaughn OT * Plan of Care - Greta Bustamante RRT - 11/12/2024 3:59 AM EDT Outcome Evaluation: Pt remains intubated overnight peep was weane to 6 per spo2. Plan for SBT in the am as tolerated. Plan of care ongoing Problem: Mechanical Ventilation Invasive Goal: Effective Communication Outcome: Progressing Goal: Optimal Device Function Outcome: Progressing Goal: Mechanical Ventilation Liberation Outcome: Progressing Goal: Absence of Device-Related Skin and Tissue Injury Outcome: Progressing Goal: Absence of Ventilator-Induced Lung Injury Outcome: Progressing Vent Mode: PC-AC Rate set: 18 Tidal volume: Insp Pressure: 26 FIO2: 40 PEEP: (S) 6 (weaned per spo2/fio2) Press Support: Airway 11/10/2457 endotracheal tube-Airway Tube Secured At (cm): 25 Airway 11/10/24 06 endotracheal tube-Tube Reference Point: lip, secure and patent Patient Lines/Drains/Airways Status Active Airway Name Placement date Placement time Site Days Airway 11/10/24 0657 endotracheal tube 11/10/24 0657 -- 1 Secretions Amount: small Secretions Color: white Secretions Characteristics: thin SpO2 Readings from Last 1 Encounters: 11/12/24 96% Greta Bustamante 11/12/2024 3:59 AM * Plan of Care - JONO Maldonado - 11/11/2024 6:26 PM EDT Problem: Adult Inpatient Plan of Care Goal: Plan of Care Review Outcome: Progressing Flowsheets (Taken 11/11/2024 182) Plan of Care Reviewed With: patient Progress: improving Outcome Evaluation: Pt placed on SPN-CPAP/PS, tolerating well. Weaned peep to 8 and titrated FiO2 to 40%. Plan to return back to resting settings tonight. Problem: Mechanical Ventilation Invasive Goal: Effective Communication Outcome: Progressing Goal: Optimal Device Function Outcome: Progressing Goal: Mechanical Ventilation Liberation Outcome: Progressing Goal: Optimal Nutrition Delivery Outcome: Progressing Goal: Absence of Device-Related Skin and Tissue Injury Outcome: Progressing Goal: Absence of Ventilator-Induced Lung Injury Outcome: Progressing Plan of Care Reviewed With: patient Progress: improving Outcome Evaluation: Pt placed on SPN-CPAP/PS, tolerating well. Weaned peep to 8 and titrated FiO2 to 40%. Plan to return back to resting settings tonight. Rafael Hernandez 11/11/2024 6:26 PM * Plan of Care - ADDI Muse - 11/11/2024 3:09 PM EDT Family updated regarding plan of care at bedside. All questions answered at this time. * Case Coordination-Payor Communication - Nereyda Mullins - 11/11/2024 1:54 PM EDT Per State of [place] General Statutes Sec: [id number]: Notification of determination communicated within 2business days of receipt of all information necessary to complete the review. Please fax authorization determination to [phone] or call [phone]. * Case Coordination-Payor Communication - Aliyah Perea RN - 11/11/2024 11:00 AM EDT Continued Stay Review Date: 11/11/2024 Clinical Update: Per vascular lab, pt has right common femoral DVT. Plan to start heparin drip. Plan: Neuro: No acute issues - Mental status: Alert and oriented, following commands BL - continue dilaudid 1mg IV q2h PRN (x3 overnight) - s/p versed at OSH - s/p propofol gtt - No CT head s/p cardiac arrest however mental status improved Behavioral/Sedation scales CAM-ICU Delirium Present: Negative Henao Agitation Sedation Scale (RASS) / Modified RASS: -1-->Wakes easily, drowsy Resp: Acute hypoxic respiratory failure, likely aspiration event vs HF exacerbation - SpO2 88-100% on PC-AC rate 18, PS 26, FiO2 60%, PEEP 10 - wean O2 then PEEP today - ABG 7.33/37/82/20 - when appropriate for SBT - s/p lasix 40 mg IV 11/10, start lasix 40 mg IV BID - obtain lower ext dopplers - CXR in process, appears wet CXR 11/10: 1. ETT placement. Recommend retraction. 2. Stable bilateral infiltrates. 3. Superior mediastinal prominence. Consider CT follow-up correlation as clinically warranted. This may reflect technique Current Ventilator/Noninvasive Ventilator/Oxygen Settings Ventilation Mode (Drager V500): PC-AC Rate Set (breaths/min) (Drager V500): 18 Pressure Set (cmH2O): 26 Oxygen Concentration (%) (Drager V500): 60 PEEP (cmH2O) (Drager V500): 10 CV: PEA cardiac arrest; Prolonged Qtc. Hx of HTN, prior cardiac arrest (Sep 2024) and HFrEF (reported EF < 20%) - SBP 100s-150s, HR 50s-110s - HST 70 (79), proBNP 2,385 - MvO2: 91.1, indicating distributive shock - ECG 11/10: sinus rhythm with PVCs, Qtc 535 - s/p levo and vaso - holding home carvedilol 6.25 mg and amlodipine 5 mg daily, resume as appropriate - can start home atorvastatin 40 mg daily - PRN diuril 500 mg , goal -1-2L as tolerated - start home aspirin 81 mg daily, just watch CBC - Cardiology consulted, appreciate recommendations - Ruled out for TTM s/p cardiac arrest Echo (11/10/24): Left ventricular systolic function is severely decreased. The quantitative EF by 2D Zimmerman biplaneis 25%. Right ventricular systolic function is normal. Valve structure and function are normal. There is no previous study for comparison in our system. GI: No acute issues - continue osmolite at goal rate 35 ml/hr - Nutrition consulted - Total bili 0.6, AST/ALT 46/54, alk phos 109 - Lactic acid 1.3 - start PPI - continue bowel regimen Abdomen XR (11/10): No acute finding. Renal: - BUN/Cr 33/1.7 (31/1.8), unclear what baseline Cr is - Bicarb 22 (20) - FeUrea 47.4 % suggests intrinsic renal disease - diuresis as above - monitor chemistry - UOP 3.2L 24h, I/O -1.5L/24h, -1.5L LOS Tate: yes Tate indication: Strict I/O Intake & Output Intake/Output Summary (Last 24 hours) at 11/11/2024 0724 Last data filed at 11/11/2024 0600 Gross per 24 hour Intake 1698.93 ml Output 3200 ml Net -1501.07 ml Endo: Hx of hypothyroidism - FS 100s-160s - continue MIRYAM - Hold home glipizide 10mg, trulicity - TSH 2.76 - start home synthroid 137 mcg daily Heme/Onc: Anemia - H/H 9.2/29.4 (10.5/33.7) - Plt 193 (361) - INR 1.1 - check iron, ferritin, transferrin per cards as part of HF workup - Check LE duplex - DVT ppx: subcutaneous heparin - monitor CBC and for sign of bleeding ID: Leukocytosis (improved), strep PNA - Tmax 101.3 - WBC 7.7 (13.2) - Procal 1.14 - Bcx x2 in process - MRSA negative - viral PCR negative - strep antigen presumed positive - legionella antigen presumed negative - resp cx ordered - on cefepime and doxycycline plan to change to ceftriaxone Vitals: Vitals: 11/11/24 0830 11/11/24 0845 11/11/24 0900 11/11/24 0915 BP: (!) 117/57 Pulse: 95 92 92 91 Resp: Temp: 99.9 ??F (37.7 ??C) 99.9 ??F (37.7 ??C) 99.9 ??F (37.7 ??C) 99.7 ??F (37.6 ??C) SpO2: 11/11/24 0930 11/11/24 0935 11/11/24 0945 11/11/24 1000 BP: 127/66 127/66 Pulse: 92 90 99 98 Resp: Temp: 99.5 ??F (37.5 ??C) 99.5 ??F (37.5 ??C) 99.5 ??F (37.5 ??C) 99.5 ??F (37.5 ??C) SpO2: 98% Meds/Treatments: Scheduled Meds: [START ON 11/12/2024] aspirin, 81 mg, Oral, Daily [START ON 11/12/2024] atorvastatin, 40 mg, Oral, Daily cefTRIAXone, 1 g, Intravenous, Q24H chlorhexidine gluconate, , Topical, Daily furosemide, 40 mg, Intravenous, BID heparin (porcine), 5,000 Units, Subcutaneous, Q8H MILO insulin lispro, 3-11 Units, Subcutaneous, Q4H MILO lansoprazole, 30 mg, OG Tube, Daily levothyroxine, 137 mcg, Feeding Tube, Daily 6AM multivitamin with minerals, 15 mL, Feeding Tube, Daily protein supplement feeding tube flush, 3 oz, Feeding Tube, BID senna-docusate, 2 tablet, Oral, Nightly PRN Meds: acetaminophen bisacodyl glucose OR glucose OR dextrose OR dextrose OR glucagon HYDROmorphone lactulose naloxone perflutren lipid microsphere (DEFINITY) 1.3 mL in sodium chloride (NS) 0.9 % 10 mL Labs/Diagnostics: 11/11/24 00:01 White Blood Cell Count 7.7 Red Blood Cell Count 3.52 (L) Hemoglobin 9.2 (L) Hematocrit 29.4 (L) MCV 84 MCH 26.1 (L) MCHC 31.3 RDW 14.8 (H) Platelet Count 193 MPV 9.8 Sodium 139 Potassium 3.8 Chloride 107 CO2, POC 22 Anion Gap 10 BUN 33 (H) Creatinine 1.7 (H) Bun / Creat Ratio 19 Glucose 139 (H) Calcium 8.8 Magnesium 2.1 Protein, Total 7.4 Albumin 3.5 Globulin 3.9 A/G Ratio 0.9 (L) eGFR 36 (L) Bilirubin Total 0.8 Bilirubin Direct 0.3 (H) Aspartate Aminotrans (AST/SGOT) 36 Alanine Aminotrans (ALT) 49 Alkaline Phosphatase 96 Phosphorus 4.7 (H) (L): Data is abnormally low (H): Data is abnormally high XR chest: 1. Unchanged moderate cardiomegaly and pulmonary venous congestion. 2. Unchanged hypoinflated lungs with Extensive alveolar infiltrates compatible with pulmonary edemadue to congestive heart failure or bronchopneumonia. 3. Interval advancement of endotracheal tube close to sarah. 4. No interval change in position of coiled up enteric tube. Bed Type: ICU D/C Plan: ongoing * Plan of Care - Greta Bustamante RRT - 11/11/2024 5:47 AM EDT Outcome Evaluation: Pt remains intubated overnight with no changes made to settings unable to wean fio2 due to pt desatting. ETT advanced per xray to 25@ Lip. Plan of care ongoing Problem: Mechanical Ventilation Invasive Goal: Effective Communication Outcome: Progressing Goal: Optimal Device Function Outcome: Progressing Goal: Mechanical Ventilation Liberation Outcome: Progressing Goal: Absence of Device-Related Skin and Tissue Injury Outcome: Progressing Goal: Absence of Ventilator-Induced Lung Injury Outcome: Progressing Vent Mode: PC-AC Rate set: 18 Tidal volume: Insp Pressure: 26 FIO2: 60 PEEP: 10 Press Support: Secretions Amount: small Secretions Color: white Secretions Characteristics: thin SpO2 Readings from Last 1 Encounters: 11/11/24 96% Greta Bustamante 11/11/2024 5:47 AM * Plan of Care - RT Vernon - 11/10/2024 6:58 PM EDT Problem: Adult Inpatient Plan of Care Goal: Plan of Care Review Outcome: Not Progressing Problem: Mechanical Ventilation Invasive Goal: Effective Communication Outcome: Not Progressing PT received on PC/AC settings adjusted in attempt to improve ABG. PT wakes up easily following commands, unable to wean fio2 or peep at this time. Rianna Rothman 11/10/2024 6:58 PM * Plan of Care - Edel Sheth PA-C - 11/10/2024 4:12 PM EDT Updated the patient's mother and son at bedside on plan of care. All questions answered. * Case Coordination-Payor Communication - Aliyah Perea RN - 11/10/2024 1:50 PM EDT Type: (Inpt/Obs): Inpatient Date of Admission: 11/10/2024 Admitting Dx: cardiac arrest HPI: 54-year-old female transfer by [facility] for post ROSC, intubated post- arrest patient. Patientapparently was recently admitted for similar presentation after PEA, likely respiratory arrest. Shehad regained completely normal neurologic function. Had shortness of breath earlier yesterday, arrested on the way to the hospital. CPR was started immediately in the parking lot at outside facility.One round of CPR was enough to get ROSC. Now intubated and sedated on propofol, requiring pressors. Vitals: Vent 60% FiO2 Vitals: 11/10/24 1230 11/10/24 1245 11/10/24 1315 11/10/24 1330 BP: 129/67 134/68 (!) 151/84 (!) 144/70 Pulse: 85 88 93 96 Resp: 17 16 Temp: 100 ??F (37.8 ??C) 100 ??F (37.8 ??C) SpO2: 95% 96% (!) 88% 94% 11/10/24 1331 11/10/24 1340 11/10/24 1342 11/10/24 1345 BP: (!) 144/70 136/65 131/67 126/60 Pulse: 95 96 96 96 Resp: 16 16 17 15 Temp: (!) 100.4 ??F (38 ??C) (!) 100.6 ??F (38.1 ??C) (!) 100.4 ??F (38 ??C) (!) 100.4 ??F (38 ??C) SpO2: (!) 90% 95% 93% 92% Labs/Diagnostics: 11/10/24 06:42 11/10/24 07:50 11/10/24 08:56 White Blood Cell Count 13.2 (H) Red Blood Cell Count 3.98 (L) Hemoglobin 10.5 (L) Hematocrit 33.7 (L) MCV 85 MCH 26.4 (L) MCHC 31.2 RDW 14.5 Platelet Count 361 MPV 10.1 Neutrophils Auto 71.7 Abs Neutrophils Auto 9.44 (H) Immature Granulocytes 0.8 Abs Immature Granulocytes 0.11 (H) Lymphocytes Auto 17.6 Abs Lymphocytes Auto 2.31 Monocytes Auto 9.5 Abs Monocytes Auto 1.25 Eosinophils Auto 0.1 Abs Eosinophils Auto 0.01 Basophils Auto 0.3 Abs Basophils Auto 0.04 Sodium 137 Potassium 4.0 Chloride 104 CO2, POC 19 (L) Anion Gap 14 BUN 31 (H) Creatinine 1.8 (H) Bun / Creat Ratio 17 Glucose 217 (H) Calcium 8.5 (L) Protein, Total 7.1 Albumin 3.4 (L) Globulin 3.7 A/G Ratio 0.9 (L) eGFR 33 (L) Bilirubin Total 0.6 Aspartate Aminotrans (AST/SGOT) 46 Alanine Aminotrans (ALT) 54 (H) Alkaline Phosphatase 109 Lactic Acid 1.3 High Sensitivity Troponin T 79 (HH) proBNP, N-terminal 2,385 (H) Triglycerides 210 (H) Procalcitonin 1.14 (H) TSH, Highly Sensitive 2.76 pH, Arterial 7.30 (L) Venous Blood PH 7.24 (L) pCO2, Arterial 38 Venous pCO2 51 (H) CO2, Total 20 (L) pO2, Arterial 141 (H) Venous pO2 65 (H) O2 Saturation, Arterial 99.1 (H) O2 Saturation, Venous 91.1 P/F Ratio 353 Base Deficiency 7.0 5.7 Hemogloblin, Total 10.8 (L) 6.3 (L) Carboxyhemoglobin 1.0 2.2 (H) Methemoglobin 0.7 0.7 O2 Content, Arterial 15.0 (L) Venous O2 Content 5.6 (L) Venous Total CO2 23 Respiratory Info VENT 40% VENT 100% (HH): Data is critically high (H): Data is abnormally high (L): Data is abnormally low BC x2 pending Resp PCR negative XR chest: 1. ETT placement. Recommend retraction. 2. Stable bilateral infiltrates. 3. Superior mediastinal prominence. Consider CT follow-up correlation as clinically warranted. Thismay reflect technique. XR Abd: The lower abdomen and right abdomen are cut off the image. The tip and sidehole of a presumed nasogastric tube project over the left upper quadrant, below the diaphragm. Suspect hepatosplenomegaly. No evidence of intestinal obstruction or free air. Mild degenerative changes of the spine. The patient is status post cholecystectomy. Orders/Treatment Plan: Neuro: Henao Agitation Sedation Scale (RASS) / Modified RASS: -2-->Wakes slowly, very drowsy/light sedation Acute metabolic encephalopathy S/p arrest Was able to follow commands off prop Sedate with prop Opiate PRN Can hold off CT head as she is following commands Not a TTM candidate, treat fevers aggressively Resp: Ventilation Mode (Bellavista): Pressure Assist Control Ventilaton Rate Set (breaths/min) (Bellavista): 18 Vt Set ml (Bellavista): 22 PEEP (cm H2O) (Bellavista): 12 mbar Acute hypoxemic respiratory failure CXR with evidence of fluid overload Suspect flash pulmonary edema PE possible but given chest x-ray findings we will hold off CTA Obtain lower extremity Dopplers Ventilate with tidal volume 68 cc/kg ideal body weight, maintain plateau pressure less than 30 and driving pressure less than 15 ABG improving CV: Shock, likely cardiogenic and septic NSTEMI type II, demand EKG nonischemic Trend troponin Levophed, goal MAP > 65 Start vaso Obtain echo Obtain mixed venous History of HFrEF 20%? Elevated proBNP Diuresis with goal net -1 to 2 L Cardiology consult GI: NPO Hold tube feeds due to high pressor requirement Renal: GILBERTO Unclear baseline Monitor electrolytes Diuresis as above Tate in place Intake/Output Summary (Last 24 hours) at 11/10/2024 0826 Last data filed at 11/10/2024 0800 Gross per 24 hour Intake -- Output 125 ml Net -125 ml No intake/output data recorded. Endo: Monitor glucose Heme/Onc: Anemia Monitor H/H, goal 03/21 No evidence of bleeding ID: Suspected pneumonia Vanc/cefepime/azithro MRSA PCR Strep/legionella Blood and resp culture Plan per Cardiology - Please give another dose of IV lasix 40mg today. Would recommend starting IV Lasix 40 mg twice daily tomorrow morning as well. - Please monitor her urine output strictly - Would hold off on GDMT for now. We can slowly reduce depending on how patient improves - Given recent diagnosis of HFrEF, would advise checking iron, transferrin, ferritin, HIV, hepatitis B and C as part of new reduced heart failure workup - Please maintain on telemetry. Monitor BMP/mag closely; please aim for K 4< and Mg 2<. She has an elevated creatinine of 1.8-may be a baseline but may also be GILBERTO on CKD (no prior data available) - Please trend troponin to plateau / downtrend - Please follow-up bilateral DVT studies. Given that patient has presented in the setting of what seems to be due to respiratory arrests, we would advise the team to consider PE as a possible differential. However, her TTE today did not show any evidence of right heart strain. Agree with starting with bilateral duplex scans of the legs first. -Per patient's history and report of prior abnormal stress test for fixed ischemia in the mid inferior, basal inferior, and apical inferior haq, patient likely will need further ischemic evaluation- we will discuss further whether needs to be inpatient or outpatient. - Please check A1c Medications: Scheduled Meds: azithromycin, 500 mg, Intravenous, Q24H cefepime, 2 g, Intravenous, Q12H chlorhexidine gluconate, , Topical, Daily heparin (porcine), 5,000 Units, Subcutaneous, Q8H MILO senna-docusate, 2 tablet, Oral, Nightly vancomycin, , Pharmacy Protocol Orders, Pharmacy Protocol Orders Continuous Infusions: norepinephrine (LEVOPHED) IV infusion, 2-60 mcg/min, Last Rate: 2 mcg/min (11/10/24 1345) VASOpressin, 0.03 Units/min, Last Rate: Stopped (11/10/24 1331) PRN Meds: bisacodyl HYDROmorphone lactulose naloxone perflutren lipid microsphere (DEFINITY) 1.3 mL in sodium chloride (NS) 0.9 % 10 mL Lasix 40 mg IV x1 Dilaudid 1 mg IV x3 Vancomycin 2 gm IV x1 Propofol gtt, dc'd Bed Type: ICU documented in this encounter Plan of Treatment Scheduled Orders Name Type Priority Associated Diagnoses Orde r Schedule MAN Archive for reference only CR Imaging Routine 11/10/2024 unt il discontinued, 1 completed MAN Archive for reference only CR Imaging Routine 11/10/2024 unt il discontinued, 1 completed Scheduled Referrals Name Type Priority Associated Diagnoses Order Schedule Amb Referral to Cardiology Outpatient Referral Routine Cardiac arrest (HCC) Cardiomyopathy (HCC) Ordered: 11/17/2024 documented as of this encounter Procedures Procedure Name Priority Date/Time Associated Diagnosis Comments POCT GLUCOSE, FINGERSTICK (CHARGE) Routine 11/18/2024 7:53 AM EDT POCT GLUCOSE, FINGERSTICK (CHARGE) Routine 11/17/2024 8:39 PM EDT POCT GLUCOSE, FINGERSTICK (CHARGE) Routine 11/17/2024 5:29 PM EDT POCT GLUCOSE, FINGERSTICK (CHARGE) Routine 11/17/2024 12:08 PM EDT BASIC METABOLIC PANEL Routine 11/17/2024 10:32 AM EDT COMPLETE BLOOD COUNT, WITH DIFFERENTIAL Routine 11/17/2024 8:32 AM EDT HEPARIN ASSAY (ANTI-XA) Routine 11/18/19 8:32 AM EDT POCT GLUCOSE, FINGERSTICK (CHARGE) Routine 11/17/2024 7:53 AM EDT HEPARIN ASSAY (ANTI-XA) Routine 11/18/19 2:34 AM EDT POCT GLUCOSE, FINGERSTICK (CHARGE) Routine 11/16/2024 8:59 PM EDT POCT GLUCOSE, FINGERSTICK (CHARGE) Routine 11/16/2024 5:37 PM EDT CARDIAC CATHETERIZATION Routine 11/17/19 5:10 PM EDT POCT O2 SATURATION (AVOX) (NO CHARGE) Routine 11/16/2024 4:39 PM EDT POCT GLUCOSE, FINGERSTICK (CHARGE) Routine 11/16/2024 12:09 PM EDT HEPARIN ASSAY (ANTI-XA) Routine 11/17/19 11:30 AM EDT COMPLETE BLOOD COUNT, WITHOUT DIFFERENTIAL Routine 11/16/2024 7:50 AM EDT MAGNESIUM Routine 11/16/2024 7:50 AM EDT BASIC METABOLIC PANEL Routine 11/16/2024 7:50 AM EDT POCT GLUCOSE, FINGERSTICK (CHARGE) Routine 11/16/2024 7:39 AM EDT HEPARIN ASSAY (ANTI-XA) Routine 11/17/19 2:16 AM EDT POCT GLUCOSE, FINGERSTICK (CHARGE) Routine 11/15/2024 8:49 PM EDT COMPLETE BLOOD COUNT, WITH DIFFERENTIAL Routine 11/15/2024 7:28 PM EDT PARTIAL THROMBOPLASTIN TIME (PTT) Routine 11/15/2024 7:28 PM EDT PROTIME-INR Routine 11/15/2024 7:28 PM EDT HEPARIN ASSAY (ANTI-XA) Routine 11/16/19 7:28 PM EDT POCT GLUCOSE, FINGERSTICK (CHARGE) Routine 11/15/2024 5:01 PM EDT POCT GLUCOSE, FINGERSTICK (CHARGE) Routine 11/15/2024 12:04 PM EDT COMPLETE BLOOD COUNT, WITHOUT DIFFERENTIAL Routine 11/15/2024 8:40 AM EDT MAGNESIUM Routine 11/15/2024 8:40 AM EDT BASIC METABOLIC PANEL Routine 11/15/2024 8:40 AM EDT POCT GLUCOSE, FINGERSTICK (CHARGE) Routine 11/15/2024 8:29 AM EDT POCT GLUCOSE, FINGERSTICK (CHARGE) Routine 11/14/2024 9:14 PM EDT POCT GLUCOSE, FINGERSTICK (CHARGE) Routine 11/14/2024 5:29 PM EDT POCT GLUCOSE, FINGERSTICK (CHARGE) Routine 11/14/2024 12:12 PM EDT POCT GLUCOSE, FINGERSTICK (CHARGE) Routine 11/14/2024 8:20 AM EDT COMPLETE BLOOD COUNT, WITHOUT DIFFERENTIAL Routine 11/14/2024 6:50 AM EDT PHOSPHORUS Routine 11/14/2024 6:50 AM EDT MAGNESIUM Routine 11/14/2024 6:50 AM EDT BASIC METABOLIC PANEL Routine 11/14/2024 6:50 AM EDT US RENAL Routine 11/13/2024 11:06 PM EDT POCT GLUCOSE, FINGERSTICK (CHARGE) Routine 11/13/2024 8:45 PM EDT POCT GLUCOSE, FINGERSTICK (CHARGE) Routine 11/13/2024 4:14 PM EDT PHOSPHORUS Routine 11/13/2024 12:05 PM EDT MAGNESIUM Routine 11/13/2024 12:05 PM EDT BASIC METABOLIC PANEL Routine 11/13/2024 12:05 PM EDT POCT GLUCOSE, FINGERSTICK (CHARGE) Routine 11/13/2024 11:52 AM EDT ECG 12-LEAD Routine 11/13/2024 8:07 AM EDT POCT GLUCOSE, FINGERSTICK (CHARGE) Routine 11/13/2024 7:31 AM EDT POCT GLUCOSE, FINGERSTICK (CHARGE) Routine 11/12/2024 11:51 PM EDT HEMOGLOBIN A1C WITH ESTIMATED AVERAGE GLUCOSE Routine 11/12/2024 11:50 PM EDT HEPARIN ASSAY (ANTI-XA) Routine 11/13/19 11:50 PM EDT COMPLETE BLOOD COUNT, WITHOUT DIFFERENTIAL Routine 11/12/2024 11:50 PM EDT PHOSPHORUS Routine 11/12/2024 11:50 PM EDT MAGNESIUM Routine 11/12/2024 11:50 PM EDT BASIC METABOLIC PANEL Routine 11/12/2024 11:50 PM EDT POCT GLUCOSE, FINGERSTICK (CHARGE) Routine 11/12/2024 8:08 PM EDT EXTUBATION Routine 11/12/2024 4:52 PM EDT POCT GLUCOSE, FINGERSTICK (CHARGE) Routine 11/12/2024 3:12 PM EDT PHOSPHORUS Routine 11/12/2024 1:12 PM EDT MAGNESIUM Routine 11/12/2024 1:12 PM EDT BASIC METABOLIC PANEL Routine 11/12/2024 1:12 PM EDT POCT GLUCOSE, FINGERSTICK (CHARGE) Routine 11/12/2024 11:37 AM EDT BLOOD GAS WITH COOXIMETRY, ARTERIAL Routine 11/12/2024 10:15 AM EDT POCT GLUCOSE, FINGERSTICK (CHARGE) Routine 11/12/2024 7:42 AM EDT HEPARIN ASSAY (ANTI-XA) Routine 11/13/19 6:47 AM EDT POCT GLUCOSE, FINGERSTICK (CHARGE) Routine 11/12/2024 3:39 AM EDT HEPARIN ASSAY (ANTI-XA) Routine 11/13/19 25 1:19 AM EDT COMPLETE BLOOD COUNT, WITHOUT DIFFERENTIAL Routine 11/11/2024 11:43 PM EDT PHOSPHORUS Routine 11/11/2024 11:43 PM EDT MAGNESIUM Routine 11/11/2024 11:43 PM EDT BASIC METABOLIC PANEL Routine 11/11/2024 11:43 PM EDT POCT GLUCOSE, FINGERSTICK (CHARGE) Routine 11/11/2024 11:29 PM EDT POCT GLUCOSE, FINGERSTICK (CHARGE) Routine 11/11/2024 7:59 PM EDT HEPARIN ASSAY (ANTI-XA) Routine 11/12/19 6:49 PM EDT POCT GLUCOSE, FINGERSTICK (CHARGE) Routine 11/11/2024 3:55 PM EDT COMPLETE BLOOD COUNT, WITH DIFFERENTIAL Routine 11/11/2024 12:43 PM EDT PARTIAL THROMBOPLASTIN TIME (PTT) Routine 11/11/2024 12:43 PM EDT PROTIME-INR Routine 11/11/2024 12:43 PM EDT IRON AND TOTAL IRON BINDING CAPACITY Routine 11/11/2024 11:24 AM EDT HIV 1/2 AG/AB CMIA REFLEX TO CONFIRMATION Routine 11/11/2024 11:24 AM EDT HEMOGLOBIN AND HEMATOCRIT Routine 11/11/2024 11:24 AM EDT TRANSFERRIN Routine 11/11/2024 11:24 AM EDT PHOSPHORUS Routine 11/11/2024 11:24 AM EDT MAGNESIUM Routine 11/11/2024 11:24 AM EDT FERRITIN Routine 11/11/2024 11:24 AM EDT BASIC METABOLIC PANEL Routine 11/11/2024 11:24 AM EDT VAS VENOUS DUPLEX LEG (DVT)-BILATERAL Routine 11/11/2024 11:21 AM EDT POCT GLUCOSE, FINGERSTICK (CHARGE) Routine 11/11/2024 11:07 AM EDT XR CHEST 1 VIEW-PORTABLE STAT 11/11/2024 7:32 AM EDT POCT GLUCOSE, FINGERSTICK (CHARGE) Routine 11/11/2024 7:11 AM EDT POCT GLUCOSE, FINGERSTICK (CHARGE) Routine 11/11/2024 3:36 AM EDT COMPLETE BLOOD COUNT, WITHOUT DIFFERENTIAL Routine 11/11/2024 12:01 AM EDT PHOSPHORUS Routine 11/11/2024 12:01 AM EDT MAGNESIUM Routine 11/11/2024 12:01 AM EDT HEPATIC FUNCTION PANEL Routine 12:01 AM EDT BASIC METABOLIC PANEL Routine 11/11/2024 12:01 AM EDT POCT GLUCOSE, FINGERSTICK (CHARGE) Routine 11/10/2024 11:33 PM EDT POCT GLUCOSE, FINGERSTICK (CHARGE) Routine 11/10/2024 7:35 PM EDT POCT GLUCOSE, FINGERSTICK (CHARGE) Routine 11/10/2024 3:42 PM EDT XR CHEST 1 VIEW-PORTABLE Routine 11/10/2024 3:07 PM EDT HIGH SENSITIVITY TROPONIN T CARD 11/10/2024 3:00 PM EDT BLOOD GAS WITH COOXIMETRY, ARTERIAL Routine 11/10/2024 3:00 PM EDT PROTIME-INR Routine 11/10/2024 3:00 PM EDT PHOSPHORUS Routine 11/10/2024 3:00 PM EDT MAGNESIUM Routine 11/10/2024 3:00 PM EDT BASIC METABOLIC PANEL Routine 11/10/2024 3:00 PM EDT RESPIRATORY CULTURE (AEROBIC AND GRAM STAIN) STAT 11/10/2024 2:00 PM EDT LEGIONELLA & STREPTOCOCCUS PNEUMONIAE ANTIGEN, URINE STAT 11/10/2024 2:00 PM EDT NASAL MRSA SCREEN, PCR STAT 2:00 PM EDT UREA NITROGEN, URINE, RANDOM STAT 11/10/2024 2:00 PM EDT SODIUM, URINE, RANDOM STAT 11/10/2024 2:00 PM EDT CREATININE, URINE, RANDOM STAT 11/10/2024 2:00 PM EDT ECG 12-LEAD Routine 11/10/2024 1:32 PM EDT POCT GLUCOSE, FINGERSTICK (CHARGE) Routine 11/10/2024 1:25 PM EDT XR ABDOMEN 1 VIEW Routine 11/10/2024 9:5 2 AM EDT ECHOCARDIOGRAM (TTE) COMPREHENSIVE (CONTRAST PRN) STAT 11/10/2024 9:47 AM EDT POCT GLUCOSE, FINGERSTICK (CHARGE) Routine 11/10/2024 9:15 AM EDT RESPIRATORY PCR PANEL STAT 11/10/2024 9:09 AM EDT BLOOD CULTURE (HOSP LAB) STAT 11/10/2024 9:04 AM EDT BLOOD CULTURE (HOSP LAB) STAT 11/10/2024 8:56 AM EDT BLOOD GAS WITH COOXIMETRY, VENOUS STAT 11/10/2024 8:56 AM EDT BLOOD GAS WITH COOXIMETRY, ARTERIAL STAT 11/10/2024 7:50 AM EDT XR CHEST 1 VIEW-PORTABLE STAT 11/10/2024 6:54 AM EDT HIGH SENSITIVITY TROPONIN T STAT 11/10/2024 6:42 AM EDT PROCALCITONIN STAT 11/10/2024 6:42 AM EDT PROBNP, N-TERMINAL STAT 11/10/2024 6: 42 AM EDT COMPLETE BLOOD COUNT, WITH DIFFERENTIAL STAT 11/10/2024 6:42 AM EDT TRIGLYCERIDES STAT 11/10/2024 6:42 AM EDT TSH, HIGHLY SENSITIVE STAT 11/10/2024 6:42 AM EDT LACTIC ACID, PLASMA Routine 11/10/2024 6 :42 AM EDT COMPREHENSIVE METABOLIC PANEL STAT 11/10/2024 6:42 AM EDT ECG 12-LEAD STAT 11/10/2024 6:30 AM EDT POCT GLUCOSE, FINGERSTICK (CHARGE) Routine 11/10/2024 6:28 AM EDT MAN ARCHIVE FOR REFERENCE ONLY CR Routine 11/10/2024 6:15 AM EDT MAN ARCHIVE FOR REFERENCE ONLY CR Routine 11/10/2024 6:10 AM EDT documented in this encounter Results * (ABNORMAL) POCT Glucose, Fingerstick (11/18/2024 7:53 AM EDT) POC Glucose 138(H) 65 - 99 mg/dL 11/18/2024 11:34 AM EDT Blood specimen / Unknown 11/18/2024 7:53 AM EDT 11/18/2024 11:34 AM EDT Satnam Silva MD POINT OF CARE TEST O RDERAGERONIMO Performing Organization Address [facility] Number [facility] See Below * (ABNORMAL) POCT Glucose, Fingerstick (11/17/2024 8:39 PM EDT) POC Glucose 143(H) 65 - 99 mg/dL 11/17/2024 8:39 PM EDT Blood specimen / Unknown 11/17/2024 8:39 PM EDT 11/17/2024 8:40 PM EDT Satnam Silva MD POINT OF CARE TEST O RDERAGERONIMO Performing Organization Address [facility] Phone Number [facility] See Below * (ABNORMAL) POCT Glucose, Fingerstick (11/17/2024 5:29 PM EDT) POC Glucose 113(H) 65 - 99 mg/dL 11/17/2024 5:29 PM EDT Blood specimen / Unknown 11/17/2024 5:29 PM EDT 11/17/2024 5:30 PM EDT Satnam Silva MD POINT OF CARE TEST O RDERAGERONIMO Performing Organization Address [facility] Phone Number HOSPITAL LAB See Below * (ABNORMAL) POCT Glucose, Fingerstick (11/17/2024 12:08 PM EDT) POC Glucose 128(H) 65 - 99 mg/dL 11/17/2024 1:54 PM EDT Blood specimen / Unknown 11/17/2024 12:08 PM EDT 11/17/2024 1:54 PM EDT Satnam Silva MD POINT OF CARE TEST O RDERABLES HOSPITAL LAB See Below * (ABNORMAL) Basic Metabolic Panel (AM) (11/17/2024 10:32 AM EDT) Glucose 138(H) 65 - 99 mg/dL 11/17/2024 11:56 AM T [facility] Comment:Fasting: <100 mg/dL, Non-Fasting: <200 mg/dL (ADA 2005) Blood Urea Nitrogen (BUN) 32(H) 8 - 21 mg/dL 11/17/2024 11:56 [address] [facility] Creatinine 1.2(H) 0.4 - 1.1 mg/dL 11/17/2024 11:56 AM [facility] eGFR 54(L) >59 11/17/2024 11:56 AM [facility] Comment:CKD-EPI (2020) in mL /min/1.73 sq meters. Sodium 137 136 - 145 mmol/L 11/17/2024 11:56 AM [facility] Potassium 3.9 3.4 - 5.3 mmol/L 11/17/2024 11:56 AM [facility] Chloride 102 98 - 107 mmol/L 11/17/2024 11:56 AM [facility] CO2 20(L) 22 - 33 mmol/L 11/17/2024 11:56 AM [facility] Anion Gap 15 7 - 17 11/17/2024 11:56 AM [facility] Calcium 9.6 8.7 - 10.5 mg/dL 11/17/2024 11:56 AM [facility] BUN/Creatinine Ratio 27(H) 10.0 - 25.0 Ratio 11/17/2024 11:56 AM EDT [facility] Blood Blood specimen / Unknown 11/17/2024 10:32 AM EDT 11/17/2024 11:22 AM EDT Yung Giraldo MD LAB BLOOD ORDERABLES Performing Organization Address [facility] Co de Phone Number [facility] [address] [place] [address], [facility] [address] [place] [address] * Heparin Assay (Anti Xa) (11/17/2024 8:32 AM EDT) Anti Xa 0.27 IU/mL 11/17/2024 10:17 AM EDT [facility] Comment: (NOTE) Heparin Thromboembolic/Standard/Full Dose Protocol: Therapeutic Range: ? Age 18+: ? 0.30 - 0.70 IU/mL ? Age 0 - 17: ?? 0.35 - 0.70 IU/mL ? Heparin Cardiac/Low Dose Protocol: ? Therapeutic Range: ? 0.30 - 0.50 IU/mL ? Low Molecular Weight Heparin: ? Therapeutic Range: ? Age 18+: ?? 0.50 - 1.09 IU/mL for twice daily dosing (or adjusted to daily for poor renal function) ? Age 18+: ?? 1.00 - 2.00 ??IU/mL for once daily dosing ? Age 0-17: ??0.50 - 1.00 IU/mL Anticoagulant IV HEPARIN, UNFRACTIONATED 11/17/2024 4:33 AM EDT Blood Blood specimen / Unknown 11/17/2024 8:32 AM EDT 11/17/2024 9:41 AM EDT Srinivasan Mattson MD LAB BLOOD ORDERABLE S Performing Organization Address City/State/[facility] [place] [address], [address] [address] * (ABNORMAL) Complete Blood Count, with Differential (11/17/2024 8:32 AM EDT) White Blood Cell Count 7.1 4.0 - 11.0 Thou/uL 11/17/2024 10:[address] [facility] Platelet Count 286 150 - 450 Thou/uL 11/17/2024 10:02 AM [facility] Hemoglobin 9.0(L) 11.7 - 15.7 g/dL 11/17/2024 10:02 [address] [facility] Hematocrit 29.2(L) 35.0 - 47.0 % 11/17/2024 10:02 AM [facility] Red Blood Cell Count 3.52(L) 4.00 - 5.40 Mil/uL 11/17/2024 10:02 AM [facility] MCV 83 80 - 100 fL 11/17/2024 10:02 AM [facility] MCH 25.6(L) 27.0 - 31.0 pg 11/17/2024 10:02 AM [facility] MCHC 30.8 30.0 - 36.0 g/dL 11/17/2024 10:02 AM [facility] RDW 14.2 11.5 - 14.5 % 11/17/2024 10:02 AM [facility] MPV 9.9 7.5 - 12.5 fL 11/17/2024 10:02 AM [facility] nRBC 0.3(H) 0.0 - 0.1 /100 WBC 11/17/2024 10:02 AM [facility] nRBC, Absolute 0.02 0.00 - 0.02 Thou/uL 11/17/2024 10:02 AM [facility] Myelocytes 1 % 11/17/2024 10:35 AM [facility] Metamyelocytes 3 % 11/17/2024 10:35 AM [facility] Bands Man 1 % 11/17/2024 10:35 AM [facility] Neutrophils Man 69 % 10:35 AM [facility] Comment:Hypersegmented neutr ophils present. Lymphocytes Man 20 % 10:35 AM [facility] Monocytes Man 6 % 11/17/2024 10:35 AM [facility] Abs Myelocytes 0.1(H) 0 Thou/uL 11/17/2024 10:35 AM [facility] Abs Metamyelocytes 0.2(H) 0 Thou/uL 2024 10:35 AM [facility] Abs Neutrophils Count (ANC) 5.0 2.0 - 7.5 Thou/uL 11/17/2024 10:35 AM [facility] Abs Lymphocytes Man 1.4(L) 1.5 - 4.5 Thou/uL 11/17/2024 10:35 AM [facility] Abs Monocytes Man 0.4 0.2 - 1.5 Thou/uL 11/17/2024 10:35 AM [facility] Normochromic Present 11/17/2024 10:35 AM [facility] Normocytic Present 11/17/2024 10:35 AM [facility] Blood Blood specimen / Unknown 11/17/2024 8:32 AM EDT 11/17/2024 9:43 AM EDT Neil Padilla MD LAB BLOOD ORDERABLES Performing Organization Address [facility] Co de Phone Number [facility] [address] [place] [address], [facility] [address] [place] [address] * (ABNORMAL) POCT Glucose, Fingerstick (11/17/2024 7:53 AM EDT) POC Glucose 100(H) 65 - 99 mg/dL 11/17/2024 7:54 AM EDT Blood specimen / Unknown 11/17/2024 7:53 AM EDT 11/17/2024 7:54 AM EDT Satnam Silva MD POINT OF CARE TEST O RDERABLES Performing Organization Address [facility] Co de Phone Number HOSPITAL LAB See Below * Heparin Assay (Anti Xa) (11/17/2024 2:34 AM EDT) Anti Xa 0.31 IU/mL 11/17/2024 3:28 AM EDT [facility] Comment: (NOTE) Heparin Thromboembolic/Standard/Full Dose Protocol: Therapeutic Range: ? Age 18+: ? 0.30 - 0.70 IU/mL ? Age 0 - 17: ?? 0.35 - 0.70 IU/mL ? Heparin Cardiac/Low Dose Protocol: ? Therapeutic Range: ? 0.30 - 0.50 IU/mL ? Low Molecular Weight Heparin: ? Therapeutic Range: ? Age 18+: ?? 0.50 - 1.09 IU/mL for twice daily dosing (or adjusted to daily for poor renal function) ? Age 18+: ?? 1.00 - 2.00 ??IU/mL for once daily dosing ? Age 0-17: ??0.50 - 1.00 IU/mL Anticoagulant IV HEPARIN, UNFRACTIONATED 11/16/2024 9:05 PM EDT Blood Blood specimen / Unknown 11/17/2024 2:34 AM EDT 11/17/2024 2:55 AM EDT Srinivasan Mattson MD LAB BLOOD ORDERABLE S [address] [address], [address] [address] * (ABNORMAL) POCT Glucose, Fingerstick (11/16/2024 8:59 PM EDT) POC Glucose 114(H) 65 - 99 mg/dL 11/16/2024 10:14 PM EDT Blood specimen / Unknown 11/16/2024 8:59 PM EDT 11/16/2024 10:14 PM EDT Satnam Silva MD POINT OF CARE TEST [facility] LAB See Below * (ABNORMAL) POCT Glucose, Fingerstick (11/16/2024 5:37 PM EDT) POC Glucose 107(H) 65 - 99 mg/dL 11/16/2024 5:42 PM EDT Blood specimen / Unknown 11/16/2024 5:37 PM EDT 11/16/2024 5:42 PM EDT Satnam Silva MD POINT OF CARE TEST O GENE Performing Organization Address [facility] Co de Phone Number HOSPITAL LAB See Below * CC CORANGIO +LV+L/R CATH (11/16/2024 5:10 PM EDT) Anatomical Region Laterality Modality Radiographic Brian ging Narrative 11/16/2024 5:30 PM EDT Table formatting from the original result was not included. Images from the original result were not included. [facility] Heart & Vascular [place] [facility] - Cardiac Catheterization Laboratory PATIENT DEMOGRAPHIC INFORMATION Name: Marli Hanna : 1970 54 y.o. Sex: female Gender: female Procedure Date: 11/16/2024 Referring Physician: Yung Giraldo Referring Escort Service Attendant: Nan Dietz PCP: No primary care provider on file. Procedure(s): Procedures: ??* CORONARY ANGIO W/LV+LT/RT CATH CONCLUSIONS/RECOMMENDATIONS Minimal nonobstructive coronary disease with isolated moderate to severe stenosis in a small ramus intermediate. ?? 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 CAD and heart failure CLINICAL HISTORY 54-year-old female with a history of type 2 diabetes, hypertension, hyperlipidemia, with recent admission in September to [facility] after being transferred from [facility] for respiratory failure requiring intubation. ??An echo demonstrated severely reduced EF of 20 to 30%. ??Was released home. ??Approximately a week ago she developed abrupt onset of dyspnea while going to the bathroom. ??Collapse while being transported to the ED on Nov 10. ??Required brief CPR and was intubated and subsequently extubated 2 days later on the . ??High-sensitivity troponin was minimally elevated. ??ECG demonstrated sinus rhythm PVCs and left bundle branch block. ??An echo demonstrates EF of 25% normal RV size and systolic function. ??In addition she has a partial DVT in her right common femoral vein. ??She is now referred for left and right heart cath. Denies any chest pain recently. ??Denies any history of stroke, bleeding or need for upcoming invasive procedures. ??Access will be right radial and brachial with femoral backup. Risks, benefits and alternatives to cardiac catheterization, coronary angiography, potential PCI and moderate conscious sedation were discussed with the patient. ??Risks including but not limited to WI, stroke, bleeding/vascular complications, emergency cardiac surgery, adverse reaction to contrast or sedation, emergency defibrillation, endotracheal intubation, catheter induced complications such as dissections, acute kidney injury, anaphylactic or other types of reaction to contrast, need for prolonged dual antiplatelet therapy with heightened risk of bleeding and needing to defer elective surgery in the event of PCI was all discussed with the patient. ??The benefit of obtaining diagnostic and prognostic information and performing revascularization of appropriate anatomy for symptom relief, reduction in recurrent WI and mortality was discussed with the patient. ??The alternative of not proceeding with cath and medical therapy alone or additional noninvasive testing was discussed with the patient. ??She voiced understanding wishes to proceed ASA class III Mallampati: 1 PROCEDURE Venous Access: Ultrasound-guided left common femoral vein with micropuncture kit--(right antecubital/brachial veins appear sclerotic and/or chronically thrombosed in the antecubital fossa) 5 [place] sheath placed in L CFV Arterial Access: Ultrasound-guided right radial artery with 6 Cuban slender glide sheath Diagnostic catheters: 5 Cuban balloontipped PA catheter, 5 Cuban JR4, 5 Cuban JL 3.5 Final contrast: 19 mL Hemostasis: Manual compression for the venous access site, TR band for the radial access site with 12 cc of air. ??Patent hemostasis documented by plethysmography Complications: None PROCEDURE FINDINGS Tracings available in [employer] log report Pressures Site ?? RA 9 mmHg/8 mmHg (7 mmHg) RV 43 mmHg/-1 mmHg 5 mmHg PA 34 mmHg/18 mmHg (22 mmHg) PCW 14 mmHg/13 mmHg (11 mmHg) LV 163 mmHg/9 mmHg 25 mmHg AO 125 mmHg/71 mmHg (93 mmHg) O2 Sats ?? IVC ?? SVC 61.9 % RA 55.6 % PA 52.5 % PCW 85.8 % AO 92.1 % Mean Gradient Peak Valve Area Aortic (Malina) 0 mmHg 0 mmHg ?? Aortic 0 mmHg 0 mmHg ?? Mitral (Malina) ? Cardiac Output/Resistances/Shunts: CO = 4.54 L/min ; CI = 2.5 L/min/kg2 SVR = 1871.15 PVR = 192.73 QS = 5.96 Findings ?? Diagnostic ??Dominance: Right Left Main Long left main with mild distal disease. ??Divides into LAD small to moderate ramus intermediate and circumflex branches. Left Anterior Descending Proximal mid and distal LAD with only mild luminal irregularity. ??Small to moderate diagonal branch taking off from the mid LAD is widely patent as well. ??Type III LAD which wraps around the apex and supplies the inferior interventricular groove Ramus Intermedius Small to moderate ramus intermediate has a proximal 60 to 70% stenosis Left Circumflex Non-dominant vessel. ??Proximal mid AV groove circumflex with minimal luminal irregularity. ??Very small OM1, moderate-sized OM 2, large OM 3, small to moderate OM 4 are all widely patent Right Coronary Artery Dominant vessel. ??The right coronary artery has minimal luminal irregularity. ??Distally, a branch of the PDA terminates into a small complex of intramyocardial vessels. Complications: None Anesthesia: The procedure was performed under moderate conscious sedation by an independent trained observer (RN) and supervised by the under signed attending . See meds list. Sedation Time: 39 minutes 22 seconds Contrast Used: Med Administrations and Associated Flowsheet Values (last 24 hours) ?? Date/Time Action Medication Dose 11/16/24 1710 Given iohexol (OMNIPAQUE) 350 mg/mL injection 18 mL Estimated Blood Loss: 10 mL ?? Verbal Orders and Supervisory Attestation: As the attending physician, I verify I was present throughout the entire procedure and provided physician orders as documented in the specialty electronic documentation system. Furthermore I directly supervised all non physicians providers who assisted me during the procedure and I accept delegation of supervisory responsibility for all post procedure patient care activity related to this patient that I request from a [facility] PA/REJI/fellow/staff member. 11/16/2024 ??5:25 PM Coronary Findings Diagnostic Dominance: Right Left Main: Long left main with mild distal disease. Divides into LAD small to moderate ramus intermediate and circumflex branches. Left Anterior Descending: Proximal mid and distal LAD with only mild luminal irregularity. Small to moderate diagonal branch taking off from the mid LAD is widely patent as well. Type III LAD which wraps around the apex and supplies the inferior interventricular groove Ramus Intermedius: Small to moderate ramus intermediate has a proximal 60 to 70% stenosis Left Circumflex: Non-dominant vessel. Proximal mid AV groove circumflex with minimal luminal irregularity. Very small OM1, moderate-sized OM 2, large OM 3, small to moderate OM 4 are all widely patent Right Coronary Artery: Dominant vessel. The right coronary artery has minimal luminal irregularity. Distally, a branch of the PDA terminates into a small complex of intramyocardial vessels. Intervention No interventions have been documented. Cardiac Protocol CAD and heart failure Carlos Herman MD CV CARDIAC CATH FANNIE BURNETTE * (ABNORMAL) POCT O2 Saturation (AVOX) (11/16/2024 4:39 PM EDT) [facility] 61.9 60 - 75 % RA 55.6(A) 60 - 75 % PA 52.5(A) 60 - 75 % PCW 85.8(A) 93 - 99 % AO 92.1(A) 95 - 99 % Lot Number [id number] [employer] Pass Blood 11/16/2024 4:39 PM EDT Carlos Herman MD POINT OF CARE TEST O RDERABLES * (ABNORMAL) POCT Glucose, Fingerstick (11/16/2024 12:09 PM EDT) POC Glucose 127(H) 65 - 99 mg/dL 11/16/2024 12:55 PM EDT Blood specimen / Unknown 11/16/2024 12:09 PM EDT 11/16/2024 12:55 PM EDT Satnam Silva MD POINT OF CARE TEST O RDERABLES HOSPITAL LAB See Below * Heparin Assay (Anti Xa) (11/16/2024 11:30 AM EDT) Pathologist [facility] Anti Xa 0.48 IU/mL 11/16/2024 1:24 PM EDT [facility] Comment: (NOTE) Heparin Thromboembolic/Standard/Full Dose Protocol: Therapeutic Range: ? Age 18+: ? 0.30 - 0.70 IU/mL ? Age 0 - 17: ?? 0.35 - 0.70 IU/mL ? Heparin Cardiac/Low Dose Protocol: ? Therapeutic Range: ? 0.30 - 0.50 IU/mL ? Low Molecular Weight Heparin: ? Therapeutic Range: ? Age 18+: ?? 0.50 - 1.09 IU/mL for twice daily dosing (or adjusted to daily for poor renal function) ? Age 18+: ?? 1.00 - 2.00 ??IU/mL for once daily dosing ? Age 0-17: ??0.50 - 1.00 IU/mL Anticoagulant IV HEPARIN, UNFRACTIONATED 11/16/2024 4:59 AM EDT Blood Blood specimen / Unknown 11/16/2024 11:30 AM EDT 11/16/2024 12:30 PM EDT Neil Padilla MD LAB BLOOD ORDERABLES Performing Organization Address [facility] [place] [address], [place] [address] * MAGNESIUM (11/16/2024 7:50 AM EDT) [facility] Magnesium 2.1 1.6 - 2.7 mg/dL 11/16/2024 9:09 AM EDT [facility] Blood Blood specimen / Unknown 11/16/2024 7:50 AM EDT 11/16/2024 8:31 AM EDT Neil Padilla MD LAB BLOOD ORDERABLES Performing Organization Address [facility] [place] [place] [address], [place] [address] * (ABNORMAL) COMPLETE BLOOD COUNT, WITHOUT DIFFERENTIAL (11/16/2024 7:50 AM EDT) [facility] White Blood Cell Count 7.7 4.0 - 11.0 Thou/uL 11/16/2024 8:52 [address] [facility] Platelet Count 300 150 - 450 Thou/uL 11/16/2024 8:52 AM [facility] Hemoglobin 9.4(L) 11.7 - 15.7 g/dL 11/16/2024 8:52 AM [facility] Hematocrit 30.1(L) 35.0 - 47.0 % 11/16/2024 8:52 AM [facility] Red Blood Cell Count 3.72(L) 4.00 - 5.40 Mil/uL 11/16/2024 8:52 AM [facility] MCV 81 80 - 100 fL 11/16/2024 8:52 AM [facility] MCH 25.3(L) 27.0 - 31.0 pg 11/16/2024 8:52 AM [facility] MCHC 31.2 30.0 - 36.0 g/dL 11/16/2024 8:52 AM [facility] RDW 13.8 11.5 - 14.5 % 11/16/2024 8:52 AM [facility] MPV 9.7 7.5 - 12.5 fL 11/16/2024 8:52 AM [facility] nRBC 0.3(H) 0.0 - 0.1 /100 WBC 11/16/2024 8:52 AM [facility] nRBC, Absolute 0.02 0.00 - 0.02 Thou/uL 11/16/2024 8:52 AM [facility] Blood Blood specimen / Unknown 11/16/2024 7:50 AM EDT 11/16/2024 8:31 AM EDT Neil Padilla MD LAB BLOOD ORDERABLES [address] [address], [address] [address] * (ABNORMAL) BASIC METABOLIC PANEL (11/16/2024 7:50 AM EDT) Glucose 115(H) 65 - 99 mg/dL 11/16/2024 9:09 AM [facility] Comment:Fasting: <100 mg/dL, Non-Fasting: <200 mg/dL (ADA 2004) Blood Urea Nitrogen (BUN) 43(H) 8 - 21 mg/dL 11/16/2024 9:09 AM [facility] Creatinine 1.4(H) 0.4 - 1.1 mg/dL 11/16/2024 9:09 AM [facility] eGFR 45(L) >59 11/16/2024 9:09 AM [facility] Comment:CKD-EPI (2020) in mL /min/1.73 sq meters. Sodium 134(L) 136 - 145 mmol/L 11/16/2024 9:09 AM [facility] Potassium 3.7 3.4 - 5.3 mmol/L 11/16/2024 9:09 AM [facility] Chloride 99 98 - 107 mmol/L 11/16/2024 9:09 AM [facility] CO2 23 22 - 33 mmol/L 11/16/2024 9:09 AM [facility] Anion Gap 12 7 - 17 11/16/2024 9:09 AM [facility] Calcium 9.7 8.7 - 10.5 mg/dL 11/16/2024 9:09 AM [facility] BUN/Creatinine Ratio 31(H) 10.0 - 25.0 Ratio 11/16/2024 9:09 AM [facility] Blood Blood specimen / Unknown 11/16/2024 7:50 AM EDT 11/16/2024 8:31 AM EDT Neil Padilla MD LAB BLOOD ORDERABLES [address] [address], [address] [address] * (ABNORMAL) POCT Glucose, Fingerstick (11/16/2024 7:39 AM EDT) POC Glucose 119(H) 65 - 99 mg/dL 11/16/2024 7:48 AM EDT Blood specimen / Unknown 11/16/2024 7:39 AM EDT 11/16/2024 7:46 AM EDT Satnam Silva MD POINT OF CARE TEST O RDERABLES HOSPITAL LAB See Below * Heparin Assay (Anti Xa) (11/16/2024 2:16 AM EDT) Anti Xa 0.87 IU/mL 11/16/2024 3:03 AM EDT [facility] Comment: (NOTE) Heparin Thromboembolic/Standard/Full Dose Protocol: Therapeutic Range: ? Age 18+: ? 0.30 - 0.70 IU/mL ? Age 0 - 17: ?? 0.35 - 0.70 IU/mL ? Heparin Cardiac/Low Dose Protocol: ? Therapeutic Range: ? 0.30 - 0.50 IU/mL ? Low Molecular Weight Heparin: ? Therapeutic Range: ? Age 18+: ?? 0.50 - 1.09 IU/mL for twice daily dosing (or adjusted to daily for poor renal function) ? Age 18+: ?? 1.00 - 2.00 ??IU/mL for once daily dosing ? Age 0-17: ??0.50 - 1.00 IU/mL Anticoagulant IV HEPARIN, UNFRACTIONATED 11/15/2024 7:57 PM EDT Blood Blood specimen / Unknown 11/16/2024 2:16 AM EDT 11/16/2024 2:38 AM EDT Neil Padilla MD LAB BLOOD ORDERABLES Performing Organization Address [facility] [place] [address], [place] [address] * (ABNORMAL) POCT Glucose, Fingerstick (11/15/2024 8:49 PM EDT) POC Glucose 187(H) 65 - 99 mg/dL 11/15/2024 8:57 PM EDT Blood specimen / Unknown 11/15/2024 8:49 PM EDT 11/15/2024 8:56 PM EDT Satnam Silva MD POINT OF CARE TEST O RDERABLES Performing Organization Address [facility] Co de Phone Number HOSPITAL LAB See Below * Yes, Order Baseline Heparin Assay (Anti-Xa) (11/15/2024 7:28 PM EDT) Anti Xa 0.87 IU/mL 11/15/2024 8:11 PM EDT [facility] Comment: (NOTE) Heparin Thromboembolic/Standard/Full Dose Protocol: Therapeutic Range: ? Age 18+: ? 0.30 - 0.70 IU/mL ? Age 0 - 17: ?? 0.35 - 0.70 IU/mL ? Heparin Cardiac/Low Dose Protocol: ? Therapeutic Range: ? 0.30 - 0.50 IU/mL ? Low Molecular Weight Heparin: ? Therapeutic Range: ? Age 18+: ?? 0.50 - 1.09 IU/mL for twice daily dosing (or adjusted to daily for poor renal function) ? Age 18+: ?? 1.00 - 2.00 ??IU/mL for once daily dosing ? Age 0-17: ??0.50 - 1.00 IU/mL Anticoagulant OTHER AGENT OR UNKNOWN 11/15/2024 6:53 PM EDT Blood Blood specimen / Unknown 11/15/2024 7:28 PM EDT 11/15/2024 7:47 PM EDT Neil Padilla MD LAB BLOOD ORDERABLES Performing Organization Address City/[facility]/ZIP Co de Phone Number [address] [address], [address] [address] * (ABNORMAL) Partial Thromboplastin Time (PTT) (11/15/2024 7:28 PM EDT) [facility] Anticoagulant IV HEPARIN, UNFRACTIONATED 11/15/2024 6:52 PM EDT Partial Thromboplastin Time (PTT) 47(H) 25 - 36 seconds 11/15/2024 8:11 PM EDT [facility] Blood Blood specimen / Unknown 11/15/2024 7:28 PM EDT 11/15/2024 7:47 PM EDT Neil Padilla MD LAB BLOOD ORDERABLES Performing Organization Address [facility] [place] [address], [address] [address] * Protime-INR (11/15/2024 7:28 PM EDT) [facility] Anticoagulant IV HEPARIN, UNFRACTIONATED 11/15/2024 6:52 PM EDT Prothrombin Time (PT) 12.3 10.0 - 13.5 seconds 11/15/2024 8:11 PM EDT [facility] INR 1.1 11/15/2024 8:11 PM EDT [facility] Comment:INR Therapeutic Rang es: Standard dose anticoagulant 2.0 to 3.0, High dose anticoagulant 2.5-3.5. Blood Blood specimen / Unknown 11/15/2024 7:28 PM EDT 11/15/2024 7:47 PM EDT Neil Padilla MD LAB BLOOD ORDERABLES Performing Organization Address City/[facility] [place] [address], [address] [address] * (ABNORMAL) Complete Blood Count, with Differential (11/15/2024 7:28 PM EDT) [facility] White Blood Cell Count 7.4 4.0 - 11.0 Thou/uL 11/15/2024 8:02 [address] [facility] Platelet Count 304 150 - 450 Thou/uL 11/15/2024 8:02 PM [facility] Hemoglobin 9.4(L) 11.7 - 15.7 g/dL 11/15/2024 8:02 PM [facility] Hematocrit 29.8(L) 35.0 - 47.0 % 11/15/2024 8:02 PM [facility] Red Blood Cell Count 3.69(L) 4.00 - 5.40 Mil/uL 11/15/2024 8:02 PM [facility] MCV 81 80 - 100 fL 11/15/2024 8:02 PM [facility] MCH 25.5(L) 27.0 - 31.0 pg 11/15/2024 8:02 PM [facility] MCHC 31.5 30.0 - 36.0 g/dL 11/15/2024 8:02 PM [facility] RDW 13.8 11.5 - 14.5 % 11/15/2024 8:02 PM [facility] MPV 9.9 7.5 - 12.5 fL 11/15/2024 8:02 PM [facility] nRBC 0.4(H) 0.0 - 0.1 /100 WBC 11/15/2024 8:02 PM [facility] nRBC, Absolute 0.03(H) 0.00 - 0.02 Thou/uL 11/15/2024 8:02 PM [facility] Neutrophils Auto 58.6 % 11/16/19 8:02 PM [facility] Immature Granulocytes 4.6 % 11/15/2024 8:02 PM [facility] Lymphocytes Auto 25.3 % 11/16/19 8:02 PM [facility] Monocytes Auto 10.9 % 11/15/2024 8:02 PM [facility] Eosinophils Auto 0.3 % 11/16/19 8:02 PM [facility] Basophils Auto 0.3 % 11/15/2024 8:02 PM [facility] Abs Neutrophils Auto 4.37 2.00 - 7.50 Thou/uL 11/15/2024 8:02 PM EDT [facility] Abs Immature Granulocytes 0.34(H) 0.00 - 0.10 Thou/uL 11/15/2024 8:02 PM EDT [facility] Abs Lymphocytes Auto 1.88 1.50 - 4.50 Thou/uL 11/15/2024 8:02 PM EDT [facility] Abs Monocytes Auto 0.81 0.20 - 1.50 Thou/uL 11/15/2024 8:02 PM EDT [facility] Abs Eosinophils Auto 0.02 0.00 - 0.70 Thou/uL 11/15/2024 8:02 PM EDT [facility] Abs Basophils Auto 0.02 0.00 - 0.20 Thou/uL 11/15/2024 8:02 PM EDT [facility] Blood Blood specimen / Unknown 11/15/2024 7:28 PM EDT 11/15/2024 7:47 PM EDT Neil Padilla MD [place] [address], [place] [address] * (ABNORMAL) POCT Glucose, Fingerstick (11/15/2024 5:01 PM EDT) POC Glucose 129(H) 65 - 99 mg/dL 11/15/2024 5:07 PM EDT Blood specimen / Unknown 11/15/2024 5:01 PM EDT 11/15/2024 5:07 PM EDT Satnam Silva MD POINT OF CARE TEST O RDERABLES HOSPITAL LAB See Below * (ABNORMAL) POCT Glucose, Fingerstick (11/15/2024 12:04 PM EDT) POC Glucose 148(H) 65 - 99 mg/dL 11/15/2024 12:11 PM EDT Blood specimen / Unknown 11/15/2024 12:04 PM EDT 11/15/2024 12:11 PM EDT Satnam Silva MD POINT OF CARE TEST O RDERABLES HOSPITAL LAB See Below * MAGNESIUM (11/15/2024 8:40 AM EDT) Magnesium 2.2 1.6 - 2.7 mg/dL 11/15/2024 9:45 AM EDT [facility] Blood Blood specimen / Unknown 11/15/2024 8:40 AM EDT 11/15/2024 9:20 AM EDT Neil Padilla MD LAB BLOOD ORDERABLES Performing Organization Address [facility] [place] [address], [place] [address] * (ABNORMAL) COMPLETE BLOOD COUNT, WITHOUT DIFFERENTIAL (11/15/2024 8:40 AM EDT) White Blood Cell Count 7.1 4.0 - 11.0 Thou/uL 11/15/2024 9:37 AM EDT [facility] Platelet Count 306 150 - 450 Thou/uL 11/15/2024 9:37 [address] [facility] Hemoglobin 9.9(L) 11.7 - 15.7 g/dL 11/15/2024 9:37 AM [facility] Hematocrit 30.9(L) 35.0 - 47.0 % 11/15/2024 9:37 AM [facility] Red Blood Cell Count 3.84(L) 4.00 - 5.40 Mil/uL 11/15/2024 9:37 AM EDT [facility] MCV 81 80 - 100 fL 11/15/2024 9:37 AM T [facility] MCH 25.8(L) 27.0 - 31.0 pg 11/15/2024 9:37 AM EDT [facility] MCHC 32.0 30.0 - 36.0 g/dL 11/15/2024 9:37 AM [facility] RDW 13.9 11.5 - 14.5 % 11/15/2024 9:37 AM [facility] MPV 10.1 7.5 - 12.5 fL 11/15/2024 9:37 AM [facility] nRBC 0.3(H) 0.0 - 0.1 /100 WBC 11/15/2024 9:37 AM [facility] nRBC, Absolute 0.02 0.00 - 0.02 Thou/uL 11/15/2024 9:37 AM [facility] Blood Blood specimen / Unknown 11/15/2024 8:40 AM EDT 11/15/2024 9:20 AM EDT [facility] Padilla MD [place] [address], [place] [address] * (ABNORMAL) BASIC METABOLIC PANEL (11/15/2024 8:40 AM EDT) Glucose 117(H) 65 - 99 mg/dL 11/15/2024 9:45 AM [facility] Comment:Fasting: <100 mg/dL, Non-Fasting: <200 mg/dL (ADA 2004) Blood Urea Nitrogen (BUN) 45(H) 8 - 21 mg/dL 11/15/2024 9:45 AM [facility] Creatinine 1.6(H) 0.4 - 1.1 mg/dL 11/15/2024 9:45 AM [facility] eGFR 38(L) >59 11/15/2024 9:45 AM [facility] Comment:CKD-EPI (2020) in mL /min/1.73 sq meters. Sodium 134(L) 136 - 145 mmol/L 11/15/2024 9:45 AM [facility] Potassium 3.8 3.4 - 5.3 mmol/L 11/15/2024 9:45 AM [facility] Chloride 96(L) 98 - 107 mmol/L 11/15/2024 9:45 AM [facility] CO2 26 22 - 33 mmol/L 11/15/2024 9:45 AM EDT [facility] Anion Gap 12 7 - 17 11/15/2024 9:45 AM EDT [facility] Calcium 9.9 8.7 - 10.5 mg/dL 11/15/2024 9:45 AM EDT [facility] BUN/Creatinine Ratio 28(H) 10.0 - 25.0 Ratio 11/15/2024 9:45 AM EDT [facility] Blood Blood specimen / Unknown 11/15/2024 8:40 AM EDT 11/15/2024 9:20 AM EDT Neil Padilla MD LAB BLOOD ORDERABLES Performing Organization Address [facility] Co de Phone Number [address] [address], [address] [address] * (ABNORMAL) POCT Glucose, Fingerstick (11/15/2024 8:29 AM EDT) POC Glucose 127(H) 65 - 99 mg/dL 11/15/2024 8:31 AM EDT Blood specimen / Unknown 11/15/2024 8:29 AM EDT 11/15/2024 8:30 AM EDT Satnam Silva MD POINT OF CARE TEST O RDERAGERONIMO Performing Organization Address City/[facility]/ZIP Co de Phone Number [facility] LAB See Below * (ABNORMAL) POCT Glucose, Fingerstick (11/14/2024 9:14 PM EDT) POC Glucose 177(H) 65 - 99 mg/dL 11/14/2024 9:15 PM EDT Blood specimen / Unknown 11/14/2024 9:14 PM EDT 11/14/2024 9:15 PM EDT Satnam Silva MD POINT OF CARE TEST O [facility]LES [facility] LAB See Below * (ABNORMAL) POCT Glucose, Fingerstick (11/14/2024 5:29 PM EDT) POC Glucose 124(H) 65 - 99 mg/dL 11/14/2024 5:33 PM EDT Blood specimen / Unknown 11/14/2024 5:29 PM EDT 11/14/2024 5:33 PM EDT Satnam Silva MD POINT OF CARE TEST O RDERABLES [facility] LAB See Below * (ABNORMAL) POCT Glucose, Fingerstick (11/14/2024 12:12 PM EDT) POC Glucose 139(H) 65 - 99 mg/dL 11/14/2024 12:17 PM EDT Blood specimen / Unknown 11/14/2024 12:12 PM EDT 11/14/2024 12:17 PM EDT Satnam Silva MD POINT OF CARE TEST O RDERAGERONIMO Performing Organization Address [facility] Co de Phone Number [facility] LAB See Below * (ABNORMAL) POCT Glucose, Fingerstick (11/14/2024 8:20 AM EDT) POC Glucose 128(H) 65 - 99 mg/dL 11/14/2024 8:21 AM EDT Blood specimen / Unknown 11/14/2024 8:20 AM EDT 11/14/2024 8:21 AM EDT Satnam Silva MD POINT OF CARE TEST O RDERAGERONIMO Performing Organization Address City/State/[facility] Co de Phone Number [facility] LAB See Below * Phosphorus (11/14/2024 6:50 AM EDT) Phosphorus 4.2 2.7 - 4.5 mg/dL 11/14/2024 8:35 AM EDT [facility] Blood Blood specimen / Unknown 11/14/2024 6:50 AM EDT 11/14/2024 7:16 AM EDT Neil Padilla MD LAB BLOOD ORDERABLES Performing Organization Address City/[facility]/[place] [address], [place] [address] * Magnesium (11/14/2024 6:50 AM EDT) Magnesium 2.1 1.6 - 2.7 mg/dL 11/14/2024 8:35 AM EDT [facility] Blood Blood specimen / Unknown 11/14/2024 6:50 AM EDT 11/14/2024 7:16 AM EDT Neil Padilla MD LAB BLOOD ORDERABLES Performing Organization Address [facility] [place] [address], [place] [address] * (ABNORMAL) COMPLETE BLOOD COUNT, WITHOUT DIFFERENTIAL (11/14/2024 6:50 AM EDT) White Blood Cell Count 6.2 4.0 - 11.0 Thou/uL 11/14/2024 7:27 AM [facility] Platelet Count 264 150 - 450 Thou/uL 11/14/2024 7:27 AM [facility] Hemoglobin 9.3(L) 11.7 - 15.7 g/dL 11/14/2024 7:27 AM [facility] Hematocrit 29.2(L) 35.0 - 47.0 % 11/14/2024 7:27 AM [facility] Red Blood Cell Count 3.61(L) 4.00 - 5.40 Mil/uL 11/14/2024 7:27 AM [facility] MCV 81 80 - 100 fL 11/14/2024 7:27 AM [facility] MCH 25.8(L) 27.0 - 31.0 pg 11/14/2024 7:27 AM [facility] MCHC 31.8 30.0 - 36.0 g/dL 11/14/2024 7:27 AM [facility] RDW 14.1 11.5 - 14.5 % 11/14/2024 7:27 AM [facility] MPV 9.5 7.5 - 12.5 fL 11/14/2024 7:27 AM [facility] Blood Blood specimen / Unknown 11/14/2024 6:50 AM EDT 11/14/2024 7:16 AM EDT Neil Padilla MD LAB BLOOD ORDERABLES [address] [address], [address] [address] * (ABNORMAL) Basic Metabolic Panel (11/14/2024 6:50 AM EDT) Glucose 112(H) 65 - 99 mg/dL 11/14/2024 8:35 AM [facility] Comment:Fasting: <100 mg/dL, Non-Fasting: <200 mg/dL (ADA 2005) Blood Urea Nitrogen (BUN) 46(H) 8 - 21 mg/dL 11/14/2024 8:35 AM [facility] Creatinine 1.6(H) 0.4 - 1.1 mg/dL 11/14/2024 8:35 AM [facility] eGFR 38(L) >59 11/14/2024 8:35 AM [facility] Comment:CKD-EPI (2020) in mL /min/1.73 sq meters. Sodium 136 136 - 145 mmol/L 11/14/2024 8:35 AM [facility] Potassium 3.6 3.4 - 5.3 mmol/L 11/14/2024 8:35 AM [facility] Chloride 98 98 - 107 mmol/L 11/14/2024 8:35 AM [facility] CO2 24 22 - 33 mmol/L 11/14/2024 8:35 AM [facility] Anion Gap 14 7 - 17 11/14/2024 8:35 AM [facility] Calcium 9.4 8.7 - 10.5 mg/dL 11/14/2024 8:35 AM [facility] BUN/Creatinine Ratio 29(H) 10.0 - 25.0 Ratio 11/14/2024 8:35 AM EDT [facility] Blood Blood specimen / Unknown 11/14/2024 6:50 AM EDT 11/14/2024 7:16 AM EDT Neil Padilla MD LAB BLOOD ORDERABLES [address] [address], [address] [address] * US Renal (11/13/2024 11:06 PM EDT) Anatomical Region Laterality Modality Abdomen Ultrasound 11/13/2024 10:4 5 PM EDT Impressions 11/15/2024 9:42 PM EDT No stones or hydronephrosis. Narrative 11/15/2024 9:42 PM EDT EXAMINATION: US RETROPERITONEUM LIMITED (RENAL ULTRASOUND) CLINICAL INFORMATION: Hypertension and flash edema COMPARISON: Ultrasound kidneys 06/18/2024 TECHNIQUE: Real-time imaging of the kidneys and bladder. FINDINGS: RIGHT KIDNEY: Normal. No hydronephrosis. No renal calculi or focal parenchymal lesions. The kidney measures 10.5 x 5.5 x 6.7 cm (sag x AP x TRV). LEFT KIDNEY: Normal. No hydronephrosis. No renal calculi or focal parenchymal lesions. The kidney measures 10.3 x 5.4 x 5.5 cm (sag x AP x TRV). BLADDER: Normal. Procedure Note Wilian Tavarez MD - 11/15/2024 EXAMINATION: US RETROPERITONEUM LIMITED (RENAL ULTRASOUND) CLINICAL INFORMATION: Hypertension and flash edema COMPARISON: Ultrasound kidneys 06/18/2024 TECHNIQUE: Real-time imaging of the kidneys and bladder. FINDINGS: RIGHT KIDNEY: Normal. No hydronephrosis. No renal calculi or focal parenchymal lesions. The kidney measures 10.5 x 5.5 x 6.7 cm (sag x AP x TRV). LEFT KIDNEY: Normal. No hydronephrosis. No renal calculi or focal parenchymal lesions. The kidney measures 10.3 x 5.4 x 5.5 cm (sag x AP x TRV). BLADDER: Normal. IMPRESSION: No stones or hydronephrosis. Heather Plascencia PA-C IMG US ORDERABLES * (ABNORMAL) POCT Glucose, Fingerstick (11/13/2024 8:45 PM EDT) POC Glucose 158(H) 65 - 99 mg/dL 11/13/2024 8:52 PM EDT Blood specimen / Unknown 11/13/2024 8:45 PM EDT 11/13/2024 8:50 PM EDT Satnam Silva MD POINT OF CARE TEST O RDERABLES [facility] LAB See Below * (ABNORMAL) POCT Glucose, Fingerstick (11/13/2024 4:14 PM EDT) POC Glucose 120(H) 65 - 99 mg/dL 11/13/2024 4:14 PM EDT Blood specimen / Unknown 11/13/2024 4:14 PM EDT 11/13/2024 4:15 PM EDT Satnam Silva MD POINT OF CARE TEST O RDERABLES [facility] LAB See Below * Phosphorus (11/13/2024 12:05 PM EDT) Phosphorus 3.7 2.7 - 4.5 mg/dL 11/13/2024 1:06 PM EDT [facility] Blood Blood specimen / Unknown 11/13/2024 12:05 PM EDT 11/13/2024 12:43 PM EDT Heather Plascencia PA-C LAB BLOOD ORDERABLES [address] [address], [address] [address] * Magnesium (11/13/2024 12:05 PM EDT) Magnesium 2.1 1.6 - 2.7 mg/dL 11/13/2024 1:06 PM [facility] Blood Blood specimen / Unknown 11/13/2024 12:05 PM EDT 11/13/2024 12:43 PM EDT Heather Plascencia PA-C LAB BLOOD ORDERABLES [address] [address], [address] [address] * (ABNORMAL) Basic Metabolic Panel (11/13/2024 12:05 PM EDT) Pathologist [facility] Glucose 136(H) 65 - 99 mg/dL 11/13/2024 1:06 PM [facility] Comment:Fasting: <100 mg/dL, Non-Fasting: <200 mg/dL (ADA 2004) Blood Urea Nitrogen (BUN) 41(H) 8 - 21 mg/dL 11/13/2024 1:06 PM [facility] Creatinine 1.5(H) 0.4 - 1.1 mg/dL 11/13/2024 1:06 PM [facility] eGFR 41(L) >59 11/13/2024 1:06 PM [facility] Comment:CKD-EPI (2020) in mL /min/1.73 sq meters. Sodium 137 136 - 145 mmol/L 11/13/2024 1:06 PM [facility] Potassium 4.0 3.4 - 5.3 mmol/L 11/13/2024 1:06 PM [facility] Chloride 102 98 - 107 mmol/L 11/13/2024 1:06 PM [facility] CO2 22 22 - 33 mmol/L 11/13/2024 1:06 PM [facility] Anion Gap 13 7 - 17 11/13/2024 1:06 PM [facility] Calcium 9.5 8.7 - 10.5 mg/dL 11/13/2024 1:06 PM [facility] BUN/Creatinine Ratio 27(H) 10.0 - 25.0 Ratio 11/13/2024 1:06 PM EDT [facility] Blood Blood specimen / Unknown 11/13/2024 12:05 PM EDT 11/13/2024 12:43 PM EDT Heather Plascencia PA-C LAB BLOOD ORDERABLES Performing Organization Address [facility] Co de Phone Number [address] [address], [address] [address] * (ABNORMAL) POCT Glucose, Fingerstick (11/13/2024 11:52 AM EDT) POC Glucose 142(H) 65 - 99 mg/dL 11/13/2024 11:57 AM EDT Blood specimen / Unknown 11/13/2024 11:52 AM EDT 11/13/2024 11:57 AM EDT Satnam Silva MD POINT OF CARE TEST O RDERABLES [facility]OSPITAL LAB See Below * ECG 12 lead (11/13/2024 8:07 AM EDT) Systolic BP 114 mmHg EKG [facility] Diastolic BP 51 mmHg EKG [facility] Ventricular rate 96 BPM EKG [facility] Atrial rate 96 BPM EKG [facility] P-R interval 150 ms EKG [facility] QRS duration 138 ms EKG [facility] Q-T interval 398 ms EKG [facility] QTC calculation (Bazett) 502 ms EKG [facility] P axis 31 degrees EKG [facility] R axis 43 degrees EKG [facility] T axis -11 degrees EKG [facility] 11/13/2024 8:07 AM EDT Narrative EKG [facility] - 11/13/2024 12:36 PM EDT Sinus rhythm with frequent Premature ventricular complexes Non-specific intra-ventricular conduction block Possible Inferior infarct , age undetermined Possible Anterolateral infarct (cited on or before 10-Nov-2024) Abnormal ECG When compared with ECG of 10-Nov-2024 13:32, Premature ventricular complexes are now Present Confirmed by MD Amador Mohamad ([id number]) on 11/13/2024 12:36:40 PM Procedure Note Bob Amador MD - 11/13/2024 Sinus rhythm with frequent Premature ventricular complexes Non-specific intra-ventricular conduction block Possible Inferior infarct , age undetermined Possible Anterolateral infarct (cited on or before 10-Nov-2024) Abnormal ECG When compared with ECG of 10-Nov-2024 13:32, Premature ventricular complexes are now Present Confirmed by MD Amador Mohamad ([id number]) on 11/13/2024 12:36:40 PM Heather Plascencia PA-C ECG ORDERABLES Performing Organization Address City/[facility]/ZIP Co de Phone Number EKG [facility] * (ABNORMAL) POCT Glucose, Fingerstick (11/13/2024 7:31 AM EDT) POC Glucose 131(H) 65 - 99 mg/dL 11/13/2024 7:33 AM EDT Blood specimen / Unknown 11/13/2024 7:31 AM EDT 11/13/2024 7:33 AM EDT Satnam Silva MD POINT OF CARE TEST O RDERABLES Performing Organization Address [facility] Co de Phone Number HOSPITAL LAB See Below * (ABNORMAL) POCT Glucose, Fingerstick (11/12/2024 11:51 PM EDT) POC Glucose 114(H) 65 - 99 mg/dL 11/13/2024 3:29 AM EDT Blood specimen / Unknown 11/12/2024 11:51 PM EDT 11/13/2024 3:29 AM EDT Satnam Silva MD POINT OF CARE TEST O RDERABLES [facility]OSPITAL LAB See Below * Heparin Assay (Anti Xa) (11/12/2024 11:50 PM EDT) [facility] Signature Anti Xa 0.45 IU/mL 11/13/2024 12:18 AM T [facility] Comment: (NOTE) Heparin Thromboembolic/Standard/Full Dose Protocol: Therapeutic Range: ? Age 18+: ? 0.30 - 0.70 IU/mL ? Age 0 - 17: ?? 0.35 - 0.70 IU/mL ? Heparin Cardiac/Low Dose Protocol: ? Therapeutic Range: ? 0.30 - 0.50 IU/mL ? Low Molecular Weight Heparin: ? Therapeutic Range: ? Age 18+: ?? 0.50 - 1.09 IU/mL for twice daily dosing (or adjusted to daily for poor renal function) ? Age 18+: ?? 1.00 - 2.00 ??IU/mL for once daily dosing ? Age 0-17: ??0.50 - 1.00 IU/mL Anticoagulant IV HEPARIN, UNFRACTIONATED 11/12/2024 11:47 PM EDT Blood Blood specimen / Unknown 11/12/2024 11:50 PM EDT 11/13/2024 12:01 AM EDT Cesilia Ames MD LAB BLOOD ORDERABLES Performing Organization Address [facility] [place] [address], [place] [address] * (ABNORMAL) Hemoglobin A1c with Estimated Average Glucose (Routine) (11/12/2024 11:50 PM EDT) Hemoglobin A1C 6.0(H) <5.7 % 11/13/2024 1:49 AM EDT [facility] Comment: A1c% ? Interpretation 5.7 - 6.0 ?Increase risk of diabetes 6.1 - 6.4 ?Higher risk of diabetes > or = 6.5 ?? Consistent with diabetes Diabetes Care, 33(Supp 1):S1-S61, 2010 Estimated Average Glucose 126 mg/dL 11/13/2024 1:49 AM EDT [facility] Blood Blood specimen / Unknown 11/12/2024 11:50 PM EDT 11/13/2024 12:01 AM EDT Elinor FONTANA LAB BLOOD ORDERABL ES Performing Organization Address [facility] [place] [address], [address] [address] * PHOSPHORUS (11/12/2024 11:50 PM EDT) Phosphorus 3.3 2.7 - 4.5 mg/dL 11/13/2024 12:31 AM EDT [facility] Blood Blood specimen / Unknown 11/12/2024 11:50 PM EDT 11/13/2024 12:01 AM EDT Elinor FONTANA LAB BLOOD ORDERABL ES Performing Organization Address City/[facility]/[place] [address], [address] [address] * MAGNESIUM (11/12/2024 11:50 PM EDT) Magnesium 1.9 1.6 - 2.7 mg/dL 11/13/2024 12:31 AM EDT [facility] Blood Blood specimen / Unknown 11/12/2024 11:50 PM EDT 11/13/2024 12:01 AM EDT Elinor FONTANA LAB BLOOD ORDERABL ES Performing Organization Address City/[facility] [place] [address], [address] [address] * (ABNORMAL) COMPLETE BLOOD COUNT, WITHOUT DIFFERENTIAL (11/12/2024 11:50 PM EDT) White Blood Cell Count 8.0 4.0 - 11.0 Thou/uL 11/13/2024 12:06 AM [facility] Platelet Count 233 150 - 450 Thou/uL 11/13/2024 12:06 AM [facility] Hemoglobin 9.3(L) 11.7 - 15.7 g/dL 11/13/2024 12:06 AM [facility] Hematocrit 29.4(L) 35.0 - 47.0 % 11/13/2024 12:06 AM [facility] Red Blood Cell Count 3.55(L) 4.00 - 5.40 Mil/uL 11/13/2024 12:06 AM T [facility] MCV 83 80 - 100 fL 11/13/2024 12:06 AM [facility] MCH 26.2(L) 27.0 - 31.0 pg 11/13/2024 12:06 AM T [facility] MCHC 31.6 30.0 - 36.0 g/dL 11/13/2024 12:06 AM [facility] RDW 14.6(H) 11.5 - 14.5 % 11/13/2024 12:06 AM [facility] MPV 9.6 7.5 - 12.5 fL 11/13/2024 12:06 AM [facility] nRBC 0.3(H) 0.0 - 0.1 /100 WBC 11/13/2024 12:06 AM [facility] nRBC, Absolute 0.02 0.00 - 0.02 Thou/uL 11/13/2024 12:06 AM [facility] Blood Blood specimen / Unknown 11/12/2024 11:50 PM EDT 11/13/2024 12:01 AM EDT Elinor FONTANA LAB BLOOD ORDERABL ES [address] [address], [address] [address] * (ABNORMAL) BASIC METABOLIC PANEL (11/12/2024 11:50 PM EDT) Glucose 116(H) 65 - 99 mg/dL 11/13/2024 12:31 AM [facility] Comment:Fasting: <100 mg/dL, Non-Fasting: <200 mg/dL (ADA 2004) Blood Urea Nitrogen (BUN) 38(H) 8 - 21 mg/dL 11/13/2024 12:31 AM [facility] Creatinine 1.5(H) 0.4 - 1.1 mg/dL 11/13/2024 12:31 AM [facility] eGFR 41(L) >59 11/13/2024 12:31 AM [facility] Comment:CKD-EPI (2020) in mL /min/1.73 sq meters. Sodium 138 136 - 145 mmol/L 11/13/2024 12:31 AM [facility] Potassium 4.0 3.4 - 5.3 mmol/L 11/13/2024 12:31 AM [facility] Chloride 104 98 - 107 mmol/L 11/13/2024 12:31 AM [facility] CO2 23 22 - 33 mmol/L 11/13/2024 12:31 AM EDT [facility] Anion Gap 11 7 - 17 11/13/2024 12:31 AM EDT [facility] Calcium 9.3 8.7 - 10.5 mg/dL 11/13/2024 12:31 AM EDT [facility] BUN/Creatinine Ratio 25 10.0 - 25.0 Ratio 11/13/2024 12:31 AM EDT [facility] Blood Blood specimen / Unknown 11/12/2024 11:50 PM EDT 11/13/2024 12:01 AM EDT Elinor FONTANA LAB BLOOD ORDERABL ES Performing Organization Address [facility] [place] [address], [place] [address] * (ABNORMAL) POCT Glucose, Fingerstick (11/12/2024 8:08 PM EDT) POC Glucose 129(H) 65 - 99 mg/dL 11/12/2024 8:13 PM EDT Blood specimen / Unknown 11/12/2024 8:08 PM EDT 11/12/2024 8:13 PM EDT Satnam Silva MD POINT OF CARE TEST O RDERAGERONIMO Performing Organization Address City/[facility]/ZIP Co de Phone Number HOSPITAL LAB See Below * (ABNORMAL) POCT Glucose, Fingerstick (11/12/2024 3:12 PM EDT) POC Glucose 162(H) 65 - 99 mg/dL 11/12/2024 3:17 PM EDT Blood specimen / Unknown 11/12/2024 3:12 PM EDT 11/12/2024 3:17 PM EDT Satnam Silva MD POINT OF CARE TEST O RDERABLES HOSPITAL LAB See Below * PHOSPHORUS (11/12/2024 1:12 PM EDT) Pathologist [facility] Phosphorus 3.0 2.7 - 4.5 mg/dL 11/12/2024 2:06 PM EDT [facility] Blood Blood specimen / Unknown 11/12/2024 1:12 PM EDT 11/12/2024 1:30 PM EDT Elinor FONTANA [place] [address], [place] [address] * MAGNESIUM (11/12/2024 1:12 PM EDT) Pathologist [facility] Magnesium 2.0 1.6 - 2.7 mg/dL 11/12/2024 2:06 PM EDT [facility] Blood Blood specimen / Unknown 11/12/2024 1:12 PM EDT 11/12/2024 1:30 PM EDT Elinor FONTANA LAB BLOOD ORDERABL ES Performing Organization Address City/[facility]/[place] [address], [place] [address] * (ABNORMAL) BASIC METABOLIC PANEL (11/12/2024 1:12 PM EDT) Pathologist [facility] Glucose 157(H) 65 - 99 mg/dL 11/12/2024 2:06 PM EDT [facility] Comment:Fasting: <100 mg/dL, Non-Fasting: <200 mg/dL (ADA 2004) Blood Urea Nitrogen (BUN) 36(H) 8 - 21 mg/dL 11/12/2024 2:06 PM EDT [facility] Creatinine 1.4(H) 0.4 - 1.1 mg/dL 11/12/2024 2:06 PM EDT [facility] eGFR 45(L) >59 11/12/2024 2:06 PM EDT [facility] Comment:CKD-EPI (2020) in mL /min/1.73 sq meters. Sodium 142 136 - 145 mmol/L 11/12/2024 2:06 PM EDT [facility] Potassium 4.3 3.4 - 5.3 mmol/L 11/12/2024 2:06 PM EDT [facility] Chloride 108(H) 98 - 107 mmol/L 11/12/2024 2:06 PM EDT [facility] CO2 21(L) 22 - 33 mmol/L 11/12/2024 2:06 PM EDT [facility] Anion Gap 13 7 - 17 11/12/2024 2:06 PM EDT [facility] Calcium 9.3 8.7 - 10.5 mg/dL 11/12/2024 2:06 PM EDT [facility] BUN/Creatinine Ratio 26(H) 10.0 - 25.0 Ratio 11/12/2024 2:06 PM EDT [facility] Blood Blood specimen / Unknown 11/12/2024 1:12 PM EDT 11/12/2024 1:30 PM EDT Elinor FONTANA [place] [address], [place] [address] * (ABNORMAL) POCT Glucose, Fingerstick (11/12/2024 11:37 AM EDT) POC Glucose 145(H) 65 - 99 mg/dL 11/12/2024 11:42 AM EDT Blood specimen / Unknown 11/12/2024 11:37 AM EDT 11/12/2024 11:42 AM EDT Satnam Silva MD POINT OF CARE TEST O RDERABLES HOSPITAL LAB See Below * (ABNORMAL) Blood Gas with Cooximetry, Arterial (11/12/2024 10:15 AM EDT) Respiratory Info VENT 40% 11/13/19 10:16 AM EDT pH, Arterial 7.35 7.35 - 7.45 11/12/2024 10:37 AM T [facility] pCO2, Arterial 42 32 - 45 mmHG 11/12/2024 10:37 AM [facility] pO2, Arterial 78 75 - 95 mmHG 11/12/2024 10:37 AM [facility] CO2, Total 24 22 - 28 mmol/L 11/12/2024 10:37 AM [facility] P/F Ratio 195 11/12/2024 10:37 AM [facility] Comment:P/F < 300 or < 200: question ALI or ARDS. Base Deficiency 2.5 mmol/L 10:37 AM [facility] Comment:Reference Range: Neg ative 2 to Positive 3 Hemogloblin, Total 6.1(L) 11.7 - 15.7 g/dL 11/12/2024 10:37 AM [facility] O2 Saturation, Arterial 96.2 94 - 97 % 11/12/2024 10:37 AM [facility] Carboxyhemoglobin 1.5 0.0 - 2.0 % 11/12/2024 10:37 AM [facility] Methemoglobin 0.5 0.4 - 1.5 % 11/12/2024 10:37 AM [facility] O2 Content, Arterial 5.8(L) 15.7 - 21.6 mL/dL 11/12/2024 10:37 AM [facility] Blood Blood specimen / Unknown 11/12/2024 10:15 AM EDT 11/12/2024 10:29 AM EDT Elinor FONTANA LAB BLOOD ORDERABL ES [address] [address], [address] [address] * (ABNORMAL) POCT Glucose, Fingerstick (11/12/2024 7:42 AM EDT) POC Glucose 188(H) 65 - 99 mg/dL 11/12/2024 7:46 AM EDT Blood specimen / Unknown 11/12/2024 7:42 AM EDT 11/12/2024 7:46 AM EDT Satnam Silva MD POINT OF CARE TEST O RDERABLES HOSPITAL LAB See Below * Heparin Assay (Anti Xa) (11/12/2024 6:47 AM EDT) Anti Xa 0.38 IU/mL 11/12/2024 7:22 AM EDT [facility] Comment: (NOTE) Heparin Thromboembolic/Standard/Full Dose Protocol: Therapeutic Range: ? Age 18+: ? 0.30 - 0.70 IU/mL ? Age 0 - 17: ?? 0.35 - 0.70 IU/mL ? Heparin Cardiac/Low Dose Protocol: ? Therapeutic Range: ? 0.30 - 0.50 IU/mL ? Low Molecular Weight Heparin: ? Therapeutic Range: ? Age 18+: ?? 0.50 - 1.09 IU/mL for twice daily dosing (or adjusted to daily for poor renal function) ? Age 18+: ?? 1.00 - 2.00 ??IU/mL for once daily dosing ? Age 0-17: ??0.50 - 1.00 IU/mL Anticoagulant IV HEPARIN, UNFRACTIONATED 11/12/2024 6:47 AM EDT Blood Blood specimen / Unknown 11/12/2024 6:47 AM EDT 11/12/2024 6:58 AM EDT Cesilia Ames MD LAB BLOOD ORDERABLES Performing Organization Address [facility] [place] [address], [place] [address] * (ABNORMAL) POCT Glucose, Fingerstick (11/12/2024 3:39 AM EDT) POC Glucose 168(H) 65 - 99 mg/dL 11/12/2024 3:39 AM EDT Blood specimen / Unknown 11/12/2024 3:39 AM EDT 11/12/2024 3:40 AM EDT Satnam Silva MD POINT OF CARE TEST O RDERABLES Performing Organization Address [facility]/ZIP Co de Phone Number HOSPITAL LAB See Below * Heparin Assay (Anti Xa) (11/12/2024 1:19 AM EDT) Anti Xa 0.42 IU/mL 11/12/2024 1:39 AM EDT [facility] Comment: (NOTE) Heparin Thromboembolic/Standard/Full Dose Protocol: Therapeutic Range: ? Age 18+: ? 0.30 - 0.70 IU/mL ? Age 0 - 17: ?? 0.35 - 0.70 IU/mL ? Heparin Cardiac/Low Dose Protocol: ? Therapeutic Range: ? 0.30 - 0.50 IU/mL ? Low Molecular Weight Heparin: ? Therapeutic Range: ? Age 18+: ?? 0.50 - 1.09 IU/mL for twice daily dosing (or adjusted to daily for poor renal function) ? Age 18+: ?? 1.00 - 2.00 ??IU/mL for once daily dosing ? Age 0-17: ??0.50 - 1.00 IU/mL Anticoagulant IV HEPARIN, UNFRACTIONATED 11/12/2024 1:19 AM EDT Blood Blood specimen / Unknown 11/12/2024 1:19 AM EDT 11/12/2024 1:25 AM EDT Cesilia Ames MD LAB BLOOD ORDERABLES Performing Organization Address City/[facility]/[place] [address], [address] [address] * PHOSPHORUS (11/11/2024 11:43 PM EDT) Phosphorus 3.1 2.7 - 4.5 mg/dL 11/12/2024 12:53 AM EDT [facility] Blood Blood specimen / Unknown 11/11/2024 11:43 PM EDT 11/12/2024 12:14 AM EDT Elinor FONTANA LAB BLOOD ORDERABL ES Performing Organization Address City/[facility] [place] [address], [address] [address] * MAGNESIUM (11/11/2024 11:43 PM EDT) Magnesium 2.0 1.6 - 2.7 mg/dL 11/12/2024 12:53 AM EDT [facility] Blood Blood specimen / Unknown 11/11/2024 11:43 PM EDT 11/12/2024 12:14 AM EDT Elinor FONTANA LAB BLOOD ORDERABL ES Performing Organization Address City/[facility]/[place] [address], [address] [address] * (ABNORMAL) COMPLETE BLOOD COUNT, WITHOUT DIFFERENTIAL (11/11/2024 11:43 PM EDT) White Blood Cell Count 7.1 4.0 - 11.0 Thou/uL 11/12/2024 12:34 AM EDT [facility] Platelet Count 215 150 - 450 Thou/uL 11/12/2024 12:34 AM EDT [facility] Hemoglobin 9.1(L) 11.7 - 15.7 g/dL 11/12/2024 12:[address] [facility] Hematocrit 29.7(L) 35.0 - 47.0 % 11/12/2024 12:34 AM [facility] Red Blood Cell Count 3.53(L) 4.00 - 5.40 Mil/uL 11/12/2024 12:34 AM [facility] MCV 84 80 - 100 fL 11/12/2024 12:34 AM [facility] MCH 25.8(L) 27.0 - 31.0 pg 11/12/2024 12:34 AM [facility] MCHC 30.6 30.0 - 36.0 g/dL 11/12/2024 12:34 AM [facility] RDW 14.9(H) 11.5 - 14.5 % 11/12/2024 12:34 AM [facility] MPV 10.0 7.5 - 12.5 fL 11/12/2024 12:34 AM [facility] Blood Blood specimen / Unknown 11/11/2024 11:43 PM EDT 11/12/2024 12:14 AM EDT Elinor FON[place]NA [place] [address], [place] [address] * (ABNORMAL) BASIC METABOLIC PANEL (11/11/2024 11:43 PM EDT) Glucose 144(H) 65 - 99 mg/dL 11/12/2024 12:53 AM [facility] Comment:Fasting: <100 mg/dL, Non-Fasting: <200 mg/dL (ADA 2005) Blood Urea Nitrogen (BUN) 35(H) 8 - 21 mg/dL 11/12/2024 12:53 AM [facility] Creatinine 1.5(H) 0.4 - 1.1 mg/dL 11/12/2024 12:53 AM [facility] eGFR 41(L) >59 11/12/2024 12:53 AM [facility] Comment:CKD-EPI (2020) in mL /min/1.73 sq meters. Sodium 140 136 - 145 mmol/L 11/12/2024 12:53 AM [facility] Potassium 3.9 3.4 - 5.3 mmol/L 11/12/2024 12:53 AM [facility] Chloride 109(H) 98 - 107 mmol/L 11/12/2024 12:53 AM [facility] CO2 22 22 - 33 mmol/L 11/12/2024 12:53 AM [facility] Anion Gap 9 7 - 17 11/12/2024 12:53 AM [facility] Calcium 9.2 8.7 - 10.5 mg/dL 11/12/2024 12:53 AM [facility] BUN/Creatinine Ratio 23 10.0 - 25.0 Ratio 11/12/2024 12:53 AM [facility] Blood Blood specimen / Unknown 11/11/2024 11:43 PM EDT 11/12/2024 12:14 AM EDT Elinor FON[place]NA [place] [address], [place] [address] * (ABNORMAL) POCT Glucose, Fingerstick (11/11/2024 11:29 PM EDT) POC Glucose 145(H) 65 - 99 mg/dL 11/11/2024 11:48 PM EDT Blood specimen / Unknown 11/11/2024 11:29 PM EDT 11/11/2024 11:48 PM EDT Satnam Silva MD [facility] See Below * (ABNORMAL) POCT Glucose, Fingerstick (11/11/2024 7:59 PM EDT) POC Glucose 172(H) 65 - 99 mg/dL 11/11/2024 8:04 PM EDT Blood specimen / Unknown 11/11/2024 7:59 PM EDT 11/11/2024 8:04 PM EDT Satnam Silva MD [facility] See Below * Heparin Assay (Anti Xa) (11/11/2024 6:49 PM EDT) Anti Xa 0.25 IU/mL 11/11/2024 7:25 PM EDT [facility] Comment: (NOTE) Heparin Thromboembolic/Standard/Full Dose Protocol: Therapeutic Range: ? Age 18+: ? 0.30 - 0.70 IU/mL ? Age 0 - 17: ?? 0.35 - 0.70 IU/mL ? Heparin Cardiac/Low Dose Protocol: ? Therapeutic Range: ? 0.30 - 0.50 IU/mL ? Low Molecular Weight Heparin: ? Therapeutic Range: ? Age 18+: ?? 0.50 - 1.09 IU/mL for twice daily dosing (or adjusted to daily for poor renal function) ? Age 18+: ?? 1.00 - 2.00 ??IU/mL for once daily dosing ? Age 0-17: ??0.50 - 1.00 IU/mL Anticoagulant IV HEPARIN, UNFRACTIONATED 11/11/2024 6:49 PM EDT Blood Blood specimen / Unknown 11/11/2024 6:49 PM EDT 11/11/2024 7:11 PM EDT Cesilia Ames MD LAB BLOOD ORDERABLES Performing Organization Address City/[facility]/[place] [address], [place] [address] * (ABNORMAL) POCT Glucose, Fingerstick (11/11/2024 3:55 PM EDT) [facility] POC Glucose 149(H) 65 - 99 mg/dL 11/11/2024 4:12 PM EDT Blood specimen / Unknown 11/11/2024 3:55 PM EDT 11/11/2024 4:12 PM EDT Satnam Silva MD [facility] See Below * (ABNORMAL) Partial Thromboplastin Time (PTT) (11/11/2024 12:43 PM EDT) Pathologist [facility] Anticoagulant IV HEPARIN, UNFRACTIONATED 11/11/2024 12:43 PM EDT Partial Thromboplastin Time (PTT) 37(H) 25 - 36 seconds 11/11/2024 1:28 PM EDT [facility] Blood Blood specimen / Unknown 11/11/2024 12:43 PM EDT 11/11/2024 1:02 PM EDT Elinor FONTANA LAB BLOOD ORDERABL ES Performing Organization Address [facility] Co de Phone Number [address] [address], [address] [address] * (ABNORMAL) Protime-INR (11/11/2024 12:43 PM EDT) [facility] Anticoagulant IV HEPARIN, UNFRACTIONATED 11/11/2024 12:43 PM EDT Prothrombin Time (PT) 14.1(H) 10.0 - 13.5 seconds 11/11/2024 1:28 PM EDT [facility] INR 1.3 11/11/2024 1:28 PM EDT [facility] Comment:INR Therapeutic Rang es: Standard dose anticoagulant 2.0 to 3.0, High dose anticoagulant 2.5-3.5. Blood Blood specimen / Unknown 11/11/2024 12:43 PM EDT 11/11/2024 1:02 PM EDT Elinor FONTANA LAB BLOOD ORDERABL ES [address] [address], [address] [address] * (ABNORMAL) Complete Blood Count, with Differential (11/11/2024 12:43 PM EDT) [facility] White Blood Cell Count 6.3 4.0 - 11.0 Thou/uL 11/11/2024 1:12 PM EDT [facility] Platelet Count 202 150 - 450 Thou/uL 11/11/2024 1:12 PM EDT [facility] Hemoglobin 8.5(L) 11.7 - 15.7 g/dL 11/11/2024 1:12 PM EDT [facility] Hematocrit 28.1(L) 35.0 - 47.0 % 11/11/2024 [facility] Blood Cell Count 3.33(L) 4.00 - 5.40 Mil/uL 11/11/2024 1:12 PM [facility] MCV 84 80 - 100 fL 11/11/2024 1:12 PM [facility] MCH 25.5(L) 27.0 - 31.0 pg 11/11/2024 1:12 PM [facility] MCHC 30.2 30.0 - 36.0 g/dL 11/11/2024 1:12 PM [facility] RDW 14.8(H) 11.5 - 14.5 % 11/11/2024 1:12 PM [facility] MPV 10.0 7.5 - 12.5 fL 11/11/2024 1:12 PM [facility] Neutrophils Auto 69.4 % 11/12/19 1:12 PM [facility] Immature Granulocytes 0.5 % 11/11/2024 1:12 PM [facility] Lymphocytes Auto 17.9 % 11/12/19 1:12 PM [facility] Monocytes Auto 11.7 % 11/11/2024 1:12 PM [facility] Eosinophils Auto 0.3 % 11/12/19 1:12 PM [facility] Basophils Auto 0.2 % 11/11/2024 1:12 PM [facility] Abs Neutrophils Auto 4.34 2.00 - 7.50 Thou/uL 11/11/2024 1:12 PM [facility] Abs Immature Granulocytes 0.03 0.00 - 0.10 Thou/uL 11/11/2024 1:12 PM [facility] Abs Lymphocytes Auto 1.12(L) 1.50 - 4.50 Thou/uL 11/11/2024 1:12 PM [facility] Abs Monocytes Auto 0.73 0.20 - 1.50 Thou/uL 11/11/2024 1:12 PM [facility] Abs Eosinophils Auto 0.02 0.00 - 0.70 Thou/uL 11/11/2024 1:12 PM [facility] Abs Basophils Auto 0.01 0.00 - 0.20 Thou/uL 11/11/2024 1:12 PM [facility] Blood Blood specimen / Unknown 11/11/2024 12:43 PM EDT 11/11/2024 1:02 PM EDT Elinor FONTANA LAB BLOOD ORDERABL ES Performing Organization Address City/[facility] Co de Phone Number [address] [address], [address] [address] * (ABNORMAL) Hemoglobin and Hematocrit (11/11/2024 11:24 AM EDT) Hematocrit 28.6(L) 35.0 - 47.0 % 11/11/2024 1:13 PM EDT [facility] Hemoglobin 8.8(L) 11.7 - 15.7 g/dL 11/11/2024 1:13 PM EDT [facility] Blood Blood specimen / Unknown 11/11/2024 11:24 AM EDT 11/11/2024 1:05 PM EDT Elinor FONTANA LAB BLOOD ORDERABL ES Performing Organization Address [facility] Co de Phone Number [address] [address], [address] [address] * HIV 1/2 Ag/Ab CMIA Reflex to Confirmation (11/11/2024 11:24 AM EDT) HIV 1/2 Ag/Ab CMIA Nonreactive Nonreactive 11/12/2024 10:22 AM EDT [facility] Comment: Results show no evidence of infection by HIV 1/2. If clinically indicated, repeat CMIA or test by nucleic acid amplification. HIV 1/2 Antigen/Antibody CMIA reflex to confirmation AND HIV-1 RNA viral load recommended in patients who are taking or have recently taken PrEP. Blood Blood specimen / Unknown 11/11/2024 11:24 AM EDT 11/11/2024 1:05 PM EDT Elinor FONTANA LAB BLOOD ORDERABL ES [facility] [address] [place] [address], * (ABNORMAL) Transferrin (11/11/2024 11:24 AM EDT) Transferrin 189(L) 200 - 360 mg/dL 11/11/2024 1:42 PM EDT [facility] Blood Blood specimen / Unknown 11/11/2024 11:24 AM EDT 11/11/2024 1:05 PM EDT Elinor FONTANA LAB BLOOD ORDERABL ES Performing Organization Address City/[facility]/[place] [address], [place] [address] * Ferritin (11/11/2024 11:24 AM EDT) Ferritin 114 30 - 400 ug/L 11/11/2024 1:42 PM EDT [facility] Blood Blood specimen / Unknown 11/11/2024 11:24 AM EDT 11/11/2024 1:05 PM EDT Elinor FONTANA LAB BLOOD ORDERABL ES Performing Organization Address City/[facility]/[place] [address], [address] [address] * (ABNORMAL) Iron and Total Iron Binding Capacity (11/11/2024 11:24 AM EDT) Iron 16(L) 59 - 151 ug/dL 11/11/2024 1:42 PM EDT [facility] UIBC 209 112 - 346 ug/dL 11/11/2024 1:42 PM EDT [facility] Total Iron Binding Capacity 225 100 - 400 ug/dL 11/11/2024 1:42 PM EDT [facility] Iron Sat 7(L) 20 - 50 % 11/11/2024 1:42 PM EDT [facility] Blood Blood specimen / Unknown 11/11/2024 11:24 AM EDT 11/11/2024 1:05 PM EDT Elinor Rene Gerry FONTANA LAB BLOOD ORDERABL ES Performing Organization Address [facility] Co de Phone Number [address] [address], [address] [address] * PHOSPHORUS (11/11/2024 11:24 AM EDT) Phosphorus 3.5 2.7 - 4.5 mg/dL 11/11/2024 1:42 PM EDT [facility] Blood Blood specimen / Unknown 11/11/2024 11:24 AM EDT 11/11/2024 1:05 PM EDT Elinor FONTANA LAB BLOOD ORDERABL ES Performing Organization Address [facility] [place] [address], [address] [address] * MAGNESIUM (11/11/2024 11:24 AM EDT) Magnesium 2.0 1.6 - 2.7 mg/dL 11/11/2024 1:42 PM EDT [facility] Blood Blood specimen / Unknown 11/11/2024 11:24 AM EDT 11/11/2024 1:05 PM EDT Elinor FONTANA LAB BLOOD ORDERABL ES Performing Organization Address City/[facility] Co de Phone Number [address] [address], [address] [address] * (ABNORMAL) BASIC METABOLIC PANEL (11/11/2024 11:24 AM EDT) Glucose 159(H) 65 - 99 mg/dL 11/11/2024 1:42 PM EDT [facility] Comment:Fasting: <100 mg/dL, Non-Fasting: <200 mg/dL (ADA 2004) Blood Urea Nitrogen (BUN) 33(H) 8 - 21 mg/dL 11/11/2024 1:42 PM EDT [facility] Creatinine 1.6(H) 0.4 - 1.1 mg/dL 11/11/2024 1:42 PM EDT [facility] eGFR 38(L) >59 11/11/2024 1:42 PM EDT [facility] Comment:CKD-EPI (2020) in mL /min/1.73 sq meters. Sodium 140 136 - 145 mmol/L 11/11/2024 1:42 PM EDT [facility] Potassium 3.4 3.4 - 5.3 mmol/L 11/11/2024 1:42 PM EDT [facility] Chloride 108(H) 98 - 107 mmol/L 11/11/2024 1:42 PM EDT [facility] CO2 22 22 - 33 mmol/L 11/11/2024 1:42 PM EDT [facility] Anion Gap 10 7 - 17 11/11/2024 1:42 PM EDT [facility] Calcium 8.9 8.7 - 10.5 mg/dL 11/11/2024 1:42 PM EDT [facility] BUN/Creatinine Ratio 21 10.0 - 25.0 Ratio 11/11/2024 1:42 PM EDT [facility] Blood Blood specimen / Unknown 11/11/2024 11:24 AM EDT 11/11/2024 1:05 PM EDT Elinor FONTANA [place] [address], [place] [address] * VAS VENOUS DUPLEX LEG (DVT)-BILATERAL (11/11/2024 11:21 AM EDT) Anatomical Region Laterality Modality Ultrasound 11/11/2024 9:55 AM EDT Narrative 11/11/2024 12:51 PM EDT Table formatting from the original result was not included. ?? Department: [facility] Patient: [id number] (MARLI HANNA) ?? Patient Location: ..[place] [address].[facility] CPT Code: 45930 ICD-9: ?? Referring Physician: EDEL Erazo Critical Findings: The report was given to ADDI Flores by Tegan El RVT at 11:41 am on 11/11/2024. ?? Result: partial acute thrombus of right CFV Read Back Performed: Yes Right lower extremity venous duplex ultrasound exam demonstrates acute thrombus involving the common femoral vein. Diagnosis of acute thrombosis is supported by a low level of echogenicity of the thrombus in the distended vein. The remainder of the deep system is patent. Left lower extremity venous duplex ultrasound exam demonstrates normal Doppler flow with no thrombus seen in dan scale. Findings are not consistent with the presence of deep vein thrombosis. ?? Indications ? Bilateral Swelling of Limb [M79.89]. 54 year old female presents with bilateral leg swelling. ?? Findings: ?? Right ??Impression ??Phasic ??Compressible Common Femoral Vein ??Acute Partial Thrombus ??Yes ??Partial Proximal femoral vein ??Normal ?Complete Mid femoral vein ??Normal ?Complete Distal femoral vein ??Normal ?Complete Popliteal ??Normal ?Complete Posterior Tibial Vein ??Normal ?Complete Peroneal ??Normal ?Complete GSV Saphenofemoral junction ??Normal ?Complete Left ??Impression ??Phasic ??Compressible Common Femoral Vein ??Normal ??Yes ??Complete Proximal femoral vein ??Normal ?Complete Mid femoral vein ??Normal ?Complete Distal femoral vein ??Normal ?Complete Popliteal ??Normal ?Complete Posterior Tibial Vein ??Normal ?Complete Peroneal ??Normal ?Complete GSV Saphenofemoral junction ??Normal ?Complete ?? Electronically Signed by: Mihai Vicente MD, MPH, RPVI on 2024-11-11 12:51:41 PM End of Report Procedure Note Mihai Vicente MD - 11/11/2024 Department: [facility] Patient: [id number] (MARLI HANNA) Patient Location: ..[place] [address].[facility] CPT Code: 93409 ICD-9: Referring Physician: EDEL Erazo Critical Findings: The report was given to ADDI Flores by Tegan El RVT at 11:41am on 11/11/2024. Result: partial acute thrombus of right CFV Read Back Performed: Yes Right lower extremity venous duplex ultrasound exam demonstrates acutethrombus involving the common femoral vein. Diagnosis of acute thrombosisis supported by a low level of echogenicity of the thrombus in thedistended vein. The remainder of the deep system is patent. Left lower extremity venous duplex ultrasound exam demonstrates normalDoppler flow with no thrombus seen in dan scale. Findings are notconsistent with the presence of deep vein thrombosis. Indications Bilateral Swelling of Limb [M79.89]. 54 year old female presents with bilateral leg swelling. Findings: Right Impression Phasic Compressible Common Femoral Vein Acute Partial Thrombus Yes Partial Proximal femoral vein Normal Complete Mid femoral vein Normal Complete Distal femoral vein Normal Complete Popliteal Normal Complete Posterior Tibial Vein Normal Complete Peroneal Normal Complete GSV Saphenofemoral junction Normal Complete Left Impression Phasic Compressible Common Femoral Vein Normal Yes Complete Proximal femoral vein Normal Complete Mid femoral vein Normal Complete Distal femoral vein Normal Complete Popliteal Normal Complete Posterior Tibial Vein Normal Complete Peroneal Normal Complete GSV Saphenofemoral junction Normal Complete Electronically Signed by: Mihai Vicente MD, MPH, RPVI on :51:41 PM End of Report Edel Sheth PA-C VASCULAR LAB ORDERAB LES * (ABNORMAL) POCT Glucose, Fingerstick (11/11/2024 11:07 AM EDT) POC Glucose 181(H) 65 - 99 mg/dL 11/11/2024 11:25 AM EDT Blood specimen / Unknown 11/11/2024 11:07 AM EDT 11/11/2024 11:25 AM EDT Satnam Silva MD [facility] See Below * XR Chest 1 view-Portable (STAT) (11/11/2024 7:32 AM EDT) Anatomical Region Laterality Modality Chest Computed Radiogr aphy 11/11/2024 5:18 AM EDT Impressions 11/11/2024 7:55 AM EDT 1. ??Unchanged moderate cardiomegaly and pulmonary venous congestion. 2. ??Unchanged hypoinflated lungs with Extensive alveolar infiltrates compatible with pulmonary edema due to congestive heart failure or bronchopneumonia. 3. ??Interval advancement of endotracheal tube close to sarah. 4. ??No interval change in position of coiled up enteric tube. Narrative 11/11/2024 7:55 AM EDT EXAMINATION: XR CHEST CLINICAL INFORMATION: Readjusted ET tube COMPARISON: Chest x-ray on 11/10/2024 at 1501 hours TECHNIQUE: Frontal view of the chest was obtained on 11/11/2024 at 0527 hours. FINDINGS: HEART & VASCULARITY: There are moderate cardiomegaly and increased pulmonary vascularity. ?? LUNGS: Lungs are hypoinflated. Extensive alveolar infiltrates are seen in bilateral lungs. No pneumothorax is seen. LINES & SUPPORTING TUBES: Endotracheal tube is seen ending at 1.0 cm above sarah. Enteric tube is seen coiled up in left upper quadrant of abdomen. Procedure Note Faizan Kraus MD - 11/11/2024 EXAMINATION: XR CHEST CLINICAL INFORMATION: Readjusted ET tube COMPARISON: Chest x-ray on 11/10/2024 at 1501 hours TECHNIQUE: Frontal view of the chest was obtained on 11/11/2024 at 0527 hours. FINDINGS: HEART & VASCULARITY: There are moderate cardiomegaly and increased pulmonary vascularity. LUNGS: Lungs are hypoinflated. Extensive alveolar infiltrates are seen in bilateral lungs. No pneumothorax is seen. LINES & SUPPORTING TUBES: Endotracheal tube is seen ending at 1.0 cm above sarah. Enteric tube is seen coiled up in left upper quadrant of abdomen. IMPRESSION: 1. Unchanged moderate cardiomegaly and pulmonary venous congestion. 2. Unchanged hypoinflated lungs with Extensive alveolar infiltrates compatible with pulmonary edema due to congestive heart failure or bronchopneumonia. 3. Interval advancement of endotracheal tube close to sarah. 4. No interval change in position of coiled up enteric tube. Cindy FONTANA IMG DIAGNOSTIC BRIAN GING ORDERABLES * (ABNORMAL) POCT Glucose, Fingerstick (11/11/2024 7:11 AM EDT) POC Glucose 143(H) 65 - 99 mg/dL 11/11/2024 7:24 AM EDT Blood specimen / Unknown 11/11/2024 7:11 AM EDT 11/11/2024 7:24 AM EDT Satnam Silva MD POINT OF CARE TEST O RDERAGERONIMO Performing Organization Address [facility]/ZIP Co de Phone Number [facility] See Below * (ABNORMAL) POCT Glucose, Fingerstick (11/11/2024 3:36 AM EDT) POC Glucose 162(H) 65 - 99 mg/dL 11/11/2024 3:39 AM EDT Blood specimen / Unknown 11/11/2024 3:36 AM EDT 11/11/2024 3:39 AM EDT Satnam Silva MD POINT OF CARE TEST O RDERABLES [facility] LAB See Below * (ABNORMAL) HEPATIC FUNCTION PANEL (11/11/2024 12:01 AM EDT) Alkaline Phosphatase 96 32 - 122 U/L 11/11/2024 12:48 AM EDT [facility] Aspartate Aminotrans (AST) 36 10 - 50 U/L 11/11/2024 12:48 AM EDT [facility] Alanine Aminotrans (ALT) 49 10 - 50 U/L 11/11/2024 12:48 AM EDT [facility] Bilirubin, Total 0.8 0.2 - 1.0 mg/dL 11/11/2024 12:48 AM EDT [facility] Protein, Total 7.4 6.3 - 8.3 g/dL 11/11/2024 12:48 AM EDT [facility] Albumin 3.5 3.5 - 5.0 g/dL 11/11/2024 12:48 AM EDT [facility] Bilirubin, Direct 0.3(H) 0 - 0.2 mg/dL 11/11/2024 12:48 AM EDT [facility] Globulin 3.9 1.5 - 3.9 g/dL 11/11/2024 12:48 AM EDT [facility] Albumin/Globulin Ratio 0.9(L) 1.0 - 3.0 Ratio 11/11/2024 12:48 AM EDT [facility] Blood Blood specimen / Unknown 11/11/2024 12:01 AM EDT 11/11/2024 12:23 AM EDT Oxana Tomas PA-C LAB BLOOD ORDERABLE S Performing Organization Address City/[facility]/ZIP Co de Phone Number [address] [address], [address] [address] * (ABNORMAL) Phosphorus (11/11/2024 12:01 AM EDT) Phosphorus 4.7(H) 2.7 - 4.5 mg/dL 11/11/2024 12:48 AM EDT [facility] Blood Blood specimen / Unknown 11/11/2024 12:01 AM EDT 11/11/2024 12:23 AM EDT Oxana Toams PA-C LAB BLOOD ORDERABLE S [address] [address], [address] [address] * Magnesium (11/11/2024 12:01 AM EDT) Magnesium 2.1 1.6 - 2.7 mg/dL 11/11/2024 12:48 AM EDT [facility] Blood Blood specimen / Unknown 11/11/2024 12:01 AM EDT 11/11/2024 12:23 AM EDT Oxana Tomas PA-C LAB BLOOD ORDERABLE S [facility] [address] [place] [address], [address] [address] * (ABNORMAL) Basic Metabolic Panel (11/11/2024 12:01 AM EDT) Glucose 139(H) 65 - 99 mg/dL 11/11/2024 12:48 AM EDT [facility] Comment:Fasting: <100 mg/dL, Non-Fasting: <200 mg/dL (ADA 2004) Blood Urea Nitrogen (BUN) 33(H) 8 - 21 mg/dL 11/11/2024 12:48 [address] [facility] Creatinine 1.7(H) 0.4 - 1.1 mg/dL 11/11/2024 12:48 AM [facility] eGFR 36(L) >59 11/11/2024 12:48 AM [facility] Comment:CKD-EPI (2020) in mL /min/1.73 sq meters. Sodium 139 136 - 145 mmol/L 11/11/2024 12:48 AM [facility] Potassium 3.8 3.4 - 5.3 mmol/L 11/11/2024 12:48 AM [facility] Chloride 107 98 - 107 mmol/L 11/11/2024 12:48 AM [facility] CO2 22 22 - 33 mmol/L 11/11/2024 12:48 AM [facility] Anion Gap 10 7 - 17 11/11/2024 12:48 AM [facility] Calcium 8.8 8.7 - 10.5 mg/dL 11/11/2024 12:48 AM [facility] BUN/Creatinine Ratio 19 10.0 - 25.0 Ratio 11/11/2024 12:48 AM [facility] Blood Blood specimen / Unknown 11/11/2024 12:01 AM EDT 11/11/2024 12:23 AM EDT Oxana Tomas PA-C LAB BLOOD ORDERABLE S Performing Organization Address City/[facility]/ZIP Co de Phone Number [facility] [address] [place] [address], [address] [address] * (ABNORMAL) COMPLETE BLOOD COUNT, WITHOUT DIFFERENTIAL (11/11/2024 12:01 AM EDT) White Blood Cell Count 7.7 4.0 - 11.0 Thou/uL 11/11/2024 12:31 AM T [facility] Platelet Count 193 150 - 450 Thou/uL 11/11/2024 12:31 AM [facility] Hemoglobin 9.2(L) 11.7 - 15.7 g/dL 11/11/2024 12:31 AM [facility] Hematocrit 29.4(L) 35.0 - 47.0 % 11/11/2024 12:31 AM [facility] Red Blood Cell Count 3.52(L) 4.00 - 5.40 Mil/uL 11/11/2024 12:31 AM [facility] MCV 84 80 - 100 fL 11/11/2024 12:31 AM [facility] MCH 26.1(L) 27.0 - 31.0 pg 11/11/2024 12:31 AM [facility] MCHC 31.3 30.0 - 36.0 g/dL 11/11/2024 12:31 AM [facility] RDW 14.8(H) 11.5 - 14.5 % 11/11/2024 12:31 AM [facility] MPV 9.8 7.5 - 12.5 fL 11/11/2024 12:31 AM [facility] Blood Blood specimen / Unknown 11/11/2024 12:01 AM EDT 11/11/2024 12:23 AM EDT Oxana Tomas PA-C LAB BLOOD ORDERABLE S [facility] [address] [place] [address], [address] [address] * (ABNORMAL) POCT Glucose, Fingerstick (11/10/2024 11:33 PM EDT) POC Glucose 155(H) 65 - 99 mg/dL 11/10/2024 11:38 PM EDT Blood specimen / Unknown 11/10/2024 11:33 PM EDT 11/10/2024 11:38 PM EDT Satnam Silva MD POINT OF CARE TEST O RDERAGERONIMO Performing Organization Address [facility] Phone Number [facility] LAB See Below * (ABNORMAL) POCT Glucose, Fingerstick (11/10/2024 7:35 PM EDT) POC Glucose 106(H) 65 - 99 mg/dL 11/10/2024 7:41 PM EDT Blood specimen / Unknown 11/10/2024 7:35 PM EDT 11/10/2024 7:41 PM EDT Satnam Silva MD POINT OF CARE TEST O RDERAGERONIMO Performing Organization Address [facility] Phone Number [facility] LAB See Below * (ABNORMAL) POCT Glucose, Fingerstick (11/10/2024 3:42 PM EDT) POC Glucose 155(H) 65 - 99 mg/dL 11/10/2024 4:13 PM EDT Blood specimen / Unknown 11/10/2024 3:42 PM EDT 11/10/2024 4:13 PM EDT Satnam Silva MD POINT OF CARE TEST O RDERAGERONIMO Performing Organization Address [facility] Phone Number [facility] See Below * XR Chest 1 view-Portable (11/10/2024 3:07 PM EDT) Anatomical Region Laterality Modality Chest Computed Radiogr aphy 11/10/2024 2:40 PM EDT Impressions 11/11/2024 7:58 AM EDT 1. ??Unchanged moderate cardiomegaly and pulmonary venous congestion. 2. ??Persistent hypoinflated lungs with Extensive alveolar infiltrates compatible with pulmonary edema due to congestive heart failure or bronchopneumonia. 3. ??Interval retraction of endotracheal tube away from sarah. 4. ??No interval change in position of coiled up enteric tube. Narrative 11/11/2024 7:58 AM EDT EXAMINATION: XR CHEST CLINICAL INFORMATION: Confirm ETT, s/p retraction. COMPARISON: XR Chest 11/10/2024 at 0645 hours TECHNIQUE: Frontal view of the chest was obtained on 11/10/2024 at 1501 hours. HEART & VASCULARITY: There are moderate cardiomegaly and increased pulmonary vascularity. ?? LUNGS: Lungs are hypoinflated. Extensive alveolar infiltrates are seen in bilateral lungs. No pneumothorax is seen. LINES & SUPPORTING TUBES: Endotracheal tube is seen ending at 5.5 cm above sarah. Enteric tube is seen coiled up in left upper quadrant of abdomen. Procedure Note Faizan Kraus MD - 11/11/2024 EXAMINATION: XR CHEST CLINICAL INFORMATION: Confirm ETT, s/p retraction. COMPARISON: XR Chest 11/10/2024 at 0645 hours TECHNIQUE: Frontal view of the chest was obtained on 11/10/2024 at 1501 hours. HEART & VASCULARITY: There are moderate cardiomegaly and increased pulmonary vascularity. LUNGS: Lungs are hypoinflated. Extensive alveolar infiltrates are seen in bilateral lungs. No pneumothorax is seen. LINES & SUPPORTING TUBES: Endotracheal tube is seen ending at 5.5 cm above sarah. Enteric tube is seen coiled up in left upper quadrant of abdomen. IMPRESSION: 1. Unchanged moderate cardiomegaly and pulmonary venous congestion. 2. Persistent hypoinflated lungs with Extensive alveolar infiltrates compatible with pulmonary edema due to congestive heart failure or bronchopneumonia. 3. Interval retraction of endotracheal tube away from sarah. 4. No interval change in position of coiled up enteric tube. Edel Sheth PA-C [facility] DIAGNOSTIC IMAGI NG ORDERABLES * Phosphorus (11/10/2024 3:00 PM EDT) Phosphorus 4.3 2.7 - 4.5 mg/dL 11/10/2024 4:03 PM EDT [facility] Blood Blood specimen / Unknown 11/10/2024 3:00 PM EDT 11/10/2024 3:22 PM EDT Edel FONTANA-C LAB BLOOD ORDERABLES Performing Organization Address [facility] Co de Phone Number [address] [address], [address] [address] * Protime-INR (Routine) (11/10/2024 3:00 PM EDT) Anticoagulant NO ANTI COAGULANT MEDS 11/10/2024 2:56 PM EDT Prothrombin Time (PT) 13.2 10.0 - 13.5 seconds 11/10/2024 3:48 PM EDT [facility] INR 1.1 11/10/2024 3:48 PM EDT [facility] Comment:INR Therapeutic Rang es: Standard dose anticoagulant 2.0 to 3.0, High dose anticoagulant 2.5-3.5. Blood Blood specimen / Unknown 11/10/2024 3:00 PM EDT 11/10/2024 3:22 PM EDT Edel FONTANA-C LAB BLOOD ORDERABLES Performing Organization Address [facility] [place] [address], [address] [address] * Magnesium (11/10/2024 3:00 PM EDT) Magnesium 1.6 1.6 - 2.7 mg/dL 11/10/2024 4:03 PM EDT [facility] Blood Blood specimen / Unknown 11/10/2024 3:00 PM EDT 11/10/2024 3:22 PM EDT Edel FONTANA-C LAB BLOOD ORDERABLES Performing Organization Address City/[facility]/[place] [address], [address] [address] * (ABNORMAL) Basic Metabolic Panel (11/10/2024 3:00 PM EDT) Glucose 154(H) 65 - 99 mg/dL 11/10/2024 4:03 PM [facility] Comment:Fasting: <100 mg/dL, Non-Fasting: <200 mg/dL (ADA 2004) Blood Urea Nitrogen (BUN) 33(H) 8 - 21 mg/dL 11/10/2024 4:03 PM [facility] Creatinine 1.8(H) 0.4 - 1.1 mg/dL 11/10/2024 4:03 PM [facility] eGFR 33(L) >59 11/10/2024 4:03 PM [facility] Comment:CKD-EPI (2020) in mL /min/1.73 sq meters. Sodium 137 136 - 145 mmol/L 11/10/2024 4:03 PM [facility] Potassium 4.1 3.4 - 5.3 mmol/L 11/10/2024 4:03 PM [facility] Chloride 104 98 - 107 mmol/L 11/10/2024 4:03 PM [facility] CO2 20(L) 22 - 33 mmol/L 11/10/2024 4:03 PM [facility] Anion Gap 13 7 - 17 11/10/2024 4:03 PM [facility] Calcium 8.4(L) 8.7 - 10.5 mg/dL 11/10/2024 4:03 PM [facility] BUN/Creatinine Ratio 18 10.0 - 25.0 Ratio 11/10/2024 4:03 PM [facility] Blood Blood specimen / Unknown 11/10/2024 3:00 PM EDT 11/10/2024 3:22 PM EDT Edel Sheth PA-C LAB BLOOD ORDERABLES [address] [address], [address] [address] * (ABNORMAL) High Sensitivity Troponin T (Once) (11/10/2024 3:00 PM EDT) [facility] High Sensitivity Troponin T 70(HH) <15 ng/L 11/10/2024 4:03 PM EDT [facility] Comment:Recurring Critical R esult. Previously phoned. Delta (Change) 9(H) <3 11/10/2024 4:03 PM EDT [facility] Comment:Decreased Blood Blood specimen / Unknown 11/10/2024 3:00 PM EDT 11/10/2024 3:22 PM EDT Edel Sheth PA-C LAB BLOOD ORDERABLES [address] [address], [address] [address] * (ABNORMAL) Blood Gas with Cooximetry, Arterial (11/10/2024 3:00 PM EDT) [facility] Respiratory Info VENT 60% 11/11/19 25 2:56 PM EDT pH, Arterial 7.33(L) 7.35 - 7.45 11/10/2024 4:18 PM EDT [facility] pCO2, Arterial 37 32 - 45 mmHG 11/10/2024 4:18 PM T [facility] pO2, Arterial 82 75 - 95 mmHG 11/10/2024 4:18 PM EDT [facility] CO2, Total 20(L) 22 - 28 mmol/L 11/10/2024 4:18 PM EDT [facility] P/F Ratio 137 11/10/2024 4:18 PM EDT [facility] Comment:P/F < 300 or < 200: question ALI or ARDS. Base Deficiency 6.0 mmol/L 4:18 PM EDT [facility] Comment:Reference Range: Neg ative 2 to Positive 3 Hemogloblin, Total 9.6(L) 11.7 - 15.7 g/dL 11/10/2024 4:18 PM EDT [facility] O2 Saturation, Arterial 97.1(H) 94 - 97 % 11/10/2024 4:18 PM EDT [facility] Carboxyhemoglobin 1.7 0.0 - 2.0 % 11/10/2024 4:18 PM EDT [facility] Methemoglobin 0.8 0.4 - 1.5 % 11/10/2024 4:18 PM EDT [facility] O2 Content, Arterial 12.9(L) 15.7 - 21.6 mL/dL 11/10/2024 4:18 PM EDT [facility] Blood Blood specimen / Unknown 11/10/2024 3:00 PM EDT 11/10/2024 4:11 PM EDT Edel Sheth PA-C LAB BLOOD ORDERABLES Performing Organization Address City/[facility] [place] [address], [place] [address] * Urea Nitrogen, Urine, Random (11/10/2024 2:00 PM EDT) Urea Nitrogen, Random Urine 175 mg/dL 11/10/2024 3:02 PM EDT [facility] Comment:Reference range not established for random specimen. Urine Urine specimen / Unknown 11/10/2024 2:00 PM EDT 11/10/2024 2:33 PM EDT Amalia Tan PA-C URINE ORDERABLES Performing Organization Address [facility] [place] [address], [place] [address] * Creatinine, Urine, Random (11/10/2024 2:00 PM EDT) Creatinine, Urine, Random 19 mg/dL 11/10/2024 3:02 PM EDT [facility] Comment:Reference range not established for random specimen. Urine Urine specimen / Unknown 11/10/2024 2:00 PM EDT 11/10/2024 2:33 PM EDT Amalia Tan PA-C URINE ORDERABLES Performing Organization Address City/[facility]/ZIP Co de Phone Number [address] [address], [address] [address] * Sodium, Urine, Random (11/10/2024 2:00 PM EDT) Sodium, Urine Random 108 mmol/L 11/10/2024 3:02 PM EDT [facility] Comment:Reference range not established for random specimen. Urine Urine specimen / Unknown 11/10/2024 2:00 PM EDT 11/10/2024 2:33 PM EDT Amalia Tan PAVincent URINE ORDERABLES Performing Organization Address City/[facility]/[place] [address], [place] [address] * Respiratory Culture (aerobic and gram stain) (11/10/2024 2:00 PM EDT) Pathologist [facility] Gram stain suggestive of Many neutrophils No squamous cells Mixed normal jeramei 11/10/2024 3:55 PM EDT [facility] Culture Negative after 2 days 11/12/2024 11:35 AM EDT [facility] Sputum Specimen from trachea / Unknown 11/10/2024 2:00 PM EDT 11/10/2024 3:04 PM EDT Comment:Sputum Oxana Tomas PA-C MICROBIOLOGY - GENE RAL ORDERABLES [facility] [address] * MRSA PCR Screen, Qualitative (11/10/2024 2:00 PM EDT) MRSA Result Not Detected Not Detected 4:06 PM EDT [facility] Comment:Performed by the Xpe rt MRSA NxG Assay Swab, Anterior Nares Specimen from nose / Unknown 11/10/2024 2:00 PM EDT 11/10/2024 2:35 PM EDT Oxana Tomas PA-C MICROBIOLOGY - GENE RAL ORDERABLES [facility] [address] [place] [address], [address] [address] * (ABNORMAL) Legionella & Streptococcus Pneumoniae Antigen, Urine (11/10/2024 2:00 PM EDT) Legionella Antigen EIA, Urine Presumptive Negative Presumptive Negative 11/11/2024 9:31 AM EDT [facility] Comment: Presumptive Negative for L.pneumophila Ag in Urine, suggesting no recent or current infection. Infection due to Legionella cannot be ruled out since other serogroups and species may casue disease, Ag may not be present in Urine in early infection and the level of antigen present may be below the detection lilmit of the test. Streptococcal Antigen, Urine Presumptive Positive(A) Presumptive Negative 11/11/2024 9:31 AM EDT [facility] Comment:Presumptive Positive for Pneumococcal Pneumonia, suggesting current or past infection. Urine Urine specimen / Unknown 11/10/2024 2:00 PM EDT 11/10/2024 2:33 PM EDT Oxana Tomas PA-C URINE ORDERABLES [facility] [address] [place] [address], * ECG 12 lead (11/10/2024 1:32 PM EDT) Systolic BP 144 mmHg EKG [facility] Diastolic BP 70 mmHg EKG [facility] Ventricular rate 96 BPM EKG [facility] Atrial rate 96 BPM EKG [facility] P-R interval 168 ms EKG [facility] QRS duration 140 ms EKG [facility] Q-T interval 422 ms EKG [facility] QTC calculation (Bazett) 533 ms EKG [facility] P axis 36 degrees EKG [facility] R axis 91 degrees EKG [facility] T axis -8 degrees EKG [facility] 11/10/2024 1:32 PM EDT Narrative EKG [facility] - 11/10/2024 7:52 PM EDT Normal sinus rhythm Non-specific intra-ventricular conduction block Possible Anterolateral infarct , age undetermined Abnormal ECG When compared with ECG of 10-Nov-2024 06:30, (unconfirmed) Premature ventricular complexes are no longer Present Questionable change in QRS axis Confirmed by MD Storey Shishir ([id number]) on 11/10/2024 7:52:48 PM Procedure Note Juan Storey MD - 11/10/2024 Normal sinus rhythm Non-specific intra-ventricular conduction block Possible Anterolateral infarct , age undetermined Abnormal ECG When compared with ECG of 10-Nov-2024 06:30, (unconfirmed) Premature ventricular complexes are no longer Present Questionable change in QRS axis Confirmed by MD Storey Shishir ([id number]) on 11/10/2024 7:52:48 PM Luke King MD ECG ORDERABLES EKG [facility] * (ABNORMAL) POCT Glucose, Fingerstick (11/10/2024 1:25 PM EDT) POC Glucose 198(H) 65 - 99 mg/dL 11/10/2024 1:27 PM EDT Blood specimen / Unknown 11/10/2024 1:25 PM EDT 11/10/2024 1:27 PM EDT Satnam Silva MD POINT OF CARE TEST O RDERABLES HOSPITAL LAB See Below * XR Abdomen 1 view (11/10/2024 9:52 AM EDT) Anatomical Region Laterality Modality Abdomen Computed Radiogr aphy 11/10/2024 9:52 AM EDT Impressions 11/10/2024 1:30 PM EDT No acute finding. Narrative 11/10/2024 1:30 PM EDT EXAMINATION: XR ABDOMEN KUB CLINICAL INDICATION: Confirm OGT. COMPARISON: No prior plain film examination of the abdomen. Chest x-ray dated November 10, 2024. TECHNIQUE: Supine AP view of the abdomen. FINDINGS: The lower abdomen and right abdomen are cut off the image. The tip and sidehole of a presumed nasogastric tube project over the left upper quadrant, below the diaphragm. Suspect hepatosplenomegaly. No evidence of intestinal obstruction or free air. Mild degenerative changes of the spine. The patient is status post cholecystectomy. Procedure Note Kodi Castillo MD - 11/10/2024 EXAMINATION: XR ABDOMEN KUB CLINICAL INDICATION: Confirm OGT. COMPARISON: No prior plain film examination of the abdomen. Chest x-ray dated November 10, 2024. TECHNIQUE: Supine AP view of the abdomen. FINDINGS: The lower abdomen and right abdomen are cut off the image. The tip and sidehole of a presumed nasogastric tube project over the left upper quadrant, below the diaphragm. Suspect hepatosplenomegaly. No evidence of intestinal obstruction or free air. Mild degenerative changes of the spine. The patient is status post cholecystectomy. IMPRESSION: No acute finding. Oxana Tomas PA-C IMHattie DIAGNOSTIC IMAG ING ORDERABLES * ECHOCARDIOGRAM COMPREHENSIVE (11/10/2024 9:47 AM EDT) LV Diastolic Volume 106 mL LV Systolic Volume 79 mL IVS (F:0.6-0.9, M:0.6-1.0) 1.0 cm IVS Mean (F:0.6-0.9, M:0.6-1.0) 1.0 cm LVIDD (F:3.8-5.2, M:4.2-5.8) 5.6 cm LVIDD Mean (F:3.8-5.2, M:4.2-5.8) 5.6 cm LVIDS (F:2.2-3.5, M:2.5-4.0) 4.6 cm LVIDS (F:2.2-3.5, M:2.5-4.0) 4.6 cm LVOT diameter 2.0 cm LVOT diameter mean 2.0 cm LVOT mn grad mean 3.0 mmHg LVOT VTI MEAN 16.1 cm LVOT mn grad 3.0 mmHg LVOT VTI 16.1 cm LVOT peak dale 1.0 m/s LVOT peak dale mean 1.0 m/s PW (F:0.6-0.9, M:0.6-1.0) 1.0 cm PW Mean (F:0.6-0.9, M:0.6-1.0) 1.0 cm LA sup-inf (apical 2-ch view) 5.43 cm LA volume 41.7 mL RA area 13.5 cm2 RA 2D Volume 28.7 mL Sinuses of Valsalva 3.0 cm Sinuses of Valsalva Mean 3.0 cm Ascending aorta 3.2 cm Ascending aorta mean 3.2 cm E wave decelartion time 217 ms E wave decelartion time mean 217 ms MV stenosis pressure 1/2 time mean 63 ms MV stenosis pressure 1/2 time 63 ms MV Peak A-Wave 62.1 cm/s MV Peak A-Wave Mean 62.1 cm/s MV Peak E-Wave 70.7 cm/s MV Peak E-Wave Mean 70.7 cm/s RV Free wall pk S' 10.2 cm/s RV Free wall pk S' Mean 10.2 cm/s Tapse 1.9 cm Tapse Mean 1.9 cm Heart Rate 86 bpm BP Systolic 109 mmHg BP Diastolic 64 mmHg Height 0.00 inches Weight 199.00 lbs LVOT stroke volume 51 mL LVOT area 3.1 cm2 E/A ratio 1.14 MV valve area p 1/2 method 3.49 cm2 AV LVOT peak gradient 4.0 mmHg LV mass 219.7 g Zimmerman BP EF (55-75) 25 % LV RWT 0.36 Left Ventricular Cardiac Output 4.3 L/min BSA 0.00 m2 GLS 6.3 % Anatomical Region Laterality Modality Ultrasound Narrative 11/10/2024 9:59 AM EDT ?Left ventricular systolic function is severely decreased. The quantitative EF by 2D Zimmerman biplane is 25%. ?Right ventricular systolic function is normal. ?Valve structure and function are normal. ?There is no previous study for comparison in our system. Technical Details Overall the study quality was adequate. Left Ventricle The left ventricle is normal in size. There is eccentric hypertrophy. Left ventricular systolic function is severely decreased. The quantitative EF by 2D Zimmerman biplane is 25%. Global longitudinal strain is abnormal at -6.3%. There is global hypokinesis without regional variation. Diastolic function could not be accurately assessed. Right Ventricle The right ventricle is normal in size. Right ventricular systolic function is normal. Left Atrium Left atrial size is normal. Right Atrium Right atrial size is normal. Based on IVC diameter and collapse, right atrial pressure is estimated to be normal (3 mmHg). Mitral Valve The mitral valve is structurally normal. There is no mitral regurgitation. Tricuspid Valve The tricuspid valve is structurally normal. There is trace tricuspid regurgitation. The estimated right ventricular systolic pressure is normal. Aortic Valve The aortic valve is tricuspid. There is no aortic regurgitation or stenosis. Pulmonic Valve The pulmonic valve was not well visualized. There is no pulmonic regurgitation. Ascending Aorta The aortic root dimension is normal. Pericardium There is no pericardial effusion. Prior Study There is no previous study for comparison in our system. Oxana Tomas PA-C CV ECHO ORDERABLES * (ABNORMAL) POCT Glucose, Fingerstick (11/10/2024 9:15 AM EDT) POC Glucose 177(H) 65 - 99 mg/dL 11/10/2024 9:20 AM EDT Blood specimen / Unknown 11/10/2024 9:15 AM EDT 11/10/2024 9:20 AM EDT Satnam Silva MD POINT OF CARE TEST O RDERABLES HOSPITAL LAB See Below * Respiratory PCR Panel (11/10/2024 9:09 AM EDT) Adenovirus Not Detected Not Detected 11/10/2024 12:41 PM EDT [facility] Coronavirus 229E Not Detected Not Detected 11/10/2024 12:41 PM EDT [facility] Coronavirus HKU1 Not Detected Not Detected 11/10/2024 12:41 PM EDT [facility] Coronavirus NL63 Not Detected Not Detected 11/10/2024 12:41 PM EDT [facility] Coronavirus OC43 Not Detected Not Detected 11/10/2024 12:41 PM EDT [facility] Human Metapneumovirus Not Detected Not Detected 11/10/2024 12:41 PM EDT [facility] Rhinovirus/Enterov irus Not Detected Not Detected 11/10/2024 12:41 PM EDT [facility] Influenza A Not Detected Not Detected 11/10/2024 12:41 PM EDT [facility] Influenza B Not Detected Not Detected 11/10/2024 12:41 PM EDT [facility] Parainfluenza 1 (PIV1) Not Detected Not Detected 11/10/2024 12:41 PM T [facility] Parainfluenza 2 (PIV2) Not Detected Not Detected 11/10/2024 12:41 PM T [facility] Parainfluenza 3 (PIV3) Not Detected Not Detected 11/10/2024 12:41 PM EDT [facility] Parainfluenza 4 (PIV4) Not Detected Not Detected 11/10/2024 12:41 PM EDT [facility] Respiratory Syncytial Virus Not Detected Not Detected 11/10/2024 12:41 PM T [facility] Bordetella pertussis Not Detected Not Detected 11/10/2024 12:41 PM EDT [facility] Chlamydophila pneumoniae Not Detected Not Detected 11/10/2024 12:41 PM T [facility] Mycoplasma pneumoniae Not Detected Not Detected 11/10/2024 12:41 PM T [facility] Bordetella parapertussis Not Detected Not Detected 11/10/2024 12:41 PM EDT [facility] SARS CoV 2 Not Detected Not Detected 11/10/2024 12:41 PM EDT [facility] Swab, Nasopharyngeal Nasopharyngeal swab / Unknown 11/10/2024 9:09 AM EDT 11/10/2024 9:22 AM EDT Oxana Tomas PA-C MICROBIOLOGY - GENE [facility] ORDERABLES [facility] [address] [place] [address], [place] * Blood Culture (11/10/2024 9:04 AM EDT) Pathologist [facility] Culture Sterile after 5 days 11/15/2024 7:59 AM EDT [facility] Blood Blood specimen / Unknown 11/10/2024 9:04 AM EDT 11/10/2024 9:36 AM EDT Comment:Blood Oxana Tomas PA-C LAB BLOOD ORDERABLE S [facility] [address] [place] [address], [place] * (ABNORMAL) Blood Gas with Cooximetry, Venous (11/10/2024 8:56 AM EDT) [facility] Respiratory Info VENT 100% 11/11/19 8:38 AM EDT Venous Blood PH 7.24(L) 7.33 - 7.43 11/10/2024 9:22 [address] [facility] Venous pCO2 51(H) 35 - 50 mmHG 11/10/2024 9:22 AM [facility] Venous pO2 65(H) 0 - 60 mmHG 11/10/2024 9:22 AM [facility] Venous Total CO2 23 23 - 29 mmol/L 11/10/2024 9:22 AM [facility] Base Deficiency 5.7 mmol/L 9:22 AM T [facility] Comment:Reference Range: Neg ative 2 to Positive 3 Hemogloblin, Total 6.3(L) 11.7 - 15.7 g/dL 11/10/2024 9:22 AM [facility] O2 Saturation, Venous 91.1 % 08/2025 9:22 AM [facility] Carboxyhemoglobin 2.2(H) 0.0 - 2.0 % 11/10/2024 9:22 AM [facility] Methemoglobin 0.7 0.4 - 1.5 % 11/10/2024 9:22 AM [facility] Venous O2 Content 5.6(L) 7.2 - 17.2 mL/dL 11/10/2024 9:22 AM [facility] Blood Blood specimen / Unknown 11/10/2024 8:56 AM EDT 11/10/2024 9:17 AM EDT Oxana FONTANA-Zeynep LAB BLOOD ORDERABLE S [facility] [address] [place] [address], [address] [address] * Blood Culture (11/10/2024 8:56 AM EDT) [facility] Culture Sterile after 5 days 11/15/2024 7:59 AM EDT [facility] Blood Blood specimen / Unknown 11/10/2024 8:56 AM EDT 11/10/2024 9:36 AM EDT Comment:Blood Oxana REYNAC LAB BLOOD ORDERABLE S [facility] [address] [place] [address], * (ABNORMAL) Blood Gas with Cooximetry, Arterial (11/10/2024 7:50 AM EDT) [facility] Signature Respiratory Info VENT 40% 11/11/19 7:51 AM EDT pH, Arterial 7.30(L) 7.35 - 7.45 11/10/2024 8:13 AM EDT [facility] pCO2, Arterial 38 32 - 45 mmHG 11/10/2024 8:13 AM T [facility] pO2, Arterial 141(H) 75 - 95 mmHG 11/10/2024 8:13 AM EDT [facility] CO2, Total 20(L) 22 - 28 mmol/L 11/10/2024 8:13 AM EDT [facility] P/F Ratio 353 11/10/2024 8:13 AM T [facility] Base Deficiency 7.0 mmol/L 8:13 AM EDT [facility] Comment:Reference Range: Neg ative 2 to Positive 3 Hemogloblin, Total 10.8(L) 11.7 - 15.7 g/dL 11/10/2024 8:13 AM EDT [facility] O2 Saturation, Arterial 99.1(H) 94 - 97 % 11/10/2024 8:13 AM EDT [facility] Carboxyhemoglobin 1.0 0.0 - 2.0 % 11/10/2024 8:13 AM EDT [facility] Methemoglobin 0.7 0.4 - 1.5 % 11/10/2024 8:13 AM EDT [facility] O2 Content, Arterial 15.0(L) 15.7 - 21.6 mL/dL 11/10/2024 8:13 AM EDT [facility] Blood Blood specimen / Unknown 11/10/2024 7:50 AM EDT 11/10/2024 8:06 AM EDT Satnam Silva MD LAB BLOOD ORDERABLES [address] [address], [address] [address] * XR Chest 1 view-Portable (11/10/2024 6:54 AM EDT) Anatomical Region Laterality Modality Chest Computed Radiogr aphy 11/10/2024 6:30 AM EDT Impressions 11/10/2024 8:20 AM EDT 1. ??ETT placement. Recommend retraction. 2. ??Stable bilateral infiltrates. 3. ??Superior mediastinal prominence. Consider CT follow-up correlation as clinically warranted. This may reflect technique. RECOMMENDATIONS: Narrative 11/10/2024 8:20 AM EDT EXAMINATION: XR CHEST 1 VIEW-PORTABLE CLINICAL HISTORY: 54f s/p arrest; xfer [facility]; HARPREET; diminished bases; eval tube placement/ptx COMPARISON: Earlier same day FINDINGS: Tip of ETT terminates over the left mainstem bronchus approximately 2.5 cm distal of the bifurcation. Recommend retraction. The NG tube is stable. Persistent and unchanged symmetric bilateral interstitial and airspace opacities. No pneumothorax. Stable heart size and mediastinal contours. The aortic knob is poorly defined. Procedure Note Madi Lopez MD - 11/10/2024 EXAMINATION: XR CHEST 1 VIEW-PORTABLE CLINICAL HISTORY: 54f s/p arrest; xfer [facility]; HARPREET; diminished bases; eval tube placement/ptx COMPARISON: Earlier same day FINDINGS: Tip of ETT terminates over the left mainstem bronchus approximately 2.5 cm distal of the bifurcation. Recommend retraction. The NG tube is stable. Persistent and unchanged symmetric bilateral interstitial and airspace opacities. No pneumothorax. Stable heart size and mediastinal contours. The aortic knob is poorly defined. IMPRESSION: 1. ETT placement. Recommend retraction. 2. Stable bilateral infiltrates. 3. Superior mediastinal prominence. Consider CT follow-up correlation as clinically warranted. This may reflect technique. RECOMMENDATIONS: Satnam Silva MD IMG DIAGNOSTIC IMAGI NG ORDERABLES * TSH, HIGHLY SENSITIVE (11/10/2024 6:42 AM EDT) TSH, Highly Sensitive 2.76 0.27 - 4.20 mIU/L 11/10/2024 8:53 AM EDT [facility] 11/10/2024 6:42 AM EDT 11/10/2024 7:15 AM EDT Satnam Silva MD LAB BLOOD ORDERABLES Performing Organization Address City/[facility]/ZIP Co de Phone Number [address] [address], [address] [address] * (ABNORMAL) proBNP, N-terminal (11/10/2024 6:42 AM EDT) proBNP, N-terminal 2,385(H) <125 pg/mL 11/10/2024 8:53 AM EDT [facility] 11/10/2024 6:42 AM EDT 11/10/2024 7:15 AM EDT Satnam Silva MD LAB BLOOD ORDERABLES Performing Organization Address City/[facility]/[place] [address], [address] [place] [address] * (ABNORMAL) PROCALCITONIN (11/10/2024 6:42 AM EDT) Procalcitonin 1.14(H) <0.09 ng/mL 11/10/2024 8:53 AM EDT [facility] Comment: (NOTE) ?Procalcitonin (PCT) Guided Antibiotic ? Management for Respiratory Infection ? Initial PCT interpretation: < 0.09 ng/mL: ? Antibiotics NOT likely needed ? (bacterial etiology very unlikely). 0.09 - 0.25 ng/mL: ??Antibiotics are NOT likely needed unless clinical ? concern for infection ? (bacterial etiology unlikely). 0.26 - 0.5 ng/mL: ?? Antibiotics likely needed ? (bacterial etiology likely). ? Repeat PCT after 3-5 days. > 0.5 ng/mL: ?Antibiotics likely needed ? (bacterial etiology very likely). ? Repeat PCT after 3-5 days. Repeat PCT interpretation: Initial PCT < 5 ng/mL: Consider stopping antibiotics ?when PCT < 0.25 ng/mL. Initial PCT > 5 ng/mL: Consider stopping antibiotics when 80% ?reduction in PCT from initial value or ?PCT < 0.25 ng/mL. The above interpretative values are not appropriate for non-respiratory infectious diagnostics 11/10/2024 6:42 AM EDT 11/10/2024 7:15 AM EDT Satnam Silva MD LAB BLOOD ORDERABLES Performing Organization Address City/[facility]/[place] [address], [place] [address] * (ABNORMAL) High Sensitivity Troponin T (11/10/2024 6:42 AM EDT) High Sensitivity Troponin T 79(HH) <15 ng/L 11/10/2024 8:53 AM EDT [facility] Delta (Change) NO PREVIOUS RESULT <3 11/10/2024 8:53 AM EDT [facility] 11/10/2024 6:42 AM EDT 11/10/2024 7:15 AM EDT Satnam Silva MD LAB BLOOD ORDERABLES Performing Organization Address City/[facility]/[place] [address], [place] [address] * Lactic Acid, Plasma (STAT) (11/10/2024 6:42 AM EDT) Lactic Acid 1.3 0.5 - 1.9 mmol/L 11/10/2024 7:26 AM EDT [facility] Blood Blood specimen / Unknown 11/10/2024 6:42 AM EDT 11/10/2024 6:59 AM EDT Satnam Silva MD LAB BLOOD ORDERABLES [address] [address], [facility] [address] [place] [address] * (ABNORMAL) Comprehensive metabolic panel (11/10/2024 6:42 AM EDT) Glucose 217(H) 65 - 99 mg/dL 11/10/2024 7:41 AM [facility] Comment:Fasting: <100 mg/dL, Non-Fasting: <200 mg/dL (ADA 2004) Blood Urea Nitrogen (BUN) 31(H) 8 - 21 mg/dL 11/10/2024 7:41 AM [facility] Creatinine 1.8(H) 0.4 - 1.1 mg/dL 11/10/2024 7:41 AM [facility] eGFR 33(L) >59 11/10/2024 7:41 AM [facility] Comment:CKD-EPI (2020) in mL /min/1.73 sq meters. Sodium 137 136 - 145 mmol/L 11/10/2024 7:41 AM [facility] Potassium 4.0 3.4 - 5.3 mmol/L 11/10/2024 7:41 AM [facility] Chloride 104 98 - 107 mmol/L 11/10/2024 7:41 AM [facility] CO2 19(L) 22 - 33 mmol/L 11/10/2024 7:41 AM [facility] Calcium 8.5(L) 8.7 - 10.5 mg/dL 11/10/2024 7:41 AM [facility] Alkaline Phosphatase 109 32 - 122 U/L 11/10/2024 7:41 AM [facility] Aspartate Aminotrans (AST) 46 10 - 50 U/L 11/10/2024 7:41 AM [facility] Alanine Aminotrans (ALT) 54(H) 10 - 50 U/L 11/10/2024 7:41 AM [facility] Bilirubin, Total 0.6 0.2 - 1.0 mg/dL 11/10/2024 7:41 AM [facility] Protein, Total 7.1 6.3 - 8.3 g/dL 11/10/2024 7:41 AM [facility] Albumin 3.4(L) 3.5 - 5.0 g/dL 11/10/2024 7:41 AM [facility] BUN/Creatinine Ratio 17 10.0 - 25.0 Ratio 11/10/2024 7:41 AM [facility] Globulin 3.7 1.5 - 3.9 g/dL 11/10/2024 7:41 AM [facility] Albumin/Globulin Ratio 0.9(L) 1.0 - 3.0 Ratio 11/10/2024 7:41 AM [facility] Anion Gap 14 7 - 17 11/10/2024 7:41 AM [facility] Blood Blood specimen / Unknown 11/10/2024 6:42 AM EDT 11/10/2024 7:15 AM EDT Satnam Silva MD LAB BLOOD ORDERABLES Performing Organization Address City/State/[facility] Co de Phone Number [address] [address], [address] [address] * (ABNORMAL) Complete Blood Count WITH Differential (11/10/2024 6:42 AM EDT) White Blood Cell Count 13.2(H) 4.0 - 11.0 Thou/uL 11/10/2024 7:31 AM [facility] Platelet Count 361 150 - 450 Thou/uL 11/10/2024 7:31 AM [facility] Hemoglobin 10.5(L) 11.7 - 15.7 g/dL 11/10/2024 7:31 AM [facility] Hematocrit 33.7(L) 35.0 - 47.0 % 11/10/2024 7:31 AM [facility] Red Blood Cell Count 3.98(L) 4.00 - 5.40 Mil/uL 11/10/2024 7:31 AM [facility] MCV 85 80 - 100 fL 11/10/2024 7:31 AM [facility] MCH 26.4(L) 27.0 - 31.0 pg 11/10/2024 7:31 AM [facility] MCHC 31.2 30.0 - 36.0 g/dL 11/10/2024 7:31 AM [facility] RDW 14.5 11.5 - 14.5 % 11/10/2024 7:31 AM [facility] MPV 10.1 7.5 - 12.5 fL 11/10/2024 7:31 AM [facility] Neutrophils Auto 71.7 % 11/11/19 7:31 AM [facility] Immature Granulocytes 0.8 % 11/10/2024 7:31 AM [facility] Lymphocytes Auto 17.6 % 11/11/19 7:31 AM [facility] Monocytes Auto 9.5 % 11/10/2024 7:31 AM [facility] Eosinophils Auto 0.1 % 11/11/19 7:31 AM [facility] Basophils Auto 0.3 % 11/10/2024 7:31 AM [facility] Abs Neutrophils Auto 9.44(H) 2.00 - 7.50 Thou/uL 11/10/2024 7:31 AM [facility] Abs Immature Granulocytes 0.11(H) 0.00 - 0.10 Thou/uL 11/10/2024 7:31 AM [facility] Abs Lymphocytes Auto 2.31 1.50 - 4.50 Thou/uL 11/10/2024 7:31 AM [facility] Abs Monocytes Auto 1.25 0.20 - 1.50 Thou/uL 11/10/2024 7:31 AM [facility] Abs Eosinophils Auto 0.01 0.00 - 0.70 Thou/uL 11/10/2024 7:31 AM [facility] Abs Basophils Auto 0.04 0.00 - 0.20 Thou/uL 11/10/2024 7:31 AM [facility] Blood Blood specimen / Unknown 11/10/2024 6:42 AM EDT 11/10/2024 7:15 AM EDT Satnam Silva MD [place] [address], [address] [address] * (ABNORMAL) Triglycerides (11/10/2024 6:42 AM EDT) Triglycerides 210(H) <150 mg/dL 11/10/2024 7:41 AM EDT [facility] Blood Blood specimen / Unknown 11/10/2024 6:42 AM EDT 11/10/2024 7:15 AM EDT Satnam Silva MD LAB BLOOD ORDERABLES [address] [address], [address] [address] * ECG 12 lead (11/10/2024 6:30 AM EDT) Ventricular rate 84 BPM EKG [facility] Atrial rate 84 BPM EKG [facility] P-R interval 164 ms EKG [facility] QRS duration 144 ms EKG [facility] Q-T interval 452 ms EKG [facility] QTC calculation (Bazett) 535 ms EKG [facility] P axis 35 degrees EKG [facility] R axis -3 degrees EKG [facility] T axis 184 degrees EKG [facility] 11/10/2024 6:3 0 AM EDT Narrative EKG [facility] - 11/10/2024 8:20 PM EDT Sinus rhythm with occasional Premature ventricular complexes Left bundle branch block Abnormal ECG No previous ECGs available Confirmed by MD Storey Shishir ([id number]) on 11/10/2024 8:20:16 PM Procedure Note Juan Storey MD - 11/10/2024 Sinus rhythm with occasional Premature ventricular complexes Left bundle branch block Abnormal ECG No previous ECGs available Confirmed by MD Storey Shishir ([id number]) on 11/10/2024 8:20:16 PM Satnma Silva MD ECG ORDERABLES EKG [facility] * (ABNORMAL) POCT Glucose, Fingerstick (11/10/2024 6:28 AM EDT) POC Glucose 237(H) 65 - 99 mg/dL 11/10/2024 6:33 AM EDT Blood specimen / Unknown 11/10/2024 6:28 AM EDT 11/10/2024 6:33 AM EDT Satnam Silva MD POINT OF CARE TEST O RDERABLES HOSPITAL LAB See Below * MAN Archive for reference only CR (11/10/2024 6:15 AM EDT) Narrative SYSTEMGENERATED, DOCUMENTATION - 11/10/2024 6:08 AM EDT This order has been auto-finalized and does not contain a result. Heather Plascencia PA-C [employer] [employer] * MAN Archive for reference only CR (11/10/2024 6:10 AM EDT) Narrative SYSTEMGENERATED, DOCUMENTATION - 11/10/2024 6:08 AM EDT This order has been auto-finalized and does not contain a result. Heather FONTANA-Zeynep [employer] documented in this encounter Visit Diagnoses Diagnosis Cardiac arrest (HCC)- Primary Cardiac arrest Acute respiratory failure (HCC) Acute respiratory failure Cardiac arrest (HCC) Cardiac arrest Cardiomyopathy (HCC) Other primary cardiomyopathies Shock (HCC) Unspecified shock Indwelling catheter present on admission Left bundle branch block (LBBB) documented in this encounter Admitting Diagnoses Diagnosis Cardiac arrest (HCC) Cardiac arrest documented in this encounter Administered Medications Inactive Administered Medications - up to 1 most recent administrations Medication Order MAR Action Action Date Dose Rate Site sodium chloride 0.9% (NS) infusion 100 mL/hr, Intravenous, Continuous, Starting on Fri11/16/24 at 0900, For 4 hours, For prevention of GILBERTO due to contrast - pre-procedure New Bag 11/16/2024 8:32 AM EDT 100 mL/hr 100 mL/hr sodium chloride 0.9% (NS) infusion 100 mL/hr, Intravenous, Continuous, Starting on Fri11/16/24 at 1730, For 3 hours New Bag 11/16/2024 5:32 PM EDT 100 mL/hr 100 mL/hr acetaminophen (TYLENOL) tablet 650 mg 650 mg, Oral, Every 6 hours PRN, mild pain 1-3, Starting on Fri11/10/24 at 1821 Given 11/16/2024 9:10 PM EDT 650 mg apixaban (ELIQUIS) tablet 10 mg 10 mg, Oral, Every 12 hours scheduled, First dose (after last modification) on Fri11/17/24 at 2100, For 4 days, Tablets may be crushed and suspended in 60 mL of water, D5W, or apple juice or mixed with applesauce; administer immediately. For delivery through a nasogastric tube, crushed tablets may be suspended in 60 mL of water or D5W followed by immediate delivery., Indication for Anticoagulation: DVT - Treatment Given 11/18/2024 8:28 AM EDT 10 mg apixaban (ELIQUIS) tablet 5 mg 5 mg, Oral, Every 12 hours scheduled, First dose (after last modification) on Fri11/22/24 at 0900, Tablets may be crushed and suspended in 60 mL of water, D5W, or apple juice or mixed with applesauce; administer immediately. For delivery through a nasogastric tube, crushed tablets may be suspended in 60 mL of water or D5W followed by immediate delivery., Indication for Anticoagulation: DVT - Treatment aspirin chewable tablet 81 mg 81 mg, Oral, Daily, First dose on Fri11/12/24 at 0900 Given 11/18/2024 8:22 AM EDT 81 mg atorvastatin (LIPITOR) tablet 40 mg 40 mg, Oral, Daily, First dose on Fri11/12/24 at 0900 Given 11/18/2024 8:23 AM EDT 40 mg azithromycin (ZITHROMAX) 500 mg in sodium chloride (NS) 0.9 % 250 mL IVPB-WTD 500 mg, Intravenous, Administer over 90 Minutes, Every 24 hours, First dose on Fri11/10/24 at 0839, For 3 doses, All antimicrobials used at [facility] require an indication. Please complete the following documentation. Medical Prophylaxis, On hold since Fri11/10/2024 at 1501 until manually unheld New Bag 11/10/2024 9:23 AM EDT 500 mg 166.7 mL/hr bisacodyl (DULCOLAX) suppository 10 mg 10 mg, Rectal, Daily PRN, constipation, if no bowel movement by day 2, Starting on Fri11/10/24 at 0749 carvedilol (COREG) tablet 6.25 mg 6.25 mg, Oral, 2 times daily with meals, First dose on Fri11/12/24 at 1700, Administer with food to minimize the risk of orthostatic hypotension. Hold for HR less than 45 bpm or SBP less than 90 mmHg or bronchospasm develops. Notify provider if a dose is held. Given 11/18/2024 8:23 AM EDT 6.25 mg cefepime (MAXIPIME) 2 g in sodium chloride-MBP (NS) 100 mL IVPB-MBP 2 g, Intravenous, Administer over 3 Hours, Every 12 hours, First dose on Fri11/10/24 at 0758, All antimicrobials used at [facility] require an indication. Please complete the following documentation. Bacterial Infection Suspected, Type of Therapy: New Therapy, Indication: Pneumonia New Bag 11/11/2024 7:52 AM EDT 2 g 33.3 mL/hr cefTRIAXone (ROCEPHIN) 1 g in sodium chloride-MBP (NS) 100 mL IVPB-MBP 1 g, Intravenous, at 200 mL/hr, Every 24 hours, First dose on Fri11/11/24 at 1030, All antimicrobials used at [facility] require an indication. Please complete the following documentation. Bacterial Infection Documented, Type of Therapy: Modification of Therapy, Indication: Pneumonia New Bag 11/14/2024 9:15 AM EDT 1 g 200 mL/hr cefUROXime (CEFTIN) tablet 500 mg 500 mg, Oral, Every 12 hours scheduled, First dose on Fri11/14/24 at 1400, Type of Therapy: Modification of Therapy, Indication: Pneumonia Given 11/18/2024 8:23 AM EDT 500 mg chlorhexidine gluconate 2 % wipes - central line CHG application Topical, Daily, First dose on Fri11/10/24 at 0900, Each pack = 6 wipes. Dose = 1 each. Given 11/11/2024 12:52 PM EDT 1 each chlorothiazide (DIURIL) 250 mg in sodium chloride (NS) 0.9 % 50 mL IVPB 250 mg, Intravenous, at 118 mL/hr, Once, On Fri11/12/24 at 1200, For 1 dose, Hold for SBP less than 100 mmHg. Notify provider if a dose is held. New Bag 11/12/2024 1:23 PM EDT 250 mg 118 mL/hr chlorothiazide (DIURIL) 250 mg in sodium chloride (NS) 0.9 % 50 mL IVPB 250 mg, Intravenous, at 118 mL/hr, Once, On 11/13/24 at 1100, For 1 dose, Hold for SBP less than 100 mmHg. Notify provider if a dose is held. New Bag 11/13/2024 11:57 AM EDT 250 mg 118 mL/hr chlorothiazide (DIURIL) 500 mg in sodium chloride (NS) 0.9 % 50 mL IVPB 500 mg, Intravenous, at 136 mL/hr, Once, On Zahraa 11/11/24 at 1430, For 1 dose, Hold for SBP less than 100 mmHg. Notify provider if a dose is held. New Bag 11/11/2024 4:30 PM EDT 500 mg 136 mL/hr dextrose 50 % solution 12.5 g 12.5 g, Intravenous, Every 15 min PRN, low blood sugar, between 50 and 69 mg/dL, Starting on 11/13/24 at 1631, For patient with IV access who is NPO or unable to swallow. See Hypoglycemia Management guideline. dextrose 50 % solution 25 g 25 g, Intravenous, Every 15 min PRN, low blood sugar, less than 50 mg/dL, Starting on 11/13/24 at 1631, For patient with IV access who is NPO or unable to swallow. See Hypoglycemia Management guideline. doxycycline (VIBRAMYCIN) 100 mg in sodium chloride-MBP (NS) 100 mL IVPB-MBP 100 mg, Intravenous, Administer over 120 Minutes, Every 12 hours, First dose on 11/10/24 at 1730, All antimicrobials used at [facility] require an indication. Please complete the following documentation. Bacterial Infection Suspected, Type of Therapy: New Therapy, Indication: Pneumonia New Bag 11/11/2024 4:43 AM EDT 100 mg 50 mL/hr empagliflozin (JARDIANCE) tablet 10 mg 10 mg, Oral, Daily, First dose on 11/13/24 at 1230 Given 11/18/2024 8:26 AM EDT 10 mg enoxaparin (LOVENOX) syringe 90 mg 90 mg (rounded from 90.5 mg = 1 mg/kg ? 90.5 kg), Subcutaneous, Every 12 hours, First dose on 11/13/24 at 1200, Not for use in patients receiving dialysis., Indication for Anticoagulation: VTE Treatment Given 11/15/2024 12:33 PM EDT 90 mg Abdominal Tissue famotidine (PEPCID) tablet 20 mg 20 mg, Oral, Daily, First dose on Fri11/12/24 at 1100 Given 11/18/2024 8:24 AM EDT 20 mg ferrous sulfate 300 mg/5 mL oral solution 300 mg 300 mg, Oral, Daily, First dose on Zahraa 11/11/24 at 1430, Administer ferrous sulfate 2 hours prior to, or 4 hours after antacids. Should be taken with water or juice on an empty stomach; may be administered with food to prevent irritation; however, not with cereals, dietary fiber, tea, coffee, eggs, or milk Each 5 mL of oral solution = 300 mg of ferrous sulfate = 60 mg of elemental iron Given 11/12/2024 8:01 AM EDT 300 mg furosemide (LASIX) injection 40 mg 40 mg, Intravenous, Once, On Fri11/10/24 at 1033, For 1 dose, Hold for SBP less than 100 mmHg. Notify provider if a dose is held. If ordered IV Push: administer undiluted over 2 minutes. Given 11/10/2024 10:48 AM EDT 40 mg furosemide (LASIX) injection 40 mg 40 mg, Intravenous, Once, On Fri11/10/24 at 1830, For 1 dose, Hold for SBP less than 100 mmHg. Notify provider if a dose is held. If ordered IV Push: administer undiluted over 2 minutes. Given 11/10/2024 6:27 PM EDT 40 mg furosemide (LASIX) injection 40 mg 40 mg, Intravenous, 2 times daily, First dose on Fri11/11/24 at 0900, Hold for SBP less than 100 mmHg. Notify provider if a dose is held. If ordered IV Push: administer undiluted over 2 minutes. Given 11/12/2024 8:01 AM EDT 40 mg furosemide (LASIX) injection 40 mg 40 mg, Intravenous, 2 times daily, First dose (after last modification) on Fri11/12/24 at 1400, Hold for SBP less than 100 mmHg. Notify provider if a dose is held. If ordered IV Push: administer undiluted over 2 minutes. Given 11/15/2024 9:10 AM EDT 40 mg glucagon (GLUCAGEN) injection 1 mg 1 mg, Intramuscular, Daily PRN, low blood sugar, for Blood Glucose LESS than 70 mg/dL and NPO and no IV access, Starting on 11/13/24 at 1631, Glucagon may be repeated x 1 (for a total of 2 doses per hypoglycemic event) if patient remains hypoglycemic after first dose. Do not use with hepatic disease or alcohol intoxication. See Hypoglycemia Management guideline. Reconstitute vial with 1 mL sterile water for injection. glucose (GLUTOSE 15) 40 % oral gel 37.5 g 37.5 g (1 Tube), Oral, Every 15 min PRN, low blood sugar, between 50 and 69 mg/dL, Starting on 11/13/24 at 1631, Juice or soda is preferred for alert patients (4 oz juice or 6 oz soda). Use glucose gel for patients with fluid restriction. See Hypoglycemia Management guideline. Each 37.5 gram tube of glucose 40 % = 15 grams of glucose. glucose (GLUTOSE 15) 40 % oral gel 75 g 75 g (2 Tube), Oral, Every 15 min PRN, low blood sugar, less than 50 mg/dL, Starting on 11/13/24 at 1631, Juice or soda is preferred for alert patients (8 oz juice or 12 oz soda). Use glucose gel for patients with fluid restriction. See Hypoglycemia Management guideline. Each 37.5 gram tube of glucose 40 % = 15 grams of glucose. heparin (porcine) 5000 unit/mL injection 5,000 Units 5,000 Units, Subcutaneous, Every 8 hours scheduled, First dose on Fri11/10/24 at 1400, For subcutaneous use the injection sites should be rotated (usually left and right portions of the abdomen, above iliac crest). Given 11/11/2024 6:13 AM EDT 5,000 Units Left Arm heparin (porcine) IV infusion 25,000 units in 500 mL 0.45% NaCl (premix) 27.63 mL/hr (15 Units/kg/hr ? 92.1 kg), Intravenous, Continuous, Starting on Zahraa 11/11/24 at 1200, HEPARIN THROMBOEMBOLIC/STAND IGNACIA/FULL DOSE PROTOCOL: Initial Infusion Dose: See dose above, MAX initial dose 1,800 units/hr (120 kg and above) Dose adjustment instructions: - Obtain a Heparin Anti-factor Xa (Anti-Xa) level 6 hours after start of infusion and 6 hours after every dose change. - Once patient is within therapeutic range for two consecutive Anti-Xa measurements, then obtain Anti-Xa daily with AM labs until infusion is discontinued. When heparin infusion is interrupted: - For less than or equal to 90 minutes: ?~ Restart heparin infusion at the most recent dose and draw Anti-Xa level in 6 hours from restart. ?~ No bolus required. Adjust per protocol. - For greater than 90 minutes or if heparin interruption for unknown time period: ?~ Draw stat Anti-Xa level (Do not adjust infusion dose based on this Anti-Xa result). ~ Restart heparin infusion at most recent dose (most recent dose may be anytime during the patient's current admission). ~ Notify licensed practioner regarding interruption and discuss if IV bolus is necessary; licensed practioner to consider ordering IV bolus if greater than 6 hours heparin interruption. ?? ~ Draw Anti-Xa in 6 hours and proceed per protocol. - Document all pertinent communications with providers in the patient's record. - Adjust infusion based on Anti-Xa result per Standard protocol table: Concentration = 50 units/mL, Indication for Anticoagulation: VTE Treatment Rate/Dose Verify 11/13/2024 11:00 AM EDT 17 Units/kg/hr 31.314 mL/hr heparin (porcine) IV infusion 25,000 units in 500 mL 0.45% NaCl (premix) 25.56 mL/hr (15 Units/kg/hr ? 85.2 kg), Intravenous, Continuous, Starting on 11/15/24 at 1900, HEPARIN THROMBOEMBOLIC/STAND IGNACIA/FULL DOSE PROTOCOL: Initial Infusion Dose: See dose above, MAX initial dose 1,800 units/hr (120 kg and above) Dose adjustment instructions: - Obtain a Heparin Anti-factor Xa (Anti-Xa) level 6 hours after start of infusion and 6 hours after every dose change. - Once patient is within therapeutic range for two consecutive Anti-Xa measurements, then obtain Anti-Xa daily with AM labs until infusion is discontinued. When heparin infusion is interrupted: - For less than or equal to 90 minutes: ?~ Restart heparin infusion at the most recent dose and draw Anti-Xa level in 6 hours from restart. ?~ No bolus required. Adjust per protocol. - For greater than 90 minutes or if heparin interruption for unknown time period: ?~ Draw stat Anti-Xa level (Do not adjust infusion dose based on this Anti-Xa result). ~ Restart heparin infusion at most recent dose (most recent dose may be anytime during the patient's current admission). ~ Notify licensed practioner regarding interruption and discuss if IV bolus is necessary; licensed practioner to consider ordering IV bolus if greater than 6 hours heparin interruption. ?? ~ Draw Anti-Xa in 6 hours and proceed per protocol. - Document all pertinent communications with providers in the patient's record. - Adjust infusion based on Anti-Xa result per Standard protocol table: Concentration = 50 units/mL, Indication for Anticoagulation: VTE Treatment Rate Change - High Risk Medication 11/16/2024 4:54 AM EDT 12 Units/kg/hr 20.448 mL/hr heparin (porcine) IV infusion 25,000 units in 500 mL 0.45% NaCl (premix) 25.56 mL/hr (15 Units/kg/hr ? 85.2 kg), Intravenous, Continuous, Starting on Fri11/16/24 at 2100, HEPARIN THROMBOEMBOLIC/STAND IGNACIA/FULL DOSE PROTOCOL: Initial Infusion Dose: See dose above, MAX initial dose 1,800 units/hr (120 kg and above) Dose adjustment instructions: - Obtain a Heparin Anti-factor Xa (Anti-Xa) level 6 hours after start of infusion and 6 hours after every dose change. - Once patient is within therapeutic range for two consecutive Anti-Xa measurements, then obtain Anti-Xa daily with AM labs until infusion is discontinued. When heparin infusion is interrupted: - For less than or equal to 90 minutes: ?~ Restart heparin infusion at the most recent dose and draw Anti-Xa level in 6 hours from restart. ?~ No bolus required. Adjust per protocol. - For greater than 90 minutes or if heparin interruption for unknown time period: ?~ Draw stat Anti-Xa level (Do not adjust infusion dose based on this Anti-Xa result). ~ Restart heparin infusion at most recent dose (most recent dose may be anytime during the patient's current admission). ~ Notify licensed practioner regarding interruption and discuss if IV bolus is necessary; licensed practioner to consider ordering IV bolus if greater than 6 hours heparin interruption. ?? ~ Draw Anti-Xa in 6 hours and proceed per protocol. - Document all pertinent communications with providers in the patient's record. - Adjust infusion based on Anti-Xa result per Standard protocol table: Concentration = 50 units/mL, Indication for Anticoagulation: VTE Treatment Rate Change - High Risk Medication 11/17/2024 12:50 PM EDT 14 Units/kg/hr 23.856 mL/hr hydroCHLOROthiazide (HYDRODIURIL) tablet 25 mg 25 mg, Oral, Daily, First dose on Fri11/12/24 at 1130, Hold for SBP less than 100 mmHg. Notify provider if a dose is held. Given 11/12/2024 11:33 AM EDT 25 mg HYDROmorphone (DILAUDID) 2 mg/mL injection 1 mg 1 mg, Intravenous, Every 3 hours PRN, CPOT > 2, Starting on Fri11/10/24 at 0755, For 7 days Given 11/10/2024 8:17 AM EDT 1 mg HYDROmorphone (DILAUDID) 2 mg/mL injection 1 mg 1 mg, Intravenous, Every 2 hours PRN, CPOT > 2, Starting on Fri11/10/24 at 0914, For 2 days 9 hours Given 11/12/2024 11:24 AM EDT 1 mg HYDROmorphone (DILAUDID) 2 mg/mL injection 1 mg 1 mg, Intravenous, Once, On Fri11/10/24 at 0916, For 1 dose Given 11/10/2024 9:20 AM EDT 1 mg insulin lispro (HumaLOG/ADMELOG) 100 units/mL injection 1-6 Units 1-6 Units, Subcutaneous, 3 times daily with meals, First dose on Fri11/13/24 at 1700, DO NOT HOLD IF NPO Notify provider if Blood Glucose LESS than 70 For BG 141-180 administer 1 unit For BG 181-220 administer 2 units For BG 221-260 administer 3 units For BG 261-300 administer 4 units For BG 301-340 administer 5 units For BG MORE than 340, administer 6 units AND notify provider Given 11/15/2024 12:33 PM EDT 1 Units Abdominal Tissue insulin lispro (HumaLOG/ADMELOG) 100 units/mL injection 3-11 Units 3-11 Units, Subcutaneous, Every 4 hours scheduled, First dose on Fri11/10/24 at 1600, These doses are to be administered when Tube Feed/TPN is infusing. HOLD and call provider if Tube Feed/TPN is interrupted for greater than 2 hours. Notify provider if Blood Glucose LESS than 70 For BG 111-140 administer 3 units For BG 141-170 administer 4 units For BG 171-200 administer 5 units For BG 201-230 administer 6 units For BG 231-260 administer 7 units For BG 261-290 administer 8 units For BG 291-320 administer 9 units For BG 321-350 administer 10 units For BG MORE than 350, administer 11 units AND notify provider Given 11/12/2024 8:01 AM EDT 5 Units Abdominal Tissue lactulose (ENULOSE) 10 gm/15 mL solution 20 g 20 g (30 mL), Oral, Every 4 hours PRN, constipation, if no bowel movment by day 3, Starting on Fri11/10/24 at 0749, Administer until bowel movement lansoprazole (PREVACID SOLUTAB) disintegrating tablet 30 mg 30 mg, OG Tube, Daily, First dose on Fri11/11/24 at 1030, Do not crush. Place tablet in an enteral syringe and draw up 10 mL of water. Shake gently to allow for quick dispersal. Administer mixture orally or through feeding tube. Refill syringe with 5 mL water, shake gently, and administer any remaining contents. Given 11/12/2024 8:01 AM EDT 30 mg levothyroxine (SYNTHROID, LEVOTHROID) tablet 137 mcg 137 mcg, Feeding Tube, Daily, First dose on Fri11/11/24 at 0800, Administer in the morning on an empty stomach, at least 30 minutes before food. Hold tube feedings 1 hour before and at least 1 hour after oral levothyroxine administration Tablets may be crushed and mixed in 5 to 10 mL of water. Given 11/12/2024 5:46 AM EDT 137 mcg levothyroxine (SYNTHROID, LEVOTHROID) tablet 137 mcg 137 mcg, Oral, Daily, First dose (after last modification) on Fri11/13/24 at 0600, Administer in the morning on an empty stomach, at least 30 minutes before food. Hold tube feedings 1 hour before and at least 1 hour after oral levothyroxine administration Tablets may be crushed and mixed in 5 to 10 mL of water. Given 11/18/2024 6:35 AM EDT 137 mcg magnesium sulfate IVPB 1 g in 100 mL D5W (premix) 1 g, Intravenous, Administer over 30 Minutes, Once, On Fri11/13/24 at 0100, For 1 dose New Bag 11/13/2024 6:01 AM EDT 1 g 200 mL/hr magnesium sulfate IVPB 2 g in 50 mL SW PREMIX 2 g, Intravenous, Administer over 60 Minutes, Once, On Fri11/10/24 at 1700, For 1 dose New Bag 11/10/2024 5:11 PM EDT 2 g 50 mL/hr multivitamin tablet 1 tablet 1 tablet, Oral, Daily, First dose on Fri11/13/24 at 0900 Given 11/18/2024 8:23 AM EDT 1 tablet multivitamin with minerals (CEROVITE) liquid 15 mL 15 mL, Feeding Tube, Daily, First dose on Fri11/10/24 at 1600 Given 11/12/2024 8:01 AM EDT 15 mL naloxone (NARCAN) 0.4 mg/mL injection 0.4 mg 0.4 mg, Intravenous, Every 5 min PRN, opioid reversal, respiratory depression, Starting on Fri11/10/24 at 0749, Notify provider if administered norepinephrine (LEVOPHED) IV infusion 8 mg in 250 mL NS (premix) 2-60 mcg/min (3.75-112.5 mL/hr, rounded to 3.8-112.5 mL/hr), Intravenous, Titrated, Starting on Fri11/10/24 at 0633, Starting Dose: 2 mcg/min or as specified in dose field. Titrate by: 2 mcg/min every 1 minutes. Titration Goal: MAP greater than or equal to 65. Maximum Dose: As specified in dose field. Rate/Dose Change 11/10/2024 1:45 PM EDT 2 mcg/min 3.8 mL/hr nystatin (MYCOSTATIN) cream Topical, 2 times daily, First dose on Fri11/17/24 at 1430, Site of application: Breast folds Given 11/18/2024 8:29 AM EDT perflutren lipid microsphere (DEFINITY) 1.3 mL in sodium chloride (NS) 0.9 % 10 mL 0.5-8 mL, Intravenous, Once in imaging, other, Starting on Fri11/10/24 at 0938, For 1 dose, Document total dose administered per policy potassium chloride (KLOR-CON M20) CR tablet 40 mEq 40 mEq, Oral, Once, On 11/15/24 at 1130, For 1 dose, Swallow tablets whole; do not crush, chew, or suck on tablet. Take with meals and a full glass of water or other liquid to minimize the risk of GI irritation. Swallow tablets whole; do not crush, chew, or suck on tablet. Take with meals and a full glass of water or other liquid to minimize the risk of GI irritation. Given 11/15/2024 12:32 PM EDT 40 mEq potassium chloride (KLOR-CON) packet 20 mEq 20 mEq, Oral, Every 2 hours, First dose on [place] 11/11/24 at 1430, For 2 doses, Dissolve contents of 1 packet in 4 ounces of water. Given 11/11/2024 4:42 PM EDT 20 mEq potassium chloride IVPB 20 mEq in 100 mL SW premix (central line) 20 mEq, Intravenous, at 100 mL/hr, Once, On [place] 11/11/24 at 1430, For 1 dose, FOR CENTRAL LINE ADMINISTRATION ONLY Cardiac monitoring required when administering more than 10 mEq/hr New Bag 11/11/2024 3:18 PM EDT 20 mEq 100 mL/hr propofol (diPRIvan) 1000 MG/100ML injection 5-50 mcg/kg/min ? 90.5 kg (2.715-27.15 mL/hr, rounded to 2.7-27.2 mL/hr), Intravenous, Titrated, Starting on Fri11/10/24 at 0633, Starting Dose: 5 mcg/kg/min or as specified in dose field. If patient less than 71 kg: titrate by 5 mcg/kg/min every 5 minutes. If patient 71 kg or greater: titrate by 10 mcg/kg/min every 5 minutes. Titration Goal: RASS between -2 and 0 Maximum Dose: 50 mcg/kg/min or as specified in dose field. Do not use if contamination is suspected. Do not administer through the same IV catheter with blood or plasma. *Shake well before using* New Bag 11/10/2024 6:34 AM EDT 50 mcg/kg/min 27.2 mL/hr protein supplement feeding tube flush (PROSOURCE TF) 3 oz 3 oz, Feeding Tube, 2 times daily, First dose (after last modification) on Fri11/10/24 at 2100, 1.5 Ounce = 1 packet Given 11/12/2024 8:02 AM EDT 3 oz senna-docusate (SENNA-S) 8.6-50 MG tablet 2 tablet 2 tablet, Oral, Nightly, First dose on Fri11/10/24 at 2100, Hold for diarrhea Given 11/13/2024 9:39 PM EDT 2 tablets thiamine mononitrate (VITAMIN B-1) tablet 200 mg 200 mg, Oral, Daily, First dose on Fri11/14/24 at 1400 Given 11/18/2024 8:22 AM EDT 200 mg vancomycin (VANCOCIN) IVPB 2000 mg in 500 mL NS (premix) 2,000 mg, Intravenous, Administer over 120 Minutes, Once, On Fri11/10/24 at 0859, For 1 dose, All antimicrobials used at [facility] require an indication. Please complete the following documentation. Bacterial Infection Suspected, Type of Therapy: New Therapy, Indication: Pneumonia New Bag 11/10/2024 9:29 AM EDT 2,000 mg 270 mL/hr VASOpressin (VASOSTRICT) 20 units in sodium chloride (NS) 0.9 % 50 mL IV infusion-WTD Shock 0.03 Units/min (4.5 mL/hr), Intravenous, Continuous, Starting on Fri11/10/24 at 0829, Do Not Titrate. Need new order for each dose change. Rate/Dose Verify 11/10/2024 1:00 PM EDT 0.03 Units/min 4.5 mL/hr documented in this encounter Active and Recently Administered Medications Times are shown in EDT. Scheduled Medication Order 11/16/2024 11/17/2024 11/18/2024 apixaban (ELIQUIS) tablet 10 mg 10 mg, Oral, Every 12 hours scheduled, First dose (after last modification) on Fri11/17/24 at 2100, For 4 days, Tablets may be crushed and suspended in 60 mL of water, D5W, or apple juice or mixed with applesauce; administer immediately. For delivery through a nasogastric tube, crushed tablets may be suspended in 60 mL of water or D5W followed by immediate delivery., Indication for Anticoagulation: DVT - Treatment 2145 (Given - Provider: Alexa Garcia RN) 0828 (Given - Provider: Adela De La Torre RN) apixaban (ELIQUIS) tablet 5 mg 5 mg, Oral, Every 12 hours scheduled, First dose (after last modification) on Fri11/22/24 at 0900, Tablets may be crushed and suspended in 60 mL of water, D5W, or apple juice or mixed with applesauce; administer immediately. For delivery through a nasogastric tube, crushed tablets may be suspended in 60 mL of water or D5W followed by immediate delivery., Indication for Anticoagulation: DVT - Treatment aspirin chewable tablet 81 mg 81 mg, Oral, Daily, First dose on Fri11/12/24 at 0900 0737 (Given - Provider: Remi Rangel RN) 0943 (Given - Provider: Adela De La Torre RN) 0822 (Given - Provider: Adela De La Torre RN) atorvastatin (LIPITOR) tablet 40 mg 40 mg, Oral, Daily, First dose on Fri11/12/24 at 0900 0738 (Given - Provider: Remi Rangel RN) 0943 (Given - Provider: Adela De La Torre RN) 0823 (Given - Provider: Adela De La Torre RN) carvedilol (COREG) tablet 6.25 mg 6.25 mg, Oral, 2 times daily with meals, First dose on Fri11/12/24 at 1700, Administer with food to minimize the risk of orthostatic hypotension. Hold for HR less than 45 bpm or SBP less than 90 mmHg or bronchospasm develops. Notify provider if a dose is held. 0740 (Given - Provider: Remi Rangel RN)1930 (Given - Provider: Remi Rangel RN) 0943 (Given - Provider: Adela De La Torre RN)1727 (Given - Provider: Adela De La Torre RN) 0823 (Given - Provider: Adela De La Torre RN) cefUROXime (CEFTIN) tablet 500 mg 500 mg, Oral, Every 12 hours scheduled, First dose on Fri11/14/24 at 1400, Type of Therapy: Modification of Therapy, Indication: Pneumonia 0737 (Given - Provider: Remi Rangel RN)0 (Given - Provider: Alexa Garcia, NÉSTOR) 0943 (Given - Provider: Adela De La Torre RN)2146 (Given - Provider: Alexa Garcia RN) 0823 (Given - Provider: Adela De La Torre RN) chlorhexidine gluconate 2 % wipes - central line CHG application Topical, Daily, First dose on Fri11/10/24 at 0900, Each pack = 6 wipes. Dose = 1 each. 1600 (Due - Provider: Margi Gomez RN) 1728 (Not Given - Provider: Adela De La Torre RN - Reason: Other - Comment required - Comment: no central line or tate cath) empagliflozin (JARDIANCE) tablet 10 mg 10 mg, Oral, Daily, First dose on Fri11/13/24 at 1230 0900 (Dose Auto Held - Provider: Gayatri Hopkins APRN) 0900 (Hold - Provider: Adela De La Torre RN - Reason: See Provider Order) 0820 (Provider Unheld - Provider: Srinivasan Mattson MD)0826 (Given - Provider: Adela De La Torre RN) famotidine (PEPCID) tablet 20 mg 20 mg, Oral, Daily, First dose on Fri11/12/24 at 1100 0739 (Given - Provider: Remi Rangel RN) 0943 (Given - Provider: Adela De La Torre RN) 0824 (Given - Provider: Adela De La Torre RN) insulin lispro (HumaLOG/ADMELOG) 100 units/mL injection 1-6 Units 1-6 Units, Subcutaneous, 3 times daily with meals, First dose on 11/13/24 at 1700, DO NOT HOLD IF NPO Notify provider if Blood Glucose LESS than 70 For BG 141-180 administer 1 unit For BG 181-220 administer 2 units For BG 221-260 administer 3 units For BG 261-300 administer 4 units For BG 301-340 administer 5 units For BG MORE than 340, administer 6 units AND notify provider 0741 (Not Given - Provider: Remi Rangel RN - Reason: Dose held per order parameters)1200 (Due)1700 (Due) 0830 (Not Given - Provider: Adela De La Torre RN - Reason: Dose held per order parameters)1354 (Not Given - Provider: Adela De La Torre RN - Reason: Dose held per order parameters)1736 (Not Given - Provider: Adela De La Torre RN - Reason: Dose held per order parameters) 0800 (Not Given - Provider: Adela De La Torre RN - Reason: Patient/family refused) levothyroxine (SYNTHROID, LEVOTHROID) tablet 137 mcg 137 mcg, Oral, Daily, First dose (after last modification) on 11/13/24 at 0600, Administer in the morning on an empty stomach, at least 30 minutes before food. Hold tube feedings 1 hour before and at least 1 hour after oral levothyroxine administration Tablets may be crushed and mixed in 5 to 10 mL of water. 0527 (Given - Provider: Gisele Sawyer RN) 0621 (Given - Provider: Alexa Garcia RN) 0635 (Given - Provider: Alexa Garcia RN) multivitamin tablet 1 tablet 1 tablet, Oral, Daily, First dose on 11/13/24 at 0900 0739 (Given - Provider: Remi Rangel RN) 0943 (Given - Provider: Adela De La Torre RN) 0823 (Given - Provider: Adela De La Torre RN) nystatin (MYCOSTATIN) cream Topical, 2 times daily, First dose on 11/17/24 at 1430, Site of application: Breast folds 1430 (Due)2148 (Given - Provider: Alexa Garcia RN) 0829 (Given - Provider: Adela De La Torre RN) senna-docusate (SENNA-S) 8.6-50 MG tablet 2 tablet 2 tablet, Oral, Nightly, First dose on 11/10/24 at 2100, Hold for diarrhea 2108 (Not Given - Provider: Alexa Jose, RN - Reason: Patient/family refused) 2145 (Not Given - Provider: Alexa Garcia RN - Reason: Patient/family refused) thiamine mononitrate (VITAMIN B-1) tablet 200 mg 200 mg, Oral, Daily, First dose on Fri11/14/24 at 1400 0740 (Given - Provider: Remi Rangel, NÉSTOR) 0944 (Given - Provider: Adela De La Torre, NÉSTOR) 0822 (Given - Provider: Adela De La Torre, NÉSTOR) Continuous Medication Order 11/16/2024 11/17/2024 11/18/2024 sodium chloride 0.9% (NS) infusion () 100 mL/hr, Intravenous, Continuous, Starting on Fri11/16/24 at 0900, For 4 hours, For prevention of GILBERTO due to contrast - pre-procedure 0700 (Not Given - Provider: Remi Rangel RN - Reason: Change in order - Comment: new order for 9am, 7am bag hung at 9.)0832 (New Bag - Provider: Gisele Sawyer RN) sodium chloride 0.9% (NS) infusion () 100 mL/hr, Intravenous, Continuous, Starting on Fri11/16/24 at 1730, For 3 hours 1732 (New Bag - Provider: Petrona Naidu RN) heparin (porcine) IV infusion 25,000 units in 500 mL 0.45% NaCl (premix) (CANCELED) 25.56 mL/hr (15 Units/kg/hr ? 85.2 kg), Intravenous, Continuous, Starting on Fri11/15/24 at 1900, HEPARIN THROMBOEMBOLIC/STANDARD/FULL DOSE PROTOCOL: Initial Infusion Dose: See dose above, MAX initial dose 1,800 units/hr (120 kg and above) Dose adjustment instructions: - Obtain a Heparin Anti-factor Xa (Anti-Xa) level 6 hours after start of infusion and 6 hours after every dose change. - Once patient is within therapeutic range for two consecutive Anti-Xa measurements, then obtain Anti-Xa daily with AM labs until infusion is discontinued. When heparin infusion is interrupted: - For less than or equal to 90 minutes: ?~ Restart heparin infusion at the most recent dose and draw Anti-Xa level in 6 hours from restart. ?~ No bolus required. Adjust per protocol. - For greater than 90 minutes or if heparin interruption for unknown time period: ?~ Draw stat Anti-Xa level (Do not adjust infusion dose based on this Anti-Xa result). ~ Restart heparin infusion at most recent dose (most recent dose may be anytime during the patient's current admission). ~ Notify licensed practioner regarding interruption and discuss if IV bolus is necessary; licensed practioner to consider ordering IV bolus if greater than 6 hours heparin interruption. ?? ~ Draw Anti-Xa in 6 hours and proceed per protocol. - Document all pertinent communications with providers in the patient's record. - Adjust infusion based on Anti-Xa result per Standard protocol table: Concentration = 50 units/mL, Indication for Anticoagulation: VTE Treatment 0454 (Rate Change - High Risk Medication - Provider: Gisele Sawyer RN - Comment: 12 units)0705 (Handoff - Provider: Remi Rangel RN - Comment: 12u) heparin (porcine) IV infusion 25,000 units in 500 mL 0.45% NaCl (premix) (CANCELED) 25.56 mL/hr (15 Units/kg/hr ? 85.2 kg), Intravenous, Continuous, Starting on Fri11/16/24 at 2100, HEPARIN THROMBOEMBOLIC/STANDARD/FULL DOSE PROTOCOL: Initial Infusion Dose: See dose above, MAX initial dose 1,800 units/hr (120 kg and above) Dose adjustment instructions: - Obtain a Heparin Anti-factor Xa (Anti-Xa) level 6 hours after start of infusion and 6 hours after every dose change. - Once patient is within therapeutic range for two consecutive Anti-Xa measurements, then obtain Anti-Xa daily with AM labs until infusion is discontinued. When heparin infusion is interrupted: - For less than or equal to 90 minutes: ?~ Restart heparin infusion at the most recent dose and draw Anti-Xa level in 6 hours from restart. ?~ No bolus required. Adjust per protocol. - For greater than 90 minutes or if heparin interruption for unknown time period: ?~ Draw stat Anti-Xa level (Do not adjust infusion dose based on this Anti-Xa result). ~ Restart heparin infusion at most recent dose (most recent dose may be anytime during the patient's current admission). ~ Notify licensed practioner regarding interruption and discuss if IV bolus is necessary; licensed practioner to consider ordering IV bolus if greater than 6 hours heparin interruption. ?? ~ Draw Anti-Xa in 6 hours and proceed per protocol. - Document all pertinent communications with providers in the patient's record. 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, 12 Units) 0141 (Rate/Dose Verify - Provider: Alexa Garcia RN)0724 (Handoff - Provider: Adela De La Torre, NÉSTOR)1250 (Rate Change - High Risk Medication - Provider: Adela De La Torre RN - Comment: [phone] (Stopped - Provider: Adela De La Torre RN) PRN Medication Order 11/16/2024 11/17/2024 11/18/2024 acetaminophen (TYLENOL) tablet 650 mg 650 mg, Oral, Every 6 hours PRN, mild pain 1-3, Starting on Fri11/10/24 at 1821 2110 (Given - Provider: Alexa Garcia RN) bisacodyl (DULCOLAX) suppository 10 mg 10 mg, Rectal, Daily PRN, constipation, if no bowel movement by day 2, Starting on Fri11/10/24 at 0749 dextrose 50 % solution 12.5 g(Linked Group 1) 12.5 g, Intravenous, Every 15 min PRN, low blood sugar, between 50 and 69 mg/dL, Starting on 11/13/24 at 1631, For patient with IV access who is NPO or unable to swallow. See Hypoglycemia Management guideline. dextrose 50 % solution 25 g(Linked Group 1) 25 g, Intravenous, Every 15 min PRN, low blood sugar, less than 50 mg/dL, Starting on 11/13/24 at 1631, For patient with IV access who is NPO or unable to swallow. See Hypoglycemia Management guideline. fentaNYL 100 MCG/2ML injection (CANCELED) As needed, Starting on Tu11/16/24 at 1630, Intra-Procedure (Cath) 1630 (Given - Provider: Danielle Eid RN) glucagon (GLUCAGEN) injection 1 mg(Linked Group 1) 1 mg, Intramuscular, Daily PRN, low blood sugar, for Blood Glucose LESS than 70 mg/dL and NPO and no IV access, Starting on 11/13/24 at 1631, Glucagon may be repeated x 1 (for a total of 2 doses per hypoglycemic event) if patient remains hypoglycemic after first dose. Do not use with hepatic disease or alcohol intoxication. See Hypoglycemia Management guideline. Reconstitute vial with 1 mL sterile water for injection. glucose (GLUTOSE 15) 40 % oral gel 37.5 g(Linked Group 1) 37.5 g (1 Tube), Oral, Every 15 min PRN, low blood sugar, between 50 and 69 mg/dL, Starting on 11/13/24 at 1631, Juice or soda is preferred for alert patients (4 oz juice or 6 oz soda). Use glucose gel for patients with fluid restriction. See Hypoglycemia Management guideline. Each 37.5 gram tube of glucose 40 % = 15 grams of glucose. glucose (GLUTOSE 15) 40 % oral gel 75 g(Linked Group 1) 75 g (2 Tube), Oral, Every 15 min PRN, low blood sugar, less than 50 mg/dL, Starting on 11/13/24 at 1631, Juice or soda is preferred for alert patients (8 oz juice or 12 oz soda). Use glucose gel for patients with fluid restriction. See Hypoglycemia Management guideline. Each 37.5 gram tube of glucose 40 % = 15 grams of glucose. heparin (porcine) 1000 unit/mL injection (CANCELED) As needed, Starting on Fri11/16/24 at 1656, Intra-Procedure (Cath) 1656 (Given - Provider: Carlos Herman MD) iohexol (OMNIPAQUE) 350 mg/mL injection (CANCELED) As needed, Starting on Fri11/16/24 at 1710, Intra-Procedure (Cath) 1710 (Given - Provider: Carlos Herman MD) lactulose (ENULOSE) 10 gm/15 mL solution 20 g 20 g (30 mL), Oral, Every 4 hours PRN, constipation, if no bowel movment by day 3, Starting on Fri11/10/24 at 0749, Administer until bowel movement lidocaine (XYLOCAINE) 2 % injection (CANCELED) As needed, Starting on Fri11/16/24 at 1636, Intra-Procedure (Cath) 1636 (Given - Provider: Carlos Herman MD)1642 (Given - Provider: Carlos Herman MD)1654 (Given - Provider: Carlos Herman MD) midazolam (VERSED) 1 mg/mL injection (CANCELED) As needed, Starting on Fri11/16/24 at 1630, Intra-Procedure (Cath) 1630 (Given - Provider: Danielle Eid, RN) naloxone (NARCAN) 0.4 mg/mL injection 0.4 mg 0.4 mg, Intravenous, Every 5 min PRN, opioid reversal, respiratory depression, Starting on Fri11/10/24 at 0749, Notify provider if administered nitroGLYCERCIN 100 mcg/mL injection (CANCELED) As needed, Starting on Fri11/16/24 at 1701, Intra-Procedure (Cath) 170 (Given - Provider: Carlos Herman MD) perflutren lipid microsphere (DEFINITY) 1.3 mL in sodium chloride (NS) 0.9 % 10 mL 0.5-8 mL, Intravenous, Once in imaging, other, Starting on Fri11/10/24 at 0938, For 1 dose, Document total dose administered per policy verapamil (ISOPTIN) injection (CANCELED) As needed, Starting on Fri11/16/24 at 1656, Intra-Procedure (Cath) 1656 (Given - Provider: Carlos Herman MD) Linked Groups Order Group 1: glucose (GLUTOSE 15) 40 % oral gel 37.5 gJump to med 37.5 g (1 Tube), Oral, Every 15 min PRN, low blood sugar, between 50 and 69 mg/dL, Starting on 11/13/24 at 1631, Juice or soda is preferred for alert patients (4 oz juice or 6 oz soda). Use glucose gel for patients with fluid restriction. See Hypoglycemia Management guideline. Each 37.5 gram tube of glucose 40 % = 15 grams of glucose. Or glucose (GLUTOSE 15) 40 % oral gel 75 gJump to med 75 g (2 Tube), Oral, Every 15 min PRN, low blood sugar, less than 50 mg/dL, Starting on 11/13/24 at 1631, Juice or soda is preferred for alert patients (8 oz juice or 12 oz soda). Use glucose gel for patients with fluid restriction. See Hypoglycemia Management guideline. Each 37.5 gram tube of glucose 40 % = 15 grams of glucose. Or dextrose 50 % solution 12.5 gJump to med 12.5 g, Intravenous, Every 15 min PRN, low blood sugar, between 50 and 69 mg/dL, Starting on 11/13/24 at 1631, For patient with IV access who is NPO or unable to swallow. See Hypoglycemia Management guideline. Or dextrose 50 % solution 25 gJump to med 25 g, Intravenous, Every 15 min PRN, low blood sugar, less than 50 mg/dL, Starting on 11/13/24 at 1631, For patient with IV access who is NPO or unable to swallow. See Hypoglycemia Management guideline. Or glucagon (GLUCAGEN) injection 1 mgJump to med 1 mg, Intramuscular, Daily PRN, low blood sugar, for Blood Glucose LESS than 70 mg/dL and NPO and no IV access, Starting on 11/13/24 at 1631, Glucagon may be repeated x 1 (for a total of 2 doses per hypoglycemic event) if patient remains hypoglycemic after first dose. Do not use with hepatic disease or alcohol intoxication. See Hypoglycemia Management guideline. Reconstitute vial with 1 mL sterile water for injection. documented in this encounter Additional Health Concerns Infection Onset Date Last Indicated Resolved Time R/O Respiratory Disease 11/10/2024 11/10/202410/30 12:55 PM EDT documented as of this encounter
== END 2024-11-23 10:13 | disposition home or self-care (01) ==
LOC: HO.HKA 09:50
PROVIDERS: PCP Internal Medicine; Visit Provider Internal Medicine Hypertension Specialist
DX: E11.40 Type 2 diabetes mellitus with diabetic neuropathy, unspecified (principal); R80.1 Persistent proteinuria, unspecified; N18.9 Chronic kidney disease, unspecified
CPT/HCPCS: 99214

== ENCOUNTER → 2024-11-23 09:49 | Outpatient (BNVA) | payer OTHER, SELFPAY | PROVIDERS: PCP Internal Medicine; Visit Provider Internal Medicine Hypertension Specialist | DX: E11.22 Type 2 diabetes mellitus with diabetic chronic kidney disease (principal); N18.9 Chronic kidney disease, unspecified; E11.40 Type 2 diabetes mellitus with diabetic neuropathy, unspecified; R80.1 Persistent proteinuria, unspecified | CPT/HCPCS: 99212 ==

== ENCOUNTER 2024-11-23 10:18 | Outpatient (REF) | payer OTHER, SELFPAY ==
[2024-11-23 13:35] LABS: Appearance Urine Clear; Color Urine Yellow; Glucose Urine UA 500 mg/dL (Negative); Leukocyte Esterase Urine Negative (Negative); Nitrite Urine Negative (Negative); PH 5.5 (5.0-9.0); Specific Gravity - Urine 1.015 (1.005-1.025); UMIC TRIGGER UA YES; Urine Blood Negative (Negative); Urine Ketones Negative (Negative); Urine Protein 300 (3+) mg/dL (Neg-Trace)
[2024-11-23 13:44] LABS: Bacteria Urine Trace (None Seen); Hyaline Casts Urine 0-2 /LPF (0-2); RBC Urine 0-2 /HPF (0-2)
[2024-11-23 13:46] LABS: Anion Gap 12 (12-20); Blood Urea Nitrogen 34 mg/dL (9-16); Calcium 9.7 mg/dL (8.4-10.2); Carbon Dioxide 22 mmol/L (22-29); Chloride 107 mmol/L (96-108); Estimated Glomerular Filt Rate 41; Glucose Random 172 mg/dL (60-115); Potassium 4.4 mmol/L (3.3-5.1); Sodium 137 mmol/L (135-145)
[2024-11-24 17:33] LABS: Complement C3 168 mg/dL (83-193)
[2024-12-06 16:49] LABS: Phospholipase A2 IgG ELISA 8 RU/mL; Phospholipase A2 IgG IFA NEGATIVE (NEGATIVE)
== END 2024-11-23 10:19 | disposition home or self-care (01) ==
LOC: HO.10HDL 10:18
PROVIDERS: Visit Provider Internal Medicine Hypertension Specialist
DX: N18.9 Chronic kidney disease, unspecified (principal)
CPT/HCPCS: 36415; 80048; 81001; 83520; 86160; 86255

== ENCOUNTER 2024-11-26 14:02 | Outpatient (AMB) | payer OTHER, SELFPAY ==
[2024-11-26 14:04] VITALS: BP 120/80; PULSE 86; RESP 16; TEMP 36.4; O2SAT 99; BMI 35.1
--- NOTE | 2024-11-26 14:04 | MHC.PC.OV ---
Vital Signs 11/26/24 14:04 Height 5 ft 1 in Weight 186 lb BMI 35.1 BP 120/80 Respiration 16 Pulse 86 Pulse Source Pulse Oximeter Temp 97.5 F Temp Source Temporal Artery Scan Pulse Oximetry (%) 99 Oxygen Delivery Method Room Air Intake Visit Reasons: Routine Child Adolescent Care Required: No Accompanied by: Mother Allergies shellfish derived [SHELLFISH DERIVED] Allergy (Severe, Verified 11/26/24 14:04) ANAPHALAXIS Iodinated Contrast Media [IODINATED CONTRAST MEDIA - IV DYE] Allergy (Unknown, Verified 11/26/24 14:04) CAN NOT HAVE DUE TO SHELLFISH ALLERGY Tobacco use date assessed: 11/26/24 Dental Screening Dental Screen Date: 11/26/24 Did you have a dental visit in the last 12 months?: No Did you have a dental problem in the last 6 months where you did not have access to dental care?: No Was dental information given to patient?: No (pt has dentures) HPI HPI Comments History of Present Illness Details Pt is a 54 y/o female with a medical history of CAD, CHF, CKD stage 3a, DMII, HTN, RLS, GERD, hypercholesterolemia, obesity presenting for follow Patient was hospitalized at [facility] in Sep 2024 for ACS. She was intubated and required CCU. She has follow up with [facility] cardiology-December 28. She denies any interval episodes of chest pain. She is getting VNA at home. She is starting cardiac rehab. DM: She has changed her diet signficantly. Went from 230 lbs to 186. She remains on trulcity 1.5mg, glipizide, metformin, jardiance. Her last A1C was 6.2%. ROS CONSTITUTIONAL: Denies weight loss, fever and chills. HEENT: Denies changes in vision and hearing. RESPIRATORY: Denies SOB and cough. CV: Denies palpitations and CP GI: Denies abdominal pain, nausea, vomiting and diarrhea. : Denies dysuria and urinary frequency. MSK: Denies new myalgia and joint pain. SKIN: Denies rash and pruritus. NEUROLOGICAL: Denies headache PSYCHIATRIC: Denies recent changes in mood. PHYSICAL EXAM: GENERAL: Alert and oriented x 3. NAD EYES: EOMI. Anicteric. HENT: Moist mucous membranes. No scleral icterus. No cervical lymphadenopathy. LUNGS: Clear to auscultation bilaterally. CARDIOVASCULAR: Regular rate and rhythm. No murmur. No JVD. ABDOMEN: Soft, non-tender +bs EXTREMITIES: No edema. Non-tender. SKIN: No rashes or lesions. Warm. NEUROLOGIC: No focal neurological deficits. CN II-XII grossly intact PSYCHIATRIC: Cooperative. Appropriate mood and affect [facility] Medical History Type 2 diabetes mellitus with diabetic neuropathy, unspecified Hypothyroidism Vitamin D deficiency HLD (hyperlipidemia) HTN (hypertension) T2DM (type 2 diabetes mellitus) Surgical History History of cholecystectomy Hx of section Family History Father Hypertension Heart disease Mother Breast cancer Family history of thyroid problem Social History Housing: Apartment Alcohol intake: former Patient Tobacco Use Status: Never used Tobacco service: No Current occupational status: unemployed Cognitive needs: Yes (cane) Hearing needs: No Vision needs: Yes (rx contacts) Questionnaire PHQ-9 Over the last 2 weeks, how often have you been bothered by any of the following problems? 1. Little interest or pleasure in doing things: not at all 2. Feeling down, depressed, or hopeless: not at all 3. Trouble falling or staying asleep, or sleeping too much: not at all 4. Feeling tired or having little energy: not at all 5. Poor appetite or overeating: not at all 6. Feeling bad about yourself - or that you are a failure or have let yourself or your family down: not at all 7. Trouble concentrating on things, such as reading the newspaper or watching television: not at all 8. Moving or speaking so slowly that other people could have noticed. Or the opposite - being so fidgety or restless that you have been moving around a lot more than usual: not at all 9. Thoughts that you would be better off or of hurting yourself in some way: not at all Total score: 0 Depression Screening Interpretation: Negative Depression Screening Done: Yes 92524 - PHQ-9 Billing: Yes Source: Developed by Drs. Rajinder De Paz, Devan Jean and colleagues, with an educational doug from [employer]. Thrive Questionnaire Date Thrive assessed: 11/26/24 I am a: Patient What is your living situation today?: I have a steady place to live Within the past 12 months, did the food you bought not last and you didn't have the money to get more?: Never true Within the past 12 months, did you worry whether your food would run out before you got money to buy more?: Never true Do you have trouble paying for medicines?: No Do you have trouble getting transportation to medical appointments?: No Do you have trouble paying your heating and electricity bill?: No Do you have trouble taking care of your child, family member or friend?: No Do you have trouble with day-to-day activities such as bathing, preparing meals, shopping, managing finances, etc.?: No Are you currently unemployed and looking for a job?: No Are you interested in more education?: No Please select the resources that you would like help with: None THRIVE Score: 0 AUDIT C Alcohol Use Questionnaire (AUDIT-C) 1. How often do you have a drink containing alcohol?: Never 3. How often do you have six or more drinks on one occasion?: Never Total Score: 0 NATHANIEL-7 AMB Questionnaire NATHANIEL-7 Date NATHANIEL - 7 assessed: 11/26/24 Feeling nervous, anxious, or on edge: 0 = Not at all Not being able to stop or control worryin = Not at all Worrying too much about different things: 0 = Not at all Trouble relaxin = Not at all Being so restless that it is hard to sit still: 0 = Not at all Becoming easily annoyed or irritable: 0 = Not at all Feeling afraid as if something awful might happen: 0 = Not at all Total NATHANIEL-7 score (0-4 normal; 5-9 mild; 10-14 moderate; 15-21 severe): 0 Source: Developed by Drs. Rajinder De Paz, Devan Jean and colleagues, with an educational doug from [employer]. Physical exam (Primary Care) Vital Signs: Last Vital Signs Temp 97.5 F 11/26/24 14:04 Pulse 86 11/26/24 14:04 Resp 16 11/26/24 14:04 BP 120/80 11/26/24 14:04 Pulse Ox 99 11/26/24 14:04 Oxygen Delivery Method Room Air 11/26/24 14:04 BMI result Body Mass Index 35.1 Tobacco/Smoking Status: Tobacco use Status Tobacco use date assessed 11/26/24 11/26/24 14:05 Patient Tobacco Use Status Never used Tobacco 11/26/24 14:05 PHQ-9: PHQ-9 Score PHQ-9: Total score 0 11/27/24 13:02 Depression Screening Interpretation: Negative Thrive Assessment: Date of Thrive Assessment Date Thrive assessed 11/26/24 11/26/24 14:05 Coding Level of Care Code New Pt Level 4 (38987) Complex EM visit Add On G2211 Diagnoses Type 2 diabetes mellitus with unspecified complications E11.8 Coronary artery disease involving [place] coronary artery of [place] heart, unspecified whether angina present I25.10 Associated angina: unspecified whether angina present Coronary Disease-Associated Artery/Lesion type: [place] artery [place] vs. transplanted heart: [place] heart History of myocardial infarct at age less than 60 years I25.2 Additional Codes PHQ-9 - 89574 - PHQ-9 Billing: Yes ([id number]) Assessment & Plan Assessment & Plan (1) Type 2 diabetes mellitus with unspecified complications: Code(s): E11.8 - Type 2 diabetes mellitus with unspecified complications Category: Medical (2) CAD (coronary artery disease): Code(s): I25.10 - Atherosclerotic heart disease of [place] coronary artery without angina pectoris Category: Medical Qualifiers: Associated angina: unspecified whether angina present Coronary Disease-Associated Artery/Lesion type: [place] artery [place] vs. transplanted heart: [place] heart Qualified Code(s): I25.10 - Atherosclerotic heart disease of [place] coronary artery without angina pectoris (3) History of myocardial infarct at age less than 60 years: Code(s): I25.2 - Old myocardial infarction Category: Medical Plan CAD s/p NE-starting cardiac rehab. No interval chest pain. Follow up with [facility] cardiology booked DM -controlled. continue current medications. Follow up for A1C when due Orders: Orders Hemoglobin A1c 2 Months E03.9 - Hypothyroidism, unspecified, E11.40 - Type 2 diabetes mellitus with diabetic neuropathy, unspecified, E11.8 - Type 2 diabetes mellitus with unspecified complications, I10 - Essential (primary) hypertension TSH reflex Free T4 2 Months E03.9 - Hypothyroidism, unspecified, E11.40 - Type 2 diabetes mellitus with diabetic neuropathy, unspecified, E11.8 - Type 2 diabetes mellitus with unspecified complications, I10 - Essential (primary) hypertension Comprehensive Met. Panel 2 Months E03.9 - Hypothyroidism, unspecified, E11.40 - Type 2 diabetes mellitus with diabetic neuropathy, unspecified, E11.8 - Type 2 diabetes mellitus with unspecified complications, I10 - Essential (primary) hypertension Lipid Panel 2 Months E03.9 - Hypothyroidism, unspecified, E11.40 - Type 2 diabetes mellitus with diabetic neuropathy, unspecified, E11.8 - Type 2 diabetes mellitus with unspecified complications, I10 - Essential (primary) hypertension Complete Blood Count Auto Diff 2 Months E03.9 - Hypothyroidism, unspecified, E11.40 - Type 2 diabetes mellitus with diabetic neuropathy, unspecified, E11.8 - Type 2 diabetes mellitus with unspecified complications, I10 - Essential (primary) hypertension MM screening mammo BI 11/26/24 Z12.31 - Encounter for screening mammogram for malignant neoplasm of breast
== END 2024-11-26 14:39 | disposition home or self-care (01) ==
LOC: HO.HMCHD 14:03
PROVIDERS: PCP Internal Medicine; Visit Provider Internal Medicine
DX: E11.8 Type 2 diabetes mellitus with unspecified complications (principal); I25.10 Atherosclerotic heart disease of native coronary artery without angina pectoris; I25.2 Old myocardial infarction

== ENCOUNTER → 2024-11-26 14:02 | Outpatient (BNVA) | payer OTHER, SELFPAY | PROVIDERS: PCP Internal Medicine; Visit Provider Internal Medicine | DX: E11.8 Type 2 diabetes mellitus with unspecified complications (principal); I25.10 Atherosclerotic heart disease of native coronary artery without angina pectoris; I25.2 Old myocardial infarction; I13.0 Hypertensive heart and chronic kidney disease with heart failure and stage 1 through stage 4 chronic kidney disease, or unspecified chronic kidney disease; E11.22 Type 2 diabetes mellitus with diabetic chronic kidney disease; N18.30 Chronic kidney disease, stage 3 unspecified; I50.9 Heart failure, unspecified | CPT/HCPCS: 96127; 99202 ==

== ENCOUNTER 2025-01-10 16:16 | Outpatient (REF) | payer OTHER, SELFPAY | END 2025-01-10 16:17 | disposition home or self-care (01) | LOC: HO.LAB 16:16 | PROVIDERS: PCP Internal Medicine; Visit Provider Internal Medicine Hypertension Specialist | DX: Z13.89 Encounter for screening for other disorder (principal) ==

== ENCOUNTER 2025-01-11 11:03 | Outpatient (REF) | payer OTHER, SELFPAY ==
--- OUTSIDE RECORDS SUMMARY | 2025-01-11 12:32 | XMS_ITS | Clinical Summary ---
Author Organization [facility] Address [address] [place] [address] Care Team Providers Care Felt Finisher Name Role Phone Unavailable Primary Care Provider Unavailabl e Allergies No known active allergies Medications amLODIPine (NORVASC) 10 MG tablet Take 1 tablet (10 mg total) by mouth 2 times a day. Active Aspirin Low Dose 81 MG EC tablet Take 1 tablet (81 mg total) by mouth daily. Active atorvastatin (LIPITOR) 40 MG tablet Take 1 tablet (40 mg total) by mouth nightly. Active Trulicity 1.5 MG/0.5ML prefilled pen injection Inject 1.5 mg under the skin once a week. Active famotidine (PEPCID) 20 MG tablet Take 1 tablet (20 mg total) by mouth nightly. Active glipiZIDE (GLUCOTROL) 10 MG tablet 1 tablet (10 mg total) by Mouth/Oral Cavity route every 12 hours. 10/22/2024 Active levothyroxine (SYNTHROID, LEVOTHROID) 137 MCG tablet Take 137 mcg by mouth every morning. Active metFORMIN (GLUCOPHAGE-XR) 500 MG 24 hr tablet Take 2 tablets (1,000 mg total) by mouth 2 times a day. Active carvedilol (COREG) 6.25 MG tabletIndicatio ns:Cardiomyopat hy (HCC) Take 2 tablets (12.5 mg total) by mouth 2 times a day. 120 tablet 11/18/2024 Active empagliflozin (JARDIANCE) 10 MG tabletIndicatio ns:Cardiomyopat hy (HCC) Take 1 tablet (10 mg total) by mouth daily. 90 tablet 3 11/18/2024 Active sacubitril-vals larry (ENTRESTO) 24-26 mg per tabletIndicatio ns:Cardiomyopat hy (HCC) Take 1 tablet by mouth 2 (two) times a day. 60 tablet 11/18/2024 Active apixaban (ELIQUIS) 5 MG tabletIndicatio ns:Cardiomyopat hy (HCC) Take 2 tablets (10 mg total) by mouth every 12 (twelve) hours around the clock. 14 tablet 11/18/2024 Active apixaban (ELIQUIS) 5 MG tabletIndicatio ns:Cardiomyopat hy (HCC) Take 1 tablet (5 mg total) by mouth every 12 (twelve) hours around the clock. Do not start before November 22, 2024. 60 tablet 11/22/2024 Active furosemide (LASIX) 20 MG tabletIndicatio ns:Cardiomyopat hy (HCC) Take 2 tablets (40 mg total) by mouth daily. 60 tablet 11/18/2024 Active ferrous sulfate 325 (65 FE) MG EC tabletIndicatio ns:Cardiomyopat hy (HCC) Take 1 tablet (325 mg total) by mouth daily. Take 2 hours before or 4 hours after acid reducers. 30 tablet 11/18/2024 Active Active Problems Problem Noted Date Diagnosed Date Cardiac arrest 11/10/2024 Encounters Date Type Department Care Team Description 11/25/2024 Telephone [facility] Heart & Vascular [facility] - Cardiology Clinic [address] [place], [place] [address]eat [place] [address] [place] [address] Maritza Nunes MA Appointment ([facility] FOLLOW UP) 11/16/2024 4:01 PM EDT - 11/16/2024 5:29 PM EDT Surgery [facility] Heart & Vascular [place] [facility] - Cardiac Catheterization Laboratory [address] [place] [phone] Carlos Herman MD CORONARY ANGIO W/LV+LT/RT CATH 11/10/2024 6:20 AM EDT - 11/18/2024 11:32 AM EDT Hospital Encounter [facility] [address] [place] [address] Satnam Silva MD Amja, MD Hui Killian, MD Miguel Payan, MD Srinivasan Lim, MD Valerie Randle, MD Neil Acute respiratory failure (HCC) (Primary Dx); Cardiac arrest (HCC); Cardiomyopathy (HCC); Shock (HCC); Indwelling catheter present on admission; Left bundle branch block (LBBB) Discharge Disposition: Home or Self Care 11/10/2024 6:15 AM EDT Ancillary Procedure [facility] Radiology [address] [place] [phone] Provider, File Room 11/10/2024 6:10 AM EDT Ancillary Procedure [facility] Radiology [address] [place] [phone] Provider, File Room 11/10/2024 5:58 AM EDT - 11/10/2024 6:19 AM EDT Hospital Encounter [facility] [address] [place] [phone] Forest Henry MD Discharge Disposition: Home or Self Care 11/10/2024 Travel from Last 3 Months Social History Tobacco Use Types Packs/Day Years Used Date Smoking Tobacco: Never Assessed [facility] Utilities Answer Date Recorded In the past 12 months has [employer], [employer], or water [employer] threatened to shut off services in your [...] any time in the past 12 m [facility], were you homeless or living in a half-way (including now)? Patient unable to answer 11/12/2024 Comments Unknown Sex and Gender Information Value Date Recorded Sex Assigned at Female 11/10/2024 6:28 AM EDT Legal Sex Female 6:40 PM EST Gender Identity Female 11/10/2024 6:28 AM EDT Sexual Orientation Choose not to disclose 2024 6:28 AM EDT Last Filed Vital Signs Vital Sign Reading [...] Mass Index 36.03 11/10/2024 3:00 PM EDT Plan of Treatment Health Maintenance Due Date Last Done Comments Hepatitis C Virus Screening 1970 DTaP/Tdap/Td Vaccines (1 - Tdap) 1990 Hepatitis B Vaccines (1 of 3 - 19+ 3-dose series) 09/03 Pap Smear (Ages 21-65) 1992 Mammogram 2011 Colonoscopy 2016 Pneumococcal Vaccines 50+ (1 of 1 - PCV) 2021 Zoster (Shingles) Vaccine (1 of 2) 2021 COVID-19 Vaccine (1 - 2023- season) 2024 Influenza Vaccine 04/01/2025 HIV Screening Completed 11/11/2024 Procedures Procedure Name Priority Date/Time Associated Diagnosis Comments POCT GLUCOSE, FINGERSTICK (CHARGE) Routine 11/18/2024 7:53 AM EDT POCT GLUCOSE, FINGERSTICK (CHARGE) Routine 11/17/2024 8:39 PM EDT POCT GLUCOSE, FINGERSTICK (CHARGE) Routine 11/17/2024 5:29 PM EDT POCT GLUCOSE, FINGERSTICK (CHARGE) Routine 11/17/2024 12:08 PM EDT BASIC METABOLIC PANEL Routine 11/17/2024 10:32 AM EDT HEPARIN ASSAY (ANTI-XA) Routine 11/18/19 8:32 AM EDT COMPLETE BLOOD COUNT, WITH DIFFERENTIAL Routine 11/17/2024 8:32 AM EDT POCT GLUCOSE, FINGERSTICK (CHARGE) [...] ASSAY (ANTI-XA) Routine 11/17/19 11:30 AM EDT MAGNESIUM Routine 11/16/2024 7:50 AM EDT COMPLETE BLOOD COUNT, WITHOUT DIFFERENTIAL Routine 11/16/2024 7:50 AM EDT BASIC METABOLIC PANEL Routine 11/16/2024 7:50 AM EDT POCT GLUCOSE, FINGERSTICK (CHARGE) Routine 11/16/2024 7:39 AM EDT HEPARIN ASSAY (ANTI-XA) Routine 11/17/19 2:16 AM EDT POCT GLUCOSE, FINGERSTICK (CHARGE) Routine 11/15/2024 8:49 PM EDT HEPARIN ASSAY (ANTI-XA) Routine 11/16/19 7:28 PM EDT PARTIAL THROMBOPLASTIN TIME (PTT) Routine 11/15/2024 7:28 PM EDT PROTIME-INR Routine 11/15/2024 7:28 PM EDT COMPLETE BLOOD COUNT, WITH DIFFERENTIAL Routine 11/15/2024 7:28 PM EDT POCT GLUCOSE, FINGERSTICK (CHARGE) Routine 11/15/2024 5:01 PM EDT POCT GLUCOSE, FINGERSTICK (CHARGE) Routine 11/15/2024 12:04 PM EDT MAGNESIUM Routine 11/15/2024 8:40 AM EDT COMPLETE BLOOD COUNT, WITHOUT DIFFERENTIAL Routine 11/15/2024 8:40 AM EDT BASIC METABOLIC PANEL Routine 11/15/2024 8:40 AM EDT POCT GLUCOSE, FINGERSTICK (CHARGE) Routine 11/15/2024 8:29 AM EDT POCT GLUCOSE, FINGERSTICK (CHARGE) Routine 11/14/2024 9:14 PM EDT POCT GLUCOSE, FINGERSTICK (CHARGE) Routine 11/14/2024 5:29 PM EDT POCT GLUCOSE, FINGERSTICK (CHARGE) Routine 11/14/2024 12:12 PM EDT POCT GLUCOSE, FINGERSTICK (CHARGE) Routine 11/14/2024 8:20 AM EDT PHOSPHORUS Routine 11/14/2024 6:50 AM EDT MAGNESIUM Routine 11/14/2024 6:50 AM EDT COMPLETE BLOOD COUNT, WITHOUT DIFFERENTIAL Routine 11/14/2024 6:50 AM EDT BASIC METABOLIC [...] FINGERSTICK (CHARGE) Routine 11/12/2024 11:51 PM EDT HEPARIN ASSAY (ANTI-XA) Routine 11/13/19 11:50 PM EDT HEMOGLOBIN A1C WITH ESTIMATED AVERAGE GLUCOSE Routine 11/12/2024 11:50 PM EDT PHOSPHORUS Routine 11/12/2024 11:50 PM EDT MAGNESIUM Routine 11/12/2024 11:50 PM EDT COMPLETE BLOOD COUNT, WITHOUT DIFFERENTIAL Routine 11/12/2024 11:50 PM EDT BASIC METABOLIC [...] AM EDT HEPARIN ASSAY (ANTI-XA) Routine 11/13/19 1:19 AM EDT PHOSPHORUS Routine 11/11/2024 11:43 PM EDT MAGNESIUM Routine 11/11/2024 11:43 PM EDT COMPLETE BLOOD COUNT, WITHOUT DIFFERENTIAL Routine 11/11/2024 11:43 PM EDT BASIC METABOLIC PANEL Routine 11/11/2024 11:43 PM EDT POCT GLUCOSE, FINGERSTICK (CHARGE) Routine 11/11/2024 11:29 PM EDT POCT GLUCOSE, FINGERSTICK (CHARGE) Routine 11/11/2024 7:59 PM EDT HEPARIN ASSAY (ANTI-XA) Routine 11/12/19 6:49 PM EDT POCT GLUCOSE, FINGERSTICK (CHARGE) Routine 11/11/2024 3:55 PM EDT PARTIAL THROMBOPLASTIN TIME (PTT) Routine 11/11/2024 12:43 PM EDT PROTIME-INR Routine 11/11/2024 12:43 PM EDT COMPLETE BLOOD COUNT, WITH DIFFERENTIAL Routine 11/11/2024 12:43 PM EDT HEMOGLOBIN AND HEMATOCRIT Routine 11/11/2024 11:24 AM EDT HIV 1/2 AG/AB CMIA REFLEX TO CONFIRMATION Routine 11/11/2024 11:24 AM EDT TRANSFERRIN Routine 11/11/2024 11:24 AM EDT FERRITIN Routine 11/11/2024 11:24 AM EDT IRON AND TOTAL IRON BINDING CAPACITY Routine 11/11/2024 11:24 AM EDT PHOSPHORUS Routine 11/11/2024 11:24 AM EDT MAGNESIUM Routine 11/11/2024 11:24 AM EDT BASIC METABOLIC PANEL Routine 11/11/2024 11:24 AM EDT VAS VENOUS DUPLEX LEG (DVT)-BILATERAL Routine 11/11/2024 11:21 AM EDT POCT GLUCOSE, FINGERSTICK (CHARGE) Routine 11/11/2024 11:07 AM EDT XR CHEST 1 VIEW-PORTABLE STAT 11/11/2024 7:32 AM EDT POCT GLUCOSE, FINGERSTICK (CHARGE) Routine 11/11/2024 7:11 AM EDT POCT GLUCOSE, FINGERSTICK (CHARGE) Routine 11/11/2024 3:36 AM EDT HEPATIC FUNCTION PANEL Routine 12:01 AM EDT PHOSPHORUS Routine 11/11/2024 12:01 AM EDT MAGNESIUM Routine 11/11/2024 12:01 AM EDT BASIC METABOLIC PANEL Routine 11/11/2024 12:01 AM EDT COMPLETE BLOOD COUNT, WITHOUT DIFFERENTIAL Routine 11/11/2024 12:01 AM EDT POCT GLUCOSE, FINGERSTICK (CHARGE) Routine 11/10/2024 11:33 PM EDT POCT GLUCOSE, FINGERSTICK (CHARGE) Routine 11/10/2024 7:35 PM EDT POCT GLUCOSE, FINGERSTICK (CHARGE) Routine 11/10/2024 3:42 PM EDT XR CHEST 1 VIEW-PORTABLE Routine 11/10/2024 3:07 PM EDT PHOSPHORUS Routine 11/10/2024 3:00 PM EDT PROTIME-INR Routine 11/10/2024 3:00 PM EDT MAGNESIUM Routine 11/10/2024 3:00 PM EDT BASIC METABOLIC PANEL Routine 11/10/2024 3:00 PM EDT HIGH SENSITIVITY TROPONIN T CARD 11/10/2024 3:00 PM EDT BLOOD GAS WITH COOXIMETRY, ARTERIAL Routine 11/10/2024 3:00 PM EDT UREA NITROGEN, RANDOM URINE STAT 11/10/2024 2:00 PM EDT CREATININE, URINE, RANDOM STAT 11/10/2024 2:00 PM EDT SODIUM, URINE, RANDOM STAT 11/10/2024 2:00 PM EDT LEGIONELLA AND STREPTOCOCCUS PNEUMONIAE ANTIGEN, URINE STAT 11/10/2024 2:00 PM EDT RESPIRATORY CULTURE (AEROBIC AND GRAM STAIN) STAT 11/10/2024 2:00 PM EDT NASAL MRSA SCREEN, PCR STAT 2:00 PM EDT ECG 12-LEAD Routine 11/10/2024 [...] LAB) STAT 11/10/2024 9:04 AM EDT BLOOD GAS WITH COOXIMETRY, VENOUS STAT 11/10/2024 8:56 AM EDT BLOOD CULTURE (HOSP LAB) STAT 11/10/2024 8:56 AM EDT BLOOD GAS WITH COOXIMETRY, ARTERIAL STAT 11/10/2024 7:50 AM EDT XR CHEST 1 VIEW-PORTABLE STAT 11/10/2024 6:54 AM EDT TSH, HIGHLY SENSITIVE STAT 11/10/2024 6:42 AM EDT PROBNP, N-TERMINAL STAT 11/10/2024 6: 42 AM EDT PROCALCITONIN STAT 11/10/2024 6:42 AM EDT HIGH SENSITIVITY TROPONIN T STAT 11/10/2024 6:42 AM EDT LACTIC ACID, PLASMA Routine 11/10/2024 6 :42 AM EDT COMPREHENSIVE METABOLIC PANEL STAT 11/10/2024 6:42 AM EDT COMPLETE BLOOD COUNT, WITH DIFFERENTIAL STAT 11/10/2024 6:42 AM EDT TRIGLYCERIDES STAT 11/10/2024 6:42 AM EDT ECG 12-LEAD STAT 11/10/2024 6:30 AM EDT POCT GLUCOSE, FINGERSTICK (CHARGE) Routine 11/10/2024 6:28 AM EDT MAN ARCHIVE FOR REFERENCE ONLY CR Routine 11/10/2024 6:15 AM EDT MAN ARCHIVE FOR REFERENCE ONLY CR Routine 11/10/2024 6:10 AM EDT from Last 3 Months Results * (ABNORMAL) POCT Glucose, Fingerstick (11/18/2024 7:53 AM EDT) Only the most recent of39 resultswithin the time period is included. POC Glucose 138(H) 65 - 99 mg/dL 11/18/2024 11:34 AM EDT Blood specimen / Unknown 11/18/2024 7:53 AM EDT 11/18/2024 11:34 AM EDT us Satnam Silva MD POINT OF CARE TEST ORDERABLES Final Result HOSPITAL LAB See Below * (ABNORMAL) Basic Metabolic Panel (AM) (11/17/2024 10:32 AM EDT) Only the most recent of11 resultswithin the time period is included. Glucose 138(H) 65 - 99 mg/dL 11/17/2024 11:56 AM T [facility] Comment:Fasting: <100 mg/dL, Non-Fasting: <200 mg/dL (ADA 2004) Blood Urea Nitrogen (BUN) 32(H) 8 - [...] 10.0 - 25.0 Ratio 11/17/2024 11:56 AM [facility] Blood Blood specimen / Unknown 11/17/2024 10:32 AM EDT 11/17/2024 11:22 AM EDT Yung Giraldo MD LAB BLOOD ORDERABLES [place] [address], [address] [place] [address] * (ABNORMAL) Complete Blood Count, with Differential (11/17/2024 8:32 AM EDT) Only the most recent of4 resultswithin the time period is included. White Blood Cell Count 7.1 4.0 - [...] present. Lymphocytes Man 20 % 10:35 AM EDT [facility] Monocytes Man 6 % [facility] Myelocytes 0.1(H) 0 Thou/uL 11/17/2024 10:35 AM [facility] Abs Metamyelocytes 0.2(H) 0 Thou/uL 2024 10[facility] Neutrophils Count (ANC) 5.0 2.0 - 7.5 Thou/uL 11/17/2024 [facility] Lymphocytes Man 1.4(L) 1.5 - 4.5 Thou/uL 11/17/2024 10[facility] Monocytes Man 0.4 0.2 - 1.5 Thou/uL 11/17/2024 10[facility] Normochromic Present 11/17/2024 10:35 AM [facility] Normocytic Present 11/17/2024 10:35 AM [facility] Blood Blood specimen / Unknown 11/17/2024 8:32 AM EDT 11/17/2024 9:43 AM EDT Neil Padilla MD LAB BLOOD ORDERABLES [place] [address], [place] [address] * Heparin Assay (Anti Xa) (11/17/2024 8:32 AM EDT) Only the most recent of9 resultswithin the time period is included. Anti Xa 0.27 IU/mL 11/17/2024 10:17 AM [facility] Comment: (NOTE) Heparin Thromboembolic/Standard/Full Dose Protocol: [...] IV HEPARIN, UNFRACTIONATED 11/17/2024 4:33 AM EDT [facility] Blood Blood specimen / Unknown 11/17/2024 8:32 AM EDT 11/17/2024 9:41 AM EDT us Srinivasan Mattson MD LAB BLOOD ORDERABLES Final Result [address] [address], [address] [address] * CC CORANGIO +LV+L/R CATH (11/16/2024 5:10 PM EDT) Anatomical Region Laterality Modality Radiographic Sandrita ging Narrative 11/16/2024 5:30 PM EDT Table formatting from the original result was not included. Images from the original result were not included. [facility] Heart & Vascular [place] [facility] - Cardiac Catheterization Laboratory PATIENT DEMOGRAPHIC INFORMATION Name: Marli Hanna : 1970 54 y.o. Sex: female Gender: female Procedure Date: 11/16/2024 Referring Physician: Yung Giraldo Referring Calibrator Barometers: Nan Dietz PCP: No primary care provider [...] moderately elevated LVEDP (23-25 mmHg) PROCEDURE DETAILS County Coroner: Carlos Herman MD Fellow: None Scoop Operator(s): none Indications for Procedure: ?? CAD and heart failure CLINICAL HISTORY 54-year-old female with a history of type 2 diabetes, hypertension, hyperlipidemia, with recent admission in September to [facility] after being transferred from [facility] for respiratory failure requiring intubation. ??An [...] patient. ??Risks including but not limited to CO, stroke, bleeding/vascular complications, emergency cardiac surgery, adverse [...] anatomy for symptom relief, reduction in recurrent CO and mortality was discussed with the patient. ??The alternative of not proceeding with cath and medical therapy alone or additional noninvasive testing was discussed with the patient. ??She voiced understanding wishes to proceed ASA class III Mallampati: 1 PROCEDURE Venous Access: Ultrasound-guided left common femoral vein with micropuncture kit--(right antecubital/brachial veins appear sclerotic and/or chronically thrombosed in the antecubital fossa) 5 [place]alan [place] sheath placed in L CFV Arterial Access: Ultrasound-guided right radial artery with 6 Guatemalan slender glide sheath Diagnostic catheters: 5 Guatemalan balloontipped PA catheter, 5 Guatemalan JR4, 5 Guatemalan JL 3.5 Final contrast: 19 mL Hemostasis: Manual compression for the venous access site, TR band for the radial access site with 12 cc of air. ??Patent hemostasis documented by plethysmography Complications: None PROCEDURE FINDINGS Tracings available in Tag & See log report Pressures Site ?? RA 9 [...] and supervised by the under signed attending MD. See meds list. Sedation Time: 39 minutes [...] this patient that I request from a [facility] PA/CLAIM ANALYST/fellow/staff member. 11/16/2024 ??5:25 PM Coronary Findings Diagnostic [...] failure Carlos Herman MD CV CARDIAC CATH ORDERABLES Final Result * (ABNORMAL) POCT O2 Saturation (AVOX) (11/16/2024 4:39 PM EDT) [facility] SVC 61.9 60 - 75 % RA 55.6(A) 60 - 75 % PA 52.5(A) 60 - 75 % PCW 85.8(A) 93 - 99 % AO 92.1(A) 95 - 99 % Lot Number [id number] Valuer Pass Pass Blood 11/16/2024 4:39 PM EDT Carlos Herman MD POINT OF CARE TEST ORDERABLES Fi nal Result * (ABNORMAL) COMPLETE BLOOD COUNT, WITHOUT DIFFERENTIAL (11/16/2024 7:50 AM EDT) Only the most recent of6 resultswithin the time period is included. [facility] White Blood Cell Count 7.7 4.0 - 11.0 Thou/uL 11/16/2024 8:52 AM EDT [facility] Platelet Count 300 150 - 450 Thou/uL 11/16/2024 8:52 AM EDT [facility] Hemoglobin 9.4(L) 11.7 - 15.7 g/dL 11/16/2024 8:52 AM EDT [facility] Hematocrit 30.1(L) 35.0 - 47.0 % 11/16/2024 8:52 AM EDT [facility] Red Blood Cell Count 3.72(L) 4.00 - 5.40 Mil/uL 11/16/2024 8:52 AM EDT [facility] MCV 81 80 - 100 fL 11/16/2024 8:52 AM [facility] MCH 25.3(L) 27.0 - 31.0 pg 11/16/2024 8:52 AM [facility] MCHC 31.2 30.0 - 36.0 g/dL 11/16/2024 8:52 AM T [facility] RDW 13.8 11.5 - 14.5 % 11/16/2024 8:52 AM [facility] MPV 9.7 7.5 - 12.5 fL 11/16/2024 8:52 AM [facility] nRBC 0.3(H) 0.0 - 0.1 /100 WBC 11/16/2024 8:52 AM [facility] nRBC, Absolute 0.02 0.00 - 0.02 Thou/uL 11/16/2024 8:52 AM T [facility] Blood Blood specimen / Unknown 11/16/2024 7:50 AM EDT 11/16/2024 8:31 AM EDT us Neil Padilla MD LAB BLOOD ORDERABLES Final Resul t Performing Organization Address [facility] [place] [address], [place] [address] * MAGNESIUM (11/16/2024 7:50 AM EDT) Only the most recent of10 resultswithin the time period is included. Magnesium 2.1 1.6 - 2.7 mg/dL 11/16/2024 9:09 AM EDT [facility] Blood Blood specimen / Unknown 11/16/2024 7:50 AM EDT 11/16/2024 8:31 AM EDT us Neil Padilla MD LAB BLOOD ORDERABLES Final Resul t [address] [address], [address] [address] * (ABNORMAL) Partial Thromboplastin Time (PTT) (11/15/2024 7:28 PM EDT) Only the most recent of2 resultswithin the time period is included. Anticoagulant IV HEPARIN, UNFRACTIONATED 11/15/2024 6:52 PM EDT [facility] Partial Thromboplastin Time (PTT) 47(H) 25 - 36 seconds 11/15/2024 8:11 PM EDT [facility] Blood Blood specimen / Unknown 11/15/2024 7:28 PM EDT 11/15/2024 7:47 PM EDT us Neil Padilla MD LAB BLOOD ORDERABLES Final Resul t Performing Organization Address [facility] [place] [address], [address] [address] * Protime-INR (11/15/2024 7:28 PM EDT) Only the most recent of3 resultswithin the time period is included. Anticoagulant IV HEPARIN, UNFRACTIONATED 11/15/2024 6:52 PM EDT [facility] Prothrombin Time (PT) 12.3 10.0 - 13.5 seconds 11/15/2024 8:11 PM EDT [facility] INR 1.1 11/15/2024 8:11 PM EDT [facility] Comment:INR Therapeutic Rang es: Standard dose anticoagulant 2.0 to 3.0, High dose anticoagulant 2.5-3.5. Blood Blood specimen / Unknown 11/15/2024 7:28 PM EDT 11/15/2024 7:47 PM EDT us Neil Padilla MD LAB BLOOD ORDERABLES Final Resul t Performing Organization Address [facility] Co de Phone Number [address] [address], [address] [address] * Phosphorus (11/14/2024 6:50 AM EDT) Only the most recent of8 resultswithin the time period is included. Phosphorus 4.2 2.7 - 4.5 mg/dL 11/14/2024 8:35 AM EDT [facility] Blood Blood specimen / Unknown 11/14/2024 6:50 AM EDT 11/14/2024 7:16 AM EDT us Neil Padilla MD LAB BLOOD ORDERABLES Final Resul t [address] [address], [address] [address] * US Renal (11/13/2024 11:06 PM EDT) [...] BLADDER: Normal. IMPRESSION: No stones or hydronephrosis. us Heather Temo RITTER IMG US ORDERABLES Final Result * ECG 12 lead (11/13/2024 8:07 AM EDT) Only the most recent of3 resultswithin the time period is included. Pathologist [facility] Systolic BP 114 mmHg EKG [facility] Diastolic BP 51 mmHg EKG [facility] Ventricular rate 96 BPM EKG [facility] Atrial rate 96 BPM EKG [facility] P-R interval 150 ms EKG [facility] QRS duration 138 ms EKG [facility] Q-T interval 398 [facility] (Bazett) 502 ms EKG [facility] P axis 31 degrees EKG [facility] R axis 43 degrees EKG [facility] T axis -11 [facility] 11/13/2024 8:07 AM EDT Narrative EKG [facility] - 11/13/2024 12:36 PM EDT Sinus rhythm with frequent Premature ventricular complexes Non-specific intra-ventricular conduction block Possible Inferior infarct , age undetermined Possible Anterolateral infarct (cited on or before 10-Nov-2024) Abnormal ECG When compared with ECG of 10-Nov-2024 13:32, Premature ventricular complexes are now Present Confirmed by MD Amador Mohamad ([id number]) on 11/13/2024 12:36:40 PM Procedure Note Bob Amador MD - 11/13/2024 Sinus rhythm with frequent Premature ventricular complexes Non-specific intra-ventricular conduction block Possible Inferior infarct , age undetermined Possible Anterolateral infarct (cited on or before 10-Nov-2024) Abnormal ECG When compared with ECG of 10-Nov-2024 13:32, Premature ventricular complexes are now Present Confirmed by MD Amador Mohamad ([id number]) on 11/13/2024 12:36:40 PM Heather Plascencia PA-C ECG ORDERABLES Final Result EKG [facility] * (ABNORMAL) Hemoglobin A1c with Estimated Average Glucose (Routine) (11/12/2024 11:50 PM EDT) [facility] Hemoglobin A1C 6.0(H) <5.7 % 11/13/2024 1:49 AM EDT [facility] Comment: A1c% ? Interpretation 5.7 - 6.0 ?Increase risk of diabetes 6.1 - 6.4 ?Higher risk of diabetes > or = 6.5 ?? Consistent with diabetes Diabetes Care, 33(Supp 1):S1-S61, 2010 Estimated Average Glucose 126 mg/dL 11/13/2024 1:49 AM T [facility] Blood Blood specimen / Unknown 11/12/2024 11:50 PM EDT 11/13/2024 12:01 AM EDT Elinor FONTANA LAB BLOOD ORDERABLES [place] [address], [place] [address] * (ABNORMAL) Blood Gas with Cooximetry, Arterial (11/12/2024 10:15 AM EDT) Only the most recent of3 resultswithin the time period is included. [facility] Respiratory Info VENT 40% 11/13/19 25 10:16 AM EDT [facility] pH, Arterial 7.35 7.35 - 7.45 11/12/2024 10:37 AM EDT [facility] pCO2, Arterial 42 32 - 45 mmHG 11/12/2024 10:37 AM EDT [facility] pO2, Arterial 78 75 - 95 mmHG 11/12/2024 10:37 AM EDT [facility] CO2, Total 24 22 - 28 mmol/L 11/12/2024 10:37 AM EDT [facility] P/F Ratio 195 11/12/2024 10:37 AM EDT [facility] Comment:P/F < 300 or < 200: question ALI or ARDS. Base Deficiency 2.5 mmol/L 10:37 AM T [facility] Comment:Reference Range: Neg ative 2 to [...] 10:29 AM EDT Elinor FONTANA LAB BLOOD ORDERABLES [place] [address], [address] [id number] * (ABNORMAL) Iron and Total Iron Binding Capacity (11/11/2024 11:24 AM EDT) Iron 16(L) 59 - 151 ug/dL 11/11/2024 1:42 PM EDT [facility] UIBC 209 112 - 346 ug/dL 11/11/2024 1:42 PM EDT [facility] Total Iron Binding Capacity 225 100 - 400 ug/dL 11/11/2024 1:42 PM EDT [facility] Iron Sat 7(L) 20 - 50 % 11/11/2024 1:42 PM EDT [facility] Blood Blood specimen / Unknown 11/11/2024 11:24 AM EDT 11/11/2024 1:05 PM EDT Elinor FONTANA LAB BLOOD ORDERABLES Final Result [address] [address], [place] [address] * HIV 1/2 Ag/Ab CMIA Reflex to Confirmation (11/11/2024 11:24 AM EDT) HIV 1/2 Ag/Ab CMIA Nonreactive Nonreactive 11/12/2024 10:22 AM EDT [facility] Comment: Results show no [...] 1:05 PM EDT Elinor FONTANA LAB BLOOD ORDERABLES Final Result [facility] [address] [place] [address], * (ABNORMAL) Hemoglobin and Hematocrit (11/11/2024 11:24 AM EDT) Hematocrit 28.6(L) 35.0 - 47.0 % 11/11/2024 1:13 PM EDT [facility] Hemoglobin 8.8(L) 11.7 - 15.7 g/dL 11/11/2024 1:13 PM EDT [facility] Blood Blood specimen / Unknown 11/11/2024 11:24 AM EDT 11/11/2024 1:05 PM EDT Elinor FONTANA LAB BLOOD ORDERABLES Final Result [address] [address], [address] [address] * (ABNORMAL) Transferrin (11/11/2024 11:24 AM EDT) Transferrin 189(L) 200 - 360 mg/dL 11/11/2024 1:42 PM EDT [facility] Blood Blood specimen / Unknown 11/11/2024 11:24 AM EDT 11/11/2024 1:05 PM EDT Elinor FONTANA LAB BLOOD ORDERABLES Final Result Performing Organization Address City/[facility]/[place] [address], [place] [address] * Ferritin (11/11/2024 11:24 AM EDT) Ferritin 114 30 - 400 ug/L 11/11/2024 1:42 PM EDT [facility] Blood Blood specimen / Unknown 11/11/2024 11:24 AM EDT 11/11/2024 1:05 PM EDT Elinor FONTANA LAB BLOOD ORDERABLES Final Result Performing Organization Address [facility] Co de Phone Number [address] [address], [place] [address] * VAS VENOUS DUPLEX LEG (DVT)-BILATERAL (11/11/2024 11:21 AM EDT) Anatomical Region Laterality Modality Ultrasound 11/11/2024 9:55 AM EDT Narrative 11/11/2024 12:51 PM EDT Table formatting from the original result was not included. ?? Department: [facility] Patient: [id number] (MARLI HANNA) ?? Patient Location: ..[place] [address].[facility] CPT Code: 64187 ICD-9: ?? Referring Physician: ANGIE BIOLO Impression Critical Findings: The report was given to [...] Note Mihai Vicente MD - 11/11/2024 Department: [facility] Patient: [id number] (MARLI HANNA) Patient Location: ..[place] [address].[facility] CPT Code: 41627 ICD-9: Referring Physician: ANGIE CASAS Impression Critical Findings: The report was given to [...] Electronically Signed by: Mihai Vicente MD, MPH, VI on :51:41 PM End of Report us Angie Sheth PA-C VASCULAR LAB ORDERABLES Final Result * XR Chest 1 view-Portable (STAT) (11/11/2024 7:32 AM EDT) Only the most recent of3 resultswithin the time period is included. Anatomical Region Laterality Modality Chest Computed Radiogr [...] in position of coiled up enteric tube. us Cindy FONTANA [facility] ORD ERABLES Final Result * (ABNORMAL) HEPATIC FUNCTION PANEL (11/11/2024 12:01 AM EDT) Alkaline Phosphatase 96 32 - 122 U/L 11/11/2024 12:48 AM EDT [facility] Aspartate Aminotrans (AST) 36 10 - 50 U/L 11/11/2024 12:48 AM EDT [facility] Alanine Aminotrans (ALT) 49 10 - 50 U/L 11/11/2024 12:48 AM EDT [facility] Bilirubin, Total 0.8 0.2 - 1.0 mg/dL 11/11/2024 12:48 AM EDT [facility] Protein, Total 7.4 6.3 - 8.3 g/dL 11/11/2024 12:48 AM EDT [facility] Albumin 3.5 3.5 - 5.0 g/dL 11/11/2024 12:48 AM T [facility] Bilirubin, Direct 0.3(H) 0 - 0.2 mg/dL 11/11/2024 12:48 AM EDT [facility] Globulin 3.9 1.5 - 3.9 g/dL 11/11/2024 12:48 AM T [facility] Albumin/Globulin Ratio 0.9(L) 1.0 - 3.0 Ratio 11/11/2024 12:48 AM T [facility] Blood Blood specimen / Unknown 11/11/2024 12:01 AM EDT 11/11/2024 12:23 AM EDT Oxana Tomas PA-C LAB BLOOD ORDERABLES Final Result Performing Organization Address [facility]/[place] [address], [place] [address] * (ABNORMAL) High Sensitivity Troponin T (Once) (11/10/2024 3:00 PM EDT) Only the most recent of2 resultswithin the time period is included. High Sensitivity Troponin T 70(HH) <15 ng/L 11/10/2024 4:03 PM EDT [facility] Comment:Recurring Critical R esult. Previously phoned. Delta (Change) 9(H) <3 11/10/2024 4:03 PM EDT [facility] Comment:Decreased Blood Blood specimen / Unknown 11/10/2024 3:00 PM EDT 11/10/2024 3:22 PM EDT us Angie Sheth PA-C LAB BLOOD ORDERABLES Final Re sult Performing Organization Address City/[facility]/[place] [address], [address] [address] * Respiratory Culture (aerobic and gram stain) (11/10/2024 2:00 PM EDT) Gram stain suggestive of Many neutrophils No squamous cells Mixed normal jeramie 11/10/2024 3:55 PM EDT [facility] Culture Negative after 2 days 11/12/2024 11:35 AM EDT [facility] Sputum Specimen from trachea / Unknown 11/10/2024 2:00 PM EDT 11/10/2024 3:04 PM EDT Comment:Sputum Oxana Tomas PA-C MICROBIOLOGY - GENERAL ORDE RABLES Final Result Performing Organization Address [facility]/ZIP Co de Phone Number [facility] [address] [place] [address], [place] * (ABNORMAL) Legionella & Streptococcus Pneumoniae Antigen, Urine (11/10/2024 2:00 PM EDT) Legionella Antigen EIA, Urine Presumptive Negative Presumptive Negative 11/11/2024 9:31 AM EDT [facility] Comment: Presumptive Negative for [...] Positive(A) Presumptive Negative 11/11/2024 9:31 AM EDT [facility] Comment:Presumptive Positive for Pneumococcal Pneumonia, suggesting current or past infection. Urine Urine specimen / Unknown 11/10/2024 2:00 PM EDT 11/10/2024 2:33 PM EDT Oxana Tomas PA-C URINE ORDERABLES Final Resu lt Performing Organization Address [facility]/ZIP Co de Phone Number [facility] [address] [place] [address], [place] * MRSA PCR Screen, Qualitative (11/10/2024 2:00 PM EDT) MRSA Result Not Detected Not Detected 4:06 PM EDT [facility] Comment:Performed by the Xpe rt MRSA NxG Assay Swab, Anterior Nares Specimen from nose / Unknown 11/10/2024 2:00 PM EDT 11/10/2024 2:35 PM EDT Oxana Tomas PA-C MICROBIOLOGY - GENERAL FANNIE BURNETTE Final Result Performing Organization Address [facility] [place] [address], [address] [address] * Urea Nitrogen, Urine, Random (11/10/2024 2:00 PM EDT) Urea Nitrogen, Random Urine 175 mg/dL 11/10/2024 3:02 PM EDT [facility] Comment:Reference range not established for random specimen. Urine Urine specimen / Unknown 11/10/2024 2:00 PM EDT 11/10/2024 2:33 PM EDT Amalia FONTANA-C URINE ORDERABLES Final Resul t Performing Organization Address [facility] Co de Phone Number [address] [address], [address] [address] * Sodium, Urine, Random (11/10/2024 2:00 PM EDT) Sodium, Urine Random 108 mmol/L 11/10/2024 3:02 PM EDT [facility] Comment:Reference range not established for random specimen. Urine Urine specimen / Unknown 11/10/2024 2:00 PM EDT 11/10/2024 2:33 PM EDT Amalia Tan PA-C URINE ORDERABLES Final Resul t Performing Organization Address City/[facility]/ZIP Co de Phone Number [address] [address], [address] [address] * Creatinine, Urine, Random (11/10/2024 2:00 PM EDT) Creatinine, Urine, Random 19 mg/dL 11/10/2024 3:02 PM EDT [facility] Comment:Reference range not established for random specimen. Urine Urine specimen / Unknown 11/10/2024 2:00 PM EDT 11/10/2024 2:33 PM EDT us Amalia Tan PA-C URINE ORDERABLES Final Resul t [address] [address], [address] [address] * XR Abdomen 1 view (11/10/2024 9:52 [...] IMPRESSION: No acute finding. Oxana Tomas PA-C IMG DIAGNOSTIC IMAGING ORDE VASILE Final Result * ECHOCARDIOGRAM COMPREHENSIVE (11/10/2024 9:47 AM EDT) [...] previous study for comparison in our system. us Oxana Tomas PA-C CV ECHO ORDERABLES Final Re sult * Respiratory PCR Panel (11/10/2024 9:09 AM EDT) Adenovirus Not Detected Not Detected 11/10/2024 12:41 PM EDT [facility] Coronavirus 229E Not Detected Not Detected 11/10/2024 12:41 [facility] Coronavirus HKU1 Not Detected Not Detected 11/10/2024 12:41 PM [facility] Coronavirus NL63 Not Detected Not Detected 11/10/2024 12:41 PM [facility] Coronavirus OC43 Not Detected Not Detected 11/10/2024 12:41 PM [facility] Human Metapneumovirus Not Detected Not Detected 11/10/2024 12:41 PM [facility] Rhinovirus/Enterov irus Not Detected Not Detected 11/10/2024 12:41 PM [facility] Influenza A Not Detected Not Detected 11/10/2024 12:41 PM [facility] Influenza B Not Detected Not Detected 11/10/2024 12:41 PM [facility] Parainfluenza 1 (PIV1) Not Detected Not Detected 11/10/2024 12:41 PM T [facility] Parainfluenza 2 (PIV2) Not Detected Not Detected 11/10/2024 12:41 PM T [facility] Parainfluenza 3 (PIV3) Not Detected Not Detected 11/10/2024 12:41 PM T [facility] Parainfluenza 4 (PIV4) Not Detected Not Detected 11/10/2024 12:41 PM [facility] Respiratory Syncytial Virus Not Detected Not Detected 11/10/2024 12:41 PM T [facility] Bordetella pertussis Not Detected Not Detected 11/10/2024 12:41 PM [facility] Chlamydophila pneumoniae Not Detected Not Detected 11/10/2024 12:41 PM EDT [facility] Mycoplasma pneumoniae Not Detected Not Detected 11/10/2024 12:41 PM EDT [facility] Bordetella parapertussis Not Detected Not Detected 11/10/2024 12:41 PM EDT [facility] SARS CoV 2 Not Detected Not Detected 11/10/2024 12:41 PM EDT [facility] Swab, Nasopharyngeal Nasopharyngeal swab / Unknown 11/10/2024 9:09 AM EDT 11/10/2024 9:22 AM EDT Oxana Tomas PA-C MICROBIOLOGY - GENERAL ORDE RABLES Final Result Performing Organization Address City/[facility]/ZIP Co de Phone Number [facility] [address] [place] [address], * Blood Culture (11/10/2024 9:04 AM EDT) Only the most recent of2 resultswithin the time period is included. Pathologist [facility] Culture Sterile after 5 days 11/15/2024 7:59 AM EDT [facility] Blood Blood specimen / Unknown 11/10/2024 9:04 AM EDT 11/10/2024 9:36 AM EDT Comment:Blood Oxana Tomas PA-C LAB BLOOD ORDERABLES Final Result Performing Organization Address City/[facility]/ZIP Co de Phone Number [facility] [address] [place] [address], * (ABNORMAL) Blood Gas with Cooximetry, Venous (11/10/2024 8:56 AM EDT) Respiratory Info VENT 100% 11/11/19 8:38 AM EDT [facility] Venous Blood PH 7.24(L) 7.33 - 7.43 11/10/2024 9:22 AM EDT [facility] Venous pCO2 51(H) 35 - 50 mmHG 11/10/2024 9:22 AM EDT [facility] Venous pO2 65(H) 0 - 60 mmHG 11/10/2024 9:22 AM [facility] Venous Total CO2 23 23 - 29 mmol/L 11/10/2024 9:22 AM [facility] Base Deficiency 5.7 mmol/L 9:22 AM [facility] Comment:Reference Range: Neg [...] AM EDT 11/10/2024 9:17 AM EDT Oxana Tomas PA-C LAB BLOOD ORDERABLES Final Result Performing Organization Address City/State/[facility] [place] [address], [place] [address] * (ABNORMAL) PROCALCITONIN (11/10/2024 6:42 AM EDT) Procalcitonin 1.14(H) <0.09 ng/mL 11/10/2024 8:53 AM [facility] Comment: (NOTE) ?Procalcitonin (PCT) Guided Antibiotic [...] 6:42 AM EDT 11/10/2024 7:15 AM EDT us Satnam Silva MD LAB BLOOD ORDERABLES Final Re sult [address] [address], [address] [address] * (ABNORMAL) proBNP, N-terminal (11/10/2024 6:42 AM EDT) proBNP, N-terminal 2,385(H) <125 pg/mL 11/10/2024 8:53 AM EDT [facility] 11/10/2024 6:42 AM EDT 11/10/2024 7:15 AM EDT us Satnam Silva MD LAB BLOOD ORDERABLES [place] [address], [place] [address] * (ABNORMAL) Triglycerides (11/10/2024 6:42 AM EDT) Pathologist [facility] Triglycerides 210(H) <150 mg/dL 11/10/2024 7:41 AM EDT [facility] Blood Blood specimen / Unknown 11/10/2024 6:42 AM EDT 11/10/2024 7:15 AM EDT us Satnam Silva MD LAB BLOOD ORDERABLES Final Re sult Performing Organization Address [facility] Co de Phone Number [address] [address], [address] [address] * TSH, HIGHLY SENSITIVE (11/10/2024 6:42 AM EDT) TSH, Highly Sensitive 2.76 0.27 - 4.20 mIU/L 11/10/2024 8:53 AM EDT [facility] 11/10/2024 6:42 AM EDT 11/10/2024 7:15 AM EDT us Satnam Silva MD LAB BLOOD ORDERABLES Final Re sult [address] [address], [address] [address] * Lactic Acid, Plasma (STAT) (11/10/2024 6:42 AM EDT) Lactic Acid 1.3 0.5 - 1.9 mmol/L 11/10/2024 7:26 AM EDT [facility] Blood Blood specimen / Unknown 11/10/2024 6:42 AM EDT 11/10/2024 6:59 AM EDT us Satnam Silva MD LAB BLOOD ORDERABLES [place] [address], [place] [address] * (ABNORMAL) Comprehensive metabolic panel (11/10/2024 6:42 [...] 6:42 AM EDT 11/10/2024 7:15 AM EDT us Satnam Silva MD LAB BLOOD ORDERABLES Final Re sult [address] [address], [address] [address] * MAN Archive for reference only CR (11/10/2024 6:15 AM EDT) Only the most recent of2 resultswithin the time period is included. Narrative SYSTEMGENERATED, DOCUMENTATION - 11/10/2024 6:08 AM EDT This order has been auto-finalized and does not contain a result. Heather Plascencia PA-C IMG DIGITIZE FILMS Final Result from Last 3 Months Insurance [facility] Advance Directives * Full Code (Latest Code Status on File) Date Activated Date Inactivated Comments 11/10/2024 7:51 AM Healthcare Agents on File Name Relationship Healthcare Agent Relationshi p Communication Scott Andre Adult child 4. Next of Kin ( Spouse, Adult Child, Parent, Adult Sibling, Grandparent) Benito Hanna Adult child 4. Next of Kin ( Spouse, Adult Child, Parent, Adult Sibling, Grandparent) Alfred Rios Adult child 4. Next of Kin (Spouse, Adult Child, Parent, Adult Sibling, Grandparent)
--- OUTSIDE RECORDS SUMMARY | 2025-01-11 12:32 | XMS_ITS | Clinical Summary ---
Author Organization [facility] Address [address] [place] [address] Phone Care Team Providers Care Head Charger Name Role Phone Phill Banuelos MD Primary Care Provider [phone] Allergies Active Allergy Reactions Criticality Noted Date [...] Last Done Comments Breast Cancer Screening 1971 Hepatitis B Vaccine (1 of 3 - 19+ 3-dose series) 1990 Pneumococcal Vaccine: 50+ Ye ars (1 of 2 - PCV) 1990 Colorectal Cancer Screening: Annual FOBT 2020 Colorectal Cancer Screening: Colonoscopy 2020 Colorectal Cancer Screening: Sigmoidoscopy 2020 Diabetes: Ophthalmology Exam 10/02/2020 Diabetes: Pedal Pulse Checked 10/02/2020 Diabetes: Sensory Foot Exam 10/02/2020 Diabetes: Visual Foot Exam 10/02/2020 Diabetes: Hemoglobin A1C 02/12/2025 025, 01/21/2022, 09/28/2020, Additional history exists Influenza Vaccine (Season Ended) 2025 Procedures Procedure Name Priority Date/Time Associated Diagnosis [...] 10.1 8.7 - 10.7 mg/dL eGFR Non-Afr Singaporean 48 Magnesium 1.6 1.6 - 2.4 Hemoglobin A1C 11.5(A) 4.0 - 6.0 01/21/2022 [facility] Provider LAB BLOOD ORDERABLES Amarilis l Result from Last 3 Months or Most Recently Relevant to Health Maintenance Insurance Medicaid Medicaid [facility] Medicaid Care Teams Head Charger Relationship Specialty Start Date End Date Phill Banuelos MD [address] [place] [address] [id number] [place], [place] PCP - General Internal Medicine 04/26/21
[2025-01-11 13:19] LABS: Appearance Urine Clear; Color Urine Yellow; Glucose Urine UA >=1000 mg/dL (Negative); Leukocyte Esterase Urine Moderate (2+) (Negative); Nitrite Urine Negative (Negative); PH 5.5 (5.0-9.0); Specific Gravity - Urine 1.015 (1.005-1.025); UMIC TRIGGER UA YES; Urine Blood Negative (Negative); Urine Ketones Negative (Negative); Urine Protein 100 (2+) mg/dL (Neg-Trace)
[2025-01-11 13:23] LABS: Bacteria Urine Trace (None Seen); Hyaline Casts Urine 0-2 /LPF (0-2); RBC Urine 0-2 /HPF (0-2)
== END 2025-01-11 11:04 | disposition home or self-care (01) ==
LOC: HO.10HDLNP 11:03
PROVIDERS: Visit Provider Internal Medicine Hypertension Specialist
DX: N18.9 Chronic kidney disease, unspecified (principal); R82.90 Unspecified abnormal findings in urine
CPT/HCPCS: 81001; 99212

== ENCOUNTER 2025-01-11 11:14 | Outpatient (AMB) | payer OTHER, SELFPAY ==
[2025-01-11 11:17] VITALS: BP 110/76; PULSE 87; O2SAT 99; BMI 36.1
--- NOTE | 2025-01-11 11:17 | HO.NEPHOV ---
Vital Signs 01/11/25 11:17 Height 5 ft 1 in Weight 191 lb BMI 36.1 BP 110/76 Blood Pressure Location Lt brachial Position Sitting Pulse 87 Pulse Source Pulse Oximeter Pulse Oximetry (%) 99 Oxygen Delivery Method Room Air Intake Visit Reasons: FU/ Conf Trackless Trolley Driver Required: No Accompanied by: Self / Same As Patient Allergies shellfish derived [SHELLFISH DERIVED] Allergy (Severe, Verified 01/11/25 11:19) ANAPHALAXIS Iodinated Contrast Media [IODINATED CONTRAST MEDIA - IV DYE] Allergy (Unknown, Verified 01/11/25 11:19) CAN NOT HAVE DUE TO SHELLFISH ALLERGY Medication List - Last Reconciled 01/11/25 by Nacho Rivas MD [( [place] toilet shaped toilet seat ) As directed] [2 grab bars 16 inches As directed] apixaban (Eliquis) 5 mg PO BID aspirin 81 mg PO DAILY atorvastatin 40 mg PO DAILY blood sugar diagnostic (FreeStyle Lite Strips) As directed twice a day carvedilol 6.25 mg PO BID dulaglutide (Trulicity) 1.5 mg subcut Q7D empagliflozin (Jardiance) 10 mg PO DAILY famotidine 20 mg PO DAILY ferrous sulfate 325 mg PO DAILY levothyroxine 137 mcg PO DAILY 30 days sacubitril-valsartan 97-103 mg (Entresto) 1 tab PO BID spironolactone 25 mg PO DAILY HPI Comments Details: Pt is a 53 y/o female with a medical history of CKD stage 3a, proteinuria, uncontrolled DMII, HTN, RLS, GERD, hypercholesterolemia, morbid obesity, hx of cholecystectomy. Some diastolic dysfunction 2/2 HTN per cardiology in 2021 based on echo. She was referred by her PCP Dr Banuelos for proteinuria. History of ongoing proteinuria since at least 2018, DMII longstanding microalbumin to creatinine ratio 1404 in January, she has been elevated since at least 2018 (at that time ratio was 1596) reports she recently lost 25lbs by losing more vegetables, cut down on rice to once weekly as well but still could improve, bread is my weakness. no shortness of breath no chest pain denies urinary symptoms- no burning, frequency, urgency, nocturia, blood in urine or flank pain. She underwent renal ultrasonogram which was reportedly normal 11/21/2024. Two weeks ago she had cardiac arrest and resuscitated. [place] [facility] [place] for cardiac evaluation. She is off chlorthalidone. Currently on Lasix 20 mg a day. She has no cardiology follow up 01/11/25 54-year-old female presenting with medication management and laboratory monitoring following recent adjustments in heart failure and hypertension therapy. Changes in her therapeutic regimen include the addition of spironolactone/Entresto and removal of amlodipine. 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 Since the medication changes, she has maintained stable functionality without respiratory compromise or indications of hyperkalemia. The necessity for laboratory evaluations is emphasized to ascertain kidney function stability and monitor for increased potassium levels due to spironolactone administration. The patient confirms adherence to medications and notes minor fluctuations in weight without significant variation observed. [facility] Medical History Type 2 diabetes mellitus with diabetic neuropathy, unspecified Hypothyroidism Vitamin D deficiency HLD (hyperlipidemia) HTN (hypertension) T2DM (type 2 diabetes mellitus) Surgical History History of cholecystectomy Hx of section Family History Father Hypertension Heart disease Mother Breast cancer Family history of thyroid problem Social History Housing: Apartment Alcohol intake: former Patient Tobacco Use Status: Never used Tobacco service: No Current occupational status: unemployed Cognitive needs: Yes (cane) Hearing needs: No Vision needs: Yes (rx contacts) Physical Exam Vital Signs: Last Vital Signs Pulse 87 01/11/25 11:17 BP 110/76 01/11/25 11:17 Pulse Ox 99 01/11/25 11:17 Oxygen Delivery Method Room Air 01/11/25 11:17 BMI result Body Mass Index 36.1 Comfortable Neck supple no JVD. Lungs entry equal no rales. Heart S1-S2 heard no gallop or rub. Abdomen soft nontender. Neuro alert awake oriented. No asterixis. Extremities no edema. Results Reviewed Nephrology Results: Hgb 11.8 g/dl (12.0-16.0) L 11/09/24 WBC 14.1 X10*3/uL (4.8-10.8) H 11/09/24 Plt Count 345 X10*3/uL (160-400) 11/09/24 Sodium 137 mmol/L (135-145) 11/23/24 Potassium 4.4 mmol/L (3.3-5.1) 11/23/24 Chloride 107 mmol/L (96-108) 11/23/24 Carbon Dioxide 22 mmol/L (22-29) 11/23/24 BUN 34 mg/dL (9-16) H 11/23/24 Creatinine 1.36 mg/dL (0.5-1.4) 11/23/24 Calcium 9.7 mg/dL (8.4-10.2) 11/23/24 Urine Protein 300 (3+) mg/dL (Neg-Trace) H 11/23/24 Urine Creatinine 71.23 mg/dL 10/11/24 Assessment & Plan Assessment & Plan (1) Type 2 diabetes mellitus with diabetic neuropathy, unspecified: Code(s): E11.40 - Type 2 diabetes mellitus with diabetic neuropathy, unspecified Category: Medical Qualifiers: Diabetes mellitus intermediate accountant insulin use: without intermediate accountant use Qualified Code(s): E11.40 - Type 2 diabetes mellitus with diabetic neuropathy, unspecified (2) Proteinuria: Code(s): R80.9 - Proteinuria, unspecified Category: Medical Qualifiers: Proteinuria type: persistent Qualified Code(s): R80.1 - Persistent proteinuria, unspecified (3) CKD (chronic kidney disease): Code(s): N18.9 - Chronic kidney disease, unspecified Category: Medical Plan 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 Differential would include FSGS from obesity. Serological workup for nondiabetic causes are unremarkable GILBERTO due to hypoperfusion Renal function is improving She would benefit from SGLT2 inhibitors, for renal protection and improved diabetic control advised reduce salt in diet continue to work on additional weight loss continue to work on improving blood sugar control REpeat REnal function and K CHF Severely reduced EF at 27% Now on Entresto and Spironolactone Orders: Orders Basic Metabolic Panel 2 Months N18.9 - Chronic kidney disease, unspecified Coding Level of Care Code Est Pt Level 4 (53198) Diagnoses Type 2 diabetes mellitus with diabetic neuropathy, without long-term current use of insulin E11.40 Diabetes mellitus nursing home insulin use: without nursing home use Persistent proteinuria R80.1 Proteinuria type: persistent CKD (chronic kidney disease) N18.9
== END 2025-01-11 11:31 | disposition home or self-care (01) ==
LOC: HO.HKA 11:15
PROVIDERS: PCP Internal Medicine; Visit Provider Internal Medicine Hypertension Specialist
DX: E11.40 Type 2 diabetes mellitus with diabetic neuropathy, unspecified (principal); R80.1 Persistent proteinuria, unspecified; N18.9 Chronic kidney disease, unspecified
CPT/HCPCS: 99214

== ENCOUNTER 2025-01-18 13:17 | Outpatient (REF) | payer OTHER, SELFPAY ==
--- OUTSIDE RECORDS SUMMARY | 2025-01-18 14:24 | XMS_ITS | Clinical Summary ---
Author Organization [facility] Address [address] [place] [address] Phone Care Team Providers Care Detective Chief Name Role Phone Phill Banuelos MD Primary Care Provider [phone] Allergies Active Allergy Reactions Criticality Noted Date [...] 10.1 8.7 - 10.7 mg/dL eGFR Non-Afr Hong Konger 48 Magnesium 1.6 1.6 - 2.4 Hemoglobin A1C 11.5(A) 4.0 - 6.0 01/21/2022 [facility] Provider LAB BLOOD ORDERABLES Amarilis l Result from Last 3 Months or Most Recently Relevant to Health Maintenance Insurance Medicaid Medicaid [facility] [place] [address] Care Teams Detective Chief Relationship Specialty Start Date End Date Phill Banuelos MD [address] [place] [address] [id number] [place], [place] PCP - General Internal Medicine 04/26/21
--- OUTSIDE RECORDS SUMMARY | 2025-01-18 14:24 | XMS_ITS | Clinical Summary ---
Author Organization [facility] Address [address] [place] [address] Care Team Providers Care Shrimp Peeler Name Role Phone Unavailable Primary Care Provider [...] Type Department Care Team Description 11/25/2024 Telephone [facility] Heart & Vascular [facility] - Cardiology Clinic [address] [place], [place] [address]eat [place] [address] [place] [address] Maritza Nunes MA Appointment ([facility] FOLLOW UP) 11/16/2024 4:01 PM EDT - 11/16/2024 5:29 PM EDT Surgery [facility] Heart & Vascular [place] [facility] - Cardiac Catheterization Laboratory [address] [place] [phone] Carlos Herman MD CORONARY ANGIO W/LV+LT/RT CATH 11/10/2024 6:20 AM EDT - 11/18/2024 11:32 AM EDT Hospital Encounter [facility] [address] [place] [address] Satnam Silva MD Amja, MD Hui Killian, MD Miguel Payan, MD Srinivasan Lim, MD Valerie Randle, MD Neil Acute respiratory failure (HCC) (Primary Dx); Cardiac arrest (HCC); Cardiomyopathy (HCC); Shock (HCC); Indwelling catheter present on admission; Left bundle branch block (LBBB) Discharge Disposition: Home or Self Care 11/10/2024 6:15 AM EDT Ancillary Procedure [facility] Radiology [address] [place] [phone] Provider, File Room 11/10/2024 6:10 AM EDT Ancillary Procedure [facility] Radiology [address] [place] [phone] Provider, File Room 11/10/2024 5:58 AM EDT - 11/10/2024 6:19 AM EDT Hospital Encounter [facility] [address] [place] [phone] Forest Henry MD Discharge Disposition: Home or Self Care 11/10/2024 Travel from Last 3 Months Social History Tobacco Use Types Packs/Day Years Used Date Smoking Tobacco: Never Assessed [facility] Utilities Answer Date Recorded In the past 12 months has [address] [employer] [employer], [employer], or water [employer] threatened to shut off services in your [...] any time in the past 12 m [facility], were you homeless or living in a care home (including now)? Patient unable to answer 11/12/2024 [...] - 99 mg/dL 11/17/2024 11:56 AM T [facility] Comment:Fasting: <100 mg/dL, Non-Fasting: <200 mg/dL (ADA 2004) Blood Urea Nitrogen (BUN) 32(H) 8 - 21 mg/dL 11/17/2024 11:56 AM [facility] Creatinine 1.2(H) 0.4 - 1.1 mg/dL 11/17/2024 11:56 AM [facility] eGFR 54(L) >59 11/17/2024 11:56 AM [facility] Comment:CKD-EPI (2020) in mL /min/1.73 sq meters. Sodium 137 136 - 145 mmol/L 11/17/2024 11:56 AM [facility] Potassium 3.9 3.4 - 5.3 mmol/L 11/17/2024 11:56 AM [facility] Chloride 102 98 - 107 mmol/L 11/17/2024 11:56 AM [facility] CO2 20(L) 22 - 33 mmol/L 11/17/2024 11:56 AM [facility] Anion Gap 15 7 - 17 11/17/2024 11:56 AM [facility] Calcium 9.6 8.7 - 10.5 mg/dL 11/17/2024 11:56 AM [facility] BUN/Creatinine Ratio 27(H) 10.0 - 25.0 Ratio 11/17/2024 11:56 AM [facility] Blood Blood specimen / Unknown 11/17/2024 10:32 AM EDT 11/17/2024 11:22 AM EDT Yung Giraldo MD LAB BLOOD ORDERABLES [place] [address], [address] [place] [address] * (ABNORMAL) Complete Blood Count, with Differential (11/17/2024 8:32 AM EDT) Only the most recent of4 resultswithin the time period is included. White Blood Cell Count 7.1 4.0 - 11.0 Thou/uL 11/17/2024 10:02 AM [facility] Platelet Count 286 150 - 450 Thou/uL 11/17/2024 10:02 AM [facility] Hemoglobin 9.0(L) 11.7 - 15.7 g/dL 11/17/2024 10:02 AM [facility] Hematocrit 29.2(L) 35.0 - 47.0 % 11/17/2024 10:02 AM [facility] Red Blood Cell Count 3.52(L) 4.00 - 5.40 Mil/uL 11/17/2024 10:02 AM [facility] MCV 83 80 - 100 fL 11/17/2024 10:02 AM [facility] MCH 25.6(L) 27.0 - 31.0 pg 11/17/2024 10:02 AM [facility] MCHC 30.8 30.0 - 36.0 g/dL 11/17/2024 10:02 AM [facility] RDW 14.2 11.5 - 14.5 % 11/17/2024 10:02 AM [facility] MPV 9.9 7.5 - 12.5 fL 11/17/2024 10:02 AM [facility] nRBC 0.3(H) 0.0 - 0.1 /100 WBC 11/17/2024 10:02 AM [facility] nRBC, Absolute 0.02 0.00 - 0.02 Thou/uL 11/17/2024 10:02 AM [facility] Myelocytes 1 % 11/17/2024 10:35 AM [facility] Metamyelocytes 3 % 11/17/2024 10:35 AM [facility] Bands Man 1 % 11/17/2024 10:35 AM [facility] Neutrophils Man 69 % 10:35 AM [facility] Comment:Hypersegmented neutr ophils present. Lymphocytes Man 20 % 10:35 AM EDT [facility] Monocytes Man 6 % [facility] Myelocytes 0.1(H) 0 Thou/uL 11/17/2024 10:35 AM [facility] Abs Metamyelocytes 0.2(H) 0 Thou/uL 2024 10:[facility] Abs Neutrophils Count (ANC) 5.0 2.0 - 7.5 Thou/uL 11/17/2024 10:35 [facility] Abs Lymphocytes Man 1.4(L) 1.5 - 4.5 Thou/uL 11/17/2024 10:35 [facility] Abs Monocytes Man 0.4 0.2 - 1.5 Thou/uL 11/17/2024 10:35 [facility] Normochromic Present 11/17/2024 10:35 AM [facility] Normocytic Present 11/17/2024 10:35 AM [facility] Blood Blood specimen / Unknown 11/17/2024 8:32 AM EDT 11/17/2024 9:43 AM EDT Neil Padilla MD LAB BLOOD ORDERAB[place] [address], [place] [address] * Heparin Assay (Anti Xa) (11/17/2024 8:32 AM EDT) Only the most recent of9 resultswithin the time period is included. Anti Xa 0.27 IU/mL 11/17/2024 10:17 AM [facility] Comment: (NOTE) Heparin Thromboembolic/Standard/Full Dose Protocol: [...] IV HEPARIN, UNFRACTIONATED 11/17/2024 4:33 AM EDT [facility] Blood Blood specimen / Unknown 11/17/2024 8:32 AM EDT 11/17/2024 9:41 AM EDT us Srinivasan Mattson MD LAB BLOOD ORDERABLES Final Result [address] [address], [address] [address] * CC CORANGIO +LV+L/R CATH (11/16/2024 5:10 PM EDT) Anatomical Region Laterality Modality Radiographic Sandrita ging Narrative 11/16/2024 5:30 PM EDT Table formatting from the original result was not included. Images from the original result were not included. [facility] Heart & Vascular [place] [facility] - Cardiac Catheterization Laboratory PATIENT DEMOGRAPHIC INFORMATION Name: Marli Hanna : 1970 54 y.o. Sex: female Gender: female Procedure Date: 11/16/2024 Referring Physician: Yung Giraldo Referring Pin Sorter And Bagger: Nan Dietz PCP: No primary care provider [...] moderately elevated LVEDP (23-25 mmHg) PROCEDURE DETAILS Phlebotomy Specialist: Carlos Herman MD Fellow: None Ctc Operator(s): none Indications for Procedure: ?? CAD and heart failure CLINICAL HISTORY 54-year-old female with a history of type 2 diabetes, hypertension, hyperlipidemia, with recent admission in September to [facility] after being transferred from [facility] for respiratory failure requiring intubation. ??An echo [...] patient. ??Risks including but not limited to WA, stroke, bleeding/vascular complications, emergency cardiac surgery, adverse [...] anatomy for symptom relief, reduction in recurrent WA and mortality was discussed with the patient. ??The alternative of not proceeding with cath and medical therapy alone or additional noninvasive testing was discussed with the patient. ??She voiced understanding wishes to proceed ASA class III Mallampati: 1 PROCEDURE Venous Access: Ultrasound-guided left common femoral vein with micropuncture kit--(right antecubital/brachial veins appear sclerotic and/or chronically thrombosed in the antecubital fossa) 5 Burmese [place] sheath placed in L CFV Arterial Access: Ultrasound-guided right radial artery with 6 Burmese slender glide sheath Diagnostic catheters: 5 Burmese balloontipped PA catheter, 5 Burmese JR4, 5 Burmese JL 3.5 Final contrast: 19 mL Hemostasis: Manual compression for the venous access site, TR band for the radial access site with 12 cc of air. ??Patent hemostasis documented by plethysmography Complications: None PROCEDURE FINDINGS Tracings available in [employer] log report Pressures Site ?? RA 9 [...] this patient that I request from a [facility] PA/DRAPERY SEAMSTRESS/fellow/staff member. 11/16/2024 ??5:25 PM Coronary Findings Diagnostic [...] O2 Saturation (AVOX) (11/16/2024 4:39 PM EDT) [facility] SVC 61.9 60 - 75 % RA 55.6(A) 60 - 75 % PA 52.5(A) 60 - 75 % PCW 85.8(A) 93 - 99 % AO 92.1(A) 95 - 99 % Lot Number [id number] [employer] [place] [employer] Pass Blood 11/16/2024 4:39 PM EDT Carlos Herman MD POINT OF CARE TEST ORDERABLES Fi nal Result * (ABNORMAL) COMPLETE BLOOD COUNT, WITHOUT DIFFERENTIAL (11/16/2024 7:50 AM EDT) Only the most recent of6 resultswithin the time period is included. [facility] White Blood Cell Count 7.7 4.0 - 11.0 Thou/uL 11/16/2024 8:52 AM EDT [facility] Platelet Count 300 150 - 450 Thou/uL 11/16/2024 8:52 AM EDT [facility] Hemoglobin 9.4(L) 11.7 - 15.7 g/dL 11/16/2024 8:52 AM EDT [facility] Hematocrit 30.1(L) 35.0 - 47.0 % 11/16/2024 8:52 AM EDT [facility] Red Blood Cell Count 3.72(L) 4.00 - 5.40 Mil/uL 11/16/2024 8:52 AM EDT [facility] MCV 81 80 - 100 fL 11/16/2024 8:52 AM [facility] MCH 25.3(L) 27.0 - 31.0 pg 11/16/2024 8:52 AM [facility] MCHC 31.2 30.0 - 36.0 g/dL 11/16/2024 8:52 AM T [facility] RDW 13.8 11.5 - 14.5 % 11/16/2024 8:52 AM [facility] MPV 9.7 7.5 - 12.5 fL 11/16/2024 8:52 AM [facility] nRBC 0.3(H) 0.0 - 0.1 /100 WBC 11/16/2024 8:52 AM [facility] nRBC, Absolute 0.02 0.00 - 0.02 Thou/uL 11/16/2024 8:52 AM T [facility] Blood Blood specimen / Unknown 11/16/2024 7:50 AM EDT 11/16/2024 8:31 AM EDT us Neil Padilla MD LAB BLOOD ORDERABLES Final Resul t Performing Organization Address [facility] [place] [address], [place] [address] * MAGNESIUM (11/16/2024 7:50 AM EDT) Only the most recent of10 resultswithin the time period is included. Magnesium 2.1 1.6 - 2.7 mg/dL 11/16/2024 9:09 AM EDT [facility] Blood Blood specimen / Unknown 11/16/2024 7:50 AM EDT 11/16/2024 8:31 AM EDT us Neil Padilla MD LAB BLOOD ORDERABLES Final Resul t [address] [address], [address] [address] * (ABNORMAL) Partial Thromboplastin Time (PTT) (11/15/2024 7:28 PM EDT) Only the most recent of2 resultswithin the time period is included. Anticoagulant IV HEPARIN, UNFRACTIONATED 11/15/2024 6:52 PM EDT [facility] Partial Thromboplastin Time (PTT) 47(H) 25 - 36 seconds 11/15/2024 8:11 PM EDT [facility] Blood Blood specimen / Unknown 11/15/2024 7:28 PM EDT 11/15/2024 7:47 PM EDT us Neil Padilla MD LAB BLOOD ORDERABLES Final Resul t Performing Organization Address [facility] [place] [address], [address] [address] * Protime-INR (11/15/2024 7:28 PM EDT) Only the most recent of3 resultswithin the time period is included. Anticoagulant IV HEPARIN, UNFRACTIONATED 11/15/2024 6:52 PM EDT [facility] Prothrombin Time (PT) 12.3 10.0 - 13.5 seconds 11/15/2024 8:11 PM EDT [facility] INR 1.1 11/15/2024 8:11 PM EDT [facility] Comment:INR Therapeutic Rang es: Standard dose anticoagulant 2.0 to 3.0, High dose anticoagulant 2.5-3.5. Blood Blood specimen / Unknown 11/15/2024 7:28 PM EDT 11/15/2024 7:47 PM EDT us Neil Padilla MD LAB BLOOD ORDERABLES Final Resul t Performing Organization Address City/[facility] Co de Phone Number [address] [address], [address] [address] * Phosphorus (11/14/2024 6:50 AM EDT) Only the most recent of8 resultswithin the time period is included. Phosphorus 4.2 2.7 - 4.5 mg/dL 11/14/2024 8:35 AM EDT [facility] Blood Blood specimen / Unknown 11/14/2024 6:50 AM EDT 11/14/2024 7:16 AM EDT us Neil Padilla MD LAB BLOOD ORDERABLES Final Resul t [address] [address], [address] [address] * US Renal (11/13/2024 11:06 PM EDT) [...] resultswithin the time period is included. Pathologist [facility] Systolic BP 114 mmHg EKG [facility] Diastolic BP 51 mmHg EKG [facility] Ventricular rate 96 BPM EKG [facility] Atrial rate 96 BPM EKG [facility] P-R interval 150 ms EKG [facility] QRS duration 138 ms EKG [facility] Q-T interval 398 [facility] QTC calculation (Bazett) 502 ms EKG [facility] P axis 31 degrees EKG [facility] R axis 43 degrees EKG [facility] T axis -11 degrees [facility] 11/13/2024 8:07 AM EDT Narrative EKG [facility] - 11/13/2024 12:36 PM EDT Sinus rhythm with frequent Premature ventricular complexes Non-specific intra-ventricular conduction block Possible Inferior infarct , age undetermined Possible Anterolateral infarct (cited on or before 10-Nov-2024) Abnormal ECG When compared with ECG of 10-Nov-2024 13:32, Premature ventricular complexes are now Present Confirmed by MD Amador Mohamad ([id number]) on 11/13/2024 12:36:40 PM Procedure Note Bob Amador MD - 11/13/2024 Sinus rhythm with frequent Premature ventricular complexes Non-specific intra-ventricular conduction block Possible Inferior infarct , age undetermined Possible Anterolateral infarct (cited on or before 10-Nov-2024) Abnormal ECG When compared with ECG of 10-Nov-2024 13:32, Premature ventricular complexes are now Present Confirmed by MD Amador Mohamad ([id number]) on 11/13/2024 12:36:40 PM Heather Plascencia PA-C ECG ORDERABLES Final Result EKG [facility] * (ABNORMAL) Hemoglobin A1c with Estimated Average Glucose (Routine) (11/12/2024 11:50 PM EDT) [facility] Hemoglobin A1C 6.0(H) <5.7 % 11/13/2024 1:49 AM EDT [facility] Comment: A1c% ? Interpretation 5.7 - 6.0 ?Increase risk of diabetes 6.1 - 6.4 ?Higher risk of diabetes > or = 6.5 ?? Consistent with diabetes Diabetes Care, 33(Supp 1):S1-S61, 2010 Estimated Average Glucose 126 mg/dL 11/13/2024 1:49 AM T [facility] Blood Blood specimen / Unknown 11/12/2024 11:50 PM EDT 11/13/2024 12:01 AM EDT Elinor FONTANA LAB BLOOD ORDERABLES [place] [address], [place] [address] * (ABNORMAL) Blood Gas with Cooximetry, Arterial (11/12/2024 10:15 AM EDT) Only the most recent of3 resultswithin the time period is included. [facility] Respiratory Info VENT 40% 11/13/19 25 10:16 AM EDT [facility] pH, Arterial 7.35 7.35 - 7.45 11/12/2024 10:37 AM EDT [facility] pCO2, Arterial 42 32 - 45 mmHG 11/12/2024 10:37 AM EDT [facility] pO2, Arterial 78 75 - 95 mmHG 11/12/2024 10:37 AM EDT [facility] CO2, Total 24 22 - 28 mmol/L 11/12/2024 10:37 AM EDT [facility] P/F Ratio 195 11/12/2024 10:37 AM EDT [facility] Comment:P/F < 300 or < 200: question ALI or ARDS. Base Deficiency 2.5 mmol/L 10:37 AM T [facility] Comment:Reference Range: Neg ative 2 to Positive 3 Hemogloblin, Total 6.1(L) 11.7 - 15.7 g/dL 11/12/2024 10:37 AM [facility] O2 Saturation, Arterial 96.2 94 - 97 % 11/12/2024 10:37 AM [facility] Carboxyhemoglobin 1.5 0.0 - 2.0 % 11/12/2024 10:37 AM [facility] Methemoglobin 0.5 0.4 - 1.5 % 11/12/2024 10:37 AM [facility] O2 Content, Arterial 5.8(L) 15.7 - 21.6 mL/dL 11/12/2024 10:37 AM [facility] Blood Blood specimen / Unknown 11/12/2024 10:15 AM EDT 11/12/2024 10:29 AM EDT Elinor FONTANA LAB BLOOD ORDERABLES [place] [address], [address] [address] * (ABNORMAL) Iron and Total Iron Binding Capacity (11/11/2024 11:24 AM EDT) Iron 16(L) 59 - 151 ug/dL 11/11/2024 1:42 PM EDT [facility] UIBC 209 112 - 346 ug/dL 11/11/2024 1:42 PM EDT [facility] Total Iron Binding Capacity 225 100 - 400 ug/dL 11/11/2024 1:42 PM EDT [facility] Iron Sat 7(L) 20 - 50 % 11/11/2024 1:42 PM EDT [facility] Blood Blood specimen / Unknown 11/11/2024 11:24 AM EDT 11/11/2024 1:05 PM EDT Elinor FONTANA LAB BLOOD ORDERABLES Final Result [address] [address], [place] [address] * HIV 1/2 Ag/Ab CMIA Reflex to Confirmation (11/11/2024 11:24 AM EDT) HIV 1/2 Ag/Ab CMIA Nonreactive Nonreactive 11/12/2024 10:22 AM EDT [facility] Comment: Results show no evidence [...] Elinor FONTANA LAB BLOOD ORDERABLES Final Result [facility] [address] [place] [address], * (ABNORMAL) Hemoglobin and Hematocrit (11/11/2024 11:24 AM EDT) Hematocrit 28.6(L) 35.0 - 47.0 % 11/11/2024 1:13 PM EDT [facility] Hemoglobin 8.8(L) 11.7 - 15.7 g/dL 11/11/2024 1:13 PM EDT [facility] Blood Blood specimen / Unknown 11/11/2024 11:24 AM EDT 11/11/2024 1:05 PM EDT Elinor FONTANA LAB BLOOD ORDERABLES Final Result [address] [address], [address] [address] * (ABNORMAL) Transferrin (11/11/2024 11:24 AM EDT) Transferrin 189(L) 200 - 360 mg/dL 11/11/2024 1:42 PM EDT [facility] Blood Blood specimen / Unknown 11/11/2024 11:24 AM EDT 11/11/2024 1:05 PM EDT Elinor FONTANA LAB BLOOD ORDERABLES Final Result Performing Organization Address City/[facility]/[place]IP [place] [address], [place] [address] * Ferritin (11/11/2024 11:24 AM EDT) Ferritin 114 30 - 400 ug/L 11/11/2024 1:42 PM EDT [facility] Blood Blood specimen / Unknown 11/11/2024 11:24 AM EDT 11/11/2024 1:05 PM EDT Elinor FONTANA LAB BLOOD ORDERABLES Final Result Performing Organization Address [facility] Co de Phone Number [address] [address], [place] [address] * VAS VENOUS DUPLEX LEG (DVT)-BILATERAL (11/11/2024 11:21 AM EDT) Anatomical Region Laterality Modality Ultrasound 11/11/2024 9:55 AM EDT Narrative 11/11/2024 12:51 PM EDT Table formatting from the original result was not included. ?? Department: [facility] Patient: [id number] (MARLI HANNA) ?? Patient Location: ..[place] [address].[facility] CPT Code: 20755 ICD-9: ?? Referring Physician: ANGIE BIOLO Impression [...] Note Mihai Vicente MD - 11/11/2024 Department: [facility] Patient: [id number] (MARIL HANNA) Patient Location: ..[place] [address] CPT Code: 14760 ICD-9: Referring Physician: ANGIE CASAS Impression Critical [...] coiled up enteric tube. us Cindy FONTANA [facility] OR[facility] ERABLES Final Result * (ABNORMAL) HEPATIC FUNCTION PANEL (11/11/2024 12:01 AM EDT) Alkaline Phosphatase 96 32 - 122 U/L 11/11/2024 12:48 AM EDT [facility] Aspartate Aminotrans (AST) 36 10 - 50 U/L 11/11/2024 12:48 AM EDT [facility] Alanine Aminotrans (ALT) 49 10 - 50 U/L 11/11/2024 12:48 AM EDT [facility] Bilirubin, Total 0.8 0.2 - 1.0 mg/dL 11/11/2024 12:48 AM EDT [facility] Protein, Total 7.4 6.3 - 8.3 g/dL 11/11/2024 12:48 AM EDT [facility] Albumin 3.5 3.5 - 5.0 g/dL 11/11/2024 12:48 AM T [facility] Bilirubin, Direct 0.3(H) 0 - 0.2 mg/dL 11/11/2024 12:48 AM EDT [facility] Globulin 3.9 1.5 - 3.9 g/dL 11/11/2024 12:48 AM T [facility] Albumin/Globulin Ratio 0.9(L) 1.0 - 3.0 Ratio 11/11/2024 12:48 AM T [facility] Blood Blood specimen / Unknown 11/11/2024 12:01 AM EDT 11/11/2024 12:23 AM EDT Oxana Tomas PA-C LAB BLOOD ORDERABLES Final Result Performing Organization Address [facility]/[place] [address], [place] [address] * (ABNORMAL) High Sensitivity Troponin T (Once) (11/10/2024 3:00 PM EDT) Only the most recent of2 resultswithin the time period is included. High Sensitivity Troponin T 70(HH) <15 ng/L 11/10/2024 4:03 PM EDT [facility] Comment:Recurring Critical R esult. Previously phoned. Delta (Change) 9(H) <3 11/10/2024 4:03 PM EDT [facility] Comment:Decreased Blood Blood specimen / Unknown 11/10/2024 3:00 PM EDT 11/10/2024 3:22 PM EDT us Angie Sheth PA-C LAB BLOOD ORDERABLES Final Re sult Performing Organization Address City/[facility]/[place] [address], [address] [address] * Respiratory Culture (aerobic and gram stain) (11/10/2024 2:00 PM EDT) Gram stain suggestive of Many neutrophils No squamous cells Mixed normal jeramie 11/10/2024 3:55 PM EDT [facility] Culture Negative after 2 days 11/12/2024 11:35 AM EDT [facility] Sputum Specimen from trachea / Unknown 11/10/2024 2:00 PM EDT 11/10/2024 3:04 PM EDT Comment:Sputum Oxana Tomas PA-C MICROBIOLOGY - GENERAL ORDE RABLES Final Result Performing Organization Address [facility]/ZIP Co de Phone Number [facility] [address] [place] [address], [place] * (ABNORMAL) Legionella & Streptococcus Pneumoniae Antigen, Urine (11/10/2024 2:00 PM EDT) Legionella Antigen EIA, Urine Presumptive Negative Presumptive Negative 11/11/2024 9:31 AM EDT [facility] Comment: Presumptive Negative for L.pneumophila [...] Positive(A) Presumptive Negative 11/11/2024 9:31 AM EDT [facility] Comment:Presumptive Positive for Pneumococcal Pneumonia, suggesting current or past infection. Urine Urine specimen / Unknown 11/10/2024 2:00 PM EDT 11/10/2024 2:33 PM EDT Oxana Tomas PA-C URINE ORDERABLES Final Resu lt Performing Organization Address [facility]/ZIP Co de Phone Number [facility] [address] [place] [address], [place] * MRSA PCR Screen, Qualitative (11/10/2024 2:00 PM EDT) MRSA Result Not Detected Not Detected 4:06 PM EDT [facility] Comment:Performed by the Xpe rt MRSA NxG Assay Swab, Anterior Nares Specimen from nose / Unknown 11/10/2024 2:00 PM EDT 11/10/2024 2:35 PM EDT Oxana Tomas PA-C MICROBIOLOGY - GENERAL FANNIE BURNETTE Final Result Performing Organization Address [facility] [place] [address], [address] [address] * Urea Nitrogen, Urine, Random (11/10/2024 2:00 PM EDT) Urea Nitrogen, Random Urine 175 mg/dL 11/10/2024 3:02 PM EDT [facility] Comment:Reference range not established for random specimen. Urine Urine specimen / Unknown 11/10/2024 2:00 PM EDT 11/10/2024 2:33 PM EDT Amalia FONTANA-C URINE ORDERABLES Final Resul t Performing Organization Address [facility] Co de Phone Number [address] [address], [address] [address] * Sodium, Urine, Random (11/10/2024 2:00 PM EDT) Sodium, Urine Random 108 mmol/L 11/10/2024 3:02 PM EDT [facility] Comment:Reference range not established for random specimen. Urine Urine specimen / Unknown 11/10/2024 2:00 PM EDT 11/10/2024 2:33 PM EDT Amalia Tan PA-C URINE ORDERABLES Final Resul t Performing Organization Address City/[facility]/ZIP Co de Phone Number [address] [address], [address] [address] * Creatinine, Urine, Random (11/10/2024 2:00 PM EDT) Creatinine, Urine, Random 19 mg/dL 11/10/2024 3:02 PM EDT [facility] Comment:Reference range not established for random specimen. Urine Urine specimen / Unknown 11/10/2024 2:00 PM EDT 11/10/2024 2:33 PM EDT us Amalia Tan PA-C URINE ORDERABLES Final Resul t [address] [address], [address] [address] * XR Abdomen 1 view (11/10/2024 9:52 [...] Detected Not Detected 11/10/2024 12:41 PM EDT [facility] Coronavirus 229E Not Detected Not Detected 11/10[facility]2024 [facility] HKU1 Not Detected Not Detected 11/10/2024 12:41 PM [facility] Coronavirus NL63 Not Detected Not Detected 11/10/2024 12:41 PM [facility] Coronavirus OC43 Not Detected Not Detected 11/10/2024 12:41 PM [facility] Human Metapneumovirus Not Detected Not Detected 11/10/2024 12:41 PM [facility] Rhinovirus/Enterov irus Not Detected Not Detected 11/10/2024 12:41 PM [facility] Influenza A Not Detected Not Detected 11/10/2024 12:41 PM [facility] Influenza B Not Detected Not Detected 11/10/2024 12:41 PM [facility] Parainfluenza 1 (PIV1) Not Detected Not Detected 11/10/2024 12:41 PM T [facility] Parainfluenza 2 (PIV2) Not Detected Not Detected 11/10/2024 12:41 PM T [facility] Parainfluenza 3 (PIV3) Not Detected Not Detected 11/10/2024 12:41 PM T [facility] Parainfluenza 4 (PIV4) Not Detected Not Detected 11/10/2024 12:41 PM [facility] Respiratory Syncytial Virus Not Detected Not Detected 11/10/2024 12:41 PM T [facility] Bordetella pertussis Not Detected Not Detected 11/10/2024 12:41 PM [facility] Chlamydophila pneumoniae Not Detected Not Detected 11/10/2024 12:41 PM EDT [facility] Mycoplasma pneumoniae Not Detected Not Detected 11/10/2024 12:41 PM EDT [facility] Bordetella parapertussis Not Detected Not Detected 11/10/2024 12:41 PM EDT [facility] SARS CoV 2 Not Detected Not Detected 11/10/2024 12:41 PM EDT [facility] Swab, Nasopharyngeal Nasopharyngeal swab / Unknown 11/10/2024 9:09 AM EDT 11/10/2024 9:22 AM EDT Oxana Tomas PA-C MICROBIOLOGY - GENERAL ORDE RABLES Final Result Performing Organization Address City/[facility]/ZIP Co de Phone Number [facility] [address] [place] [address], * Blood Culture (11/10/2024 9:04 AM EDT) Only the most recent of2 resultswithin the time period is included. Pathologist [facility] Culture Sterile after 5 days 11/15/2024 7:59 AM EDT [facility] Blood Blood specimen / Unknown 11/10/2024 9:04 AM EDT 11/10/2024 9:36 AM EDT Comment:Blood Oxana Tomas PA-C LAB BLOOD ORDERABLES Final Result Performing Organization Address City/[facility]/ZIP Co de Phone Number [facility] [address] [place] [address], * (ABNORMAL) Blood Gas with Cooximetry, Venous (11/10/2024 8:56 AM EDT) Respiratory Info VENT 100% 11/11/19 8:38 AM EDT [facility] Blood PH 7.24(L) 7.33 - 7.43 11/10/2024 9:22 AM EDT [facility] Venous pCO2 51(H) 35 - 50 mmHG 11/10/2024 9:22 AM EDT [facility] Venous pO2 65(H) 0 - 60 mmHG 11/10/2024 9:22 AM [facility] Venous Total CO2 23 23 - 29 mmol/L 11/10/2024 9:22 AM [facility] Base Deficiency 5.7 mmol/L 9:22 AM [facility] Comment:Reference Range: Neg ative 2 to Positive 3 Hemogloblin, Total 6.3(L) 11.7 - 15.7 g/dL 11/10/2024 9:22 AM [facility] O2 Saturation, Venous 91.1 % 08/2025 9:22 AM [facility] Carboxyhemoglobin 2.2(H) 0.0 - 2.0 % 11/10/2024 9:22 AM [facility] Methemoglobin 0.7 0.4 - 1.5 % 11/10/2024 9:22 AM [facility] Venous O2 Content 5.6(L) 7.2 - 17.2 mL/dL 11/10/2024 9:22 AM [facility] Blood Blood specimen / Unknown 11/10/2024 8:56 AM EDT 11/10/2024 9:17 AM EDT Oxana Tomas PA-C LAB BLOOD ORDERABLES Final Result Performing Organization Address City/State/[facility] [place] [address], [place] [address] * (ABNORMAL) PROCALCITONIN (11/10/2024 6:42 AM EDT) Procalcitonin 1.14(H) <0.09 ng/mL 11/10/2024 8:53 AM [facility] Comment: (NOTE) ?Procalcitonin (PCT) Guided Antibiotic [...] MD LAB BLOOD ORDERABLES Final Re sult [address] [address], [address] [address] * (ABNORMAL) proBNP, N-terminal (11/10/2024 6:42 AM EDT) proBNP, N-terminal 2,385(H) <125 pg/mL 11/10/2024 8:53 AM EDT [facility] 11/10/2024 6:42 AM EDT 11/10/2024 7:15 AM EDT us Satnam Silva MD LAB BLOOD ORDERABLES [place] [address], [place] [address] * (ABNORMAL) Triglycerides (11/10/2024 6:42 AM EDT) Pathologist [facility] Triglycerides 210(H) <150 mg/dL 11/10/2024 7:41 AM EDT [facility] Blood Blood specimen / Unknown 11/10/2024 6:42 AM EDT 11/10/2024 7:15 AM EDT us Satnam Silva MD LAB BLOOD ORDERABLES Final Re sult Performing Organization Address [facility] Co de Phone Number [address] [address], [address] [address] * TSH, HIGHLY SENSITIVE (11/10/2024 6:42 AM EDT) TSH, Highly Sensitive 2.76 0.27 - 4.20 mIU/L 11/10/2024 8:53 AM EDT [facility] 11/10/2024 6:42 AM EDT 11/10/2024 7:15 AM EDT us Satnam Silva MD LAB BLOOD ORDERABLES Final Re sult [address] [address], [address] [address] * Lactic Acid, Plasma (STAT) (11/10/2024 6:42 AM EDT) Lactic Acid 1.3 0.5 - 1.9 mmol/L 11/10/2024 7:26 AM EDT [facility] Blood Blood specimen / Unknown 11/10/2024 6:42 AM EDT 11/10/2024 6:59 AM EDT us Satnam Silva MD LAB BLOOD ORDERABLES [place] [address], [place] [address] * (ABNORMAL) Comprehensive metabolic panel (11/10/2024 6:42 AM EDT) Glucose 217(H) 65 - 99 mg/dL 11/10/2024 7:41 AM [facility] Comment:Fasting: <100 mg/dL, Non-Fasting: <200 mg/dL (ADA 2004) Blood Urea Nitrogen (BUN) 31(H) 8 - 21 mg/dL 11/10/2024 7:41 AM [facility] Creatinine 1.8(H) 0.4 - 1.1 mg/dL 11/10/2024 7:41 AM [facility] eGFR 33(L) >59 11/10/2024 7:41 AM [facility] Comment:CKD-EPI (2020) in mL /min/1.73 sq meters. Sodium 137 136 - 145 mmol/L 11/10/2024 7:41 AM [facility] Potassium 4.0 3.4 - 5.3 mmol/L 11/10/2024 7:41 AM [facility] Chloride 104 98 - 107 mmol/L 11/10/2024 7:41 AM [facility] CO2 19(L) 22 - 33 mmol/L 11/10/2024 7:41 AM [facility] Calcium 8.5(L) 8.7 - 10.5 mg/dL 11/10/2024 7:41 AM [facility] Alkaline Phosphatase 109 32 - 122 U/L 11/10/2024 7:41 AM [facility] Aspartate Aminotrans (AST) 46 10 - 50 U/L 11/10/2024 7:41 AM [facility] Alanine Aminotrans (ALT) 54(H) 10 - 50 U/L 11/10/2024 7:41 AM [facility] Bilirubin, Total 0.6 0.2 - 1.0 mg/dL 11/10/2024 7:41 AM [facility] Protein, Total 7.1 6.3 - 8.3 g/dL 11/10/2024 7:41 AM [facility] Albumin 3.4(L) 3.5 - 5.0 g/dL 11/10/2024 7:41 AM [facility] BUN/Creatinine Ratio 17 10.0 - 25.0 Ratio 11/10/2024 7:41 AM [facility] Globulin 3.7 1.5 - 3.9 g/dL 11/10/2024 7:41 AM [facility] Albumin/Globulin Ratio 0.9(L) 1.0 - 3.0 Ratio 11/10/2024 7:41 AM [facility] Anion Gap 14 7 - 17 11/10/2024 7:41 AM [facility] Blood Blood specimen / Unknown 11/10/2024 6:42 AM EDT 11/10/2024 7:15 AM EDT us Satnam Silva MD LAB BLOOD ORDERABLES Final Re sult [address] [address], [address] [address] * MAN Archive for reference only CR (11/10/2024 6:15 AM EDT) Only the most recent of2 resultswithin the time period is included. Narrative SYSTEMGENERATED, DOCUMENTATION - 11/10/2024 6:08 AM EDT This order has been auto-finalized and does not contain a result. Heather Plascencia PA-C IMG DIGITIZE FILMS Final Result from Last 3 Months Insurance [facility] Advance Directives * Full Code (Latest Code [...]
--- OUTSIDE RECORDS SUMMARY | 2025-01-18 14:24 | XMS_ITS | Continuity of Care Document ---
Author Organization [facility] ter Address [address] [place] [id number]- Care Team Providers Care Transit Clerk Name Role Phone Mira FONSECA, Heather López Primary Care Physician [facility] [id number] Date(s): 12/21/24 - 01/17/[address] [address]- Encounter Diagnosis Cardiac arrest, cause unspecified(Final) - Unspecified systolic (congestive) heart failure(Final) - Discharge Disposition: A-D/C Home Attending Physician: Jluissa Bunch NP Admitting Physician: Julissa Bunch NP Referring Physician: Julissa Bunch NP Encounter Type: Disch Recurring OP Allergies, Adverse Reactions, Alerts Substance Criticality Severity Reaction Reaction Severity Status shellfish Active Medications aspirin 81 mg oral delayed release tablet 81 mg, By Mouth, Daily, # 30 tablet, Refills 0, Tot. Refills 0, Maintenance, 09/29/24 1:13:00 PM EST, Route to Pharmacy Electronically, [facility], Partial fill upon patient [...] Refills, Maintenance, 09/29/24 1:13:00 PM EST, Tablet, [facility], Partial fill upon patient [...] 1:15:00 PM EST, Route to Pharmacy Electronically, [facility], Partial fill uponpatient request if the prescription is for a schedule II opioid drug., 158, cm, 09/29/24 1:28:00 EST, Height, 98, kg, 09/16/24 2:10:00 EST, Dry Weight Start Date: 09/29/24 Status: Ordered Quantity: 60.0 Unit: tablet Repeat number: 1 Eliquis 5 mg oral tablet 1 tablet = 5 mg, By Mouth, 2 times a day, # 60 tablet, 5 Refills, Maintenance, 12/30/24 12:55:00 PM EDT, Tablet, Partial fill upon patient request if the prescription is for a schedule II opioid drug. Start Date: 12/30/24 Status: Ordered Quantity: 60.0 Unit: tablet Repeat number: 1 Entresto 97 mg-103 mg oral tablet 1 tablet, By Mouth, 2 times a day, # 180 tablet, 3 Refills, Maintenance, 01/04/25 3:55:00 PM EDT, Tablet, [id number], Partial fill upon patient request if the prescription is for a schedule II opioid drug., 1 tablet By Mouth 2 times a day, 154, cm, 01/04/25 15:33:00 EDT, Height, 84, kg, 12/18/24 16:45:00 EDT, Dry Weight Start Date: 01/04/25 Status: Ordered Quantity: 180.0 Unit: tablet Repeat number: 4 famotidine 20 mg oral tablet 20 mg, By Mouth, Daily at bedtime, # 30 tablet, Refills 0, Tot. Refills 0, Maintenance, 09/29/24 1:13:00 PM EST, Route to Pharmacy Electronically, [facility], Partial fill upon patient request if the prescription is for a schedule II opioid drug., 158, cm, 09/29/24 1:28:00 EST, Height,98, kg, 09/16/24 2:10:00 EST, Dry Weight Start Date: 09/29/24 Status: Ordered Quantity: 30.0 Unit: tablet Repeat number: 1 Home Blood Pressure Monitor See Instructions, # 1 each, Maintenance, AUTOMATIC BLOOD PRESSURE MONITOR FOR HTN, 11/10/24 1:20:00 PM EDT, Supply, 158, cm, 11/03/24 9:17:00 EST, Height, 98, kg, 09/16/24 2:10:00 EST, Dry Weight Start Date: 11/10/24 Status: Ordered Quantity: 1.0 Unit: each Repeat number: 1 Indication: Essential (primary) hypertension Jardiance 10 mg oral tablet 1 tablet = 10 mg, By Mouth, Daily in AM, # 30 tablet, 0 Refills, Maintenance, 12/30/24 12:56:00 PM EDT, Tablet, Partial fill upon patient request if the prescription is for a schedule II opioid drug. Start Date: 12/30/24 Status: Ordered Quantity: 30.0 Unit: tablet Repeat number: 1 levothyroxine 0.137 mg oral tablet TAKE 1 TABLET BY MOUTH EVERY DAY Start Date: 09/16/24 Status: Ordered Repeat number: 1 spironolactone 25 mg oral tablet 25 mg, 1, tablet, By Mouth, Daily, # 90 tablet, Refills 3, Tot. Refills 3, Maintenance, 01/04/25 3:56:00 PM EDT, [id number] Partial fill upon patient request if the prescription is for a schedule II opioid drug., 154, cm, 01/04/25 15:33:00 EDT, Height, 84, kg, 12/18/24 16:45:00 EDT, Dry Weight Start Date: 01/04/25 Status: Ordered Quantity: 90.0 Unit: tablet Repeat number: 4 Trulicity Pen 1.5 mg/0.5 mL subcutaneous solution INJECT 1 PEN SUBCUTANEOUSLY ONCE A WEEK Start Date: 09/16/24 Status: Ordered Repeat number: 1 Problem List Condition Confirmation Course Effective Dates Status Health St atus Informant Obese class II Confirmed Active Social History Social History Type Response Smoking Status Never smoker entered on: 05/17/14 Sex Sex Representation Female (finding) Note * Bj Bahena: PERFORM, SIGN, VERIFY Event Display: Cardiac Rehab Note Authored Date: [id number] Patient: MARLI HANNA Age: 54 years Sex: Female : 1970 Associated Diagnoses: None Author: Bj Bahena Patient scheduled for E [employer]IST-D implant with Dr. Patino on 02/16/25 and now rescheduled for new cardiac rehab orientation for 03/15/25. Called patient and confirmed regarding new appointment. * Vanessa Clancy: PERFORM Event Display: Cardiac Rehab Note Authored Date: [id number] I spoke with our patient, Marli Hanna (72), on the phone regarding her future cardiac rehab appointments. Pt reported her office secretary (Julissa Bunch NP) has requested that she hold offon cardiac rehab until she goes to her 01/04 appointment. Pt reported she has appointment with Dr. Alatorre on 01/04 for a HF follow up. Discussed plan with patient: 1. We will discharge pt from our cardiac rehab exercise program as of today (12/31/24). This decision was made due to pt's high risk: multiple cardiac arrests 3 months apart with unclear etiology andno ICD implant. 2. We will follow up with pt with a phone call following her appointment with Dr. Alatorre to determine future care. Pt may be appropriate for cardiac rehab if they receive EP referral and Life Vest/ICD implant. Pt demonstrated understanding of plan. We will plan to call pt if we don't hear from pt following 01/04 to determine future plans for cardiac rehab. JEFFREY Cabello * Event Display: Cardiac Rehab Telemetry Report Authored Date: [id number] Patient Care team information Care Team Personnel Name: Srinivasan Juarez RN Position: S RN Member Role: Primary Care Nurse Name: Melinda Doe RN Position: S RN Member Role: Primary Care Nurse Name: Cassy Plata RN Position: S RN Member Role: Primary Care Nurse Name: Josue Rosas LPN Position: S RN Member Role: Primary Care Nurse Name: Karissa Martinez NP Position: [facility] Associate Professional Member Role: Lifetime Consulting Provider Address: [address] [place], [place] [address] [address] Telecom: Name: Jason Qureshi MD Position: [facility] Renal MD Member Role: Lifetime Consulting Physician Address: [address] [place], [place] [address]E [facility] [address] Telecom: Name: Dylon Whittington DO Position: [facility] Renal MD Member Role: Lifetime Consulting Physician Address: [address] [place], [place] [address]E [facility] [address] Telecom: Name: Oxana Odom RN Position: [facility] RN Member Role: Primary Care Nurse Name: Willian Luo RN Position: S RN Member Role: Primary Care Nurse Name: Kaylee Chan LPN Position: S RN Member Role: Primary Care Nurse Name: Marlon Duarte RN Position: S RN Member Role: Primary Care Nurse Name: Heather Meyers MD Position: Reference Physician Member Role: PCP Address: [address] [place] [id number] Telecom: Name: Susan Neff RN Position: S RN Member Role: Primary Care Nurse Name: Heather Rosas RN Position: S RN Member Role: Primary Care Nurse Name: Roberto Huston RN Position: S RN Member Role: Primary Care Nurse Care Team Related Persons Name: MARLI LUU Name: MARLI LUU Name: BOBBY ARCE Insurance Providers Guarantor name: Health Plan Information #: 1 Payer: [employer] Member Number: [id number] Policy Number: LEENA Group Number: NA Health Plan Information #: 2 Payer: [employer] [facility] Member Number: [id number] Policy Number: NA Group Number: NA
== END 2025-01-18 13:18 | disposition home or self-care (01) ==
LOC: HO.MAMMO 13:17
PROVIDERS: PCP Internal Medicine; Visit Provider Internal Medicine
DX: Z12.31 Encounter for screening mammogram for malignant neoplasm of breast (principal)
CPT/HCPCS: 77063; 77067

== ENCOUNTER → 2025-01-18 13:30 | Outpatient (BNV) | payer OTHER, SELFPAY | PROVIDERS: PCP Internal Medicine; Visit Provider Internal Medicine | DX: Z12.31 Encounter for screening mammogram for malignant neoplasm of breast (principal) | CPT/HCPCS: 77063; 77067 ==

== ENCOUNTER 2025-01-27 13:55 | Outpatient (REF) | payer OTHER, SELFPAY ==
[2025-01-27 14:16] LABS: MANUAL DIFF FLAG NO
[2025-01-27 15:04] LABS: Basophils Percent Auto 0.2 % (0-2); Eosinophils Percent Auto 0.2 % (0-4); Hematocrit 35.3 % (37.0-47.0); Hemoglobin 10.9 g/dl (12.0-16.0); Imm Gran Abs Auto 0.02 X10*3/uL (0.00-0.03); Imm Gran Pct Auto 0.4 % (0.0-0.4); Lymphocytes Absolute Auto 1.6 X10*3/uL (1.2-4.9); Lymphocytes Percent Auto 30.7 % (20-40); Mean Corpuscular HGB Conc 30.9 g/dl (31.0-35.0); Mean Corpuscular Hemoglobin 24.5 pg (27.0-33.0); Mean Corpuscular Volume 79.5 fL (80.0-98.0); Mean Platelet Volume 10.2 fL (9.4-12.3); Monocytes Absolute Auto 0.4 X10*3/uL (0.1-1.2); Monocytes Percent Auto 8.3 % (2-11); Neutrophils Absolute Auto 3.2 x10*3/uL (2.0-8.3); Neutrophils Percent Auto 60.2 % (45-73); Platelet Count 258 X10*3/uL (160-400); Red Blood Count 4.44 X10*6/uL (4.20-5.50); Red Cell Distribution Width 14.5 % (11.0-16.0); White Blood Count 5.3 X10*3/uL (4.8-10.8)
[2025-01-27 15:12] LABS: Estimated Average Glucose 131 mg/dL; Hemoglobin A1C 130.6588 umol/L; Hemoglobin A1c % 6.2 % (<6.0); Total Hemoglobin (HGBA1C) 2925.6726 umol/L
[2025-01-27 15:19] LABS: Appearance Urine Clear; Color Urine Yellow; Glucose Urine UA >=1000 mg/dL (Negative); Leukocyte Esterase Urine Moderate (2+) (Negative); Nitrite Urine Negative (Negative); PH 5.5 (5.0-9.0); Specific Gravity - Urine 1.015 (1.005-1.025); UMIC TRIGGER UA YES; Urine Blood Negative (Negative); Urine Ketones Negative (Negative); Urine Protein 100 (2+) mg/dL (Neg-Trace)
[2025-01-27 15:24] LABS: Bacteria Urine 2+ (None Seen); Hyaline Casts Urine 0-2 /LPF (0-2); RBC Urine 0-2 /HPF (0-2)
[2025-01-27 15:32] LABS: Parathyroid Hormone Intact 65.2 pg/mL (8.7-77.1)
[2025-01-27 15:33] LABS: Alanine Aminotransferase 21 U/L (0-31); Albumin Level 4.2 g/dL (3.5-5.0); Anion Gap 12 (12-20); Aspartate Amino Transferase 25 U/L (5-31); Bilirubin Total 0.8 mg/dL (0.0-1.0); Blood Urea Nitrogen 44 mg/dL (9-16); Calcium 9.9 mg/dL (8.4-10.2); Carbon Dioxide 20 mmol/L (22-29); Chloride 111 mmol/L (96-108); Cholesterol 140 mg/dL (<200); Estimated Glomerular Filt Rate 35; Glucose Random 113 mg/dL (60-115); HDL Cholesterol 27 mg/dL (>40); LDL Cholesterol Calculated 86 mg/dL (<100); Magnesium 2.2 mg/dL (1.6-2.6); Phosphorus 5.2 mg/dL (2.7-4.5); Potassium 4.6 mmol/L (3.3-5.1); Sodium 138 mmol/L (135-145); Total Protein 8.1 g/dL (6.5-8.0); Triglycerides 137 mg/dL (<150)
[2025-01-27 15:54] LABS: TSH reflex Free T4 0.64 uIU/mL (0.32-4.0)
[2025-01-27 16:59] LABS: Alkaline Phosphatase 89 U/L (39-117)
[2025-02-01 15:13] LABS: VITAMIN D (1,25 OH) D3 <8 pg/mL; Vit D (1,25-Dihydroxy) Total <8 pg/mL (18-72); Vitamin D (1,25 OH) D2 <8 pg/mL
== END 2025-01-27 13:56 | disposition home or self-care (01) ==
LOC: HO.LAB 13:55
PROVIDERS: Internal Medicine Hypertension Specialist; Nurse Practitioner Family; PCP Internal Medicine; Visit Provider Internal Medicine
DX: E11.40 Type 2 diabetes mellitus with diabetic neuropathy, unspecified (principal); E11.8 Type 2 diabetes mellitus with unspecified complications; E03.9 Hypothyroidism, unspecified; I10 Essential (primary) hypertension; R80.9 Proteinuria, unspecified; R79.89 Other specified abnormal findings of blood chemistry
CPT/HCPCS: 36415; 80053; 80061; 81001; 82652; 83036; 83735; 83970; 84100; 84443; 85025

== ENCOUNTER 2025-01-28 15:18 | Outpatient (AMB) | payer OTHER, SELFPAY ==
[2025-01-28 13:22] VITALS: BP 130/68; PULSE 74; RESP 16; TEMP 36.2; O2SAT 99; BMI 36.1
--- NOTE | 2025-01-28 13:22 | A.OFFPC_ITS ---
Vital Signs 01/28/25 13:22 Height 5 ft 1 in Weight 86.636 kg BMI 36.1 BP 130/68 Respiration 16 Pulse 74 Pulse Source Pulse Oximeter Temp 97.2 F Temp Source Temporal Artery Scan Pulse Oximetry (%) 99 Oxygen Delivery Method Room Air Intake Visit Reasons: 2 Month F/U Loin Trimmer Required: No Accompanied by: Self / Same As Patient Allergies shellfish derived [SHELLFISH DERIVED] Allergy (Severe, Verified 01/28/25 13:23) ANAPHALAXIS Iodinated Contrast Media [IODINATED CONTRAST MEDIA - IV DYE] Allergy (Unknown, Verified 01/28/25 13:23) CAN NOT HAVE DUE TO SHELLFISH ALLERGY Tobacco use date assessed: 01/28/25 Dental Screening Dental Screen Date: 01/28/25 Did you have a dental visit in the last 12 months?: Yes Did you have a dental problem in the last 6 months where you did not have access to dental care?: No HPI HPI Comments History of Present Illness Details 54-year-old female with history of coron ame artery disease, CHF, CKD stage 3, type 2 diabetes, hypertension, hyperlipidemia, obesity among others presents to the office today for management of chronic conditions. Type 2 diabetes-last A1c 6.2%. Reports significant changes in her diet which is also assess and weight loss. She is compliant with Trulicity 1.5 mg weekly, Jardiance 10 mg daily. Up-to-date with diabetic eye exams. Reports glucose levels around 120 in the morning Hypertension-blood pressure in the office 130/68. Compliant with spironolactone 25 mg, carvedilol 6.25 mg b.i.d.. CKD stage III-slight drop in GFR to 35 with bump in creatinine to 1.55. She is following with Nephrology Hypothyroidism-compliant with levothyroxine. Last TSH 0.64. She has no concerns today's visit. ROS: General: No fevers, malaise, unintentional weight loss HEENT: No blurred vision, diplopia. No sore throat, nasal congestion, rhinorrhea, sinus pain, ear pain Cardiovascular: No chest pain, palpitations, or leg edema Respiratory: No shortness of breath, wheezing, cough GI: No abdominal pain, nausea, vomiting, diarrhea, constipation, melena, hematochezia : No dysuria, hematuria, increased urinary frequency, decreased urinary output MSK: No myalgia, back pain Neuro: No headaches, weakness, paresthesias Skin: No rashes or lesions EXAM: Constitutional - Awake and Alert, No apparent distress Eyes - PERRLA, EOMI Cardiovascular - S1S2, RRR, No edema Respiratory - Normal lung expansion, Normal respiratory effort, No respiratory distress, CTA bilaterally Extremities - no calf tenderness bilaterally, no swelling Skin - Warm/Dry Neurological - Alert & oriented x3 Psychological - Appropriate affect [facility] Medical History Type 2 diabetes mellitus with diabetic neuropathy, unspecified Hypothyroidism Vitamin D deficiency HLD (hyperlipidemia) HTN (hypertension) T2DM (type 2 diabetes mellitus) Surgical History History of cholecystectomy Hx of section Family History Father Hypertension Heart disease Mother Breast cancer Family history of thyroid problem Social History Housing: Apartment Alcohol intake: former Patient Tobacco Use Status: Never used Tobacco e-Cigarette/Vaping Use: Never Used service: No Current occupational status: unemployed Cognitive needs: Yes (cane) Hearing needs: No Vision needs: Yes (rx contacts) Questionnaire PHQ-9 Over the last 2 weeks, how often have you been bothered by any of the following problems? 1. Little interest or pleasure in doing things: not at all 2. Feeling down, depressed, or hopeless: not at all 3. Trouble falling or staying asleep, or sleeping too much: not at all 4. Feeling tired or having little energy: not at all 5. Poor appetite or overeating: not at all 6. Feeling bad about yourself - or that you are a failure or have let yourself or your family down: not at all 7. Trouble concentrating on things, such as reading the newspaper or watching television: not at all 8. Moving or speaking so slowly that other people could have noticed. Or the opposite - being so fidgety or restless that you have been moving around a lot more than usual: not at all 9. Thoughts that you would be better off or of hurting yourself in some way: not at all Total score: 0 Source: Developed by Drs. Rajinder De Paz, Devan Jean and colleagues, with an educational doug from [employer]. Thrive Questionnaire Date Thrive assessed: 01/28/25 I am a: Patient Within the past 12 months, did the food you bought not last and you didn't have the money to get more?: Never true Within the past 12 months, did you worry whether your food would run out before you got money to buy more?: Never true Do you have trouble paying for medicines?: No Do you have trouble getting transportation to medical appointments?: No Do you have trouble paying your heating and electricity bill?: No Do you have trouble taking care of your child, family member or friend?: No Do you have trouble with day-to-day activities such as bathing, preparing meals, shopping, managing finances, etc.?: No Are you currently unemployed and looking for a job?: No Are you interested in more education?: No THRIVE Score: 0 AUDIT C Alcohol Use Questionnaire (AUDIT-C) 1. How often do you have a drink containing alcohol?: Never 3. How often do you have six or more drinks on one occasion?: Never Total Score: 0 NATHANIEL-7 AMB Questionnaire NATHANIEL-7 Date NATHANIEL - 7 assessed: 01/28/25 Feeling nervous, anxious, or on edge: 0 = Not at all Not being able to stop or control worryin = Not at all Worrying too much about different things: 0 = Not at all Trouble relaxin = Not at all Being so restless that it is hard to sit still: 0 = Not at all Becoming easily annoyed or irritable: 0 = Not at all Feeling afraid as if something awful might happen: 0 = Not at all Total NATHANIEL-7 score (0-4 normal; 5-9 mild; 10-14 moderate; 15-21 severe): 0 Source: Developed by Drs. Rajinder De Paz, Devan Jean and colleagues, with an educational doug from [employer]. Physical exam (Primary Care) Vital Signs: Last Vital Signs Temp 97.2 F 01/28/25 13:22 Pulse 74 01/28/25 13:22 Resp 16 01/28/25 13:22 BP 130/68 01/28/25 13:22 Pulse Ox 99 01/28/25 13:22 Oxygen Delivery Method Room Air 01/28/25 13:22 BMI result Body Mass Index 36.1 Tobacco/Smoking Status: Tobacco use Status Tobacco use date assessed 01/28/25 01/28/25 13:26 Patient Tobacco Use Status Never used Tobacco 01/28/25 13:26 e-Cigarette/Vaping Use Never Used 01/28/25 13:26 PHQ-9: PHQ-9 Score PHQ-9: Total score 0 01/28/25 15:38 Thrive Assessment: Date of Thrive Assessment Date Thrive assessed 01/28/25 01/28/25 13:26 Coding Level of Care Code Est Pt Level 4 (24116) Complex EM visit Add On G2211 Diagnoses Type 2 diabetes mellitus with unspecified complications E11.8 Hypothyroidism, unspecified type E03.9 Hypothyroidism type: unspecified Hyperlipidemia, unspecified hyperlipidemia type E78.5 Hyperlipidemia type: unspecified Assessment & Plan Assessment & Plan (1) Type 2 diabetes mellitus with unspecified complications: Code(s): E11.8 - Type 2 diabetes mellitus with unspecified complications Category: Medical Plan: Well controlled with A1c 6.2%. Continue current therapies. Continue annual eye exams and foot exams. Continue with diabetic diet. Hemoglobin A1c ordered to be completed in 3 months. (2) Hypothyroidism: Code(s): E03.9 - Hypothyroidism, unspecified Category: Medical Qualifiers: Hypothyroidism type: unspecified Qualified Code(s): E03.9 - Hypothyroidism, unspecified Plan: Clinically euthyroid with TSH 0.64. Continue current dose levothyroxine. (3) HLD (hyperlipidemia): Code(s): E78.5 - Hyperlipidemia, unspecified Category: Medical Qualifiers: Hyperlipidemia type: unspecified Qualified Code(s): E78.5 - Hyperlipidemia, unspecified Plan Follow-up in the office in 3 months with A1c completed prior to visit. Orders: Orders Hemoglobin A1c 3 Months E11.8 - Type 2 diabetes mellitus with unspecified complications Medications: New ascorbic acid (vitamin C) 250 mg PO DAILY 90 tabs 1RF Refilled blood sugar diagnostic (FreeStyle Lite Strips) As directed twice a day 50 ea 11RF E11.40 - Type 2 diabetes mellitus with diabetic neuropathy, unspecified
== END 2025-01-28 15:44 | disposition home or self-care (01) ==
LOC: HO.HMCHD 15:19
PROVIDERS: PCP Internal Medicine; Visit Provider Internal Medicine
DX: E11.8 Type 2 diabetes mellitus with unspecified complications (principal); E03.9 Hypothyroidism, unspecified; E78.5 Hyperlipidemia, unspecified

== ENCOUNTER → 2025-01-28 15:18 | Outpatient (BNVA) | payer OTHER, SELFPAY | PROVIDERS: PCP Internal Medicine; Visit Provider Internal Medicine | DX: E11.8 Type 2 diabetes mellitus with unspecified complications (principal); E03.9 Hypothyroidism, unspecified; E78.5 Hyperlipidemia, unspecified; I25.10 Atherosclerotic heart disease of native coronary artery without angina pectoris; I13.0 Hypertensive heart and chronic kidney disease with heart failure and stage 1 through stage 4 chronic kidney disease, or unspecified chronic kidney disease; E11.22 Type 2 diabetes mellitus with diabetic chronic kidney disease; N18.30 Chronic kidney disease, stage 3 unspecified; I50.9 Heart failure, unspecified; E66.9 Obesity, unspecified; Z68.36 Body mass index [BMI] 36.0-36.9, adult; Z79.899 Other long term (current) drug therapy | CPT/HCPCS: 99212 ==

== ENCOUNTER 2025-03-01 11:58 | Outpatient (AMB) | payer OTHER, SELFPAY ==
[2025-03-01 12:02] VITALS: BP 110/62; PULSE 77; O2SAT 98; BMI 36.1
--- NOTE | 2025-03-01 12:02 | HO.NEPHOV_ITS ---
Vital Signs 03/01/25 12:02 Height 5 ft 1 in Weight 191 lb BMI 36.1 BP 110/62 Blood Pressure Location Rt brachial Position Sitting Pulse 77 Pulse Source Pulse Oximeter Pulse Oximetry (%) 98 Oxygen Delivery Method Room Air Intake Visit Reasons: 2 MO FU/ Conf Crm Coordinator Required: No Accompanied by: Family/Other Allergies shellfish derived (SHELLFISH DERIVED) Allergy (Severe, Verified 03/01/25 12:04) ANAPHALAXIS Iodinated Contrast Media (IODINATED CONTRAST MEDIA - IV DYE) Allergy (Unknown, Verified 03/01/25 12:04) CAN NOT HAVE DUE TO SHELLFISH ALLERGY Medication List - Last Reconciled 03/01/25 by Nacho Rivas MD [( [place] toilet shaped toilet seat ) As directed] [2 grab bars 16 inches As directed] apixaban (Eliquis) 5 mg PO BID ascorbic acid (vitamin C) 250 mg PO DAILY aspirin 81 mg PO DAILY atorvastatin 40 mg PO DAILY blood sugar diagnostic (FreeStyle Lite Strips) As directed twice a day carvedilol 6.25 mg PO BID dulaglutide (Trulicity) 1.5 mg subcut Q7D empagliflozin (Jardiance) 10 mg PO DAILY famotidine 20 mg PO DAILY ferrous sulfate 325 mg PO DAILY levothyroxine 137 mcg PO DAILY 30 days sacubitril-valsartan 97-103 mg (Entresto) 1 tab PO BID spironolactone 25 mg PO DAILY HPI Comments Details: Pt is a 53 y/o female with a medical history of CKD stage 3a, proteinuria, uncontrolled DMII, HTN, RLS, GERD, hypercholesterolemia, morbid obesity, hx of cholecystectomy. Some diastolic dysfunction 2/2 HTN per cardiology in 2021 based on echo. She was referred by her PCP Dr Banuelos for proteinuria. History of ongoing proteinuria since at least 2018, DMII longstanding microalbumin to creatinine ratio 1404 in January, she has been elevated since at least 2018 (at that time ratio was 1596) reports she recently lost 25lbs by losing more vegetables, cut down on rice to once weekly as well but still could improve, bread is my weakness. no shortness of breath no chest pain denies urinary symptoms- no burning, frequency, urgency, nocturia, blood in urine or flank pain. She underwent renal ultrasonogram which was reportedly normal 11/21/2024. Two weeks ago she had cardiac arrest and resuscitated. Transferred to [facility] Waiting for cardiac evaluation. She is off chlorthalidone. Currently on Lasix 20 mg a day. She has no cardiology follow up 01/11/25 54-year-old female presenting with medication management and laboratory monitoring following recent adjustments in heart failure and hypertension therapy. Changes in her therapeutic regimen include the addition of spironolactone/Entresto and removal of amlodipine. This adjustment was conducted by her ingot header in [facility]. Since the medication changes, she has maintained stable functionality without respiratory compromise or indications of hyperkalemia. The necessity for laboratory evaluations is emphasized to ascertain kidney function stability and monitor for increased potassium levels due to spironolactone administration. The patient confirms adherence to medications and notes minor fluctuations in weight without significant variation observed. 03/01/25 The patient is a 54-year-old female presenting with concerns regarding kidney function management. She has a history of chronic kidney disease with fluctuating function between 35 to 40%, influenced by her cardiac condition. The patient underwent defibrillator implantation on February 16, which has improved her overall well-being and breathing. Her weight has remained stable at 190 pounds, and she denies any swelling in her legs or difficulty with urination. Blood pressure readings have been favorable, and no recent changes in medication were noted except for a slight adjustment in her regimen. The patient has diabetes mellitus, which is currently well-controlled with medications including Trulicity and Jardiance. She adheres to dietary recommendations to avoid high potassium foods, consuming strawberries and blackberries in moderation. [facility] Medical History (Updated 03/01/25 @ 12:09 by GAVIN Pearson) Cardiac defibrillator in place Type 2 diabetes mellitus with diabetic neuropathy, unspecified Hypothyroidism Vitamin D deficiency HLD (hyperlipidemia) HTN (hypertension) T2DM (type 2 diabetes mellitus) Surgical History History of cholecystectomy Hx of section Family History Father Hypertension Heart disease Mother Breast cancer Family history of thyroid problem Social History Housing: Apartment Alcohol intake: former Patient Tobacco Use Status: Never used Tobacco e-Cigarette/Vaping Use: Never Used service: No Current occupational status: unemployed Cognitive needs: Yes (cane) Hearing needs: No Vision needs: Yes (rx contacts) Physical Exam Vital Signs: Last Vital Signs Pulse 77 03/01/25 12:02 BP 110/62 03/01/25 12:02 Pulse Ox 98 03/01/25 12:02 Oxygen Delivery Method Room Air 03/01/25 12:02 BMI result Body Mass Index 36.1 Comfortable Neck supple no JVD. Lungs entry equal no rales. Heart S1-S2 heard no gallop or rub. Abdomen soft nontender. Neuro alert awake oriented. No asterixis. Extremities no edema. Results Reviewed Nephrology Results: Hgb, (12.0-16.0) 10.9 g/dl L 01/27/25 WBC, (4.8-10.8) 5.3 X10*3/uL 01/27/25 Plt Count, (160-400) 258 X10*3/uL Δ 01/27/25 Sodium, (135-145) 138 mmol/L 01/27/25 Potassium, (3.3-5.1) 4.6 mmol/L 01/27/25 Chloride, (96-108) 111 mmol/L H 01/27/25 Carbon Dioxide, (22-29) 20 mmol/L L 01/27/25 BUN, (9-16) 44 mg/dL H 01/27/25 Creatinine, (0.5-1.4) 1.55 mg/dL H 01/27/25 Calcium, (8.4-10.2) 9.9 mg/dL 01/27/25 Phosphorus, (2.7-4.5) 5.2 mg/dL H 01/27/25 PTH Intact, (8.7-77.1) 65.2 pg/mL 01/27/25 Urine Protein, (Neg-Trace) 100 (2+) mg/dL H 01/27/25 Renal US 06/18/24 Assessment & Plan Assessment & Plan (1) Type 2 diabetes mellitus with diabetic neuropathy, unspecified: Code(s): E11.40 - Type 2 diabetes mellitus with diabetic neuropathy, unspecified Category: Medical Qualifiers: Diabetes mellitus nursing home insulin use: without termite control service representative use Qualified Code(s): E11.40 - Type 2 diabetes mellitus with diabetic neuropathy, unspecified (2) Proteinuria: Code(s): R80.9 - Proteinuria, unspecified Category: Medical Qualifiers: Proteinuria type: persistent Qualified Code(s): R80.1 - Persistent proteinuria, unspecified (3) CKD (chronic kidney disease): Code(s): N18.9 - Chronic kidney disease, unspecified Category: Medical (4) HTN (hypertension): Code(s): I10 - Essential (primary) hypertension Category: Medical Qualifiers: Hypertension type: unspecified Qualified Code(s): I10 - Essential (primary) hypertension Plan 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 Differential would include FSGS from obesity. Serological workup for nondiabetic causes are unremarkable GILBERTO due to hypoperfusion Renal function is improving She would benefit from SGLT2 inhibitors, for renal protection and improved diabetic control advised reduce salt in diet continue to work on additional weight loss continue to work on improving blood sugar control CHF Severely reduced EF at 27% Now on Entresto and Spironolactone Orders: Orders Complete Blood Count no Diff Today I10 - Essential (primary) hypertension, N18.9 - Chronic kidney disease, unspecified Basic Metabolic Panel Today I10 - Essential (primary) hypertension, N18.9 - Chronic kidney disease, unspecified Coding Level of Care Code Est Pt Level 4 (96659) Diagnoses Type 2 diabetes mellitus with diabetic neuropathy, without long-term current use of insulin E11.40 Diabetes mellitus nursing home insulin use: without termite control service representative use Persistent proteinuria R80.1 Proteinuria type: persistent CKD (chronic kidney disease) N18.9 Hypertension, unspecified type I10 Hypertension type: unspecified
--- OUTSIDE RECORDS SUMMARY | 2025-03-01 13:08 | XMS_ITS | Clinical Summary ---
Author Organization [facility]ly [facility] Address [address] [place] [address] Care Team Providers Care Lamination Operator Name Role Phone Unavailable Primary Care Provider [...] Noted Date Diagnosed Date Cardiac arrest 11/10/2024 Social History Tobacco Use Types Packs/Day Years Used Date Smoking Tobacco: Never Assessed [facility] Utilities Answer Date Recorded In the past 12 months has e [employer] or [employer] threatened to shut off services in your [...] any time in the past 12 m [facility], were you homeless or living in a skilled nursing (including now)? Patient unable to answer 11/12/2024 [...] 89 11/18/2024 7:51 AM EDT Temperature 35.4 C (95.7 F) 11/18/2024 7:51 AM EDT Respiratory Rate 18 11/18/2024 7:51 [...] Procedure Name Priority Date/Time Associated Diagnosis Comments HIV 1/2 AG/AB CMIA REFLEX TO CONFIRMATION Routine 11/11/2024 11:24 AM EDT from Last 3 Months or Most Recently Relevant to Health Maintenance Results * HIV 1/2 Ag/Ab CMIA Reflex to Confirmation (11/11/2024 11:24 AM EDT) HIV 1/2 Ag/Ab CMIA Nonreactive Nonreactive 11/12/2024 10:22 AM EDT [facility] Comment: Results show no evidence of infection by HIV 1/2. If clinically indicated, repeat CMIA or test by nucleic acid amplification. HIV 1/2 Antigen/Antibody CMIA reflex to confirmation AND HIV-1 RNA viral load recommended in patients who are taking or have recently taken PrEP. Blood Blood specimen / Unknown 11/11/2024 11:24 AM EDT 11/11/2024 1:05 PM EDT us Elinor FONTANA LAB BLOOD ORDERABLES Final Result [facility] [address] [place] [address], from Last 3 Months or Most Recently Relevant to Health Maintenance Insurance [employer] Advance Directives * Full Code (Latest Code Status on File) Date Activated Date Inactivated Comments 11/10/2024 7:51 AM Healthcare Agents on File Name Relationship Healthcare Agent [facility] Communication Scott Powell Adult child 4. Next of Kin ( Spouse, Adult Child, Parent, Adult Sibling, Grandparent) Benito Lopezda Adult child 4. Next of Kin ( Spouse, Adult Child, Parent, Adult Sibling, Grandparent) Alfred Rios Adult child 4. Next of Kin (Spouse, Adult Child, Parent, Adult Sibling, Grandparent)
--- OUTSIDE RECORDS SUMMARY | 2025-03-01 13:08 | XMS_ITS | Clinical Summary ---
Author Organization [facility] Address [address] [place] [address] Phone Care Team Providers Care Lighting Engineering Technician Name Role Phone Phill Banuelos MD Primary Care Provider [phone] Allergies Active Allergy Reactions Criticality Noted Date [...] 10.1 8.7 - 10.7 mg/dL eGFR Non-Afr [place] 48 Magnesium 1.6 1.6 - 2.4 Hemoglobin A1C 11.5(A) 4.0 - 6.0 01/21/2022 [facility] Provider LAB BLOOD ORDERABLES Amarilis l Result from Last 3 Months or Most Recently Relevant to Health Maintenance Insurance Medicaid Medicaid [facility] Medicaid Care Teams Lighting Engineering Technician Relationship Specialty Start Date End Date Phill Banuelos MD [address] [place] [address] [id number] [place], [place] PCP - General Internal Medicine 04/26/21
--- OUTSIDE RECORDS SUMMARY | 2025-03-01 13:08 | XMS_ITS ---
Author Name [facility] Organization Unknown Results Test Name/Text Value Interpretation Date Range Source POC Glucose 138.0 mg/dL Above high normal 11/18/2024 65 - 99 HHCCT POC Glucose 143.0 mg/dL Above high normal 11/18/2024 65 - 99 HHCCT POC Glucose 113.0 mg/dL Above high normal 11/17/2024 65 - 99 HHCCT POC Glucose 128.0 mg/dL Above high normal 11/17/2024 65 - 99 HHCCT Calcium SerPl-mCnc 9.6 mg/dL Normal 11/17/2024 8.7 - 10.5 HHCCT Anion Gap Bld-sCnc 15.0 Normal 11/17/2024 7 - 17 HHCCT BUN/Creat SerPl 27.0 Ratio Above high normal 11/17/2024 10 - 25 HHCCT Sodium SerPl-sCnc 137.0 mmol/L Normal 11/17/2024 136 - 14 5 HHCCT CO2 SerPl-sCnc 20.0 mmol/L Below low normal 11/17/2024 22 - 33 HHCCT Chloride SerPl-sCnc 102.0 mmol/L Normal 11/17/2024 98 - 1 07 HHCCT Creat SerPl-mCnc 1.2 mg/dL Above high normal 11/17/2024 0.4 - 1.1 HHCCT Potassium SerPl-sCnc 3.9 mmol/L Normal 11/17/2024 3.4 - 5 .3 HHCCT Glucose SerPl-mCnc 138.0 mg/dL Above high normal 11/17/2024 65 - 99 HHCCT GFR/BSA.pred SerPlBld [id number] 54.0 Below low normal 11/17/2024 59 - HHCCT BUN SerPl-mCnc 32.0 mg/dL Above high normal 11/17/2024 8 - 2 1 HHCCT Myelocytes num Bld Manual 0.1 Thou/uL Above high normal 11/17/2024 - HHCCT Monocytes/leuk NFr Bld Auto 6.0 % Normal 11/17/2024 HHCCT Neutrophils num Bld Auto 5.0 Thou/uL Normal 11/17/2024 2 - 7.5 HHCCT Metamyelocytes/leuk NFr Bld Manual 3.0 % Normal 11/17/2024 HHCCT Neuts Band num Bld Manual 1.0 % Normal 11/17/2024 HHCCT Segmented Neutrophil 69.0 % Normal 11/17/2024 HHCCT Monocyte, Absolute 0.4 Thou/uL Normal 11/17/2024 0.2 - 1. 5 HHCCT Lymphocytes/leuk NFr Bld Auto 20.0 % Normal 11/17/2024 HHCCT Myelocytes/leuk NFr Bld Manual 1.0 % Normal 11/17/2024 HHCCT Normocytes Present Normal 11/17/2024 HHCCT Normochromic Bld Ql Smear Present Normal 11/17/2024 HHCCT Lymphocytes num Bld Auto 1.4 Thou/uL Below low normal 11/17/2024 1.5 - 4.5 HHCCT Metamyelocytes num Bld Manual 0.2 Thou/uL Above high normal 11/17/2024 - HHCCT nRBC/100 WBC Bld Auto-Rto 0.3 /100 WBC Above high normal 11/17/2024 0 - 0.1 HHCCT Hct VFr Bld Auto 29.2 % Below low normal 11/17/2024 35 - 47 HHCCT WBC num Bld Auto 7.1 Thou/uL Normal 11/17/2024 4 - 11 HHCCT Hgb Bld-mCnc 9.0 g/dL Below low normal 11/17/2024 11.7 - 15.7 HHCCT MCV RBC Auto 83.0 fL Normal 11/17/2024 80 - 100 HHCCT PMV Bld Auto 9.9 fL Normal 11/17/2024 7.5 - 12.5 HHCCT nRBC num Bld Auto 0.02 Thou/uL Normal 11/17/2024 0 - 0.02 HHCCT MCH RBC Qn Auto 25.6 pg Below low normal 11/17/2024 27 - 3 1 CCT Platelet num Bld Auto 286.0 Thou/uL Normal 11/17/2024 150 - 450 HHCCT MCHC RBC Auto-mCnc 30.8 g/dL Normal 11/17/2024 30 - 36 HHCCT RBC num Bld Auto 3.52 Mil/uL Below low normal 11/17/2024 4 - 5.4 HHCCT RDW RBC Auto-Rto 14.2 % Normal 11/17/2024 11.5 - 14.5 HHCCT LMWH PPP Healthcare Consultant-aCnc 0.27 IU/mL Normal 11/17/2024 HHCCT Anticoagulant IV HEPARIN, UNFRACTIONATED Normal 11/17/2024 HHCCT POC Glucose 100.0 mg/dL Above high normal 11/17/2024 65 - 99 HHCCT LMWH PPP Healthcare Consultant-aCnc 0.31 IU/mL Normal 11/17/2024 HHCCT Anticoagulant IV HEPARIN, UNFRACTIONATED Normal 11/17/2024 HHCCT POC Glucose 114.0 mg/dL Above high normal 11/17/2024 65 - 99 HHCCT POC Glucose 107.0 mg/dL Above high normal 11/16/2024 65 - 99 HHCCT POC Glucose 127.0 mg/dL Above high normal 11/16/2024 65 - 99 HHCCT LMWH PPP Healthcare Consultant-aCnc 0.48 IU/mL Normal 11/16/2024 HHCCT Anticoagulant IV HEPARIN, UNFRACTIONATED Normal 11/16/2024 CCT Sodium SerPl-sCnc 134.0 mmol/L Below low normal 11/16/2024 1 36 - 145 HHCCT BUN/Creat SerPl 31.0 Ratio Above high normal 11/16/2024 10 - 25 HHCCT Glucose SerPl-mCnc 115.0 mg/dL Above high normal 11/16/2024 65 - 99 HHCCT Potassium SerPl-sCnc 3.7 mmol/L Normal 11/16/2024 3.4 - 5 .3 HHCCT Anion Gap Bld-sCnc 12.0 Normal 11/16/2024 7 - 17 HHCCT CO2 SerPl-sCnc 23.0 mmol/L Normal 11/16/2024 22 - 33 HH CCT Creat SerPl-mCnc 1.4 mg/dL Above high normal 11/16/2024 0.4 - 1.1 HHCCT Chloride SerPl-sCnc 99.0 mmol/L Normal 11/16/2024 98 - 10 7 HHCCT BUN SerPl-mCnc 43.0 mg/dL Above high normal 11/16/2024 8 - 2 1 HHCCT Calcium SerPl-mCnc 9.7 mg/dL Normal 11/16/2024 8.7 - 10.5 HHCCT GFR/BSA.pred SerPlBld [id number] 45.0 Below low normal 11/16/2024 59 - HHCCT Magnesium SerPl-mCnc 2.1 mg/dL Normal 11/16/2024 1.6 - 2. 7 HHCCT RDW RBC Auto-Rto 13.8 % Normal 11/16/2024 11.5 - 14.5 HHCCT RBC num Bld Auto 3.72 Mil/uL Below low normal 11/16/2024 4 - 5.4 HHCCT MCH RBC Qn Auto 25.3 pg Below low normal 11/16/2024 27 - 3 1 HHCCT Platelet num Bld Auto 300.0 Thou/uL Normal 11/16/2024 150 - 450 HHCCT MCHC RBC Auto-mCnc 31.2 g/dL Normal 11/16/2024 30 - 36 HHCCT MCV RBC Auto 81.0 fL Normal 11/16/2024 80 - 100 HHCCT PMV Bld Auto 9.7 fL Normal 11/16/2024 7.5 - 12.5 HHCCT WBC num Bld Auto 7.7 Thou/uL Normal 11/16/2024 4 - 11 HHCCT nRBC/100 WBC Bld Auto-Rto 0.3 /100 WBC Above high normal 11/16/2024 0 - 0.1 HHCCT nRBC num Bld Auto 0.02 Thou/uL Normal 11/16/2024 0 - 0.02 HHCCT Hgb Bld-mCnc 9.4 g/dL Below low normal 11/16/2024 11.7 - 15.7 HHCCT Hct VFr Bld Auto 30.1 % Below low normal 11/16/2024 35 - 47 HHCCT POC Glucose 119.0 mg/dL Above high normal 11/16/2024 65 - 99 HHCCT LMWH PPP Healthcare Consultant-aCnc 0.87 IU/mL Normal 11/16/2024 HHCCT Anticoagulant IV HEPARIN, UNFRACTIONATED Normal 11/15/2024 CCT POC Glucose 187.0 mg/dL Above high normal 11/16/2024 65 - 99 CCT INR PPP 1.1 Normal [facility] 12.3 seconds Normal 11/16/2024 10 - 13.5 HHCCT Anticoagulant IV HEPARIN, UNFRACTIONATED Normal 11/15/2024 CCT aPTT PPP 47.0 seconds Above high normal 11/16/2024 25 - 36 HHCCT Anticoagulant IV HEPARIN, UNFRACTIONATED Normal 11/15/2024 CCT LMWH PPP Healthcare Consultant-aCnc 0.87 IU/mL Normal 11/16/2024 CCT Anticoagulant OTHER AGENT OR UNKNOWN Normal 11/15/2024 HHCCT RDW RBC Auto-Rto 13.8 % Normal 11/16/2024 11.5 - 14.5 HHCCT Hct VFr Bld Auto 29.8 % Below low normal 11/16/2024 35 - 47 HHCCT Lymphocytes/leuk NFr Bld Auto 25.3 % Normal 11/16/2024 CCT Imm Granulocytes num Bld Auto 0.34 Thou/uL Above high normal 11/16/2024 0 - 0.1 HHCCT Eosinophil num Bld Auto 0.02 Thou/uL Normal 11/16/2024 0 - 0.7 HHCCT MCHC RBC Auto-mCnc 31.5 g/dL Normal 11/16/2024 30 - 36 HHCCT Imm Granulocytes/leuk NFr Bld Auto 4.6 % Normal 11/16/2024 HHCCT PMV Bld Auto 9.9 fL Normal 11/16/2024 7.5 - 12.5 HHCCT MCV RBC Auto 81.0 fL Normal 11/16/2024 80 - 100 HHCCT WBC num Bld Auto 7.4 Thou/uL Normal 11/16/2024 4 - 11 HHCCT nRBC num Bld Auto 0.03 Thou/uL Above high normal 11/16/2024 0 - 0.02 HHCCT Neutrophils/leuk NFr Bld Auto 58.6 % Normal 11/16/2024 HHCCT Neutrophils num Bld Auto 4.37 Thou/uL Normal 11/16/2024 2 - 7.5 HHCCT Basophils/leuk NFr Bld Auto 0.3 % Normal 11/16/2024 HHCCT nRBC/100 WBC Bld Auto-Rto 0.4 /100 WBC Above high normal 11/16/2024 0 - 0.1 HHCCT Lymphocytes num Bld Auto 1.88 Thou/uL Normal 11/16/2024 1.5 - 4.5 HHCCT Monocytes/leuk NFr Bld Auto 10.9 % Normal 11/16/2024 HHCCT Hgb Bld-mCnc 9.4 g/dL Below low normal 11/16/2024 11.7 - 15.7 HHCCT Monocytes num Bld Auto 0.81 Thou/uL Normal 11/16/2024 0.2 - 1.5 HHCCT Basophils num Bld Auto 0.02 Thou/uL Normal 11/16/2024 0 - 0.2 HHCCT MCH RBC Qn Auto 25.5 pg Below low normal 11/16/2024 27 - 3 1 HHCCT Eosinophil/leuk NFr Bld Auto 0.3 % Normal 11/16/2024 HHCCT Platelet num Bld Auto 304.0 Thou/uL Normal 11/16/2024 150 - 450 HHCCT RBC num Bld Auto 3.69 Mil/uL Below low normal 11/16/2024 4 - 5.4 HHCCT POC Glucose 129.0 mg/dL Above high normal 11/15/2024 65 - 99 HHCCT POC Glucose 148.0 mg/dL Above high normal 11/15/2024 65 - 99 HHCCT Creat SerPl-mCnc 1.6 mg/dL Above high normal 11/15/2024 0.4 - 1.1 HHCCT Sodium SerPl-sCnc 134.0 mmol/L Below low normal 11/15/2024 1 36 - 145 HHCCT BUN SerPl-mCnc 45.0 mg/dL Above high normal 11/15/2024 8 - 2 1 HHCCT GFR/BSA.pred SerPlBld ABA-MUG-[id number] 38.0 Below low normal 11/15/2024 59 - HHCCT CO2 SerPl-sCnc 26.0 mmol/L Normal 11/15/2024 22 - 33 HH CCT Chloride SerPl-sCnc 96.0 mmol/L Below low normal 11/15/2024 98 - 107 HHCCT Calcium SerPl-mCnc 9.9 mg/dL Normal 11/15/2024 8.7 - 10.5 HHCCT Anion Gap Bld-sCnc 12.0 Normal 11/15/2024 7 - 17 HHCCT Potassium SerPl-sCnc 3.8 mmol/L Normal 11/15/2024 3.4 - 5 .3 HHCCT BUN/Creat SerPl 28.0 Ratio Above high normal 11/15/2024 10 - 25 HHCCT Glucose SerPl-mCnc 117.0 mg/dL Above high normal 11/15/2024 65 - 99 HHCCT Magnesium SerPl-mCnc 2.2 mg/dL Normal 11/15/2024 1.6 - 2. 7 HHCCT Hct VFr Bld Auto 30.9 % Below low normal 11/15/2024 35 - 47 HHCCT PMV Bld Auto 10.1 fL Normal 11/15/2024 7.5 - 12.5 HHCCT nRBC/100 WBC Bld Auto-Rto 0.3 /100 WBC Above high normal 11/15/2024 0 - 0.1 HHCCT RDW RBC Auto-Rto 13.9 % Normal 11/15/2024 11.5 - 14.5 HHCCT Hgb Bld-mCnc 9.9 g/dL Below low normal 11/15/2024 11.7 - 15.7 HHCCT MCH RBC Qn Auto 25.8 pg Below low normal 11/15/2024 27 - 3 1 HHCCT Platelet num Bld Auto 306.0 Thou/uL Normal 11/15/2024 150 - 450 HHCCT MCV RBC Auto 81.0 fL Normal 11/15/2024 80 - 100 HHCCT MCHC RBC Auto-mCnc 32.0 g/dL Normal 11/15/2024 30 - 36 HHCCT nRBC num Bld Auto 0.02 Thou/uL Normal 11/15/2024 0 - 0.02 HHCCT RBC num Bld Auto 3.84 Mil/uL Below low normal 11/15/2024 4 - 5.4 HHCCT WBC num Bld Auto 7.1 Thou/uL Normal 11/15/2024 4 - 11 HHCCT POC Glucose 127.0 mg/dL Above high normal 11/15/2024 65 - 99 HHCCT POC Glucose 177.0 mg/dL Above high normal 11/15/2024 65 - 99 HHCCT POC Glucose 124.0 mg/dL Above high normal 11/14/2024 65 - 99 HHCCT POC Glucose 139.0 mg/dL Above high normal 11/14/2024 65 - 99 HHCCT POC Glucose 128.0 mg/dL Above high normal 11/14/2024 65 - 99 HHCCT Phosphate SerPl-mCnc 4.2 mg/dL Normal 11/14/2024 2.7 - 4. 5 HHCCT Creat SerPl-mCnc 1.6 mg/dL Above high normal 11/14/2024 0.4 - 1.1 HHCCT BUN SerPl-mCnc 46.0 mg/dL Above high normal 11/14/2024 8 - 2 1 HHCCT Glucose SerPl-mCnc 112.0 mg/dL Above high normal 11/14/2024 65 - 99 HHCCT CO2 SerPl-sCnc 24.0 mmol/L Normal 11/14/2024 22 - 33 HH CCT Anion Gap Bld-sCnc 14.0 Normal 11/14/2024 7 - 17 HHCCT Sodium SerPl-sCnc 136.0 mmol/L Normal 11/14/2024 136 - 14 5 HHCCT Chloride SerPl-sCnc 98.0 mmol/L Normal 11/14/2024 98 - 10 7 HHCCT Potassium SerPl-sCnc 3.6 mmol/L Normal 11/14/2024 3.4 - 5 .3 HHCCT Calcium SerPl-mCnc 9.4 mg/dL Normal 11/14/2024 8.7 - 10.5 HHCCT GFR/BSA.pred SerPlBld [id number] 38.0 Below low normal 11/14/2024 59 - HHCCT BUN/Creat SerPl 29.0 Ratio Above high normal 11/14/2024 10 - 25 HHCCT Magnesium SerPl-mCnc 2.1 mg/dL Normal 11/14/2024 1.6 - 2. 7 HHCCT Hgb Bld-mCnc 9.3 g/dL Below low normal 11/14/2024 11.7 - 15.7 HHCCT Platelet num Bld Auto 264.0 Thou/uL Normal 11/14/2024 150 - 450 HHCCT RDW RBC Auto-Rto 14.1 % Normal 11/14/2024 11.5 - 14.5 HHCCT MCHC RBC Auto-mCnc 31.8 g/dL Normal 11/14/2024 30 - 36 HHCCT PMV Bld Auto 9.5 fL Normal 11/14/2024 7.5 - 12.5 HHCCT Hct VFr Bld Auto 29.2 % Below low normal 11/14/2024 35 - 47 HHCCT MCH RBC Qn Auto 25.8 pg Below low normal 11/14/2024 27 - 3 1 HHCCT MCV RBC Auto 81.0 fL Normal 11/14/2024 80 - 100 HHCCT RBC num Bld Auto 3.61 Mil/uL Below low normal 11/14/2024 4 - 5.4 HHCCT WBC num Bld Auto 6.2 Thou/uL Normal 11/14/2024 4 - 11 HHCCT POC Glucose 158.0 mg/dL Above high normal 11/14/2024 65 - 99 HHCCT POC Glucose 120.0 mg/dL Above high normal 11/13/2024 65 - 99 HHCCT Phosphate SerPl-mCnc 3.7 mg/dL Normal 11/13/2024 2.7 - 4. 5 HHCCT BUN/Creat SerPl 27.0 Ratio Above high normal 11/13/2024 10 - 25 HHCCT Calcium SerPl-mCnc 9.5 mg/dL Normal 11/13/2024 8.7 - 10.5 HHCCT Anion Gap Bld-sCnc 13.0 Normal 11/13/2024 7 - 17 HHCCT CO2 SerPl-sCnc 22.0 mmol/L Normal 11/13/2024 22 - 33 HH CCT GFR/BSA.pred SerPlBld [id number]-CcCUso 41.0 Below low normal 11/13/2024 59 - HHCCT Glucose SerPl-mCnc 136.0 mg/dL Above high normal 11/13/2024 65 - 99 HHCCT BUN SerPl-mCnc 41.0 mg/dL Above high normal 11/13/2024 8 - 2 1 HHCCT Sodium SerPl-sCnc 137.0 mmol/L Normal 11/13/2024 136 - 14 5 HHCCT Creat SerPl-mCnc 1.5 mg/dL Above high normal 11/13/2024 0.4 - 1.1 HHCCT Chloride SerPl-sCnc 102.0 mmol/L Normal 11/13/2024 98 - 1 07 HHCCT Potassium SerPl-sCnc 4.0 mmol/L Normal 11/13/2024 3.4 - 5 .3 HHCCT Magnesium SerPl-mCnc 2.1 mg/dL Normal 11/13/2024 1.6 - 2. 7 HHCCT POC Glucose 142.0 mg/dL Above high normal 11/13/2024 65 - 99 HHCCT POC Glucose 131.0 mg/dL Above high normal 11/13/2024 65 - 99 HHCCT POC Glucose 114.0 mg/dL Above high normal 11/13/2024 65 - 99 HHCCT Est. average glucose Bld gHb Est-mCnc 126.0 mg/dL Normal 11/13/2024 HHCCT Hgb A1c MFr Bld 6.0 % Above high normal 11/13/2024 - 5.7 HHCCT Phosphate SerPl-mCnc 3.3 mg/dL Normal 11/13/2024 2.7 - 4. 5 HHCCT Magnesium SerPl-mCnc 1.9 mg/dL Normal 11/13/2024 1.6 - 2. 7 HHCCT Creat SerPl-mCnc 1.5 mg/dL Above high normal 11/13/2024 0.4 - 1.1 HHCCT Calcium SerPl-mCnc 9.3 mg/dL Normal 11/13/2024 8.7 - 10.5 HHCCT Anion Gap Bld-sCnc 11.0 Normal 11/13/2024 7 - 17 HHCCT Glucose SerPl-mCnc 116.0 mg/dL Above high normal 11/13/2024 65 - 99 HHCCT Potassium SerPl-sCnc 4.0 mmol/L Normal 11/13/2024 3.4 - 5 .3 HHCCT BUN SerPl-mCnc 38.0 mg/dL Above high normal 11/13/2024 8 - 2 1 HHCCT CO2 SerPl-sCnc 23.0 mmol/L Normal 11/13/2024 22 - 33 HH CCT Chloride SerPl-sCnc 104.0 mmol/L Normal 11/13/2024 98 - 1 07 HHCCT Sodium SerPl-sCnc 138.0 mmol/L Normal 11/13/2024 136 - 14 5 HHCCT GFR/BSA.pred SerPlBld QFB-QHU-LiPTbg 41.0 Below low normal 11/13/2024 59 - HHCCT BUN/Creat SerPl 25.0 Ratio Normal 11/13/2024 10 - 25 HH CCT LMWH PPP Healthcare Consultant-aCnc 0.45 IU/mL Normal 11/13/2024 HHCCT Anticoagulant IV HEPARIN, UNFRACTIONATED Normal 11/13/2024 HHCCT MCHC RBC Auto-mCnc 31.6 g/dL Normal 11/13/2024 30 - 36 HHCCT Platelet num Bld Auto 233.0 Thou/uL Normal 11/13/2024 150 - 450 HHCCT Hgb Bld-mCnc 9.3 g/dL Below low normal 11/13/2024 11.7 - 15.7 HHCCT MCV RBC Auto 83.0 fL Normal 11/13/2024 80 - 100 HHCCT nRBC/100 WBC Bld Auto-Rto 0.3 /100 WBC Above high normal 11/13/2024 0 - 0.1 HHCCT PMV Bld Auto 9.6 fL Normal 11/13/2024 7.5 - 12.5 HHCCT RBC num Bld Auto 3.55 Mil/uL Below low normal 11/13/2024 4 - 5.4 HHCCT MCH RBC Qn Auto 26.2 pg Below low normal 11/13/2024 27 - 3 1 HHCCT nRBC num Bld Auto 0.02 Thou/uL Normal 11/13/2024 0 - 0.02 HHCCT RDW RBC Auto-Rto 14.6 % Above high normal 11/13/2024 1 1.5 - 14.5 HHCCT Hct VFr Bld Auto 29.4 % Below low normal 11/13/2024 35 - 47 HHCCT WBC num Bld Auto 8.0 Thou/uL Normal 11/13/2024 4 - 11 HHCCT POC Glucose 129.0 mg/dL Above high normal 11/13/2024 65 - 99 HHCCT POC Glucose 162.0 mg/dL Above high normal 11/12/2024 65 - 99 HHCCT Magnesium SerPl-mCnc 2.0 mg/dL Normal 11/12/2024 1.6 - 2. 7 HHCCT Phosphate SerPl-mCnc 3.0 mg/dL Normal 11/12/2024 2.7 - 4. 5 HHCCT Calcium SerPl-mCnc 9.3 mg/dL Normal 11/12/2024 8.7 - 10.5 HHCCT Creat SerPl-mCnc 1.4 mg/dL Above high normal 11/12/2024 0.4 - 1.1 HHCCT Potassium SerPl-sCnc 4.3 mmol/L Normal 11/12/2024 3.4 - 5 .3 HHCCT GFR/BSA.pred SerPlBld QMV-EYA-IfHTut 45.0 Below low normal 11/12/2024 59 - HHCCT BUN SerPl-mCnc 36.0 mg/dL Above high normal 11/12/2024 8 - 2 1 HHCCT Anion Gap Bld-sCnc 13.0 Normal 11/12/2024 7 - 17 HHCCT CO2 SerPl-sCnc 21.0 mmol/L Below low normal 11/12/2024 22 - 33 HHCCT BUN/Creat SerPl 26.0 Ratio Above high normal 11/12/2024 10 - 25 HHCCT Glucose SerPl-mCnc 157.0 mg/dL Above high normal 11/12/2024 65 - 99 HHCCT Chloride SerPl-sCnc 108.0 mmol/L Above high normal 98 - 107 HHCCT Sodium SerPl-sCnc 142.0 mmol/L Normal 11/12/2024 136 - 14 5 HHCCT POC Glucose 145.0 mg/dL Above high normal 11/12/2024 65 - 99 HHCCT pO2, Arterial 78.0 mmHG Normal 11/12/2024 75 - 95 HHCCT Total CO2, Arterial 24.0 mmol/L Normal 11/12/2024 22 - 28 HHCCT MetHgb MFr Bld 0.5 % Normal 11/12/2024 0.4 - 1.5 HHCC T Base deficit BldA-sCnc 2.5 mmol/L Normal 11/12/2024 HHCCT COHgb MFr Bld 1.5 % Normal 11/12/2024 0 - 2 HHCCT SaO2 % BldA 96.2 % Normal 11/12/2024 94 - 97 HHCCT Hgb Bld-mCnc 6.1 g/dL Below low normal 11/12/2024 11.7 - 15.7 HHCCT pCO2, Arterial 42.0 mmHG Normal 11/12/2024 32 - [address] VFr BldA Calc 5.8 mL/dL Below low normal 11/12/2024 15.7 - 21.6 HHCCT pH, Arterial 7.35 Normal 11/12/2024 7.35 - 7.45 HHCCT P/F Ratio 195.0 Normal 11/12/2024 HHCCT Respiratory Information VENT 40% Normal 11/12/2024 HHCCT POC Glucose 188.0 mg/dL Above high normal 11/12/2024 65 - 99 HHCCT LMWH PPP Healthcare Consultant-aCnc 0.38 IU/mL Normal 11/12/2024 HHCCT Anticoagulant IV HEPARIN, UNFRACTIONATED Normal 11/12/2024 HHCCT POC Glucose 168.0 mg/dL Above high normal 11/12/2024 65 - 99 HHCCT LMWH PPP Healthcare Consultant-aCnc 0.42 IU/mL Normal 11/12/2024 HHCCT Anticoagulant IV HEPARIN, UNFRACTIONATED Normal 11/12/2024 HHCCT Sodium SerPl-sCnc 140.0 mmol/L Normal 11/12/2024 136 - 14 5 HHCCT Glucose SerPl-mCnc 144.0 mg/dL Above high normal 11/12/2024 65 - 99 HHCCT BUN/Creat SerPl 23.0 Ratio Normal 11/12/2024 10 - 25 HH CCT Anion Gap Bld-sCnc 9.0 Normal 11/12/2024 7 - 17 HHCCT CO2 SerPl-sCnc 22.0 mmol/L Normal 11/12/2024 22 - 33 HH CCT BUN SerPl-mCnc 35.0 mg/dL Above high normal 11/12/2024 8 - 2 1 HHCCT Chloride SerPl-sCnc 109.0 mmol/L Above high normal 98 - 107 HHCCT Potassium SerPl-sCnc 3.9 mmol/L Normal 11/12/2024 3.4 - 5 .3 HHCCT Calcium SerPl-mCnc 9.2 mg/dL Normal 11/12/2024 8.7 - 10.5 HHCCT GFR/BSA.pred SerPlBld UIU-NIK-HiEWws 41.0 Below low normal 11/12/2024 59 - HHCCT Creat SerPl-mCnc 1.5 mg/dL Above high normal 11/12/2024 0.4 - 1.1 HHCCT Phosphate SerPl-mCnc 3.1 mg/dL Normal 11/12/2024 2.7 - 4. 5 HHCCT Magnesium SerPl-mCnc 2.0 mg/dL Normal 11/12/2024 1.6 - 2. 7 HHCCT MCV RBC Auto 84.0 fL Normal 11/12/2024 80 - 100 HHCCT RDW RBC Auto-Rto 14.9 % Above high normal 11/12/2024 1 1.5 - 14.5 HHCCT Hgb Bld-mCnc 9.1 g/dL Below low normal 11/12/2024 11.7 - 15.7 HHCCT WBC num Bld Auto 7.1 Thou/uL Normal 11/12/2024 4 - 11 HHCCT RBC num Bld Auto 3.53 Mil/uL Below low normal 11/12/2024 4 - 5.4 HHCCT PMV Bld Auto 10.0 fL Normal 11/12/2024 7.5 - 12.5 HHCCT MCHC RBC Auto-mCnc 30.6 g/dL Normal 11/12/2024 30 - 36 HHCCT Platelet num Bld Auto 215.0 Thou/uL Normal 11/12/2024 150 - 450 HHCCT MCH RBC Qn Auto 25.8 pg Below low normal 11/12/2024 27 - 3 1 HHCCT Hct VFr Bld Auto 29.7 % Below low normal 11/12/2024 35 - 47 HHCCT POC Glucose 145.0 mg/dL Above high normal 11/12/2024 65 - 99 CCT POC Glucose 172.0 mg/dL Above high normal 11/12/2024 65 - 99 CCT LMWH PPP Healthcare Consultant-aCnc 0.25 IU/mL Normal 11/11/2024 CCT Anticoagulant IV HEPARIN, UNFRACTIONATED Normal 11/11/2024 CCT POC Glucose 149.0 mg/dL Above high normal 11/11/2024 65 - 99 CCT aPTT PPP 37.0 seconds Above high normal 11/11/2024 25 - 36 HHCCT Anticoagulant IV HEPARIN, UNFRACTIONATED Normal 11/11/2024 CCT Prothrombin time 14.1 seconds Above high normal 11/11/2024 1 0 - 13.5 HHCCT INR PPP 1.3 Normal 11[facility]11[facility] HEPARIN, UNFRACTIONATED Normal 11/11/2024 [facility] Monocytes num Bld Auto 0.73 Thou/uL Normal 11/11/2024 0.2 - 1.5 HHCCT Imm Granulocytes/leuk NFr Bld Auto 0.5 % Normal 11/11/2024 CCT RDW RBC Auto-Rto 14.8 % Above high normal 11/11/2024 1 1.5 - 14.5 HHCCT Neutrophils/leuk NFr Bld Auto 69.4 % Normal 11/11/2024 CCT MCH RBC Qn Auto 25.5 pg Below low normal 11/11/2024 27 - 3 1 HHCCT PMV Bld Auto 10.0 fL Normal 11/11/2024 7.5 - 12.5 HHCCT Neutrophils num Bld Auto 4.34 Thou/uL Normal 11/11/2024 2 - 7.5 HHCCT Lymphocytes/leuk NFr Bld Auto 17.9 % Normal 11/11/2024 HHCCT RBC num Bld Auto 3.33 Mil/uL Below low normal 11/11/2024 4 - 5.4 HHCCT Eosinophil/leuk NFr Bld Auto 0.3 % Normal 11/11/2024 CCT WBC num Bld Auto 6.3 Thou/uL Normal 11/11/2024 4 - 11 HHCCT MCHC RBC Auto-mCnc 30.2 g/dL Normal 11/11/2024 30 - 36 HHCCT Basophils/leuk NFr Bld Auto 0.2 % Normal 11/11/2024 HHCCT Monocytes/leuk NFr Bld Auto 11.7 % Normal 11/11/2024 H[facility]CT Platelet num Bld Auto 202.0 Thou/uL Normal 11/11/2024 150 - 450 HHCCT Imm Granulocytes num Bld Auto 0.03 Thou/uL Normal 11/11/2024 0 - 0.1 HHCCT Hgb Bld-mCnc 8.5 g/dL Below low normal 11/11/2024 11.7 - 15.7 HHCCT Hct VFr Bld Auto 28.1 % Below low normal 11/11/2024 35 - 47 HHCCT Basophils num Bld Auto 0.01 Thou/uL Normal 11/11/2024 0 - 0.2 HHCCT MCV RBC Auto 84.0 fL Normal 11/11/2024 80 - 100 HHCCT Lymphocytes num Bld Auto 1.12 Thou/uL Below low normal 11/11/2024 1.5 - 4.5 HHCCT Eosinophil num Bld Auto 0.02 Thou/uL Normal 11/11/2024 0 - 0.7 HHCCT HIV 1+2 Ab+HIV1 p24 Ag Ser EIA-aCnc Nonreactive Normal 11/12/2024 - HHCCT BUN/Creat SerPl 21.0 Ratio Normal 11/11/2024 10 - 25 HH CCT CO2 SerPl-sCnc 22.0 mmol/L Normal 11/11/2024 22 - 33 HH CCT Glucose SerPl-mCnc 159.0 mg/dL Above high normal 11/11/2024 65 - 99 HHCCT BUN SerPl-mCnc 33.0 mg/dL Above high normal 11/11/2024 8 - 2 1 HHCCT Potassium SerPl-sCnc 3.4 mmol/L Normal 11/11/2024 3.4 - 5 .3 HHCCT Sodium SerPl-sCnc 140.0 mmol/L Normal 11/11/2024 136 - 14 5 HHCCT Calcium SerPl-mCnc 8.9 mg/dL Normal 11/11/2024 8.7 - 10.5 HHCCT Anion Gap Bld-sCnc 10.0 Normal 11/11/2024 7 - 17 HHCCT GFR/BSA.pred SerPlBld [id number] 38.0 Below low normal 11/11/2024 59 - HHCCT Creat SerPl-mCnc 1.6 mg/dL Above high normal 11/11/2024 0.4 - 1.1 HHCCT Chloride SerPl-sCnc 108.0 mmol/L Above high normal 98 - 107 HHCCT Transferrin SerPl-mCnc 189.0 mg/dL Below low normal 11/11/2024 200 - 360 HHCCT Magnesium SerPl-mCnc 2.0 mg/dL Normal 11/11/2024 1.6 - 2. 7 HHCCT Ferritin SerPl-mCnc 114.0 ug/L Normal 11/11/2024 30 - 400 HHCCT Iron SerPl-mCnc 16.0 ug/dL Below low normal 11/11/2024 59 - 151 HHCCT UIBC SerPl-mCnc 209.0 ug/dL Normal 11/11/2024 112 - 346 H HCCT Iron Satn MFr SerPl 7.0 % Below low normal 11/11/2024 20 - 50 HHCCT TIBC SerPl-mCnc 225.0 ug/dL Normal 11/11/2024 100 - 400 H HCCT Phosphate SerPl-mCnc 3.5 mg/dL Normal 11/11/2024 2.7 - 4. 5 HHCCT Hct VFr Bld Auto 28.6 % Below low normal 11/11/2024 35 - 47 HHCCT Hgb Bld-mCnc 8.8 g/dL Below low normal 11/11/2024 11.7 - 15.7 HHCCT POC Glucose 181.0 mg/dL Above high normal 11/11/2024 65 - 99 HHCCT POC Glucose 143.0 mg/dL Above high normal 11/11/2024 65 - 99 HHCCT POC Glucose 162.0 mg/dL Above high normal 11/11/2024 65 - 99 HHCCT Phosphate SerPl-mCnc 4.7 mg/dL Above high normal 11/11/2024 2.7 - 4.5 HHCCT CO2 SerPl-sCnc 22.0 mmol/L Normal 11/11/2024 22 - 33 HH CCT Sodium SerPl-sCnc 139.0 mmol/L Normal 11/11/2024 136 - 14 5 HHCCT Creat SerPl-mCnc 1.7 mg/dL Above high normal 11/11/2024 0.4 - 1.1 HHCCT Anion Gap Bld-sCnc 10.0 Normal 11/11/2024 7 - 17 HHCCT GFR/BSA.pred SerPlBld [id number] 36.0 Below low normal 11/11/2024 59 - HHCCT BUN SerPl-mCnc 33.0 mg/dL Above high normal 11/11/2024 8 - 2 1 HHCCT Chloride SerPl-sCnc 107.0 mmol/L Normal 11/11/2024 98 - 1 07 HHCCT Potassium SerPl-sCnc 3.8 mmol/L Normal 11/11/2024 3.4 - 5 .3 HHCCT Calcium SerPl-mCnc 8.8 mg/dL Normal 11/11/2024 8.7 - 10.5 HHCCT Glucose SerPl-mCnc 139.0 mg/dL Above high normal 11/11/2024 65 - 99 HHCCT BUN/Creat SerPl 19.0 Ratio Normal 11/11/2024 10 - 25 HH CCT ALT SerPl-cCnc 49.0 U/L Normal 11/11/2024 10 - 50 HHCC T Globulin Ser Calc-mCnc 3.9 g/dL Normal 11/11/2024 1.5 - 3.9 HHCCT ALP SerPl-cCnc 96.0 U/L Normal 11/11/2024 32 - 122 HHCC T Bilirub Direct SerPl-mCnc 0.3 mg/dL Above high normal 11/11/2024 0 - 0.2 HHCCT Bilirub SerPl-mCnc 0.8 mg/dL Normal 11/11/2024 0.2 - 1 HHCCT Albumin/Glob SerPl 0.9 Ratio Below low normal 11/11/2024 1 - 3 HHCCT Albumin SerPl-mCnc 3.5 g/dL Normal 11/11/2024 3.5 - 5 HHCCT AST SerPl-cCnc 36.0 U/L Normal 11/11/2024 10 - 50 HHCC T Prot SerPl-mCnc 7.4 g/dL Normal 11/11/2024 6.3 - 8.[address] Magnesium SerPl-mCnc 2.1 mg/dL Normal 11/11/2024 1.6 - 2. 7 HHCCT MCHC RBC Auto-mCnc 31.3 g/dL Normal 11/11/2024 30 - 36 HHCCT RBC num Bld Auto 3.52 Mil/uL Below low normal 11/11/2024 4 - 5.4 HHCCT MCV RBC Auto 84.0 fL Normal 11/11/2024 80 - 100 HHCCT PMV Bld Auto 9.8 fL Normal 11/11/2024 7.5 - 12.5 HHCCT Hct VFr Bld Auto 29.4 % Below low normal 11/11/2024 35 - 47 HHCCT MCH RBC Qn Auto 26.1 pg Below low normal 11/11/2024 27 - 3 1 HHCCT RDW RBC Auto-Rto 14.8 % Above high normal 11/11/2024 1 1.5 - 14.5 HHCCT Hgb Bld-mCnc 9.2 g/dL Below low normal 11/11/2024 11.7 - 15.7 HHCCT WBC num Bld Auto 7.7 Thou/uL Normal 11/11/2024 4 - 11 HHCCT Platelet num Bld Auto 193.0 Thou/uL Normal 11/11/2024 150 - 450 HHCCT POC Glucose 155.0 mg/dL Above high normal 11/11/2024 65 - 99 HHCCT POC Glucose 106.0 mg/dL Above high normal 11/10/2024 65 - 99 HHCCT POC Glucose 155.0 mg/dL Above high normal 11/10/2024 65 - 99 HHCCT P/F Ratio 137.0 Normal 11/10/2024 HHCCT pO2, Arterial 82.0 mmHG Normal 11/10/2024 75 - 95 HHCCT SaO2 % BldA 97.1 % Above high normal 11/10/2024 94 - 97 HHCCT Hgb Bld-mCnc 9.6 g/dL Below low normal 11/10/2024 11.7 - 15.7 HHCCT MetHgb MFr Bld 0.8 % Normal 11/10/2024 0.4 - 1.5 HHCC [address] O2 Ct VFr BldA Calc 12.9 mL/dL Below low normal 11/10/2024 15.7 - 21.6 H[facility]CT Total CO2, Arterial 20.0 mmol/L Below low normal 11/10/2024 22 - 28 H[facility]CT COHgb MFr Bld 1.7 % Normal 11/10/2024 0 - 2 H[facility]CT Base deficit BldA-sCnc 6.0 mmol/L Normal 11/10/2024 H[facility]CT pH, Arterial 7.33 Below low normal 11/10/2024 7.35 - 7.45 HHCCT pCO2, Arterial 37.0 mmHG Normal 11/10/2024 32 - 45 HH[facility] T Respiratory Information VENT 60% Normal 11/10/2024 H[facility]CT Phosphate SerPl-mCnc 4.3 mg/dL Normal 11/10/2024 2.7 - 4. 5 H[facility]CT Troponin T SerPl-mCnc 70.0 ng/L Critically high 11/10/2024 - 15 H[facility]CT Delta 9.0 Above high normal 11/10/2024 - 3 H HCCT Anion Gap Bld-sCnc 13.0 Normal 11/10/2024 7 - 17 H[facility]CT Calcium SerPl-mCnc 8.4 mg/dL Below low normal 11/10/2024 8.7 - 10.5 HHCCT Sodium SerPl-sCnc 137.0 mmol/L Normal 11/10/2024 136 - 14 5 HHCCT GFR/BSA.pred SerPlBld TGN-[id number]-[id number] 33.0 Below low normal 11/10/2024 59 - HHCCT BUN SerPl-mCnc 33.0 mg/dL Above high normal 11/10/2024 8 - 2 1 HHCCT BUN/Creat SerPl 18.0 Ratio Normal 11/10/2024 10 - 25 HH CCT Glucose SerPl-mCnc 154.0 mg/dL Above high normal 11/10/2024 65 - 99 HHCCT Potassium SerPl-sCnc 4.1 mmol/L Normal 11/10/2024 3.4 - 5 .3 HHCCT CO2 SerPl-sCnc 20.0 mmol/L Below low normal 11/10/2024 22 - 33 HHCCT Creat SerPl-mCnc 1.8 mg/dL Above high normal 11/10/2024 0.4 - 1.1 HHCCT Chloride SerPl-sCnc 104.0 mmol/L Normal 11/10/2024 98 - 1 07 CCT Magnesium SerPl-mCnc 1.6 mg/dL Normal 11/10/2024 1.6 - 2. 7 H[facility]CT Prothrombin time 13.2 seconds Normal 11/10/2024 10 - 13.5 CCT INR PPP 1.1 Normal 11/10/2024 [facility] Anticoagulant NO ANTI COAGULANT MEDS Normal 11/10/2024 [facility] S pneum Ag Ur Ql Presumptive Positive Abnormal 11/11/2024 - [facility] L pneumo Ag Spec Ql Presumptive Negative Normal - [facility] Result Not Detected Normal 11/10/2024 - [facility] Creat Ur-mCnc 19.0 mg/dL Normal 11/10/2024 [facility] T Sodium Ur-sCnc 108.0 mmol/L Normal 11/10/2024 H [facility] UUN Ur-mCnc 175.0 mg/dL Normal 11/10/2024 [facility] POC Glucose 198.0 mg/dL Above high normal 11/10/2024 65 - 99 CCT POC Glucose 177.0 mg/dL Above high normal 11/10/2024 65 - 99 [facility] HPIV4 RNA Nph Ql Non-probe PCR Not Detected Normal 11/10/2024 [facility] HPIV1 RNA Nph Ql Non-probe PCR Not Detected Normal 11/10/2024 [facility] HCoV HKU1 RNA Nph Ql Non-probe PCR Not Detected Normal 11/10/2024 [facility] HCoV NL63 RNA Nph Ql Non-probe PCR Not Detected Normal 11/10/2024 [facility] RSV RNA Nph Ql Non-probe PCR Not Detected Normal 11/10/2024 [facility] hMPV RNA Nph Ql Non-probe PCR Not Detected Normal 11/10/2024 [facility] 2019-nCOV RNA Not Detected Normal 11/10/2024 CCT B pert tox prom reg Nph Ql Non-probe PCR Not Detected Normal 11/10/2024 [facility] C pneum DNA Nph Ql Non-probe PCR Not Detected Normal 11/10/2024 [facility] HCoV 229E RNA Nph Ql Non-probe PCR Not Detected Normal 11/10/2024 CCT M pneumo DNA Nph Ql Non-probe PCR Not Detected Normal 11/10/2024 [facility] FLUBV RNA Nph Ql Non-probe PCR Not Detected Normal 11/10/2024 H[facility]CT Bordetella parapertussis Not Detected Normal 11/10/2024 [facility] HCoV OC43 RNA Nph Ql Non-probe PCR Not Detected Normal 11/10/2024 [facility] HPIV3 RNA Nph Ql Non-probe PCR Not Detected Normal 11/10/2024 [facility] HPIV2 RNA Nph Ql Non-probe PCR Not Detected Normal 11/10/2024 CCT FLUAV RNA Nph Ql Non-probe PCR Not Detected Normal 11/10/2024 [facility] RV+EV RNA Nph Ql Non-probe PCR Not Detected Normal 11/10/2024 CCT HAdV DNA Nph Ql Non-probe PCR Not Detected Normal 11/10/2024 CCT MetHgb MFr Bld 0.7 % Normal 11/10/2024 0.4 - 1.5 [facility] T Hgb Bld-mCnc 6.3 g/dL Below low normal 11/10/2024 11.7 - 15.7 HHCCT CO2 BldV-sCnc 23.0 mmol/L Normal 11/10/2024 23 - [address] COHgb MFr Bld 2.2 % Above high normal 11/10/2024 0 - 2 HHCCT pH BldV 7.24 Below low normal 11/10/2024 7.33 - 7.43 HHCCT SaO2 % BldV from pO2 91.1 % Normal 11/10/2024 [facility] pCO2 BldV 51.0 mmHG Above high normal 11/10/2024 35 - [address] VFr BldV Calc 5.6 mL/dL Below low normal 11/10/2024 7. 2 - 17.2 HHCCT pO2 BldV 65.0 mmHG Above high normal 11/10/2024 0 - 60 H HCCT Base deficit BldA-sCnc 5.7 mmol/L Normal 11/10/2024 [facility] Respiratory Information VENT 100% Normal 11/10/2024 [facility] SaO2 % BldA 99.1 % Above high normal 11/10/2024 94 - 97 H[facility]CT pCO2, Arterial 38.0 mmHG Normal 11/10/2024 32 - 45 [facility] T Total CO2, Arterial 20.0 mmol/L Below low normal 11/10/2024 22 - 28 HHCCT pH, Arterial 7.3 Below low normal 11/10/2024 7.35 - 7.[address] VFr BldA Calc 15.0 mL/dL Below low normal 11/10/2024 15.7 - 21.6 HHCCT Base deficit BldA-sCnc 7.0 mmol/L Normal 11/10/2024 HHCCT Hgb Bld-mCnc 10.8 g/dL Below low normal 11/10/2024 11.7 - 15.7 HHCCT MetHgb MFr Bld 0.7 % Normal 11/10/2024 0.4 - 1.5 HH[facility] T pO2, Arterial 141.0 mmHG Above high normal 11/10/2024 75 - 9 5 HHCCT COHgb MFr Bld 1.0 % Normal 11/10/2024 0 - 2 HHCCT P/F Ratio 353.0 Normal 11/10/2024 HHCCT Respiratory Information VENT 40% Normal 11/10/2024 HHCCT Procalcitonin SerPl EIA-mCnc 1.14 ng/mL Above high normal 11/10/2024 - 0.09 HHCCT pro BNP, N-terminal 2385.0 pg/mL Above high normal 5 - 125 HHCCT TSH SerPl DL<=0.005 mIU/L-aCnc 2.76 mIU/L Normal 11/10/2024 0.27 - 4.2 HHCCT Troponin T SerPl-mCnc 79.0 ng/L Critically high 11/10/2024 - 15 HHCCT Delta NO PREVIOUS RESULT Normal 11/10/2024 - 3 HHCCT Trigl SerPl-mCnc 210.0 mg/dL Above high normal 11/10/2024 - 150 HHCCT Bilirub SerPl-mCnc 0.6 mg/dL Normal 11/10/2024 0.2 - 1 HHCCT Creat SerPl-mCnc 1.8 mg/dL Above high normal 11/10/2024 0.4 - 1.1 HHCCT BUN/Creat SerPl 17.0 Ratio Normal 11/10/2024 10 - 25 HH CCT Chloride SerPl-sCnc 104.0 mmol/L Normal 11/10/2024 98 - 1 07 HHCCT ALT SerPl-cCnc 54.0 U/L Above high normal 11/10/2024 10 - 5 0 HHCCT Glucose SerPl-mCnc 217.0 mg/dL Above high normal 11/10/2024 65 - 99 HHCCT Potassium SerPl-sCnc 4.0 mmol/L Normal 11/10/2024 3.4 - 5 .3 HHCCT Albumin/Glob SerPl 0.9 Ratio Below low normal 11/10/2024 1 - 3 HHCCT Albumin SerPl-mCnc 3.4 g/dL Below low normal 11/10/2024 3.5 - 5 HHCCT AST SerPl-cCnc 46.0 U/L Normal 11/10/2024 10 - 50 HH[facility] T GFR/BSA.pred SerPlBld LVB-IOO-VoOLol 33.0 Below low normal 11/10/2024 59 - HHCCT Anion Gap Bld-sCnc 14.0 Normal 11/10/2024 7 - 17 HHCCT BUN SerPl-mCnc 31.0 mg/dL Above high normal 11/10/2024 8 - 2 1 HHCCT CO2 SerPl-sCnc 19.0 mmol/L Below low normal 11/10/2024 22 - 33 HHCCT Prot SerPl-mCnc 7.1 g/dL Normal 11/10/2024 6.3 - 8.[address] Sodium SerPl-sCnc 137.0 mmol/L Normal 11/10/2024 136 - 14 5 HHCCT ALP SerPl-cCnc 109.0 U/L Normal 11/10/2024 32 - 122 HHCC T Calcium SerPl-mCnc 8.5 mg/dL Below low normal 11/10/2024 8.7 - 10.5 HHCCT Globulin Ser Calc-mCnc 3.7 g/dL Normal 11/10/2024 1.5 - 3.9 HHCCT MCV RBC Auto 85.0 fL Normal 11/10/2024 80 - 100 HHCCT Platelet num Bld Auto 361.0 Thou/uL Normal 11/10/2024 150 - 450 HHCCT Imm Granulocytes/leuk NFr Bld Auto 0.8 % Normal 11/10/2024 HHCCT WBC num Bld Auto 13.2 Thou/uL Above high normal 11/10/2024 4 - 11 HHCCT Monocytes/leuk NFr Bld Auto 9.5 % Normal 11/10/2024 HHCCT Basophils/leuk NFr Bld Auto 0.3 % Normal 11/10/2024 HHCCT Imm Granulocytes num Bld Auto 0.11 Thou/uL Above high normal 11/10/2024 0 - 0.1 HHCCT RDW RBC Auto-Rto 14.5 % Normal 11/10/2024 11.5 - 14.5 HHCCT Neutrophils/leuk NFr Bld Auto 71.7 % Normal 11/10/2024 HHCCT Lymphocytes num Bld Auto 2.31 Thou/uL Normal 11/10/2024 1.5 - 4.5 HHCCT Eosinophil/leuk NFr Bld Auto 0.1 % Normal 11/10/2024 HHCCT PMV Bld Auto 10.1 fL Normal 11/10/2024 7.5 - 12.5 HHCCT MCHC RBC Auto-mCnc 31.2 g/dL Normal 11/10/2024 30 - 36 HHCCT Hct VFr Bld Auto 33.7 % Below low normal 11/10/2024 35 - 47 HHCCT Basophils num Bld Auto 0.04 Thou/uL Normal 11/10/2024 0 - 0.2 HHCCT Neutrophils num Bld Auto 9.44 Thou/uL Above high normal 11/10/2024 2 - 7.5 HHCCT RBC num Bld Auto 3.98 Mil/uL Below low normal 11/10/2024 4 - 5.4 HHCCT Monocytes num Bld Auto 1.25 Thou/uL Normal 11/10/2024 0.2 - 1.5 HHCCT Lymphocytes/leuk NFr Bld Auto 17.6 % Normal 11/10/2024 HHCCT Hgb Bld-mCnc 10.5 g/dL Below low normal 11/10/2024 11.7 - 15.7 HHCCT MCH RBC Qn Auto 26.4 pg Below low normal 11/10/2024 27 - 3 1 HHCCT Eosinophil num Bld Auto 0.01 Thou/uL Normal 11/10/2024 0 - 0.7 HHCCT Lactate SerPl-sCnc 1.3 mmol/L Normal 11/10/2024 0.5 - 1.9 CCT POC Glucose 237.0 mg/dL Above high normal 11/10/2024 65 - 99 CCT History of Medication Use Medication Directions Dispensed Refills Start Date End Date Stat apixaban (ELIQUIS) 5 MG tablet Take 1 tablet (5 mg total) by mouth every 12 (twelve) hours around the clock. Do not start before November 22, 2024. 11/22/2024 active apixaban (ELIQUIS) 5 MG tablet Take 2 tablets (10 mg total) by mouth every 12 (twelve) hours around the clock. 11/18/2024 active carvedilol (COREG) 6.25 MG tablet Take 2 tablets (12.5 mg total) by mouth 2 times a day. 11/18/2024 active empagliflozin (JARDIANCE) 10 MG tablet Take 1 tablet (10 mg total) by mouth daily. 11/18/2024 active ferrous sulfate 325 (65 FE) MG EC tablet Take 1 tablet (325 mg total) by mouth daily. Take 2 hours before or 4 hours after acid reducers. 11/18/2024 active furosemide (LASIX) 20 MG tablet Take 2 tablets (40 mg total) by mouth daily. 11/18/2024 active sacubitril-valsartan (ENTRESTO) 24-26 mg per tablet Take 1 tablet by mouth 2 (two) times a day. 11/18/2024 active glipiZIDE (GLUCOTROL) 10 MG tablet 1 tablet (10 mg total) by Mouth/Oral Cavity route every 12 hours. 10/22/2024 suspended sodium bicarbonate 650 MG tablet 1 tablet (650 mg total) by Mouth/Oral Cavity route every 12 hours. 09/29/2024 suspended amLODIPine (NORVASC) 10 MG tablet Take 1 tablet (10 mg total) by mouth 2 times a day. suspended Aspirin Low Dose 81 MG EC tablet Take 1 tablet (81 mg total) by mouth daily. suspended atorvastatin (LIPITOR) 40 MG tablet Take 1 tablet (40 mg total) by mouth nightly. suspended carvedilol (COREG) 6.25 MG tablet Take 1 tablet (6.25 mg total) by mouth 2 times a day. suspended famotidine (PEPCID) 20 MG tablet Take 1 tablet (20 mg total) by mouth nightly. suspended levothyroxine (SYNTHROID, LEVOTHROID) 137 MCG tablet Take 137 mcg by mouth every morning. suspended lisinopril (PRINIVIL,ZeSTRIL) 40 MG tablet Take 1 tablet (40 mg total) by mouth daily. suspended metFORMIN (GLUCOPHAGE-XR) 500 MG 24 hr tablet Take 2 tablets (1,000 mg total) by mouth 2 times a day. suspended metoPROLOL TARTRATE (LOPRESSOR) 100 MG tablet Take 1 tablet (100 mg total) by mouth 2 times a day. suspended Trulicity 1.5 MG/0.5ML prefilled pen injection Inject 1.5 mg under the skin once a week. suspended Problems Problem Status Onset Date Problem Type Date of Resoluti on Source Cardiac arrest active 2024-11-10 ProblemAct [facility] Encounters Encounter Type Encounter Reason Primary Diagnosis Location Date Inpatient Acute respiratory failure, unspecified whether with hypoxia or hypercapnia Acute respiratory failure, unspecified whether with hypoxia or hypercapnia [employer] 11/10/2024 [facility] [employer] 11/10/2024 Ambulatory [place] [employer] [facility] [employer] 11/10/2024 Ambulatory Cardiac Arrest Cardiac Arrest [facility] 09/16/2024 Care Team Organization Name Specialty Phone Email Start Date End Da te [employer] [facility] 10/05/2024 12/15/2024 [place] [employer] 09/16/2024
== END 2025-03-01 12:11 | disposition home or self-care (01) ==
LOC: HO.HKA 11:59
PROVIDERS: PCP Internal Medicine; Visit Provider Internal Medicine Hypertension Specialist
DX: E11.40 Type 2 diabetes mellitus with diabetic neuropathy, unspecified (principal); R80.1 Persistent proteinuria, unspecified; I12.9 Hypertensive chronic kidney disease with stage 1 through stage 4 chronic kidney disease, or unspecified chronic kidney disease; N18.9 Chronic kidney disease, unspecified
CPT/HCPCS: 99214

== ENCOUNTER → 2025-03-01 11:58 | Outpatient (BNVA) | payer OTHER, SELFPAY | PROVIDERS: PCP Internal Medicine; Visit Provider Internal Medicine Hypertension Specialist | DX: E11.22 Type 2 diabetes mellitus with diabetic chronic kidney disease (principal); E11.40 Type 2 diabetes mellitus with diabetic neuropathy, unspecified; R80.9 Proteinuria, unspecified; I10 Essential (primary) hypertension; I50.9 Heart failure, unspecified | CPT/HCPCS: 99212 ==

== ENCOUNTER 2025-05-20 15:10 | Outpatient (AMB) | payer OTHER, SELFPAY ==
--- OUTSIDE RECORDS SUMMARY | 2025-05-20 15:12 | XMS_ITS | Clinical Summary ---
Author Organization [facility] Address [address] [place] [address] Care Team Providers Care Kindergarten Aide Name Role Phone Unavailable Primary Care Provider [...] Years Used Date Smoking Tobacco: Never Assessed [facility] Utilities Answer Date Recorded In the past 12 months has e [employer], [employer], or water [employer] threatened to shut off services in your [...] any time in the past [facility], were you homeless or living in a longterm (including now)? Patient unable to answer 11/12/2024 [...] Vaccine (1 of 2) 2021 Influenza Vaccine 04/01/2025 COVID-19 Vaccine (1 - season) 2025 HIV Screening Completed 11/11/2024 Procedures Procedure Name Priority Date/Time Associated Diagnosis Comments HIV 1/2 AG/AB CMIA REFLEX TO CONFIRMATION Routine 11/11/2024 11:24 AM EDT from Last 3 Months or Most Recently Relevant to Health Maintenance Results * HIV 1/2 Ag/Ab CMIA Reflex to Confirmation (11/11/2024 11:24 AM EDT) HIV 1/2 Ag/Ab CMIA Nonreactive Nonreactive 11/12/2024 10:[address] [facility] Comment: Results show [...] Elinor FONTANA LAB BLOOD ORDERABLES Final Result [facility] [address] [place] [address], from Last 3 Months or Most Recently Relevant to Health Maintenance Insurance [employer] Advance Directives * Full Code (Latest Code Status on File) Date Activated Date Inactivated Comments 11/10/2024 7:51 AM Healthcare Agents on File Name Relationship Healthcare Agent [facility] Communication Scott Powell Adult child 4. Next of Kin ( Spouse, Adult Child, Parent, Adult Sibling, Grandparent) Benito Lopezda Adult child 4. Next of Kin ( Spouse, Adult Child, Parent, Adult Sibling, Grandparent) Alfred Rios Adult child 4. Next of Kin (Spouse, Adult Child, Parent, Adult Sibling, Grandparent)
--- OUTSIDE RECORDS SUMMARY | 2025-05-20 15:12 | XMS_ITS | Clinical Summary ---
Author Organization [facility] Address [address] [facility] [address] [place] [address] Phone Care Team Providers Care Director Talent Management Name Role Phone Phill Banuelos MD Primary Care Provider [phone] Allergies Active Allergy Reactions Criticality Noted Date [...] 01/21/2022, 09/28/2020, Additional history exists Influenza Vaccine (#1) 2025 Procedures Procedure Name Priority Date/Time Associated [...] 10.1 8.7 - 10.7 mg/dL eGFR Non-Afr Cameroonian 48 Magnesium 1.6 1.6 - 2.4 Hemoglobin A1C 11.5(A) 4.0 - 6.0 01/21/2022 [facility] Provider LAB BLOOD ORDERABLES Amarilis l Result from Last 3 Months or Most Recently Relevant to Health Maintenance Insurance Medicaid Medicaid [facility] Medicaid Care Teams Director Talent Management Relationship Specialty Start Date End Date Phill Banuelos MD [address] [place] [address] [id number] [place], [place] PCP - General Internal Medicine 04/26/21
--- NOTE | 2025-05-20 15:29 | A.OFFPC_ITS ---
Vital Signs 05/20/25 15:30 Height 5 ft 1 in Weight 88.451 kg BMI 36.8 BP 102/66 Pulse 71 Pulse Source Pulse Oximeter Temp 96.8 F Temp Source Temporal Artery Scan Pulse Oximetry (%) 99 Oxygen Delivery Method Room Air Intake Visit Reasons: 4 Month F/U - see comments Bed Teacher Required: No Accompanied by: Mother Allergies shellfish derived (SHELLFISH DERIVED) Allergy (Severe, Verified 05/20/25 15:29) ANAPHALAXIS klein (cherries) Allergy (Intermediate, Verified 05/20/25 15:32) Itchy Throat Iodinated Contrast Media (IODINATED CONTRAST MEDIA - IV DYE) Allergy (Unknown, Verified 05/20/25 15:29) CAN NOT HAVE DUE TO SHELLFISH ALLERGY Medication List - Last Reconciled 05/20/25 by ADDI Pearl [( Hitchcock toilet shaped toilet seat ) As directed] [2 grab bars 16 inches As directed] apixaban (Eliquis) 5 mg PO BID ascorbic acid (vitamin C) 250 mg PO DAILY aspirin 81 mg PO DAILY atorvastatin 40 mg PO DAILY blood sugar diagnostic (FreeStyle Lite Strips) As directed twice a day carvedilol 12.5 mg PO BID cholecalciferol (vitamin D3) 1,250 mcg PO QWEEK dulaglutide (Trulicity) 1.5 mg subcut Q7D empagliflozin (Jardiance) 10 mg PO DAILY famotidine 20 mg PO DAILY ferrous sulfate 325 mg PO DAILY levothyroxine 137 mcg PO DAILY 30 days sacubitril-valsartan 97-103 mg (Entresto) 1 tab PO BID spironolactone 25 mg PO DAILY triamcinolone acetonide 0.1% 1 appl topical BID [weight scale Weight yourself daily with visiting nurse; ] Tobacco use date assessed: 01/28/25 Dental Screening Dental Screen Date: 01/28/25 HPI HPI Comments History of Present Illness Details 54-year-old female with history of coron ame artery disease, CHF, CKD stage 3, type 2 diabetes, hypertension, hyperlipidemia, obesity among others presents to the office today for management of chronic conditions. Accompanied by her mother Type 2 diabetes-last A1c 6.2%. Reports significant changes in her diet which is also assess and weight loss. She is compliant with Trulicity 1.5 mg weekly, Jardiance 10 mg daily. Up-to-date with diabetic eye exams. Needs a new glucometer CAD/Diastolic Hear Failure- s/p cardiac arrest 09/15/24 abd 11/10/24. s/p pacer/icd placed 02/16, doing well. Completed cardiac rehab. Following with [facility] Hypertension-blood pressure in the office 102/66. Compliant with spironolactone 25 mg, carvedilol 6.25 mg b.i.d.. CKD stage III-slight drop in GFR to 35 with bump in creatinine to 1.55. She is following with Nephrology Vitamin D deficiency- D3 level May <8 Hypothyroidism-compliant with levothyroxine. Last TSH 0.64. Concerns: Itchy skin with rash on L forearm. Scabbing but no other drainage. x3 days ROS: see hpi EXAM: Constitutional - Awake and Alert, No apparent distress Eyes - PERRLA, EOMI Cardiovascular - S1S2, RRR, No edema Respiratory - Normal lung expansion, Normal respiratory effort, No respiratory distress, CTA bilaterally Extremities - no calf tenderness bilaterally, no swelling Skin - Warm/Dry. Flesh-colored papular lesions with some excoriation on the dorsum of the left forearm Neurological - Alert & oriented x3 Psychological - Appropriate affect [facility] Medical History (Updated 05/20/25 @ 16:03 by ADDI Pearl) History of sudden cardiac arrest Obesity Cardiac defibrillator in place Type 2 diabetes mellitus with diabetic neuropathy, unspecified Hypothyroidism Vitamin D deficiency HLD (hyperlipidemia) HTN (hypertension) T2DM (type 2 diabetes mellitus) Surgical History (Updated 05/20/25 @ 16:03 by ADDI Pearl) AICD (automatic cardioverter/defibrillator) present History of cholecystectomy Hx of section Family History Father Hypertension Heart disease Mother Breast cancer Family history of thyroid problem Social History Housing: Apartment Alcohol intake: former Patient Tobacco Use Status: Never used Tobacco e-Cigarette/Vaping Use: Never Used service: No Current occupational status: unemployed Cognitive needs: Yes (cane) Hearing needs: No Vision needs: Yes (rx contacts) Questionnaire Thrive Questionnaire Date Thrive assessed: 01/28/25 NATHANIEL-7 AMB Questionnaire NATHANIEL-7 Date NATHANIEL - 7 assessed: 01/28/25 Source: Developed by DrsGerard De Paz, Ruth Ann Andre, Devan Chen and colleagues, with an educational doug from [employer]. Physical exam (Primary Care) Vital Signs: Last Vital Signs Temp 96.8 F 05/20/25 15:30 Pulse 71 05/20/25 15:30 BP 102/66 05/20/25 15:30 Pulse Ox 99 05/20/25 15:30 Oxygen Delivery Method Room Air 05/20/25 15:30 BMI result Body Mass Index 36.8 Tobacco/Smoking Status: Tobacco use Status Tobacco use date assessed 01/28/25 05/20/25 15:34 Patient Tobacco Use Status Never used Tobacco 05/20/25 15:34 e-Cigarette/Vaping Use Never Used 05/20/25 15:34 Thrive Assessment: Date of Thrive Assessment Date Thrive assessed 01/28/25 05/20/25 15:34 Coding Level of Care Code Est Pt Level 4 (53516) Complex EM visit Add On G2211 Diagnoses Hypertension, unspecified type I10 Hypertension type: unspecified Diastolic dysfunction I51.89 Coronary artery disease involving havasupai coronary artery of havasupai heart, unspecified whether angina present I25.10 Coronary Disease-Associated Artery/Lesion type: havasupai artery [place] vs. transplanted heart: havasupai heart Associated angina: unspecified whether angina present Type 2 diabetes mellitus with diabetic neuropathy, without long-term current use of insulin E11.40 Diabetes mellitus longitudinal float operator insulin use: without longitudinal float operator use Obesity E66.9 Assessment & Plan Assessment & Plan (1) HTN (hypertension): Code(s): I10 - Essential (primary) hypertension Category: Medical Qualifiers: Hypertension type: unspecified Qualified Code(s): I10 - Essential (primary) hypertension Plan: Controlled. Continue current therapies (2) Diastolic dysfunction: Code(s): I51.89 - Other ill-defined heart diseases Category: Medical Plan: Continue Entresto, Jardiance, spironolactone, carvedilol. Scale ordered for patient to help with daily weights (3) CAD (coronary artery disease): Code(s): I25.10 - Atherosclerotic heart disease of havasupai coronary artery without angina pectoris Category: Medical Qualifiers: Coronary Disease-Associated Artery/Lesion type: havasupai artery [place] vs. transplanted heart: havasupai heart Associated angina: unspecified whether angina present Qualified Code(s): I25.10 - Atherosclerotic heart disease of havasupai coronary artery without angina pectoris Plan: S/p cardiac arrest x2 now with AICD in place. Continue following with [facility]. Take medications as prescribed (4) Type 2 diabetes mellitus with diabetic neuropathy, unspecified: Code(s): E11.40 - Type 2 diabetes mellitus with diabetic neuropathy, unspecified Category: Medical Qualifiers: Diabetes mellitus longitudinal float operator insulin use: without group home use Qualified Code(s): E11.40 - Type 2 diabetes mellitus with diabetic neuropathy, unspecified Plan: A1c ordered. Continue Sebastian Arteaga. Diabetic diet advised (5) Obesity: Code(s): E66.9 - Obesity, unspecified Category: Medical Plan: Continue with weight loss efforts. Diet rich in protein, fruits, vegetables emphasized and lower in refined sugars, simple carbohydrates, highly processed f oods. Recommend gradual increase in exercise/walking as directed by cardiac rehab Plan Follow-up in 3 months. Labs to be completed today. Orders: Orders Basic Metabolic Panel Today E03.9 - Hypothyroidism, unspecified, E11.40 - Type 2 diabetes mellitus with diabetic neuropathy, unspecified, E78.5 - Hyperlipidemia, unspecified, I10 - Essential (primary) hypertension, I25.10 - Atherosclerotic heart disease of havasupai coronary artery without angina pectoris Complete Blood Count Auto Diff Today D50.9 - Iron deficiency anemia, unspecified Hemoglobin A1c Today E03.9 - Hypothyroidism, unspecified, E11.40 - Type 2 diabetes mellitus with diabetic neuropathy, unspecified, E78.5 - Hyperlipidemia, unspecified, I10 - Essential (primary) hypertension, I25.10 - Atherosclerotic heart disease of havasupai coronary artery without angina pectoris IRON PROFILE Today E03.9 - Hypothyroidism, unspecified, E11.40 - Type 2 diabetes mellitus with diabetic neuropathy, unspecified, E78.5 - Hyperlipidemia, unspecified, I10 - Essential (primary) hypertension, I25.10 - Atherosclerotic heart disease of havasupai coronary artery without angina pectoris Lipid Panel Today E03.9 - Hypothyroidism, unspecified, E11.40 - Type 2 diabetes mellitus with diabetic neuropathy, unspecified, E78.5 - Hyperlipidemia, unspecified, I10 - Essential (primary) hypertension, I25.10 - Atherosclerotic heart disease of havasupai coronary artery without angina pectoris TSH reflex Free T4 Today E03.9 - Hypothyroidism, unspecified, E11.40 - Type 2 d iabetes mellitus with diabetic neuropathy, unspecified, E78.5 - Hyperlipidemia, unspecified, I10 - Essential (primary) hypertension, I25.10 - Atherosclerotic heart disease of havasupai coronary artery without angina pectoris Medications: New cholecalciferol (vitamin D3) 1,250 mcg PO QWEEK 8 caps 0RF [weight scale] Weight yourself daily with visiting nurse; 1 ea 0RF E66.9 - Obesity, unspecified, I51.89 - Other ill-defined heart diseases, Z91.81 - H istory of falling triamcinolone acetonide 0.1% 1 appl topical BID 30 grams 1RF
[2025-05-20 15:30] VITALS: BP 102/66; PULSE 71; TEMP 36; O2SAT 99; BMI 36.8
== END 2025-05-20 16:01 | disposition home or self-care (01) ==
LOC: HO.HMCHD 15:10
PROVIDERS: PCP Internal Medicine; Visit Provider Physician Assistant
DX: I10 Essential (primary) hypertension (principal); I51.89 Other ill-defined heart diseases; I25.10 Atherosclerotic heart disease of native coronary artery without angina pectoris; E11.40 Type 2 diabetes mellitus with diabetic neuropathy, unspecified; E66.9 Obesity, unspecified

== ENCOUNTER → 2025-05-20 15:10 | Outpatient (BNVA) | payer OTHER, SELFPAY | PROVIDERS: PCP Internal Medicine; Visit Provider Physician Assistant | DX: I13.0 Hypertensive heart and chronic kidney disease with heart failure and stage 1 through stage 4 chronic kidney disease, or unspecified chronic kidney disease (principal); E11.22 Type 2 diabetes mellitus with diabetic chronic kidney disease; N18.30 Chronic kidney disease, stage 3 unspecified; I50.30 Unspecified diastolic (congestive) heart failure; I25.10 Atherosclerotic heart disease of native coronary artery without angina pectoris; E11.40 Type 2 diabetes mellitus with diabetic neuropathy, unspecified; E66.9 Obesity, unspecified; Z68.36 Body mass index [BMI] 36.0-36.9, adult; E03.9 Hypothyroidism, unspecified; Z86.74 Personal history of sudden cardiac arrest; Z79.899 Other long term (current) drug therapy | CPT/HCPCS: 99212 ==

== ENCOUNTER 2025-06-29 14:04 | Outpatient (REF) | payer OTHER, SELFPAY ==
[2025-06-29 14:32] LABS: MANUAL DIFF FLAG NO
[2025-06-29 15:01] LABS: Hematocrit 36.4 % (37.0-47.0); Hemoglobin 10.8 g/dl (12.0-16.0); Imm Gran Abs Auto 0.02 X10*3/uL (0.00-0.03); Imm Gran Pct Auto 0.4 % (0.0-0.4); Lymphocytes Absolute Auto 1.6 X10*3/uL (1.2-4.9); Mean Corpuscular HGB Conc 29.7 g/dl (31.0-35.0); Mean Corpuscular Hemoglobin 24.4 pg (27.0-33.0); Mean Corpuscular Volume 82.2 fL (80.0-98.0); NRBC Abs Auto 0.000 X10*3/uL (0.0-0.012); NRBC Pct Auto 0.0 /100WBC (0.0-0.2); Platelet Count 224 X10*3/uL (160-400); Red Blood Count 4.43 X10*6/uL (4.20-5.50); White Blood Count 5.0 X10*3/uL (4.8-10.8)
[2025-06-29 15:03] LABS: Appearance Urine Clear; Glucose Urine UA 500 mg/dL (Negative); PH 5.5 (5.0-9.0); Specific Gravity - Urine 1.015 (1.005-1.025); UMIC TRIGGER UA YES
[2025-06-29 15:45] LABS: Anion Gap 10 (12-20); Blood Urea Nitrogen 43 mg/dL (9-16); Calcium 9.6 mg/dL (8.4-10.2); Carbon Dioxide 23 mmol/L (22-29); Chloride 110 mmol/L (96-108); Cholesterol 124 mg/dL (<200); Estimated Glomerular Filt Rate 38; HDL Cholesterol 27 mg/dL (>40); Iron 45 mcg/dL (30-160); Percent Iron Saturation 18 % (15-50); Potassium 5.4 mmol/L (3.3-5.1); Sodium 138 mmol/L (135-145); Total Iron Binding Capacity 253 mcg/dL (228-428); Triglycerides 125 mg/dL (<150); Unsaturated Iron Binding 208 ug/dL
[2025-06-29 17:15] LABS: Free T4 (Free Thyroxine) 1.35 ng/dL (0.71-1.85)
--- OUTSIDE RECORDS SUMMARY | 2025-06-29 18:07 | XMS_ITS | Clinical Summary ---
Author Organization [facility] Address [address] [facility] [address] [place] [address] Phone Care Team Providers Care Exhaust Emissions Inspector Name Role Phone Phill Banuelos MD Primary Care Provider [phone] Allergies Active Allergy Reactions Criticality Noted Date [...] disorder due to type 2 diabetes mellitus <Unspecified DM Medication; Diabetic nephropathy> (HCC),Persistent proteinuria,Essen tial hypertension TAKE 1 [...] Visual Foot Exam 10/02/2020 Diabetes: Hemoglobin A1C 02/12/202511/12/ 025, 01/21/2022, 09/28/2020, Additional history exists Influenza [...] 10.1 8.7 - 10.7 mg/dL eGFR Non-Afr Chinese 48 Magnesium 1.6 1.6 - 2.4 Hemoglobin A1C 11.5(A) 4.0 - 6.0 01/21/2022 Historical Provider LAB BLOOD ORDERABLES Amarilis l Result from Last 3 Months or Most Recently Relevant to Health Maintenance Insurance Medicaid Medicaid [facility] Medicaid Care Teams Exhaust Emissions Inspector Relationship Specialty Start Date End Date Phill Banuelos MD [address] [place] [address] [address] [place], [place] PCP - General Internal Medicine 04/26/21
--- OUTSIDE RECORDS SUMMARY | 2025-06-29 18:07 | XMS_ITS | Clinical Summary ---
Author Organization [facility] Address [address] [place] [address] Care Team Providers Care Landscape Gardener Name Role Phone Unavailable Primary Care Provider [...] Years Used Date Smoking Tobacco: Never Assessed [facility] Utilities Answer Date Recorded In the past 12 months has e [employer], [employer], or water [employer] threatened to shut off services in your [...] any time in the past 12 m [facility], were you homeless or living in a fdc (including now)? Patient unable to answer 11/12/2024 [...] 50+ (1 of 1 - PCV) 2021 RSV Vaccine 50 years and old er and Patients (1 - Risk 50-74 years 1-dose series) 2021 Zoster (Shingles) Vaccine (1 of 2) [...] CMIA Nonreactive Nonreactive 11/12/2024 10:22 AM EDT [facility] Comment: Results show no evidence [...] Elinor FONTANA LAB BLOOD ORDERABLES Final Result [facility] [address] [place] [address], from Last 3 Months or Most Recently Relevant to Health Maintenance Insurance [facility] Advance Directives * Full Code (Latest Code Status on File) Date Activated Date Inactivated Comments 11/10/2024 7:51 AM Healthcare Agents on File Name Relationship Healthcare Agent Relationshi p Communication Scott Powell Adult child 4. Next of Kin ( Spouse, Adult Child, Parent, Adult Sibling, Grandparent) Benito Lopezda Adult child 4. Next of Kin ( Spouse, Adult Child, Parent, Adult Sibling, Grandparent) Alfred Rios Adult child 4. Next of Kin (Spouse, Adult Child, Parent, Adult Sibling, Grandparent)
== END 2025-06-29 14:05 | disposition home or self-care (01) ==
LOC: HO.LAB 14:04
PROVIDERS: Absent Provider Internal Medicine Hypertension Specialist; PCP Internal Medicine; Visit Provider Physician Assistant
DX: I10 Essential (primary) hypertension (principal); I25.10 Atherosclerotic heart disease of native coronary artery without angina pectoris; E78.5 Hyperlipidemia, unspecified; E11.40 Type 2 diabetes mellitus with diabetic neuropathy, unspecified; E03.9 Hypothyroidism, unspecified; D50.9 Iron deficiency anemia, unspecified
CPT/HCPCS: 36415; 80048; 80061; 81001; 81003; 83036; 83540; 84439; 84443; 85025

== ENCOUNTER 2025-06-30 11:54 | Outpatient (AMB) | payer OTHER, SELFPAY ==
[2025-06-30 11:57] VITALS: BP 126/72; PULSE 88; O2SAT 98; BMI 37.4
--- NOTE | 2025-06-30 11:57 | HO.NEPHOV ---
Vital Signs 06/30/25 11:57 Height 5 ft 1 in Weight 198 lb BMI 37.4 BP 126/72 Blood Pressure Location Rt brachial Position Sitting Pulse 88 Pulse Source Pulse Oximeter Pulse Oximetry (%) 98 Oxygen Delivery Method Room Air Intake Visit Reasons: 3mon follow-up confir Fire Protection Equipment Technician Required: No Accompanied by: Self / Same As Patient Allergies shellfish derived (SHELLFISH DERIVED) Allergy (Severe, Verified 06/30/25 11:59) ANAPHALAXIS klein (cherries) Allergy (Intermediate, Verified 06/30/25 11:59) Itchy Throat Iodinated Contrast Media (IODINATED CONTRAST MEDIA - IV DYE) Allergy (Unknown, Verified 06/30/25 11:59) CAN NOT HAVE DUE TO SHELLFISH ALLERGY Medication List - Last Reconciled 06/30/25 by Nacho Rivas MD [( [place] toilet shaped toilet seat ) As directed] [2 grab bars 16 inches As directed] apixaban (Eliquis) 5 mg PO BID ascorbic acid (vitamin C) 250 mg PO DAILY aspirin 81 mg PO DAILY atorvastatin 40 mg PO DAILY blood sugar diagnostic (Accu-Chek Guide test strips) As directed. Check fasting glucose daily blood sugar diagnostic (FreeStyle Lite Strips) Use to check fasting glucose daily blood-glucose meter (FreeStyle Lite Meter kit) Check fasting glucose daily; carvedilol 12.5 mg PO BID cholecalciferol (vitamin D3) 1,250 mcg PO QWEEK dulaglutide (Trulicity) 1.5 mg subcut Q7D empagliflozin (Jardiance) 10 mg PO DAILY famotidine 20 mg PO DAILY ferrous sulfate 325 mg PO DAILY lancets (Accu-Chek Safe-T-Pro Plus) As directed. Check fasting glucose daily lancets (Accu-Chek Fastclix Lancet Drum) Check fasting glucose daily levothyroxine 137 mcg PO DAILY 30 days sacubitril-valsartan 97-103 mg (Entresto) 1 tab PO BID spironolactone 25 mg PO DAILY triamcinolone acetonide 0.1% 1 appl topical BID [weight scale Weight yourself daily with visiting nurse; ] HPI Comments Details: Pt is a 53 y/o female with a medical history of CKD stage 3a, proteinuria, uncontrolled DMII, HTN, RLS, GERD, hypercholesterolemia, morbid obesity, hx of cholecystectomy. Some diastolic dysfunction 2/2 HTN per cardiology in 2021 based on echo. She was referred by her PCP Dr Banuelos for proteinuria. History of ongoing proteinuria since at least 2018, DMII longstanding microalbumin to creatinine ratio 1404 in January, she has been elevated since at least 2018 (at that time ratio was 1596) reports she recently lost 25lbs by losing more vegetables, cut down on rice to once weekly as well but still could improve, bread is my weakness. no shortness of breath no chest pain denies urinary symptoms- no burning, frequency, urgency, nocturia, blood in urine or flank pain. She underwent renal ultrasonogram which was reportedly normal 11/21/2024. Two weeks ago she had cardiac arrest and resuscitated. Transferred to [facility] Waiting for cardiac evaluation. She is off chlorthalidone. Currently on Lasix 20 mg a day. She has no cardiology follow up 01/11/25 54-year-old female presenting with medication management and laboratory monitoring following recent adjustments in heart failure and hypertension therapy. Changes in her therapeutic regimen include the addition of spironolactone/Entresto and removal of amlodipine. This adjustment was conducted by her ortho/prosthetic aide in [facility]. Since the medication changes, she has maintained stable functionality without respiratory compromise or indications of hyperkalemia. The necessity for laboratory evaluations is emphasized to ascertain kidney function stability and monitor for increased potassium levels due to spironolactone administration. The patient confirms adherence to medications and notes minor fluctuations in weight without significant variation observed. 03/01/25 The patient is a 54-year-old female presenting with concerns regarding kidney function management. She has a history of chronic kidney disease with fluctuating function between 35 to 40%, influenced by her cardiac condition. The patient underwent defibrillator implantation on February 16, which has improved her overall well-being and breathing. Her weight has remained stable at 190 pounds, and she denies any swelling in her legs or difficulty with urination. Blood pressure readings have been favorable, and no recent changes in medication were noted except for a slight adjustment in her regimen. The patient has diabetes mellitus, which is currently well-controlled with medications including Trulicity and Jardiance. She adheres to dietary recommendations to avoid high potassium foods, consuming strawberries and blackberries in moderation. 10/30/25 The patient is a 54-year-old female presenting with chronic kidney disease management. Her kidney function has shown improvement from a glomerular filtration rate (GFR) of 35 in December to 38 currently. The patient is also experiencing hyperkalemia, with a potassium level of 5.4 mmol/L, which is attributed to her current medication regimen including Entresto and spironolactone. The patient has a history of anemia, which has remained stable over the past six months despite being slightly anemic. She is on a regimen of iron supplementation every other day to manage this condition. The patient also has a history of hypertension and type 2 diabetes mellitus. Her blood pressure and blood glucose levels have been well-controlled with her current medication regimen, which includes Eliquis, atorvastatin, carvedilol, Trulicity, and Jardiance. [facility] Medical History (Updated 05/20/25 @ 16:03 by ADDI Pearl) History of sudden cardiac arrest Obesity Cardiac defibrillator in place Type 2 diabetes mellitus with diabetic neuropathy, unspecified Hypothyroidism Vitamin D deficiency HLD (hyperlipidemia) HTN (hypertension) T2DM (type 2 diabetes mellitus) Surgical History AICD (automatic cardioverter/defibrillator) present History of cholecystectomy Hx of section Family History Father Hypertension Heart disease Mother Breast cancer Family history of thyroid problem Social History Housing: Apartment Alcohol intake: former Patient Tobacco Use Status: Never used Tobacco e-Cigarette/Vaping Use: Never Used service: No Current occupational status: unemployed Cognitive needs: Yes (cane) Hearing needs: No Vision needs: Yes (rx contacts) Physical Exam Vital Signs: Last Vital Signs Pulse 88 06/30/25 11:57 BP 126/72 06/30/25 11:57 Pulse Ox 98 06/30/25 11:57 Oxygen Delivery Method Room Air 06/30/25 11:57 BMI result Body Mass Index 37.4 Comfortable Neck supple no JVD. Lungs entry equal no rales. Heart S1-S2 heard no gallop or rub. Abdomen soft nontender. Neuro alert awake oriented. No asterixis. Extremities no edema. Results Reviewed Nephrology Results: Hgb, (12.0-16.0) 10.8 g/dl L 06/29/25 WBC, (4.8-10.8) 5.0 X10*3/uL 06/29/25 Plt Count, (160-400) 224 X10*3/uL 06/29/25 Sodium, (135-145) 138 mmol/L 06/29/25 Potassium, (3.3-5.1) 5.4 mmol/L H 06/29/25 Chloride, (96-108) 110 mmol/L H 06/29/25 Carbon Dioxide, (22-29) 23 mmol/L 06/29/25 BUN, (9-16) 43 mg/dL H 06/29/25 Creatinine, (0.5-1.4) 1.43 mg/dL H 06/29/25 Calcium, (8.4-10.2) 9.6 mg/dL 06/29/25 Phosphorus, (2.7-4.5) 5.2 mg/dL H 01/27/25 PTH Intact, (8.7-77.1) 65.2 pg/mL 01/27/25 Urine Protein, (Neg-Trace) 30 (1+) mg/dL H 06/29/25 Renal US 06/18/24 Assessment & Plan Assessment & Plan (1) Type 2 diabetes mellitus with diabetic neuropathy, unspecified: Code(s): E11.40 - Type 2 diabetes mellitus with diabetic neuropathy, unspecified Category: Medical Qualifiers: Diabetes mellitus fresh food manager insulin use: without [facility] use Qualified Code(s): E11.40 - Type 2 diabetes mellitus with diabetic neuropathy, unspecified (2) Proteinuria: Code(s): R80.9 - Proteinuria, unspecified Category: Medical Qualifiers: Proteinuria type: persistent Qualified Code(s): R80.1 - Persistent proteinuria, unspecified (3) CKD (chronic kidney disease): Code(s): N18.9 - Chronic kidney disease, unspecified Category: Medical (4) HTN (hypertension): Code(s): I10 - Essential (primary) hypertension Category: Medical Qualifiers: Hypertension type: unspecified Qualified Code(s): I10 - Essential (primary) hypertension Plan 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 Differential would include FSGS from obesity. Serological workup for nondiabetic causes are unremarkable GILBERTO due to hypoperfusion Renal function is improving She would benefit from SGLT2 inhibitors, for renal protection and improved diabetic control advised reduce salt in diet continue to work on additional weight loss continue to work on improving blood sugar control CHF Severely reduced EF at 27% Now on Entresto and Spironolactone Hyperkalemia Due to the combination of Entresto and spironolactone in the setting of CKD. Discussed low-potassium diet. If potassium does not improve despite staying on low-potassium diet she may require Lokelma or we may have to lower spironolactone. . Anemia - Continue current iron supplementation regimen every other day. - Monitor hemoglobin levels regularly to assess stability. Orders: Orders Basic Metabolic Panel 4 Months N18.9 - Chronic kidney disease, unspecified Coding Level of Care Code Est Pt Level 4 (76594) Diagnoses Type 2 diabetes mellitus with diabetic neuropathy, without long-term current use of insulin E11.40 Diabetes mellitus [facility] insulin use: without [facility] use Persistent proteinuria R80.1 Proteinuria type: persistent CKD (chronic kidney disease) N18.9 Hypertension, unspecified type I10 Hypertension type: unspecified
--- OUTSIDE RECORDS SUMMARY | 2025-06-30 14:55 | XMS_ITS | Clinical Summary ---
Author Organization [facility] Address [address] [place] [address] Care Team Providers Care Toll Settlement Clerk Name Role Phone Unavailable Primary Care Provider [...] Years Used Date Smoking Tobacco: Never Assessed [facility] Utilities Answer Date Recorded In the past 12 months has e [employer], [employer], or water [employer] threatened to shut off services in your [...] any time in the past 12 m [facility], were you homeless or living in a [facility] (including now)? Patient unable to answer 11/12/2024 [...] Nonreactive Nonreactive 11/12/2024 10:22 AM EDT [facility] Comment: Results show no evidence [...] FONTANA LAB BLOOD ORDERABLES Final Result [facility] [address] [place] [address], from Last 3 Months or Most Recently Relevant to Health Maintenance Insurance [facility] Advance Directives * Full Code (Latest Code Status on File) Date Activated Date Inactivated Comments 11/10/2024 7:51 AM Healthcare Agents on File Name Relationship Healthcare Agent Relationshi p Communication Scott Powell Adult child 4. Next of Kin ( Spouse, Adult Child, Parent, Adult Sibling, Grandparent) Benito oLpezda Adult child 4. Next of Kin ( Spouse, Adult Child, Parent, Adult Sibling, Grandparent) Alfred Rios Adult child 4. Next of Kin (Spouse, Adult Child, Parent, Adult Sibling, Grandparent)
--- OUTSIDE RECORDS SUMMARY | 2025-06-30 14:55 | XMS_ITS | Clinical Summary ---
Author Organization [facility] Address [address] [facility] [address] [place] [address] Phone Care Team Providers Care Senior Production Supervisor Name Role Phone Phill Banuelos MD Primary Care Provider [phone] Allergies Active Allergy Reactions Criticality Noted Date [...] 10.1 8.7 - 10.7 mg/dL eGFR Non-Afr [place] Irish 48 Magnesium 1.6 1.6 - 2.4 Hemoglobin A1C 11.5(A) 4.0 - 6.0 01/21/2022 Historical Provider LAB BLOOD ORDERABLES Amarilis l Result from Last 3 Months or Most Recently Relevant to Health Maintenance Insurance Medicaid Medicaid [facility] Medicaid Care Teams Senior Production Supervisor Relationship Specialty Start Date End Date Phill Banuelos MD [address] [place] [address] DR[address] [place], [place] PCP - General Internal Medicine 04/26/21
== END 2025-06-30 12:22 | disposition home or self-care (01) ==
LOC: HO.HKA 11:55
PROVIDERS: PCP Internal Medicine; Visit Provider Internal Medicine Hypertension Specialist
DX: E11.40 Type 2 diabetes mellitus with diabetic neuropathy, unspecified (principal); R80.1 Persistent proteinuria, unspecified; I12.9 Hypertensive chronic kidney disease with stage 1 through stage 4 chronic kidney disease, or unspecified chronic kidney disease; N18.9 Chronic kidney disease, unspecified
CPT/HCPCS: 99214

== ENCOUNTER → 2025-06-30 11:54 | Outpatient (BNVA) | payer OTHER, SELFPAY | PROVIDERS: PCP Internal Medicine; Visit Provider Internal Medicine Hypertension Specialist | DX: E11.22 Type 2 diabetes mellitus with diabetic chronic kidney disease (principal); E11.40 Type 2 diabetes mellitus with diabetic neuropathy, unspecified; R80.1 Persistent proteinuria, unspecified; N18.31 Chronic kidney disease, stage 3a | CPT/HCPCS: 99212 ==